=== PATIENT | male | born 1950 | race Caucasian/White ===

== ENCOUNTER 2016-10-23 13:14 | Emergency (ER) | payer MEDICARE, OTHER ==
[~2016-10-23] VITALS: Ht 162.6 cm; Wt 77.1 kg
--- NOTE | 2016-10-23 14:25 | REP ---
Clinical: EtOH abuse. Fall. Findings: Age-related atrophy and microvascular ischemic changes are appreciated. The ventricles and sulci are symmetric. Staton-white differentiation is maintained. There is no evidence for acute intracranial hemorrhage, mass/mass effect, pathology or infarction. No extra-axial fluid collection. Calvarium is intact. Paranasal sinuses and mastoid air cells are clear. Impression: Age related atrophy and microvascular ischemic changes. No acute intracranial hemorrhage, infarction, or mass/mass effect. Signed by Ahsan Weinstein MD 10/23/2016 02:16 P
--- NOTE | 2016-10-23 14:27 | REP ---
Clinical: EtOH abuse. Fall. Technique: Axial noncontrast images from the skull base to the thoracic inlet with coronal and sagittal re-formations. Findings: Moderate to advanced multilevel degenerative disc osteophyte complexes are noted. Alignment is maintained. No acute fracture / compression injury or subluxation. Spinal canal is patent. Posterior elements and spinous processes are intact. Paravertebral soft tissues normal. Impression: Moderate/advanced multilevel degenerative disc osteophyte complexes. No acute fracture / compression injury or subluxation. Signed by Ahsan Weinstein MD 10/23/2016 02:19 P
[2016-10-23 15:30] VITALS: BP 140/78
== END 2016-10-23 15:31 | disposition home or self-care (01) ==
LOC: EDBD 13:14 → EDUNIT# 13:14 → M ED 14:19
DX: F10.129 Alcohol abuse with intoxication, unspecified (principal); W19.XXXA Unspecified fall, initial encounter; Y92.410 Unspecified street and highway as the place of occurrence of the external cause; Y93.9 Activity, unspecified; Y99.9 Unspecified external cause status; M25.78 Osteophyte, vertebrae

== ENCOUNTER 2016-12-07 21:44 | Inpatient (IN) | payer MEDICARE ==
[~2016-12-07] VITALS: Ht 162.6 cm; Wt 73.5 kg
[2016-12-07 04:25] VITALS: BP 150/101
[2016-12-07] MEDS ORDERED: NS 1,000 ML IV ONE (22:00)
[2016-12-07 22:09] LABS: MEAN CORPUSCULAR HEMOGLOBIN 33.7 pg (27.0-33.0); MEAN CORPUSCULAR HGB CONC 34.1 g/dl (32.0-36.5); RED CELL DISTRIBUTION WIDTH 12.7 % (11.5-14.5); WHITE BLOOD COUNT 8.9 K/mm3 (4.0-10.0)
[2016-12-07 22:14] LABS: INR 1.02
[2016-12-07 22:33] LABS: ALBUMIN 3.8 GM/DL (3.2-5.2); ALKALINE PHOSPHATASE 140 U/L (45-117); ALT/SGPT 203 U/L (12-78); ANION GAP 15 MEQ/L (8-16); AST/SGOT 172 U/L (15-37); BILIRUBIN,DIRECT 0.3 MG/DL (0.0-0.2); BILIRUBIN,TOTAL 0.7 MG/DL (0.2-1.0); BLOOD UREA NITROGEN 9 MG/DL (7-18); CALCIUM LEVEL 8.6 MG/DL (8.8-10.2); CARBON DIOXIDE LEVEL 21 MEQ/L (21-32); CHLORIDE LEVEL 97 MEQ/L (98-107); CREATININE FOR GFR 1.08 MG/DL (0.70-1.30); GLOMERULAR FILTRATION RATE > 60.0 (>49); GLUCOSE, FASTING 152 MG/DL (80-110); POTASSIUM SERUM 3.4 MEQ/L (3.5-5.1); SODIUM LEVEL 133 MEQ/L (136-145)
--- NOTE | 2016-12-07 22:50 | REPUSA ---
CT of the head Clinical history: fall. Comparison: 10/23/2016. Protocol: Multiple axial CT images obtained with 5 mm slice thickness were obtained through the head without administration of contrast. Findings: The ventricles and sulci are symmetric but prominent in size bilaterally. There are periven tricular areas of low attenuation throughout the deep white matter. There is no evidence of acute hem orrhage or infarct. There is no midline shift, mass effect, or extra-axial fluid collection. The osse ous structures are unremarkable. The visualized paranasal sinuses and mastoid air cells are clear. Impression: No acute hemorrhage or infarct. Findings are consistent with stable age-related atrophy a nd chronic small vessel ischemic disease.
--- NOTE | 2016-12-07 23:00 | REPUSA ---
CT of the facial bones without contrast Clinical history: Pain, injury. Technique: Multiple axial CT images were obtained through the facial bones and paranasal sinuses util izing 3 mm axial slices without administration of contrast. Coronal and sagittal reconstructions were also obtained. Findings: There is mild chronic mucosal thickening in the posterior inferior left maxillary sinus.Th e other visualized paranasal sinuses are clear. The osteomeatal complexes are patent bilaterally. The nasal septum is midline. The visualized mastoid air cells are clear. The osseous structures do not d emonstrate any acute abnormalities. The superficial soft tissues are within normal limits. Impression: No acute osseous abnormality. Moderate mucosal changes in the left maxillary sinus.
--- NOTE | 2016-12-07 23:00 | REPUSA ---
CT of the cervical spine Clinical history: Pain. Technique: Multiple axial CT images were obtained through the cervical spine without administration o f contrast. Coronal and sagittal 3-D reconstructed images were also obtained. Comparison: None. Findings: The cervical vertebral bodies are in satisfactory positioning and alignment. No fractures or dislocat ions are demonstrated. The odontoid process is intact. Intervertebral disc spaces are moderately narr owed at C5/C6 and C6/C7. Mild bilateral facet arthropathy with overhanging osteophytes are noted. The re is no evidence of facet subluxation. The neural foramen appear grossly patent. The cervical crania l junction is intact. The cervical spinal canal demonstrates normal caliber and contour without evide nce of spinal stenosis. The surrounding soft tissues are within normal limits. Impression: No acute fracture or traumatic injury. Moderate spondylosis as described.
[2016-12-08] MEDS ORDERED: levETIRAcetam INJection 1,000 MG in D5W 100 ML IV ONE (00:15)
[2016-12-08] MEDS ORDERED: LORazepam 2 MG/ML VIAL (J2060) IV STA ×4 (00:23→00:55)
[2016-12-08] MEDS ORDERED: LORazepam 2 MG TAB PO PRN (00:30)
[2016-12-08] MEDS: KCL 20MEQ in NS 1000ML 1,000 ML IV SCH ×2 (00:41→19:33)
[2016-12-08] MEDS ORDERED: LORazepam 2 MG/ML VIAL (J2060) As Ordered ONE (00:56)
--- NOTE | 2016-12-08 01:28 | HPEPDOC ---
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 It was initially unclear what had happened to him, but it appeared that he had fallen and he was very confused. After being in the ER for a little while, he experienced a witnessed generalized tonic -clonic seizure. This lasted approximately 45-60 seconds and then self resolved. He experienced urinary incontinence during seizure. He also appears to have bit his tongue. The patient is unable to participate in the interview, and is extremely combative, constantly trying to get out of bed. We have no history on the patient from the EMR, I spoke to his son, Tobias Monique, who was listed as the next of kin. The son told me about the alcoholism and the prior injury leading to a TBI. The son also tells me, that the patient commonly runs out of alcohol before he receives his next paycheck, and he thinks that the patient has not received a check in a couple weeks. He reports that the patient has experienced alcohol withdrawal before, but he does not recall any history of seizures. Past medical history: alcoholism and prior injury resulting in TBI Past surgical history: Unknown Family history: Unknown Social history: The patient is an alcoholic. The son tells me that he thinks he was living in a hotel, as he does not currently have a place to live. Allergies: No known drug allergies Review of systems: Unable to obtain secondary to the patient's encephalopathy and combativeness as a result of his alcohol withdrawal and postictal stage Home meds: See below Physical exam:Please note that the exam was very limited secondary to the patient's constant combativeness. He had to be restrained by 2 male staff in order for me to examine him. Vital signs: Vital Signs Date Time Temp Pulse Resp B/P (MAP) Pulse Ox O2 Delivery O2 Flow Rate FiO2 12/08/16 00:42 124 20 156/108 (124) Room Air 12/08/16 00:29 98 12/07/16 21:54 98.5 Gen.: awake, combative, trying to get out of bed, Eyes: Extraocular movements intact ENT: There is dried blood on his lips. It appears that he might have a tongue laceration. Cardiovascular: RRR, no murmurs rubs or gallops Lungs: clear to auscultation bilaterally from an anterior position Abdomen: Soft, NT/ND, normal BS Musculoskeletal: normal range of motion Extremities: No peripheral edema Neuro: Awake and speaking; moving all extremities; the patient is unable to tell me his name, but reportedly when he first arrived, he knew his name and date Psych: Combative, requiring multiple male staff to restrain him Labs and radiology: See below Potassium 3.4 AST 172, ALT 203, alkaline phosphatase 140 Ammonia 14 Blood alcohol level undetectable CT of the head, C-spine, and face are unremarkable for acute findings Assessment and plan: 66-year-old male with alcoholism and prior injury resulting in TBI who presented with confusion and apparent fall. While in the emergency department, he experienced a witnessed generalized tonic-clonic seizure. 1. Generalized tonic-clonic seizure: It is suspected that this is secondary to alcohol withdrawal. The patient has received Ativan in the ER, and we will initiate the CIWA protocol in the ICU. He will also be receiving daily MVI, thiamine, and folate. At this time, the patient is too confused to safely take things orally, so he will be nothing by mouth and will have gentle IV fluids. Additionally, the patient was loaded with Keppra in the ED. We will get an EEG, and we'll continue scheduled Keppra until the EEG results are back. 2. Hypokalemia: We will replace this in the IV fluids. 3. Confusion: Most likely, it appears that this is encephalopathy secondary to alcohol withdrawal and postictal state. We now suspect that the fall he appears to have experienced prior to arrival was also likely secondary to a seizure. 4. Transaminitis: Suspect this is secondary to his alcohol use. He has had a history of minor elevations in our EMR, but this is much higher than it usually is. We'll continue to trend. When the patient stabilizes, he may benefit from a right upper quadrant ultrasound. DVT prophylaxis: Lovenox Dispo: the patient will be admitted as an inpatient to the service of Dr. Phipps. Prognosis at this time is guarded, as we have very little history on the patient. We will continue to reassess the clinical situation. MEG is korina Monique [phone]. His daughter is Irma Monique [phone]. CODE STATUS: Full Code Vital Signs Vital Signs Date Time Temp Pulse Resp B/P (MAP) Pulse Ox O2 Delivery O2 Flow Rate FiO2 12/08/16 00:42 124 20 156/108 (124) Room Air 12/08/16 00:29 98 12/07/16 21:54 98.5 Laboratory Data Labs 24H Laboratory Tests 2 12/07/16 21:59: Prothrombin Time 13.5, Prothromb Time International Ratio 1.02, Anion Gap 15, Glomerular Filtration Rate > 60.0, Calcium Level 8.6L, Aspartate Amino Transf ( AST/SGOT) 172H, Alanine Aminotransferase (ALT/SGPT) 203H, Alkaline Phosphatase 140H, Total Bilirubin 0.7, Direct Bilirubin 0.3H, Total Protein 8.0, Albumin 3.8 , Albumin/Globulin Ratio 0.90L, Ethyl Alcohol Level < 0.003 12/07/16 23:04: Ammonia 14 12/08/16 00:53: Urine Appearance CLEAR, Urine Color YELLOW, Urine pH 5.0, Urine Specific [place] 1.010, Urine Protein 1+H, Urine Glucose (UA) 1+H, Urine Ketones 1+H, Urine Urobilinogen 0.2, Urine Bilirubin NEGATIVE, Urine Leukocyte Esterase NEGATIVE, Urine Blood 2+H, Urine Nitrite NEGATIVE, Urine WBC (Auto) 0, Urine RBC (Auto) 1, Urine Hyaline Casts (Auto) 0, Urine Bacteria (Auto) 1+H, Urine Squamous Epithelial Cells 0, Urine Sperm (Auto) CBC/BMP Laboratory Tests 12/07/16 21:59 Red Blood Count 4.72, Mean Corpuscular Volume 99.0 H, Mean Corpuscular Hemoglobin 33.7 H, Mean Corpuscular Hemoglobin Concent 34.1, Red Cell Distribution Width 12.7 Home Medications No Active Prescriptions or Reported Meds Allergies Coded Allergies: No Known Drug Allergy (Verified Allergy, Unknown, 11/05/12) IRMA GALLARDO December 08, 2016 01:28
[2016-12-08 04:00] VITALS: BP 150/101
[2016-12-08 07:47] VITALS: BP 127/84
[2016-12-08 07:57] LABS: BASO % 0.2 % (0.0-1.0); EOS % 0.2 % (0.0-3.0); LARGE UNSTAINED CELL # 0.2 K/mm3 (0.0-0.4); LARGE UNSTAINED CELL % 1.5 % (0.0-4.0); LYMPH # 0.6 K/mm3 (1.5-4.5); MEAN CORPUSCULAR HEMOGLOBIN 33.4 pg (27.0-33.0); MEAN CORPUSCULAR HGB CONC 35.4 g/dl (32.0-36.5); MEAN CORPUSCULAR VOLUME 94.5 fl (80.0-96.0); MONO # 0.6 K/mm3 (0.0-0.8); MONO % 5.9 % (0.0-5.0); NEUTROPHILS # 9.4 K/mm3 (1.8-7.7); NEUTROPHILS % 88.2 % (36.0-66.0); PLATELET COUNT, AUTOMATED 123 k/mm3 (150-450); RED CELL DISTRIBUTION WIDTH 12.6 % (11.5-14.5); WHITE BLOOD COUNT 10.7 K/mm3 (4.0-10.0)
[2016-12-08 08:13] LABS: ALBUMIN 3.5 GM/DL (3.2-5.2); ALBUMIN/GLOBULIN RATIO 1.03 (1.00-1.93); ALKALINE PHOSPHATASE 113 U/L (45-117); ALT/SGPT 155 U/L (12-78); ANION GAP 10 MEQ/L (8-16); AST/SGOT 129 U/L (15-37); BILIRUBIN,TOTAL 1.4 MG/DL (0.2-1.0); BLOOD UREA NITROGEN 6 MG/DL (7-18); CARBON DIOXIDE LEVEL 23 MEQ/L (21-32); CHLORIDE LEVEL 99 MEQ/L (98-107); CREATININE FOR GFR 0.73 MG/DL (0.70-1.30); GLOMERULAR FILTRATION RATE > 60.0 (>49); GLUCOSE, FASTING 96 MG/DL (80-110); POTASSIUM SERUM 3.7 MEQ/L (3.5-5.1); SODIUM LEVEL 132 MEQ/L (136-145); TOTAL PROTEIN 6.9 GM/DL (6.4-8.2)
--- NOTE | 2016-12-08 08:43 | IPNPDOC ---
Subjective Date Seen The patient was seen on 12/08/16. Subjective Chief Complaint/HPI The patient is a 66-year-old male admitted with a reason for visit of Seizure. Events since last encounter pt seen and examined, oriented to self and time but not to place, very sleepy, no overnight events per nursing since he moved to the floor General: Reports: ROS Unobtainable Objective Physical Examination General Exam: Positive: No Acute Distress, Other (lethargic) ENT Exam: Positive: Atraumatic, Mucous membr. moist/pink Chest Exam: Positive: Clear to auscultation, Normal air movement Heart Exam: Positive: Tachycardic Abdomen Exam: Positive: Normal bowel sounds, Soft Extremity Exam: Negative: Cyanosis, Edema, Normal pulses, Tenderness, Swelling , Other Neuro Exam: Positive: Other (oriented X2 unable to follow commands) Assessment /Plan Problems (1) Metabolic encephalopathy Status: Acute Problem Text: * pt lives independently per son, and drinks etoh daily * he had a seizure in ED, received Ativan and keppra * has not had any seizures since * continue keppra bid, ativan prn, serax 10Q8 * continue neuro checks, seizure precautions and sitter (2) Seizure Status: Acute Problem Text: * continue keppra, ativan and serax * seizure precautions * likely secondary to etoh withdrawals (3) Hypokalemia Status: Resolved (4) Hyponatremia Status: Acute Response to Treatment: Stable Problem Text: * likely secondary to etoh abuse (5) Transaminitis Status: Acute (6) Thrombocytopenia Status: Acute (7) Alcohol abuse Status: Chronic Plan/VTE VTE Prophylaxis Ordered?: Yes VS, I&O, 24H, [facility] Vital Signs/I&O Vital Signs Date Time Temp Pulse Resp B/P (MAP) Pulse Ox O2 Delivery O2 Flow Rate FiO2 12/08/16 07:47 106 127/84 12/08/16 07:47 100.2 20 96 Room Air I&O- Last 24 Hours up to 6 AM 12/08/16 06:00 Intake Total 1325 ml Output Total 400 ml Balance 925 ml Laboratory Data 24H LABS Laboratory Tests 2 12/07/16 21:59: Prothrombin Time 13.5, Prothromb Time International Ratio 1.02, Anion Gap 15, Glomerular Filtration Rate > 60.0, Calcium Level 8.6L, Aspartate Amino Transf ( AST/SGOT) 172H, Alanine Aminotransferase (ALT/SGPT) 203H, Alkaline Phosphatase 140H, Total Bilirubin 0.7, Direct Bilirubin 0.3H, Total Protein 8.0, Albumin 3.8 , Albumin/Globulin Ratio 0.90L, Ethyl Alcohol Level < 0.003 12/07/16 23:04: Ammonia 14 12/08/16 00:53: Urine Appearance CLEAR, Urine Color YELLOW, Urine pH 5.0, Urine Specific [place] 1.010, Urine Protein 1+H, Urine Glucose (UA) 1+H, Urine Ketones 1+H, Urine Urobilinogen 0.2, Urine Bilirubin NEGATIVE, Urine Leukocyte Esterase NEGATIVE, Urine Blood 2+H, Urine Nitrite NEGATIVE, Urine WBC (Auto) 0, Urine RBC (Auto) 1, Urine Hyaline Casts (Auto) 0, Urine Bacteria (Auto) 1+H, Urine Squamous Epithelial Cells 0, Urine Sperm (Auto) 12/08/16 07:32: Anion Gap 10, Glomerular Filtration Rate > 60.0, Calcium Level 8.0L, Aspartate Amino Transf (AST/SGOT) 129H, Alanine Aminotransferase (ALT/SGPT) 155H, Alkaline Phosphatase 113, Total Bilirubin 1.4#H, Total Protein 6.9, Albumin 3.5 , Albumin/Globulin Ratio 1.03, White Blood Count 10.7H, Red Blood Count 4.49, Hemoglobin 15.0, Hematocrit 42.4, Mean Corpuscular Volume 94.5, Mean Corpuscular Hemoglobin 33.4H, Mean Corpuscular Hemoglobin Concent 35.4, Red Cell Distribution Width 12.6, Platelet Count 123L, Neutrophils (%) (Auto) 88.2H , Lymphocytes (%) (Auto) 4.0L, Monocytes (%) (Auto) 5.9H, Eosinophils (%) (Auto ) 0.2, Basophils (%) (Auto) 0.2, Neutrophils # (Auto) 9.4H, Lymphocytes # (Auto ) 0.6L, Monocytes # (Auto) 0.6, Eosinophils # (Auto) 0.0, Basophils # (Auto) 0.0 , Large Unclassified Cells % 1.5, Large Unclassified Cells # 0.2, Blood Urea Nitrogen 6L, Creatinine 0.73, Sodium Level 132L, Potassium Level 3.7, Chloride Level 99, Carbon Dioxide Level 23 CBC/BMP Laboratory Tests 12/07/16 21:59 Red Blood Count 4.72, Mean Corpuscular Volume 99.0 H, Mean Corpuscular Hemoglobin 33.7 H, Mean Corpuscular Hemoglobin Concent 34.1, Red Cell Distribution Width 12.7 12/08/16 07:32 Red Blood Count 4.49, Mean Corpuscular Volume 94.5, Mean Corpuscular Hemoglobin 33.4 H, Mean Corpuscular Hemoglobin Concent 35.4, Red Cell Distribution Width 12.6, Neutrophils (%) (Auto) 88.2 H, Lymphocytes (%) (Auto) 4.0 L, Monocytes (% ) (Auto) 5.9 H, Eosinophils (%) (Auto) 0.2, Basophils (%) (Auto) 0.2, Neutrophils # (Auto) 9.4 H, Lymphocytes # (Auto) 0.6 L, Monocytes # (Auto) 0.6, Eosinophils # (Auto) 0.0, Basophils # (Auto) 0.0, Calcium Level 8.0 L, Aspartate Amino Transf (AST/SGOT) 129 H, Alanine Aminotransferase (ALT/SGPT) 155 H, Alkaline Phosphatase 113, Total Bilirubin 1.4 #H, Total Protein 6.9, Albumin 3.5 RADHA TAVARES DO December 08, 2016 08:43
[2016-12-08] MEDS ORDERED: MULTIVITAMIN -ADULT INJECTION 10 ML, THIAMINE INJection 100 MG, FOLIC ACID 1 MG in NS 1... IV ONE (09:00)
[2016-12-08] MEDS ORDERED: MULTIVITAMINS/MINERALS THERAP 1 TAB PO SCH (09:00)
[2016-12-08] MEDS ORDERED: THIAMINE 100 MG TAB PO SCH (09:00)
[2016-12-08] MEDS ORDERED: FOLIC ACID 1 MG TAB PO SCH (09:00)
[2016-12-08] MEDS: OXAZEPAM 10 MG CAP PO SCH ×3 (09:03→21:53)
[2016-12-08] MEDS: ENOXAPARIN 40 MG/0.4 ML SYRINGE (J1650) SC SCH (09:03)
[2016-12-08 11:47] VITALS: BP 133/89
[2016-12-08] MEDS: levETIRAcetam INJection 500 MG in D5W MINI-BAG PLUS 100 ML IV SCH (12:01)
[2016-12-08 15:46] VITALS: BP 133/91
[2016-12-08 20:00] VITALS: BP 147/88
[2016-12-09] VITALS (30 sets, daily range): BP systolic 118–177; BP diastolic 76–110
[2016-12-09] MEDS: levETIRAcetam INJection 500 MG in D5W MINI-BAG PLUS 100 ML IV SCH ×3 (00:20→23:57)
[2016-12-09] MEDS: LORazepam 2 MG/ML VIAL (J2060) IV PRN ×4 (01:49→22:44)
[2016-12-09] MEDS ORDERED: LORazepam 2 MG/ML VIAL (J2060) IV ONE (02:20)
[2016-12-09] MEDS ORDERED: diphenhydrAMINE INJ 50MG/ML VIAL (J1200) As Ordered ONE ×2 (03:03→03:11)
[2016-12-09] MEDS ORDERED: HALOPERIDOL 5 MG/ML VIAL (J1630) As Ordered ONE (03:10)
[2016-12-09] MEDS ORDERED: HALOPERIDOL 5 MG/ML VIAL (J1630) IM STA (03:57)
[2016-12-09] MEDS ORDERED: LORazepam 2 MG/ML VIAL (J2060) IV STA (03:57)
[2016-12-09] MEDS ORDERED: diphenhydrAMINE INJ 50MG/ML VIAL (J1200) IV STA (03:57)
[2016-12-09 05:05] LABS: ALBUMIN 3.3 GM/DL (3.2-5.2); ALBUMIN/GLOBULIN RATIO 0.83 (1.00-1.93); ALKALINE PHOSPHATASE 94 U/L (45-117); ALT/SGPT 118 U/L (12-78); ANION GAP 10 MEQ/L (8-16); AST/SGOT 102 U/L (15-37); BLOOD UREA NITROGEN 6 MG/DL (7-18); CALCIUM LEVEL 8.3 MG/DL (8.8-10.2); CARBON DIOXIDE LEVEL 22 MEQ/L (21-32); CHLORIDE LEVEL 103 MEQ/L (98-107); GLOMERULAR FILTRATION RATE > 60.0 (>49); GLUCOSE, FASTING 96 MG/DL (80-110); POTASSIUM SERUM 3.5 MEQ/L (3.5-5.1); SODIUM LEVEL 135 MEQ/L (136-145); TOTAL PROTEIN 7.3 GM/DL (6.4-8.2)
[2016-12-09 05:11] LABS: BASO % 0.3 % (0.0-1.0); EOS % 0.6 % (0.0-3.0); LARGE UNSTAINED CELL # 0.2 K/mm3 (0.0-0.4); LARGE UNSTAINED CELL % 2.3 % (0.0-4.0); LYMPH # 0.9 K/mm3 (1.5-4.5); LYMPH % 10.8 % (24.0-44.0); MEAN CORPUSCULAR HEMOGLOBIN 32.8 pg (27.0-33.0); MEAN CORPUSCULAR HGB CONC 33.7 g/dl (32.0-36.5); MEAN CORPUSCULAR VOLUME 97.4 fl (80.0-96.0); MONO # 0.5 K/mm3 (0.0-0.8); MONO % 5.9 % (0.0-5.0); NEUTROPHILS % 80.1 % (36.0-66.0); PLATELET COUNT, AUTOMATED 108 k/mm3 (150-450); RED CELL DISTRIBUTION WIDTH 12.3 % (11.5-14.5); WHITE BLOOD COUNT 8.7 K/mm3 (4.0-10.0)
[2016-12-09] MEDS: OXAZEPAM 15 MG CAP PO SCH ×3 (06:00→20:50)
[2016-12-09] MEDS: ENOXAPARIN 40 MG/0.4 ML SYRINGE (J1650) SC SCH (09:45)
[2016-12-09] MEDS: KCL 20MEQ in NS 1000ML 1,000 ML IV SCH ×2 (09:46→22:44)
--- NOTE | 2016-12-09 10:16 | IPNPDOC ---
Subjective Date Seen The patient was seen on 12/09/16. Subjective Chief Complaint/HPI The patient is a 66-year-old male admitted with a reason for visit of Seizure. Events since last encounter pt seen and examined, was sleeping, he was very agitated overnight requiring multiple doses of Ativan and Haldol, now sleeping, General: Reports: ROS Unobtainable Objective Physical Examination General Exam: Positive: No Acute Distress, Other (lethargic) ENT Exam: Positive: Atraumatic, Mucous membr. moist/pink Chest Exam: Positive: Clear to auscultation, Normal air movement Heart Exam: Positive: Tachycardic Abdomen Exam: Positive: Normal bowel sounds, Soft Extremity Exam: Negative: Cyanosis, Edema, Normal pulses, Tenderness, Swelling , Other Neuro Exam: Positive: Other (oriented X2 unable to follow commands) Assessment /Plan Problems (1) Alcohol dependence with withdrawal Status: Acute Problem Text: * s/p seizures in ED on admission, he was started on keppra and he was given multiple doses of ativan * he was sleeping most of day on 12/08 and would wake up but would be very confused with hallucinations * overnight last night again was agitated, requiring a total of 12 mg of ativan and 6mg of haldol * continue Serax which pt will receive when he wakes up * continue to monitor on tele, pt continues to be tachycardic with heart rate in 120's (2) Metabolic encephalopathy Status: Acute Problem Text: * pt lives independently per son, and drinks etoh daily * he had a seizure in ED, received Ativan and keppra * has not had any seizures since * continue keppra bid, ativan prn, serax 15Q8 * continue neuro checks, seizure precautions and sitter (3) Seizure Status: Acute Problem Text: * continue keppra, ativan and serax * seizure precautions * likely secondary to etoh withdrawals (4) Hypokalemia Status: Resolved (5) Hyponatremia Status: Resolved Response to Treatment: Stable Problem Text: * likely secondary to etoh abuse (6) Transaminitis Status: Acute Response to Treatment: Worse Problem Text: * likely secondary to chronic liver disease due to etoh abuse * hepatitis panel negative * bilirubin continues to worsen (7) Thrombocytopenia Status: Acute Response to Treatment: Worse Problem Text: * no obvious signs of bleeding * continue to monitor Plan/VTE VTE Prophylaxis Ordered?: Yes VS, I&O, 24H, [facility] Vital Signs/I&O Vital Signs Date Time Temp Pulse Resp B/P (MAP) Pulse Ox O2 Delivery O2 Flow Rate FiO2 12/09/16 08:00 106 18 146/90 (108) 97 Nasal Cannula 3.0 12/09/16 04:02 98.1 I&O- Last 24 Hours up to 6 AM 12/09/16 05:59 Intake Total 775 ml Output Total 1425 ml Balance -650 ml Laboratory Data 24H LABS Laboratory Tests 2 12/09/16 04:24: White Blood Count 8.7, Red Blood Count 4.64, Hemoglobin 15.3, Hematocrit 45.2, Mean Corpuscular Volume 97.4H, Mean Corpuscular Hemoglobin 32.8, Mean Corpuscular Hemoglobin Concent 33.7, Red Cell Distribution Width 12.3, Platelet Count 108L, Neutrophils (%) (Auto) 80.1H, Lymphocytes (%) (Auto) 10.8L, Monocytes (%) (Auto) 5.9H, Eosinophils (%) (Auto) 0.6, Basophils (%) (Auto) 0.3 , Neutrophils # (Auto) 7.0, Lymphocytes # (Auto) 0.9L, Monocytes # (Auto) 0.5, Eosinophils # (Auto) 0.0, Basophils # (Auto) 0.0, Large Unclassified Cells % 2.3 , Large Unclassified Cells # 0.2, Anion Gap 10, Glomerular Filtration Rate > 60.0, Blood Urea Nitrogen 6L, Creatinine 0.90, Sodium Level 135L, Potassium Level 3.5, Chloride Level 103, Carbon Dioxide Level 22, Calcium Level 8.3L, Aspartate Amino Transf (AST/SGOT) 102H, Alanine Aminotransferase (ALT/SGPT) 118H , Alkaline Phosphatase 94, Total Bilirubin 2.0H, Total Protein 7.3, Albumin 3.3 , Magnesium Level 2.0, Albumin/Globulin Ratio 0.83L CBC/BMP Laboratory Tests 12/09/16 04:24 Red Blood Count 4.64, Mean Corpuscular Volume 97.4 H, Mean Corpuscular Hemoglobin 32.8, Mean Corpuscular Hemoglobin Concent 33.7, Red Cell Distribution Width 12.3, Neutrophils (%) (Auto) 80.1 H, Lymphocytes (%) (Auto) 10.8 L, Monocytes (%) (Auto) 5.9 H, Eosinophils (%) (Auto) 0.6, Basophils (%) ( Auto) 0.3, Neutrophils # (Auto) 7.0, Lymphocytes # (Auto) 0.9 L, Monocytes # ( Auto) 0.5, Eosinophils # (Auto) 0.0, Basophils # (Auto) 0.0, Calcium Level 8.3 L , Aspartate Amino Transf (AST/SGOT) 102 H, Alanine Aminotransferase (ALT/SGPT) 118 H, Alkaline Phosphatase 94, Total Bilirubin 2.0 H, Total Protein 7.3, Albumin 3.3 RADHA TAVARES DO December 09, 2016 10:16
[2016-12-10] VITALS (10 sets, daily range): BP systolic 123–160; BP diastolic 76–108
[2016-12-10] MEDS: LORazepam 2 MG/ML VIAL (J2060) IV PRN ×2 (00:39→01:52)
[2016-12-10] MEDS ORDERED: diphenhydrAMINE INJ 50MG/ML VIAL (J1200) As Ordered ONE (02:21)
[2016-12-10] MEDS ORDERED: diphenhydrAMINE INJ 50MG/ML VIAL (J1200) IV ONE (02:30)
[2016-12-10] MEDS ORDERED: LORazepam 2 MG/ML VIAL (J2060) IV ONE ×2 (02:30→03:15)
[2016-12-10] MEDS ORDERED: HALOPERIDOL 5 MG/ML VIAL (J1630) IM ONE (03:15)
[2016-12-10 04:34] LABS: BASO % 0.3 % (0.0-1.0); EOS # 0.1 K/mm3 (0.0-0.50); EOS % 1.6 % (0.0-3.0); LARGE UNSTAINED CELL # 0.3 K/mm3 (0.0-0.4); LARGE UNSTAINED CELL % 3.3 % (0.0-4.0); LYMPH % 12.4 % (24.0-44.0); MEAN CORPUSCULAR HEMOGLOBIN 34.2 pg (27.0-33.0); MEAN CORPUSCULAR HGB CONC 35.1 g/dl (32.0-36.5); MEAN CORPUSCULAR VOLUME 97.3 fl (80.0-96.0); MONO # 0.5 K/mm3 (0.0-0.8); NEUTROPHILS # 6.1 K/mm3 (1.8-7.7); NEUTROPHILS % 76.4 % (36.0-66.0); PLATELET COUNT, AUTOMATED 102 k/mm3 (150-450); RED CELL DISTRIBUTION WIDTH 12.1 % (11.5-14.5); WHITE BLOOD COUNT 7.9 K/mm3 (4.0-10.0)
[2016-12-10 05:08] LABS: ALBUMIN 3.2 GM/DL (3.2-5.2); ALBUMIN/GLOBULIN RATIO 0.86 (1.00-1.93); ALKALINE PHOSPHATASE 92 U/L (45-117); ALT/SGPT 97 U/L (12-78); ANION GAP 10 MEQ/L (8-16); AST/SGOT 115 U/L (15-37); BILIRUBIN,TOTAL 1.6 MG/DL (0.2-1.0); BLOOD UREA NITROGEN 6 MG/DL (7-18); CARBON DIOXIDE LEVEL 21 MEQ/L (21-32); CHLORIDE LEVEL 104 MEQ/L (98-107); CREATININE FOR GFR 0.65 MG/DL (0.70-1.30); GLOMERULAR FILTRATION RATE > 60.0 (>49); GLUCOSE, FASTING 87 MG/DL (80-110); MAGNESIUM LEVEL 1.9 MG/DL (1.8-2.4); POTASSIUM SERUM 3.6 MEQ/L (3.5-5.1); SODIUM LEVEL 135 MEQ/L (136-145); TOTAL PROTEIN 6.9 GM/DL (6.4-8.2)
--- NOTE | 2016-12-10 05:10 | EEG ---
DATE OF PROCEDURE: 12/08/2016 REFERRING PHYSICIAN: Dr. Vickie Phipps DIAGNOSIS: Seizure. EEG NUMBER: [id number]. HISTORY: Patient is a 66-year-old man who was admitted at [facility] due to alcoholism and a generalized tonic-clonic seizure. This EEG was done to rule out epileptic potential. He is currently on Keppra, thiamine, folic acid, Serax, Ativan, etc. TECHNICAL DESCRIPTION: This digital EEG was recorded by 21 scalp, ear and two EKG electrodes and was reviewed in bipolar and referential montages following reformatting in 10-20 international electrode placement system. INTERPRETATION: Patient was noted to be in awake and drowsy states during this EEG. Resting awake background rhythm consisted of well-formed posterior dominant rhythm with anterior/posterior gradient comprising of 9 Hz alpha activity measuring 15-40 microvolts in amplitude, which was symmetric and reactive to eye opening. Attenuation of posterior dominant rhythm was seen during transition into drowsiness. Stage I and II sleep were reviewed and were symmetric bilaterally. Hyperventilation could not be performed. Photic stimulation at 3-30 Hz elicited symmetric photic driving especially at mid frequencies. EKG revealed normal sinus rhythm. No focal, lateralizing or epileptiform abnormalities were seen. No clinical or electrographic seizures were recorded. CONCLUSION: This EEG in awake, drowsy states, stage I and II sleep is within normal limits.
[2016-12-10] MEDS: OXAZEPAM 15 MG CAP PO SCH ×3 (06:08→22:25)
[2016-12-10] MEDS: ENOXAPARIN 40 MG/0.4 ML SYRINGE (J1650) SC SCH (08:44)
[2016-12-10] MEDS: levETIRAcetam INJection 500 MG in D5W MINI-BAG PLUS 100 ML IV SCH (12:25)
[2016-12-10] MEDS: KCL 20MEQ in NS 1000ML 1,000 ML IV SCH (12:26)
--- NOTE | 2016-12-10 22:08 | IPNPDOC ---
Subjective Date Seen The patient was seen on 12/10/16. Subjective Chief Complaint/HPI The patient is a 66-year-old male admitted with a reason for visit of Seizure. Objective Physical Examination General Exam: Positive: No Acute Distress, Other (lethargic) ENT Exam: Positive: Atraumatic, Mucous membr. moist/pink Chest Exam: Positive: Clear to auscultation, Normal air movement Heart Exam: Positive: Tachycardic Abdomen Exam: Positive: Normal bowel sounds, Soft Extremity Exam: Negative: Cyanosis, Edema, Normal pulses, Tenderness, Swelling , Other Neuro Exam: Positive: Other (oriented X2 unable to follow commands) Assessment /Plan Problems (1) Alcohol dependence with withdrawal Status: Acute Problem Text: * s/p seizures in ED on admission, he was started on keppra and he was given multiple doses of ativan * he was sleeping most of day on 12/08 and would wake up but would be very confused with hallucinations * overnight last night again was agitated, requiring a total of 12 mg of ativan and 6mg of haldol * continue Serax which pt will receive when he wakes up * continue to monitor on tele, pt continues to be tachycardic with heart rate in 120's (2) Metabolic encephalopathy Status: Acute Problem Text: * pt lives independently per son, and drinks etoh daily * he had a seizure in ED, received Ativan and keppra * has not had any seizures since * continue keppra bid, ativan prn, serax 15Q8 * continue neuro checks, seizure precautions and sitter (3) Seizure Status: Acute Problem Text: * continue keppra, ativan and serax * seizure precautions * likely secondary to etoh withdrawals (4) Hypokalemia Status: Resolved (5) Hyponatremia Status: Resolved Response to Treatment: Stable Problem Text: * likely secondary to etoh abuse (6) Transaminitis Status: Acute Response to Treatment: Worse Problem Text: * likely secondary to chronic liver disease due to etoh abuse * hepatitis panel negative * bilirubin continues to worsen (7) Thrombocytopenia Status: Acute Response to Treatment: Worse Problem Text: * no obvious signs of bleeding * continue to monitor Plan/VTE VTE Prophylaxis Ordered?: Yes VS, I&O, 24H, Fishbone Vital Signs/I&O Vital Signs Date Time Temp Pulse Resp B/P (MAP) Pulse Ox O2 Delivery O2 Flow Rate FiO2 12/10/16 20:00 97.9 96 20 155/101 (119) 96 Room Air 12/10/16 08:02 3.0 I&O- Last 24 Hours up to 6 AM 12/10/16 06:00 Intake Total 2850 ml Output Total 1325 ml Balance 1525 ml Laboratory Data 24H LABS Laboratory Tests 2 12/10/16 04:23: White Blood Count 7.9, Red Blood Count 4.57, Hemoglobin 15.6, Hematocrit 44.5, Mean Corpuscular Volume 97.3H, Mean Corpuscular Hemoglobin 34.2H, Mean Corpuscular Hemoglobin Concent 35.1, Red Cell Distribution Width 12.1, Platelet Count 102L, Neutrophils (%) (Auto) 76.4H, Lymphocytes (%) (Auto) 12.4L, Monocytes (%) (Auto) 6.0H, Eosinophils (%) (Auto) 1.6, Basophils (%) (Auto) 0.3 , Neutrophils # (Auto) 6.1, Lymphocytes # (Auto) 1.0L, Monocytes # (Auto) 0.5, Eosinophils # (Auto) 0.1, Basophils # (Auto) 0.0, Large Unclassified Cells % 3.3 , Large Unclassified Cells # 0.3, Anion Gap 10, Glomerular Filtration Rate > 60.0, Blood Urea Nitrogen 6L, Creatinine 0.65L, Sodium Level 135L, Potassium Level 3.6, Chloride Level 104, Carbon Dioxide Level 21, Calcium Level 8.0L, Aspartate Amino Transf (AST/SGOT) 115H, Alanine Aminotransferase (ALT/SGPT) 97H , Alkaline Phosphatase 92, Total Bilirubin 1.6H, Total Protein 6.9, Albumin 3.2 , Magnesium Level 1.9, Albumin/Globulin Ratio 0.86L CBC/BMP Laboratory Tests 12/10/16 04:23 Red Blood Count 4.57, Mean Corpuscular Volume 97.3 H, Mean Corpuscular Hemoglobin 34.2 H, Mean Corpuscular Hemoglobin Concent 35.1, Red Cell Distribution Width 12.1, Neutrophils (%) (Auto) 76.4 H, Lymphocytes (%) (Auto) 12.4 L, Monocytes (%) (Auto) 6.0 H, Eosinophils (%) (Auto) 1.6, Basophils (%) ( Auto) 0.3, Neutrophils # (Auto) 6.1, Lymphocytes # (Auto) 1.0 L, Monocytes # ( Auto) 0.5, Eosinophils # (Auto) 0.1, Basophils # (Auto) 0.0, Calcium Level 8.0 L , Aspartate Amino Transf (AST/SGOT) 115 H, Alanine Aminotransferase (ALT/SGPT) 97 H, Alkaline Phosphatase 92, Total Bilirubin 1.6 H, Total Protein 6.9, Albumin 3.2 RADHA TAVARES DO December 10, 2016 22:08
[2016-12-11] VITALS: BP 131/74
[2016-12-11] MEDS: KCL 20MEQ in NS 1000ML 1,000 ML IV SCH ×2 (00:29→13:26)
[2016-12-11] MEDS: levETIRAcetam INJection 500 MG in D5W MINI-BAG PLUS 100 ML IV SCH (00:29)
[2016-12-11 04:00] VITALS: BP 130/89
[2016-12-11 04:32] LABS: BASO % 0.5 % (0.0-1.0); EOS # 0.2 K/mm3 (0.0-0.50); EOS % 2.9 % (0.0-3.0); LARGE UNSTAINED CELL # 0.3 K/mm3 (0.0-0.4); LARGE UNSTAINED CELL % 4.4 % (0.0-4.0); LYMPH # 1.1 K/mm3 (1.5-4.5); MEAN CORPUSCULAR HEMOGLOBIN 33.9 pg (27.0-33.0); MONO # 0.7 K/mm3 (0.0-0.8); NEUTROPHILS # 4.5 K/mm3 (1.8-7.7); NEUTROPHILS % 66.2 % (36.0-66.0); PLATELET COUNT, AUTOMATED 134 k/mm3 (150-450); RED CELL DISTRIBUTION WIDTH 12.3 % (11.5-14.5); WHITE BLOOD COUNT 6.8 K/mm3 (4.0-10.0)
[2016-12-11 05:06] LABS: ALBUMIN/GLOBULIN RATIO 0.79 (1.00-1.93); ALKALINE PHOSPHATASE 95 U/L (45-117); ALT/SGPT 86 U/L (12-78); ANION GAP 10 MEQ/L (8-16); AST/SGOT 87 U/L (15-37); BILIRUBIN,TOTAL 1.6 MG/DL (0.2-1.0); BLOOD UREA NITROGEN 8 MG/DL (7-18); CARBON DIOXIDE LEVEL 23 MEQ/L (21-32); CHLORIDE LEVEL 103 MEQ/L (98-107); CREATININE FOR GFR 0.73 MG/DL (0.70-1.30); GLOMERULAR FILTRATION RATE > 60.0 (>49); GLUCOSE, FASTING 72 MG/DL (80-110); MAGNESIUM LEVEL 1.9 MG/DL (1.8-2.4); POTASSIUM SERUM 3.9 MEQ/L (3.5-5.1); SODIUM LEVEL 136 MEQ/L (136-145); TOTAL PROTEIN 6.8 GM/DL (6.4-8.2)
[2016-12-11] MEDS: OXAZEPAM 15 MG CAP PO SCH ×3 (07:02→22:03)
--- NOTE | 2016-12-11 07:30 | REP ---
RIGHT UPPER QUADRANT ULTRASOUND: Real-time sonographic evaluation of the right upper quadrant performed. Gallbladder demonstrates no evidence of intraluminal sludge or calculi, wall thickening or pericholecystic fluid. There is no intrahepatic or extrahepatic biliary dilatation, common bile duct measuring 4 mm in diameter. Liver demonstrates diffuse increased echotexture compatible with diffuse fibrofatty infiltration. No gross liver or pancreatic mass is seen. Pancreatic tail could not be seen due to overlying bowel gas. The right kidney demonstrates no hydronephrosis with normal size at 11 cm in length. IMPRESSION: Diffuse fibrofatty infiltration of the liver. Signed by Marty Staton MD 12/11/2016 07:44 P
[2016-12-11 08:10] VITALS: BP 120/75
[2016-12-11] MEDS: ENOXAPARIN 40 MG/0.4 ML SYRINGE (J1650) SC SCH (09:50)
[2016-12-11 22:00] VITALS: BP 144/84
[2016-12-12] MEDS: KCL 20MEQ in NS 1000ML 1,000 ML IV SCH (01:56)
[2016-12-12] MEDS: OXAZEPAM 15 MG CAP PO SCH (05:17)
[2016-12-12 06:00] VITALS: BP 160/80
[2016-12-12 06:25] LABS: BASO % 0.5 % (0.0-1.0); EOS # 0.2 K/mm3 (0.0-0.50); EOS % 3.4 % (0.0-3.0); LARGE UNSTAINED CELL # 0.3 K/mm3 (0.0-0.4); LARGE UNSTAINED CELL % 3.9 % (0.0-4.0); LYMPH # 1.3 K/mm3 (1.5-4.5); LYMPH % 15.6 % (24.0-44.0); MEAN CORPUSCULAR HEMOGLOBIN 33.5 pg (27.0-33.0); MEAN CORPUSCULAR HGB CONC 35.6 g/dl (32.0-36.5); MEAN CORPUSCULAR VOLUME 94.1 fl (80.0-96.0); MONO # 0.6 K/mm3 (0.0-0.8); MONO % 8.9 % (0.0-5.0); NEUTROPHILS # 4.6 K/mm3 (1.8-7.7); NEUTROPHILS % 67.7 % (36.0-66.0); PLATELET COUNT, AUTOMATED 156 k/mm3 (150-450); RED CELL DISTRIBUTION WIDTH 12.7 % (11.5-14.5); WHITE BLOOD COUNT 6.8 K/mm3 (4.0-10.0)
[2016-12-12 06:38] LABS: ALBUMIN 2.8 GM/DL (3.2-5.2); ALBUMIN/GLOBULIN RATIO 0.76 (1.00-1.93); ALKALINE PHOSPHATASE 127 U/L (45-117); ALT/SGPT 68 U/L (12-78); ANION GAP 7 MEQ/L (8-16); AST/SGOT 50 U/L (15-37); BILIRUBIN,TOTAL 0.9 MG/DL (0.2-1.0); BLOOD UREA NITROGEN 5 MG/DL (7-18); CARBON DIOXIDE LEVEL 22 MEQ/L (21-32); CHLORIDE LEVEL 108 MEQ/L (98-107); CREATININE FOR GFR 0.66 MG/DL (0.70-1.30); GLOMERULAR FILTRATION RATE > 60.0 (>49); GLUCOSE, FASTING 110 MG/DL (80-110); MAGNESIUM LEVEL 1.7 MG/DL (1.8-2.4); POTASSIUM SERUM 3.5 MEQ/L (3.5-5.1); SODIUM LEVEL 137 MEQ/L (136-145); TOTAL PROTEIN 6.5 GM/DL (6.4-8.2)
[2016-12-12] MEDS: ENOXAPARIN 40 MG/0.4 ML SYRINGE (J1650) SC SCH (08:57)
--- NOTE | 2016-12-12 09:27 | IPNPDOC ---
Subjective Date Seen The patient was seen on 12/12/16. Subjective Chief Complaint/HPI The patient is a 66-year-old male admitted with a reason for visit of Seizure. Events since last encounter pt seen and examined, doing well, was up in bed, eating breakfast, no overnight events Constitutional: Denies: Chills, Fever, Night Sweats Cardiovascular: Denies: Chest Pain, Palpitations, Orthopnea, Paroxysmal Noc. Dyspnea, Lt Headedness Gastrointestinal: Denies: Nausea, Vomiting, Abdominal Pain, Diarrhea, Constipation Objective Physical Examination General Exam: Positive: Alert, Cooperative, No Acute Distress, Other (lethargic ) ENT Exam: Positive: Atraumatic, Mucous membr. moist/pink Chest Exam: Positive: Clear to auscultation, Normal air movement Heart Exam: Positive: Rate Normal Abdomen Exam: Positive: Normal bowel sounds, Soft Extremity Exam: Negative: Cyanosis, Edema, Normal pulses, Tenderness, Swelling , Other Assessment /Plan Problems (1) Alcohol dependence with withdrawal Status: Acute Response to Treatment: Improving Problem Text: * s/p seizures in ED on admission, he was started on keppra and he was given multiple doses of ativan * currently awake alert oriented * will d/c keppra * will recommend that pt follows up with neurology outpt * he has no known history of seizure disorders,therefore it is thought to be due to his ETOH * will titrate serax dose * continue folic acid, thiamine and mvi * d/c IV fluids (2) Metabolic encephalopathy Status: Acute Response to Treatment: Improving Problem Text: * pt lives independently per son and daughter, pt drinks etoh daily * he had a seizure in ED, received Ativan and keppra * has not had any seizures since * pt currently is oriented to self place and time (3) Seizure Status: Resolved Problem Text: * will d/c keppra and continue serax * will refer pt to see neurology outpt * he has no history of seizures and 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[employer] (4) Hypokalemia Status: Resolved (5) Hyponatremia Status: Resolved Response to Treatment: Stable Problem Text: * likely secondary to etoh abuse (6) Transaminitis Status: Acute Response to Treatment: Stable Problem Text: * likely secondary to chronic liver disease due to etoh abuse * hepatitis panel negative * bilirubin continues to worsen (7) Thrombocytopenia Status: Acute Response to Treatment: Stable Problem Text: * no obvious signs of bleeding * continue to monitor Plan/VTE VTE Prophylaxis Ordered?: Yes VS, I&O, 24H, [facility] Vital Signs/I&O Vital Signs Date Time Temp Pulse Resp B/P (MAP) Pulse Ox O2 Delivery O2 Flow Rate FiO2 12/12/16 06:00 98.1 81 18 160/80 (106) 98 Room Air 12/10/16 08:02 3.0 I&O- Last 24 Hours up to 6 AM 12/12/16 06:00 Intake Total 2100 ml Balance 2100 ml Laboratory Data 24H LABS Laboratory Tests 2 12/12/16 05:50: White Blood Count 6.8, Red Blood Count 4.23L, Hemoglobin 14.2, Hematocrit 39.8L , Mean Corpuscular Volume 94.1, Mean Corpuscular Hemoglobin 33.5H, Mean Corpuscular Hemoglobin Concent 35.6, Red Cell Distribution Width 12.7, Platelet Count 156, Neutrophils (%) (Auto) 67.7H, Lymphocytes (%) (Auto) 15.6L, Monocytes (%) (Auto) 8.9H, Eosinophils (%) (Auto) 3.4H, Basophils (%) (Auto) 0.5 , Neutrophils # (Auto) 4.6, Lymphocytes # (Auto) 1.3L, Monocytes # (Auto) 0.6, Eosinophils # (Auto) 0.2, Basophils # (Auto) 0.0, Large Unclassified Cells % 3.9 , Large Unclassified Cells # 0.3, Anion Gap 7L, Glomerular Filtration Rate > 60.0, Blood Urea Nitrogen 5L, Creatinine 0.66L, Sodium Level 137, Potassium Level 3.5, Chloride Level 108H, Carbon Dioxide Level 22, Calcium Level 8.0L, Aspartate Amino Transf (AST/SGOT) 50H, Alanine Aminotransferase (ALT/SGPT) 68, Alkaline Phosphatase 127H, Total Bilirubin 0.9, Total Protein 6.5, Albumin 2.8L , Magnesium Level 1.7L, Albumin/Globulin Ratio 0.76L CBC/BMP Laboratory Tests 12/12/16 05:50 Red Blood Count 4.23 L, Mean Corpuscular Volume 94.1, Mean Corpuscular Hemoglobin 33.5 H, Mean Corpuscular Hemoglobin Concent 35.6, Red Cell Distribution Width 12.7, Neutrophils (%) (Auto) 67.7 H, Lymphocytes (%) (Auto) 15.6 L, Monocytes (%) (Auto) 8.9 H, Eosinophils (%) (Auto) 3.4 H, Basophils (%) (Auto) 0.5, Neutrophils # (Auto) 4.6, Lymphocytes # (Auto) 1.3 L, Monocytes # ( Auto) 0.6, Eosinophils # (Auto) 0.2, Basophils # (Auto) 0.0, Calcium Level 8.0 L , Aspartate Amino Transf (AST/SGOT) 50 H, Alanine Aminotransferase (ALT/SGPT) 68 , Alkaline Phosphatase 127 H, Total Bilirubin 0.9, Total Protein 6.5, Albumin 2.8 L RADHA TAVARES DO December 12, 2016 09:27
[2016-12-12] MEDS ORDERED: MAG SULF 1GM/100ML (MAG RUN) 1 GM in APPROPRIATE DILUENT 1 EA IV ONE (10:00)
[2016-12-12] MEDS: THIAMINE 100 MG TAB PO SCH (12:40)
[2016-12-12] MEDS: FOLIC ACID 1 MG TAB PO SCH (12:40)
[2016-12-12] MEDS: MULTIVITAMINS/MINERALS THERAP 1 TAB PO SCH (12:40)
[2016-12-12 14:00] VITALS: BP 132/93
[2016-12-12] MEDS: OXAZEPAM 10 MG CAP PO SCH ×2 (16:25→22:07)
[2016-12-12 22:00] VITALS: BP 169/97
[2016-12-13 06:00] VITALS: BP 124/92
[2016-12-13] MEDS: OXAZEPAM 10 MG CAP PO SCH ×3 (06:24→22:22)
[2016-12-13 06:44] LABS: BASO % 0.6 % (0.0-1.0); EOS # 0.3 K/mm3 (0.0-0.50); EOS % 3.7 % (0.0-3.0); LARGE UNSTAINED CELL # 0.3 K/mm3 (0.0-0.4); LARGE UNSTAINED CELL % 3.6 % (0.0-4.0); LYMPH # 1.5 K/mm3 (1.5-4.5); LYMPH % 18.2 % (24.0-44.0); MEAN CORPUSCULAR HEMOGLOBIN 33.2 pg (27.0-33.0); MEAN CORPUSCULAR HGB CONC 34.9 g/dl (32.0-36.5); MEAN CORPUSCULAR VOLUME 95.2 fl (80.0-96.0); MONO # 0.6 K/mm3 (0.0-0.8); MONO % 8.9 % (0.0-5.0); NEUTROPHILS # 4.5 K/mm3 (1.8-7.7); PLATELET COUNT, AUTOMATED 187 k/mm3 (150-450); RED CELL DISTRIBUTION WIDTH 12.6 % (11.5-14.5); WHITE BLOOD COUNT 6.8 K/mm3 (4.0-10.0)
[2016-12-13 07:00] LABS: ALBUMIN 3.1 GM/DL (3.2-5.2); ALBUMIN/GLOBULIN RATIO 0.78 (1.00-1.93); ALKALINE PHOSPHATASE 109 U/L (45-117); ALT/SGPT 76 U/L (12-78); ANION GAP 7 MEQ/L (8-16); AST/SGOT 58 U/L (15-37); BLOOD UREA NITROGEN 4 MG/DL (7-18); CALCIUM LEVEL 8.7 MG/DL (8.8-10.2); CARBON DIOXIDE LEVEL 26 MEQ/L (21-32); CHLORIDE LEVEL 102 MEQ/L (98-107); CREATININE FOR GFR 0.76 MG/DL (0.70-1.30); GLOMERULAR FILTRATION RATE > 60.0 (>49); GLUCOSE, FASTING 96 MG/DL (80-110); POTASSIUM SERUM 3.6 MEQ/L (3.5-5.1); SODIUM LEVEL 135 MEQ/L (136-145); TOTAL PROTEIN 7.1 GM/DL (6.4-8.2)
[2016-12-13] MEDS: FOLIC ACID 1 MG TAB PO SCH (09:26)
[2016-12-13] MEDS: MULTIVITAMINS/MINERALS THERAP 1 TAB PO SCH (09:26)
[2016-12-13] MEDS: THIAMINE 100 MG TAB PO SCH (09:26)
[2016-12-13] MEDS: ENOXAPARIN 40 MG/0.4 ML SYRINGE (J1650) SC SCH (09:26)
[2016-12-13 14:00] VITALS: BP 131/84
[2016-12-13] MEDS ORDERED: OXAZ10CA PO (17:07)
[2016-12-13] MEDS ORDERED: FOLI1TAB2 PO (17:07)
[2016-12-13] MEDS ORDERED: THIA100TA PO (17:07)
[2016-12-13] MEDS ORDERED: VITMTA PO (17:07)
[2016-12-13 22:00] VITALS: BP 112/76
[2016-12-14] MEDS: OXAZEPAM 10 MG CAP PO SCH (05:35)
[2016-12-14 06:00] VITALS: BP 108/76
[2016-12-14 07:30] LABS: BASO # 0.1 K/mm3 (0.0-0.2); BASO % 0.8 % (0.0-1.0); EOS # 0.3 K/mm3 (0.0-0.50); EOS % 3.6 % (0.0-3.0); LARGE UNSTAINED CELL # 0.3 K/mm3 (0.0-0.4); LARGE UNSTAINED CELL % 3.8 % (0.0-4.0); LYMPH # 1.6 K/mm3 (1.5-4.5); LYMPH % 17.3 % (24.0-44.0); MEAN CORPUSCULAR HEMOGLOBIN 33.7 pg (27.0-33.0); MEAN CORPUSCULAR HGB CONC 35.6 g/dl (32.0-36.5); MEAN CORPUSCULAR VOLUME 94.7 fl (80.0-96.0); MONO # 0.6 K/mm3 (0.0-0.8); MONO % 8.6 % (0.0-5.0); PLATELET COUNT, AUTOMATED 227 k/mm3 (150-450); RED CELL DISTRIBUTION WIDTH 12.5 % (11.5-14.5); WHITE BLOOD COUNT 7.5 K/mm3 (4.0-10.0)
--- NOTE | 2016-12-14 07:39 | DSES ---
DATE OF ADMISSION: 12/08/2016 DATE OF DISCHARGE: 12/13/2016 REASON FOR ADMISSION: Altered mental status, status post seizure. FINAL DIAGNOSES: 1. Alcohol withdrawal 2. Seizure secondary to alcohol withdrawals. 3. Metabolic encephalopathy. 4. Hypokalemia. 5. Hyponatremia. 6. Transaminitis. 7. Thrombocytopenia. PRIMARY CARE PROVIDER: None. The patient used to see Dr. Novak, he is supposed to have an appointment with [facility] but he does not know when. HISTORY OF PRESENT ILLNESS: The patient is a 56-year-old male with history of alcohol abuse presented to the emergency room via emergency medical services (EMS) after he had two episodes of seizures at the hotel. The patient was found down by his girlfriend, she called the ambulance. He was very confused in the emergency room. In the emergency room he experienced a witnessed generalized tonic-clonic seizure which lasted about 45-60 seconds and self resolved. He experienced urinary incontinence during the seizure and he appeared to have bitten his tongue. The patient was unable to participate in the interview due to extreme agitation. He was constantly trying to get out of bed. Most of the history is obtained from medical records. Dr. Gaming who did the admission has also spoken to his son Farzad Monique, who is listed as next of kin. He told her that he has history of alcoholism and a prior head injury. The patient denied any history of known seizure, nor was he on any antiepileptic medications. He was admitted under hospitalist service to the intensive care unit (ICU). HOSPITAL COURSE: The patient was admitted to the ICU. He continued to be extremely agitated requiring large doses of Ativan and Haldol to keep the patient sedated in bed. He also required a bedside sitter. His vitals remained stable. He did not require any airway protection; however, he was made nothing by mouth. He was started on any antibiotic with thiamine, folate, multivitamin. He was also started on Serax; however the first day he did not take any since it was an oral medication. The following night the patient did seem the same. He was somnolent and lethargic most of the day and in the evening and at nighttime he was very agitated requiring again large doses of Ativan up to 12 mg and Haldol intramuscularly (IM). By the third day the patient started to wake up. He did not recall any of the events that had transpired. He was started on a diet which he was able to tolerate well. He was continued on his Serax 50 mg three times a day scheduled. He is also started on Keppra intravenous (IV) in the emergency room which was continued until day three when it was discontinued after briefly speaking with Dr. Ryan who recommended that since the patient has no history of epilepsy that he will likely not need to be on Keppra long-term but he recommended an assessment as an outpatient by neurology once the patient was discharged and cleared. The patient was moved out of the ICU. He was seen by physical therapy who saw him initially on Tuesday but due to some residual confusion he was not cleared initially; however by the second visit the patient was cleared by physical therapy. SOCIAL HISTORY: It was revealed that one daughter presented and visited. She stated that the patient has been living in a motel using his disability check to buy alcohol. He does not have enough money for food or medications since most of it he uses on his alcohol. He has not been following up with any primary care provider. He has not been taking any medications. [facility] was consulted and they recommended the patient follow up with [facility]. 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 Once the discharge plan was in place and the patient was given followup appointment and a primary care provider met with the patient again and son and emphasized the need to stop alcohol and that he will be given Serax and he should not combine Serax with his alcohol. The son had some concerns regarding the patient not being able to go to a food bank to get any food today and that he requested that the patient be discharged in the morning. DISCHARGE INSTRUCTIONS: Discharge instructions were put in the computer. Medications were sent to pharmacy. Discharge condition was stable.
[2016-12-14 08:00] LABS: ALBUMIN 3.3 GM/DL (3.2-5.2); ALBUMIN/GLOBULIN RATIO 0.97 (1.00-1.93); ALKALINE PHOSPHATASE 109 U/L (45-117); ALT/SGPT 88 U/L (12-78); ANION GAP 10 MEQ/L (8-16); AST/SGOT 68 U/L (15-37); BLOOD UREA NITROGEN 6 MG/DL (7-18); CALCIUM LEVEL 8.4 MG/DL (8.8-10.2); CARBON DIOXIDE LEVEL 25 MEQ/L (21-32); CHLORIDE LEVEL 100 MEQ/L (98-107); CREATININE FOR GFR 0.77 MG/DL (0.70-1.30); GLOMERULAR FILTRATION RATE > 60.0 (>49); GLUCOSE, FASTING 96 MG/DL (80-110); MAGNESIUM LEVEL 2.1 MG/DL (1.8-2.4); POTASSIUM SERUM 3.7 MEQ/L (3.5-5.1); SODIUM LEVEL 135 MEQ/L (136-145); TOTAL PROTEIN 6.7 GM/DL (6.4-8.2)
[2016-12-14] MEDS: MULTIVITAMINS/MINERALS THERAP 1 TAB PO SCH (09:31)
[2016-12-14] MEDS: ENOXAPARIN 40 MG/0.4 ML SYRINGE (J1650) SC SCH (09:31)
[2016-12-14] MEDS: THIAMINE 100 MG TAB PO SCH (09:31)
[2016-12-14] MEDS: FOLIC ACID 1 MG TAB PO SCH (09:31)
--- NOTE | 2016-12-14 15:27 | IPNPDOC ---
Text Note Date of Service The patient was seen on 12/14/16. NOTE Pt states he is feeling great. Denies any complaints. No signs of alcohol withdrawal. No acute changes overnight. Son states he prefers to have the patient's primary doctor refer him to a neurologist. Pt does not drive or handle heavy machinery. Please see d/c summary dictated by Dr. Phipps on 12/13/16. VS,Fishbone, I+O VS, Fishbone, I+O Laboratory Tests 12/14/16 06:58 Red Blood Count 4.36, Mean Corpuscular Volume 94.7, Mean Corpuscular Hemoglobin 33.7 H, Mean Corpuscular Hemoglobin Concent 35.6, Red Cell Distribution Width 12.5, Neutrophils (%) (Auto) 66.0, Lymphocytes (%) (Auto) 17.3 L, Monocytes (%) (Auto) 8.6 H, Eosinophils (%) (Auto) 3.6 H, Basophils (%) (Auto) 0.8, Neutrophils # (Auto) 5.0, Lymphocytes # (Auto) 1.6, Monocytes # (Auto) 0.6, Eosinophils # (Auto) 0.3, Basophils # (Auto) 0.1, Calcium Level 8.4 L, Aspartate Amino Transf (AST/SGOT) 68 H, Alanine Aminotransferase (ALT/SGPT) 88 H , Alkaline Phosphatase 109, Total Bilirubin 1.0, Total Protein 6.7, Albumin 3.3 Vital Signs Date Time Temp Pulse Resp B/P (MAP) Pulse Ox O2 Delivery O2 Flow Rate FiO2 12/14/16 09:50 98 Room Air 12/14/16 06:00 98.5 77 15 108/76 (87) 12/10/16 08:02 3.0 I&O- Last 24 Hours up to 6 AM 12/14/16 06:00 Intake Total 1260 ml Balance 1260 ml ALBERT OGLESBY MD December 14, 2016 15:27
== END 2016-12-14 11:50 | disposition home or self-care (01) | DRG 896 ==
LOC: EDBD 21:44 → M ED 22:42 → M ED INP 12-08 00:23 → M ICU 12-08 03:17 → M MS5PR 12-11 10:18
PROVIDERS: ADMIT Hospitalist; ATTEND Internal Medicine
DX: F10.239 Alcohol dependence with withdrawal, unspecified (principal); G93.41 Metabolic encephalopathy; E87.1 Hypo-osmolality and hyponatremia; E87.6 Hypokalemia; D69.6 Thrombocytopenia, unspecified; G40.409 Other generalized epilepsy and epileptic syndromes, not intractable, without status epilepticus

== ENCOUNTER 2017-02-05 11:10 | Observation (INO) | payer MEDICARE ==
[~2017-02-05] VITALS: Ht 162.6 cm; Wt 70.4 kg
[~2017-02-05 11:10] MED LIST: FOLI1TAB4 PO; OXAZ10CA3 PO; THIA100TA PO; VITMTA PO
[2017-02-05] MEDS ORDERED: LORazepam 2 MG/ML VIAL (J2060) IV STA (11:23)
[2017-02-05] MEDS ORDERED: NS 500 ML IV ONE (11:30)
[2017-02-05 12:01] LABS: BASO % 0.2 % (0.0-1.0); EOS % 0.3 % (0.0-3.0); LARGE UNSTAINED CELL # 0.1 K/mm3 (0.0-0.4); LARGE UNSTAINED CELL % 1.3 % (0.0-4.0); LYMPH # 0.8 K/mm3 (1.5-4.5); LYMPH % 9.2 % (24.0-44.0); MEAN CORPUSCULAR HEMOGLOBIN 33.8 pg (27.0-33.0); MEAN CORPUSCULAR HGB CONC 35.2 g/dl (32.0-36.5); MEAN CORPUSCULAR VOLUME 96.1 fl (80.0-96.0); MONO # 0.4 K/mm3 (0.0-0.8); MONO % 4.1 % (0.0-5.0); NEUTROPHILS # 7.3 K/mm3 (1.8-7.7); NEUTROPHILS % 84.8 % (36.0-66.0); PLATELET COUNT, AUTOMATED 199 k/mm3 (150-450); RED CELL DISTRIBUTION WIDTH 12.3 % (11.5-14.5); WHITE BLOOD COUNT 8.6 K/mm3 (4.0-10.0)
[2017-02-05 12:20] LABS: ALBUMIN 3.8 GM/DL (3.2-5.2); ALBUMIN/GLOBULIN RATIO 1.03 (1.00-1.93); ALKALINE PHOSPHATASE 99 U/L (45-117); ALT/SGPT 28 U/L (12-78); ANION GAP 16 MEQ/L (8-16); AST/SGOT 31 U/L (15-37); BILIRUBIN,DIRECT 0.2 MG/DL (0.0-0.2); BILIRUBIN,TOTAL 0.8 MG/DL (0.2-1.0); BLOOD UREA NITROGEN 4 MG/DL (7-18); CALCIUM LEVEL 8.7 MG/DL (8.8-10.2); CARBON DIOXIDE LEVEL 18 MEQ/L (21-32); CHLORIDE LEVEL 106 MEQ/L (98-107); CREATININE FOR GFR 0.95 MG/DL (0.70-1.30); GLOMERULAR FILTRATION RATE > 60.0 (>49); GLUCOSE, FASTING 145 MG/DL (80-110); POTASSIUM SERUM 3.6 MEQ/L (3.5-5.1); SODIUM LEVEL 140 MEQ/L (136-145); TOTAL PROTEIN 7.5 GM/DL (6.4-8.2)
[2017-02-05] MEDS: NS 1,000 ML IV SCH ×2 (12:27→20:10)
[2017-02-05] MEDS ORDERED: OXAZEPAM 15 MG CAP PO ONE (12:30)
[2017-02-05] MEDS ORDERED: THIAMINE 100 MG TAB PO ONE ×2 (12:30→15:00)
[2017-02-05] MEDS ORDERED: ADACEL/BOOSTRIX VACCINE (DIPHTH/PERTUSS/ACELL/TETANUS)0.5ML SYR (90715) IM ONE (12:30)
--- NOTE | 2017-02-05 13:05 | REP ---
Clinical: Trauma. Comparison: 12/07/2016. Findings: Age-related atrophy and microvascular ischemic changes are appreciated. The ventricles and sulci are symmetric. Staton-white differentiation is maintained. There is no evidence for acute intracranial hemorrhage, mass/mass effect, pathology or infarction. No extra-axial fluid collection. Calvarium is intact. Paranasal sinuses and mastoid air cells are clear. Impression: Age related atrophy and microvascular ischemic changes. No acute intracranial hemorrhage, infarction, or mass/mass effect. Signed by Ahsan Weinstein MD 02/05/2017 12:56 P
--- NOTE | 2017-02-05 13:09 | REP ---
Clinical: Trauma. Comparison: 10/23/2016 . Technique: Axial noncontrast images from the skull base to the thoracic inlet with coronal and sagittal re-formations Findings: Normal alignment and lordosis is maintained. Cervical vertebral bodies including transverse processes and spinous processes are intact and there is no evidence for acute fracture / compression injury or subluxation. Multilevel advanced degenerative disc osteophyte complexes include marginal and posterior osteophytes, endplate sclerosis, disc space narrowing and uncovertebral hypertrophy. Spinal canal appears patent. Posterior elements and spinous processes appear intact. Paravertebral soft tissues are normal. Impression: Advanced multilevel degenerative changes. No evidence for acute pathology or trauma/injury. Signed by Ahsan Weinstein MD 02/05/2017 01:00 P
--- NOTE | 2017-02-05 13:18 | REP ---
Clinical: Syncope . Comparison: 09/09/2007 Technique: PA and lateral. Findings: The mediastinum and cardiac silhouette are normal. The lung sage demonstrate chronic changes without acute consolidation, effusion, or pneumothorax. The skeletal structures are intact and normal. Impression: 1. No acute cardiopulmonary process. Signed by Ahsan Weinstein MD 02/05/2017 01:09 P
[2017-02-05 14:16] LABS: METHADONE URINE NEGATIVE (NEGATIVE)
[2017-02-05] MEDS ORDERED: LORazepam 2 MG TAB PO PRN (14:30)
[2017-02-05] MEDS ORDERED: ONDANSETRON 4 MG TAB (S0181) PO PRN (14:30)
--- NOTE | 2017-02-05 15:41 | HPEPDOC ---
General Date of Admission 02/05/2017 Other Providers Supposedly he was set up with [facility] after his last admission, but he never went Attending Physician: DAYSI SHAH MD Chief Complaint The patient is a 66-year-old male admitted with a reason for visit of Seizure. Source: Patient Exam Limitations: Clinical conditions History of Present Illness Mr. alexandra is a 66-year-old male who had a seizure at home. This was witnessed by his girlfriend, the EMS services were called and he was transported to the ED by ambulance. By the time he arrived he was back to his baseline status, he was awake, alert, and oriented. He had a similar episode back in November 2016 where he had a seizure from alcohol withdrawal. The patient is a terrible historian, and his girlfriend is no longer in the ED by the time I came to evaluate the patient. The patient tells me that he cannot remember anything about his seizure, or even remember having one. He states that he is feeling perfectly fine at this time, and asks if he can go home. Per the medical record from his last admission, it appears that he may be living in a motel and spending his disability money on alcohol, not even buying food, it is unclear as to whether his home living situation has improved or not. Apparently , he admitted to the nurse that he drank a sixpack of beer a day, he told me that he only drinks this every few days, I suspect that he is underestimating the actual amount of alcohol that he consumes. 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 Per medical record he apparently lives in a motel. Review of Symptoms Constitutional: Denies: Chills, Fever, Night Sweats Eyes: Denies: Pain, Vision change ENT: Denies: Head Aches, Ear Pain, Dysphagia Skin: Denies: Rash, Lesions, Breakdown Pulmonary: Denies: Dyspnea, Cough Cardiovascular: Denies: Chest Pain, Palpitations, Orthopnea, Paroxysmal Noc. Dyspnea, Lt Headedness Gastrointestinal: Denies: Nausea, Vomiting, Abdominal Pain, Diarrhea Genitourinary: Denies: Dysuria, Frequency, Incontinence, Retention Hematologic: Denies: Bruising, Bleeding Excessively Musculoskeletal: Denies: Neck Pain, Back Pain, Joint Pain, Muscle Pain, Spasms Neurological: Reports: Seizures (although he does not remember having a seizure , and he is unsure if he has ever had one in the past), Denies: Weakness, Numbness, Change in speech, Confusion Psych: Reports: Mood Normal, Denies: Depression, Memory Issues Physical Examination General Exam: Positive: Alert, No Acute Distress Eye Exam: Positive: PERRLA, Conjunctiva & lids normal, EOMI, Negative: Sclera icteric ENT Exam: Positive: Atraumatic, Mucous membr. moist/pink, Pharynx Normal Neck Exam: Positive: Supple, Negative: JVD, thyromegaly Chest Exam: Positive: Clear to auscultation, Normal air movement Heart Exam: Positive: Tachycardic, Regular Rhythm, Normal S1, Normal S2, Negative: Murmurs, Rubs Telemetry: Positive: Tachycardia Abdomen Exam: Positive: Normal bowel sounds, Soft, Negative: Tenderness, Hepatospenomegaly Extremity Exam: Positive: Normal pulses, Negative: Clubbing, Cyanosis, Edema Skin Exam: Positive: Nl turgor and temperature, Negative: Breakdown, Lesion Neuro Exam: Positive: Normal Speech, Strength at 5/5 X4 ext, Normal Tone, Cranial Nerves 3-12 NL Vital Signs Vital Signs Date Time Temp Pulse Resp B/P (MAP) Pulse Ox O2 Delivery O2 Flow Rate FiO2 02/05/17 14:10 99.0 92 18 93 02/05/17 13:17 153/99 (117) 02/05/17 11:33 Room Air Laboratory Data Labs 24H Laboratory Tests 2 02/05/17 11:35: White Blood Count 8.6, Red Blood Count 4.60, Hemoglobin 15.5, Hematocrit 44.2, Mean Corpuscular Volume 96.1H, Mean Corpuscular Hemoglobin 33.8H, Mean Corpuscular Hemoglobin Concent 35.2, Red Cell Distribution Width 12.3, Platelet Count 199, Neutrophils (%) (Auto) 84.8H, Lymphocytes (%) (Auto) 9.2L, Monocytes (%) (Auto) 4.1, Eosinophils (%) (Auto) 0.3, Basophils (%) (Auto) 0.2, Neutrophils # (Auto) 7.3, Lymphocytes # (Auto) 0.8L, Monocytes # (Auto) 0.4, Eosinophils # (Auto) 0.0, Basophils # (Auto) 0.0, Large Unclassified Cells % 1.3 , Large Unclassified Cells # 0.1, Anion Gap 16, Glomerular Filtration Rate > 60.0, Calcium Level 8.7L, Aspartate Amino Transf (AST/SGOT) 31, Alanine Aminotransferase (ALT/SGPT) 28, Alkaline Phosphatase 99, Total Bilirubin 0.8, Direct Bilirubin 0.2, Total Protein 7.5, Albumin 3.8, Albumin/Globulin Ratio 1.03, Lipase 100, Ethyl Alcohol Level < 0.003 02/05/17 13:37: Urine Appearance CLEAR, Urine Color STRAW, Urine pH 6.0, Urine Specific [place] 1.011, Urine Protein NEGATIVE, Urine Glucose (UA) NEGATIVE, Urine Ketones 1+H, Urine Urobilinogen 0.2, Urine Bilirubin NEGATIVE, Urine Leukocyte Esterase NEGATIVE, Urine Blood 1+H, Urine Nitrite NEGATIVE, Urine WBC (Auto) 1, Urine RBC (Auto) 1, Urine Hyaline Casts (Auto) 1, Urine Bacteria (Auto) NEGATIVE, Urine Squamous Epithelial Cells 0, Urine Mucus (Auto) SMALL, Urine Sperm (Auto) , Urine Amphetamines Screen NEGATIVE, Urine Benzodiazepines Screen NEGATIVE, Urine Opiates Screen NEGATIVE, Urine Methadone Screen NEGATIVE, Urine Barbiturates Screen NEGATIVE, Urine Phencyclidine Screen NEGATIVE, Urine Cocaine Metabolite Screen NEGATIVE, Urine Cannabinoids Screen NEGATIVE CBC/BMP Laboratory Tests 02/05/17 11:35 Red Blood Count 4.60, Mean Corpuscular Volume 96.1 H, Mean Corpuscular Hemoglobin 33.8 H, Mean Corpuscular Hemoglobin Concent 35.2, Red Cell Distribution Width 12.3, Neutrophils (%) (Auto) 84.8 H, Lymphocytes (%) (Auto) 9.2 L, Monocytes (%) (Auto) 4.1, Eosinophils (%) (Auto) 0.3, Basophils (%) (Auto ) 0.2, Neutrophils # (Auto) 7.3, Lymphocytes # (Auto) 0.8 L, Monocytes # (Auto) 0.4, Eosinophils # (Auto) 0.0, Basophils # (Auto) 0.0 Microbiology Microbiology 02/05/17 Urine Culture, Received Pending Problems (1) Alcohol dependence with withdrawal Status: Acute (2) Seizure Status: Acute (3) Hypertension Status: Chronic (4) Alcohol abuse Status: Chronic Plan / VTE VTE Prophylaxis Ordered?: Yes (Lovenox) Plan Plan An EEG was performed during his last hospitalization which was found to be within normal limits, no focal, lateralizing, or epileptiform abnormalities were seen. Neurology was also consulted during his last hospitalization and it was felt that his seizures were due to EtOH withdrawal, given the patient's history, we have no reason to suspect otherwise at this time either. We will initiate CIWA protocol with as needed lorazepam, we will also put him on scheduled Serax, thiamine, folate, multivitamin, Protonix, and as needed Zofran. We'll continue him with fall risk precautions as well as seizure precautions. Just in case we'll check cardiac enzymes 3, and daily labs. It is anticipated that his hypertension will improve with the administration of benzodiazepines, however if it does not this may warrant treatment if his pressures go any higher. Both physical therapy and PFS have been consulted, their input regarding this gentleman is greatly appreciated. I have seen and examined the patient, and discussed the case with the resident. I agree with the following assessment mentioned above. SALONI MCCOY DO Feb 05, 2017 15:22 DAYSI SHAH MD Feb 06, 2017 12:57
[2017-02-05 16:55] VITALS: BP 175/113
[2017-02-05 16:58] VITALS: BP 185/116
[2017-02-05] MEDS: PANTOPRAZOLE 40MG TAB (PROTONIX) PO SCH (17:06)
[2017-02-05] MEDS: OXAZEPAM 10 MG CAP PO SCH ×2 (17:07→23:37)
[2017-02-05] MEDS: FOLIC ACID 1 MG TAB PO SCH (17:07)
[2017-02-05] MEDS: ENOXAPARIN 40 MG/0.4 ML SYRINGE (J1650) SC SCH (17:07)
[2017-02-05] MEDS: MULTIVITAMINS/MINERALS THERAP 1 TAB PO SCH (17:07)
[2017-02-05 18:40] VITALS: BP 143/102
[2017-02-05 20:00] VITALS: BP 143/102; PULSE 106
[2017-02-05 20:43] VITALS: BP 141/90
[2017-02-05] MEDS ORDERED: THIAMINE 100 MG TAB PO SCH (21:00)
--- NOTE | 2017-02-05 21:26 | ECGEPIP ---
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
[2017-02-05 23:29] VITALS: BP 129/87
[2017-02-06] VITALS (8 sets, daily range): BP systolic 110–144; BP diastolic 70–97; PULSE 71–107
[2017-02-06 05:14] LABS: MEAN CORPUSCULAR HEMOGLOBIN 34.2 pg (27.0-33.0); MEAN CORPUSCULAR HGB CONC 36.5 g/dl (32.0-36.5); MEAN CORPUSCULAR VOLUME 93.7 fl (80.0-96.0); RED CELL DISTRIBUTION WIDTH 12.5 % (11.5-14.5); WHITE BLOOD COUNT 10.8 K/mm3 (4.0-10.0)
[2017-02-06 05:39] LABS: ANION GAP 8 MEQ/L (8-16); BLOOD UREA NITROGEN 4 MG/DL (7-18); CALCIUM LEVEL 8.7 MG/DL (8.8-10.2); CARBON DIOXIDE LEVEL 26 MEQ/L (21-32); CHLORIDE LEVEL 106 MEQ/L (98-107); CREATININE FOR GFR 0.73 MG/DL (0.70-1.30); GLOMERULAR FILTRATION RATE > 60.0 (>49); GLUCOSE, FASTING 93 MG/DL (80-110); POTASSIUM SERUM 3.2 MEQ/L (3.5-5.1); SODIUM LEVEL 140 MEQ/L (136-145)
[2017-02-06] MEDS: OXAZEPAM 10 MG CAP PO SCH ×3 (05:52→20:55)
[2017-02-06] MEDS: FOLIC ACID 1 MG TAB PO SCH (09:28)
[2017-02-06] MEDS: MULTIVITAMINS/MINERALS THERAP 1 TAB PO SCH (09:28)
[2017-02-06] MEDS: PANTOPRAZOLE 40MG TAB (PROTONIX) PO SCH (09:28)
[2017-02-06] MEDS: THIAMINE 100 MG TAB PO SCH (09:29)
[2017-02-06] MEDS: POTASSIUM CHLORIDE 10 MEQ SR TABLET PO SCH (09:29)
[2017-02-06] MEDS: ENOXAPARIN 40 MG/0.4 ML SYRINGE (J1650) SC SCH (09:29)
--- NOTE | 2017-02-06 10:40 | IPNPDOC ---
Subjective Date Seen The patient was seen on 02/06/17. Subjective Chief Complaint/HPI The patient is a 66-year-old male admitted with a reason for visit of Alcohol Abuse,Seizure. Events since last encounter No complaints this morning. Son at bedside. Pateint said his last beer was about 2 weeks ago . He stopped drinking as he was feeling unwell his legs were bothering him , his belly was bothering him however son thinks its because he ran out of his money . He has been living in the [facility] in [place] for the past 3 months. He gets his disability check on the third of every month. denied any fever or chills, denied any chest pain or shortness of breath , denied any nausea or vomiting or diarrhea, denied any abdominal pain . no anziety or tremulousness. Objective Physical Examination General Exam: Positive: Alert, Cooperative, No Acute Distress Eye Exam: Positive: PERRLA, Conjunctiva & lids normal, EOMI, Negative: Sclera icteric ENT Exam: Positive: Atraumatic, Mucous membr. moist/pink, Pharynx Normal Neck Exam: Positive: Supple, Negative: JVD, thyromegaly Chest Exam: Positive: Clear to auscultation, Normal air movement Heart Exam: Positive: Rate Normal, Regular Rhythm, Normal S1, Normal S2, Negative: Murmurs, Rubs Telemetry: Positive: Tachycardia Abdomen Exam: Positive: Normal bowel sounds, Soft, Negative: Tenderness, Hepatospenomegaly Extremity Exam: Positive: Normal pulses, Negative: Clubbing, Cyanosis, Edema Skin Exam: Positive: Nl turgor and temperature, Negative: Breakdown, Lesion Neuro Exam: Positive: Normal Speech, Strength at 5/5 X4 ext, Normal Tone, Cranial Nerves 3-12 NL Assessment /Plan Problems (1) Alcohol dependence with withdrawal Status: Acute Problem Text: continue folate, thiamine, serax. (2) Seizure Status: Acute Problem Text: alcohol withdrawal seizure will continue with serax and ativan as per protocol (3) Hypertension Status: Chronic (4) Alcohol abuse Status: Chronic (5) Thrombocytopenia Status: Chronic (6) Traumatic brain injury Status: Chronic Problem Text: in the remote past after a fall in intoxicated state. Plan/VTE VTE Prophylaxis Ordered?: Yes (Lovenox) VS, I&O, 24H, Fishbone Vital Signs/I&O Vital Signs Date Time Temp Pulse Resp B/P (MAP) Pulse Ox O2 Delivery O2 Flow Rate FiO2 02/06/17 08:00 98.3 86 18 130/84 (99) 98 Room Air I&O- Last 24 Hours up to 6 AM 02/06/17 05:59 Intake Total 1070 ml Output Total 3000 ml Balance -1930 ml Laboratory Data 24H LABS Laboratory Tests 2 02/05/17 11:35: White Blood Count 8.6, Red Blood Count 4.60, Hemoglobin 15.5, Hematocrit 44.2, Mean Corpuscular Volume 96.1H, Mean Corpuscular Hemoglobin 33.8H, Mean Corpuscular Hemoglobin Concent 35.2, Red Cell Distribution Width 12.3, Platelet Count 199, Neutrophils (%) (Auto) 84.8H, Lymphocytes (%) (Auto) 9.2L, Monocytes (%) (Auto) 4.1, Eosinophils (%) (Auto) 0.3, Basophils (%) (Auto) 0.2, Neutrophils # (Auto) 7.3, Lymphocytes # (Auto) 0.8L, Monocytes # (Auto) 0.4, Eosinophils # (Auto) 0.0, Basophils # (Auto) 0.0, Large Unclassified Cells % 1.3 , Large Unclassified Cells # 0.1, Anion Gap 16, Glomerular Filtration Rate > 60.0, Calcium Level 8.7L, Aspartate Amino Transf (AST/SGOT) 31, Alanine Aminotransferase (ALT/SGPT) 28, Alkaline Phosphatase 99, Total Bilirubin 0.8, Direct Bilirubin 0.2, Total Protein 7.5, Albumin 3.8, Albumin/Globulin Ratio 1.03, Lipase 100, Ethyl Alcohol Level < 0.003 02/05/17 13:37: Urine Appearance CLEAR, Urine Color STRAW, Urine pH 6.0, Urine Specific [place] 1.011, Urine Protein NEGATIVE, Urine Glucose (UA) NEGATIVE, Urine Ketones 1+H, Urine Urobilinogen 0.2, Urine Bilirubin NEGATIVE, Urine Leukocyte Esterase NEGATIVE, Urine Blood 1+H, Urine Nitrite NEGATIVE, Urine WBC (Auto) 1, Urine RBC (Auto) 1, Urine Hyaline Casts (Auto) 1, Urine Bacteria (Auto) NEGATIVE, Urine Squamous Epithelial Cells 0, Urine Mucus (Auto) SMALL, Urine Sperm (Auto) , Urine Amphetamines Screen NEGATIVE, Urine Benzodiazepines Screen NEGATIVE, Urine Opiates Screen NEGATIVE, Urine Methadone Screen NEGATIVE, Urine Barbiturates Screen NEGATIVE, Urine Phencyclidine Screen NEGATIVE, Urine Cocaine Metabolite Screen NEGATIVE, Urine Cannabinoids Screen NEGATIVE 02/05/17 20:42: Total Creatine Kinase 337H, Creatine Kinase MB 2.4, Creatine Kinase MB Relative Index 0.71 02/06/17 04:03: Anion Gap 8, Glomerular Filtration Rate > 60.0, Calcium Level 8.7L, Total Creatine Kinase 288, Creatine Kinase MB 1.6, Creatine Kinase MB Relative Index 0.55, Blood Urea Nitrogen 4L, Creatinine 0.73, Sodium Level 140, Potassium Level 3.2L, Chloride Level 106, Carbon Dioxide Level 26 CBC/BMP Laboratory Tests 02/05/17 11:35 Red Blood Count 4.60, Mean Corpuscular Volume 96.1 H, Mean Corpuscular Hemoglobin 33.8 H, Mean Corpuscular Hemoglobin Concent 35.2, Red Cell Distribution Width 12.3, Neutrophils (%) (Auto) 84.8 H, Lymphocytes (%) (Auto) 9.2 L, Monocytes (%) (Auto) 4.1, Eosinophils (%) (Auto) 0.3, Basophils (%) (Auto ) 0.2, Neutrophils # (Auto) 7.3, Lymphocytes # (Auto) 0.8 L, Monocytes # (Auto) 0.4, Eosinophils # (Auto) 0.0, Basophils # (Auto) 0.0 02/06/17 04:03 Red Blood Count 4.46, Mean Corpuscular Volume 93.7, Mean Corpuscular Hemoglobin 34.2 H, Mean Corpuscular Hemoglobin Concent 36.5, Red Cell Distribution Width 12.5, Calcium Level 8.7 L, Total Creatine Kinase 288 Microbiology Microbiology 02/05/17 Urine Culture - Final, Complete RAYNA BREWER MD Feb 06, 2017 10:40
[2017-02-07] MEDS ORDERED: SLF 3 ML SYR IV PRN (02:00)
[2017-02-07 05:12] VITALS: BP 126/81
[2017-02-07 05:15] LABS: MEAN CORPUSCULAR HEMOGLOBIN 33.9 pg (27.0-33.0); MEAN CORPUSCULAR HGB CONC 35.5 g/dl (32.0-36.5); MEAN CORPUSCULAR VOLUME 95.4 fl (80.0-96.0); RED CELL DISTRIBUTION WIDTH 12.6 % (11.5-14.5); WHITE BLOOD COUNT 8.9 K/mm3 (4.0-10.0)
[2017-02-07] MEDS: OXAZEPAM 10 MG CAP PO SCH (05:29)
[2017-02-07 05:32] LABS: ANION GAP 8 MEQ/L (8-16); BLOOD UREA NITROGEN 5 MG/DL (7-18); CALCIUM LEVEL 8.8 MG/DL (8.8-10.2); CARBON DIOXIDE LEVEL 27 MEQ/L (21-32); CHLORIDE LEVEL 106 MEQ/L (98-107); CREATININE FOR GFR 0.81 MG/DL (0.70-1.30); GLOMERULAR FILTRATION RATE > 60.0 (>49); GLUCOSE, FASTING 107 MG/DL (80-110); POTASSIUM SERUM 3.2 MEQ/L (3.5-5.1); SODIUM LEVEL 141 MEQ/L (136-145)
[2017-02-07] MEDS ORDERED: SLF 3 ML SYR IV SCH (06:00)
[2017-02-07] MEDS ORDERED: THIA100TA PO (06:54)
[2017-02-07] MEDS ORDERED: FOLI1TAB4 PO (06:54)
[2017-02-07] MEDS ORDERED: OXAZ10CA3 PO (06:54)
[2017-02-07 07:35] VITALS: BP 147/88
[2017-02-07] MEDS ORDERED: OXAZEPAM 10 MG CAP PO SCH (09:00)
[2017-02-07] MEDS: ENOXAPARIN 40 MG/0.4 ML SYRINGE (J1650) SC SCH (09:00)
[2017-02-07] MEDS: FOLIC ACID 1 MG TAB PO SCH (09:46)
[2017-02-07] MEDS: PANTOPRAZOLE 40MG TAB (PROTONIX) PO SCH (09:46)
[2017-02-07] MEDS: MULTIVITAMINS/MINERALS THERAP 1 TAB PO SCH (09:46)
[2017-02-07] MEDS: POTASSIUM CHLORIDE 10 MEQ SR TABLET PO SCH (09:46)
[2017-02-07] MEDS: THIAMINE 100 MG TAB PO SCH (09:47)
--- NOTE | 2017-02-10 10:22 | DSES ---
DATE OF ADMISSION: 02/05/2017 DATE OF DISCHARGE: 02/07/2017 PRIMARY CARE PROVIDER: Dr. Matthew. DISCHARGE DIAGNOSES: 1. Alcohol withdrawal seizure. 2. Alcohol dependence and withdrawal. 3. Hypertension. 4. Thrombocytopenia. 5. Remote history of traumatic brain injury. DISCHARGE MEDICATIONS: - thiamine 100 mg by mouth daily - folic acid 1 mg by mouth daily - oxazepam tapering course HOSPITAL COURSE: This is a 66-year-old male with a history of traumatic brain injury in the remote past, alcohol abuse who presented with documented with witnessed seizure. The patient had stopped drinking 2 weeks ago because he had run out of money. The patient was brought to the emergency room diagnosed with alcohol withdrawal seizures and was admitted. The patient was observed in the hospital for 48 hours without any further episodes of seizure. He was put on Serax tapering course for alcohol withdrawal. The patient did well in the hospital. There were no other signs of withdrawal. He is a very poor historian and may have some underlying cognition problems from history of traumatic brain injury and chronic alcohol abuse. On the day of discharge, the patient did not have any complaints. His vitals were stable and he was functionally at his baseline. PHYSICAL EXAMINATION: VITAL SIGNS: Temperature 98, pulse 110, respiratory rate 20, blood pressure 147/88, pulse oximetry 98% in room air. GENERAL: Patient awake, alert, oriented times three. He is sitting up in bed in no acute distress. HEENT: Normocephalic, atraumatic. Moist mucous membranes, anicteric eyes. CHEST: Clear to auscultation. CARDIOVASCULAR: S1, S2, regular. No rub, murmur, or gallop. ABDOMEN: Soft, nontender. Bowel sounds present. EXTREMITIES: No edema. LABORATORY DATA: WBC 8.9, hemoglobin 14.2, platelet 178. Sodium 141, potassium 3.2, replaced, chloride 106, bicarbonate 27, BUN 5, creatinine 0.8, glucose 107, calcium 8.8. U-tox was negative. Urine culture was negative. CT head: Age-related atrophy and microvascular ischemic changes. No acute intracranial hemorrhage, infarction or mass. CT of the cervical spine: Advanced multilevel degenerative changes. No evidence of acute pathology or trauma or injury. Chest x-ray did not show any acute cardiopulmonary process. DISPOSITION: The patient is discharged home in stable condition. DISCHARGE INSTRUCTIONS: The patient to follow with primary care provider in 1 week. Regular diet. Activity as tolerated. The patient strongly advised to refrain from alcohol abuse.
== END 2017-02-07 11:31 | disposition home or self-care (01) ==
LOC: EDBD 11:10 → M ED 11:10 → M ED INP 16:10 → M PCU 16:49
PROVIDERS: ADMIT Internal Medicine; ATTEND Internal Medicine Nephrology
DX: G40.89 Other seizures (principal); F10.239 Alcohol dependence with withdrawal, unspecified; I10 Essential (primary) hypertension; D69.6 Thrombocytopenia, unspecified; Z87.820 Personal history of traumatic brain injury; Z79.899 Other long term (current) drug therapy; Z23 Encounter for immunization
CPT/HCPCS: 36415; 70450; 71020; 72125; 80048; 80076; 80307; 81001; 82550; 82553; 83690; 85025; 85027; 87086; 90471; 90715; 93005; 93041; 94760; 96361; 96372; 96374; 97162; 99285; G0378; G0480; J1650; J2060

== ENCOUNTER → 2017-02-10 | Outpatient (REF) | payer MEDICARE ==
[2017-02-10 18:45] LABS: ALBUMIN 3.7 GM/DL (3.2-5.2); ALKALINE PHOSPHATASE 97 U/L (45-117); ALT/SGPT 37 U/L (12-78); ANION GAP 6 MEQ/L (8-16); AST/SGOT 29 U/L (15-37); BILIRUBIN,TOTAL 0.7 MG/DL (0.2-1.0); BLOOD UREA NITROGEN 7 MG/DL (7-18); CALCIUM LEVEL 8.9 MG/DL (8.8-10.2); CARBON DIOXIDE LEVEL 26 MEQ/L (21-32); CHLORIDE LEVEL 103 MEQ/L (98-107); CREATININE FOR GFR 0.66 MG/DL (0.70-1.30); GLOMERULAR FILTRATION RATE > 60.0 (>49); GLUCOSE, FASTING 73 MG/DL (80-110); POTASSIUM SERUM 5.1 MEQ/L (3.5-5.1); SODIUM LEVEL 135 MEQ/L (136-145); TOTAL PROTEIN 7.4 GM/DL (6.4-8.2)
== END ==
LOC: M LAB REF 16:57
PROVIDERS: ATTEND Family Medicine Addiction Medicine
DX: E87.6 Hypokalemia (principal)

== ENCOUNTER 2017-12-27 09:41 | Observation (INO) | payer MEDICARE ==
[2017-12-27] MEDS: LORazepam 2 MG/ML VIAL (J2060) IV ×2 (10:12→14:29)
[2017-12-27] MEDS: NS 1,000 ML IV (10:12)
[2017-12-27 10:20] LABS: BASO # 0.1 10^3/uL (0.0-0.2); BASO % 0.8 % (0.0-1.0); EOS # 0.1 10^3/uL (0.0-0.50); EOS % 1.1 % (0.0-3.0); HEMOGLOBIN 15.1 g/dl (13.5-17.5); LYMPH # 3.1 10^3/uL (1.5-4.5); MEAN CORPUSCULAR HGB CONC 35.1 g/dl (32.0-36.5); MEAN CORPUSCULAR VOLUME 91.1 fl (80.0-96.0); MONO # 0.9 10^3/uL (0.0-0.8); MONO % 7.3 % (0.0-5.0); NEUTROPHILS # 7.4 10^3/uL (1.8-7.7); NEUTROPHILS % 62.8 % (36.0-66.0); PLATELET COUNT, AUTOMATED 299 10^3/uL (150-450); RED BLOOD COUNT 4.72 10^6/uL (4.30-6.10); RED CELL DISTRIBUTION WIDTH 13.7 % (11.5-14.5); WHITE BLOOD COUNT 11.7 10^3/uL (4.0-10.0)
[2017-12-27 10:40] LABS: VENOUS BASE EXCESS -8.2 (-2.0-2.0); VENOUS HCO3 16.5 MEQ/L (23.0-27.0); VENOUS O2 SATURATION 92.8 % (60.0-80.0); VENOUS PARTIAL PRESSURE CO2 32.1 mmHg (38.0-50.0); VENOUS PARTIAL PRESSURE O2 69.8 mmHg (30.0-50.0); VENOUS PH 7.328 UNITS (7.330-7.430); VENOUS STANDARD HCO3 17.9 MEQ/L; VENOUS TOTAL CO2 17.5 MEQ/L (24.0-28.0)
[2017-12-27 10:46] LABS: OSMOLALITY SERUM 292 MOSM/KG (280-301)
[2017-12-27 11:00] LABS: AMMONIA 42 uMOL/L (<32)
[2017-12-27 11:06] LABS: ALBUMIN 3.8 GM/DL (3.2-5.2); ALBUMIN/GLOBULIN RATIO 0.97 (1.00-1.93); ALKALINE PHOSPHATASE 103 U/L (45-117); ALT/SGPT 28 U/L (12-78); ANION GAP 15 MEQ/L (8-16); AST/SGOT 26 U/L (7-37); BILIRUBIN,DIRECT < 0.1 MG/DL (0.0-0.2); BILIRUBIN,TOTAL 0.3 MG/DL (0.2-1.0); BLOOD UREA NITROGEN 7 MG/DL (7-18); CALCIUM LEVEL 8.3 MG/DL (8.8-10.2); CARBON DIOXIDE LEVEL 17 MEQ/L (21-32); CHLORIDE LEVEL 108 MEQ/L (98-107); CPK CREATINE PHOSPHOKINASE 183 U/L (39-308); CREATININE FOR GFR 1.05 MG/DL (0.70-1.30); ETHYL ALCOHOL (ETHANOL) 0.003 % (0.000-0.010); GLOMERULAR FILTRATION RATE > 60.0 (>49); GLUCOSE, FASTING 152 MG/DL (70-100); POTASSIUM SERUM 3.8 MEQ/L (3.5-5.1); SALICYLATE LEVEL 1.8 MG/DL (5.0-30.0); SODIUM LEVEL 140 MEQ/L (136-145); TOTAL PROTEIN 7.7 GM/DL (6.4-8.2); TROPONIN I < 0.02 NG/ML (< 0.10)
[2017-12-27 11:12] LABS: CK-MB VALUE MASS 1.4 NG/ML (<3.6); MB/CK RELATIVE INDEX 0.76 (< OR =4)
[2017-12-27 11:17] LABS: ACETAMINOPHEN LEVEL < 2.0 UG/ML (10.0-30.0)
[2017-12-27] MEDS: THIAMINE HCL 200 MG/2 ML VIAL (J3411) IM (12:22)
[2017-12-27] MEDS ORDERED: LORazepam 2 MG/ML VIAL (J2060) IV (14:15)
[2017-12-27] MEDS ORDERED: ONDANSETRON 4MG/2ML VIAL (J2405) IV (14:15)
[2017-12-27] MEDS: OXAZEPAM 15 MG CAP PO (14:29)
[2017-12-27 14:50] LABS: PROLACTIN 23.7 NG/ML (2.1-17.7)
[2017-12-27] MEDS: MULTIVITAMIN -ADULT INJECTION 10 ML, THIAMINE INJection 100 MG, FOLIC ACID 1 MG in NS 1... IV (16:28)
[2017-12-27 16:48] LABS: AMPHETAMINES LEVEL URINE NEGATIVE (NEGATIVE); BARBITURATES URINE NEGATIVE (NEGATIVE); BENZODIAZEPINES URINE NEGATIVE (NEGATIVE); CANNABINOIDS URINE NEGATIVE (NEGATIVE); COCAINE METABOLITE URINE NEGATIVE (NEGATIVE); METHADONE URINE NEGATIVE (NEGATIVE); OPIATES URINE NEGATIVE (NEGATIVE); PHENCYCLIDINE URINE NEGATIVE (NEGATIVE)
[2017-12-27] MEDS: HEPARIN SOD (PORCINE) 5000 UNITS/ML VIAL SC ×2 (19:42→21:48)
[2017-12-27] MEDS: OXAZEPAM 10 MG CAP PO (20:35)
[2017-12-28] MEDS: OXAZEPAM 10 MG CAP PO ×3 (00:10→11:30)
[2017-12-28] MEDS: MULTIVITAMIN -ADULT INJECTION 10 ML, THIAMINE INJection 100 MG, FOLIC ACID 1 MG in NS 1... IV (00:10)
[2017-12-28] MEDS: HEPARIN SOD (PORCINE) 5000 UNITS/ML VIAL SC (06:07)
[2017-12-28 06:40] LABS: BASO % 0.6 % (0.0-1.0); EOS # 0.1 10^3/uL (0.0-0.50); EOS % 1.4 % (0.0-3.0); HEMATOCRIT 38.4 % (42.0-52.0); HEMOGLOBIN 13.4 g/dl (13.5-17.5); IMMATURE GRANULOCYTE % 0.4 % (0-3.0); LYMPH # 1.3 10^3/uL (1.5-4.5); LYMPH % 18.5 % (24.0-44.0); MEAN CORPUSCULAR HEMOGLOBIN 31.8 pg (27.0-33.0); MEAN CORPUSCULAR HGB CONC 34.9 g/dl (32.0-36.5); MEAN CORPUSCULAR VOLUME 91.2 fl (80.0-96.0); MONO # 0.6 10^3/uL (0.0-0.8); MONO % 7.6 % (0.0-5.0); NEUTROPHILS # 5.2 10^3/uL (1.8-7.7); NEUTROPHILS % 71.5 % (36.0-66.0); PLATELET COUNT, AUTOMATED 209 10^3/uL (150-450); RED BLOOD COUNT 4.21 10^6/uL (4.30-6.10); RED CELL DISTRIBUTION WIDTH 13.5 % (11.5-14.5); WHITE BLOOD COUNT 7.2 10^3/uL (4.0-10.0)
[2017-12-28 06:50] LABS: ANION GAP 6 MEQ/L (8-16); BLOOD UREA NITROGEN 5 MG/DL (7-18); CALCIUM LEVEL 7.8 MG/DL (8.8-10.2); CARBON DIOXIDE LEVEL 24 MEQ/L (21-32); CHLORIDE LEVEL 111 MEQ/L (98-107); CREATININE FOR GFR 0.74 MG/DL (0.70-1.30); GLOMERULAR FILTRATION RATE > 60.0 (>49); GLUCOSE, FASTING 88 MG/DL (70-100); POTASSIUM SERUM 3.3 MEQ/L (3.5-5.1); SODIUM LEVEL 141 MEQ/L (136-145)
[2017-12-28] MEDS: POTASSIUM CHLORIDE 10 MEQ SR TABLET PO (10:09)
== END 2017-12-28 14:22 | disposition left against medical advice (07) ==
LOC: M ED 09:41 → M ED INP 14:09 → M PCU 21:12
DX: G40.89 Other seizures (principal); F10.239 Alcohol dependence with withdrawal, unspecified; R41.82 Altered mental status, unspecified; E87.2 Acidosis; K70.40 Alcoholic hepatic failure without coma; D72.829 Elevated white blood cell count, unspecified; I51.7 Cardiomegaly; I67.82 Cerebral ischemia; G31.89 Other specified degenerative diseases of nervous system; D64.9 Anemia, unspecified
CPT/HCPCS: J2060

== ENCOUNTER 2018-03-04 17:04 | Emergency (ER) | payer MEDICARE ==
[2018-03-04 17:20] LABS: BEDSIDE GLUCOSE 94 MG/DL (80-115)
[2018-03-04] MEDS: NS 1,000 ML IV (17:30)
[2018-03-04] MEDS: METOCLOPRAMIDE INJ 10MG/2ML VIAL (J2765) IV (18:08)
[2018-03-04 18:16] LABS: BASO % 0.5 % (0.0-1.0); EOS # 0.3 10^3/uL (0.0-0.50); HEMATOCRIT 45.1 % (42.0-52.0); HEMOGLOBIN 15.8 g/dl (13.5-17.5); IMMATURE GRANULOCYTE % 0.4 % (0-3.0); LYMPH # 2.9 10^3/uL (1.5-4.5); MEAN CORPUSCULAR HEMOGLOBIN 32.4 pg (27.0-33.0); MEAN CORPUSCULAR VOLUME 92.6 fl (80.0-96.0); MONO # 0.3 10^3/uL (0.0-0.8); NEUTROPHILS # 3.9 10^3/uL (1.8-7.7); NEUTROPHILS % 52.1 % (36.0-66.0); PLATELET COUNT, AUTOMATED 277 10^3/uL (150-450); RED BLOOD COUNT 4.87 10^6/uL (4.30-6.10); RED CELL DISTRIBUTION WIDTH 12.7 % (11.5-14.5); WHITE BLOOD COUNT 7.5 10^3/uL (4.0-10.0)
[2018-03-04 18:21] LABS: AMMONIA 40 uMOL/L (<32)
[2018-03-04 18:22] LABS: LACTIC ACID SEPSIS PROTOCOL 1.5 MMOL/L (0.4-2.0)
[2018-03-04 18:23] LABS: ALBUMIN 3.9 GM/DL (3.2-5.2); ALBUMIN/GLOBULIN RATIO 0.93 (1.00-1.93); ALKALINE PHOSPHATASE 130 U/L (45-117); ALT/SGPT 40 U/L (12-78); ANION GAP 12 MEQ/L (8-16); AST/SGOT 30 U/L (7-37); BILIRUBIN,DIRECT < 0.1 MG/DL (0.0-0.2); BILIRUBIN,TOTAL 0.3 MG/DL (0.2-1.0); BLOOD UREA NITROGEN 5 MG/DL (7-18); CALCIUM LEVEL 8.3 MG/DL (8.8-10.2); CARBON DIOXIDE LEVEL 21 MEQ/L (21-32); CHLORIDE LEVEL 112 MEQ/L (98-107); CK-MB VALUE MASS 1.6 NG/ML (<3.6); CPK CREATINE PHOSPHOKINASE 129 U/L (39-308); CREATININE FOR GFR 0.79 MG/DL (0.70-1.30); GLOMERULAR FILTRATION RATE > 60.0 (>49); GLUCOSE, FASTING 90 MG/DL (70-100); MB/CK RELATIVE INDEX 1.24 (< OR =4); POTASSIUM SERUM 4.2 MEQ/L (3.5-5.1); SALICYLATE LEVEL 2.2 MG/DL (5.0-30.0); SODIUM LEVEL 145 MEQ/L (136-145); TOTAL PROTEIN 8.1 GM/DL (6.4-8.2); TROPONIN I < 0.02 NG/ML (< 0.10)
[2018-03-04 18:27] LABS: ACETAMINOPHEN LEVEL < 2.0 UG/ML (10.0-30.0)
== END 2018-03-04 21:17 | disposition home or self-care (01) ==
LOC: M ED 17:04
DX: F10.129 Alcohol abuse with intoxication, unspecified (principal); Y90.1 Blood alcohol level of 20-39 mg/100 ml; F17.210 Nicotine dependence, cigarettes, uncomplicated

== ENCOUNTER 2018-03-06 14:43 | Inpatient (IN) | payer MEDICARE ==
[2018-03-06 15:57] LABS: BASO # 0.1 10^3/uL (0.0-0.2); BASO % 0.6 % (0.0-1.0); EOS # 0.1 10^3/uL (0.0-0.50); HEMATOCRIT 42.5 % (42.0-52.0); HEMOGLOBIN 15.2 g/dl (13.5-17.5); IMMATURE GRANULOCYTE % 1.6 % (0-3.0); LYMPH # 1.6 10^3/uL (1.5-4.5); LYMPH % 14.9 % (24.0-44.0); MEAN CORPUSCULAR HEMOGLOBIN 32.8 pg (27.0-33.0); MEAN CORPUSCULAR HGB CONC 35.8 g/dl (32.0-36.5); MEAN CORPUSCULAR VOLUME 91.6 fl (80.0-96.0); MONO # 0.7 10^3/uL (0.0-0.8); MONO % 6.3 % (0.0-5.0); NEUTROPHILS # 8.1 10^3/uL (1.8-7.7); NEUTROPHILS % 75.6 % (36.0-66.0); PLATELET COUNT, AUTOMATED 251 10^3/uL (150-450); RED BLOOD COUNT 4.64 10^6/uL (4.30-6.10); RED CELL DISTRIBUTION WIDTH 12.7 % (11.5-14.5); WHITE BLOOD COUNT 10.8 10^3/uL (4.0-10.0)
[2018-03-06 16:06] LABS: ALBUMIN 3.9 GM/DL (3.2-5.2); ALBUMIN/GLOBULIN RATIO 0.98 (1.00-1.93); ALKALINE PHOSPHATASE 149 U/L (45-117); ALT/SGPT 39 U/L (12-78); ANION GAP 17 MEQ/L (8-16); AST/SGOT 36 U/L (7-37); BILIRUBIN,DIRECT 0.1 MG/DL (0.0-0.2); BILIRUBIN,TOTAL 0.4 MG/DL (0.2-1.0); BLOOD UREA NITROGEN 5 MG/DL (7-18); CALCIUM LEVEL 8.7 MG/DL (8.8-10.2); CARBON DIOXIDE LEVEL 18 MEQ/L (21-32); CHLORIDE LEVEL 103 MEQ/L (98-107); CPK CREATINE PHOSPHOKINASE 252 U/L (39-308); CREATININE FOR GFR 1.03 MG/DL (0.70-1.30); ETHYL ALCOHOL (ETHANOL) < 0.003 % (0.000-0.010); GLOMERULAR FILTRATION RATE > 60.0 (>49); GLUCOSE, FASTING 151 MG/DL (70-100); POTASSIUM SERUM 3.7 MEQ/L (3.5-5.1); SALICYLATE LEVEL < 1.7 MG/DL (5.0-30.0); SODIUM LEVEL 138 MEQ/L (136-145); TOTAL PROTEIN 7.9 GM/DL (6.4-8.2); TROPONIN I < 0.02 NG/ML (< 0.10)
[2018-03-06 16:07] LABS: ACETAMINOPHEN LEVEL < 2.0 UG/ML (10.0-30.0); CK-MB VALUE MASS 3.1 NG/ML (<3.6); MB/CK RELATIVE INDEX 1.23 (< OR =4)
[2018-03-06] MEDS: NS 1,000 ML IV ×2 (16:36→18:00)
[2018-03-06 16:53] LABS: AMMONIA 36 uMOL/L (<32)
[2018-03-06 17:02] LABS: LACTIC ACID SEPSIS PROTOCOL 3.6 MMOL/L (0.4-2.0)
[2018-03-06 17:36] LABS: KETONE, URINE AUTO RFX TRACE mg/dL (NEGATIVE); MUCUS, URINE RFX SMALL (NEGATIVE); NITRITE, URINE AUTO RFX NEGATIVE (NEGATIVE); RBC, URINE AUTO RFX 7 /HPF (0-3); SPECIFIC GRAVITY UR AUTO RFX 1.015 (1.002-1.035); SQUAM EPITHELIAL CELL UR AURFX 0 /HPF (0-6); URIC ACID CRYSTALS RFX LARGE; WBC, URINE AUTO RFX 0 /HPF (0-3)
[2018-03-06 17:40] LABS: AMPHETAMINES LEVEL URINE NEGATIVE (NEGATIVE); BARBITURATES URINE NEGATIVE (NEGATIVE); BENZODIAZEPINES URINE NEGATIVE (NEGATIVE); CANNABINOIDS URINE NEGATIVE (NEGATIVE); COCAINE METABOLITE URINE NEGATIVE (NEGATIVE); LEUKOCYTE ESTERASE UR AUTO RFX TRACE (NEGATIVE); METHADONE URINE NEGATIVE (NEGATIVE); OPIATES URINE NEGATIVE (NEGATIVE); PHENCYCLIDINE URINE NEGATIVE (NEGATIVE)
[2018-03-06 17:45] LABS: BEDSIDE GLUCOSE 134 MG/DL (80-115)
[2018-03-06] MEDS ORDERED: LORazepam 2 MG/ML VIAL (J2060) As Ordered (17:52)
[2018-03-06] MEDS: LORazepam 2 MG/ML VIAL (J2060) IV (17:58)
[2018-03-06] MEDS: levETIRAcetam INJection 1,000 MG in D5W 100 ML IV (18:08)
[2018-03-06] MEDS ORDERED: D5W/0.45% SODIUM CHLORIDE 1,000 ML IV (18:48)
[2018-03-06 19:23] LABS: ABG BASE EXCESS -6.2 (-2.0-2.0); ABG HCO3 17.7 MEQ/L (22.0-26.0); ABG O2 SATURATION 93.3 % (95.0-99.0); ABG PARTIAL PRESSURE CO2 30.9 mmHg (35.0-45.0); ABG PARTIAL PRESSURE O2 69.2 mmHg (75.0-100.0); ABG STANDARD HCO3 19.4 MEQ/L (22.0-26.0); ABG TOTAL CO2 18.7 MEQ/L (23.0-31.0); ABG pH (ARTERIAL) 7.376 UNITS (7.350-7.450)
[2018-03-06] MEDS ORDERED: ONDANSETRON 4MG/2ML VIAL (J2405) IV (20:00)
[2018-03-06] MEDS: MULTIVITAMIN -ADULT INJECTION 10 ML, THIAMINE INJection 100 MG, FOLIC ACID 1 MG in NS 1... IV (21:00)
[2018-03-06 21:18] LABS: ANION GAP 11 MEQ/L (8-16); BLOOD UREA NITROGEN 5 MG/DL (7-18); CALCIUM LEVEL 7.9 MG/DL (8.8-10.2); CARBON DIOXIDE LEVEL 22 MEQ/L (21-32); CHLORIDE LEVEL 105 MEQ/L (98-107); CK-MB VALUE MASS 4.8 NG/ML (<3.6); CPK CREATINE PHOSPHOKINASE 596 U/L (39-308); CREATININE FOR GFR 0.98 MG/DL (0.70-1.30); GLOMERULAR FILTRATION RATE > 60.0 (>49); GLUCOSE, FASTING 132 MG/DL (70-100); POTASSIUM SERUM 3.8 MEQ/L (3.5-5.1); SODIUM LEVEL 138 MEQ/L (136-145); TROPONIN I 0.02 NG/ML (< 0.10)
[2018-03-06] MEDS ORDERED: LORazepam 2 MG/ML VIAL (J2060) IV (22:00)
[2018-03-06] MEDS: SENOKOT S TAB PO (23:06)
[2018-03-06] MEDS: HEPARIN SOD (PORCINE) 5000 UNITS/ML VIAL SQ (23:06)
[2018-03-07 05:30] LABS: HEMATOCRIT 39.6 % (42.0-52.0); HEMOGLOBIN 14.2 g/dl (13.5-17.5); MEAN CORPUSCULAR HEMOGLOBIN 32.3 pg (27.0-33.0); MEAN CORPUSCULAR HGB CONC 35.9 g/dl (32.0-36.5); PLATELET COUNT, AUTOMATED 189 10^3/uL (150-450); RED CELL DISTRIBUTION WIDTH 12.3 % (11.5-14.5); WHITE BLOOD COUNT 14.3 10^3/uL (4.0-10.0)
[2018-03-07] MEDS: levETIRAcetam INJection 750 MG in D5W 100 ML IV (05:30)
[2018-03-07] MEDS: KCL 20MEQ IN D5/0.45NS 1000ML 1,000 ML IV (05:30)
[2018-03-07 05:50] LABS: MAGNESIUM LEVEL 2.4 MG/DL (1.8-2.4)
[2018-03-07 05:51] LABS: ANION GAP 9 MEQ/L (8-16); BLOOD UREA NITROGEN 4 MG/DL (7-18); CALCIUM LEVEL 8.3 MG/DL (8.8-10.2); CARBON DIOXIDE LEVEL 22 MEQ/L (21-32); CHLORIDE LEVEL 105 MEQ/L (98-107); CREATININE FOR GFR 0.74 MG/DL (0.70-1.30); GLOMERULAR FILTRATION RATE > 60.0 (>49); GLUCOSE, FASTING 99 MG/DL (70-100); POTASSIUM SERUM 3.3 MEQ/L (3.5-5.1); SODIUM LEVEL 136 MEQ/L (136-145)
[2018-03-07] MEDS: POTASSIUM CHLORIDE 10 MEQ SR TABLET PO (06:52)
[2018-03-07] MEDS: KCL 10MEQ/100ML SWI (KRUN) 10 MEQ in APPROPRIATE DILUENT 1 EA IV (06:53)
[2018-03-07 09:17] LABS: LACTIC ACID SEPSIS PROTOCOL 1.3 MMOL/L (0.4-2.0)
[2018-03-07] MEDS: HEPARIN SOD (PORCINE) 5000 UNITS/ML VIAL SQ ×2 (10:22→20:33)
[2018-03-07] MEDS: THIAMINE 100 MG TAB PO (10:23)
[2018-03-07] MEDS: SENOKOT S TAB PO ×2 (10:23→20:32)
[2018-03-07] MEDS: MULTIVITAMINS/MINERALS THERAP 1 TAB PO (10:23)
[2018-03-07] MEDS: FOLIC ACID 1 MG TAB PO (10:23)
[2018-03-07] MEDS: LORazepam 2 MG/ML VIAL (J2060) IV (10:24)
[2018-03-07] MEDS ORDERED: DOXYCYCLINE HYCLATE 100 MG TAB PO (10:45)
[2018-03-07] MEDS: DOXYCYCLINE HYCLATE 100 MG TAB PO ×2 (12:33→20:33)
[2018-03-07] MEDS ORDERED: LORazepam 1 MG TAB PO (13:45)
[2018-03-07] MEDS ORDERED: LORazepam 2 MG TAB PO (17:30)
[2018-03-07] MEDS: OXAZEPAM 10 MG CAP PO (18:14)
[2018-03-07] MEDS: levETIRAcetam 250MG TABLET (KEPPRA) PO (20:32)
[2018-03-08] MEDS: OXAZEPAM 10 MG CAP PO ×3 (02:45→21:30)
[2018-03-08 06:48] LABS: HEMATOCRIT 45.9 % (42.0-52.0); HEMOGLOBIN 16.3 g/dl (13.5-17.5); MEAN CORPUSCULAR HEMOGLOBIN 32.7 pg (27.0-33.0); MEAN CORPUSCULAR HGB CONC 35.5 g/dl (32.0-36.5); MEAN CORPUSCULAR VOLUME 92.2 fl (80.0-96.0); PLATELET COUNT, AUTOMATED 190 10^3/uL (150-450); RED BLOOD COUNT 4.98 10^6/uL (4.30-6.10); RED CELL DISTRIBUTION WIDTH 12.4 % (11.5-14.5); WHITE BLOOD COUNT 8.4 10^3/uL (4.0-10.0)
[2018-03-08 07:12] LABS: ANION GAP 8 MEQ/L (8-16); BLOOD UREA NITROGEN 4 MG/DL (7-18); CALCIUM LEVEL 9.2 MG/DL (8.8-10.2); CARBON DIOXIDE LEVEL 24 MEQ/L (21-32); CHLORIDE LEVEL 105 MEQ/L (98-107); CREATININE FOR GFR 0.78 MG/DL (0.70-1.30); GLOMERULAR FILTRATION RATE > 60.0 (>49); GLUCOSE, FASTING 90 MG/DL (70-100); MAGNESIUM LEVEL 2.3 MG/DL (1.8-2.4); POTASSIUM SERUM 3.5 MEQ/L (3.5-5.1); SODIUM LEVEL 137 MEQ/L (136-145)
[2018-03-08] MEDS: THIAMINE 100 MG TAB PO (09:26)
[2018-03-08] MEDS: MULTIVITAMINS/MINERALS THERAP 1 TAB PO (09:26)
[2018-03-08] MEDS: SENOKOT S TAB PO ×2 (09:26→21:30)
[2018-03-08] MEDS: FOLIC ACID 1 MG TAB PO (09:27)
[2018-03-08] MEDS: HEPARIN SOD (PORCINE) 5000 UNITS/ML VIAL SQ ×2 (09:27→21:31)
[2018-03-08] MEDS: DOXYCYCLINE HYCLATE 100 MG TAB PO ×2 (09:27→21:31)
[2018-03-08] MEDS: levETIRAcetam 250MG TABLET (KEPPRA) PO ×2 (09:29→21:30)
[2018-03-08] MEDS ORDERED: OXAZEPAM 10 MG CAP PO (16:00)
[2018-03-09] MEDS: OXAZEPAM 10 MG CAP PO (05:58)
[2018-03-09 06:24] LABS: HEMATOCRIT 44.1 % (42.0-52.0); HEMOGLOBIN 15.5 g/dl (13.5-17.5); MEAN CORPUSCULAR HEMOGLOBIN 32.6 pg (27.0-33.0); MEAN CORPUSCULAR HGB CONC 35.1 g/dl (32.0-36.5); MEAN CORPUSCULAR VOLUME 92.6 fl (80.0-96.0); PLATELET COUNT, AUTOMATED 199 10^3/uL (150-450); RED BLOOD COUNT 4.76 10^6/uL (4.30-6.10); RED CELL DISTRIBUTION WIDTH 12.5 % (11.5-14.5); WHITE BLOOD COUNT 8.9 10^3/uL (4.0-10.0)
[2018-03-09 06:41] LABS: ANION GAP 7 MEQ/L (8-16); BLOOD UREA NITROGEN 9 MG/DL (7-18); CARBON DIOXIDE LEVEL 25 MEQ/L (21-32); CHLORIDE LEVEL 105 MEQ/L (98-107); GLOMERULAR FILTRATION RATE > 60.0 (>49); GLUCOSE, FASTING 95 MG/DL (70-100); POTASSIUM SERUM 3.9 MEQ/L (3.5-5.1); SODIUM LEVEL 137 MEQ/L (136-145)
[2018-03-09] MEDS: THIAMINE 100 MG TAB PO (08:50)
[2018-03-09] MEDS: FOLIC ACID 1 MG TAB PO (08:50)
[2018-03-09] MEDS: SENOKOT S TAB PO (08:51)
[2018-03-09] MEDS: HEPARIN SOD (PORCINE) 5000 UNITS/ML VIAL SQ (08:51)
[2018-03-09] MEDS: MULTIVITAMINS/MINERALS THERAP 1 TAB PO (08:51)
[2018-03-09] MEDS: DOXYCYCLINE HYCLATE 100 MG TAB PO (08:51)
[2018-03-09] MEDS: levETIRAcetam 250MG TABLET (KEPPRA) PO (08:51)
== END 2018-03-09 13:04 | disposition home or self-care (01) | DRG 101 ==
LOC: M ED 14:43 → M ED INP 20:18 → M PCU 22:43
DX: G40.409 Other generalized epilepsy and epileptic syndromes, not intractable, without status epilepticus (principal); F10.239 Alcohol dependence with withdrawal, unspecified; Z79.899 Other long term (current) drug therapy; S01.91XA Laceration without foreign body of unspecified part of head, initial encounter; W18.30XA Fall on same level, unspecified, initial encounter; Y92.009 Unspecified place in unspecified non-institutional (private) residence as the place of occurrence of the external cause; E87.6 Hypokalemia; D72.829 Elevated white blood cell count, unspecified

== ENCOUNTER 2018-09-08 09:03 | Emergency (ER) | payer MEDICARE ==
[~2018-09-08] VITALS: Ht 162.6 cm; Wt 63.6 kg
[~2018-09-08 09:03] MED LIST changes: +DOXY100T PO; +FOLI1TAB11 PO; -FOLI1TAB4 PO; +KEPP1TAB2 PO
[2018-09-08] MEDS ORDERED: OXAZEPAM 15 MG CAP PO ONE (09:45)
[2018-09-08] MEDS ORDERED: levETIRAcetam INJection 1,000 MG in D5W 100 ML IV ONE (09:45)
[2018-09-08 10:00] LABS: HEMATOCRIT 46.7 % (42.0-52.0); HEMOGLOBIN 16.8 g/dl (13.5-17.5); MEAN CORPUSCULAR HEMOGLOBIN 32.9 pg (27.0-33.0); MEAN CORPUSCULAR VOLUME 91.6 fl (80.0-96.0); PLATELET COUNT, AUTOMATED 233 10^3/uL (150-450); WHITE BLOOD COUNT 16.4 10^3/uL (4.0-10.0)
[2018-09-08 10:29] LABS: BLOOD UREA NITROGEN 8 MG/DL (7-18); GLUCOSE, FASTING 181 MG/DL (70-100)
[2018-09-08 10:30] LABS: CALCIUM LEVEL 9.1 MG/DL (8.8-10.2); CARBON DIOXIDE LEVEL 23 MEQ/L (21-32); CHLORIDE LEVEL 99 MEQ/L (98-107); CREATININE FOR GFR 1.06 MG/DL (0.70-1.30); GLOMERULAR FILTRATION RATE > 60.0 (>49); POTASSIUM SERUM 4.7 MEQ/L (3.5-5.1); SODIUM LEVEL 132 MEQ/L (136-145)
[2018-09-08] MEDS ORDERED: NS 1,000 ML IV ONE (10:45)
[2018-09-08] MEDS ORDERED: THIAMINE 100 MG TAB PO ONE (10:45)
--- NOTE | 2018-09-08 10:50 | REP ---
CT Head without contrast HISTORY: Trauma COMPARISON: 03/07/2018 Decreased attenuation is present in the anteroinferior right temporal lobe. There is dilatation of the temporal horn of the right lateral ventricle. This represents encephalomalacia. Areas of decreased attenuation are present in the periventricular and subcortical white matter. This represents small-vessel ischemic disease. There is no intraparenchymal hemorrhage, acute infarct, mass or midline shift. The ventricular system and cortical sulci are dilated consistent with mild volume loss. There is no extra cerebral collection. There is no fracture. The visualized sinuses are clear. IMPRESSION: 1. Right temporal lobe encephalomalacia. 2. Small vessel ischemic disease. 3. Mild volume loss. Electronically Signed by Dion Meneses MD 09/08/2018 10:41 A
--- NOTE | 2018-09-08 11:01 | REP ---
MAXILLOFACIAL CT WITHOUT CONTRAST: HISTORY: Trauma. COMPARISON: 03/06/2018. The sinuses are clear. The ostiomeatal units are patent. The middle and inferior nasal turbinates are partially paradoxical. There is minimal deviation of the nasal septum to the left. The cribriform plate, medial merchant of the orbit, and optic canals are intact. There is aeration of the anterior clinoid processes. The carotid canals form a segment of the posterolateral merchant of the sphenoid sinus. The sphenoid sinus septum inserts into the right internal canal wall. There is no fracture. Soft tissue swelling is present over the right orbit. IMPRESSION: There is no acute or chronic sinusitis. Electronically Signed by Dion Meneses MD 09/08/2018 11:04 A
[2018-09-08 11:23] LABS: MAGNESIUM LEVEL 2.5 MG/DL (1.8-2.4)
[2018-09-08] MEDS ORDERED: KEPP1TAB2 PO (12:47)
[2018-09-08 13:20] VITALS: BP 146/97
== END 2018-09-08 13:34 | disposition home or self-care (01) ==
LOC: M ED 09:03 → EDBD 09:03 → M ED 13:34
DX: F10.231 Alcohol dependence with withdrawal delirium (principal); Z72.0 Tobacco use; G93.89 Other specified disorders of brain
CPT/HCPCS: 70450; 70486; 80048; 83735; 84443; 85027; 96374; 99285; G0480; J1953

== ENCOUNTER 2018-11-18 03:51 | Emergency (ER) | payer MEDICARE ==
[~2018-11-18] VITALS: Ht 162.6 cm; Wt 68.2 kg
[2018-11-18] MEDS ORDERED: NS 1,000 ML IV ONE ×3 (05:15→08:00)
[2018-11-18 05:26] LABS: BASO % 0.3 % (0.0-1.0); EOS % 0.3 % (0.0-3.0); HEMATOCRIT 44.6 % (42.0-52.0); HEMOGLOBIN 15.6 g/dl (13.5-17.5); LYMPH # 1.3 10^3/uL (1.5-4.5); LYMPH % 8.7 % (24.0-44.0); MEAN CORPUSCULAR HEMOGLOBIN 33.4 pg (27.0-33.0); MEAN CORPUSCULAR VOLUME 95.5 fl (80.0-96.0); MONO % 6.8 % (0.0-5.0); NEUTROPHILS # 12.5 10^3/uL (1.8-7.7); NEUTROPHILS % 82.9 % (36.0-66.0); PLATELET COUNT, AUTOMATED 281 10^3/uL (150-450); RED BLOOD COUNT 4.67 10^6/uL (4.30-6.10); WHITE BLOOD COUNT 15.1 10^3/uL (4.0-10.0)
[2018-11-18] MEDS ORDERED: levETIRAcetam INJection 1,000 MG in D5W 100 ML IV ONE (05:30)
[2018-11-18 06:03] LABS: ACETAMINOPHEN LEVEL < 2.0 UG/ML (10.0-30.0); ALT/SGPT 32 U/L (12-78); BILIRUBIN,DIRECT < 0.1 MG/DL (0.0-0.2); BILIRUBIN,TOTAL 0.2 MG/DL (0.2-1.0); BLOOD UREA NITROGEN 7 MG/DL (7-18); CALCIUM LEVEL 8.4 MG/DL (8.8-10.2); CARBON DIOXIDE LEVEL 22 MEQ/L (21-32); CHLORIDE LEVEL 107 MEQ/L (98-107); CPK CREATINE PHOSPHOKINASE 266 U/L (39-308); CREATININE FOR GFR 0.72 MG/DL (0.70-1.30); ETHYL ALCOHOL (ETHANOL) 0.182 % (0.000-0.010); GLOMERULAR FILTRATION RATE > 60.0 (>49); GLUCOSE, FASTING 92 MG/DL (70-100); MB/CK RELATIVE INDEX 0.98 (< OR =4); POTASSIUM SERUM 4.2 MEQ/L (3.5-5.1); SALICYLATE LEVEL 2.8 MG/DL (5.0-30.0); SODIUM LEVEL 140 MEQ/L (136-145); TOTAL PROTEIN 7.7 GM/DL (6.4-8.2); TROPONIN I < 0.02 NG/ML (< 0.10)
--- NOTE | 2018-11-18 06:43 | REPVR ---
EXAM: CT Head Without Contrast EXAM DATE/TIME: 11/18/2018 5:09 AM CLINICAL HISTORY: 68 years old, male; Signs and symptoms; Other: Psych problem; Additional info: Altered mental status TECHNIQUE: Imaging protocol: Axial computed tomography images of the head/brain without contrast. Radiation optimization: All CT scans at this facility use at least one of these dose optimization techniques: automated exposure control; mA and/or kV adjustment per patient size (includes targeted exams where dose is matched to clinical indication); or iterative reconstruction. COMPARISON: CT Head without contrast 09/08/2018 10:09 AM FINDINGS: Brain: Expansion of the cerebrospinal fluid space metal cranial fossa anteriorly stable measuring 3.1 CM anteroposterior by 2.8 CM transversely. Overall stable appearance with accentuation of the temporal horn on the right. Ventricles: Normal. No ventriculomegaly. Bones/joints: Unremarkable. No acute fracture. Sinuses: Visualized sinuses are unremarkable. No acute sinusitis. Mastoid air cells: Visualized mastoid air cells are unremarkable. No mastoid effusion. Soft tissues: Unremarkable. Other findings: Motion degradation. Hemispheric volume loss. IMPRESSION: 1. No acute intracranial process. Electronically signed by: Marly Pérez On 11/18/2018 06:43:01 AM
[2018-11-18] MEDS ORDERED: THIAMINE 100 MG TAB PO ONE (08:00)
[2018-11-18] MEDS ORDERED: OXAZEPAM 15 MG CAP PO ONE (08:00)
[2018-11-18 08:52] LABS: AMPHETAMINES LEVEL URINE NEGATIVE (NEGATIVE); BARBITURATES URINE NEGATIVE (NEGATIVE); BENZODIAZEPINES URINE NEGATIVE (NEGATIVE); CANNABINOIDS URINE NEGATIVE (NEGATIVE); COCAINE METABOLITE URINE NEGATIVE (NEGATIVE); METHADONE URINE NEGATIVE (NEGATIVE); OPIATES URINE NEGATIVE (NEGATIVE); PHENCYCLIDINE URINE NEGATIVE (NEGATIVE)
[2018-11-18 11:32] VITALS: BP 128/72
--- NOTE | 2018-11-19 09:09 | REP ---
Portable chest, 05:32 a.m., single AP view, the patient is sitting: Comparison is 03/06/2018. The lung sage are clear. The cardiac size is normal. The ish, mediastinum, and skeletal structures are unremarkable. Impression: Negative portable chest. There is no interval change. Electronically Signed by Marty Islas MD 11/18/2018 08:14 A
--- NOTE | 2018-11-19 20:37 | ECGEPIP ---
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
== END 2018-11-18 12:11 | disposition home or self-care (01) ==
LOC: M ED 03:51
DX: F10.10 Alcohol abuse, uncomplicated (principal); T68.XXXA Hypothermia, initial encounter; X31.XXXA Exposure to excessive natural cold, initial encounter; Y92.9 Unspecified place or not applicable; Y93.9 Activity, unspecified; Z79.899 Other long term (current) drug therapy; Z86.59 Personal history of other mental and behavioral disorders
CPT/HCPCS: 36415; 70450; 71045; 80048; 80076; 80307; 82140; 82550; 82553; 83605; 84443; 84484; 85025; 87040; 93005; 93041; 94760; 99285; G0480; J1953

== ENCOUNTER 2018-12-04 17:27 | Emergency (ER) | payer MEDICARE ==
[~2018-12-04] VITALS: Ht 162.6 cm; Wt 72.7 kg
[2018-12-04 17:52] LABS: BASO # 0.1 10^3/uL (0.0-0.2); BASO % 0.7 % (0.0-1.0); EOS # 0.1 10^3/uL (0.0-0.50); EOS % 1.1 % (0.0-3.0); HEMATOCRIT 43.8 % (42.0-52.0); HEMOGLOBIN 15.6 g/dl (13.5-17.5); LYMPH # 2.1 10^3/uL (1.5-4.5); LYMPH % 23.3 % (24.0-44.0); MEAN CORPUSCULAR HEMOGLOBIN 33.3 pg (27.0-33.0); MEAN CORPUSCULAR HGB CONC 35.6 g/dl (32.0-36.5); MEAN CORPUSCULAR VOLUME 93.6 fl (80.0-96.0); MONO # 0.7 10^3/uL (0.0-0.8); MONO % 7.9 % (0.0-5.0); NEUTROPHILS % 65.9 % (36.0-66.0); PLATELET COUNT, AUTOMATED 282 10^3/uL (150-450); RED BLOOD COUNT 4.68 10^6/uL (4.30-6.10); WHITE BLOOD COUNT 9.1 10^3/uL (4.0-10.0)
[2018-12-04] MEDS ORDERED: NS 1,000 ML IV ONE (18:00)
[2018-12-04] MEDS ORDERED: levETIRAcetam INJection 1,000 MG in D5W 100 ML IV ONE (18:00)
[2018-12-04] MEDS: levETIRAcetam INJection 500 MG in D5W MINI-BAG PLUS 100 ML IV SCH ×2 (18:15→18:33)
[2018-12-04 18:26] LABS: ALBUMIN 3.5 GM/DL (3.2-5.2); ALT/SGPT 44 U/L (12-78); BILIRUBIN,DIRECT 0.1 MG/DL (0.0-0.2); BILIRUBIN,TOTAL 0.4 MG/DL (0.2-1.0); BLOOD UREA NITROGEN 6 MG/DL (7-18); CALCIUM LEVEL 8.3 MG/DL (8.8-10.2); CARBON DIOXIDE LEVEL 23 MEQ/L (21-32); CHLORIDE LEVEL 102 MEQ/L (98-107); CPK CREATINE PHOSPHOKINASE 93 U/L (39-308); ETHYL ALCOHOL (ETHANOL) 0.018 % (0.000-0.010); GLOMERULAR FILTRATION RATE > 60.0 (>49); GLUCOSE, FASTING 102 MG/DL (70-100); MB/CK RELATIVE INDEX 1.18 (< OR =4); POTASSIUM SERUM 4.4 MEQ/L (3.5-5.1); SODIUM LEVEL 135 MEQ/L (136-145); TOTAL PROTEIN 7.7 GM/DL (6.4-8.2); TROPONIN I < 0.02 NG/ML (< 0.10)
[2018-12-04 18:37] LABS: OSMOLALITY SERUM 285 MOSM/KG (280-301)
--- NOTE | 2018-12-04 18:44 | REP ---
REASON: Altered mental status. COMPARISON: 10/2018 The technique utilized in obtaining the radiograph has magnified the cardiac silhouette and accentuated the interstitial markings. The superior mediastinal structures are midline. The cardiac silhouette is unremarkable in size, shape, and position. The diaphragmatic surfaces of the lungs are regular, and the costophrenic angles are clear. The pulmonary sage are clear. The imaged osseous structures are intact. IMPRESSION: There is no acute cardiopulmonary disease. Electronically Signed by Vern Holland DO 12/04/2018 06:50 P
[2018-12-04 18:51] LABS: AMPHETAMINES LEVEL URINE NEGATIVE (NEGATIVE); BARBITURATES URINE NEGATIVE (NEGATIVE); BENZODIAZEPINES URINE NEGATIVE (NEGATIVE); CANNABINOIDS URINE NEGATIVE (NEGATIVE); COCAINE METABOLITE URINE NEGATIVE (NEGATIVE); METHADONE URINE NEGATIVE (NEGATIVE); OPIATES URINE NEGATIVE (NEGATIVE); PHENCYCLIDINE URINE NEGATIVE (NEGATIVE)
--- NOTE | 2018-12-04 19:14 | REPVR ---
EXAM: CT Head Without Contrast EXAM DATE/TIME: 12/04/2018 5:53 PM CLINICAL HISTORY: 68 years old, male; Signs and symptoms; Other: Seizure/fall HX seizures; Additional info: Fall/seizure/ h/o seizure TECHNIQUE: Imaging protocol: Axial computed tomography images of the head/brain without contrast. Radiation optimization: All CT scans at this facility use at least one of these dose optimization techniques: automated exposure control; mA and/or kV adjustment per patient size (includes targeted exams where dose is matched to clinical indication); or iterative reconstruction. COMPARISON: CT Head without contrast 11/18/2018 5:12 AM FINDINGS: Brain: Stable encephalomalacia involving the anterior right temporal lobe. A small calcification is visualized within the anterior aspect of the right middle cranial fossa. There are periventricular foci of hypodensity, likely representing small vessel ischemic disease in a patient this age. The acuity of the white matter disease is indeterminate. The white-bland differentiation is otherwise preserved demonstrating no acute territorial type infarct. No acute intracranial hemorrhage is seen. Midline shift: There is no midline shift. Ventricles: There is mild prominence of the ventricles and sulci, compatible with atrophy. Bones/joints: The calvarium demonstrates no evidence for a depressed fracture. Sinuses: Visualized sinuses are unremarkable. No acute sinusitis. Mastoid air cells: Mild effusions within the left mastoid air cells. Soft tissues: Mild soft tissue swelling or scarring of the posterior scalp. Vasculature: Mild increased density involving the right middle cerebral artery. This is a progression from the prior study. Thrombus cannot be excluded. Intracranial atherosclerosis visualized. IMPRESSION: 1. No acute intracranial hemorrhage. 2. Mild increased density involving the right middle cerebral artery. This is a progression from the prior study. Thrombus cannot be excluded. No definitive acute territorial type infarct is visualized at this time. CTA suggested. 3. Stable encephalomalacia involving the anterior right temporal lobe. 4. There are periventricular foci of hypodensity, likely representing small vessel ischemic disease in a patient this age. 5. Mild atrophy. Electronically signed by: Ion Jones On 12/04/2018 19:13:56 PM
--- NOTE | 2018-12-04 19:25 | REPVR ---
EXAM: CT Cervical Spine Without Contrast EXAM DATE/TIME: 12/04/2018 5:53 PM CLINICAL HISTORY: 68 years old, male; Signs and symptoms; Other: Seizure/fall HX seizures; Additional info: Fall/seizure/ h/o seizure TECHNIQUE: Imaging protocol: Axial computed tomography images of the cervical spine without contrast. Coronal and sagittal reformatted images were created and reviewed. Radiation optimization: All CT scans at this facility use at least one of these dose optimization techniques: automated exposure control; mA and/or kV adjustment per patient size (includes targeted exams where dose is matched to clinical indication); or iterative reconstruction. COMPARISON: CT Spine,cervical w/o contrast 03/06/2018 3:55:25 PM FINDINGS: Vertebrae: No acute cervical spine fracture. The facet alignment is preserved bilaterally. The occipital condyles and C1-C2 articulations appear intact. Mild anterolisthesis of C4 on C5, with mild retrolisthesis of C5 on C6. There is a tiny cortical discontinuity involving the inferior C3 endplate, but this is a chronic finding compared to the prior study. The cervical lordosis is straightened. Hypertrophic degenerative changes are identified at the junction of the anterior C1 arch and dens process. Facet arthropathy is identified at multiple cervical levels. Discs/Spinal canal/Neural foramina: Spondylosis is visualized at multiple cervical levels. A decrease of disc height is identified from C4-5 to C6-7, most significant at C5-6. Mild narrowing of the thecal sac is identified at C5-6 and C6-7, with minimal narrowing of the thecal sac at C7-T1. Varying degrees of neural foraminal narrowing is identified at multiple cervical levels. Soft tissues: The prevertebral soft tissues are unremarkable. Lungs: No pneumothorax, as visualized. Vasculature: There is atherosclerotic calcification of the extracranial carotid arteries. IMPRESSION: 1. No acute cervical spine fracture. 2. Mild anterolisthesis of C4 on C5, with mild retrolisthesis of C5 on C6. 3. There is a tiny cortical discontinuity involving the inferior C3 endplate, but this is a chronic finding compared to the prior study. 4. The cervical lordosis is straightened. 5. Spondylosis is visualized at multiple cervical levels. 6. Mild narrowing of the thecal sac is identified at C5-6 and C6-7, with minimal narrowing of the thecal sac at C7-T1. 7. Additional findings described above. Electronically signed by: Ion Jones On 12/04/2018 19:25:10 PM
[2018-12-04] MEDS ORDERED: ISOVUE-370 76% 100ML VIAL (Q9967) As Ordered ONE (19:27)
[2018-12-04] MEDS ORDERED: OXAZEPAM 10 MG CAP PO ONE (19:30)
--- NOTE | 2018-12-04 20:05 | REPVR ---
EXAM: CT Angiography Head With Contrast EXAM DATE/TIME: 12/04/2018 7:34 PM CLINICAL HISTORY: 68 years old, male; Abnormal findings; Abnormal CT of the head; Additional info: Right mca density TECHNIQUE: Imaging protocol: Axial computed tomographic angiography images of the head with intravenous contrast using CT angiography protocol. Coronal and sagittal reformatted images were created and reviewed. 3D rendering: MIP and 3D reconstructed images were created and reviewed. Radiation optimization: All CT scans at this facility use at least one of these dose optimization techniques: automated exposure control; mA and/or kV adjustment per patient size (includes targeted exams where dose is matched to clinical indication); or iterative reconstruction. Contrast material: ISOVUE 370; Contrast volume: 100 ml; Contrast route: IV; COMPARISON: CT Head without contrast 12/04/2018 5:55 PM FINDINGS: Right internal carotid artery: Intracranial segment is patent with no significant stenosis. No aneurysm. Right anterior cerebral artery: No occlusion or significant stenosis. No aneurysm. Right middle cerebral artery: No occlusion or significant stenosis. No aneurysm. Right posterior cerebral artery: No occlusion or significant stenosis. No aneurysm. Right vertebral artery: The distal right vertebral artery is markedly small in caliber, without occlusion. Left internal carotid artery: Intracranial segment is patent with no significant stenosis. No aneurysm. Left anterior cerebral artery: No occlusion or significant stenosis. No aneurysm. Left middle cerebral artery: No occlusion or significant stenosis. No aneurysm. Left posterior cerebral artery: No occlusion or significant stenosis. No aneurysm. Left vertebral artery: A dominant left vertebral artery is identified. No significant stenosis or occlusion of the left vertebral artery. Basilar artery: Mild increased tortuosity of the basilar artery. No significant stenosis or occlusion of the basilar artery. IMPRESSION: 1. No significant arterial stenosis or occlusion on this CTA head. 2. A dominant left vertebral artery is identified. 3. Additional findings described above. Electronically signed by: Ion Jones On 12/04/2018 20:05:20 PM
--- NOTE | 2018-12-04 20:14 | REPVR ---
EXAM: CT Angiography Neck With Contrast EXAM DATE/TIME: 12/04/2018 7:34 PM CLINICAL HISTORY: 68 years old, male; Abnormal findings; Abnormal CT of the head; Additional info: Right mca density TECHNIQUE: Imaging protocol: Axial computed tomographic angiography images of the neck with intravenous contrast using CT angiography protocol. Coronal and sagittal reformatted images were created and reviewed. 3D rendering: MIP and 3D reconstructed images were created and reviewed. Radiation optimization: All CT scans at this facility use at least one of these dose optimization techniques: automated exposure control; mA and/or kV adjustment per patient size (includes targeted exams where dose is matched to clinical indication); or iterative reconstruction. Contrast material: ISOVUE 370; Contrast volume: 100 ml; Contrast route: IV; COMPARISON: CT Spine,cervical w/o contrast 12/04/2018 5:55 PM FINDINGS: VASCULATURE: Right common carotid artery: No significant stenosis. No dissection or occlusion. Right internal carotid artery: Mild atherosclerosis of the proximal right internal carotid artery, with less than 50% stenosis. Right external carotid artery: No occlusion or significant stenosis. Right vertebral artery: There is a diffuse decrease in caliber of the right vertebral artery, without occlusion. Left common carotid artery: No significant stenosis. No dissection or occlusion. Left internal carotid artery: Minimal atherosclerosis of the proximal left internal carotid artery, without significant stenosis or occlusion. Left external carotid artery: No occlusion or significant stenosis. Left vertebral artery: A dominant left vertebral artery is identified. No significant stenosis or occlusion of the left vertebral artery. NECK: Bones/joints: For discussion of findings involving the cervical spine, refer to the CT cervical spine report from the same day. Soft tissues: No significant soft tissue swelling. IMPRESSION: 1. Mild atherosclerosis of the proximal right internal carotid artery, with less than 50% stenosis. 2. A dominant left vertebral artery is identified. 3. There is a diffuse decrease in caliber of the right vertebral artery, without occlusion. 4. Additional findings described above. COMMENT: Reference per NASCET criteria for degree of stenosis: Mild: less than 50% stenosis. Moderate: 50-69% stenosis. Severe: 70-94% stenosis. Near occlusion: 95-99% stenosis. Electronically signed by: Ion Jones On 12/04/2018 20:14:38 PM
[2018-12-04] MEDS ORDERED: KEPP1TAB2 PO (21:05)
[2018-12-04 21:28] VITALS: BP 141/92
--- NOTE | 2018-12-04 22:17 | ECGEPIP ---
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
--- NOTE | 2018-12-12 06:44 | ED PDOC ---
Post-Departure Follow-Up dr emanuel faxed formal report of cta head for fu Lul Wilson MD December 12, 2018 06:44
--- NOTE | 2018-12-12 07:26 | ED PDOC ---
Post-Departure Follow-Up dr emanuel faxed cta neckfor fu dianag Lul Winslow MD December 12, 2018 07:26
--- NOTE | 2018-12-12 07:28 | ED PDOC ---
Post-Departure Follow-Up dr emanuel faxed formal report of ct head for fu Lul Wilson MD December 12, 2018 07:28
== END 2018-12-04 21:29 | disposition home or self-care (01) ==
LOC: M ED 17:27 → EDBD 17:27 → M ED 21:29
DX: R56.9 Unspecified convulsions (principal); I65.09 Occlusion and stenosis of unspecified vertebral artery; R00.0 Tachycardia, unspecified; Z87.820 Personal history of traumatic brain injury; F10.10 Alcohol abuse, uncomplicated; Z79.899 Other long term (current) drug therapy; Z91.14 Patient's other noncompliance with medication regimen
CPT/HCPCS: 70450; 70496; 70498; 71045; 72125; 80048; 80076; 80180; 80307; 82140; 82550; 82553; 83930; 84443; 84484; 85025; 93005; 93041; 94760; 96365; 99285; G0480; J1953; Q9967

== ENCOUNTER 2019-02-04 10:15 | Inpatient (IN) | payer MEDICAID, MEDICARE ==
[~2019-02-04] VITALS: Ht 162.6 cm; Wt 78.6 kg
[2019-02-04] MEDS ORDERED: NS 1,000 ML IV SCH ×2 (10:30→12:45)
[2019-02-04] MEDS ORDERED: THIAMINE HCL 200 MG/2 ML VIAL (J3411) IM ONE (10:30)
[2019-02-04] MEDS ORDERED: levETIRAcetam INJection 1,000 MG in D5W 100 ML IV ONE (10:45)
[2019-02-04 11:05] LABS: BASO % 0.5 % (0.0-1.0); EOS # 0.1 10^3/uL (0.0-0.50); HEMOGLOBIN 16.1 g/dl (13.5-17.5); LYMPH # 1.2 10^3/uL (1.5-4.5); LYMPH % 13.3 % (24.0-44.0); MEAN CORPUSCULAR HEMOGLOBIN 33.4 pg (27.0-33.0); MEAN CORPUSCULAR VOLUME 95.4 fl (80.0-96.0); MONO # 0.5 10^3/uL (0.0-0.8); NEUTROPHILS # 6.7 10^3/uL (1.8-7.7); NEUTROPHILS % 77.7 % (36.0-66.0); PLATELET COUNT, AUTOMATED 239 10^3/uL (150-450); RED BLOOD COUNT 4.82 10^6/uL (4.30-6.10); WHITE BLOOD COUNT 8.6 10^3/uL (4.0-10.0)
[2019-02-04 11:44] LABS: ACETAMINOPHEN LEVEL < 2.0 UG/ML (10.0-30.0); ALBUMIN 3.8 GM/DL (3.2-5.2); ALT/SGPT 70 U/L (12-78); BILIRUBIN,DIRECT 0.2 MG/DL (0.0-0.2); BILIRUBIN,TOTAL 0.5 MG/DL (0.2-1.0); BLOOD UREA NITROGEN 5 MG/DL (7-18); CALCIUM LEVEL 8.8 MG/DL (8.8-10.2); CARBON DIOXIDE LEVEL 17 MEQ/L (21-32); CHLORIDE LEVEL 107 MEQ/L (98-107); CREATININE FOR GFR 0.98 MG/DL (0.70-1.30); ETHYL ALCOHOL (ETHANOL) < 0.003 % (0.000-0.010); GLOMERULAR FILTRATION RATE > 60.0 (>49); GLUCOSE, FASTING 137 MG/DL (70-100); POTASSIUM SERUM 4.3 MEQ/L (3.5-5.1); SALICYLATE LEVEL < 1.7 MG/DL (5.0-30.0); SODIUM LEVEL 138 MEQ/L (136-145); TOTAL PROTEIN 7.9 GM/DL (6.4-8.2)
[2019-02-04] MEDS ORDERED: LORazepam 2 MG/ML VIAL (J2060) IV STA (12:30)
[2019-02-04 12:41] LABS: MAGNESIUM LEVEL 2.2 MG/DL (1.8-2.4)
[2019-02-04] MEDS ORDERED: LEVE750T5 PO (13:13)
[2019-02-04] MEDS ORDERED: LORazepam 2 MG TAB PO PRN (14:15)
[2019-02-04] MEDS ORDERED: ONDANSETRON 4 MG TAB (S0181) PO PRN (14:30)
[2019-02-04] MEDS ORDERED: KETOROLAC 30 MG/ML VIAL (J1885) IV PRN (14:30)
[2019-02-04 15:19] VITALS: BP 146/98
--- NOTE | 2019-02-04 15:45 | ECGEPIP ---
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
--- NOTE | 2019-02-04 16:07 | HPEPDOC ---
[facility] Medical History & Physical Date of Admission Feb 04, 2019 Date of Service: Feb 04, 2019 History and Physical CHIEF COMPLAINT: found unresponsive on the ground HISTORY OF PRESENT ILLNESS: Pt is 68 y/o M with Hx of ETOH use disorder and seizure disorder with frequent ED visits due to ETOH withdrawal syndrome and breakthrough seizures. Today pt wa s found on the ground unresponsive. EMS brought pt to ED. Upon my encounter pt is awake alert and oriented. Pt does not remember what happened prior to event. Pt is slow to responses. As per ED physician, he has seizure disorder due to ETOH use and is on seizure medications however not compliant with meds. There tongue lacerations as well as scattered multiple bruises on pt face. There is no bowel/bladder incontinence. Pt denies any headache, chest pain, palpitations, N/V or difficulty breathing. ED Course: Pt is hypertensive and tachycardic 120s. No hypoxia. CBC and BMP unremarkable. Head CT completed unremarkable. Received 1000mg IV Keppra. PAST MEDICAL HISTORY: as above PAST SURGICAL HISTORY: no surgical history SOCIAL HISTORY: pt is in disability, excessive ETOH drinking last drink no data available FAMILY HISTORY: not contributory ALLERGIES: Please see below. REVIEW OF SYSTEMS: 10 point negative except above HOME MEDICATIONS: Please see below. PHYSICAL EXAMINATION: GENERAL APPEARANCE: no acute distress AAOx3 slow in responses s/p keppra and ativan HEENT: multiple bruising on head and face no bleeding DRISS EOMI facial plethora no icterus CARDIOVASCULAR: S1 S2 no murmur LUNGS: no wheezing no rales ABDOMEN: soft NT ND EXTREMITIES: no cyanosis no edema no tenderness NEUROLOGICAL: motor sensory intact PSYCHIATRIC: mood affect appropriate LABORATORY DATA: See below. IMAGING: Head CT unremarkable MICROBIOLOGY: Please see below. Vital Signs Date Time Temp Pulse Resp B/P (MAP) Pulse Ox O2 Delivery O2 Flow Rate FiO2 02/04/19 15:15 98.7 103 16 163/103 (123) 96 Nasal Cannula 2.0 02/04/19 15:00 99 161/104 (123) 97 02/04/19 14:45 102 97 02/04/19 14:34 172/104 (126) 02/04/19 14:30 108 96 02/04/19 14:21 155/100 (118) 02/04/19 14:15 119 96 02/04/19 14:00 101 16 148/94 (112) 97 02/04/19 13:45 103 150/96 (114) 96 02/04/19 13:30 108 139/98 (112) 96 02/04/19 13:15 107 140/97 (111) 94 02/04/19 13:00 114 16 160/96 (117) 95 02/04/19 12:45 108 155/105 (122) 94 02/04/19 12:30 118 154/103 (120) 95 02/04/19 12:15 111 144/98 (113) 95 02/04/19 12:00 114 139/96 (110) 94 02/04/19 11:45 115 142/93 (109) 93 02/04/19 11:30 118 154/92 (112) 76 02/04/19 11:15 117 145/90 (108) 90 02/04/19 11:00 114 138/96 (110) 89 02/04/19 10:45 120 143/102 (116) 89 02/04/19 10:43 144/102 (116) 02/04/19 10:30 124 142/93 (109) 91 02/04/19 10:22 97.7 126 20 141/96 (111) 94 02/04/19 10:18 97.7 Laboratory Tests 02/04/19 10:52: Bedside Glucose (Misc Panel) 144H 02/04/19 10:54: White Blood Count 8.6, Red Blood Count 4.82, Hemoglobin 16.1, Hematocrit 46.0, Mean Corpuscular Volume 95.4, Mean Corpuscular Hemoglobin 33.4H, Mean Corpuscular Hemoglobin Concent 35.0, Red Cell Distribution Width 12.1, Platelet Count 239, Neutrophils (%) (Auto) 77.7H, Lymphocytes (%) (Auto) 13.3L, Monocytes (%) (Auto) 6.0H, Eosinophils (%) (Auto) 1.0, Basophils (%) (Auto) 0.5, Neutrophils # (Auto) 6.7, Lymphocytes # (Auto) 1.2L, Monocytes # (Auto) 0.5, Eosinophils # (Auto) 0.1, Basophils # (Auto) 0.0, Immature Granulocyte % (Auto) 1.5, Nucleated Red Blood Cells % (auto) 0.0, Sodium Level 138, Potassium Level 4.3, Chloride Level 107, Carbon Dioxide Level 17L, Anion Gap 14, Blood Urea Nitrogen 5L, Creatinine 0.98, Glomerular Filtration Rate > 60.0, Fasting Glucose 137H, Calcium Level 8.8, Magnesium Level 2.2, Aspartate Amino Transf (AST/SGOT) 86H, Alanine Aminotransferase (ALT/SGPT) 70, Alkaline Phosphatase 105, Total Bilirubin 0.5, Direct Bilirubin 0.2, Total Protein 7.9, Albumin 3.8, Albumin/Globulin Ratio 0.93L, Thyroid Stimulating Hormone (TSH) 1.960, Salicylates Level < 1.7L, Acetaminophen Level < 2.0L, Ethyl Alcohol Level < 0.003 A/P 1-Loss of Consciousness, resolved sec to possible post ictal phase Head CT unremarkable close clinical monitoring 2-Breakthrough Seizure sec to noncompliance with meds pt with hx of seizure disorder due to ETOH Cont Keppra IV 1000mg BID 3-ETOH withdrawal syndrome CIWA protocol Lorazepam prn neurocheck q2hr Telemonitoring 4-ETOH use disorder counseling Folate Thiamine 5-Facial lacerations irrigate with large amount of NS administer antiseptic wash SW/CM PT/OT when clinically optimized DT prophylaxis Heparin sc Vital Signs Vital Signs Date Time Temp Pulse Resp B/P (MAP) Pulse Ox O2 Delivery O2 Flow Rate FiO2 02/04/19 15:15 98.7 103 16 163/103 (123) 96 Nasal Cannula 2.0 Laboratory Data Labs 24H Laboratory Tests 2 02/04/19 10:52: Bedside Glucose (Misc Panel) 144H 02/04/19 10:54: Immature Granulocyte % (Auto) 1.5, White Blood Count 8.6, Red Blood Count 4.82, Hemoglobin 16.1, Hematocrit 46.0, Mean Corpuscular Volume 95.4, Mean Corpuscular Hemoglobin 33.4H, Mean Corpuscular Hemoglobin Concent 35.0, Red Cell Distribution Width 12.1, Platelet Count 239, Neutrophils (%) (Auto) 77.7H, Lymphocytes (%) (Auto) 13.3L, Monocytes (%) (Auto) 6.0H, Eosinophils (%) (Auto) 1.0, Basophils (%) (Auto) 0.5, Neutrophils # (Auto) 6.7, Lymphocytes # (Auto) 1.2L, Monocytes # (Auto) 0.5, Eosinophils # (Auto) 0.1, Basophils # (Auto) 0.0, Nucleated Red Blood Cells % (auto) 0.0, Anion Gap 14, Glomerular Filtration Rate > 60.0, Calcium Level 8.8, Magnesium Level 2.2, Aspartate Amino Transf (AST/SGOT) 86H, Alanine Aminotransferase (ALT/SGPT) 70, Alkaline Phosphatase 105, Total Bilirubin 0.5, Direct Bilirubin 0.2, Total Protein 7.9, Albumin 3.8, Albumin/Globulin Ratio 0.93L, Thyroid Stimulating Hormone (TSH) 1.960, Salicylates Level < 1.7L, Acetaminophen Level < 2.0L, Ethyl Alcohol Level < 0.003 CBC/BMP Laboratory Tests 02/04/19 10:54 Red Blood Count 4.82, Mean Corpuscular Volume 95.4, Mean Corpuscular Hemoglobin 33.4 H, Mean Corpuscular Hemoglobin Concent 35.0, Red Cell Distribution Width 12.1, Neutrophils (%) (Auto) 77.7 H, Lymphocytes (%) (Auto) 13.3 L, Monocytes (%) (Auto) 6.0 H, Eosinophils (%) (Auto) 1.0, Basophils (%) (Auto) 0.5, Neutrophils # (Auto) 6.7, Lymphocytes # (Auto) 1.2 L, Monocytes # (Auto) 0.5, Eosinophils # (Auto) 0.1, Basophils # (Auto) 0.0 Home Medications Scheduled Levetiracetam (Levetiracetam) 750 Mg Tablet, 750 MG PO BID PT RAN OUT A WEEK AGO, NEEDS NEW SCRIPT Allergies Coded Allergies: No Known Drug Allergies (Verified Allergy, Unknown, 11/18/18) A-FIB/CHADSVASC A-FIB History Current/History of A-Fib/PAF?: No JASON ESPINOZA MD Feb 04, 2019 16:06
[2019-02-04] MEDS: MULTIVITAMINS/MINERALS THERAP 1 TAB PO SCH (16:18)
[2019-02-04] MEDS: PANTOPRAZOLE 40MG INJ (PROTONIX) (C9113) IV SCH (16:18)
[2019-02-04] MEDS: NS 1,000 ML IV SCH ×2 (16:18→23:34)
[2019-02-04] MEDS: HEPARIN SOD (PORCINE) 5000 UNITS/ML VIAL SQ SCH ×2 (16:19→20:48)
--- NOTE | 2019-02-04 16:54 | REP ---
Clinical: Rib tenderness. Technique: PA and lateral. Comparison: 12/04/2018. Findings: Mediastinum and cardiac silhouette are stable. Basilar atelectasis suggested. No effusion. No pneumothorax. No obvious rib fracture identified. Old healed right clavicle fracture noted. Impression: Mild bibasilar atelectasis. Electronically Signed by Ahsan Weinstein MD 02/04/2019 04:45 P
[2019-02-04] MEDS: FOLIC ACID 1 MG in NS 50 ML IV SCH (17:17)
[2019-02-04 20:00] VITALS: BP 148/86
[2019-02-04] MEDS: levETIRAcetam INJection 1,000 MG in D5W 100 ML IV SCH (20:48)
[2019-02-04 21:26] VITALS: BP 148/86
[2019-02-04 23:59] VITALS: BP 154/90
[2019-02-05] VITALS (9 sets, daily range): BP systolic 128–163; BP diastolic 79–92
[2019-02-05] MEDS: NS 1,000 ML IV SCH ×4 (03:22→16:25)
[2019-02-05] MEDS: HEPARIN SOD (PORCINE) 5000 UNITS/ML VIAL SQ SCH ×3 (05:44→20:51)
[2019-02-05] MEDS: PANTOPRAZOLE 40MG INJ (PROTONIX) (C9113) IV SCH (08:22)
[2019-02-05] MEDS: levETIRAcetam INJection 1,000 MG in D5W 100 ML IV SCH ×2 (08:22→20:51)
[2019-02-05] MEDS: THIAMINE 100 MG TAB PO SCH (08:22)
[2019-02-05] MEDS: MULTIVITAMINS/MINERALS THERAP 1 TAB PO SCH (08:22)
[2019-02-05] MEDS ORDERED: THIAMINE HCL 200 MG/2 ML VIAL (J3411) IM SCH (09:00)
--- NOTE | 2019-02-05 12:23 | IPNPDOC ---
Text Note Date of Service The patient was seen on 02/05/19. NOTE GENERAL APPEARANCE: no acute distress AAOx3 slow in responses s/p keppra and ativan HEENT: multiple bruising on head and face no bleeding DRISS EOMI facial plethora no icterus CARDIOVASCULAR: S1 S2 no murmur LUNGS: no wheezing no rales ABDOMEN: soft NT ND EXTREMITIES: no cyanosis no edema no tenderness NEUROLOGICAL: motor sensory intact PSYCHIATRIC: mood affect appropriate LABORATORY DATA: See below. IMAGING: Head CT unremarkable MICROBIOLOGY: Please see below. Vital Signs Date Time Temp Pulse Resp B/P (MAP) Pulse Ox O2 Delivery O2 Flow Rate FiO2 02/05/19 08:00 98.4 81 17 139/85 (103) 96 2.0 02/05/19 04:00 83 136/84 02/05/19 04:00 98.5 83 16 136/84 (101) 98 2.0 02/05/19 00:00 87 154/90 02/04/19 23:59 99.8 87 18 154/90 (111) 99 2.0 02/04/19 21:26 97 148/86 02/04/19 20:00 98.6 97 18 148/86 (106) 98 2.0 02/04/19 15:19 103 146/98 02/04/19 15:19 98.4 103 18 146/98 (114) 98 2.0 02/04/19 15:15 98.7 103 16 163/103 (123) 96 Nasal Cannula 2.0 02/04/19 15:00 99 161/104 (123) 97 02/04/19 14:45 102 97 02/04/19 14:34 172/104 (126) 02/04/19 14:30 108 96 02/04/19 14:21 155/100 (118) 02/04/19 14:15 119 96 02/04/19 14:00 101 16 148/94 (112) 97 02/04/19 13:45 103 150/96 (114) 96 02/04/19 13:30 108 139/98 (112) 96 02/04/19 13:15 107 140/97 (111) 94 02/04/19 13:00 114 16 160/96 (117) 95 02/04/19 12:45 108 155/105 (122) 94 02/04/19 12:30 118 154/103 (120) 95 Intake & Output 02/05/19 06:00 Intake Total 1550 ml Output Total 1390 ml Balance 160 ml Current Medications Medications (Trade) Dose Ordered Sig/[place] Route PRN Reason Start Time Stop Time Status Last Admin Dose Admin Folic Acid 1 mg/ Sodium Chloride 50.2 ml @ 100.4 mls/ hr Q24H IV 02/04/19 16:00 02/04/19 17:17 100.4 MLS/HR Heparin Sodium (Porcine) (Heparin) 5,000 units Q8H SQ 02/04/19 14:00 02/05/19 05:44 5,000 UNITS Levetiracetam 1000 mg/Dextrose 110 ml @ 440 mls/hr BID IV 02/04/19 21:00 02/05/19 08:22 440 MLS/HR Multivitamins (Theragram-M) 1 tab DAILY PO 02/04/19 09:00 02/05/19 08:22 1 TAB Pantoprazole Sodium (Protonix) 40 mg DAILY IV 02/04/19 09:00 02/05/19 08:22 40 MG Sodium Chloride 1,000 ml @ 200 mls/hr Q5H IV 02/04/19 14:15 02/05/19 08:22 200 MLS/HR Thiamine HCl (Thiamine HCl) 100 mg DAILY PO 02/05/19 09:00 02/05/19 08:22 100 MG A/P 1-Loss of Consciousness, resolved sec to possible post ictal phase Head CT unremarkable close clinical monitoring 2-Breakthrough Seizure sec to noncompliance with meds pt with hx of seizure disorder due to ETOH Cont Keppra IV 1000mg BID 3-ETOH withdrawal syndrome CIWA protocol Lorazepam prn neurocheck q2hr Telemonitoring 4-ETOH use disorder counseling Folate Thiamine 5-Facial lacerations irrigate with large amount of NS administer antiseptic wash SW/CM PT/OT when clinically optimized DT prophylaxis Heparin sc VS,Fishbone, I+O VS, Fishbone, I+O Vital Signs Date Time Temp Pulse Resp B/P (MAP) Pulse Ox O2 Delivery O2 Flow Rate FiO2 02/05/19 08:00 98.4 81 17 139/85 (103) 96 2.0 02/04/19 15:15 Nasal Cannula I&O- Last 24 Hours up to 6 AM 02/05/19 06:00 Intake Total 1550 ml Output Total 1390 ml Balance 160 ml JASON ESPINOZA MD Feb 05, 2019 12:23
[2019-02-05] MEDS: FOLIC ACID 1 MG in NS 50 ML IV SCH (17:24)
[2019-02-06] VITALS (8 sets, daily range): BP systolic 111–156; BP diastolic 66–94
[2019-02-06] MEDS: HEPARIN SOD (PORCINE) 5000 UNITS/ML VIAL SQ SCH ×3 (06:35→21:19)
[2019-02-06] MEDS: PANTOPRAZOLE 40MG INJ (PROTONIX) (C9113) IV SCH (09:16)
[2019-02-06] MEDS: levETIRAcetam INJection 1,000 MG in D5W 100 ML IV SCH (09:16)
[2019-02-06] MEDS: MULTIVITAMINS/MINERALS THERAP 1 TAB PO SCH (09:16)
[2019-02-06] MEDS: THIAMINE 100 MG TAB PO SCH (09:16)
--- NOTE | 2019-02-06 13:48 | IPNPDOC ---
Date Seen The patient was seen on 02/06/19. Progress Note SUBJECTIVE: 68 Y male, h/o ETOH abuse and seizure admitted for seizure and ETOH withdrawal doing much reviews of systems no fever no chills no MINA no chest pain no abdominal pain no seizure OBJECTIVE PHYSICAL EXAMINATION: VITAL SIGNS: Please see below. GENERAL: AA Ox3 HEENT: Atraumatic CARDIOVASCULAR: S1 S2 regular, no murmur RESPIRATORY: clear, no wheezing no rales ABDOMINAL: soft BS +, no tenderness EXTREMITIES: no edema NEUROLOGICAL: non focal PSYCHOLOGICAL: no agitation, no psychosis LABORATORY DATA, IMAGING STUDIES, MICROBIOLOGY: Please see below. ASSESSMENT AND PLAN: 1. ETOH abuse and withdrawal stable and on Benzo as needed 2. Seizure will change to oral Keppra 3. DISPOSITION: Plans to discharge home tomorrow VS, I&O, 24H, [facility] Vital Signs/I&O Vital Signs Date Time Temp Pulse Resp B/P (MAP) Pulse Ox O2 Delivery O2 Flow Rate FiO2 02/06/19 12:00 97.6 99 18 140/94 (109) 98 02/05/19 20:00 2.0 02/04/19 15:15 Nasal Cannula I&O- Last 24 Hours up to 6 AM 02/06/19 06:00 Intake Total 240 ml Output Total 0 ml Balance 240 ml NICOLAS JACOBS MD Feb 06, 2019 13:48
[2019-02-06] MEDS: FOLIC ACID 1 MG TAB PO SCH (15:26)
[2019-02-06] MEDS ORDERED: SLF 3 ML SYR IV PRN (15:30)
[2019-02-06] MEDS: levETIRAcetam 250MG TABLET (KEPPRA) PO SCH (21:19)
[2019-02-06] MEDS: SLF 3 ML SYR IV SCH (21:20)
[2019-02-07 04:00] VITALS: BP 140/91
[2019-02-07] MEDS: HEPARIN SOD (PORCINE) 5000 UNITS/ML VIAL SQ SCH (05:27)
[2019-02-07] MEDS: SLF 3 ML SYR IV SCH (05:27)
[2019-02-07 08:00] VITALS: BP 133/94
[2019-02-07] MEDS: levETIRAcetam 250MG TABLET (KEPPRA) PO SCH (09:19)
[2019-02-07] MEDS: FOLIC ACID 1 MG TAB PO SCH (09:19)
[2019-02-07] MEDS: THIAMINE 100 MG TAB PO SCH (09:19)
[2019-02-07] MEDS: MULTIVITAMINS/MINERALS THERAP 1 TAB PO SCH (09:19)
[2019-02-07] MEDS ORDERED: ACETAMINOPHEN TAB 650MG DOSE (2X325MG) PO PRN (09:30)
[2019-02-07 12:00] VITALS: BP 133/90
--- NOTE | 2019-02-07 13:24 | REP ---
Clinical: Altered mental status. Comparison: 12/04/2018 . Findings: Age-related atrophy and microvascular ischemic changes are appreciated. The ventricles and sulci are symmetric. Staton-white differentiation is maintained. There is no evidence for acute intracranial hemorrhage, mass/mass effect, pathology or infarction. No extra-axial fluid collection. Calvarium is intact. Paranasal sinuses and mastoid air cells are clear. Impression: Age related atrophy and microvascular ischemic changes. No acute intracranial hemorrhage, infarction, or mass/mass effect. Electronically Signed by Ahsan Weinstein MD 02/04/2019 10:45 A
--- NOTE | 2019-02-07 15:18 | DS.PDOC ---
Discharge Summary General Date of Admission Feb 04, 2019 at 14:15 Date of Discharge 02/07/19 Primary Care Physician: A Attending Physician: NICOLAS JACOBS MD Discharge Summary PROCEDURES PERFORMED DURING STAY: [None]. ADMITTING DIAGNOSES: 1. Altered Mental status 2. Seizure 3. ETOH abuse DISCHARGE DIAGNOSES: 1. Altered mental status 2. Seizure 3. ETOH abuse 4. noncompliant COMPLICATIONS/CHIEF COMPLAINT: AMS. HISTORY OF PRESENT ILLNESS: Pt is 68 y/o M with Hx of ETOH use disorder and seizure disorder with frequent ED visits due to ETOH withdrawal syndrome and breakthrough seizures. Today pt was found on the ground unresponsive. EMS brought pt to ED. Upon my encounter pt is awake alert and oriented. Pt does not remember what happened prior to event. Pt is slow to responses. As per ED physician, he has seizure disorder due to ETOH use and is on seizure medications however not compliant with meds. There tongue lacerations as well as scattered multiple bruises on pt face. There is no bowel/bladder incontinence. Pt denies any headache, chest pain, palpitations, N/V or difficulty breathing. HOSPITAL COURSE: after admission, he was treated supportively including IVF, IV ativan and IV keppra; he states he run out of his keppra; now he is in his baseline and he did well with PT; he will go home today. I prescribed him keppra with 5 refills. he is advised to quit drinking DISCHARGE MEDICATIONS: Please see below. ALLERGIES: Please see below. PHYSICAL EXAMINATION ON DISCHARGE: VITAL SIGNS: Please see below. GENERAL: AA ox3, not in distress HEENT: atraumatic NECK: no JVD CARDIOVASCULAR EXAMINATION: S1S2 regular no murmurs RESPIRATORY EXAMINATION: clear, no wheezing no rales ABDOMINAL EXAMINATION: soft BS + non tender EXTREMITIES: no edema SKIN: no rash NEUROLOGICAL EXAMINATION: non focal PSYCHIATRIC EXAMINATION: no agitation or psychosis LABORATORY DATA: Please see below. PROGNOSIS: fair ACTIVITY: [As tolerated]. DIET: regular DISPOSITION: 01 Home, Self-Care. ITEMS TO FOLLOWUP ON ON OUTPATIENT: PCP in 1-2 weeks DISCHARGE CONDITION: [Stable]. TIME SPENT ON DISCHARGE: Greater than 35 minutes. Vital Signs/I&Os Vital Signs Date Time Temp Pulse Resp B/P (MAP) Pulse Ox O2 Delivery O2 Flow Rate FiO2 02/07/19 12:00 97.6 77 18 133/90 (104) 98 02/05/19 20:00 2.0 02/04/19 15:15 Nasal Cannula I&O- Last 24 Hours up to 6 AM 02/07/19 06:00 Intake Total 1200 ml Output Total 0 ml Balance 1200 ml Discharge Medications Scheduled Levetiracetam (Levetiracetam) 750 Mg Tablet, 750 MG PO BID, (Reported) PT RAN OUT A WEEK AGO, NEEDS NEW SCRIPT Allergies Coded Allergies: No Known Drug Allergies (Verified Allergy, Unknown, 11/18/18) NICOLAS JACOBS MD Feb 07, 2019 15:18
== END 2019-02-07 14:01 | disposition home or self-care (01) | DRG 101 ==
LOC: M ED 11:12 → M ED INP 14:15 → M PCU 15:20
PROVIDERS: ADMIT Hospitalist; ATTEND Hospitalist
DX: G40.509 Epileptic seizures related to external causes, not intractable, without status epilepticus (principal); F10.239 Alcohol dependence with withdrawal, unspecified; Z91.14 Patient's other noncompliance with medication regimen

== ENCOUNTER → 2019-04-10 | Outpatient (REF) | payer MEDICARE ==
[~2019-04-10] MED LIST changes: +LEVE750T5 PO
[2019-04-10 18:31] LABS: ALBUMIN 3.5 GM/DL (3.2-5.2); ALT/SGPT 102 U/L (12-78); BILIRUBIN,TOTAL 0.6 MG/DL (0.2-1.0); BLOOD UREA NITROGEN 5 MG/DL (7-18); CARBON DIOXIDE LEVEL 26 MEQ/L (21-32); CHLORIDE LEVEL 102 MEQ/L (98-107); CHOLESTEROL LEVEL 173 MG/DL (<200); CHOLESTEROL RISK RATIO 2.402 (<5); CREATININE FOR GFR 0.82 MG/DL (0.70-1.30); FREE T4 0.85 NG/DL (0.76-1.46); GLOMERULAR FILTRATION RATE > 60.0 (>49); GLUCOSE, FASTING 82 MG/DL (70-100); HDL CHOLESTEROL 72 MG/DL (>40); LDL CHOLESTEROL 87 MG/DL (<100); NON-HDL-C 101 MG/DL; POTASSIUM SERUM 4.4 MEQ/L (3.5-5.1); SODIUM LEVEL 137 MEQ/L (136-145); TOTAL PROTEIN 7.3 GM/DL (6.4-8.2); TRIGLYCERIDES LEVEL 70 MG/DL (<150)
[2019-04-10 19:29] LABS: HEMOGLOBIN A1c 5.2 %
== END ==
LOC: M LAB REF 16:40
PROVIDERS: ATTEND Nurse Practitioner Family
DX: Z00.01 Encounter for general adult medical examination with abnormal findings (principal); Z79.899 Other long term (current) drug therapy

== ENCOUNTER → 2019-05-09 | Outpatient (CLI) | payer MEDICARE ==
--- NOTE | 2019-05-09 09:25 | REP ---
Abdominal right upper quadrant ultrasound: Comparison is 11/07/2017. The studies performed for abnormal liver function tests. There is a mobile gallbladder calculus. This is unchanged. There is no gallbladder wall thickening or pericholecystic fluid. There is no intrahepatic or extrahepatic biliary duct dilatation. The common biliary duct measures 4.7 mm in diameter. The hepatic parenchyma is heterogeneous and acoustically dense, compatible with hepato steatosis/hepatocellular disease. There are no hepatic masses. The visualized areas of the pancreas are unremarkable. The right kidney measures 11.5 x 5.3 x 4.8 cm and is normal size. There is no hydronephrosis. There are echogenic foci within the kidneys compatible with nonobstructive calculi. Calcified vascular atheroma is another possibility. There is no abdominal aortic aneurysm. There is no right upper quadrant ascites. Impression: Mobile gallbladder calculus, unchanged. Hepato steatosis/hepatocellular disease. Renal calculi versus artifact from vascular calcified atheroma. No hydronephrosis. Electronically Signed by Marty Islas MD 05/09/2019 09:16 A
== END ==
LOC: M RAD 07:05
PROVIDERS: ATTEND Nurse Practitioner Family
DX: R94.5 Abnormal results of liver function studies (principal); K76.0 Fatty (change of) liver, not elsewhere classified; K80.20 Calculus of gallbladder without cholecystitis without obstruction; K76.89 Other specified diseases of liver

== ENCOUNTER 2019-06-09 12:21 | Inpatient (IN) | payer MEDICARE ==
[~2019-06-09] VITALS: Ht 162.6 cm; Wt 73.1 kg
[2019-06-09] MEDS ORDERED: NS 1,000 ML IV SCH (12:31)
[2019-06-09 13:00] LABS: BASO # 0.1 10^3/uL (0.0-0.2); BASO % 0.9 % (0.0-1.0); EOS # 0.4 10^3/uL (0.0-0.5); EOS % 3.4 % (0.0-3.0); HEMATOCRIT 47.3 % (42.0-52.0); HEMOGLOBIN 15.6 g/dl (13.5-17.5); LYMPH # 2.3 10^3/uL (1.5-5.0); MEAN CORPUSCULAR HEMOGLOBIN 32.8 pg (27.0-33.0); MEAN CORPUSCULAR VOLUME 99.4 fl (80.0-96.0); MONO % 8.1 % (0.0-5.0); NEUTROPHILS # 8.8 10^3/uL (1.5-8.5); NEUTROPHILS % 68.4 % (36.0-66.0); PLATELET COUNT, AUTOMATED 242 10^3/uL (150-450); RED BLOOD COUNT 4.76 10^6/uL (4.30-6.10); WHITE BLOOD COUNT 12.9 10^3/uL (4.0-10.0)
--- NOTE | 2019-06-09 13:12 | REP ---
Portable chest, 12th 46 p.m., single AP view: Comparison is 02/04/2019. The lung sage are clear. Cardiac size is enlarged, unchanged. The ish, mediastinum, skeletal structures are unremarkable. Impression: No acute cardiopulmonary findings. Chronic cardiomegaly. Electronically Signed by Marty Islas MD 06/09/2019 01:03 P
[2019-06-09 13:46] LABS: ALBUMIN 3.4 GM/DL (3.2-5.2); ALT/SGPT 71 U/L (12-78); BILIRUBIN,DIRECT 0.2 MG/DL (0.0-0.2); BILIRUBIN,TOTAL 0.3 MG/DL (0.2-1.0); BLOOD UREA NITROGEN 5 MG/DL (7-18); CALCIUM LEVEL 8.5 MG/DL (8.8-10.2); CARBON DIOXIDE LEVEL 13 MEQ/L (21-32); CHLORIDE LEVEL 105 MEQ/L (98-107); CK-MB VALUE MASS 1.9 NG/ML (<3.6); CPK CREATINE PHOSPHOKINASE 118 U/L (39-308); CREATININE FOR GFR 1.13 MG/DL (0.70-1.30); GLOMERULAR FILTRATION RATE > 60.0 (>49); GLUCOSE, FASTING 120 MG/DL (70-100); MB/CK RELATIVE INDEX 1.61 (< OR =4); POTASSIUM SERUM 3.6 MEQ/L (3.5-5.1); SODIUM LEVEL 139 MEQ/L (136-145); TOTAL PROTEIN 7.4 GM/DL (6.4-8.2); TROPONIN I < 0.02 NG/ML (< 0.10)
[2019-06-09 13:47] LABS: ACETAMINOPHEN LEVEL < 2.0 UG/ML (10.0-30.0)
--- NOTE | 2019-06-09 13:54 | REP ---
CT of the brain without IV contrast: Comparison is 02/04/2019. On the initial scan there is significant motion artifact, therefore the scan is repeated. There is no hemorrhage, edema, mass effect or midline shift. 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 The cortical stripe is otherwise unremarkable. The ventricles and sulci are chronically dilated compatible with diffuse volume loss. The visualized paranasal sinuses and mastoid air cells are clear. Impression: There is no hemorrhage, acute infarct or mass. There is chronic diffuse volume loss. 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 Electronically Signed by Marty Islas MD 06/09/2019 01:46 P
[2019-06-09] MEDS ORDERED: NS 1,000 ML IV ONE (14:00)
--- NOTE | 2019-06-09 14:26 | ECGEPIP ---
[facility] - ED Test Date: 2019-06-09 Pat Name: NEFTALI FINCH Department: Room: - Gender: Male Account Information Clerk: CT : 1950 Requested By: KIMMIE THOMAS Order Number: [id number] Reading MD: Elva Mcfarlane Measurements Intervals [place] Rate: 130 P: 27 NV: 157 QRS: -19 QRSD: 89 T: 26 QT: 322 QTc: 474 Interpretive Statements SINUS TACHYCARDIA INFERIOR MYOCARDIAL INFARCTION, PROBABLY OLD NSTTW abnormalities SIMILAR 02/04/19 Electronically Signed on 06-09-2019 14:26:42 EST by Elva Mcfarlane
[2019-06-09] MEDS ORDERED: LORazepam 2 MG/ML VIAL (J2060) As Ordered ONE (15:19)
[2019-06-09] MEDS ORDERED: LORazepam 2 MG/ML VIAL (J2060) IV STA (15:21)
[2019-06-09] MEDS: D5W/0.9% SODIUM CHLORIDE 1,000 ML IV SCH (16:15)
--- NOTE | 2019-06-09 16:40 | HPEPDOC ---
General Date of Admission 06/09/19 Date of Service: Jun 09, 2019 Chief Complaint The patient is a 68-year-old male admitted with a reason for visit of seizure. Source: Patient, EMS notes reviewed, Old records Exam Limitations: Clinical conditions, Intoxication Timing/Duration: 4-6 hours Severity: Moderate, Severe Associated Symptoms: Seizure, Syncope, Mechanical fall History of Present Illness Patient is 68 years old male with past medical history of alcohol abuse, multiple alcohol withdrawal seizures presented to the emergency room after he was found unconsciousness on the street by police. Patient was confused with ecchymosis, hemorrhages on his lips and inside mouth. In the emergency room patient developed tonic-clonic seizure activity with post ictal state. Patient has no recollection of the events and arrived disheveled, malodorous. Patient denies any pain, chills, cough, nausea, vomiting, diarrhea, shortness of breath, palpitations. Patient continues to have confusion on my interview, most of the history I received from previous records. Seizures subsided after IV [address] of the head was unremarkable for acute cerebrovascular accident (CVA). Chest x-ray had no pneumonia. Laboratory workup significant for leukocytosis of 12.9, leukocytosis 8.8, potassium 3.6, ammonia level 53, AST 91, ALT 71 Home Medications Scheduled Levetiracetam (Levetiracetam) 750 Mg Tablet, 750 MG PO BID, (Reported) Allergies Coded Allergies: No Known Drug Allergies (Verified Allergy, Unknown, 11/18/18) Past Medical History Medical History EtOH abuse, seizure EtOH withdrawal Family History Patient was not able to provide any family history due to post ictal confusion Social History * Smoker: former Smoker, current smoker, other Alcohol: heavy Drugs: denies A-FIB/CHADSVASC A-FIB History Current/History of A-Fib/PAF?: No Current PO Anticoag Therapy: No Review of Systems Constitutional: Reports: Weakness; Denies: Chills, Fever Eyes: Denies: Pain, Vision change ENT: Denies: Head Aches Skin: Denies: Rash Pulmonary: Denies: Dyspnea, Cough Cardiovascular: Denies: Chest Pain, Palpitations Gastrointestinal: Denies: Nausea, Vomiting Genitourinary: Denies: Dysuria, Frequency Hematologic: Reports: Bruising; Denies: Bleeding Excessively Endocrine: Denies: Polydipsia, Polyphagia Musculoskeletal: Denies: Neck Pain, Back Pain Neurological: Reports: Seizures Physical Examination General Exam: Positive: Moderate Distress Eye Exam: Positive: PERRLA, EOMI ENT Exam: Positive: Mucous membr. moist/pink (multiple ecchymosis) Neck Exam: Positive: Supple; Negative: JVD Chest Exam: Positive: Clear to auscultation Heart Exam: Positive: Rate Normal Telemetry: Positive: No significant arrhythmia Abdomen Exam: Positive: Normal bowel sounds, BS Hypoactive Extremity Exam: Negative: Clubbing, Cyanosis Skin Exam: Positive: Nl turgor and temperature, Lesion (bruises on the face) Neuro Exam: Positive: Normal Tone, Sensation Intact Psych Exam: Positive: Other (severely confused due to postictal state) Vital Signs Vital Signs Date Time Temp Pulse Resp B/P (MAP) Pulse Ox O2 Delivery O2 Flow Rate FiO2 06/09/19 15:35 128 145/89 (107) 94 Room Air 06/09/19 13:00 24 06/09/19 12:30 97.9 Laboratory Data Labs 24H Laboratory Tests 2 06/09/19 12:50: Immature Granulocyte % (Auto) 1.2, Neutrophils (%) (Auto) 68.4H, Lymphocytes (%) (Auto) 18.0L, Monocytes (%) (Auto) 8.1H, Eosinophils (%) (Auto) 3.4H, Basophils (%) (Auto) 0.9, Neutrophils # (Auto) 8.8H, Lymphocytes # (Auto) 2.3, Monocytes # (Auto) 1.0H, Eosinophils # (Auto) 0.4, Basophils # (Auto) 0.1, Nucleated Red Blood Cells % (auto) 0.0, Anion Gap 21H, Glomerular Filtration Rate > 60.0, Calcium Level 8.5L, Total Bilirubin 0.3, Direct Bilirubin 0.2, Aspartate Amino Transf (AST/SGOT) 91H, Alanine Aminotransferase (ALT/SGPT) 71, Alkaline Phosphatase 138H, Ammonia 53H, Total Creatine Kinase 118, Creatine Kinase MB 1.9, Creatine Kinase MB Relative Index 1.61, Troponin I < 0.02, Total Protein 7.4, Albumin 3.4, Albumin/Globulin Ratio 0.85L, Thyroid Stimulating Hormone (TSH) 3.140, Salicylates Level 2.0L, Acetaminophen Level < 2.0L, Ethyl Alcohol Level 0.010 06/09/19 13:00: Lactic Acid Level 8.8*H 06/09/19 13:03: Bedside Glucose (Misc Panel) 140H 06/09/19 15:29: CBC/BMP Laboratory Tests 06/09/19 12:50 Assessment/Plan Patient is 68 years old male with past medical history of alcohol abuse, multiple alcohol withdrawal seizures presented to the emergency room after he was found unconsciousness on the street by police. Patient was confused with ecchymosis, hemorrhages on his lips and inside mouth. In the emergency room patient developed tonic-clonic seizure activity with post ictal state. Problems (1) Seizure Status: Acute Problem Text: Secondary to alcohol withdrawal Multiple seizures in the past CIWA protocol 2 mg lorazepam every 4 hours standing dose for now Continue Keppra Nothing by mouth Seizure precautions Neurological check every 4 hours (2) Alcohol dependence with withdrawal Status: Chronic Problem Text: red cross worker consult (3) Metabolic acidosis Status: Acute Problem Text: Most likely secondary to seizures Will continue to monitor IV fluid Patient is afebrile, does not look toxic, unlikely patient has acute infectious diseases (4) Leukocytosis Status: Acute Problem Text: Secondary to seizure Continue to monitor Plan / VTE VTE Prophylaxis Ordered?: Yes DIANNA VAUGHAN DO Jun 09, 2019 16:40
[2019-06-09] MEDS ORDERED: levETIRAcetam 250MG TABLET (KEPPRA) PO ONE (16:45)
[2019-06-09] MEDS: LORazepam 2 MG TAB PO SCH ×2 (17:55→20:56)
[2019-06-09 18:15] VITALS: BP 160/92
[2019-06-09 20:00] VITALS: BP 165/105
[2019-06-09] MEDS: THIAMINE 100 MG TAB PO SCH (20:16)
[2019-06-09] MEDS: levETIRAcetam 250MG TABLET (KEPPRA) PO SCH (20:16)
[2019-06-09] MEDS: HEPARIN SOD (PORCINE) 5000 UNITS/ML VIAL SC SCH (20:16)
[2019-06-10] VITALS (7 sets, daily range): BP systolic 117–168; BP diastolic 71–104
[2019-06-10] MEDS: LORazepam 2 MG TAB PO SCH ×4 (01:00→13:10)
[2019-06-10] MEDS: D5W/0.9% SODIUM CHLORIDE 1,000 ML IV SCH ×2 (04:35→13:10)
[2019-06-10 05:46] LABS: HEMATOCRIT 43.1 % (42.0-52.0); HEMOGLOBIN 14.7 g/dl (13.5-17.5); MEAN CORPUSCULAR HGB CONC 34.1 g/dl (32.0-36.5); MEAN CORPUSCULAR VOLUME 96.6 fl (80.0-96.0); PLATELET COUNT, AUTOMATED 179 10^3/uL (150-450); RED BLOOD COUNT 4.46 10^6/uL (4.30-6.10); WHITE BLOOD COUNT 11.5 10^3/uL (4.0-10.0)
[2019-06-10 05:57] LABS: INR 1.22; PROTHROMBIN TIME 15.1 SECONDS (11.8-14.0)
[2019-06-10 06:23] LABS: ALT/SGPT 53 U/L (12-78); BILIRUBIN,TOTAL 0.9 MG/DL (0.2-1.0); BLOOD UREA NITROGEN 3 MG/DL (7-18); CALCIUM LEVEL 8.1 MG/DL (8.8-10.2); CARBON DIOXIDE LEVEL 24 MEQ/L (21-32); CHLORIDE LEVEL 106 MEQ/L (98-107); CREATININE FOR GFR 0.81 MG/DL (0.70-1.30); GLOMERULAR FILTRATION RATE > 60.0 (>49); GLUCOSE, FASTING 104 MG/DL (70-100); MAGNESIUM LEVEL 2.2 MG/DL (1.8-2.4); POTASSIUM SERUM 3.2 MEQ/L (3.5-5.1); SODIUM LEVEL 137 MEQ/L (136-145)
[2019-06-10] MEDS ORDERED: POTASSIUM CHLORIDE 10 MEQ SR TABLET PO ONE (07:15)
[2019-06-10] MEDS: MULTIVITAMINS/MINERALS THERAP 1 TAB PO SCH (08:36)
[2019-06-10] MEDS: METOPROLOL TART 25 MG TABLET PO SCH ×2 (08:37→20:20)
[2019-06-10] MEDS: levETIRAcetam 250MG TABLET (KEPPRA) PO SCH ×2 (08:38→20:19)
[2019-06-10] MEDS: FOLIC ACID 1 MG TAB PO SCH (08:38)
[2019-06-10] MEDS: HEPARIN SOD (PORCINE) 5000 UNITS/ML VIAL SC SCH ×2 (08:39→20:19)
[2019-06-10] MEDS: THIAMINE 100 MG TAB PO SCH ×2 (08:39→20:20)
--- NOTE | 2019-06-10 11:05 | IPNPDOC ---
Text Note Date of Service The patient was seen on 06/10/19. NOTE Subjective: No any acute events overnight, patient did not have seizures. He slept well, has a good appetite. Patient denies fever, chills, nausea, vomiting diarrhea or dysuria. Objective:VITAL SIGNS: Please see below. GENERAL APPEARANCE:not in apparent distress, poor hygiene HEENT: Normocephalic, atraumatic. Mucous members moist and pink CARDIOVASCULAR: Regular rate and rhythm. No murmurs, rubs or gallops. Radial pulses are intact. There is no lower extremity edema LUNGS: Diminished lung sounds, ABDOMEN: Bowel sounds are hypoactive. Abdomen is soft and nontender. MUSCULOSKELETAL: Range of motion is intact in all 4 extremities NEUROLOGICAL: Cranial nerves II-12 are grossly intact. Speech is not dysarthric Patient is 68 years old male with past medical history of alcohol abuse, multiple alcohol withdrawal seizures presented to the emergency room after he was found unconsciousness on the street by police. Patient was confused with ecchymosis, hemorrhages on his lips and inside mouth. In the emergency room patient developed tonic-clonic seizure activity with post ictal state. Placed on CIWA with standing dose of lorazepam. Seizures resolved Seizure Resolved Secondary to alcohol withdrawal Multiple seizures in the past CIWA protocol 2 mg lorazepam every 4 hours standing dose Continue Keppra Seizure precautions Neurological check every 4 hours Alcohol dependence with withdrawal line up worker consult Metabolic acidosis Resolved Most likely secondary to seizures Lactic acid is within normal limit Hypertension Metoprolol 25 twice a day VS,Fishbone, I+O VS, Fishbone, I+O Laboratory Tests 06/09/19 12:50 06/10/19 05:23 Vital Signs Date Time Temp Pulse Resp B/P (MAP) Pulse Ox O2 Delivery O2 Flow Rate FiO2 06/10/19 08:37 110 117/74 06/10/19 08:00 Room Air 06/10/19 08:00 98.9 20 95 I&O- Last 24 Hours up to 6 AM 06/10/19 05:59 Intake Total 3000 ml Output Total 500 ml Balance 2500 ml DIANNA VAUGHAN DO Jun 10, 2019 11:05
[2019-06-10] MEDS ORDERED: LORazepam 2 MG TAB PO PRN (14:00)
[2019-06-10 14:10] LABS: AMPHETAMINES LEVEL URINE NEGATIVE (NEGATIVE); BARBITURATES URINE NEGATIVE (NEGATIVE); BENZODIAZEPINES URINE NEGATIVE (NEGATIVE); CANNABINOIDS URINE NEGATIVE (NEGATIVE); COCAINE METABOLITE URINE NEGATIVE (NEGATIVE); METHADONE URINE NEGATIVE (NEGATIVE); OPIATES URINE NEGATIVE (NEGATIVE); PHENCYCLIDINE URINE NEGATIVE (NEGATIVE)
[2019-06-11] VITALS (7 sets, daily range): BP systolic 124–142; BP diastolic 77–91
[2019-06-11] MEDS: D5W/0.9% SODIUM CHLORIDE 1,000 ML IV SCH (00:08)
[2019-06-11] MEDS ORDERED: LORazepam 2 MG TAB PO STA (00:49)
[2019-06-11 05:48] LABS: HEMATOCRIT 40.9 % (42.0-52.0); MEAN CORPUSCULAR HEMOGLOBIN 32.8 pg (27.0-33.0); MEAN CORPUSCULAR HGB CONC 34.2 g/dl (32.0-36.5); MEAN CORPUSCULAR VOLUME 95.8 fl (80.0-96.0); PLATELET COUNT, AUTOMATED 150 10^3/uL (150-450); RED BLOOD COUNT 4.27 10^6/uL (4.30-6.10); WHITE BLOOD COUNT 7.6 10^3/uL (4.0-10.0)
[2019-06-11 05:58] LABS: INR 1.17; PROTHROMBIN TIME 14.6 SECONDS (11.8-14.0)
[2019-06-11 06:12] LABS: BLOOD UREA NITROGEN 5 MG/DL (7-18); CALCIUM LEVEL 8.5 MG/DL (8.8-10.2); CARBON DIOXIDE LEVEL 23 MEQ/L (21-32); CHLORIDE LEVEL 107 MEQ/L (98-107); CREATININE FOR GFR 0.84 MG/DL (0.70-1.30); GLOMERULAR FILTRATION RATE > 60.0 (>49); GLUCOSE, FASTING 105 MG/DL (70-100); POTASSIUM SERUM 3.6 MEQ/L (3.5-5.1); SODIUM LEVEL 136 MEQ/L (136-145)
[2019-06-11] MEDS ORDERED: FOLI1TAB11 PO (07:45)
[2019-06-11] MEDS ORDERED: VITMTA PO (07:45)
[2019-06-11] MEDS ORDERED: THIA100TA PO (07:45)
[2019-06-11] MEDS ORDERED: METO1TAB87 PO (07:45)
[2019-06-11] MEDS: MULTIVITAMINS/MINERALS THERAP 1 TAB PO SCH (08:18)
[2019-06-11] MEDS: METOPROLOL TART 25 MG TABLET PO SCH ×2 (08:18→21:10)
[2019-06-11] MEDS: levETIRAcetam 250MG TABLET (KEPPRA) PO SCH ×2 (08:18→21:10)
[2019-06-11] MEDS: THIAMINE 100 MG TAB PO SCH ×2 (08:19→21:10)
[2019-06-11] MEDS: HEPARIN SOD (PORCINE) 5000 UNITS/ML VIAL SC SCH ×2 (08:19→21:11)
[2019-06-11] MEDS: FOLIC ACID 1 MG TAB PO SCH (08:19)
[2019-06-11] MEDS ORDERED: SLF 3 ML SYR IV PRN (10:45)
[2019-06-11] MEDS: SLF 3 ML SYR IV SCH ×2 (14:04→21:11)
--- NOTE | 2019-06-11 17:29 | IPN ---
DATE: 06/11/2019 The patient was seen and examined at the bedside. Chart has been reviewed. No issues overnight. The patient has had no seizure activity. He is tolerating his diet well. No nausea or vomiting. Denies any tremors, restlessness, auditory or visual hallucinations. No other signs of withdrawal symptoms. The patient continues to have some gait imbalance and has had some improvement in ambulation with distance; however, he continues to have difficulty with safety awareness and has not passed a home safety evaluation. VITAL SIGNS: Temperature 98.7, pulse 85, respiratory rate 18, blood pressure 132/82, 96% on room air. GENERAL: The patient is awake, alert and oriented to person and place. Answering questions appropriately. Normocephalic, atraumatic. Moist mucous membranes. Appears disheveled. HEART: S1, S2. Sinus rhythm. No murmurs, rubs or gallops. LUNGS: Diminished breath sounds but clear. ABDOMEN: Soft, nontender, nondistended. Positive bowel wounds times four quadrants. No rebound or guarding. EXTREMITIES: No cyanosis, clubbing or any pitting edema. LABORATORY DATA: White count 7.6, hemoglobin 14, hematocrit 40, platelet count 150. Sodium 136, potassium 3.6, chloride 107, bicarbonate 23, BUN 5, creatinine 0.84, glucose of 105, calcium 8.5, magnesium 2. IMAGING STUDIES: 06/09/2019 chest x-ray showed no acute cardiopulmonary findings, cardiomegaly. ASSESSMENT AND PLAN: This is a 68-year-old male with a history of chronic alcoholism, alcohol abuse, withdrawal seizures, who presents after being found unconscious by police. THe patient is admitted for the following issues: 1. Alcohol withdrawal seizures. The patient has had prior episodes of seizures in the past, currently on neuro checks. No recurrent seizure episodes during this admission. He is on Clinical [place] Withdrawal Assessment (CIWA) protocol. Currently much more awake and alert on 2 gram sodium diet. Received four doses of Keppra. He has not passed a home safety evaluation and is not stable for discharge home. No signs of aspiration. 2. Chronic alcoholism and tobacco cessation counseling has been provided. The patient is not interested in alcohol rehabilitation. 3. Electrolyte abnormalities, resolved. Potassium and magnesium have been repleted on 06/10/2019. 4. Lactic acidosis secondary to possible seizures as outpatient, currently resolved on intravenous fluids. IV fluids have been discontinued. 5. Deep vein thrombosis (DVT) prophylaxis with heparin subcutaneously. DISPOSITION: The patient is medically stable for medical/surgical transfer. Awaiting physical therapy (PT) clearance prior to discharge home. May need rehabilitation. Attending Physician Addendum; I have independently interviewed and examined this patient at the bedside, and agree with the documented physical findings and management plan as written above. Pt's questions have been satisfactoriy answered. SHABNAM
--- NOTE | 2019-06-11 17:34 | IPNPDOC ---
Text Note Date of Service The patient was seen on 06/11/19. NOTE Subjective: Patient was examined at bedside. He was sitting in a chair eating breakfast. He denied any acute pain. He had no events overnight. He had no seizure activity and his CIWA protocol has been normal. Objective:VITAL SIGNS: Please see below. GENERAL APPEARANCE: Elderly gentleman sitting is a chair. Orientated to person, not oriented to location, patient believes it is the year 1919 HEENT: Poor dentition, pupils round and reactive to light CARDIOVASCULAR: Regular rate and rhythm. No murmurs, rubs or gallops. Radial pulses are intact. There is no lower extremity edema LUNGS: Clear to auscultate anterior and posterior ABDOMEN: Bowel sounds are hypoactive., No angiomas MUSCULOSKELETAL: Range of motion is intact in all 4 extremities, no edema, no baseline tremors NEUROLOGICAL: No asterixis, no tremor, Patient is 68 years old male with past medical history of alcohol abuse, multiple alcohol withdrawal seizures presented to the emergency room after he was found unconsciousness on the street by police. Patient was confused with ecchymosis, hemorrhages on his lips and inside mouth. In the emergency room patient developed tonic-clonic seizure activity with post ictal state. Placed on CIWA with standing dose of lorazepam. Seizures resolved #Seizure secondary to a cohort withdrawal, patient had a seizure in the ED on presentation, has not had a seizure since then. -Continue Her -CIWA protocol, normal results without any use of Ativan -2 mg lorazepam every 4 hours standing dose -Seizure precautions -Neurological check every 4 hours -EEG ordered -PT, OT. Patient has not currently cleared physical therapy. #Alcohol dependence with withdrawal -aircraft lay out worker consult -Patient will require outpatient rehabilitation services upon discharge #Metabolic acidosis -Resolved -Most likely secondary to seizures -Lactic acid is within normal limit #Hypertension -Well control -Metoprolol 25 twice a day VS,Fishbone, I+O VS, Fishbone, I+O Laboratory Tests 06/11/19 05:12 Vital Signs Date Time Temp Pulse Resp B/P (MAP) Pulse Ox O2 Delivery O2 Flow Rate FiO2 06/11/19 12:00 98.7 85 18 132/82 (99) 96 Room Air I&O- Last 24 Hours up to 6 AM 06/11/19 06:00 Intake Total 2040 ml Output Total 350 ml Balance 1690 ml GME ATTESTATION GME ATTESTATION My faculty preceptor for this patient encounter was physically present during the encounter and was fully available. All aspects of the patient interview, examination, medical decision making process, and medical care plan development were reviewed and approved by the faculty preceptor. The faculty preceptor is aware and concurs with the plan as stated in the body of this note and will attest to such by his/her cosignature. ARCELIA VERA DO Jun 11, 2019 17:34 WEST GALVAN MD Jun 12, 2019 10:56
[2019-06-12] VITALS (8 sets, daily range): BP systolic 102–140; BP diastolic 64–90
[2019-06-12] MEDS: SLF 3 ML SYR IV SCH ×3 (05:36→22:00)
[2019-06-12 05:57] LABS: HEMOGLOBIN 15.2 g/dl (13.5-17.5); MEAN CORPUSCULAR HEMOGLOBIN 32.5 pg (27.0-33.0); MEAN CORPUSCULAR HGB CONC 33.8 g/dl (32.0-36.5); MEAN CORPUSCULAR VOLUME 96.4 fl (80.0-96.0); PLATELET COUNT, AUTOMATED 184 10^3/uL (150-450); RED BLOOD COUNT 4.67 10^6/uL (4.30-6.10); WHITE BLOOD COUNT 8.3 10^3/uL (4.0-10.0)
[2019-06-12 06:10] LABS: INR 1.11
[2019-06-12 06:17] LABS: BLOOD UREA NITROGEN 8 MG/DL (7-18); CALCIUM LEVEL 8.3 MG/DL (8.8-10.2); CARBON DIOXIDE LEVEL 23 MEQ/L (21-32); CHLORIDE LEVEL 101 MEQ/L (98-107); GLOMERULAR FILTRATION RATE > 60.0 (>49); GLUCOSE, FASTING 92 MG/DL (70-100); MAGNESIUM LEVEL 1.9 MG/DL (1.8-2.4); POTASSIUM SERUM 3.9 MEQ/L (3.5-5.1); SODIUM LEVEL 132 MEQ/L (136-145)
[2019-06-12] MEDS: HEPARIN SOD (PORCINE) 5000 UNITS/ML VIAL SC SCH ×2 (09:05→20:20)
[2019-06-12] MEDS: MULTIVITAMINS/MINERALS THERAP 1 TAB PO SCH (09:06)
[2019-06-12] MEDS: levETIRAcetam 250MG TABLET (KEPPRA) PO SCH ×2 (09:06→20:19)
[2019-06-12] MEDS: THIAMINE 100 MG TAB PO SCH (09:06)
[2019-06-12] MEDS: FOLIC ACID 1 MG TAB PO SCH (09:06)
[2019-06-12] MEDS: METOPROLOL TART 25 MG TABLET PO SCH ×2 (10:02→20:19)
--- NOTE | 2019-06-12 11:12 | IPNPDOC ---
Text Note Date of Service The patient was seen on 06/12/19. NOTE Subjective: Patient was examined this Am. He had no complaints. He had no ov ernight activities, he had no seizure activity, continues to be afebrile, no signs of withdrawal. Objective:VITAL SIGNS: Please see below. GENERAL APPEARANCE: Orientated to person, place, and condition. He remembers his activities prior to hospitalization, not oriented to year HEENT: Poor dentition, CARDIOVASCULAR: Regular rate and rhythm. No JVD LUNGS: Clear to auscultate anterior and posterior ABDOMEN: Bowel sounds present, no organomegaly, no splenomegaly MUSCULOSKELETAL: No tremors, no edema NEUROLOGICAL: No asterixis, no tremor, Patient is 68 years old male with past medical history of alcohol abuse, multiple alcohol withdrawal seizures presented to the emergency room after he was found unconsciousness on the street by police. Patient was confused with ecchymosis, hemorrhages on his lips and inside mouth. In the emergency room patient developed tonic-clonic seizure activity with post ictal state. Placed on CIWA with standing dose of lorazepam. Seizures resolved #Seizure secondary to a alcohol withdrawal, patient had a seizure in the ED on presentation, has not had a seizure since then. -CIWA protocol, normal results without any use of Ativan -2 mg lorazepam every 4 hours standing dose -Seizure precautions -Neurological check every 4 hours -EEG pending -His mentation has improved, weighted PT clearance prior discharge. -Consider outpatient rehabilitation, discharge #Alcohol dependence with withdrawal -garbage pick up worker consult -Patient will require outpatient rehabilitation services upon discharge #Metabolic acidosis -Resolved -Most likely secondary to seizures -Lactic acid is within normal limit #Hypertension -Well control -Metoprolol 25 twice a day ATTENDING NOTE I have personally evaluated and examined the patient. Discussed with residents and student regarding plan of care and agree with the above assessment and plan. VS,Fishbone, I+O VS, Fishbone, I+O Laboratory Tests 06/12/19 05:35 Vital Signs Date Time Temp Pulse Resp B/P (MAP) Pulse Ox O2 Delivery O2 Flow Rate FiO2 06/12/19 10:02 102/64 06/12/19 07:47 98.8 93 18 95 Room Air I&O- Last 24 Hours up to 6 AM 06/12/19 06:00 Intake Total 1320 ml Output Total 1000 ml Balance 320 ml GME ATTESTATION GME ATTESTATION My faculty preceptor for this patient encounter was physically present during the encounter and was fully available. All aspects of the patient interview, examination, medical decision making process, and medical care plan development were reviewed and approved by the faculty preceptor. The faculty preceptor is aware and concurs with the plan as stated in the body of this note and will attest to such by his/her cosignature. ARCELIA VERA DO Jun 12, 2019 11:12 BRIDGETT GROVER MD Jun 12, 2019 18:58
[2019-06-13] VITALS: BP 118/72
[2019-06-13 04:00] VITALS: BP 115/66
[2019-06-13] MEDS: SLF 3 ML SYR IV SCH ×2 (05:46→05:47)
[2019-06-13 06:10] LABS: HEMATOCRIT 44.7 % (42.0-52.0); HEMOGLOBIN 15.4 g/dl (13.5-17.5); MEAN CORPUSCULAR HEMOGLOBIN 33.1 pg (27.0-33.0); MEAN CORPUSCULAR HGB CONC 34.5 g/dl (32.0-36.5); MEAN CORPUSCULAR VOLUME 96.1 fl (80.0-96.0); PLATELET COUNT, AUTOMATED 206 10^3/uL (150-450); RED BLOOD COUNT 4.65 10^6/uL (4.30-6.10); WHITE BLOOD COUNT 7.6 10^3/uL (4.0-10.0)
[2019-06-13 06:25] LABS: INR 1.07; PROTHROMBIN TIME 13.6 SECONDS (11.8-14.0)
[2019-06-13 06:31] LABS: BLOOD UREA NITROGEN 9 MG/DL (7-18); CALCIUM LEVEL 8.7 MG/DL (8.8-10.2); CARBON DIOXIDE LEVEL 23 MEQ/L (21-32); CHLORIDE LEVEL 103 MEQ/L (98-107); CREATININE FOR GFR 0.72 MG/DL (0.70-1.30); GLOMERULAR FILTRATION RATE > 60.0 (>49); GLUCOSE, FASTING 91 MG/DL (70-100); MAGNESIUM LEVEL 1.9 MG/DL (1.8-2.4); POTASSIUM SERUM 4.1 MEQ/L (3.5-5.1); SODIUM LEVEL 134 MEQ/L (136-145)
[2019-06-13 08:00] VITALS: BP_SYST 100; BP_DIAS 60; BP_DIAS 64
[2019-06-13 09:00] VITALS: BP 100/70
[2019-06-13] MEDS: METOPROLOL TART 25 MG TABLET PO SCH (09:00)
[2019-06-13] MEDS: MULTIVITAMINS/MINERALS THERAP 1 TAB PO SCH (09:46)
[2019-06-13] MEDS: HEPARIN SOD (PORCINE) 5000 UNITS/ML VIAL SC SCH (09:47)
[2019-06-13] MEDS: levETIRAcetam 250MG TABLET (KEPPRA) PO SCH (09:48)
[2019-06-13] MEDS: FOLIC ACID 1 MG TAB PO SCH (09:48)
--- NOTE | 2019-06-13 11:47 | DS.PDOC ---
Discharge Summary General Date of Admission Jun 09, 2019 at 15:58 Date of Discharge 06/13/19 Attending Physician: BRIDGETT GROVER MD Discharge Summary PROCEDURES PERFORMED DURING STAY: None ADMITTING DIAGNOSES: 1. Alcoholic intoxication 2. Seizures DISCHARGE DIAGNOSES: 1. Alcoholic intoxication 2. Seizures COMPLICATIONS/CHIEF COMPLAINT: Seizure Due To Alcohol Withdrawal. HISTORY OF PRESENT ILLNESS: Patient is 68 years old male with past medical history of alcohol abuse, multiple alcohol withdrawal seizures presented to the emergency room after he was found unconsciousness on the street by police. He was originally confused, with ecchymosis and hemorrhage on his lips. Initial head CT was negative any acute bleeding. He also had a negative chest radiograph. During initial presentation patient underwent a seizure in the ED that was subsided with 1 mg of IV lorazepam. He was admitted for alcohol detoxification, and placed seizure precaution. An EEG was ordered HOSPITAL COURSE: Patient was admitted, placed on C1 protocol. He was placed on seizure precaution and closely monitor. During his stay, his mentation improved, but returned to baseline. He did not have any seizures. His seizure medications were not adjusted. An EEG was done, at time of discharge EEG report is pending. Patient will follow-up with outpatient for EEG results. He was offered rehabilitation service. Patient declined. He was discharged in stable condition and high spirits. Physical exam and neuro exam was benign for any abnormalities. DISCHARGE MEDICATIONS: Please see below. ALLERGIES: Please see below. PHYSICAL EXAMINATION ON DISCHARGE: VITAL SIGNS: Please see below. VITALS: See Below GENERAL APPEARANCE: Alert no acute distress. Orientated to person, place, year, president, orientated to current living situation and behavior habits SKIN: Warm, well perfused. ENT: Palate intact, bland tympanic membrane no bulging, no erythema, Neck supple, no thyromegaly, poor dentition THORAX: Symmetrical. LUNGS: Clear to auscultation bilaterally. HEART: Normal S1, S2. No murmurs, no rubs, no gallops ABDOMEN: Soft. No masses. Bowel sounds are present. TRUNK/SPINE:Straight. EXTREMITIES: Moves all extremities equally. No gross deformities. PULSES: 2+ upper and lower extremity . LABORATORY DATA: Please see below. IMAGING: Head CT contrast: There is no hemorrhage, acute infarct or mass. There is chronic diffuse volume loss. 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 Chronic cardiomegaly. PROGNOSIS: Fair ACTIVITY: As tolerated. DIET:. Regular diet DISCHARGE PLAN:. To home DISPOSITION: Stable DISCHARGE INSTRUCTIONS: 1. Follow up with PCP ITEMS TO FOLLOWUP ON ON OUTPATIENT: 1. EEG 2. Alcoholic rehabilitation, should patient decide DISCHARGE CONDITION: Stable TIME SPENT ON DISCHARGE: Greater than 25 minutes. Vital Signs/I&Os Vital Signs Date Time Temp Pulse Resp B/P (MAP) Pulse Ox O2 Delivery O2 Flow Rate FiO2 06/13/19 09:00 91 100/70 06/13/19 08:00 98.4 17 94 Room Air I&O- Last 24 Hours up to 6 AM 06/13/19 06:00 Intake Total 2220 ml Output Total 1625 ml Balance 595 ml Laboratory Data Labs 24H Laboratory Tests 2 06/12/19 23:55: Methicillin-Resist S.aureus DNA PCR NOT DETECTED 06/13/19 05:39: Nucleated Red Blood Cells % (auto) 0.0, Prothrombin Time 13.6, Prothromb Time International Ratio 1.07, Anion Gap 8, Glomerular Filtration Rate > 60.0, Calcium Level 8.7L, Magnesium Level 1.9, Ammonia 22 CBC/BMP Laboratory Tests 06/13/19 05:39 Discharge Medications Scheduled Folic Acid (Folic Acid) 1 Mg Tablet, 1 MG PO DAILY Levetiracetam (Levetiracetam) 750 Mg Tablet, 750 MG PO BID, (Reported) Metoprolol Tartrate (Metoprolol Tartrate) 25 Mg Tablet, 25 MG PO BID Multivitamins (Thera M Plus Tablet) 1 Each Tablet, 1 TAB PO DAILY Thiamine Hcl (Vitamin B-1) 100 Mg Tablet, 100 MG PO BID Allergies Coded Allergies: No Known Drug Allergies (Verified Allergy, Unknown, 11/18/18) ATTENDING NOTE I have personally evaluated and examined the patient. Discussed with residents and student regarding plan of care and agree with the above assessment and plans of discharge. GME ATTESTATION GME ATTESTATION My faculty preceptor for this patient encounter was physically present during t he encounter and was fully available. All aspects of the patient interview, examination, medical decision making process, and medical care plan development were reviewed and approved by the faculty preceptor. The faculty preceptor is aware and concurs with the plan as stated in the body of this note and will attest to such by his/her cosignature. ARCELIA VERA DO Jun 13, 2019 11:47 BRIDGETT GROVER MD Jun 13, 2019 15:05
--- NOTE | 2019-06-13 21:35 | EEG ---
DATE OF PROCEDURE: 06/02/2019 REFERRING PHYSICIAN: Dr. Tunde Bowling DIAGNOSIS: Altered mental status. History of seizure. EE HISTORY: Patient is a 68-year-old man with history of multiple alcohol withdrawal seizures, alcohol abuse who was found unresponsive and unconscious on street by police. He was confused with hemorrhages on his lip and inside of mouth. In emergency department, had a tonic-clonic seizure. This EEG was done to rule out epileptic potential. He is currently taking Keppra, folic acid, thiamine, etc.. TECHNICAL DESCRIPTION This digital EEG was recorded by 21 scalp, ear and two EKG electrodes and was reviewed in bipolar and referential montages following reformatting in 10-20 international electrode placement system. INTERPRETATION The patient was noted to be in awake and drowsy states during this EEG. Resting awake background rhythm consisted of 9 Hz alpha activity measuring 15 - 40 microvolts in amplitude which was symmetric and reactive to eye opening. Attenuation of posterior dominant rhythm was seen during transition into drowsiness. Stage I and II sleep were reviewed and was symmetric bilaterally. Hyperventilation could not be performed. Photic stimulation at 3 - 30 Hz elicited symmetric photic driving, especially at mid frequencies. EKG revealed normal sinus rhythm. No focal, lateralizing or epileptiform abnormalities were seen. No relevant clinical activity was noted. CONCLUSION This EEG in awake, drowsy states, stage I and II sleep is within normal limits.
== END 2019-06-13 14:10 | disposition home or self-care (01) | DRG 101 ==
LOC: EDBD 12:21 → M ED 12:21 → M ED INP 15:58 → M PCU 18:15
PROVIDERS: ADMIT Internal Medicine; ATTEND Internal Medicine
DX: G40.409 Other generalized epilepsy and epileptic syndromes, not intractable, without status epilepticus (principal); E87.2 Acidosis; F10.229 Alcohol dependence with intoxication, unspecified; I10 Essential (primary) hypertension; Z79.899 Other long term (current) drug therapy; D72.829 Elevated white blood cell count, unspecified; F17.200 Nicotine dependence, unspecified, uncomplicated; E87.6 Hypokalemia; E83.42 Hypomagnesemia

== ENCOUNTER 2019-07-18 11:18 | Emergency (ER) | payer MEDICARE ==
[~2019-07-18 11:18] MED LIST changes: +METO1TAB87 PO
[2019-07-18] MEDS ORDERED: NS 1,000 ML IV SCH (11:50)
--- NOTE | 2019-07-18 12:10 | REP ---
CT brain: 07/18/2019. Indication: Head trauma. Comparison: 06/09/2019. Technique: Unenhanced axial CT images of the brain were performed from skull base to vertex. Findings: There is no acute intracranial hemorrhage, acute cortical infarction, mass effect, hydrocephalus or acute calvarial fracture. Anterior scalp hematoma is noted. Volume loss is present. Bitemporal encephalomalacia and chronic small vessel disease are present. Impression: No acute intracranial process. Anterior superior scalp hematoma. Volume loss. Bitemporal encephalomalacia. Sequelae of chronic microangiopathic ischemic disease. Electronically Signed by Tobi Kaur DO 07/18/2019 12:02 P
[2019-07-18 12:16] LABS: VENOUS BASE EXCESS -11.1 (-2.0-2.0); VENOUS HCO3 13.7 MEQ/L (23.0-27.0); VENOUS O2 SATURATION 80.4 % (60.0-80.0); VENOUS PARTIAL PRESSURE O2 49.8 mmHg (30.0-50.0); VENOUS PH 7.291 UNITS (7.330-7.430); VENOUS STANDARD HCO3 15.6 MEQ/L; VENOUS TOTAL CO2 14.6 MEQ/L (24.0-28.0)
[2019-07-18 12:18] LABS: BASO # 0.1 10^3/uL (0.0-0.2); BASO % 0.4 % (0.0-1.0); EOS % 0.1 % (0.0-3.0); HEMATOCRIT 46.8 % (42.0-52.0); HEMOGLOBIN 15.9 g/dl (13.5-17.5); LYMPH # 0.6 10^3/uL (1.5-5.0); LYMPH % 4.4 % (24.0-44.0); MEAN CORPUSCULAR HEMOGLOBIN 32.9 pg (27.0-33.0); MEAN CORPUSCULAR VOLUME 96.9 fl (80.0-96.0); MONO # 0.9 10^3/uL (0.0-0.8); MONO % 6.6 % (0.0-5.0); NEUTROPHILS # 12.3 10^3/uL (1.5-8.5); NEUTROPHILS % 87.6 % (36.0-66.0); PLATELET COUNT, AUTOMATED 224 10^3/uL (150-450); RED BLOOD COUNT 4.83 10^6/uL (4.30-6.10)
--- NOTE | 2019-07-18 12:24 | REP ---
CT cervical spine: 07/18/2019. Indication: Cervical spine trauma. Comparison: 12/04/2018. Technique: Unenhanced axial CT images of the cervical spine were performed with coronal and sagittal reconstructions provided. Findings: Image quality is degraded by patient motion. There is no evidence of acute fracture, subluxation or dislocation. Vertebral body alignment is within anatomical limits. Multilevel spondylosis is present most pronounced at C5/C6 without severe spinal canal narrowing detected. There is no hemorrhage or additional acute post traumatic sequelae within the spinal canal. The visualized lungs are clear. Impression: No acute osseous injury of the cervical spine. Electronically Signed by Tobi Kaur DO 07/18/2019 12:16 P
[2019-07-18 12:47] LABS: ACETAMINOPHEN LEVEL < 2.0 UG/ML (10.0-30.0); ALBUMIN 3.7 GM/DL (3.2-5.2); ALT/SGPT 63 U/L (12-78); BILIRUBIN,DIRECT 0.2 MG/DL (0.0-0.2); BILIRUBIN,TOTAL 0.4 MG/DL (0.2-1.0); BLOOD UREA NITROGEN 3 MG/DL (7-18); CALCIUM LEVEL 8.8 MG/DL (8.8-10.2); CARBON DIOXIDE LEVEL 15 MEQ/L (21-32); CHLORIDE LEVEL 107 MEQ/L (98-107); CPK CREATINE PHOSPHOKINASE 114 U/L (39-308); CREATININE FOR GFR 1.26 MG/DL (0.70-1.30); ETHYL ALCOHOL (ETHANOL) 0.003 % (0.000-0.010); GLOMERULAR FILTRATION RATE > 60.0 (>49); GLUCOSE, FASTING 157 MG/DL (70-100); POTASSIUM SERUM 3.5 MEQ/L (3.5-5.1); SALICYLATE LEVEL < 1.7 MG/DL (5.0-30.0); SODIUM LEVEL 138 MEQ/L (136-145); TOTAL PROTEIN 7.6 GM/DL (6.4-8.2)
[2019-07-18 15:09] LABS: AMPHETAMINES LEVEL URINE NEGATIVE (NEGATIVE); BARBITURATES URINE NEGATIVE (NEGATIVE); BENZODIAZEPINES URINE NEGATIVE (NEGATIVE); CANNABINOIDS URINE NEGATIVE (NEGATIVE); COCAINE METABOLITE URINE NEGATIVE (NEGATIVE); METHADONE URINE NEGATIVE (NEGATIVE); OPIATES URINE NEGATIVE (NEGATIVE); PHENCYCLIDINE URINE NEGATIVE (NEGATIVE)
[2019-07-18 15:37] LABS: MAGNESIUM LEVEL 2.5 MG/DL (1.8-2.4)
--- NOTE | 2019-07-18 15:39 | ECGEPIP ---
[facility] - ED Test Date: 2019-07-18 Pat Name: NEFTALI FINCH Department: Room: - Gender: Male Site Auditor: : [id number] Requested By: Elva Mcfarlane Order Number: [id number] Reading MD: Elva Mcfarlane Measurements Intervals [place] Rate: 112 P: 46 OH: 193 QRS: -21 QRSD: 88 T: 33 QT: 327 QTc: 448 Interpretive Statements SINUS TACHYCARDIA WITH OCCASIONAL VENTRICULAR PREMATURE COMPLEXES INFERIOR MYOCARDIAL INFARCTION, OF INDETERMINATE AGE LOW VOLTAGE LIMB NSTTW abnormalities DECREASED RATE 06/09/19 Electronically Signed on 07-18-2019 15:38:48 EST by Elva Mcfarlane
[2019-07-18] MEDS ORDERED: levETIRAcetam 250MG TABLET (KEPPRA) PO ONE (15:45)
[2019-07-18] MEDS ORDERED: OXAZEPAM 15 MG CAP PO ONE (16:15)
[2019-07-18 17:59] VITALS: BP 120/77
== END 2019-07-18 18:01 | disposition home or self-care (01) ==
LOC: M ED 11:18 → EDBD 11:18 → M ED 18:01
DX: F10.239 Alcohol dependence with withdrawal, unspecified (principal); R56.9 Unspecified convulsions; F17.210 Nicotine dependence, cigarettes, uncomplicated; R94.31 Abnormal electrocardiogram [ECG] [EKG]; S00.03XA Contusion of scalp, initial encounter; X58.XXXA Exposure to other specified factors, initial encounter; G93.40 Encephalopathy, unspecified; I67.82 Cerebral ischemia; Z79.899 Other long term (current) drug therapy
CPT/HCPCS: 70450; 72125; 80048; 80076; 80307; 82550; 82803; 83735; 84443; 85025; 93005; 93041; 94760; 96361; 96374; 99285; G0480

== ENCOUNTER → 2019-08-02 | Outpatient (CLI) | payer MEDICARE ==
[2019-08-02 12:32] LABS: BASO # 0.1 10^3/uL (0.0-0.2); BASO % 1.1 % (0.0-1.0); EOS # 0.2 10^3/uL (0.0-0.5); EOS % 3.3 % (0.0-3.0); HEMATOCRIT 43.5 % (42.0-52.0); HEMOGLOBIN 15.1 g/dl (13.5-17.5); LYMPH # 1.4 10^3/uL (1.5-5.0); LYMPH % 19.3 % (24.0-44.0); MEAN CORPUSCULAR HEMOGLOBIN 33.2 pg (27.0-33.0); MEAN CORPUSCULAR HGB CONC 34.7 g/dl (32.0-36.5); MEAN CORPUSCULAR VOLUME 95.6 fl (80.0-96.0); MONO # 0.6 10^3/uL (0.0-0.8); MONO % 8.7 % (0.0-5.0); NEUTROPHILS # 4.9 10^3/uL (1.5-8.5); NEUTROPHILS % 67.3 % (36.0-66.0); PLATELET COUNT, AUTOMATED 275 10^3/uL (150-450); RED BLOOD COUNT 4.55 10^6/uL (4.30-6.10); WHITE BLOOD COUNT 7.3 10^3/uL (4.0-10.0)
[2019-08-02 13:03] LABS: ALBUMIN 3.5 GM/DL (3.2-5.2); ALT/SGPT 60 U/L (12-78); BILIRUBIN,TOTAL 0.5 MG/DL (0.2-1.0); BLOOD UREA NITROGEN 5 MG/DL (7-18); CALCIUM LEVEL 8.5 MG/DL (8.8-10.2); CARBON DIOXIDE LEVEL 23 MEQ/L (21-32); CHLORIDE LEVEL 108 MEQ/L (98-107); CREATININE FOR GFR 0.86 MG/DL (0.70-1.30); GLOMERULAR FILTRATION RATE > 60.0 (>49); GLUCOSE, FASTING 85 MG/DL (70-100); SODIUM LEVEL 139 MEQ/L (136-145); TOTAL PROTEIN 7.3 GM/DL (6.4-8.2)
== END ==
LOC: M LAB 11:02
PROVIDERS: ATTEND Nurse Practitioner Family
DX: F10.11 Alcohol abuse, in remission (principal); F41.1 Generalized anxiety disorder; G40.89 Other seizures; I73.89 Other specified peripheral vascular diseases

== ENCOUNTER → 2019-08-13 | Outpatient (CLI) | payer MEDICARE ==
--- NOTE | 2019-08-13 15:43 | REP ---
INDICATION: Altered mental status. Seizures. PROCEDURE: Brain without contrast. COMPARISON STUDIES: MRI brain 12/27/[address] head 03/04/2019 reviewed. FINDINGS: No evidence of restricted diffusion to suggest acute infarction. No gradient-echo susceptibility to suggest hemorrhage. The ventricles and extra-axial CSF spaces are within normal limits for age. No mass effect or midline shift. No abnormal fluid collections. There is chronic encephalomalacia at the anterior temporal lobes bilaterally, greater on the right. This is seen on multiple prior studies. There is also encephalomalacia around the left temporal horn. This may be post traumatic. There appears to be some fluid and left mastoid air cells. CONCLUSION: No acute findings. Tissue loss in the temporal lobes bilaterally, anteriorly and greater on the right with white matter changes around the temporal horn of the lateral ventricular system are a chronic finding, may be post traumatic. Electronically Signed by Livan Dorantes MD 08/13/2019 03:34 P
== END ==
LOC: M RAD 14:33
PROVIDERS: ATTEND Nurse Practitioner Family
DX: G40.89 Other seizures (principal); F10.11 Alcohol abuse, in remission; F41.1 Generalized anxiety disorder; I73.89 Other specified peripheral vascular diseases

== ENCOUNTER 2019-10-02 09:36 | Inpatient (IN) | payer MEDICARE ==
[~2019-10-02] VITALS: Ht 162.6 cm; Wt 73.7 kg
[2019-10-02] VITALS (17 sets, daily range): BP systolic 121–145; BP diastolic 79–98
[2019-10-02] MEDS ORDERED: TETANUS/DIPHTHERIA TOX ADSORB ADULT 0.5ML SYR/VIAL (90714) IM ONE (09:45)
[2019-10-02 10:21] LABS: BASO # 0.1 10^3/uL (0.0-0.2); BASO % 0.7 % (0.0-1.0); EOS # 0.2 10^3/uL (0.0-0.5); HEMATOCRIT 40.3 % (42.0-52.0); HEMOGLOBIN 14.1 g/dl (13.5-17.5); LYMPH # 1.4 10^3/uL (1.5-5.0); LYMPH % 18.3 % (24.0-44.0); MEAN CORPUSCULAR HEMOGLOBIN 32.7 pg (27.0-33.0); MEAN CORPUSCULAR VOLUME 93.5 fl (80.0-96.0); MONO # 0.7 10^3/uL (0.0-0.8); MONO % 9.9 % (0.0-5.0); NEUTROPHILS # 5.1 10^3/uL (1.5-8.5); NEUTROPHILS % 67.6 % (36.0-66.0); PLATELET COUNT, AUTOMATED 227 10^3/uL (150-450); RED BLOOD COUNT 4.31 10^6/uL (4.30-6.10); WHITE BLOOD COUNT 7.5 10^3/uL (4.0-10.0)
--- NOTE | 2019-10-02 10:28 | REPVR ---
PROCEDURE INFORMATION: Exam: CT Head Without Contrast Exam date and time: 10/02/2019 10:13 AM Age: 69 years old Clinical indication: Other: Siezure; Additional info: Altered mental status TECHNIQUE: Imaging protocol: Computed tomography of the head without contrast. Radiation optimization: All CT scans at this facility use at least one of these dose optimization techniques: automated exposure control; mA and/or kV adjustment per patient size (includes targeted exams where dose is matched to clinical indication); or iterative reconstruction. COMPARISON: CT Head without contrast 07/18/2019 11:33 AM FINDINGS: Brain: There is no acute intracranial hemorrhage or mass effect. Mild diffuse volume loss is within the range of normal for patient age. There are small vessel ischemic changes within the periventricular and subcortical white matter, but the normal bland/white matter delineation is maintained. Ventricles: Diffuse prominence of the ventricular system is commensurate with volume loss. Bones/joints: Unremarkable. No acute fracture. Sinuses: Visualized sinuses are unremarkable. No fluid levels. Mastoid air cells: Visualized mastoid air cells are well aerated. Soft tissues: There is left inferior frontal soft tissue injury. IMPRESSION: No acute intracranial hemorrhage. Electronically signed by: Melania Watt On 10/02/2019 10:28:14 AM
--- NOTE | 2019-10-02 10:46 | REP ---
CHEST X-RAY: Sitting AP view. HISTORY: Altered mental status. COMPARISON CHEST X-RAY: June 09, 2019. FINDINGS: Monitoring electrodes are seen. There is an old healed fracture of the right clavicle and multiple old healed rib fractures are noted on the right. There are multiple displaced rib fractures on the left with some adjacent areas of pleural thickening. There is a distal clavicle fracture on the left. These left-sided fractures are in interval change when compared with the June 09, 2019 study and imply recent trauma. There is no evidence of pneumothorax. Mediastinum is not traumatically widened. The aorta is tortuous. Heart is not enlarged. No infiltrate is seen in the lung sage. IMPRESSION: 1. Old right clavicle and multiple old right rib fractures. 2. Multiple recent rib fractures on the left with a recent distal clavicle fracture on the left. There is pleural thickening along the left superior and lateral chest wall implying recent trauma. 3. Otherwise no acute disease. Electronically Signed by Sukhdeep Gonzales MD 10/02/2019 05:56 P
--- NOTE | 2019-10-02 10:52 | REPVR ---
PROCEDURE INFORMATION: Exam: CT Cervical Spine Without Contrast Exam date and time: 10/02/2019 10:13 AM Age: 69 years old Clinical indication: Injury or trauma; Injury history: Siezure; Initial encounter; Blunt trauma; Additional info: Altered mental status TECHNIQUE: Imaging protocol: Computed tomography images of the cervical spine without contrast. Radiation optimization: All CT scans at this facility use at least one of these dose optimization techniques: automated exposure control; mA and/or kV adjustment per patient size (includes targeted exams where dose is matched to clinical indication); or iterative reconstruction. COMPARISON: CT Spine,cervical w/o contrast 07/18/2019 11:33 AM FINDINGS: Vertebrae: There is straightening of the normal cervical lordosis superiorly. There is a mild T3 ventral compression fracture. Discs/Spinal canal/Neural foramina: There is moderate to severe intervertebral disc space loss at C5/6. There is multilevel facet hypertrophy. There is multilevel moderate to severe neural foraminal narrowing. No spinal canal stenosis. Other bones/joints: There is a mildly displaced left 1st posterior rib fracture. Soft tissues: Unremarkable. Lungs: Lung apices are normal. IMPRESSION: 1. Mildly displaced left 1st posterior rib fracture. 2. Mild T3 ventral compression fracture of indeterminate acuity. Electronically signed by: Melania Watt On 10/02/2019 10:52:17 AM
[2019-10-02 10:56] LABS: ACETAMINOPHEN LEVEL < 2.0 UG/ML (10.0-30.0); ALBUMIN 3.4 GM/DL (3.2-5.2); ALT/SGPT 174 U/L (12-78); BILIRUBIN,DIRECT 0.4 MG/DL (0.0-0.2); BILIRUBIN,TOTAL 1.1 MG/DL (0.2-1.0); ETHYL ALCOHOL (ETHANOL) < 0.003 % (0.000-0.010); SALICYLATE LEVEL < 1.7 MG/DL (5.0-30.0)
[2019-10-02] MEDS ORDERED: NS 1,000 ML IV ONE (11:15)
[2019-10-02 11:44] LABS: BLOOD UREA NITROGEN 4 MG/DL (7-18); CARBON DIOXIDE LEVEL 18 MEQ/L (21-32); CHLORIDE LEVEL 102 MEQ/L (98-107); CK-MB VALUE MASS 1.1 NG/ML (<3.6); CPK CREATINE PHOSPHOKINASE 104 U/L (39-308); CREATININE FOR GFR 0.98 MG/DL (0.70-1.30); GLOMERULAR FILTRATION RATE > 60.0 (>49); GLUCOSE, FASTING 143 MG/DL (70-100); MB/CK RELATIVE INDEX 1.06 (< OR =4); POTASSIUM SERUM 3.5 MEQ/L (3.5-5.1); SODIUM LEVEL 132 MEQ/L (136-145); TROPONIN I < 0.02 NG/ML (< 0.10)
[2019-10-02] MEDS ORDERED: LORazepam 2 MG/ML VIAL (J2060) IV STA (11:50)
[2019-10-02] MEDS ORDERED: LIDOCAINE W/EPINEPHRINE 1% 20ML VIAL As Ordered ONE (11:56)
[2019-10-02] MEDS ORDERED: MULTIVITAMIN -ADULT INJECTION 10 ML, THIAMINE INJection 100 MG, FOLIC ACID 1 MG in NS 1... IV ONE (12:00)
[2019-10-02] MEDS ORDERED: levETIRAcetam INJection 1,000 MG in D5W 100 ML IV ONE (12:00)
[2019-10-02] MEDS ORDERED: ISOVUE-370 76% 100ML VIAL (Q9967) As Ordered ONE (12:28)
[2019-10-02] MEDS ORDERED: LEVALBUTEROL 1.25 MG/0.5 ML CONCENTRATE NEB NEB PRN (13:15)
[2019-10-02] MEDS ORDERED: BISACODYL 10 MG SUPP PR PRN (13:15)
[2019-10-02] MEDS ORDERED: PERCOCET 5MG/325MG TAB PO PRN ×2 (13:15)
[2019-10-02] MEDS ORDERED: NORCO, ANEXSIA 5/325MG TABLET (HYDROcodone/ACETAMINOPHEN) PO PRN (13:15)
[2019-10-02] MEDS ORDERED: ACETAMINOPHEN TAB 650MG DOSE (2X325MG) PO PRN (13:15)
[2019-10-02] MEDS ORDERED: ONDANSETRON 4MG/2ML VIAL (J2405) IV PRN (13:15)
[2019-10-02] MEDS ORDERED: flumazeniL 0.5 MG/5 ML VIAL As Ordered ONE (13:33)
[2019-10-02] MEDS ORDERED: MIDAZOLAM INJ 2 MG/2 ML VIAL (J2250) As Ordered ONE (13:33)
[2019-10-02] MEDS ORDERED: LIDOCAINE 1% MDV 20ML VIAL As Ordered ONE (13:34)
--- NOTE | 2019-10-02 13:34 | REP ---
CT chest with IV contrast: History: Seizure. Injury in a fall. CT contrast dose: 100 mL of intravenous Isovue 370. Comparison is made with today's chest x-ray. No comparison chest CT study. CT findings: There is a moderate-sized left-sided pneumothorax. This is not visible on today's radiograph. There is no significant hydrothorax. No mediastinal hematoma is seen. There is no CT evidence of aortic injury. No dissection is seen. Some vascular calcification is noted. The pulmonary arterial tree is unremarkable and homogeneously enhances. There is advanced diffuse fatty infiltration of the liver. An opaque a large gallstone is seen. On bone window settings there are multiple left sided of acute rib fractures including the left posterior 1st, 2nd, 3rd, and 4th ribs and the left lateral 3rd, 4th, 6th, and 7th ribs. Impression: Moderate-sized left-sided pneumothorax. Multiple left-sided rib fractures involving rib numbers one through four and six. Findings were telephoned to the referring provider in the ED at the time of the study. Electronically Signed by Sukhdeep Gonzales MD 10/02/2019 05:58 P
--- NOTE | 2019-10-02 13:37 | REP ---
CT abdomen and pelvis with IV but without oral contrast: History: Seizures. History of a fall. CT contrast dose: 100 mL of intravenous Isovue 370. No comparison CT study. CT findings: There is advanced diffuse fatty infiltration of the liver. There is a large calcified gallstone in the gallbladder. The gallstone measures 2.1 cm in greatest diameter. No focal liver lesion is seen. No splenic abnormality is observed. Normal adrenal glands are seen bilaterally. The kidneys enhance symmetrically and are morphologically intact. No abnormality is noted in the pancreas. No retroperitoneal mass or adenopathy is seen. Prostate is enlarged. Urinary bladder is unremarkable. There is left colonic diverticulosis without CT evidence of diverticulitis. No gastrointestinal obstruction is seen. There are some scattered right colonic diverticula as well. Normal appendix is visible in the right lower quadrant. Impression: 1. Marked diffuse fatty infiltration of the liver. 2. Single large calcified gallstone 2.1 cm in diameter. 3. Left colonic and some right colonic diverticulosis without CT evidence of diverticulitis. 4. Prostate enlargement. No fractures seen. Electronically Signed by Sukhdeep Gonzales MD 10/02/2019 05:59 P
[2019-10-02] MEDS ORDERED: LIDOCAINE 1% MDV 20ML VIAL SC ONE (14:00)
[2019-10-02] MEDS ORDERED: MIDAZOLAM INJ 2 MG/2 ML VIAL (J2250) IV ONE (14:00)
--- NOTE | 2019-10-02 15:10 | REP ---
Portable chest x-ray: Semi-erect AP view. 02:49 p.m. film. History: Pneumothorax. Comparison chest x-ray is from 10:15 a.m. earlier on this date. Findings: A left apical chest tube is noted in place. There is no evidence of significant pneumothorax. There is some extrathoracic soft tissue emphysema along the lateral chest wall. Mild plate-like atelectasis is seen in the left base. Old healed rib fracture noted on the right and recent rib fractures noted on the left along with a recent left clavicle fracture. Electronically Signed by Sukhdeep Gonzales MD 10/02/2019 03:01 P
[2019-10-02] MEDS ORDERED: LORazepam 2 MG/ML VIAL (J2060) IV PRN (15:15)
[2019-10-02] MEDS: LEVALBUTEROL 1.25 MG/0.5 ML CONCENTRATE NEB NEB SCH ×2 (15:23→21:05)
[2019-10-02] MEDS: KETOROLAC 30 MG/ML VIAL (J1885) IV SCH ×2 (15:59→21:28)
[2019-10-02] MEDS: KCL 20MEQ IN D5/NS 1000ML 1,000 ML IV SCH (16:00)
--- NOTE | 2019-10-02 16:38 | HPEPDOC ---
General Date of Admission Oct 02, 2019 at 13:13 Date of Service: Oct 02, 2019 Chief Complaint The patient is a 69-year-old male admitted with a reason for visit of Afebrile Seizure. Source: RN/, Old records Exam Limitations: Clinical conditions Associated Symptoms: Unobtainable History of Present Illness Mr. Monique is a 69-year-old male who was brought to the emergency room following a witnessed seizure. Per the ED doctor, Mr. Monique was observed having a tonic- clonic seizure this morning by someone who is known to him. He fell face down and hit the sidewalk at which time he sustained a laceration over the left eye. He was brought to the [facility] ED, he was reportedly post-ictal, but able to interact with the doctor in the ED. However, 3-5 minutes after his arrival, he again had a tonic-clonic seizure. He was treated with 1000 mg of Keppra per neurology, Ativan and [address], chest x-ray were within normal normal limits. C-spine in the ED showed mildly displaced rib fracture; however, a chest CT showed a moderate pneumothorax and multiple rib fractures. Dr. Gonzalez was consulted by the ED for chest tube placement and management. Patient is seen in the PCU this afternoon. He is very lethargic. He reported he cannot remember what happened this morning prior to his seizure and he cannot remember what happened last night or yesterday. In fact, he is unable or unwilling to answer questions when seen. He was able to tell me that right now he feels "all right." Much of the information gained for this HPI is from medical staff and the records. Home Medications Scheduled Levetiracetam (Levetiracetam) 750 Mg Tablet, 750 MG PO BID, (Reported) Allergies Coded Allergies: No Known Drug Allergies (Verified Allergy, Unknown, 07/18/19) Past Medical History Medical History Seizures. Medical noncompliance. Alcohol abuse Hypertension Surgical History Unobtainable Family History Unobtainable Social History Alcohol: other (history of alcohol abuse per the medical record) Unobtainable A-FIB/CHADSVASC A-FIB History Current/History of A-Fib/PAF?: No Current PO Anticoag Therapy: No Age/Risk Factor Scoring CHADSVASC: CHADSVASC Response (Comments) Value Age Risk Factor Age 65-74 years old 1 Gender Risk Factor Male 0 Hx of CHF No 0 Hx of HTN Yes 1 Hx of Stroke/TIA/or VTE No 0 Hx of Diabetes No 0 Hx of Vascular Disease No 0 Total 2 Treatment Treatment ordered: Heparin IV bridge Therapy Review of Systems Other systems Unobtainable Physical Examination General Exam: Positive: Mild Distress (thin elderly male, appears older than stated age. Currently on venturi mask); Negative: Alert, Cooperative Eye Exam: Positive: Other Eye Symptoms (laceration, bruising and bleeding with sutures in place over the left eye) Neck Exam: Positive: Supple; Negative: thyromegaly, Lymphadenopathy Chest Exam: Positive: Rhonchi (bilateral), Other (left sided chest tube in place) Heart Exam: Positive: Tachycardic, Murmurs (2/6 loudest over the apex ); Negative: Rubs Telemetry: Positive: No significant arrhythmia Abdomen Exam: Positive: BS Hypoactive, Soft; Negative: Tenderness Extremity Exam: Positive: Normal pulses; Negative: Clubbing, Cyanosis, Edema, Tenderness, Swelling Skin Exam: Positive: Nl turgor and temperature Neuro Exam: Positive: Normal Speech Other physical findings Exam is extremely limited due to patient condition Vital Signs Vital Signs Date Time Temp Pulse Resp B/P (MAP) Pulse Ox O2 Delivery O2 Flow Rate FiO2 10/02/19 13:21 111 91 10/02/19 13:00 123/68 (86) 10/02/19 11:58 Venturi Mask 12.0 35 10/02/19 09:47 97.0 16 Laboratory Data Labs 24H Laboratory Tests 2 10/02/19 10:02: Immature Granulocyte % (Auto) 1.5, Neutrophils (%) (Auto) 67.6H, Lymphocytes (%) (Auto) 18.3L, Monocytes (%) (Auto) 9.9H, Eosinophils (%) (Auto) 2.0, Basophils (%) (Auto) 0.7, Neutrophils # (Auto) 5.1, Lymphocytes # (Auto) 1.4L, Monocytes # (Auto) 0.7, Eosinophils # (Auto) 0.2, Basophils # (Auto) 0.1, Nucleated Red Blood Cells % (auto) 0.0, Anion Gap 12, Glomerular Filtration Rate > 60.0, Calcium Level 9.0, Total Bilirubin 1.1H, Direct Bilirubin 0.4H, Aspartate Amino Transf (AST/SGOT) 199H, Alanine Aminotransferase (ALT/SGPT) 174H, Alkaline Phosphatase 134H, Total Creatine Kinase 104, Creatine Kinase MB 1.1, Creatine Kinase MB Relative Index 1.06, Troponin I < 0.02, Total Protein 7.0, Albumin 3.4, Albumin/Globulin Ratio 0.94L, Thyroid Stimulating Hormone (TSH) 2.520, Salicylates Level < 1.7L, Acetaminophen Level < 2.0L, Ethyl Alcohol Level < 0.003 10/02/19 10:06: 10/02/19 10:30: POC Glucose (Misc Panel) 144H, POC Sodium (Misc Panel) 133L, POC Potassium (Misc Panel) 3.4L, POC Chloride (Misc Panel) 102, POC Total CO2 (Misc Panel) 16.0L, POC Blood Urea Nitrogen (Misc Panel < 3L, POC Ionized Calcium (Misc Panel) 4.4L, POC Creatinine (Misc Panel) 0.8, POC Hematocrit (Misc Panel) 43.0 CBC/BMP Laboratory Tests 10/02/19 10:02 Assessment/Plan Mr. Monique is a 69-year-old male who was brought to the emergency room following a witnessed seizure. Per the ED doctor, Mr. Monique was observed having a tonic- clonic seizure this morning by someone who is known to him. He fell face down and hit the sidewalk at which time he sustained a laceration over the left eye. He was brought to the [facility] ED, he was reportedly post-ictal, but able to interact with the doctor in the ED. However, 3-5 minutes after his arrival, he again had a tonic-clonic seizure. He was treated with 1000 mg of Keppra per neurology, Ativan and [address], chest x-ray were within normal normal limits. C-spine in the ED showed mildly displaced rib fracture; however, a chest CT showed a moderate pneumothorax and multiple rib fractures. Dr. Gonzalez was consulted by the ED for chest tube placement and management. Patient is seen in the PCU this afternoon. He is very lethargic. He reported he cannot remember what happened this morning prior to his seizure and he cannot remember what happened last night or yesterday. In fact, he is unable or unwilling to answer questions when seen. He was able to tell me that right now he feels "all right." Much of the information gained for this HPI is from medical staff and the records. He has a past medical history which includes: Seizures, Hypertension, Alcohol abuse, Medical noncompliance. CT Chest with contrast Impression: Moderate-sized left-sided pneumothorax. Multiple left-sided rib fractures involving rib numbers one through four and six. PORTABLE CHEST X-RAY IMPRESSION: 1. Old right clavicle and multiple old right rib fractures. 2. Multiple recent rib fractures on the left with a recent distal clavicle fracture on the left. There is pleural thickening along the left superior and lateral chest wall implying recent trauma. 3. Otherwise no acute disease. Tonic-clonic seizure. Reportedly suffered 2 seizures today Secondary to noncompliance to medication vs. alcohol withdrawal. Possibly a combination of the two. Blood alcohol within normal limits Electrolytes within normal limits, except mild hyponatremia - secondary to Keppra vs poor nutritional intake - Keppra levels pending - Encourage regular diet Placed on seizure precaution protocols, given 1000 mg of Keppra IV in the ED, neurology consult per Dr. Campbell - Resume Keppra by mouth tomorrow Seizure protocols in place Pneumothorax, left-sided with multiple rib fractures Left-sided chest tube placed per Dr. Gonzalez. Confirmatory chest x-ray completed. -Serial chest x-rays, per Dr. Gonzalez -Suspect no further intervention required, patient expected to recover Multiple rib fractures -Expected to recover with rest and supportive measures Distal clavicular Fx No evidence of fracture displacement, comminution, shortening, angulation per imaging. Follow clinically; no acute intervention indicated History of Alcohol abuse CIWA protocol in place Medical noncompliance Complicates outpatient care Malnutrition. Secondary to alcohol misuse, probably other social barriers Recommend nutrition counseling once patient is suitably recovered Discussed outpatient management with PFS Attending Addendum: I examined the patient at bedside and discussed plan with PA in detail. I agree with the plan above, as outlined. Plan / VTE VTE Prophylaxis Ordered?: Yes (heparin) CJ RIGGINS PA-C Oct 02, 2019 16:38 CHAITANYA CAMPBELL MD Oct 03, 2019 07:17
[2019-10-02] MEDS: PANTOPRAZOLE 40MG TAB (PROTONIX) PO SCH (16:49)
[2019-10-02] MEDS: MOM 30ML SUSPENSION UDC PO SCH (16:50)
--- NOTE | 2019-10-02 16:50 | CR ---
DATE OF CONSULTATION: 10/02/2019 CONSULTING PHYSICIAN: Dr. Campbell REASON FOR CONSULTATION: Chest tube placement for pneumothorax. HISTORY OF PRESENT ILLNESS: This is a 69-year-old male with a pertinent past medical history of alcohol abuse, multiple alcohol withdrawal seizures, who presented to the emergency room (ER) for witnessed seizure event. He was brought in by a bystander, a warehouse associate driver who knows the patient really well and witnessed Mr. Monique experiencing a seizure episode. When he arrived to the ER, he was having an appropriate conversation with the emergency department (ED) provider and did not state any discomfort or any pain. He initially had a chest x-ray, which showed multiple rib fractures, then he subsequently went down for a CT of the chest, which showed a moderate pneumothorax with some mediastinal shift, as well as the multiple rib fractures. Dr. Gonzalez was called by the ED provider for chest tube placement for management of the pneumothorax. Subsequently during all of this time between his imaging, the patient did experience seizure activity in the ER that lasted about 4-5 minutes, and he was given a dose of Ativan and Keppra. The patient, at the time of our exam, was not very conversant for he was a little loopy from the Ativan. Hospitalist team was called for admission while we transferred the patient to progressive care unit (PCU) for chest tube placement. History was obtained by reviewing previous admission notes for the patient was unable to provide an adequate history. PAST MEDICAL HISTORY: Alcohol abuse. Multiple alcohol withdrawals in the past. HOME MEDICATIONS: - Keppra 750 mg twice a day ALLERGIES: No known drug allergies. FAMILY HISTORY: Unable to obtain for the patient was not appropriately conversing. SOCIAL HISTORY: Current smoker who smokes cigars. SURGICAL HISTORY: History of prostate, testicular surgery and open reduction internal fixation (ORIF) of left tibia-fibula fracture in 2005. REVIEW OF SYSTEMS: Unable to obtain for the patient was not appropriate after Ativan was given in the ER. PHYSICAL EXAMINATION: Vital Signs: Temperature 97.0, pulse 122, blood pressure 123/68 (86), pulse oximetry 92% on 50 of Venturi mask. General: This is a 69-year-old male who is not in acute distress but not appropriately answering questions, does not exhibit any pain or respiratory distress. No tripoding but does have a Venturi mask in place over mouth and not struggling to breathe. HEENT: Ecchymosis, hematoma behind the left eye with a 2 cm length laceration above the left eyebrow that is sutured closed. Dried blood appreciated on the left side of the face all the way down. Unable to open left eye due to the soft tissue edema. Mucous membranes appear dry, very poor dentition. Foul smelling body habitus. Cardiovascular: Tachycardic rhythm. Difficult to assess any audible murmurs or rubs due to adventitious lung sounds. Respiratory: Diffuse rhonchi, right-sided wheezing. Hyperresonant percussion on the left upper and lower. Unable to assess E to A egophony for the patient cannot follow commands really well. Chest: Tender to palpation on the lateral chest wall on the left and the posterior aspect on the left as well. No obvious skin breakdown noted. Abdomen: Soft, nontender. Extremities: Lower extremities - very poor hygiene. Multiple toe fungi appreciated bilaterally but no obvious skin edema. Neurologic: He is alert and oriented to only person and place but not time, and unsure if it is secondary to postictal state or due to the fact that he just got Ativan as well. Will continue to monitor this. LABORATORY: Hematology: WBC 7.5, hemoglobin 14.1, hematocrit 40.3, platelets 227. Chemistry: Sodium 132, potassium 3.5, chloride 102, carbon dioxide 18, anion gap 12, BUN 4, creatinine 0.98, fasting glucose 143, total bilirubin 1.1, direct bilirubin 0.4, AST 199, ALT 174, alkaline phosphatase 134, total creatinine kinase 104, troponin less than 0.02, TSH 2.520. Toxicology: Ethanol level is less than 0.003. Keppra level is currently pending. Tylenol level is less than 2.0, salicylates less than 1.7. IMAGING: Chest x-ray shows old right clavicular and multiple old right rib fractures to multiple recent rib fractures on the left with recent distal clavicular fracture on the left and pleural thickening along the left superior and lateral chest wall, implying recent trauma. There is no pneumothorax documented on the chest x-ray. CT of the chest shows multiple left-sided acute rib fractures of the 1st, 2nd, 3rd, 4th posteriorly as well as left lateral 3rd, 4th, 6th and 7th. He also had a moderate sized left-sided pneumothorax. CT of the head was read as negative intracranial hemorrhage. ASSESSMENT AND PLAN: This is a 69-year-old male with a pertinent past medical history of alcohol abuse and alcohol withdrawal seizures who presented to the ER status post mechanical fall after seizure activity. 1. Moderate size left-sided pneumothorax with multiple left-sided rib fractures. Family was not at bedside to obtain consent. Because he had some mediastinal shift noted on CT of the chest and the amplitude of how significant his moderate pneumothorax is, consent was implied due to the emergency of the situation, and a chest tube was placed at bedside in the PCU by Dr. Gonzalez and I. Will continue with pain control with our standard [place], Percocet and Tylenol even though his liver enzymes are elevated; will monitor this. There will be a significant amount of pain because of the chest tube. I do know that the elevated AST, ALT could be secondary to his alcohol abuse. We have bowel care on board. We will trend his pneumothorax with daily chest x-rays and monitor the patient. 2. Alcohol abuse. Refer to primary team for management. 3. Alcohol withdrawal seizures. Will refer to primary team for management. Thank you for this consultation. We will follow along with this patient while he is admitted.
[2019-10-02] MEDS ORDERED: LORazepam 2 MG TAB PO PRN (20:00)
[2019-10-02] MEDS: DOCUSATE SODIUM 100 MG CAP PO SCH (21:28)
[2019-10-02] MEDS: THIAMINE 100 MG TAB PO SCH (21:28)
[2019-10-02] MEDS: HEPARIN SOD (PORCINE) 5000 UNITS/ML VIAL (J1644 PER 1000UNITS) SC SCH (21:29)
[2019-10-03] VITALS (30 sets, daily range): BP systolic 70–137; BP diastolic 47–78
[2019-10-03] MEDS: LEVALBUTEROL 1.25 MG/0.5 ML CONCENTRATE NEB NEB SCH ×3 (02:41→13:59)
[2019-10-03] MEDS: KETOROLAC 30 MG/ML VIAL (J1885) IV SCH ×3 (02:47→16:07)
[2019-10-03] MEDS: KCL 20MEQ IN D5/NS 1000ML 1,000 ML IV SCH (02:47)
[2019-10-03 05:48] LABS: BASO % 0.2 % (0.0-1.0); EOS % 0.2 % (0.0-3.0); HEMATOCRIT 31.4 % (42.0-52.0); LYMPH # 0.7 10^3/uL (1.5-5.0); LYMPH % 8.5 % (24.0-44.0); MEAN CORPUSCULAR HEMOGLOBIN 33.4 pg (27.0-33.0); MEAN CORPUSCULAR HGB CONC 35.4 g/dl (32.0-36.5); MEAN CORPUSCULAR VOLUME 94.6 fl (80.0-96.0); MONO # 0.7 10^3/uL (0.0-0.8); MONO % 8.4 % (0.0-5.0); NEUTROPHILS # 6.8 10^3/uL (1.5-8.5); NEUTROPHILS % 82.2 % (36.0-66.0); PLATELET COUNT, AUTOMATED 156 10^3/uL (150-450); RED BLOOD COUNT 3.32 10^6/uL (4.30-6.10); WHITE BLOOD COUNT 8.2 10^3/uL (4.0-10.0)
[2019-10-03 05:52] LABS: HEMOGLOBIN 11.1 g/dl (13.5-17.5)
[2019-10-03] MEDS ORDERED: MIDAZOLAM INJ 2 MG/2 ML VIAL (J2250) IV SCH (06:00)
[2019-10-03] MEDS ORDERED: fentaNYL 100 MCG/2 ML INJECTION (J3010) IV SCH (06:00)
[2019-10-03 06:04] LABS: ABG BASE EXCESS -2.8 (-2.0-2.0); ABG HCO3 19.1 MEQ/L (22.0-26.0); ABG O2 SATURATION 99.2 % (95.0-99.0); ABG PARTIAL PRESSURE CO2 25.7 mmHg (35.0-45.0); ABG PARTIAL PRESSURE O2 186.1 mmHg (75.0-100.0); ABG STANDARD HCO3 22.1 MEQ/L (22.0-26.0); ABG TOTAL CO2 19.9 MEQ/L (23.0-31.0)
[2019-10-03 06:14] LABS: BLOOD UREA NITROGEN 3 MG/DL (7-18); CALCIUM LEVEL 7.7 MG/DL (8.8-10.2); CARBON DIOXIDE LEVEL 23 MEQ/L (21-32); CHLORIDE LEVEL 108 MEQ/L (98-107); CREATININE FOR GFR 0.59 MG/DL (0.70-1.30); GLOMERULAR FILTRATION RATE > 60.0 (>49); GLUCOSE, FASTING 122 MG/DL (70-100); POTASSIUM SERUM 3.2 MEQ/L (3.5-5.1); SODIUM LEVEL 136 MEQ/L (136-145)
[2019-10-03 08:54] LABS: MAGNESIUM LEVEL 2.2 MG/DL (1.8-2.4); PHOSPHORUS LEVEL 2.3 MG/DL (2.5-4.9)
[2019-10-03] MEDS: MOM 30ML SUSPENSION UDC PO SCH (09:01)
[2019-10-03] MEDS: MULTIVITAMINS/MINERALS THERAP 1 TAB PO SCH (09:01)
[2019-10-03] MEDS: PANTOPRAZOLE 40MG TAB (PROTONIX) PO SCH (09:01)
[2019-10-03] MEDS: DOCUSATE SODIUM 100 MG CAP PO SCH (09:01)
[2019-10-03] MEDS: POTASSIUM CHLORIDE 10 MEQ SR TABLET PO SCH ×2 (09:02→13:11)
[2019-10-03] MEDS: levETIRAcetam 250MG TABLET (KEPPRA) PO SCH ×2 (09:02→20:34)
[2019-10-03] MEDS: FOLIC ACID 1 MG TAB PO SCH (09:02)
[2019-10-03] MEDS: THIAMINE 100 MG TAB PO SCH ×2 (09:04→20:34)
[2019-10-03] MEDS: HEPARIN SOD (PORCINE) 5000 UNITS/ML VIAL (J1644 PER 1000UNITS) SC SCH (09:05)
--- NOTE | 2019-10-03 09:49 | REP ---
CHEST, TWO VIEWS: Two views of the chest are performed and compared to prior study of 10/02/2019. Left chest tube is again noted in place. No pneumothorax is seen. There appear to be scattered atelectatic changes in the left lung. Right lung is clear. Heart is upper limits of normal in size. Mediastinal silhouette is unremarkable. There are degenerative changes of the spine. Electronically Signed by Marty Staton MD 10/03/2019 03:55 P
[2019-10-03 10:40] LABS: INR 1.22; PROTHROMBIN TIME 15.1 SECONDS (11.8-14.0)
--- NOTE | 2019-10-03 10:41 | IPN ---
DATE OF SERVICE: 10/03/2019 Mr. Monique was seen and examined this morning during bedside rounds. He was actually going down for his chest x-ray this morning. He states that he is feeling much better. He does complain of left sided chest pain where the chest tube is, but nothing too concerning. He denies having any shortness of breath or trouble breathing. He does admit that he cannot cough though, the pain is significant. The patient is satting appropriately on room air. There is no overnight events reported by nursing. PHYSICAL EXAMINATION: Vitals: Temperature 98.5, heart rate 72, respirations 18, blood pressure 118/78 (91), pulse oximetry 100% on room air. Ins: Intake was 120 mL. Output: 500 mL. Balance: -780 mL. General: This is a 69-year-old male who does not appear in any acute distress, appropriately answering questions. Does not appear in respiratory distress, but unable to take deep breath due to pain. Breathing appropriately on room air. HEENT: Ecchymosis and hematoma behind the left eye, 2 cm laceration above the left eyebrow sutured closed. Dried blood appreciated on the hair. Left eye can be opened. Visually can see, but slightly blurry according to patient. No lacerations on the conjunctiva. Cardiovascular: Regular rate and rhythm. No audible murmurs, rubs or gallops. Respiratory: Upper respiratory rhonchi appreciated due to secretions in the upper airways. Unable to take deep inhalations due to pain. No E to A egophony. No dullness to percussion. Hyperresonance to percussion has improved. Chest: Tender to palpation on the left lateral chest wall. Ecchymosis appreciated over the left shoulder blade posteriorly. No discharge or foul smell appreciated over the chest tube site on the left anterior. Extremities: No lower extremity edema. Neurologic: Alert and oriented times three. LABORATORIES: Hematology: WBC 8.2, hemoglobin 11.1, hematocrit 31.4, platelets 156. Chemistry: Sodium 136, potassium 3.2, chloride 108, carbon dioxide 23, BUN 3, creatinine 0.59. IMAGING: Chest x-ray from 10/03/2019 shows chest tube is placed posteriorly in an adequate position. Pneumothorax has resolved. Minimal subcutaneous emphysema appreciated near the lateral edge near the shoulders. Costophrenic angles appear well, there is not much blunting in appearance. Heart size is adequate. Trachea is midline. No mediastinal widening. Multiple rib fractures can be noted. ASSESSMENT AND PLAN: This is a 69-year-old male with a pertinent past medical history of alcohol abuse and alcohol withdrawal seizures who presented to the ER for post mechanical fall after seizure activity. 1. Moderate size left-sided pneumothorax with multiple left-sided rib fractures. Chest tube is in place and attached to a PleurX chamber on suction. He had very minimal output. The pneumothorax resolved, which can be seen on chest x-ray and clinical exam. The patient does complain of having a significant amount of pain. He is unable to generate a good cough to help clear out his upper respiratory secretions. He does have incentive spirometry and PEP therapy in front of him, which patient is unable to completely do for he states he is in pain and it is not controlled with by mouth narcotics. Recommend getting anesthesia to place in an epidural for pain control. We will need to get coagulation profile prior to getting the epidural placed. Will continue with bowel care as prescribed. Once the epidural is placed, we will hold narcotics and put in a Mei until the epidural is discontinued. 2. Alcohol abuse. Will check phosphorus levels, known alcoholics are known to have low phosphorus levels. Will refer to primary team to replete appropriately. 3. Alcohol withdrawal seizures. He is on CIWA protocol with Samuel and Domo on board. Will continue as per recommendation from primary team. Will continue to follow along with the patient while he is admitted.
[2019-10-03] MEDS ORDERED: fentaNYL 100 MCG/2 ML INJECTION (J3010) As Ordered ONE (12:49)
[2019-10-03] MEDS ORDERED: MIDAZOLAM INJ 2 MG/2 ML VIAL (J2250) As Ordered ONE (12:49)
[2019-10-03] MEDS: K-PHOS NEUTRAL 250MG TABLET (SOD.PHOSPHATE/POT.PHOSPHATE) PO SCH ×3 (13:12→20:34)
[2019-10-03] MEDS ORDERED: LIDOCAINE 1% MDV 20ML VIAL As Ordered ONE (13:24)
[2019-10-03] MEDS ORDERED: FENTANYL 2MCG/ML BUPIVACAINE 0.0625% NACL 250ML IV BAG As Ordered ONE (13:27)
[2019-10-03] MEDS: FENTANYL/BUPIVACAINE/NACL BAG 250 ML EPIDURAL SCH (14:30)
--- NOTE | 2019-10-03 14:31 | RO ---
DATE OF PROCEDURE: 10/02/2019 PREPROCEDURE DIAGNOSES: Left pneumothorax and multiple rib fractures. POSTPROCEDURE DIAGNOSES: Left pneumothorax and multiple rib fractures. PROCEDURE: Insertion of left anterior superior chest tube. SURGEON: Pee Gonzalez MD ETCHER PHOTOENGRAVING: Felicitas Gilliam DO ANESTHESIA: PROCEDURE: Under satisfactory moderate sedation achieved with 2 mg of Versed, the patient was prepped and draped in the usual sterile fashion. The first intercostal space was infiltrated with 1% lidocaine over the second rib. An incision was made and a tunnel was created in the chest. A #20 chest tube was placed and directed towards the apex. Secured to the chest wall with #2 Tevdek suture. Connected to the Pleur-evac. The patient tolerated the procedure well and a chest x-ray is pending.
[2019-10-03] MEDS ORDERED: diphenhydrAMINE INJ 50MG/ML VIAL (J1200) IV PRN (15:00)
[2019-10-03] MEDS ORDERED: EPIDURAL/PCA KEYS XX PRN (15:00)
[2019-10-03] MEDS ORDERED: ONDANSETRON 4MG/2ML VIAL (J2405) IV PRN (15:00)
[2019-10-03] MEDS ORDERED: PHENYLEPHRINE INJ 10MG/ML VIAL (J2370) IV ONE (15:00)
[2019-10-03] MEDS ORDERED: NALOXONE INJ 0.4 MG/1 ML VIAL (J2310) IV PRN (15:00)
[2019-10-03] MEDS ORDERED: WALLBOXKEY XX PRN (15:00)
[2019-10-03] MEDS ORDERED: METOCLOPRAMIDE INJ 10MG/2ML VIAL (J2765) IV PRN (15:00)
[2019-10-03] MEDS ORDERED: SODIUM CHLORIDE 0.9% 1000ML IV ONE (15:15)
--- NOTE | 2019-10-03 15:40 | IPNPDOC ---
Date Seen The patient was seen on 10/03/19. Progress Note SUBJECTIVE: 69-year-old male, past medical history of seizure disorder, alcohol abuse who was admitted for seizure and left-sided pneumothorax. Seizure, likely due to alcohol withdrawal versus medication noncompliance. Patient had multiple acute and chronic rib fractures, displaced, likely the causative agent for pneumothorax, underwent chest tube placement by thoracic surgery. Patient seen in the morning, more alert and awake, without any complaints at this time, reports mild chest discomfort at the chest tube site. Patient having minimal chest tube bloody drainage, no air leak noted. Patient denies any nausea, vomiting, abdominal pain or diarrhea. 10 point review of system is negative except for above PHYSICAL EXAMINATION: VITAL SIGNS: Please see below. GENERAL: No distress HEENT: Normocephalic, atraumatic, moist mucous membranes NECK: Supple CARDIOVASCULAR EXAMINATION: S1, S2, no murmurs RESPIRATORY EXAMINATION: Limited anteriorly, diminished on the left side, poor air movement due to deep inspiration ABDOMINAL EXAMINATION: Soft, nontender, nondistended, positive bowel sounds EXTREMITIES: Range of motion intact SKIN: No rash NEUROLOGICAL EXAMINATION: no focal deficits PSYCHIATRIC EXAMINATION: Calm and cooperative LABORATORY DATA, IMAGING STUDIES, MICROBIOLOGY: Please see below. ASSESSMENT AND PLAN: 69-year-old male with history of alcohol abuse and seizure disorder, was admitted for seizure, rib fractures and pneumothorax. PROBLEMS: 1. Pneumothorax: Likely cause by displaced rib fracture, status post chest tube placement by thoracic surgery, no air leak at this time, minimal chest tube output, morning x-ray without pneumothorax. Further management as per thoracic surgery, plan for epidural later today. 2. Seizure disorder: Reports good compliance, although unreliable, no further seizure episodes since admission, continue Keppra 750 mg twice a day, seizure precautions. 3. alcohol abuse: [Unable to clarify, she drinks at this time, [facility] protocol. DVT prophylaxis: Heparin subcutaneous GI prophylaxis: Not needed VS, I&O, 24H, [place] Vital Signs/I&O Vital Signs Date Time Temp Pulse Resp B/P (MAP) Pulse Ox O2 Delivery O2 Flow Rate FiO2 10/03/19 14:15 66 20 91/59 (70) 99 Nasal Cannula 3 10/03/19 12:00 97.9 10/02/19 14:50 45 I&O- Last 24 Hours up to 6 AM 10/03/19 06:00 Intake Total 1150 ml Output Total 250 ml Balance 900 ml Laboratory Data 24H LABS Laboratory Tests 2 10/03/19 05:29: Immature Granulocyte % (Auto) 0.5, Neutrophils (%) (Auto) 82.2H, Lymphocytes (%) (Auto) 8.5L, Monocytes (%) (Auto) 8.4H, Eosinophils (%) (Auto) 0.2, Basophils (%) (Auto) 0.2, Neutrophils # (Auto) 6.8, Lymphocytes # (Auto) 0.7L, Monocytes # (Auto) 0.7, Eosinophils # (Auto) 0.0, Basophils # (Auto) 0.0, Nucleated Red Blood Cells % (auto) 0.0, Anion Gap 5L, Glomerular Filtration Rate > 60.0, Calcium Level 7.7L, Phosphorus Level 2.3L, Magnesium Level 2.2 10/03/19 05:49: Blood Gas Bicarbonate Standard 22.1, Arterial Blood pH 7.490H, Arterial Blood Partial Pressure CO2 25.7L, Arterial Blood Partial Pressure O2 186.1H, Arterial Blood Total CO2 19.9L, Arterial Blood HCO3 19.1L, Arterial Blood Base Excess - 2.8L, Arterial Blood Oxygen Saturation 99.2H 10/03/19 10:16: Prothrombin Time 15.1H, Prothromb Time International Ratio 1.22 CBC/BMP Laboratory Tests 10/03/19 05:29 CHAITANYA TERRY MD Oct 03, 2019 15:40
[2019-10-03] MEDS ORDERED: NS 500 ML IV ONE (16:45)
[2019-10-03] MEDS ORDERED: PHENYLephrine HCL 500 MCG/5 ML (100MCG/ML) SYRINGE (J2370) ONE (19:14)
[2019-10-04] VITALS (8 sets, daily range): BP systolic 79–148; BP diastolic 60–88
[2019-10-04 06:03] LABS: BASO % 0.4 % (0.0-1.0); EOS # 0.1 10^3/uL (0.0-0.5); EOS % 1.1 % (0.0-3.0); HEMATOCRIT 32.2 % (42.0-52.0); HEMOGLOBIN 11.3 g/dl (13.5-17.5); LYMPH # 0.7 10^3/uL (1.5-5.0); LYMPH % 10.5 % (24.0-44.0); MEAN CORPUSCULAR HEMOGLOBIN 33.4 pg (27.0-33.0); MEAN CORPUSCULAR HGB CONC 35.1 g/dl (32.0-36.5); MEAN CORPUSCULAR VOLUME 95.3 fl (80.0-96.0); MONO # 0.5 10^3/uL (0.0-0.8); MONO % 7.7 % (0.0-5.0); NEUTROPHILS # 5.6 10^3/uL (1.5-8.5); NEUTROPHILS % 79.7 % (36.0-66.0); PLATELET COUNT, AUTOMATED 157 10^3/uL (150-450); RED BLOOD COUNT 3.38 10^6/uL (4.30-6.10)
--- NOTE | 2019-10-04 06:14 | ECGEPIP ---
[facility] - ED Test Date: 2019-10-02 Pat Name: NEFTALI FINCH Department: Room: - Gender: Male [employer]ed [employer] Designer: JAYDA : 1950 Requested By: Lul Winslow Order Number: [id number] Reading MD: Ricardo Luz Measurements Intervals [place] Rate: 116 P: 26 VA: 166 QRS: -26 QRSD: 83 T: 19 QT: 333 QTc: 464 Interpretive Statements SINUS TACHYCARDIA BORDERLINE LEFT AXIS DEVIATION NSTTW ABNORMALITIES SIMILAR TO 07/18/19 Electronically Signed on 10-04-2019 6:13:43 EST by Ricardo Luz
[2019-10-04 06:31] LABS: BLOOD UREA NITROGEN 3 MG/DL (7-18); CALCIUM LEVEL 7.6 MG/DL (8.8-10.2); CARBON DIOXIDE LEVEL 23 MEQ/L (21-32); CHLORIDE LEVEL 105 MEQ/L (98-107); CREATININE FOR GFR 0.61 MG/DL (0.70-1.30); GLOMERULAR FILTRATION RATE > 60.0 (>49); GLUCOSE, FASTING 100 MG/DL (70-100); PHOSPHORUS LEVEL 2.6 MG/DL (2.5-4.9); POTASSIUM SERUM 3.7 MEQ/L (3.5-5.1); SODIUM LEVEL 136 MEQ/L (136-145)
[2019-10-04] MEDS: K-PHOS NEUTRAL 250MG TABLET (SOD.PHOSPHATE/POT.PHOSPHATE) PO SCH ×2 (08:08→17:32)
[2019-10-04] MEDS: MOM 30ML SUSPENSION UDC PO SCH (08:08)
[2019-10-04] MEDS: PANTOPRAZOLE 40MG TAB (PROTONIX) PO SCH (08:09)
[2019-10-04] MEDS: THIAMINE 100 MG TAB PO SCH ×2 (08:09→20:29)
[2019-10-04] MEDS: MULTIVITAMINS/MINERALS THERAP 1 TAB PO SCH (08:09)
[2019-10-04] MEDS: levETIRAcetam 250MG TABLET (KEPPRA) PO SCH ×2 (08:09→20:29)
[2019-10-04] MEDS: FOLIC ACID 1 MG TAB PO SCH (08:09)
[2019-10-04] MEDS: KETOROLAC 30 MG/ML VIAL (J1885) IV SCH ×4 (08:10→22:34)
--- NOTE | 2019-10-04 09:21 | REP ---
Chest x-ray: Two views. History: Pneumothorax. Chest tube. Comparison study: October 03, 2019. Findings: Left chest tube remains in place. There is no visible pneumothorax. A small amount of extrathoracic gas is seen on the left decreased in extent. Several rib fractures are noted on the left as before. There is plate-like atelectasis in the right base today. An epidural catheter is seen in place along with EKG monitoring electrodes. Heart is not enlarged. No new infiltrate. Impression: Somewhat increased atelectasis changes right base. No new infiltrate. Electronically Signed by Sukhdeep Gonzales MD 10/04/2019 08:00 P
--- NOTE | 2019-10-04 09:58 | IPN ---
DATE OF SERVICE: 10/04/2019 Mr. Monique was seen and examined this morning. He states that his pain is actually kind of controlled. He rates his pain a 4 out of 10, but when I asked him to take deep inhalations or cough, he says he can't as there is a significant amount of pain. He then rates the pain as 6 or 7 out of 10. He currently has an epidural in place that is running at 6 mL/hr. Overnight, the patient had to have his epidural replaced where the catheter broke yesterday. No other overnight events were reported by nursing and the patient has no other complaints today. PHYSICAL EXAMINATION: Vitals: Temperature 98.9, pulse 95, respirations 14, blood pressure 137/88 (104), pulse oximetry 94% on 1 liter nasal cannula. Intake total 2810 mL. Output total 885 mL. Balance of +1925 mL. Chest tube drainage in the last 24 hours is 55 mL. Two bowel movements and two voids. General: This is a very pleasant, 69-year-old male who does not appear in acute distress, appropriately answering questions, who does not appear in respiratory distress as well, who is speaking appropriately in complete sentences. HEENT: Ecchymosis and hematoma behind the left eye with a 2 cm laceration above the left eyebrow with sutures in place. Hematoma and ecchymosis is improving. He is able to open the eye a little bit better. Visualization is improved, blurriness has improved as well. No laceration or skin changes found on the conjunctiva on the left. Both eyes are equal, round and reactive to light . Right eye with no skin breakdown or hematoma noted. Cardiovascular: Regular rate and rhythm. No audible murmurs, rubs or gallops. Respiratory: Upper airway respiratory rhonchi appreciated bilaterally due to secretions. Continues unable to take deep inhalations due to pain. Unable to assess aeration in the bases bilaterally. There is no dullness to percussion. Chest: Still continues to complain of tenderness to the lateral chest wall. There is slight ecchymosis appreciated over the left shoulder blade posteriorly. Minimal tenderness appreciated over the ecchymosis as well. No discharge or foul smell appreciated over the chest tube site in the left anterior chest wall. Extremities: No lower extremity edema. Neurologic: Alert and oriented times three. LABORATORIES: WBC 7.0, hemoglobin 11.3, hematocrit 32.2, platelets 157. Chemistry: Sodium 136, potassium 3.7, chloride 105, carbon dioxide 23, anion gap 8, BUN 3, creatinine 0.61, fasting glucose 100, calcium 7.6, phosphorus 2.6. IMAGING: Chest x-ray done early this morning which shows left chest tube in appropriate place between the first intercostal space facing posteriorly, no pneumothorax can be noed. Subcutaneous emphysema has improved. No blunting of the costophrenic angles appreciated. On the lateral view, there is increased consolidation underneath the pleural fissure that is kind of elevated. I don't know if it is between the two fissures, inoculation blood versus pleural fluid. Official read is currently pending. Will discuss with Dr. Gonzalez if we need to get further imaging or if this is a fluid inoculation secondary to his recent trauma from his rib fractures. ASSESSMENT AND PLAN: This is a 69-year-old male with a pertinent past medical history of alcohol abuse and alcohol withdrawal seizures who presented to the ER status post mechanical fall after seizure activity. 1. Moderate size left-sided pneumothorax with multiple left-sided rib fractures status post chest tube placement. 2. Alcohol abuse. 3. Alcohol withdrawal seizures. We will continue with the chest tube in place. A chest x-ray from today versus yesterday does show some changes with some inoculation under the pleural fissure. Unsure if this is fluid versus blood inoculated between the fissures. Possibly will need to have further imaging such as a CT of the chest. At the current time, he is satting appropriately on room air at 98% to 95%. We have increased his epidural to get him better pain control. I have reiterated the importance of using the incentive spirometry and PEP therapy. After discussing with Dr. Gonzalez and possibly further imaging, will see if we will do anything to the chest x-ray changes. At the current time, will just continue with the current plan. Also, will continue with Toradol and epidural for pain control.
[2019-10-04] MEDS ORDERED: POTASSIUM CHLORIDE 10 MEQ SR TABLET PO ONE (10:00)
[2019-10-04] MEDS: FENTANYL/BUPIVACAINE/NACL BAG 250 ML EPIDURAL SCH (16:09)
--- NOTE | 2019-10-04 19:56 | IPNPDOC ---
Date Seen The patient was seen on 10/04/19. Progress Note SUBJECTIVE: 69-year-old male, past medical history of seizure disorder, alcohol abuse who was admitted for seizure and left-sided pneumothorax. Seizure, likely due to alcohol withdrawal versus medication noncompliance. Patient had multiple acute and chronic rib fractures, displaced, likely the causative agent for pneumothorax, underwent chest tube placement by thoracic surgery. Patient seen in the morning, more alert and awake, without any complaints at this time, reports mild chest discomfort at the chest tube site. Patient having minimal chest tube bloody drainage, no air leak noted. Patient denies any nausea, vomiting, abdominal pain or diarrhea. 10/04/19 No acute events overnight, comfortable in bed, pain well controlled, continues to have mild/moderate L sided chest pain, small amount of serosanguinous drainage from chest tube, no air leak noted. 10 point review of system is negative except for above PHYSICAL EXAMINATION: VITAL SIGNS: Please see below. GENERAL: No distress HEENT: Normocephalic, atraumatic, moist mucous membranes NECK: Supple CARDIOVASCULAR EXAMINATION: S1, S2, no murmurs RESPIRATORY EXAMINATION: Limited anteriorly, poor air movement, slightly diminished on the L side ABDOMINAL EXAMINATION: Soft, nontender, nondistended, positive bowel sounds EXTREMITIES: Range of motion intact SKIN: No rash NEUROLOGICAL EXAMINATION: no focal deficits PSYCHIATRIC EXAMINATION: Calm and cooperative LABORATORY DATA, IMAGING STUDIES, MICROBIOLOGY: Please see below. ASSESSMENT AND PLAN: 69-year-old male with history of alcohol abuse and seizure disorder, was admitted for seizure, rib fractures and pneumothorax. PROBLEMS: 1. Pneumothorax: Likely cause by displaced rib fracture, status post chest tube placement by thoracic surgery, no air leak, minimal chest tube output, pain controlled with epidural, low grade temp, started Levaquin. 2. Seizure disorder: continue Keppra 750 mg twice a day, seizure precautions. 3. alcohol abuse: [facility] protocol. DVT prophylaxis: Heparin subcutaneous GI prophylaxis: Protonix VS, I&O, 24H, Fishbone Vital Signs/I&O Vital Signs Date Time Temp Pulse Resp B/P (MAP) Pulse Ox O2 Delivery O2 Flow Rate FiO2 10/04/19 17:39 99.8 10/04/19 11:40 104 16 109/67 (81) 90 Room Air 10/04/19 07:21 1.0 10/02/19 14:50 45 I&O- Last 24 Hours up to 6 AM 10/04/19 05:59 Intake Total 2990 ml Output Total 935 ml Balance 2055 ml Laboratory Data 24H LABS Laboratory Tests 2 10/04/19 05:40: Immature Granulocyte % (Auto) 0.6, Neutrophils (%) (Auto) 79.7H, Lymphocytes (%) (Auto) 10.5L, Monocytes (%) (Auto) 7.7H, Eosinophils (%) (Auto) 1.1, Basophils (%) (Auto) 0.4, Neutrophils # (Auto) 5.6, Lymphocytes # (Auto) 0.7L, Monocytes # (Auto) 0.5, Eosinophils # (Auto) 0.1, Basophils # (Auto) 0.0, Nucleated Red Blood Cells % (auto) 0.0, Anion Gap 8, Glomerular Filtration Rate > 60.0, Calcium Level 7.6L, Phosphorus Level 2.6 CBC/BMP Laboratory Tests 10/04/19 05:40 CHAITANYA TERRY MD Oct 04, 2019 19:56
[2019-10-04] MEDS: HEPARIN SOD (PORCINE) 5000 UNITS/ML VIAL (J1644 PER 1000UNITS) SQ SCH (20:30)
[2019-10-04] MEDS: LevoFLOXacin 750 MG TABLET PO SCH (20:34)
[2019-10-05 04:00] VITALS: BP 108/71
[2019-10-05 05:46] LABS: BASO # 0.1 10^3/uL (0.0-0.2); BASO % 0.6 % (0.0-1.0); EOS # 0.2 10^3/uL (0.0-0.5); EOS % 2.1 % (0.0-3.0); HEMOGLOBIN 11.9 g/dl (13.5-17.5); LYMPH # 1.2 10^3/uL (1.5-5.0); LYMPH % 12.7 % (24.0-44.0); MEAN CORPUSCULAR HEMOGLOBIN 33.1 pg (27.0-33.0); MEAN CORPUSCULAR HGB CONC 33.1 g/dl (32.0-36.5); MEAN CORPUSCULAR VOLUME 100.3 fl (80.0-96.0); MONO # 0.7 10^3/uL (0.0-0.8); MONO % 7.5 % (0.0-5.0); NEUTROPHILS # 6.9 10^3/uL (1.5-8.5); NEUTROPHILS % 76.4 % (36.0-66.0); PLATELET COUNT, AUTOMATED 178 10^3/uL (150-450); RED BLOOD COUNT 3.59 10^6/uL (4.30-6.10); WHITE BLOOD COUNT 9.1 10^3/uL (4.0-10.0)
[2019-10-05] MEDS: KETOROLAC 30 MG/ML VIAL (J1885) IV SCH ×3 (06:01→17:32)
[2019-10-05 06:09] LABS: BLOOD UREA NITROGEN 5 MG/DL (7-18); CALCIUM LEVEL 7.8 MG/DL (8.8-10.2); CARBON DIOXIDE LEVEL 18 MEQ/L (21-32); CHLORIDE LEVEL 105 MEQ/L (98-107); CREATININE FOR GFR 0.81 MG/DL (0.70-1.30); GLOMERULAR FILTRATION RATE > 60.0 (>49); GLUCOSE, FASTING 88 MG/DL (70-100); PHOSPHORUS LEVEL 2.4 MG/DL (2.5-4.9); POTASSIUM SERUM 3.6 MEQ/L (3.5-5.1); SODIUM LEVEL 132 MEQ/L (136-145)
[2019-10-05 07:21] VITALS: BP 112/72
[2019-10-05] MEDS ORDERED: POTASSIUM CHLORIDE 10 MEQ SR TABLET PO ONE (08:15)
--- NOTE | 2019-10-05 08:56 | REP ---
Chest x-ray: Two views. History: Chest tube. Comparison study: October 04, 2019. Findings: The previously noted left apical chest tube is again seen in place. There is no discernible pneumothorax. There is pleural thickening along the left lateral chest wall in this patient with a several rib fractures. The right lung remains essentially clear. Minimal plate-like atelectasis right base appears improved. No new infiltrate. Electronically Signed by Sukhdeep Gonzales MD 10/05/2019 08:47 A
[2019-10-05] MEDS: FOLIC ACID 1 MG TAB PO SCH (10:36)
[2019-10-05] MEDS: K-PHOS NEUTRAL 250MG TABLET (SOD.PHOSPHATE/POT.PHOSPHATE) PO SCH ×3 (10:37→21:56)
[2019-10-05] MEDS: PANTOPRAZOLE 40MG TAB (PROTONIX) PO SCH (10:37)
[2019-10-05] MEDS: THIAMINE 100 MG TAB PO SCH (10:37)
[2019-10-05] MEDS: MULTIVITAMINS/MINERALS THERAP 1 TAB PO SCH (10:37)
[2019-10-05] MEDS: levETIRAcetam 250MG TABLET (KEPPRA) PO SCH ×2 (10:38→21:56)
[2019-10-05] MEDS: MOM 30ML SUSPENSION UDC PO SCH (10:38)
[2019-10-05] MEDS: HEPARIN SOD (PORCINE) 5000 UNITS/ML VIAL (J1644 PER 1000UNITS) SQ SCH ×2 (10:39→21:57)
[2019-10-05] MEDS ORDERED: SLF 3 ML SYR IV PRN (10:45)
[2019-10-05 12:00] VITALS: BP 114/76
[2019-10-05] MEDS: SLF 3 ML SYR IV SCH ×2 (13:28→21:57)
[2019-10-05 15:24] VITALS: BP 116/73
[2019-10-05] MEDS: FENTANYL/BUPIVACAINE/NACL BAG 250 ML EPIDURAL SCH (17:33)
[2019-10-05 20:00] VITALS: BP 116/70
--- NOTE | 2019-10-05 21:22 | IPNPDOC ---
Date Seen The patient was seen on 10/05/19. Progress Note SUBJECTIVE: 69-year-old male, past medical history of seizure disorder, alcohol abuse who was admitted for seizure and left-sided pneumothorax. Seizure, likely due to alcohol withdrawal versus medication noncompliance. Patient had multiple acute and chronic rib fractures, displaced, likely the causative agent for pneumothorax, underwent chest tube placement by thoracic surgery. Patient seen in the morning, more alert and awake, without any complaints at this time, reports mild chest discomfort at the chest tube site. Patient having minimal chest tube bloody drainage, no air leak noted. Patient denies any nausea, vomiting, abdominal pain or diarrhea. 10/04/19 No acute events overnight, comfortable in bed, pain well controlled, continues to have mild/moderate L sided chest pain, small amount of serosanguinous drainage from chest tube, no air leak noted. 10/05/19 No acute events, comfortable in bed, pain is very well controlled, no dyspnea, having mild cough. 10 point review of system is negative except for above PHYSICAL EXAMINATION: VITAL SIGNS: Please see below. GENERAL: No distress HEENT: Normocephalic, atraumatic, moist mucous membranes NECK: Supple CARDIOVASCULAR EXAMINATION: S1, S2, no murmurs RESPIRATORY EXAMINATION: slightly diminished on the L side, no wheezing ABDOMINAL EXAMINATION: Soft, nontender, nondistended, positive bowel sounds EXTREMITIES: Range of motion intact SKIN: No rash NEUROLOGICAL EXAMINATION: no focal deficits PSYCHIATRIC EXAMINATION: Calm and cooperative LABORATORY DATA, IMAGING STUDIES, MICROBIOLOGY: Please see below. ASSESSMENT AND PLAN: 69-year-old male with history of alcohol abuse and seizure disorder, was admitted for seizure, rib fractures and pneumothorax. PROBLEMS: 1. Pneumothorax: Likely cause by displaced rib fracture, status post chest tube placement by thoracic surgery, no air leak, chest tube output remains low, pain controlled with epidural, continue Levaquin. 2. Seizure disorder: continue Keppra 750 mg twice a day, seizure precautions. 3. alcohol abuse: [facility] protocol. DVT prophylaxis: Heparin subcutaneous GI prophylaxis: Protonix VS, I&O, 24H, Fishbone Vital Signs/I&O Vital Signs Date Time Temp Pulse Resp B/P (MAP) Pulse Ox O2 Delivery O2 Flow Rate FiO2 10/05/19 20:00 97.6 108 18 116/70 (85) 100 Room Air 10/04/19 07:21 1.0 10/02/19 14:50 45 I&O- Last 24 Hours up to 6 AM 10/05/19 06:00 Intake Total 2460 ml Output Total 1742 ml Balance 718 ml Laboratory Data 24H LABS Laboratory Tests 2 10/05/19 05:28: Immature Granulocyte % (Auto) 0.7, Neutrophils (%) (Auto) 76.4H, Lymphocytes (%) (Auto) 12.7L, Monocytes (%) (Auto) 7.5H, Eosinophils (%) (Auto) 2.1, Basophils (%) (Auto) 0.6, Neutrophils # (Auto) 6.9, Lymphocytes # (Auto) 1.2L, Monocytes # (Auto) 0.7, Eosinophils # (Auto) 0.2, Basophils # (Auto) 0.1, Nucleated Red Blood Cells % (auto) 0.0, Anion Gap 9, Glomerular Filtration Rate > 60.0, Calcium Level 7.8L, Phosphorus Level 2.4L CBC/BMP Laboratory Tests 10/05/19 05:28 CHAITANYA TERRY MD Oct 05, 2019 21:22
--- NOTE | 2019-10-05 21:53 | IPN ---
DATE: 10/05/2019 Mr. Monique was seen and examined during bedside rounds this evening. He has no complaints today. He has ambulated around the halls with no problems. He noticed his cough and his chest pain has improved significantly since yesterday. He continues to have the epidural in his back and no overnight events were reported by nursing or the patient. PHYSICAL EXAMINATION: Vital signs: Temperature 97.1, pulse 95, respirations 18, blood pressure 116/73 (MAP 87), pulse oximetry 99% on room air. Intake total yesterday was 2160, output total was 2187, balance of negative 27. Chest tube drainage in the last 24 hours was 98 mL with two bowel movements. General: This is a very pleasant 69-year-old male who does not appear in acute distress, appropriately answering questions, not using any accessory muscles, speaking in complete sentences, with the legs over the side of the bed. HEENT: Ecchymosis with hematoma behind the left eye, continues to improve. He still has the 2 cm laceration above the left eyebrow. Able to see eyes equally. Pupils are equal, round and reactive. No skin breakdown or hematoma noted over the right eye. Cardiovascular: Tachycardic rate but regular rhythm on telemetry. No audible murmurs, rubs, or gallops. Respiratory: Clear to auscultation bilaterally, exception of bibasilar crackles at the bases, which is improvement significantly since yesterday. No tenderness on palpation of the chest wall. Chest: There is a significant amount of ecchymosis appreciated over the left shoulder and the anterior chest wall and the posterior chest wall, but no open skin wounds noted with the exception of the chest tube over the anterior chest wall. Extremities: No lower extremity edema. Neurologic: Alert, oriented times three. LABORATORY: WBC 9.1, hemoglobin 11.9, hematocrit 36.0, platelets 178. Chemistry: Sodium 132, potassium 3.6, chloride 105, carbon dioxide 18, anion gap 9, BUN 5, creatinine 0.81, fasting glucose 88, calcium 7.8, phosphorous 2.4. Chest x-ray: Left chest tube seen in the apex. Several rib fractures continue to be noted. No pneumothorax noted. Very minimal atelectasis at the bases but no infiltrates. ASSESSMENT AND PLAN: This is a 69-year-old male with a pertinent past medical history of alcohol abuse and alcohol withdrawal seizures who presented to the emergency room (ER), status post mechanical fall after seizure activity. Impression: 1. Moderate sized left-sided pneumothorax with multiple left-sided rib fractures, status post chest tube placement. 2. Alcohol abuse. 3. Alcohol withdrawal seizures. PLAN: We will remove the chest tube this morning. He has less than 100 mL of output in the last 24 hours. The patient does not have an air leak on the PleurX chamber. We will continue with the epidural for a total of 5 days since the day of placement, which was on 10/03/2019. The epidural was placed because of his rib fractures, so it will not be weaned even though the chest tube is being removed tonight. Will continue with the incentive spirometry and PEP as recommended and while with the epidural, continue the Mei and bowel care as prescribed. Will continue to follow the patient along with you while he is admitted.
[2019-10-05] MEDS: LevoFLOXacin 750 MG TABLET PO SCH (21:56)
[2019-10-06] VITALS (7 sets, daily range): BP systolic 112–165; BP diastolic 74–98
[2019-10-06] MEDS: KETOROLAC 30 MG/ML VIAL (J1885) IV SCH ×4 (00:24→18:15)
[2019-10-06] MEDS: SLF 3 ML SYR IV SCH ×3 (05:55→21:03)
[2019-10-06 06:10] LABS: BASO # 0.1 10^3/uL (0.0-0.2); BASO % 0.8 % (0.0-1.0); EOS # 0.3 10^3/uL (0.0-0.5); EOS % 3.8 % (0.0-3.0); HEMATOCRIT 31.4 % (42.0-52.0); HEMOGLOBIN 10.6 g/dl (13.5-17.5); LYMPH # 0.9 10^3/uL (1.5-5.0); LYMPH % 13.5 % (24.0-44.0); MEAN CORPUSCULAR HEMOGLOBIN 32.9 pg (27.0-33.0); MEAN CORPUSCULAR HGB CONC 33.8 g/dl (32.0-36.5); MEAN CORPUSCULAR VOLUME 97.5 fl (80.0-96.0); MONO # 0.9 10^3/uL (0.0-0.8); MONO % 13.1 % (0.0-5.0); NEUTROPHILS # 4.4 10^3/uL (1.5-8.5); NEUTROPHILS % 67.7 % (36.0-66.0); PLATELET COUNT, AUTOMATED 205 10^3/uL (150-450); RED BLOOD COUNT 3.22 10^6/uL (4.30-6.10); WHITE BLOOD COUNT 6.5 10^3/uL (4.0-10.0)
[2019-10-06 06:34] LABS: BLOOD UREA NITROGEN 4 MG/DL (7-18); CARBON DIOXIDE LEVEL 25 MEQ/L (21-32); CHLORIDE LEVEL 104 MEQ/L (98-107); CREATININE FOR GFR 0.64 MG/DL (0.70-1.30); GLOMERULAR FILTRATION RATE > 60.0 (>49); GLUCOSE, FASTING 98 MG/DL (70-100); MAGNESIUM LEVEL 1.9 MG/DL (1.8-2.4); SODIUM LEVEL 134 MEQ/L (136-145)
[2019-10-06] MEDS: MOM 30ML SUSPENSION UDC PO SCH (08:10)
[2019-10-06] MEDS: FOLIC ACID 1 MG TAB PO SCH (08:10)
[2019-10-06] MEDS: K-PHOS NEUTRAL 250MG TABLET (SOD.PHOSPHATE/POT.PHOSPHATE) PO SCH ×2 (08:10→15:32)
[2019-10-06] MEDS: HEPARIN SOD (PORCINE) 5000 UNITS/ML VIAL (J1644 PER 1000UNITS) SQ SCH ×2 (08:11→21:01)
[2019-10-06] MEDS: PANTOPRAZOLE 40MG TAB (PROTONIX) PO SCH (08:11)
[2019-10-06] MEDS: MULTIVITAMINS/MINERALS THERAP 1 TAB PO SCH (08:11)
[2019-10-06] MEDS: levETIRAcetam 250MG TABLET (KEPPRA) PO SCH ×2 (08:11→21:01)
--- NOTE | 2019-10-06 09:03 | REP ---
Chest x-ray: Two views. History: Chest tube. Comparison chest x-ray: October 05, 2019. Findings: An epidural catheter is noted in place. The left pleural drainage catheter has been withdrawn. There is no evidence of pneumothorax. Volume loss and pleural thickening persists on the left with multiple displaced rib fractures. No new infiltrate noted on the right. Cardiomediastinal silhouette is unchanged. Electronically Signed by Sukhdeep Gonzales MD 10/06/2019 08:54 A
--- NOTE | 2019-10-06 10:33 | IPN ---
DATE OF SERVICE: 10/06/2019 Mr. Monique was seen and examined this morning during bedside rounds. Yesterday, he had his chest tube removed and had no issues overnight. He continues to have the epidural in place running at 6 mg per hour. His pain is relatively controlled. He is able to cough and use his incentive spirometry with no problem. He had one bowel movement yesterday and does not feel constipated. He has been ambulating around the halls and the room with no problem. There was no overnight events reported by nursing or telemetry. PHYSICAL EXAMINATION: Vital Signs: Temperature 97.9, pulse 98, respirations 20, blood pressure 131/95 (107), pulse oximetry 99% on room air. Intake total at 2100 mL, output total 1260 mL, balance positive 839 mL. Two voids and one bowel movement yesterday. General: This is a very pleasant 69-year-old male who does not appear in acute distress, appropriately answering questions, laying comfortably in bed, no respiratory muscle use. HEENT: Ecchymosis with hematoma behind the left eye significantly improving. Healing 2 cm laceration above the left eyebrow with sutures in place. Pupils are equal, round and reactive. No skin breakdown or hematoma noted over the right eye. Extraocular movements intact bilaterally. No pain movement as well. Cardiovascular: Regular rate and rhythm. No audible murmurs, rubs or gallops. Respiratory: Clear to auscultate bilaterally. Continues to have bibasilar crackles at the base and very minimal tenderness with palpation of the chest wall. Chest: Significant amount of ecchymosis over the anterior the shoulder and the posterior on the side. No obvious skin breakdown. Dressing was removed this morning. Chest tube insertion site looks clear. There is small erythematous redness around the insertion site but no tenderness to palpation there. No swelling. No induration. No drainage noted. Extremities: No lower extremity edema. Neurologic: Alert, oriented times three. LABORATORIES: Hematology: WBC 6.5, hemoglobin 10.6, hematocrit 31.4, platelets 205. Chemistry: Sodium 134, potassium 4.0, chloride 104, carbon dioxide 25, BUN 4, creatinine 0.64, fasting glucose 98, calcium 8.0, magnesium 1.9. Chest x-ray from 10/06/2019: No pneumothorax noted. Left pleural drainage catheter has been removed. Continues to have multiple left-sided rib fractures. Some are displaced as well. No new infiltrates at the bases. Costophrenic angles can be visualized bilaterally. ASSESSMENT AND PLAN: This is a 69-year-old male with a pertinent past medical history of alcohol abuse and alcohol withdrawal seizures who presented to the emergency room (ER) status post mechanical fall after seizure activity. IMPRESSION: 1. Moderate sized left-sided pneumothorax with multiple left-sided fractures, status post chest tube placement. 2. Alcohol abuse. 3. Alcohol withdrawal seizures. PLAN: We removed the dressing this morning. He currently has the epidural in place for pain control for his rib fractures, which he will continue for another two more days, possible removal is Tuesday. Continue with incentive spirometry and positive expiratory pressure (PEP) therapy as recommended to help prevent atelectasis. We will continue with the Mei due to the epidural and bowel care as prescribed. From a cardiothoracic point of view, the patient is currently stable status post chest tube removal. We will continue to follow along with you while he is admitted.
--- NOTE | 2019-10-06 12:00 | IPNPDOC ---
Date Seen The patient was seen on 10/06/19. Progress Note SUBJECTIVE: 69-year-old male, past medical history of seizure disorder, alcohol abuse who was admitted for seizure and left-sided pneumothorax. Seizure, likely due to alcohol withdrawal versus medication noncompliance. Patient had multiple acute and chronic rib fractures, displaced, likely the causative agent for pneumothorax, underwent chest tube placement by thoracic surgery. Patient seen in the morning, more alert and awake, without any complaints at this time, reports mild chest discomfort at the chest tube site. Patient having minimal chest tube bloody drainage, no air leak noted. Patient denies any nausea, vomiting, abdominal pain or diarrhea. 10/04/19 No acute events overnight, comfortable in bed, pain well controlled, continues to have mild/moderate L sided chest pain, small amount of serosanguinous drainage from chest tube, no air leak noted. 10/05/19 No acute events, comfortable in bed, pain is very well controlled, no dyspnea, having mild cough. 10/06/19 Patient comfortable in bed, chest tube was removed yesterday, morning x-ray without recurrence of pneumothorax, having mild chest/shoulder discomfort, no other complaints. 10 point review of system is negative except for above PHYSICAL EXAMINATION: VITAL SIGNS: Please see below. GENERAL: No distress HEENT: Normocephalic, atraumatic, moist mucous membranes NECK: Supple CARDIOVASCULAR EXAMINATION: S1, S2, no murmurs RESPIRATORY EXAMINATION: Basilar rhonchi, no wheezing ABDOMINAL EXAMINATION: Soft, nontender, nondistended, positive bowel sounds EXTREMITIES: Range of motion intact SKIN: No rash NEUROLOGICAL EXAMINATION: no focal deficits PSYCHIATRIC EXAMINATION: Calm and cooperative LABORATORY DATA, IMAGING STUDIES, MICROBIOLOGY: Please see below. ASSESSMENT AND PLAN: 69-year-old male with history of alcohol abuse and seizure disorder, was admitted for seizure, rib fractures and pneumothorax. PROBLEMS: 1. Pneumothorax: Likely cause by displaced rib fracture, status post chest tube placement by thoracic surgery, chest tube was removed yesterday, pain controlled with epidural, continue Levaquin. Tentatively planned for discharge on Tuesday after removal of epidural. 2. Seizure disorder: continue Keppra 750 mg twice a day, seizure precautions. 3. alcohol abuse: [facility] protocol. DVT prophylaxis: Heparin subcutaneous GI prophylaxis: Protonix VS, I&O, 24H, Fishbone Vital Signs/I&O Vital Signs Date Time Temp Pulse Resp B/P (MAP) Pulse Ox O2 Delivery O2 Flow Rate FiO2 10/06/19 08:00 97.9 98 20 130/95 (107) 97 Room Air 10/04/19 07:21 1.0 10/02/19 14:50 45 I&O- Last 24 Hours up to 6 AM 10/06/19 06:00 Intake Total 1500 ml Output Total 1356 ml Balance 144 ml Laboratory Data 24H LABS Laboratory Tests 2 10/06/19 05:45: Immature Granulocyte % (Auto) 1.1, Neutrophils (%) (Auto) 67.7H, Lymphocytes (%) (Auto) 13.5L, Monocytes (%) (Auto) 13.1H, Eosinophils (%) (Auto) 3.8H, Basophils (%) (Auto) 0.8, Neutrophils # (Auto) 4.4, Lymphocytes # (Auto) 0.9L, Monocytes # (Auto) 0.9H, Eosinophils # (Auto) 0.3, Basophils # (Auto) 0.1, Nucleated Red Blood Cells % (auto) 0.0, Anion Gap 5L, Glomerular Filtration Rate > 60.0, Calcium Level 8.0L, Magnesium Level 1.9 CBC/BMP Laboratory Tests 10/06/19 05:45 CHAITANYA TERRY MD Oct 06, 2019 12:00
[2019-10-06] MEDS: FENTANYL/BUPIVACAINE/NACL BAG 250 ML EPIDURAL SCH (15:32)
[2019-10-06] MEDS: LevoFLOXacin 750 MG TABLET PO SCH (21:02)
[2019-10-07] MEDS: KETOROLAC 30 MG/ML VIAL (J1885) IV SCH ×5 (00:54→23:11)
[2019-10-07 04:00] VITALS: BP 135/83
[2019-10-07] MEDS: SLF 3 ML SYR IV SCH ×3 (05:21→23:12)
[2019-10-07 05:45] LABS: BASO # 0.1 10^3/uL (0.0-0.2); BASO % 0.7 % (0.0-1.0); EOS # 0.3 10^3/uL (0.0-0.5); EOS % 4.5 % (0.0-3.0); HEMATOCRIT 32.2 % (42.0-52.0); HEMOGLOBIN 10.9 g/dl (13.5-17.5); LYMPH # 1.2 10^3/uL (1.5-5.0); LYMPH % 16.6 % (24.0-44.0); MEAN CORPUSCULAR HEMOGLOBIN 33.5 pg (27.0-33.0); MEAN CORPUSCULAR HGB CONC 33.9 g/dl (32.0-36.5); MEAN CORPUSCULAR VOLUME 99.1 fl (80.0-96.0); MONO % 13.6 % (0.0-5.0); NEUTROPHILS # 4.6 10^3/uL (1.5-8.5); NEUTROPHILS % 63.4 % (36.0-66.0); PLATELET COUNT, AUTOMATED 262 10^3/uL (150-450); RED BLOOD COUNT 3.25 10^6/uL (4.30-6.10); WHITE BLOOD COUNT 7.3 10^3/uL (4.0-10.0)
[2019-10-07 06:26] LABS: BLOOD UREA NITROGEN 3 MG/DL (7-18); CALCIUM LEVEL 8.4 MG/DL (8.8-10.2); CARBON DIOXIDE LEVEL 27 MEQ/L (21-32); CHLORIDE LEVEL 102 MEQ/L (98-107); CREATININE FOR GFR 0.72 MG/DL (0.70-1.30); GLOMERULAR FILTRATION RATE > 60.0 (>49); GLUCOSE, FASTING 96 MG/DL (70-100); PHOSPHORUS LEVEL 3.9 MG/DL (2.5-4.9); POTASSIUM SERUM 4.1 MEQ/L (3.5-5.1); SODIUM LEVEL 134 MEQ/L (136-145)
[2019-10-07 08:00] VITALS: BP 137/90
[2019-10-07] MEDS: HEPARIN SOD (PORCINE) 5000 UNITS/ML VIAL (J1644 PER 1000UNITS) SQ SCH ×2 (08:17→20:47)
[2019-10-07] MEDS: PANTOPRAZOLE 40MG TAB (PROTONIX) PO SCH (08:17)
[2019-10-07] MEDS: levETIRAcetam 250MG TABLET (KEPPRA) PO SCH ×2 (08:17→20:47)
[2019-10-07] MEDS: FOLIC ACID 1 MG TAB PO SCH (08:17)
[2019-10-07] MEDS: MOM 30ML SUSPENSION UDC PO SCH (08:17)
[2019-10-07] MEDS: MULTIVITAMINS/MINERALS THERAP 1 TAB PO SCH (08:17)
--- NOTE | 2019-10-07 08:34 | REP ---
Chest x-ray: Two views. History: Chest tube. Comparison chest x-ray: October 06, 2019. Findings: Epidural catheter and EKG monitoring electrodes are seen. There is blunting of the posterior pleural angle on the left and there is moderate pleural thickening adjacent to displaced left-sided rib fractures. There is some volume loss in the left hemithorax as a result. These findings are unchanged. No visible pneumothorax. No new infiltrate. Electronically Signed by Sukhdeep Gonzales MD 10/07/2019 08:26 A
[2019-10-07 12:00] VITALS: BP 130/74
--- NOTE | 2019-10-07 14:45 | IPN ---
DATE: 10/07/2019 Mr. Monique was seen and examined this morning during bedside rounds. There was no overnight events reported by nursing. The patient has been tolerating his epidural which is currently running at 6 mcg per hour. He is able to cough and use incentive spirometry with no problem. He has had bowel movements and does not feel constipated. He continues to ambulate around the room and the halls with no problems as well. PHYSICAL EXAMINATION: Vitals: Temperature 97.4, heart rate 80, respirations 16, blood pressure 135/83, pulse oximetry 98% on room air. Intake total 1452. Output total 2850. Net balance of negative 1398 with 2 bowel movements. General: This is a very pleasant 69-year-old male who does no appear to be in any acute distress. Appropriately answering questions, laying comfortably in bed. No respiratory muscle use. HEENT: Ecchymosis and hematoma behind the left eye. Significantly improved. Healing laceration above the left eyebrow with multiple sutures in place. Pupils equal, round and reactive. No pain with extraocular movement and it is intact bilaterally. Cardiovascular: Regular rate and rhythm. No audible murmurs, rubs or gallops. Respirations: Clear to auscultate bilaterally. Very minimal bibasilar crackles at the bases. Continues to have very minimal tenderness with palpation of the chest. Chest: Significant ecchymosis appreciated over the anterior of the left shoulder and the posterior side. No obvious skin breakdown. Chest tube site appears well. No discharge noted. Extremities: No lower extremity edema. Neurologic: Alert and oriented times three. LABORATORY: WBC 7.3, hemoglobin 10.9, hematocrit 39.2, platelets 262. Chemistry: Sodium 134, potassium 4.1, chloride 102, carbon dioxide 27, BUN 3, creatinine 0.72. Glucose 96. Chest x-ray: Epidural catheter in place. Continues to have blunting of the posterior pleural angle on the left. Continues to have moderate pleural thickening on the adjacent from the left side of rib fractures. Findings are unchanged. No visible pneumothorax. ASSESSMENT AND PLAN: This is a 69-year-old male with a pertinent past medical history of alcohol abuse with alcohol withdrawal seizures who presented status post mechanical fall after seizure activity resulting in a left-sided pneumothorax and multiple left-sided fractures. IMPRESSION: 1. Moderate sized left-sided pneumothorax with multiple left-sided fractures, status post chest tube placement. 2. Alcohol abuse. 3. Alcohol withdrawal seizures. PLAN: Patient has been tolerating the chest tube removal yesterday. He is saturating appropriately on room air. Will continue with the epidural catheter for his rib fractures until October 07 and then will start the weaning process on Tuesday. Will continue with incentive spirometry and PEP therapy as recommended as well as Mei and bowel care as prescribed. From a cardiothoracic surgery standpoint he is currently stable status post chest tube removal. We will continue to follow along with the patient while he is admitted. My faculty preceptor for this patient encounter was physically present during the encounter and was fully available. All aspects of the patient interview, examination, medical decision making process, and medical care plan development were reviewed and approved by the faculty preceptor. The faculty preceptor is aware and concurs with the plan as stated in the body of this note and will attest to such by his/her co-signature.
[2019-10-07] MEDS: FENTANYL/BUPIVACAINE/NACL BAG 250 ML EPIDURAL SCH (15:49)
[2019-10-07 16:00] VITALS: BP 111/77
--- NOTE | 2019-10-07 19:09 | IPNPDOC ---
Date Seen The patient was seen on 10/07/19. Progress Note SUBJECTIVE: 69-year-old male, past medical history of seizure disorder, alcohol abuse who was admitted for seizure and left-sided pneumothorax. Seizure, likely due to alcohol withdrawal versus medication noncompliance. Patient had multiple acute and chronic rib fractures, displaced, likely the causative agent for pneumothorax, underwent chest tube placement by thoracic surgery. Patient seen in the morning, more alert and awake, without any complaints at this time, reports mild chest discomfort at the chest tube site. Patient having minimal chest tube bloody drainage, no air leak noted. Patient denies any nausea, vomiting, abdominal pain or diarrhea. 10/04/19 No acute events overnight, comfortable in bed, pain well controlled, continues to have mild/moderate L sided chest pain, small amount of serosanguinous drainage from chest tube, no air leak noted. 10/05/19 No acute events, comfortable in bed, pain is very well controlled, no dyspnea, having mild cough. 10/06/19 Patient comfortable in bed, chest tube was removed yesterday, morning x-ray without recurrence of pneumothorax, having mild chest/shoulder discomfort, no other complaints. 10/07/19 Comfortable in bed, no acute events overnight, no complaints at this time, pain is well controlled, homeless, will require placement if possible. 10 point review of system is negative except for above PHYSICAL EXAMINATION: VITAL SIGNS: Please see below. GENERAL: No distress HEENT: Normocephalic, atraumatic, moist mucous membranes NECK: Supple CARDIOVASCULAR EXAMINATION: S1, S2, no murmurs RESPIRATORY EXAMINATION: Basilar rhonchi, no wheezing ABDOMINAL EXAMINATION: Soft, nontender, nondistended, positive bowel sounds EXTREMITIES: Range of motion intact SKIN: No rash NEUROLOGICAL EXAMINATION: no focal deficits PSYCHIATRIC EXAMINATION: Calm and cooperative LABORATORY DATA, IMAGING STUDIES, MICROBIOLOGY: Please see below. ASSESSMENT AND PLAN: 69-year-old male with history of alcohol abuse and seizure disorder, was admitted for seizure, rib fractures and pneumothorax. PROBLEMS: 1. Pneumothorax: Likely caused by displaced rib fracture, status post chest tube placement by thoracic surgery, chest tube has been removed, f/u x-ray without recurrence of pneumothorax, pain controlled with epidural, continue Levaquin. Patient is homeless and will require placement, PFS to discuss/provide options. 2. Seizure disorder: continue Keppra 750 mg twice a day, seizure precautions. DVT prophylaxis: Heparin subcutaneous GI prophylaxis: Protonix VS, I&O, 24H, Fishbone Vital Signs/I&O Vital Signs Date Time Temp Pulse Resp B/P (MAP) Pulse Ox O2 Delivery O2 Flow Rate FiO2 10/07/19 16:00 97.9 99 24 111/77 (88) 98 Room Air 10/04/19 07:21 1.0 10/02/19 14:50 45 I&O- Last 24 Hours up to 6 AM 10/07/19 06:00 Intake Total 1452 ml Output Total 3125 ml Balance -1673 ml Laboratory Data 24H LABS Laboratory Tests 2 10/07/19 05:22: Immature Granulocyte % (Auto) 1.2, Neutrophils (%) (Auto) 63.4, Lymphocytes (%) (Auto) 16.6L, Monocytes (%) (Auto) 13.6H, Eosinophils (%) (Auto) 4.5H, Basophils (%) (Auto) 0.7, Neutrophils # (Auto) 4.6, Lymphocytes # (Auto) 1.2L, Monocytes # (Auto) 1.0H, Eosinophils # (Auto) 0.3, Basophils # (Auto) 0.1, Nucleated Red Blood Cells % (auto) 0.0, Anion Gap 5L, Glomerular Filtration Rate > 60.0, Calcium Level 8.4L, Phosphorus Level 3.9# CBC/BMP Laboratory Tests 10/07/19 05:22 CHAITANYA TERRY MD Oct 07, 2019 19:09
[2019-10-07 20:00] VITALS: BP 110/72
[2019-10-07] MEDS: LevoFLOXacin 750 MG TABLET PO SCH (20:47)
[2019-10-08] VITALS: BP 111/78
[2019-10-08 04:00] VITALS: BP 143/86
[2019-10-08 05:13] LABS: BASO # 0.1 10^3/uL (0.0-0.2); BASO % 0.9 % (0.0-1.0); EOS # 0.3 10^3/uL (0.0-0.5); EOS % 5.2 % (0.0-3.0); HEMATOCRIT 30.3 % (42.0-52.0); HEMOGLOBIN 10.3 g/dl (13.5-17.5); LYMPH # 1.1 10^3/uL (1.5-5.0); LYMPH % 17.9 % (24.0-44.0); MEAN CORPUSCULAR HEMOGLOBIN 33.2 pg (27.0-33.0); MEAN CORPUSCULAR VOLUME 97.7 fl (80.0-96.0); MONO # 0.9 10^3/uL (0.0-0.8); MONO % 14.7 % (0.0-5.0); NEUTROPHILS # 3.8 10^3/uL (1.5-8.5); PLATELET COUNT, AUTOMATED 275 10^3/uL (150-450); WHITE BLOOD COUNT 6.4 10^3/uL (4.0-10.0)
[2019-10-08 05:38] LABS: BLOOD UREA NITROGEN 3 MG/DL (7-18); CARBON DIOXIDE LEVEL 23 MEQ/L (21-32); CHLORIDE LEVEL 104 MEQ/L (98-107); CREATININE FOR GFR 0.74 MG/DL (0.70-1.30); GLOMERULAR FILTRATION RATE > 60.0 (>49); GLUCOSE, FASTING 100 MG/DL (70-100); PHOSPHORUS LEVEL 3.9 MG/DL (2.5-4.9); POTASSIUM SERUM 3.6 MEQ/L (3.5-5.1); SODIUM LEVEL 134 MEQ/L (136-145)
[2019-10-08] MEDS: KETOROLAC 30 MG/ML VIAL (J1885) IV SCH ×3 (05:41→18:59)
[2019-10-08] MEDS: SLF 3 ML SYR IV SCH ×3 (05:41→20:40)
[2019-10-08] MEDS ORDERED: POTASSIUM CHLORIDE 10 MEQ SR TABLET PO ONE (07:30)
[2019-10-08 08:00] VITALS: BP 130/79
--- NOTE | 2019-10-08 08:46 | IPN ---
DATE: 10/08/2019 This is now Mr. Monique's fifth epidural day. His pain is being fairly well controlled although he is complaining of soreness. He is able to get up and around, however. His vital signs show a T-max of 97.8 with a heart rate that ranges between 99 and 87 and is sinus rhythm, respiratory rate of 16 to 24 without the use of accessory muscles, who is 98% saturated on room air, and whose blood pressure is ranging between 143/86 to 110/72. His intake and output the past 24 hours has been recorded as 1775 in and 1975 out for a negativity of 200 mL. Chest tube was removed yesterday. Weight today is 71.8 kilos compared to 71.6 kilos yesterday. On physical examination he has coarse rhonchi and crackles in the right lower hemithorax. Most of these clear with coughing. There is some bronchophony however in the right lower hemithorax with E-to-A egophony. Percussion note is full to the diaphragm. Cardiac exam is without murmurs, clicks, gallops or rubs. I cannot feel his point of maximal impulse (PMI). S1 and S2 are normal. His heart sounds are very distant. Abdomen is tympanitic and slightly distended, but nontender. Bowel sounds are positive. There is no hepatomegaly. No costovertebral angle (CVA) tenderness. Extremities show no pretibial edema. No calf tenderness. No differential swelling of the upper extremities. Skin is warm, dry and perfused without cyanosis or mottling including that of the nail beds and the knees. Neck is supple. There is no jugular venous distention. No subcutaneous emphysema. Trachea is midline. Mouth shows his mucous membranes to be pink and moist. Lips and commissures are without lesions. There is no thrush. Eyes show his pupils to be equal, reactive. Extraocular motors are intact. Sclera nonicteric. Neuro shows II through XII intact, along with gross motor and gross sensation intact. Gait is not tested. Psychiatric shows him to be awake and alert, oriented times three with appropriate mood, affect and conversational. His white count today is 6.4 with hemoglobin and hematocrit of 10.3 and 30.3 respectively, and a platelet count of 235 and stable. Differential shows 16% neutrophils, 17% lymphocytes, 14% monocytes. There are no immature forms, no toxic granulations. His sodium is marginally low at 134 with a potassium of 3.6. BUN and creatinine at 3 and 0.74 with a glucose of 100 and a calcium of 8.0. Phosphorous is 3.9. His chest x-ray is still pending and I will see it later this morning. IMPRESSION: 1. Left pneumothorax with multiple rib fractures, left side. 2. Alcohol abuse. 3. Alcohol withdrawal. 4. Seizures, controlled. PLAN AND DISCUSSION: Yesterday's chest x-ray shows the pneumothorax to be resolved. We will check and x-ray later today. This is now the fifth day of his epidural and that will have to be weaned. We will therefore wean it at 1 mL per hour until off and then eventually give him p.o. pain medications. He may need to be supplemented with a Duragesic patch if the pain is not readily controlled.
--- NOTE | 2019-10-08 09:00 | REP ---
Chest x-ray: Two views. History: Chest tube. Comparison chest x-ray: October 07, 2019. Findings: There is a pleural thickening along the left lateral chest wall and at the left base essentially unchanged. Left pleural angle is blunted. An epidural catheter is seen along with EKG electrodes. Multiple left-sided rib fractures are again noted. No new infiltrate. Right lung remains clear. Electronically Signed by Sukhdeep Gonzales MD 10/08/2019 08:52 A
[2019-10-08] MEDS: levETIRAcetam 250MG TABLET (KEPPRA) PO SCH ×2 (09:34→20:39)
[2019-10-08] MEDS: MOM 30ML SUSPENSION UDC PO SCH (09:34)
[2019-10-08] MEDS: FOLIC ACID 1 MG TAB PO SCH (09:34)
[2019-10-08] MEDS: MULTIVITAMINS/MINERALS THERAP 1 TAB PO SCH (09:34)
[2019-10-08] MEDS: PANTOPRAZOLE 40MG TAB (PROTONIX) PO SCH (09:34)
[2019-10-08] MEDS: HEPARIN SOD (PORCINE) 5000 UNITS/ML VIAL (J1644 PER 1000UNITS) SQ SCH ×2 (09:34→20:39)
[2019-10-08 12:00] VITALS: BP 123/75
[2019-10-08 16:00] VITALS: BP 132/76
[2019-10-08] MEDS: PERCOCET 5MG/325MG TAB PO PRN ×2 (16:16→20:39)
--- NOTE | 2019-10-08 18:36 | IPNPDOC ---
Date Seen The patient was seen on 10/08/19. Progress Note SUBJECTIVE: 69-year-old male, past medical history of seizure disorder, alcohol abuse who was admitted for seizure and left-sided pneumothorax. Seizure, likely due to alcohol withdrawal versus medication noncompliance. Patient had multiple acute and chronic rib fractures, displaced, likely the causative agent for pneumothorax, underwent chest tube placement by thoracic surgery. Patient seen in the morning, more alert and awake, without any complaints at this time, reports mild chest discomfort at the chest tube site. Patient having minimal chest tube bloody drainage, no air leak noted. Patient denies any nausea, vomiting, abdominal pain or diarrhea. 10/04/19 No acute events overnight, comfortable in bed, pain well controlled, continues to have mild/moderate L sided chest pain, small amount of serosanguinous drainage from chest tube, no air leak noted. 10/05/19 No acute events, comfortable in bed, pain is very well controlled, no dyspnea, having mild cough. 10/06/19 Patient comfortable in bed, chest tube was removed yesterday, morning x-ray without recurrence of pneumothorax, having mild chest/shoulder discomfort, no other complaints. 10/07/19 Comfortable in bed, no acute events overnight, no complaints at this time, pain is well controlled, homeless, will require placement if possible. 10/08/19 Patient seen in the morning, comfortable in bed, without any complaints, epidural to be removed today. Patient is homeless, will require placement. 10 point review of system is negative except for above PHYSICAL EXAMINATION: VITAL SIGNS: Please see below. GENERAL: No distress HEENT: Normocephalic, atraumatic, moist mucous membranes NECK: Supple CARDIOVASCULAR EXAMINATION: S1, S2, no murmurs RESPIRATORY EXAMINATION: Left lower lobe rhonchi, no wheezing ABDOMINAL EXAMINATION: Soft, nontender, nondistended, positive bowel sounds EXTREMITIES: Range of motion intact SKIN: No rash NEUROLOGICAL EXAMINATION: no focal deficits PSYCHIATRIC EXAMINATION: Calm and cooperative LABORATORY DATA, IMAGING STUDIES, MICROBIOLOGY: Please see below. ASSESSMENT AND PLAN: 69-year-old male with history of alcohol abuse and seizure disorder, was admitted for seizure, rib fractures and pneumothorax. PROBLEMS: 1. Pneumothorax: Likely caused by displaced rib fracture, status post chest tube placement by thoracic surgery, chest tube has been removed, f/u x-ray without recurrence of pneumothorax, epidural to be removed today followed by oral pain regimen, continue Levaquin. Patient is homeless and will require placement, PFS to arrange. 2. Seizure disorder: continue Keppra 750 mg twice a day, seizure precautions. DVT prophylaxis: Heparin subcutaneous GI prophylaxis: Protonix VS, I&O, 24H, Fishbone Vital Signs/I&O Vital Signs Date Time Temp Pulse Resp B/P (MAP) Pulse Ox O2 Delivery O2 Flow Rate FiO2 10/08/19 16:46 19 97 Room Air 10/08/19 12:00 97.2 105 123/75 (91) 10/08/19 08:00 2.0 10/02/19 14:50 45 I&O- Last 24 Hours up to 6 AM 10/08/19 06:00 Intake Total 2496 ml Output Total 1925 ml Balance 571 ml Laboratory Data 24H LABS Laboratory Tests 2 10/08/19 04:38: Immature Granulocyte % (Auto) 1.3, Neutrophils (%) (Auto) 60.0, Lymphocytes (%) (Auto) 17.9L, Monocytes (%) (Auto) 14.7H, Eosinophils (%) (Auto) 5.2H, Basophils (%) (Auto) 0.9, Neutrophils # (Auto) 3.8, Lymphocytes # (Auto) 1.1L, Monocytes # (Auto) 0.9H, Eosinophils # (Auto) 0.3, Basophils # (Auto) 0.1, Nucleated Red Blood Cells % (auto) 0.0, Anion Gap 7L, Glomerular Filtration Rate > 60.0, Calcium Level 8.0L, Phosphorus Level 3.9 CBC/BMP Laboratory Tests 10/08/19 04:38 CHAITANYA TERRY MD Oct 08, 2019 18:36
[2019-10-08 20:11] VITALS: BP 124/82
[2019-10-08] MEDS: LevoFLOXacin 750 MG TABLET PO SCH (20:38)
[2019-10-09] VITALS: BP 147/91
[2019-10-09] MEDS: KETOROLAC 30 MG/ML VIAL (J1885) IV SCH (01:17)
[2019-10-09 04:00] VITALS: BP 137/89
[2019-10-09] MEDS: SLF 3 ML SYR IV SCH ×3 (05:22→20:45)
[2019-10-09] MEDS: PERCOCET 5MG/325MG TAB PO PRN ×3 (05:24→20:43)
[2019-10-09 08:00] VITALS: BP 130/84
[2019-10-09] MEDS: levETIRAcetam 250MG TABLET (KEPPRA) PO SCH ×2 (09:11→20:42)
[2019-10-09] MEDS: HEPARIN SOD (PORCINE) 5000 UNITS/ML VIAL (J1644 PER 1000UNITS) SQ SCH ×2 (09:11→20:42)
[2019-10-09] MEDS: MULTIVITAMINS/MINERALS THERAP 1 TAB PO SCH (09:11)
[2019-10-09] MEDS: FOLIC ACID 1 MG TAB PO SCH (09:11)
[2019-10-09] MEDS: MOM 30ML SUSPENSION UDC PO SCH (09:11)
[2019-10-09] MEDS: PANTOPRAZOLE 40MG TAB (PROTONIX) PO SCH (09:12)
--- NOTE | 2019-10-09 12:39 | REP ---
PA and lateral chest: Comparison is 10/08/2019. The patient has known multiple fractures. There is pleural thickening along the left lateral chest wall. This is unchanged. There is effacement of the left costophrenic angle. This is unchanged. Left lung is otherwise clear. The right lung remains clear. The cardiac size is upper normal. The ish and mediastinum are unremarkable. The epidural catheter has been removed. Impression: There has been interval removal of the epidural catheter. No other significant interval change. Electronically Signed by Marty Islas MD 10/09/2019 12:31 P
--- NOTE | 2019-10-09 12:40 | IPN ---
DATE: 10/09/2019 Mr. Monique's epidural was weaned yesterday, and he is now on oral analgesics. He is now having more pain than he had with the epidural but it is certainly tolerable and he is able to take deep breaths and cough. His vital signs show a maximum temperature (Tmax) of 97.0 with a heart rate that ranges between 94-85 and is sinus rhythm, respiratory rate that is constant at 18, who is 96% saturated on room air, and whose blood pressure is ranging between 137/89-130/84. His intake and output for the past 24 hours has been 1800 in and 1800 out for equality. Weight today is 96.8 kg compared to 91.8 kg yesterday. My suspicion is that today's weight is spurious. His chest tube was removed the day before. On physical examination, he has equal breath sounds on either side. I hear rhonchi which clear with coughing. Percussion note is full to the diaphragm. Cardiac exam is without murmurs, clicks, gallops or rubs. I cannot feel his point of maximal impulse (PMI). S1 and S2 are normal. Abdomen is soft, nontender. Bowel sounds are positive. There is no hepatomegaly and no costovertebral angle (CVA) tenderness. Extremities show no pretibial edema, no calf tenderness. No differential swelling of the upper extremities. Skin is warm, dry and perfused without cyanosis or mottling including that of the nail beds and the knees. Neck is supple. There is no jugular venous distention. No subcutaneous emphysema. Trachea is midline. Mouth shows his mucous membranes to be pink and moist. Lips and commissures are without lesions. There is no thrush. Eyes show the pupils to be equal and reactive. Extraocular motors are intact. Sclera nonicteric. Neurologic shows II-XII intact, along with gross motor and gross sensation intact. Gait is not tested. Psychiatric shows him to be awake and alert, oriented times three with appropriate mood, affect and conversational. His chest x-ray is still pending today. His white count is 6.4 with hemoglobin and hematocrit of 10.3 and 30.3 respectively, with a platelet count of 275. Differential shows 16% neutrophils, 17% lymphocytes, 14% monocytes. There are no immature forms, no toxic granulations. Electrolytes are essentially normal with a marginally low sodium of 134. BUN and creatinine are 3 and 0.74 with a glucose of 100 and a calcium of 8.0. IMPRESSION: 1. Left pneumothorax with multiple rib fractures, left side. 2. Alcohol abuse. 3. Alcohol withdrawal. 4. Seizures, controlled. PLAN AND DISCUSSION: His epidural has been weaned. I will look at the chest x-ray later today. If there are no major changes, I will withdraw from his case. The essence of his recovery is indeed pain control with regard to his rib fractures. His pneumothorax has resolved.
[2019-10-09 16:00] VITALS: BP 119/78
[2019-10-09 20:00] VITALS: BP 127/72
[2019-10-10] MEDS: PERCOCET 5MG/325MG TAB PO PRN ×3 (05:38→20:14)
[2019-10-10] MEDS: SLF 3 ML SYR IV SCH ×3 (05:39→20:06)
[2019-10-10 08:00] VITALS: BP 132/76
[2019-10-10] MEDS: HEPARIN SOD (PORCINE) 5000 UNITS/ML VIAL (J1644 PER 1000UNITS) SQ SCH ×2 (08:59→20:06)
[2019-10-10] MEDS: MOM 30ML SUSPENSION UDC PO SCH (08:59)
[2019-10-10] MEDS: MULTIVITAMINS/MINERALS THERAP 1 TAB PO SCH (09:01)
[2019-10-10] MEDS: PANTOPRAZOLE 40MG TAB (PROTONIX) PO SCH (09:01)
[2019-10-10] MEDS: FOLIC ACID 1 MG TAB PO SCH (09:01)
[2019-10-10] MEDS: levETIRAcetam 250MG TABLET (KEPPRA) PO SCH ×2 (09:01→20:05)
[2019-10-10] MEDS: NORCO, ANEXSIA 5/325MG TABLET (HYDROcodone/ACETAMINOPHEN) PO PRN (09:02)
--- NOTE | 2019-10-10 09:10 | REP ---
CT of the chest without IV contrast: Comparisons are the chest CT with IV contrast dated 10/02 2019 and plain film PA and lateral chest of 10/09/2019. There is a moderate pleural fluid collection in the left hemithorax as a change from the comparison CT, compatible with the clinical history of hemothorax. There is no pneumothorax on the current study. The previous left pneumothorax has resolved. Multiple left rib fractures involving ribs one through seven are again identified. The ribs 3456 air fracture posteriorly and anteriorly. There is pleural thickening adjacent to the rib fractures. There is minor dependent atelectasis in the lung sage. There is no pulmonary contusion. There is no mediastinal hematoma. The unenhanced thoracic aorta is unremarkable. Cardiac size is normal. There is no pericardial effusion. Impression: There is a moderate left pleural fluid collection compatible with the clinical history of hemothorax. There is no pneumothorax. The previous left pneumothorax has resolved. There are multiple left rib fractures as described. Some of the ribs are fractured posteriorly as well as anteriorly. Pleural thickening is noted adjacent to the rib fractures. There is minor dependent atelectasis in the lung sage. Electronically Signed by Marty Islsa MD 10/10/2019 09:01 A
[2019-10-10 15:28] VITALS: BP 125/8
[2019-10-10 20:00] VITALS: BP 133/88
--- NOTE | 2019-10-10 20:08 | IPN ---
DATE: 10/10/2019 Mr. Monique was scheduled to go to medical/surgical today; however, his chest x-ray has been showing an increasing left pleural effusion. It is now approximately one-quarter way up the chest. I think that needs to be drained and I will arrange for him to have a pigtail catheter done in the morning connected to a Pleur-evac with the requisite studies undertaken. He is lying comfortably in bed, although he states that he has a pain of 5 out of 10 now that he no longer has the epidural. Nonetheless, he is in good spirits. His vital signs show a maximum temperature (t-max) of 98.3 with a heart rate that ranges between 104 and 90 in sinus rhythm, respiratory rate that is constant at 18, who is 98% saturated on room air and his blood pressure is ranging between 132/76 to 125/80. His intake and output over the past 24 hours has been recorded as 2635 in and 2050 out for a positivity of 585 mL. He weighs 73.6 kg compared to 71.8 kg yesterday. PHYSICAL EXAMINATION LUNGS: His lungs show nearly normal vesicular sounds with some rhonchi in the left lower hemithorax. He has decreased breath sounds on the left hemithorax. His percussion note is dull at the left base. CARDIAC EXAM: Without murmurs, clicks, gallops or rubs. I cannot feel his point of maximum impulse (PMI). S1, S2 are normal. ABDOMEN: Soft, nontender. Bowel sounds positive. There is no hepatomegaly. No costovertebral angle tenderness. EXTREMITIES: Show no pretibial edema. No calf tenderness. No differential swelling of the upper extremities. SKIN: Warm, dry and perfused without cyanosis or mottling, including that of the nail beds and knees. NECK: Supple. There is no jugular venous distention. No subcutaneous emphysema. Trachea is midline. MOUTH: Shows his mucous membranes to be pink and moist. Lips and commissures without lesions. There is no thrush. EYES: Show his pupils to be equal and reactive. Extraocular motion intact. Sclerae anicteric. NEUROLOGIC: Shows II through XII intact with gross motor and gross sensation intact. Gait is not tested. PSYCHIATRIC: Shows him to be awake and alert, oriented times three with appropriate mood and affect and conversational. LABORATORY DATA His white count today is 6.4 with a hemoglobin and hematocrit of 10.3 and 30.3, respectively. This was after a 2 unit blood transfusion. There are no electrolytes on him today. His electrolytes yesterday showed a sodium of 134 with a potassium of 6 and a BUN and creatinine of 3 and 0.74. His chest x-ray today is described above. IMPRESSION: 1. Left pneumothorax, multiple rib fractures on the left side. 2. Pleural effusion, getting worse over the last couple of days, probably an osmotic hemothorax. 3. Alcohol abuse. 4. Alcohol withdrawal. 5. Seizures, controlled. PLAN/DISCUSSION: As noted above, I will send him for a pigtail catheter tomorrow under ultrasonic guidance. We will run the requisite studies on him. I feel strongly that this needs to be drained as: 1. It will get bigger. 2. It will eventually entrap his lung.
--- NOTE | 2019-10-10 20:38 | IPNPDOC ---
Date Seen The patient was seen on 10/10/19. Progress Note SUBJECTIVE: 69-year-old male, past medical history of seizure disorder, alcohol abuse who was admitted for seizure and left-sided pneumothorax. Seizure, likely due to alcohol withdrawal versus medication noncompliance. Patient had multiple acute and chronic rib fractures, displaced, likely the causative agent for pneumothorax, underwent chest tube placement by thoracic surgery. Patient seen in the morning, more alert and awake, without any complaints at this time, reports mild chest discomfort at the chest tube site. Patient having minimal chest tube bloody drainage, no air leak noted. Patient denies any nausea, vomiting, abdominal pain or diarrhea. 10/04/19 No acute events overnight, comfortable in bed, pain well controlled, continues to have mild/moderate L sided chest pain, small amount of serosanguinous drainage from chest tube, no air leak noted. 10/05/19 No acute events, comfortable in bed, pain is very well controlled, no dyspnea, having mild cough. 10/06/19 Patient comfortable in bed, chest tube was removed yesterday, morning x-ray without recurrence of pneumothorax, having mild chest/shoulder discomfort, no other complaints. 10/07/19 Comfortable in bed, no acute events overnight, no complaints at this time, pain is well controlled, homeless, will require placement if possible. 10/08/19 Patient seen in the morning, comfortable in bed, without any complaints, epidural to be removed today. Patient is homeless, will require placement. 10/10/19 Patient comfortable in bed, continues to experience L shoulder & pleuritic chest pain, reasonably controlled on current regimen. Patient is now refusing placement and wishes to go home when medically cleared. 10 point review of system is negative except for above PHYSICAL EXAMINATION: VITAL SIGNS: Please see below. GENERAL: No distress HEENT: Normocephalic, atraumatic, moist mucous membranes NECK: Supple CARDIOVASCULAR EXAMINATION: S1, S2, no murmurs RESPIRATORY EXAMINATION: Diminished on the left side, no wheezing ABDOMINAL EXAMINATION: Soft, nontender, nondistended, positive bowel sounds EXTREMITIES: Range of motion intact SKIN: No rash NEUROLOGICAL EXAMINATION: no focal deficits PSYCHIATRIC EXAMINATION: Calm and cooperative LABORATORY DATA, IMAGING STUDIES, MICROBIOLOGY: Please see below. ASSESSMENT AND PLAN: 69-year-old male with history of alcohol abuse and seizure disorder, was admitted for seizure, rib fractures and pneumothorax. PROBLEMS: 1. Pneumothorax: Likely caused by displaced rib fracture, status post chest tube placement by thoracic surgery, chest tube has been removed, CT showing pleural effusion (possible hemothorax), scheduled for pigtail catheter tomorrow by IR. Patient refusing placement, will be going home when cleared. 2. Seizure disorder: continue Keppra 750 mg twice a day, seizure precautions. DVT prophylaxis: Heparin subcutaneous GI prophylaxis: Protonix VS, I&O, 24H, Fishbone Vital Signs/I&O Vital Signs Date Time Temp Pulse Resp B/P (MAP) Pulse Ox O2 Delivery O2 Flow Rate FiO2 10/10/19 20:14 18 Room Air 10/10/19 20:00 97.4 103 133/88 (103) 99 10/08/19 08:00 2.0 I&O- Last 24 Hours up to 6 AM 10/10/19 06:00 Intake Total 2635 ml Output Total 1925 ml Balance 710 ml Laboratory Data 24H LABS Laboratory Tests 2 10/10/19 05:29: Phosphorus Level 3.3 CHAITANYA TERRY MD Oct 10, 2019 20:38
[2019-10-11] VITALS (10 sets, daily range): BP systolic 107–140; BP diastolic 69–91
[2019-10-11] MEDS: SLF 3 ML SYR IV SCH ×3 (05:57→21:47)
[2019-10-11 06:14] LABS: HEMATOCRIT 34.7 % (42.0-52.0); HEMOGLOBIN 11.9 g/dl (13.5-17.5); MEAN CORPUSCULAR HEMOGLOBIN 33.9 pg (27.0-33.0); MEAN CORPUSCULAR HGB CONC 34.3 g/dl (32.0-36.5); MEAN CORPUSCULAR VOLUME 98.9 fl (80.0-96.0); PLATELET COUNT, AUTOMATED 364 10^3/uL (150-450); RED BLOOD COUNT 3.51 10^6/uL (4.30-6.10); WHITE BLOOD COUNT 8.3 10^3/uL (4.0-10.0)
[2019-10-11 06:43] LABS: BLOOD UREA NITROGEN 2 MG/DL (7-18); CALCIUM LEVEL 8.3 MG/DL (8.8-10.2); CARBON DIOXIDE LEVEL 26 MEQ/L (21-32); CHLORIDE LEVEL 100 MEQ/L (98-107); CREATININE FOR GFR 0.78 MG/DL (0.70-1.30); GLOMERULAR FILTRATION RATE > 60.0 (>49); GLUCOSE, FASTING 114 MG/DL (70-100); LDH LACTATE DEHYDROGENASE 193 U/L (87-241); POTASSIUM SERUM 4.1 MEQ/L (3.5-5.1); SODIUM LEVEL 132 MEQ/L (136-145)
[2019-10-11] MEDS: levETIRAcetam 250MG TABLET (KEPPRA) PO SCH ×2 (09:14→21:46)
[2019-10-11] MEDS: MULTIVITAMINS/MINERALS THERAP 1 TAB PO SCH (09:14)
[2019-10-11] MEDS: PANTOPRAZOLE 40MG TAB (PROTONIX) PO SCH (09:14)
[2019-10-11] MEDS: FOLIC ACID 1 MG TAB PO SCH (09:14)
[2019-10-11] MEDS: HEPARIN SOD (PORCINE) 5000 UNITS/ML VIAL (J1644 PER 1000UNITS) SQ SCH ×2 (09:14→21:47)
[2019-10-11] MEDS: MOM 30ML SUSPENSION UDC PO SCH (10:12)
[2019-10-11] MEDS: PERCOCET 5MG/325MG TAB PO PRN (12:46)
[2019-10-11] MEDS ORDERED: SODIUM BICARBONATE 8.4% INJ 50MEQ 50 ML VIAL As Ordered ONE (14:29)
[2019-10-11 15:33] LABS: PH BODY FLUID 7.518 UNITS (NOT ESTABLISHED); SOURCE, BODY FLUID pH PLEURAL
--- NOTE | 2019-10-11 15:43 | REP ---
Chest x-ray: Two views. History: Post thoracentesis catheter placement. Comparison study: October 09, 2019. Findings: A percutaneously placed pigtail catheter is seen in the left posterior pleural angle. There is no evidence of pneumothorax. The left pleural effusion is improved. Impression: Left pleural drainage catheter in place. No complication seen. Improved left effusion. Electronically Signed by Sukhdeep Gonzales MD 10/11/2019 03:34 P
[2019-10-11 15:53] LABS: APPEARANCE, BODY FLUID CLOUDY (CLEAR); PLEURAL FL COLOR RED (COLORLESS); SOURCE, BODY FLUID PLEURAL
[2019-10-11 16:04] LABS: AMYLASE, BODY FLUID 33 U/L (NOT ESTABLISHED); CHOLESTEROL, BODY FLUID 80 MG/DL (NOT ESTABLISHED); LDH, BODY FLUID 298 U/L (NOT ESTABLISHED); SOURCE, BODY FLUID ALBUMIN PLEURAL; SOURCE, BODY FLUID AMYLASE PLEURAL; SOURCE, BODY FLUID CHOL PLEURAL; SOURCE, BODY FLUID GLUCOSE PLEURAL; SOURCE, BODY FLUID LDH PLEURAL; SOURCE, BODY FLUID TOT PROTEIN PLEURAL; SOURCE, BODY FLUID TRIG PLEURAL; TOTAL PROTEIN, BODY FLUID 4.5 G/DL (NOT ESTABLISHED); TRIGLYCERIDE, BODY FLUID 37 MG/DL (NOT ESTABLISHED)
--- NOTE | 2019-10-11 17:36 | REP ---
Ultrasound-guided thoracentesis and a pigtail catheter placement The procedure was performed by ANITA Denson, under the direct supervision of Dr. Gonzales The risks and benefits of the procedure were explained to the patient and informed consent was obtained both verbally and written. Directly prior to the start of the procedure, a formal timeout was completed in the exam room. Pleural fluid on the left lung zone was localized using ultrasound guidance. The skin was prepped and draped in a sterile fashion. 5 ml of buffered lidocaine was used as a local anesthetic. Using ultrasound guidance, an 10-Occitan multi side-hole Resolve pigtail catheter was inserted and advanced into the fluid. 200 ml of red colored fluid was withdrawn and sent to the lab for analysis. The catheter was then hooked up to a Pleur-Evac. The patient tolerated the procedure well and there were no immediate complications. After the appropriate amount of monitored convalescence, the patient was discharged from the department. Reviewed by ANITA Cherry 10/11/2019 03:54 P Electronically Signed by Sukhdeep Gonzales MD 10/11/2019 05:27 P
--- NOTE | 2019-10-11 20:04 | IPNPDOC ---
Date Seen The patient was seen on 10/11/19. Progress Note SUBJECTIVE: 69-year-old male, past medical history of seizure disorder, alcohol abuse who was admitted for seizure and left-sided pneumothorax. Seizure, likely due to alcohol withdrawal versus medication noncompliance. Patient had multiple acute and chronic rib fractures, displaced, likely the causative agent for pneumothorax, underwent chest tube placement by thoracic surgery. Patient seen in the morning, more alert and awake, without any complaints at this time, reports mild chest discomfort at the chest tube site. Patient having minimal chest tube bloody drainage, no air leak noted. Patient denies any nausea, vomiting, abdominal pain or diarrhea. 10/04/19 No acute events overnight, comfortable in bed, pain well controlled, continues to have mild/moderate L sided chest pain, small amount of serosanguinous drainage from chest tube, no air leak noted. 10/05/19 No acute events, comfortable in bed, pain is very well controlled, no dyspnea, having mild cough. 10/06/19 Patient comfortable in bed, chest tube was removed yesterday, morning x-ray without recurrence of pneumothorax, having mild chest/shoulder discomfort, no other complaints. 10/07/19 Comfortable in bed, no acute events overnight, no complaints at this time, pain is well controlled, homeless, will require placement if possible. 10/08/19 Patient seen in the morning, comfortable in bed, without any complaints, epidural to be removed today. Patient is homeless, will require placement. 10/10/19 Patient comfortable in bed, continues to experience L shoulder & pleuritic chest pain, reasonably controlled on current regimen. Patient is now refusing placement and wishes to go home when medically cleared. 10/11/19 Patient is comfortable, continues to have pleuritic pain, unchanged from yesterday, awaiting pigtail catheter placement later today. 10 point review of system is negative except for above PHYSICAL EXAMINATION: VITAL SIGNS: Please see below. GENERAL: No distress HEENT: Normocephalic, atraumatic, moist mucous membranes NECK: Supple CARDIOVASCULAR EXAMINATION: S1, S2, no murmurs RESPIRATORY EXAMINATION: Diminished on the left side, no wheezing ABDOMINAL EXAMINATION: Soft, nontender, nondistended, positive bowel sounds EXTREMITIES: Range of motion intact SKIN: No rash NEUROLOGICAL EXAMINATION: no focal deficits PSYCHIATRIC EXAMINATION: Calm and cooperative LABORATORY DATA, IMAGING STUDIES, MICROBIOLOGY: Please see below. ASSESSMENT AND PLAN: 69-year-old male with history of alcohol abuse and seizure disorder, was admitted for seizure, rib fractures and pneumothorax. PROBLEMS: 1. Pneumothorax: Likely caused by displaced rib fracture, status post chest tube placement by thoracic surgery, chest tube has been removed, CT showing pleural effusion (possible hemothorax), scheduled for pigtail catheter later today by IR. Patient refusing placement, will be going home when cleared. 2. Seizure disorder: continue Keppra 750 mg twice a day, seizure precautions. DVT prophylaxis: Heparin subcutaneous GI prophylaxis: Protonix VS, I&O, 24H, Fishbone Vital Signs/I&O Vital Signs Date Time Temp Pulse Resp B/P (MAP) Pulse Ox O2 Delivery O2 Flow Rate FiO2 10/11/19 19:00 99.1 93 16 121/81 (94) 96 Room Air 10/08/19 08:00 2.0 I&O- Last 24 Hours up to 6 AM 10/11/19 05:59 Intake Total 2580 ml Output Total 1575 ml Balance 1005 ml Laboratory Data 24H LABS Laboratory Tests 2 10/11/19 06:00: Nucleated Red Blood Cells % (auto) 0.0, Anion Gap 6L, Glomerular Filtration Rate > 60.0, Calcium Level 8.3L, Lactate Dehydrogenase 193 10/11/19 15:05: Body Fluid pH 7.518, Body Fluid pH Source PLEURAL, Body Fluid WBC (Auto) 1913H, Body Fluid RBC (Auto) 448, Body Fluid Mononuclear Cells % Auto 77.8H, Fluid Polymorphonuclear Cell % Auto 22.2H, Body Fluid Glucose Source PLEURAL, Body Fluid Glucose 102, Body Fluid Protein Source PLEURAL, Body Fluid Total Protein 4.5, Body Fluid Albumin Source PLEURAL, Body Fluid Albumin 2.4, Body Fluid LDH Source PLEURAL, Body Fluid Lactate Dehydrogenase 298, Body Fluid Amylase Source PLEURAL, Body Fluid Amylase 33, Body Fluid Cholesterol 80, Body Fluid Cholesterol Source PLEURAL, Body Fluid Triglyceride Source PLEURAL, Body Fluid Triglycerides 37, Pleural Fluid Source PLEURAL, Pleural Fluid Color RED, Pleural Fluid Appearance CLOUDY CBC/BMP Laboratory Tests 10/11/19 06:00 Microbiology Microbiology 10/11/19 Gram Stain, Received Pending 10/11/19 Anaerobic Culture, Received Pending 10/11/19 Body Fluid Culture, Received Pending CHAITANYA TERRY MD Oct 11, 2019 20:04
[2019-10-12] VITALS: BP 133/78
[2019-10-12] MEDS: PERCOCET 5MG/325MG TAB PO PRN ×4 (00:04→20:26)
[2019-10-12 04:00] VITALS: BP 154/98
[2019-10-12] MEDS: SLF 3 ML SYR IV SCH ×3 (04:07→20:25)
--- NOTE | 2019-10-12 07:51 | REP ---
PA and lateral chest: Comparison is 10/11/2019. Multiple left rib fractures and pleural thickening along the left lateral chest wall are unchanged. The left pleural drainage catheter is unchanged. There is slightly increased density in the left costophrenic angle as an interval change. The remainder of the left lung is clear. Right lung is clear. Cardiac size is normal for Impression: Slightly increased density in the left costophrenic angle as an interval change. The left pleural drainage catheter is unchanged. Electronically Signed by Marty Islas MD 10/12/2019 07:43 A
[2019-10-12 08:00] VITALS: BP 112/60
[2019-10-12] MEDS: MOM 30ML SUSPENSION UDC PO SCH (09:00)
[2019-10-12] MEDS: FOLIC ACID 1 MG TAB PO SCH (09:32)
[2019-10-12] MEDS: MULTIVITAMINS/MINERALS THERAP 1 TAB PO SCH (09:33)
[2019-10-12] MEDS: levETIRAcetam 250MG TABLET (KEPPRA) PO SCH ×2 (09:33→20:25)
[2019-10-12] MEDS: HEPARIN SOD (PORCINE) 5000 UNITS/ML VIAL (J1644 PER 1000UNITS) SQ SCH ×2 (09:33→20:25)
[2019-10-12] MEDS: PANTOPRAZOLE 40MG TAB (PROTONIX) PO SCH (09:33)
[2019-10-12 12:00] VITALS: BP 120/80
--- NOTE | 2019-10-12 12:09 | IPN ---
DATE: 10/12/2019 Mr. Monique went down for his pigtail catheter yesterday. Chest was initially drained of 200 mL of red fluid. He has drained another 184 mL overnight. His vital signs show a maximum temperature (Tmax) of 99.1 with a heart rate that ranges between 104-117, in a sinus rhythm, respiratory rate of 16-20, without the use of accessory muscles, who is 97% saturated on room air, and his blood pressure is ranging between 154/98-112/60. His intake and output over the past 24 hours has been recorded as 1440 in and 1459 out for near equality. He has put out 184 mL from the chest catheter since insertion. He weighs 70.4 kg today compared to 73 kg yesterday. There is no air leak. On physical examination, he has equal breath sounds on either side. I do hear some coarse rhonchi most of which does clear with coughing on left side. Cardiac exam without murmurs, clicks, gallops or rubs. I cannot feel his point of maximum impulse (PMI). S1 and S2 are normal. Abdomen is soft, nontender. Bowel sounds positive. There is no hepatomegaly. No costovertebral angle tenderness. He is, however slightly distended and tympanitic. He had a bowel movement consisting of loose stool today. His extremities show no pretibial edema, no calf tenderness. No differential swelling of the upper extremities. Skin is warm, dry and perfused without cyanosis or mottling, including that of the nail beds and knees. Neck is supple. There is no jugular venous distention, no subcutaneous emphysema. Trachea is midline. Mouth shows the mucous membranes to be pink and moist. Lips and commissures are without lesions. There is no thrush. Eyes show his pupils to be equal and reactive, extraocular motion intact. Sclerae anicteric. Neuro shows II-XII intact along with gross motor and gross sensation intact. Gait is not tested. Psychiatric shows him to be awake and alert, oriented times three with appropriate mood and affect and conversational. The sutures on his right eyebrow had been removed. White count today is 8.3 with hemoglobin and hematocrit of 11.9 and 34.7, and a platelet count of 364. Chemistries today show a marginally low sodium of 132 with BUN and creatinine of 2 and 0.78, with a glucose of 114 and a calcium of 8.3. Chest x-ray today shows the lung fully expanded to the chest wall. Pigtail catheter is in good place and the pleural effusion is resolved. He does have the pleural thickening from his rib fractures on the left side. I see no posterior infiltrates on the lateral film. IMPRESSION: 1. Left pneumothorax, multiple rib fractures on the left side. 2. Pleural effusion, resolved with a pigtail catheter. 3. Alcohol abuse. 4. Alcohol withdrawal. 5. Seizures, controlled. PLAN AND DISCUSSION: His pleural fluid has come back with a pH 7.5, with a glucose of 102 and LDH of 298, with corresponding serum LDH of 193. White count is 1913 of which 77% are mononuclear and lymphocytes, and 22% are PMNs. This looks to be an osmotic pleural effusion secondary to a hemothorax secondary to his rib fractures. Pathology is still pending, and microbiology shows no organisms on gram-stain. I will probably discontinue the pigtail catheter in the morning. He is being given Percocet for pain control, and I will restart his Toradol so long as creatinine remains less than 1. I think he does have a low pain threshold considering the fact that removing his sutures from his eyebrow caused him considerable pain and consternation.
[2019-10-12] MEDS: KETOROLAC 30 MG/ML VIAL (J1885) IV SCH ×2 (13:29→18:16)
[2019-10-12 16:00] VITALS: BP 120/80
[2019-10-12 20:00] VITALS: BP 110/83
--- NOTE | 2019-10-12 22:02 | IPNPDOC ---
Date Seen The patient was seen on 10/12/19. Progress Note SUBJECTIVE: 69-year-old male, past medical history of seizure disorder, alcohol abuse who was admitted for seizure and left-sided pneumothorax. Seizure, likely due to alcohol withdrawal versus medication noncompliance. Patient had multiple acute and chronic rib fractures, displaced, likely the causative agent for pneumothorax, underwent chest tube placement by thoracic surgery. Patient seen in the morning, more alert and awake, without any complaints at this time, reports mild chest discomfort at the chest tube site. Patient having minimal chest tube bloody drainage, no air leak noted. Patient denies any nausea, vomiting, abdominal pain or diarrhea. 10/04/19 No acute events overnight, comfortable in bed, pain well controlled, continues to have mild/moderate L sided chest pain, small amount of serosanguinous drainage from chest tube, no air leak noted. 10/05/19 No acute events, comfortable in bed, pain is very well controlled, no dyspnea, having mild cough. 10/06/19 Patient comfortable in bed, chest tube was removed yesterday, morning x-ray without recurrence of pneumothorax, having mild chest/shoulder discomfort, no other complaints. 10/07/19 Comfortable in bed, no acute events overnight, no complaints at this time, pain is well controlled, homeless, will require placement if possible. 10/08/19 Patient seen in the morning, comfortable in bed, without any complaints, epidural to be removed today. Patient is homeless, will require placement. 10/10/19 Patient comfortable in bed, continues to experience L shoulder & pleuritic chest pain, reasonably controlled on current regimen. Patient is now refusing placement and wishes to go home when medically cleared. 10/11/19 Patient is comfortable, continues to have pleuritic pain, unchanged from yesterday, awaiting pigtail catheter placement later today. 10/12/19 Patient seen in the morning, pigtail catheter placed yesterday, chest tube with bloody drainage, continues to have left-sided chest/shoulder pain, worse with deep inspiration. 10 point review of system is negative except for above PHYSICAL EXAMINATION: VITAL SIGNS: Please see below. GENERAL: No distress HEENT: Normocephalic, atraumatic, moist mucous membranes NECK: Supple CARDIOVASCULAR EXAMINATION: S1, S2, no murmurs RESPIRATORY EXAMINATION: Diminished on the left side, no wheezing ABDOMINAL EXAMINATION: Soft, nontender, nondistended, positive bowel sounds EXTREMITIES: Range of motion intact SKIN: No rash NEUROLOGICAL EXAMINATION: no focal deficits PSYCHIATRIC EXAMINATION: Calm and cooperative LABORATORY DATA, IMAGING STUDIES, MICROBIOLOGY: Please see below. ASSESSMENT AND PLAN: 69-year-old male with history of alcohol abuse and seizure disorder, was admitted for seizure, rib fractures and pneumothorax. PROBLEMS: 1. Pneumothorax: Likely caused by displaced rib fracture, status post chest tube placement by thoracic surgery, developed a hemothorax after his chest tube was removed, pigtail catheter was placed yesterday by interventional radiology, having bloody drainage, chest x-ray today with significant improvement, plan to remove pigtail catheter in the morning. 2. Seizure disorder: continue Keppra 750 mg twice a day, seizure precautions. DVT prophylaxis: Heparin subcutaneous GI prophylaxis: Protonix VS, I&O, 24H, Fishbone Vital Signs/I&O Vital Signs Date Time Temp Pulse Resp B/P (MAP) Pulse Ox O2 Delivery O2 Flow Rate FiO2 10/12/19 20:26 18 Room Air 10/12/19 20:00 97.3 106 110/83 (92) 96 10/08/19 08:00 2.0 I&O- Last 24 Hours up to 6 AM 10/12/19 06:00 Intake Total 1800 ml Output Total 1714 ml Balance 86 ml Laboratory Data Microbiology Microbiology 10/11/19 Gram Stain - Final, Resulted 10/11/19 Anaerobic Culture, Resulted Pending 10/11/19 Body Fluid Culture, Received Pending CHAITANYA TERRY MD Oct 12, 2019 22:02
[2019-10-13] VITALS: BP 119/77
[2019-10-13] MEDS: KETOROLAC 30 MG/ML VIAL (J1885) IV SCH ×4 (00:04→18:11)
[2019-10-13 04:00] VITALS: BP 143/85
[2019-10-13] MEDS: PERCOCET 5MG/325MG TAB PO PRN ×2 (04:13→18:11)
[2019-10-13 04:57] LABS: ALBUMIN 2.6 GM/DL (3.2-5.2); ALT/SGPT 29 U/L (12-78); BILIRUBIN,TOTAL 0.6 MG/DL (0.2-1.0); BLOOD UREA NITROGEN 7 MG/DL (7-18); CALCIUM LEVEL 8.4 MG/DL (8.8-10.2); CARBON DIOXIDE LEVEL 26 MEQ/L (21-32); CHLORIDE LEVEL 99 MEQ/L (98-107); CREATININE FOR GFR 0.81 MG/DL (0.70-1.30); GLOMERULAR FILTRATION RATE > 60.0 (>49); GLUCOSE, FASTING 97 MG/DL (70-100); POTASSIUM SERUM 3.7 MEQ/L (3.5-5.1); SODIUM LEVEL 131 MEQ/L (136-145); TOTAL PROTEIN 6.6 GM/DL (6.4-8.2)
[2019-10-13] MEDS: SLF 3 ML SYR IV SCH ×3 (05:57→21:02)
[2019-10-13 08:00] VITALS: BP 134/86
[2019-10-13] MEDS: MOM 30ML SUSPENSION UDC PO SCH (09:00)
[2019-10-13] MEDS ORDERED: POTASSIUM CHLORIDE 10 MEQ SR TABLET PO ONE (09:00)
[2019-10-13] MEDS: PANTOPRAZOLE 40MG TAB (PROTONIX) PO SCH (09:14)
[2019-10-13] MEDS: HEPARIN SOD (PORCINE) 5000 UNITS/ML VIAL (J1644 PER 1000UNITS) SQ SCH ×2 (09:14→20:57)
[2019-10-13] MEDS: FOLIC ACID 1 MG TAB PO SCH (09:14)
[2019-10-13] MEDS: levETIRAcetam 250MG TABLET (KEPPRA) PO SCH ×2 (09:14→20:56)
[2019-10-13] MEDS: MULTIVITAMINS/MINERALS THERAP 1 TAB PO SCH (09:14)
[2019-10-13 12:00] VITALS: BP 121/64
--- NOTE | 2019-10-13 12:18 | IPN ---
DATE: 10/13/2019 Mr. Monique is doing well. His pain is being fairly well controlled from his rib fractures with oral analgesics. His vital signs show a maximum temperature (Tmax) of 97.4, with a heart rate that ranges between 91 and 111, in a sinus rhythm, a respiratory rate of 16-18, without the use of accessory muscles, who is 99% saturated on room air, and whose blood pressure is ranging between 119/77 to 143/85. His intake and output over the past 24 hours has been recorded as 1960 in and 1337 out for a positivity of 600 mL. He has put 62 mL out the chest catheter. His weight today is 71.8 kg compared to 70.4 kg yesterday. On physical examination, he has equal breath sounds on either side with normal vesicular sounds. I hear no wheezes, rhonchi or rales. Abdomen is soft and nontender. Bowel sounds are positive. There is no hepatomegaly. No costovertebral angle (CVA) tenderness. Extremities show no pretibial edema, no calf tenderness and no differential swelling of the upper extremities. Skin is warm, dry and perfused without cyanosis or mottling, including that of the nail beds and knees. Neck is supple. There is no jugular venous distention, no subcutaneous emphysema. Trachea is midline. Mouth shows the mucous membranes to be pink and moist. Lips and commissures are without lesions. There is no thrush. Eyes show his pupils to be equal and reactive, extraocular motion intact. Sclerae anicteric. Neurologic shows II-XII intact along with gross motor and gross sensation intact. Gait is not tested. Psychiatric shows him to be awake and alert, oriented times three with appropriate mood and affect and conversational. Cardiac exam is without murmus, clicks, gallops or rubs. His chest x-ray showed some atelectatic changes in the left lower hemithorax. It looks as if he still has a pleural effusion on the lateral film. I therefore did obtain a CT scan of his chest without contrast. He has a very small amount of fluid left in the hemithorax. The pigtail catheter is in good position. There is a sliver of fluid left in the posterior costophrenic angle. He has pleural thickening secondary to the rib fractures. His electrolytes are normal today with a BUN and creatinine of 7 and 0.81 with a glucose of 97 and a calcium of 8.4 with a corresponding albumin of 2.6. He remains on Toradol. IMPRESSION: 1. Left pneumothorax, resolved. 2. Multiple rib fractures left side. 3. Pleural effusion, resolved with a pigtail catheter. 4. Alcohol abuse. 5. Alcohol withdrawal. 6. Seizures, controlled. PLAN AND DISCUSSION: I will remove his chest catheter today. After doing so, I can see no reason why he cannot be discharged in the next 24-48 hours. His pain threshold is very low and he will need narcotic analgesia at home. I am concerned that if we prescribe narcotic analgesia and he continues drinking that it may be a problematic combination. Therefore, I suggested we write him for a limited amount of narcotics. I will see him back in the office in two weeks in post hospitalization followup.
--- NOTE | 2019-10-13 12:49 | REP ---
REASON: Followup pleural effusion. The left-sided thoracotomy tube is unchanged. Bibasilar opacities, left greater than right, status quo. No change in the cardiomediastinal silhouette. No change in the osseous structures. IMPRESSION: No significant change. Unreviewed
--- NOTE | 2019-10-13 14:03 | REP ---
REASON: Followup pleural effusion. All priors have been reviewed, the latest of which is dated 10/10/2019. The lack of intravenous contrast decreases the sensitivity of the exam. There is no change in the appearance of the mediastinum or pulmonary ish. There is no change in the imaged upper abdomen or imaged osseous structures. Once again, there are multiple left-sided rib fractures, status quo. Seen on one image only, there is irregularity of the cortex of the proximal left clavicle. The moderate sized left pleural effusion seen on the 10/10/2019 examination has significantly decreased due to placement of a thoracotomy tube. Evaluation of the lung sage shows scattered chronic curvilinear opacities and an unchanged pleural-based density in the left upper lobe and superior lingula. There are no new abnormal opacities. IMPRESSION: 1. Decrease in the size of the left pleural effusion due to recent placement of a chest tube. 2. Chronic lung field opacities, as described above, likely secondary to fibrotic and/or subsegmental atelectatic changes. 3. Multiple left-sided rib fractures and suspected, although incompletely imaged, proximal left clavicle fracture. 4. Unchanged findings in the imaged upper abdomen with diffuse fatty infiltration of the liver and cholelithiasis. 5. Other findings as described above. Unreviewed
[2019-10-13 16:00] VITALS: BP 148/88
--- NOTE | 2019-10-13 17:52 | IPNPDOC ---
Date Seen The patient was seen on 10/13/19. Progress Note SUBJECTIVE: 69-year-old male, past medical history of seizure disorder, alcohol abuse who was admitted for seizure and left-sided pneumothorax. Seizure, likely due to alcohol withdrawal versus medication noncompliance. Patient had multiple acute and chronic rib fractures, displaced, likely the causative agent for pneumothorax, underwent chest tube placement by thoracic surgery. Patient seen in the morning, more alert and awake, without any complaints at this time, reports mild chest discomfort at the chest tube site. Patient having minimal chest tube bloody drainage, no air leak noted. Patient denies any nausea, vomiting, abdominal pain or diarrhea. 10/13/19 Patient seen in the morning, continues to have significant left-sided pleuritic chest pain, chest tube removed earlier today, tentatively plan for discharge in 24-48 hours. 10 point review of system is negative except for above PHYSICAL EXAMINATION: VITAL SIGNS: Please see below. GENERAL: No distress HEENT: Normocephalic, atraumatic, moist mucous membranes NECK: Supple CARDIOVASCULAR EXAMINATION: S1, S2, no murmurs RESPIRATORY EXAMINATION: Diminished on the left side, no wheezing ABDOMINAL EXAMINATION: Soft, nontender, nondistended, positive bowel sounds EXTREMITIES: Range of motion intact SKIN: No rash NEUROLOGICAL EXAMINATION: no focal deficits PSYCHIATRIC EXAMINATION: Calm and cooperative LABORATORY DATA, IMAGING STUDIES, MICROBIOLOGY: Please see below. ASSESSMENT AND PLAN: 69-year-old male with history of alcohol abuse and seizure disorder, was admitted for seizure, rib fractures and pneumothorax. PROBLEMS: 1. Pneumothorax: Likely caused by displaced rib fracture, status post chest tube placement by thoracic surgery, developed a hemothorax after his chest tube was removed, pigtail catheter was placed for 48 hours, which has been removed earlier today, pain control, tentatively plan for discharge in 24-48 hours. 2. Seizure disorder: continue Keppra 750 mg twice a day, seizure precautions. DVT prophylaxis: Heparin subcutaneous GI prophylaxis: Protonix VS, I&O, 24H, Fishbone Vital Signs/I&O Vital Signs Date Time Temp Pulse Resp B/P (MAP) Pulse Ox O2 Delivery O2 Flow Rate FiO2 10/13/19 16:00 98.7 85 17 148/88 (108) 97 Room Air 10/08/19 08:00 2.0 I&O- Last 24 Hours up to 6 AM 10/13/19 06:00 Intake Total 1840 ml Output Total 1407 ml Balance 433 ml Laboratory Data 24H LABS Laboratory Tests 2 10/13/19 04:17: Anion Gap 6L, Glomerular Filtration Rate > 60.0, Calcium Level 8.4L, Total Bilirubin 0.6, Aspartate Amino Transf (AST/SGOT) 24, Alanine Aminotransferase (ALT/SGPT) 29, Alkaline Phosphatase 181H, Total Protein 6.6, Albumin 2.6L, Albumin/Globulin Ratio 0.65L CBC/BMP Laboratory Tests 10/13/19 04:17 Microbiology Microbiology 10/11/19 Gram Stain - Final, Complete 10/11/19 Anaerobic Culture - Final, Complete 10/11/19 Body Fluid Culture - Final, Complete CHAITANYA TERRY MD Oct 13, 2019 17:52
[2019-10-13 20:00] VITALS: BP 134/84
[2019-10-14] VITALS (7 sets, daily range): BP systolic 118–138; BP diastolic 70–93
[2019-10-14] MEDS: KETOROLAC 30 MG/ML VIAL (J1885) IV SCH ×4 (00:13→17:00)
[2019-10-14] MEDS: PERCOCET 5MG/325MG TAB PO PRN (05:59)
[2019-10-14] MEDS: SLF 3 ML SYR IV SCH ×3 (06:00→21:40)
[2019-10-14 06:28] LABS: HEMATOCRIT 33.6 % (42.0-52.0); HEMOGLOBIN 11.6 g/dl (13.5-17.5); MEAN CORPUSCULAR HEMOGLOBIN 33.6 pg (27.0-33.0); MEAN CORPUSCULAR HGB CONC 34.5 g/dl (32.0-36.5); MEAN CORPUSCULAR VOLUME 97.4 fl (80.0-96.0); PLATELET COUNT, AUTOMATED 425 10^3/uL (150-450); RED BLOOD COUNT 3.45 10^6/uL (4.30-6.10); WHITE BLOOD COUNT 9.1 10^3/uL (4.0-10.0)
[2019-10-14 06:44] LABS: BLOOD UREA NITROGEN 6 MG/DL (7-18); CALCIUM LEVEL 7.8 MG/DL (8.8-10.2); CARBON DIOXIDE LEVEL 24 MEQ/L (21-32); CHLORIDE LEVEL 101 MEQ/L (98-107); CREATININE FOR GFR 0.79 MG/DL (0.70-1.30); GLOMERULAR FILTRATION RATE > 60.0 (>49); GLUCOSE, FASTING 78 MG/DL (70-100); POTASSIUM SERUM 4.3 MEQ/L (3.5-5.1); SODIUM LEVEL 133 MEQ/L (136-145)
[2019-10-14] MEDS: FOLIC ACID 1 MG TAB PO SCH (07:56)
[2019-10-14] MEDS: PANTOPRAZOLE 40MG TAB (PROTONIX) PO SCH (07:56)
[2019-10-14] MEDS: levETIRAcetam 250MG TABLET (KEPPRA) PO SCH ×2 (07:56→21:38)
[2019-10-14] MEDS: MOM 30ML SUSPENSION UDC PO SCH (07:56)
[2019-10-14] MEDS: MULTIVITAMINS/MINERALS THERAP 1 TAB PO SCH (07:56)
[2019-10-14] MEDS: HEPARIN SOD (PORCINE) 5000 UNITS/ML VIAL (J1644 PER 1000UNITS) SQ SCH ×2 (07:56→21:39)
[2019-10-14] MEDS: BENZONATATE 100 MG CAP PO SCH ×2 (15:06→21:39)
[2019-10-14] MEDS: NORCO, ANEXSIA 5/325MG TABLET (HYDROcodone/ACETAMINOPHEN) PO PRN (17:55)
--- NOTE | 2019-10-14 21:03 | IPNPDOC ---
Date Seen The patient was seen on 10/14/19. Progress Note SUBJECTIVE: 69-year-old male, past medical history of seizure disorder, alcohol abuse who was admitted for seizure and left-sided pneumothorax. Seizure, likely due to alcohol withdrawal versus medication noncompliance. Patient had multiple acute and chronic rib fractures, displaced, likely the causative agent for pneumothorax, underwent chest tube placement by thoracic surgery. Patient seen in the morning, more alert and awake, without any complaints at this time, reports mild chest discomfort at the chest tube site. Patient having minimal chest tube bloody drainage, no air leak noted. Patient denies any nausea, vomiting, abdominal pain or diarrhea. 10/13/19 Patient seen in the morning, continues to have significant left-sided pleuritic chest pain, chest tube removed earlier today, tentatively plan for discharge in 24-48 hours. 10/14/19 No acute events in the morning, continues to have moderate pain, doesn't feel well enough to go home today, has refused PFS services for placement previously, plan for d/c home tomorrow. 10 point review of system is negative except for above PHYSICAL EXAMINATION: VITAL SIGNS: Please see below. GENERAL: No distress HEENT: Normocephalic, atraumatic, moist mucous membranes NECK: Supple CARDIOVASCULAR EXAMINATION: S1, S2, no murmurs RESPIRATORY EXAMINATION: basilar rhonchi, no wheezing ABDOMINAL EXAMINATION: Soft, nontender, nondistended, positive bowel sounds EXTREMITIES: Range of motion intact SKIN: No rash NEUROLOGICAL EXAMINATION: no focal deficits PSYCHIATRIC EXAMINATION: Calm and cooperative LABORATORY DATA, IMAGING STUDIES, MICROBIOLOGY: Please see below. ASSESSMENT AND PLAN: 69-year-old male with history of alcohol abuse and seizure disorder, was admitted for seizure, rib fractures and pneumothorax. PROBLEMS: 1. Pneumothorax: Likely caused by displaced rib fracture, status post chest tube placement by thoracic surgery, developed a hemothorax after his chest tube was removed, pigtail catheter was subsequently placed which has been now removed as well, tentatively plan for discharge tomorrow. 2. Seizure disorder: continue Keppra 750 mg twice a day, seizure precautions. DVT prophylaxis: Heparin subcutaneous GI prophylaxis: Protonix VS, I&O, 24H, Fishbone Vital Signs/I&O Vital Signs Date Time Temp Pulse Resp B/P (MAP) Pulse Ox O2 Delivery O2 Flow Rate FiO2 10/14/19 20:00 98.0 84 16 122/70 (87) 95 Room Air 10/08/19 08:00 2.0 I&O- Last 24 Hours up to 6 AM 10/14/19 06:00 Intake Total 960 ml Output Total 1250 ml Balance -290 ml Laboratory Data 24H LABS Laboratory Tests 2 10/14/19 05:54: Nucleated Red Blood Cells % (auto) 0.0, Anion Gap 8, Glomerular Filtration Rate > 60.0, Calcium Level 7.8L, Phosphorus Level 4.0, Magnesium Level 2.0 CBC/BMP Laboratory Tests 10/14/19 05:54 Microbiology Microbiology 10/11/19 Acid Fast Stain, Received Pending 10/11/19 Mycobacterial Culture, Received Pending 10/11/19 Fungal Smear, Received Pending 10/11/19 Fungal Culture, Received Pending 10/11/19 Gram Stain - Final, Complete 10/11/19 Anaerobic Culture - Final, Complete 10/11/19 Body Fluid Culture - Final, Complete CHAITANYA TERRY MD Oct 14, 2019 21:02
[2019-10-15] MEDS: KETOROLAC 30 MG/ML VIAL (J1885) IV SCH ×2 (00:27→06:37)
[2019-10-15 06:00] VITALS: BP 151/98
[2019-10-15] MEDS: SLF 3 ML SYR IV SCH (06:36)
[2019-10-15] MEDS: BENZONATATE 100 MG CAP PO SCH (06:36)
[2019-10-15] MEDS: MOM 30ML SUSPENSION UDC PO SCH (09:00)
[2019-10-15] MEDS: PANTOPRAZOLE 40MG TAB (PROTONIX) PO SCH (09:38)
[2019-10-15] MEDS: HEPARIN SOD (PORCINE) 5000 UNITS/ML VIAL (J1644 PER 1000UNITS) SQ SCH (09:38)
[2019-10-15] MEDS: FOLIC ACID 1 MG TAB PO SCH (09:38)
[2019-10-15] MEDS: MULTIVITAMINS/MINERALS THERAP 1 TAB PO SCH (09:39)
[2019-10-15] MEDS: levETIRAcetam 250MG TABLET (KEPPRA) PO SCH (09:39)
[2019-10-15] MEDS ORDERED: PERCOCET PO (10:37)
--- NOTE | 2019-10-15 12:18 | DS.PDOC ---
Discharge Summary General Date of Admission Oct 02, 2019 at 13:13 Date of Discharge 10/15/19 Attending Physician: CHAITANYA TERRY MD Discharge Summary PROCEDURES PERFORMED DURING STAY: None. ADMITTING DIAGNOSES: 1. Seizure, multiple rib fractures, pneumothorax, hemothorax. DISCHARGE DIAGNOSES: 1. Seizure, multiple rib fractures, pneumothorax, hemothorax. COMPLICATIONS/CHIEF COMPLAINT: Afebrile Seizure. HISTORY OF PRESENT ILLNESS: 69-year-old male with past medical history of seizure disorder, alcohol abuse, who was initially admitted for seizure resulting in a fall and multiple rib fractures on the left side. Patient had another seizure while in the emergency department, which caused pneumothorax from a displaced rib. Patient had a left-sided chest tube placed by thoracic surgery. The chest tube was removed a few days later and subsequently patient developed a left-sided hemothorax, had a pigtail placed by interventional radiology. The second chest tube was removed 48 hours later and patient has remained asymptomatic and clinically at baseline since then. Patient continues to have moderate pleuritic chest pain from multiple rib fractures, well- controlled on pain regimen in the hospital, will be discharged on Percocet with a 4 day supply. Patient did not have any further seizure activity while hospitalized, was restarted on his home Keppra. Patient was evaluated by patient and family services, but refused any help regarding placement and wishes to be discharged home at this time. Patient is clinically and with that was stable for discharge at this time. HOSPITAL COURSE: As above. DISCHARGE MEDICATIONS: Please see below. ALLERGIES: Please see below. PHYSICAL EXAMINATION: VITAL SIGNS: Please see below. GENERAL: No distress HEENT: Normocephalic, atraumatic, moist mucous membranes NECK: Supple CARDIOVASCULAR EXAMINATION: S1, S2, no murmurs RESPIRATORY EXAMINATION: basilar rhonchi, no wheezing ABDOMINAL EXAMINATION: Soft, nontender, nondistended, positive bowel sounds EXTREMITIES: Range of motion intact SKIN: No rash NEUROLOGICAL EXAMINATION: no focal deficits PSYCHIATRIC EXAMINATION: Calm and cooperative LABORATORY DATA: Please see below. IMAGING: CT chest showing multiple left-sided rib fractures, displaced. Imaging consistent with hemothorax/pneumothorax discussed above. PROGNOSIS: Guarded ACTIVITY: As tolerated. DIET: Cardiac DISCHARGE PLAN: Follow with PCP and thoracic surgery in 1-2 weeks DISPOSITION: Home. DISCHARGE INSTRUCTIONS: 1. As above. DISCHARGE CONDITION: Stable. TIME SPENT ON DISCHARGE: Greater than 34 minutes. Vital Signs/I&Os Vital Signs Date Time Temp Pulse Resp B/P (MAP) Pulse Ox O2 Delivery O2 Flow Rate FiO2 10/15/19 06:00 99.1 85 18 151/98 (115) 100 Room Air I&O- Last 24 Hours up to 6 AM 10/15/19 06:00 Intake Total 960 ml Output Total 1050 ml Balance -90 ml Microbiology Microbiology 10/11/19 Acid Fast Stain, Received Pending 10/11/19 Mycobacterial Culture, Received Pending 10/11/19 Fungal Smear, Received Pending 10/11/19 Fungal Culture, Received Pending 10/11/19 Gram Stain - Final, Complete 10/11/19 Anaerobic Culture - Final, Complete 10/11/19 Body Fluid Culture - Final, Complete Discharge Medications Scheduled Levetiracetam (Levetiracetam) 750 Mg Tablet, 750 MG PO BID, (Reported) Scheduled PRN Oxycodone/Acetaminophen (Oxycodone-Acetaminophen 5-325) 1 Each Tablet, 1 TAB PO Q6HP PRN for MODERATE/SEVERE PAIN (PS 5-10) Allergies Coded Allergies: No Known Drug Allergies (Verified Allergy, Unknown, 07/18/19) CHAITANYA TERRY MD Oct 15, 2019 12:18
== END 2019-10-15 12:20 | disposition home or self-care (01) | DRG 200 ==
LOC: M ED 09:36 → EDBD 09:36 → M ED INP 13:13 → M PCU 13:39 → M MSPAV 10-14 15:21
PROVIDERS: ADMIT Thoracic Surgery (Cardiothoracic Vascular Surgery); ATTEND Internal Medicine
PROC: 0W9B30Z Drainage of Left Pleural Cavity with Drainage Device, Percutaneous Approach (ICD-10-PCS; principal; 2019-10-02)
PROC: 0W9B3ZZ Drainage of Left Pleural Cavity, Percutaneous Approach (ICD-10-PCS; 2019-10-11)
DX: S27.0XXA Traumatic pneumothorax, initial encounter (principal); S22.42XA Multiple fractures of ribs, left side, initial encounter for closed fracture; J95.861 Postprocedural hematoma of a respiratory system organ or structure following other procedure; J94.2 Hemothorax; G40.409 Other generalized epilepsy and epileptic syndromes, not intractable, without status epilepticus; S42.035A Nondisplaced fracture of lateral end of left clavicle, initial encounter for closed fracture; F10.10 Alcohol abuse, uncomplicated; W18.30XA Fall on same level, unspecified, initial encounter; Y92.009 Unspecified place in unspecified non-institutional (private) residence as the place of occurrence of the external cause; Z91.19 Patient's noncompliance with other medical treatment and regimen; I10 Essential (primary) hypertension; F17.200 Nicotine dependence, unspecified, uncomplicated

== ENCOUNTER 2019-12-11 10:54 | Observation (INO) | payer MEDICARE ==
[~2019-12-11] VITALS: Ht 162.6 cm; Wt 72.7 kg
[~2019-12-11 10:54] MED LIST changes: +PERCOCET PO
[2019-12-11 11:45] LABS: VENOUS BASE EXCESS -0.7 (-2.0-2.0); VENOUS HCO3 24.3 MEQ/L (23.0-27.0); VENOUS O2 SATURATION 74.7 % (60.0-80.0); VENOUS PARTIAL PRESSURE CO2 41.6 mmHg (38.0-50.0); VENOUS PARTIAL PRESSURE O2 43.1 mmHg (30.0-50.0); VENOUS PH 7.385 UNITS (7.330-7.430); VENOUS STANDARD HCO3 23.3 MEQ/L; VENOUS TOTAL CO2 25.6 MEQ/L (24.0-28.0)
[2019-12-11 11:49] LABS: BASO % 0.5 % (0.0-1.0); EOS # 0.1 10^3/uL (0.0-0.5); EOS % 1.2 % (0.0-3.0); HEMOGLOBIN 15.3 g/dl (13.5-17.5); LYMPH # 0.9 10^3/uL (1.5-5.0); LYMPH % 12.2 % (24.0-44.0); MEAN CORPUSCULAR VOLUME 91.1 fl (80.0-96.0); MONO # 0.6 10^3/uL (0.0-0.8); NEUTROPHILS # 5.8 10^3/uL (1.5-8.5); NEUTROPHILS % 77.7 % (36.0-66.0); PLATELET COUNT, AUTOMATED 174 10^3/uL (150-450); RED BLOOD COUNT 4.94 10^6/uL (4.30-6.10); WHITE BLOOD COUNT 7.5 10^3/uL (4.0-10.0)
[2019-12-11 12:17] LABS: OSMOLALITY SERUM 278 MOSM/KG (280-301)
[2019-12-11 12:25] LABS: ACETAMINOPHEN LEVEL < 2.0 UG/ML (10.0-30.0); ALBUMIN 3.5 GM/DL (3.2-5.2); ALT/SGPT 55 U/L (12-78); BILIRUBIN,DIRECT 0.3 MG/DL (0.0-0.2); BILIRUBIN,TOTAL 0.7 MG/DL (0.2-1.0); BLOOD UREA NITROGEN 7 MG/DL (7-18); CALCIUM LEVEL 8.7 MG/DL (8.8-10.2); CARBON DIOXIDE LEVEL 24 MEQ/L (21-32); CHLORIDE LEVEL 103 MEQ/L (98-107); CK-MB VALUE MASS 1.2 NG/ML (<3.6); CPK CREATINE PHOSPHOKINASE 95 U/L (39-308); CREATININE FOR GFR 0.68 MG/DL (0.70-1.30); ETHYL ALCOHOL (ETHANOL) < 0.003 % (0.000-0.010); GLOMERULAR FILTRATION RATE > 60.0 (>49); GLUCOSE, FASTING 90 MG/DL (70-100); MB/CK RELATIVE INDEX 1.26 (< OR =4); POTASSIUM SERUM 4.6 MEQ/L (3.5-5.1); SALICYLATE LEVEL < 1.7 MG/DL (5.0-30.0); SODIUM LEVEL 135 MEQ/L (136-145); TOTAL PROTEIN 7.1 GM/DL (6.4-8.2); TROPONIN I < 0.02 NG/ML (< 0.10)
[2019-12-11] MEDS ORDERED: MAALOX 30 ML SUSP *UDC PO PRN (13:30)
[2019-12-11] MEDS ORDERED: MOM 30ML SUSPENSION UDC PO PRN (13:30)
[2019-12-11] MEDS ORDERED: LORazepam 2 MG TAB PO PRN (13:30)
[2019-12-11] MEDS ORDERED: ACETAMINOPHEN TAB 650MG DOSE (2X325MG) PO PRN (13:30)
[2019-12-11 14:00] LABS: AMPHETAMINES LEVEL URINE NEGATIVE (NEGATIVE); BARBITURATES URINE NEGATIVE (NEGATIVE); BENZODIAZEPINES URINE NEGATIVE (NEGATIVE); CANNABINOIDS URINE NEGATIVE (NEGATIVE); COCAINE METABOLITE URINE NEGATIVE (NEGATIVE); METHADONE URINE NEGATIVE (NEGATIVE); OPIATES URINE NEGATIVE (NEGATIVE); PHENCYCLIDINE URINE NEGATIVE (NEGATIVE)
--- NOTE | 2019-12-11 14:03 | HPEPDOC ---
[facility] Medical History & Physical Date of Admission December 11, 2019 Date of Service: December 11, 2019 History and Physical CHIEF COMPLAINT: AMS HISTORY OF PRESENT ILLNESS: Patient is a 69-year-old male with PMH of hx of tonic-clonic seizures, EtOH abuse, medical noncompliance, HTN, presenting with altered mental status. He was found on [facility] and noted to be altered by police. Patient admits to consuming one beer daily, and reports that he was going to an appointment with his ex- who is in [place]. In the ED, ex- was contacted today that she was physically in [place] and they were not going to an appointment. He reports last seizure was approximately 6 months ago, he reports medication compliance. His last alcohol consumption was 3-4 days ago, he generally consumes a beer a day. He currently denies any headaches, changes in vision, chest pain, shortness of breath, nausea, vomiting, abdominal pain, pain in the upper lower extremities, no focal or neurological deficits, no issues with voiding or stooling, no rashes. In the ED, CBC grossly within normal limits, MCV 91, VBG also within normal limits, CMP reveals sodium of 135, creatinine 0.68, calcium 8.7, AST 41, PLT 55, alkaline phosphatase 168, ammonia 12, troponin 1 less than 0.02, TSH 2.92, lactic acid 1.1, pending urinalysis, salicylates less than 1.7, acetaminophen less than 2.0, alcohol less than 0.003. CT head reveals no acute processes upon my evaluation, pending official results. ROS: 10 point review systems negative except per above. PMH: See above. PSH: None Family history: Reviewed and noncontributory. Social history: Former smoker, No tobacco, or illicits, currently resides in , on disability due to seizures, is in good terms with his first ex- (patient has 2 ex-'s) Medications: Reviewed Allergies: NKDA PHYSICAL EXAMINATION: VITAL SIGNS: Please see below. GENERAL: Elderly male in no acute distress, eating his lunch, able to speak in full sentences without difficulty HEENT: Normocephalic, atraumatic, moist mucous membranes NECK: Supple CARDIOVASCULAR EXAMINATION: S1, S2, no murmurs RESPIRATORY EXAMINATION: CTAB ABDOMINAL EXAMINATION: Soft, nontender, nondistended, positive bowel sounds EXTREMITIES: no edema SKIN: No rash NEUROLOGICAL EXAMINATION: Alert and oriented 3, no focal deficits, able to grossly move his upper and lower extremities PSYCHIATRIC EXAMINATION: Calm and cooperative, appropriate affect, denies SI or HI Patient is a 69-year-old male with PMH of hx of tonic-clonic seizures, EtOH abuse, medical noncompliance, HTN, presenting with altered mental status. #Encephalopathy, consider EtOH influence. Acute versus chronic, consider influence of history of seizures. Will consult psychiatry to evaluate for capacity. Place patient under [facility] protocol for alcohol withdrawal. Follow-up blood cultures.. Repeat a.m. labs. -d/w Dr. Bueno, psych, will need further social work eval on capacity, will f/u with Dr. Bueno after eval on dispo recs #Hyponatremia, likely secondary to dehydration, currently tachycardic, start IVF #History of seizures: Continue home medications, seizure precautions DVT ppx: enox Code: full Dispo: Observation, DC home 12/12/19 Vital Signs Vital Signs Date Time Temp Pulse Resp B/P (MAP) Pulse Ox O2 Delivery O2 Flow Rate FiO2 12/11/19 11:05 97.2 12/11/19 11:03 109 20 135/86 (102) 97 Laboratory Data Labs 24H Laboratory Tests 2 12/11/19 11:30: POC Glucose (Misc Panel) 90, POC Sodium (Misc Panel) 133L, POC Potassium (Misc Panel) 4.5, POC Chloride (Misc Panel) 103, POC Total CO2 (Misc Panel) 21.0L, POC Blood Urea Nitrogen (Misc Panel 6L, POC Ionized Calcium (Misc Panel) 4.2L, POC Creatinine (Misc Panel) 0.7, POC Hematocrit (Misc Panel) 46.0 12/11/19 11:32: Immature Granulocyte % (Auto) 0.4, Neutrophils (%) (Auto) 77.7H, Lymphocytes (%) (Auto) 12.2L, Monocytes (%) (Auto) 8.0H, Eosinophils (%) (Auto) 1.2, Basophils (%) (Auto) 0.5, Neutrophils # (Auto) 5.8, Lymphocytes # (Auto) 0.9L, Monocytes # (Auto) 0.6, Eosinophils # (Auto) 0.1, Basophils # (Auto) 0.0, Nucleated Red Blood Cells % (auto) 0.0, Blood Gas Bicarbonate Standard 23.3, Venous Blood pH 7.385, Venous Blood Partial Pressure CO2 41.6, Venous Blood Partial Pressure O2 43.1, Venous Blood Total Carbon Dioxide 25.6, Venous Blood HCO3 24.3, Venous Blood Oxygen Saturation 74.7, Venous Blood Base Excess -0.7, Anion Gap 8, Glomerular Filtration Rate > 60.0, Osmolality 278L, Lactic Acid Level 1.1, Calcium Level 8.7L, Total Bilirubin 0.7, Direct Bilirubin 0.3H, Aspartate Amino Transf (AST/SGOT) 41H, Alanine Aminotransferase (ALT/SGPT) 55, Alkaline Phosphatase 168H, Ammonia 12, Total Creatine Kinase 95, Creatine Kinase MB 1.2, Creatine Kinase MB Relative Index 1.26, Troponin I < 0.02, Total Protein 7.1, Albumin 3.5, Albumin/Globulin Ratio 0.97L, Thyroid Stimulating Hormone (TSH) 2.920, Salicylates Level < 1.7L, Acetaminophen Level < 2.0L, Ethyl Alcohol Level < 0.003 CBC/BMP Laboratory Tests 12/11/19 11:32 Microbiology Microbiology 12/11/19 Blood Culture, Received Pending 12/11/19 Blood Culture, Received Pending Home Medications Scheduled Levetiracetam (Levetiracetam) 750 Mg Tablet, 750 MG PO BID Allergies Coded Allergies: No Known Drug Allergies (Verified Allergy, Unknown, 07/18/19) A-FIB/CHADSVASC A-FIB History Current/History of A-Fib/PAF?: No EVAN KYLE MD December 11, 2019 13:19
[2019-12-11] MEDS ORDERED: NS 1,000 ML IV SCH (14:15)
[2019-12-11 14:34] VITALS: BP 140/99
[2019-12-11 14:36] VITALS: BP 140/99
[2019-12-11] MEDS: MULTIVITAMINS/MINERALS THERAP 1 TAB PO SCH (15:31)
[2019-12-11] MEDS: FOLIC ACID 1 MG TAB PO SCH (15:31)
[2019-12-11] MEDS: THIAMINE 100 MG TAB PO SCH ×2 (15:38→20:27)
[2019-12-11 16:07] VITALS: BP 127/95
[2019-12-11] MEDS: NS 1,000 ML IV SCH (20:27)
[2019-12-11] MEDS: levETIRAcetam 250MG TABLET (KEPPRA) PO SCH (20:27)
[2019-12-11 22:00] VITALS: BP 127/92
[2019-12-12 06:00] VITALS: BP 147/81
[2019-12-12 06:14] LABS: HEMATOCRIT 42.6 % (42.0-52.0); HEMOGLOBIN 14.7 g/dl (13.5-17.5); MEAN CORPUSCULAR HEMOGLOBIN 31.4 pg (27.0-33.0); MEAN CORPUSCULAR HGB CONC 34.5 g/dl (32.0-36.5); PLATELET COUNT, AUTOMATED 174 10^3/uL (150-450); RED BLOOD COUNT 4.68 10^6/uL (4.30-6.10); WHITE BLOOD COUNT 6.4 10^3/uL (4.0-10.0)
[2019-12-12 06:34] LABS: BLOOD UREA NITROGEN 6 MG/DL (7-18); CALCIUM LEVEL 8.5 MG/DL (8.8-10.2); CARBON DIOXIDE LEVEL 28 MEQ/L (21-32); CHLORIDE LEVEL 102 MEQ/L (98-107); CREATININE FOR GFR 0.71 MG/DL (0.70-1.30); GLOMERULAR FILTRATION RATE > 60.0 (>49); GLUCOSE, FASTING 103 MG/DL (70-100); POTASSIUM SERUM 3.9 MEQ/L (3.5-5.1); SODIUM LEVEL 136 MEQ/L (136-145)
--- NOTE | 2019-12-12 08:29 | ECGEPIP ---
[facility] - ED Test Date: 2019-12-11 Pat Name: NEFTALI FINCH Department: Room: - Gender: Male Stable Attendant: ladonna : 1950 Requested By: Elva Mcfarlane Order Number: [id number] Reading MD: Ricardo Luz Measurements Intervals [place] Rate: 104 P: 32 WI: 169 QRS: -36 QRSD: 82 T: 20 QT: 343 QTc: 453 Interpretive Statements SINUS TACHYCARDIA POOR R WAVE PROGRESSION BASELINE ARTIFACT AFFECTS INTERPRETATION Electronically Signed on 12-12-2019 8:29:03 EDT by Ricardo Luz
[2019-12-12] MEDS ORDERED: ENOXAPARIN 40MG/0.4ML SYRINGE (J1650 PER 10MG) SC SCH (09:00)
[2019-12-12] MEDS: FOLIC ACID 1 MG TAB PO SCH (09:01)
[2019-12-12] MEDS: THIAMINE 100 MG TAB PO SCH (09:02)
[2019-12-12] MEDS: levETIRAcetam 250MG TABLET (KEPPRA) PO SCH (09:02)
[2019-12-12] MEDS: MULTIVITAMINS/MINERALS THERAP 1 TAB PO SCH (09:02)
[2019-12-12] MEDS: NS 1,000 ML IV SCH (09:20)
--- NOTE | 2019-12-12 10:04 | DS.PDOC ---
Discharge Summary General Date of Admission December 11, 2019 at 13:18 Date of Discharge 12/12/19 Discharge Summary PROCEDURES PERFORMED DURING STAY: None. ADMITTING DIAGNOSES: 1. Metabolic encephalopathy. DISCHARGE DIAGNOSES: 1.. Encephalopathy, likely new baseline, consider influences from history of chronic alcoholism, and history of seizures. COMPLICATIONS/CHIEF COMPLAINT: Metabolic Encephalopathy. HISTORY OF PRESENT ILLNESS/HOSPITAL COURSE: Patient is a 69-year-old male with PMH of hx of tonic-clonic seizures, EtOH abuse and dependence, medical noncompliance, HTN, presenting with altered mental status. He was found on [facility] and noted to be altered by police. Patient admits to consuming one beer daily, and reports that he was going to an appointment with his ex- who is in [place]. In the ED, ex- was contacted today that she was physically in [place] and they were not going to an appointment. He reports last seizure was approximately 6 months ago, he reports medication compliance. His last alcohol consumption was 3-4 days ago, he generally consumes a beer a day. He currently denies any headaches, changes in vision, chest pain, shortness of breath, nausea, vomiting, abdominal pain, pain in the upper lower extremities, no focal or neurological deficits, no issues with voiding or stooling, no rashes. In the ED, CBC grossly within normal limits, MCV 91, VBG also within normal limits, CMP reveals sodium of 135, creatinine 0.68, calcium 8.7, AST 41, PLT 55, alkaline phosphatase 168, ammonia 12, troponin 1 less than 0.02, TSH 2.92, lactic acid 1.1, pending urinalysis, salicylates less than 1.7, acetaminophen less than 2.0, alcohol less than 0.003. CT head reveals no acute processes upon my evaluation, pending official results. He was kept overnight and placed on CIWA protocol, he did not require any additional Ativan, Keppra level was obtained 12/11/19 pending results, he resumed Keppra twice a day. Labs reviewed prior to discharge, pseudohyponatremia, resolved, glucose slightly elevated at 103, creatinine 0.71, CBC grossly within normal limits, UDS negative.Discussed with psychiatry on capacity, unfortunately, he takes time to evaluate for capacity, patient denies any SI or HI. Patient lives independently at [facility], moved in there in August 2019. Support system includes first ex- who lives in [place], eldest daught Irma tirado through his first , first son after eldest daughter through his first , second son through his second ex-, Tobias. Long discussion with sonTobias ([phone]) discharge planning who lives in [place] and works at a food plant. DaughterIrma ([phone]) lives in [place]. Discharge planning, DC home with home health, continue Keppra twice a day, follow-up with Samuel guillaume as an outpatient, follow-up with PCP and neurology in 1 week. All questions were answered. DISCHARGE MEDICATIONS: Please see below. ALLERGIES: Please see below. PHYSICAL EXAMINATION ON DISCHARGE: PHYSICAL EXAMINATION: VITAL SIGNS: Please see below. GENERAL: Elderly male in no acute distress, eating his lunch, able to speak in full sentences without difficulty HEENT: Normocephalic, atraumatic, moist mucous membranes NECK: Supple CARDIOVASCULAR EXAMINATION: S1, S2, no murmurs RESPIRATORY EXAMINATION: CTAB ABDOMINAL EXAMINATION: Soft, nontender, nondistended, positive bowel sounds EXTREMITIES: no edema SKIN: No rash NEUROLOGICAL EXAMINATION: Alert and oriented 3, no focal deficits, able to grossly move his upper and lower extremities PSYCHIATRIC EXAMINATION: Calm and cooperative, appropriate affect, denies SI or HI DISCHARGE CONDITION: Stable. TIME SPENT ON DISCHARGE: 35 minutes. Vital Signs/I&Os Vital Signs Date Time Temp Pulse Resp B/P (MAP) Pulse Ox O2 Delivery O2 Flow Rate FiO2 12/12/19 06:00 98.1 75 18 147/81 (103) 97 12/11/19 14:05 Room Air I&O- Last 24 Hours up to 6 AM 12/12/19 06:00 Intake Total 540 ml Output Total 750 ml Balance -210 ml Laboratory Data Labs 24H Laboratory Tests 2 12/11/19 11:30: POC Glucose (Misc Panel) 90, POC Sodium (Misc Panel) 133L, POC Potassium (Misc Panel) 4.5, POC Chloride (Misc Panel) 103, POC Total CO2 (Misc Panel) 21.0L, POC Blood Urea Nitrogen (Misc Panel 6L, POC Ionized Calcium (Misc Panel) 4.2L, POC Creatinine (Misc Panel) 0.7, POC Hematocrit (Misc Panel) 46.0 12/11/19 11:32: Immature Granulocyte % (Auto) 0.4, Neutrophils (%) (Auto) 77.7H, Lymphocytes (%) (Auto) 12.2L, Monocytes (%) (Auto) 8.0H, Eosinophils (%) (Auto) 1.2, Basophils (%) (Auto) 0.5, Neutrophils # (Auto) 5.8, Lymphocytes # (Auto) 0.9L, Monocytes # (Auto) 0.6, Eosinophils # (Auto) 0.1, Basophils # (Auto) 0.0, Nucleated Red Blo od Cells % (auto) 0.0, Blood Gas Bicarbonate Standard 23.3, Venous Blood pH 7.385, Venous Blood Partial Pressure CO2 41.6, Venous Blood Partial Pressure O2 43.1, Venous Blood Total Carbon Dioxide 25.6, Venous Blood HCO3 24.3, Venous Blood Oxygen Saturation 74.7, Venous Blood Base Excess -0.7, Anion Gap 8, Glomerular Filtration Rate > 60.0, Osmolality 278L, Lactic Acid Level 1.1, Calcium Level 8.7L, Total Bilirubin 0.7, Direct Bilirubin 0.3H, Aspartate Amino Transf (AST/SGOT) 41H, Alanine Aminotransferase (ALT/SGPT) 55, Alkaline Phosphatase 168H, Ammonia 12, Total Creatine Kinase 95, Creatine Kinase MB 1.2, Creatine Kinase MB Relative Index 1.26, Troponin I < 0.02, Total Protein 7.1, Albumin 3.5, Albumin/Globulin Ratio 0.97L, Thyroid Stimulating Hormone (TSH) 2.920, Salicylates Level < 1.7L, Acetaminophen Level < 2.0L, Ethyl Alcohol Level < 0.003 12/11/19 13:20: Urine Color YELLOW, Urine Appearance CLEAR, Urine pH 5.0, Urine Specific [place] 1.014, Urine Protein NEGATIVE, Urine Glucose (UA) NEGATIVE, Urine Ketones TRACEH, Urine Blood NEGATIVE, Urine Nitrite NEGATIVE, Urine Bilirubin NEGATIVE, Urine Urobilinogen 0.2, Urine Leukocyte Esterase NEGATIVE, Urine WBC (Auto) 1, Urine RBC (Auto) 1, Urine Hyaline Casts (Auto) 0, Urine Bacteria (Auto) NEGATIVE, Urine Squamous Epithelial Cells 0, Urine Mucus (Auto) SMALL, Urine Sperm (Auto) , Urine Opiates Screen NEGATIVE, Urine Methadone Screen NEGATIVE, Urine Barbiturates Screen NEGATIVE, Urine Phencyclidine Screen NEGATIVE, Urine Amphetamines Screen NEGATIVE, Urine Benzodiazepines Screen NEGATIVE, Urine Cocaine Metabolite Screen NEGATIVE, Urine Cannabinoids Screen NEGATIVE 12/11/19 18:27: 12/12/19 05:48: Nucleated Red Blood Cells % (auto) 0.0, Anion Gap 6L, Glomerular Filtration Rate > 60.0, Calcium Level 8.5L CBC/BMP Laboratory Tests 12/11/19 11:32 12/12/19 05:48 Microbiology Microbiology 12/11/19 Blood Culture, Received Pending 12/11/19 Blood Culture, Received Pending Discharge Medications Scheduled Levetiracetam (Levetiracetam) 750 Mg Tablet, 750 MG PO BID, (Reported) Allergies Coded Allergies: No Known Drug Allergies (Verified Allergy, Unknown, 07/18/19) EVAN KYLE MD December 12, 2019 10:01
--- NOTE | 2019-12-13 12:06 | REP ---
REPEAT DICTATION CT BRAIN WITHOUT CONTRAST: HISTORY: Altered mental status. Preliminary report is provided at the time of the exam. The study is presented for repeat dictation on December 19, 2019. Comparison is made with prior CT study from October 02, 2019. Comparison is made with prior MRI images from August 13, 2019. FINDINGS: Preliminary digital bleacher pulp radiograph is unremarkable. Bone window settings show no bony destructive lesion. Visualized paranasal sinuses are clear. On soft tissue window settings, there is generalized volume loss. There are old areas of encephalomalacia bilaterally in the temporal lobes unchanged from comparison CT and MRI images. No acute infarction is appreciated. No extra-axial fluid collection is seen. No mass or midline shift is observed. There is no evidence of intracranial hemorrhage. IMPRESSION: Old encephalomalacia areas seen bilaterally in the temporal lobes. No acute intracranial abnormality. Electronically Signed by Sukhdeep oGnzales MD 12/13/2019 01:15 P
--- NOTE | 2019-12-15 18:12 | WAPSY-ES ---
DATE: 12/12/2019 I was asked to see this patient by the hospitalist, concerns regarding his mental state. There were some concerns regarding capacity as well. I have informed the hospitalist that further information would be required, particularly collateral information, and I suggested that patient and family services be involved in obtaining it, particularly regarding the patient's home situation, and more specific questions regarding capacity. I reviewed the chart today, and I understand that the patient has been seen by the hospitalist, today as well, and patient and family services had contacted the family, and the family has been contacted, and the patient is being discharged today. Therefore, I will not be seeing the patient. I called the bowser, spoke with the nurse, and confirmed that he is being discharged.
== END 2019-12-12 11:40 | disposition home health service (06) ==
LOC: EDBD 10:54 → M ED 10:54 → M ED INP 13:18 → M MS5PR 14:25
PROVIDERS: ADMIT Family Medicine; ATTEND Family Medicine
DX: G93.41 Metabolic encephalopathy (principal); G40.909 Epilepsy, unspecified, not intractable, without status epilepticus; I10 Essential (primary) hypertension; F10.10 Alcohol abuse, uncomplicated; Z87.891 Personal history of nicotine dependence; Z79.899 Other long term (current) drug therapy; Z91.14 Patient's other noncompliance with medication regimen
CPT/HCPCS: 36415; 70450; 80047; 80048; 80076; 80180; 80307; 81001; 82140; 82550; 82553; 82803; 83605; 83930; 84443; 84484; 85025; 85027; 87040; 87077; 93005; 93041; 96372; 96374; 99285; G0378; G0480; J1650

== ENCOUNTER 2020-01-08 16:44 | Emergency (ER) | payer MEDICARE ==
[~2020-01-08] VITALS: Ht 167.6 cm; Wt 70.5 kg
[2020-01-08] MEDS ORDERED: MULTIVITAMIN -ADULT INJECTION 10 ML, THIAMINE INJection 100 MG, FOLIC ACID 1 MG in NS 1... IV ONE (17:30)
--- NOTE | 2020-01-08 17:45 | REPVR ---
PROCEDURE INFORMATION: Exam: CT Head Without Contrast Exam date and time: 01/08/2020 5:28 PM Age: 69 years old Clinical indication: Altered mental status/memory loss; Confusion or disorientation TECHNIQUE: Imaging protocol: Computed tomography of the head without contrast. Radiation optimization: All CT scans at this facility use at least one of these dose optimization techniques: automated exposure control; mA and/or kV adjustment per patient size (includes targeted exams where dose is matched to clinical indication); or iterative reconstruction. COMPARISON: CT Head without contrast 12/11/2019 11:47 AM FINDINGS: Brain: Chronic encephalomalacia changes in the anterior inferior right temporal lobe. Nonspecific hypodensities of the periventricular and deep subcortical white matter, most likely secondary to chronic small vessel ischemic change. No intracranial hemorrhage or extra-axial fluid collection. No evidence of mass effect or midline shift. Staton-white matter differentiation is normal. Ventricles: Prominence of the ventricles and sulci, most likely attributed to parenchymal volume loss. Bones/joints: No acute osseus lesion or fracture. Sinuses: Unremarkable as visualized. Mastoid air cells: Unremarkable. Soft tissues: Unremarkable. IMPRESSION: 1. No acute intracranial pathology. 2. Other chronic findings, as above. Electronically signed by: Rolo Burt On 01/08/2020 17:44:58 PM
[2020-01-08 18:10] LABS: BASO # 0.1 10^3/uL (0.0-0.2); BASO % 1.1 % (0.0-1.0); EOS # 0.3 10^3/uL (0.0-0.5); EOS % 4.3 % (0.0-3.0); HEMATOCRIT 41.3 % (42.0-52.0); HEMOGLOBIN 14.1 g/dl (13.5-17.5); LYMPH # 2.2 10^3/uL (1.5-5.0); LYMPH % 31.1 % (24.0-44.0); MEAN CORPUSCULAR HEMOGLOBIN 30.7 pg (27.0-33.0); MEAN CORPUSCULAR HGB CONC 34.1 g/dl (32.0-36.5); MONO # 0.6 10^3/uL (0.0-0.8); MONO % 8.1 % (0.0-5.0); NEUTROPHILS # 3.9 10^3/uL (1.5-8.5); NEUTROPHILS % 55.1 % (36.0-66.0); PLATELET COUNT, AUTOMATED 198 10^3/uL (150-450); RED BLOOD COUNT 4.59 10^6/uL (4.30-6.10)
--- NOTE | 2020-01-08 18:34 | REP ---
Single view chest: 01/08/2020. Indication: Altered mental status. Comparison: October 13, 2019. Findings: Tiny residual left-sided pleural effusion is present. There is no pneumothorax. Plate-like atelectasis within the lung bases is present. No air space consolidations otherwise noted. Impression: Improved left-sided pleural effusion. No acute cardiopulmonary process detected. Electronically Signed by Tobi Kaur DO 01/08/2020 06:26 P
[2020-01-08 18:46] LABS: ALBUMIN 3.4 GM/DL (3.2-5.2); BILIRUBIN,DIRECT 0.1 MG/DL (0.0-0.2); BILIRUBIN,TOTAL 0.3 MG/DL (0.2-1.0); ETHYL ALCOHOL (ETHANOL) 0.315 % (0.000-0.010); THYROID STIMULATING HORMONE 0.857 uIU/ML (0.358-3.740); TOTAL PROTEIN 7.1 GM/DL (6.4-8.2)
[2020-01-08] MEDS ORDERED: PAXI10TA12 PO (18:50)
[2020-01-08] MEDS ORDERED: LORazepam 2 MG/ML VIAL IV PRN (19:00)
[2020-01-08] MEDS ORDERED: NS 1,000 ML IV SCH (19:00)
--- NOTE | 2020-01-08 20:20 | ECGEPIP ---
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
[2020-01-09 03:34] VITALS: BP 109/78
[2020-01-09] MEDS ORDERED: FOLIC ACID 1 MG in NS 50 ML IV SCH (09:00)
[2020-01-09] MEDS ORDERED: ENOXAPARIN 40MG/0.4ML SYRINGE (J1650 PER 10MG) SC SCH (09:00)
[2020-01-09] MEDS ORDERED: THIAMINE 200MG/2ML VIAL (J3411 PER 100MG) IM SCH (09:00)
--- NOTE | 2020-01-10 13:42 | ED PDOC ---
Post-Departure Follow-Up dr sood faxed formal report of cxr for fu Lul Wilson MD Jan 10, 2020 13:42
== END 2020-01-09 04:03 | disposition home or self-care (01) ==
LOC: M ED 16:44 → EDBD 16:44 → UNDOADMIN 18:48 → M ED INP 18:48 → CANBEDREQ 18:50 → ENRESERV 19:40 → M ED 01-09 04:03
DX: G40.509 Epileptic seizures related to external causes, not intractable, without status epilepticus (principal); F10.288 Alcohol dependence with other alcohol-induced disorder
CPT/HCPCS: 36415; 36600; 70450; 71045; 80047; 80076; 82140; 82803; 83605; 84443; 84484; 85025; 93005; 93041; 96360; 96361; 99285; J3411

== ENCOUNTER 2020-03-04 13:00 | Emergency (ER) | payer MEDICARE ==
[~2020-03-04 13:00] MED LIST changes: +PAXI10TA12 PO
--- NOTE | 2020-04-17 16:44 | ECGEPIP ---
SINUS TACHYCARDIA SEE SCANNED DOWNTIME REPORT MTDD
[2020-04-20 07:28] LABS: INR 1.01; PARTIAL THROMBOPLASTIN TIME 26.9 SECONDS (24.2-38.5); PROTHROMBIN TIME 13.5 SECONDS (12.5-14.3)
[2020-04-20 08:33] LABS: APPEARANCE, URINE CLEAR (CLEAR); BACTERIA, URINE AUTO NEGATIVE (NEGATIVE); BILIRUBIN, URINE AUTO NEGATIVE (NEGATIVE); BLOOD, URINE BLOOD NEGATIVE (NEGATIVE); COLOR, URINE YELLOW (YELLOW); GLUCOSE, URINE (UA) AUTO NEGATIVE (NEGATIVE); KETONE, URINE AUTO NEGATIVE (NEGATIVE); LEUKOCYTE ESTERASE, URINE AUTO NEGATIVE (NEGATIVE); MUCUS, URINE SMALL (NEGATIVE); NITRITE, URINE AUTO NEGATIVE (NEGATIVE); PROTEIN, URINE AUTO NEGATIVE (NEGATIVE); RBC, URINE AUTO 3 /HPF (0-3); SPECIFIC GRAVITY URINE AUTO 1.014 (1.002-1.035); SQUAMOUS EPITHELIAL CELL UR AU 0 /HPF (0-6); UROBILINOGEN, URINE AUTO 0.2 mg/dL (0.0-2.0); WBC, URINE AUTO 1 /HPF (0-3)
[2020-04-20 09:29] LABS: BASO % 0.6 % (0.0-1.0); EOS # 0.1 10^3/uL (0.0-0.5); HEMATOCRIT 45.6 % (42.0-52.0); HEMOGLOBIN 15.5 g/dl (13.5-17.5); LYMPH # 1.2 10^3/uL (1.5-5.0); MEAN CORPUSCULAR HEMOGLOBIN 31.7 pg (27.0-33.0); MEAN CORPUSCULAR VOLUME 93.3 fl (80.0-96.0); MONO # 0.6 10^3/uL (0.0-0.8); MONO % 8.3 % (0.0-5.0); NEUTROPHILS # 4.7 10^3/uL (1.5-8.5); NEUTROPHILS % 70.5 % (36.0-66.0); PLATELET COUNT, AUTOMATED 244 10^3/uL (150-450); RED BLOOD COUNT 4.89 10^6/uL (4.30-6.10); WHITE BLOOD COUNT 6.6 10^3/uL (4.0-10.0)
[2020-05-18 13:05] LABS: BLOOD UREA NITROGEN 5 MG/DL (7-18); CALCIUM LEVEL 8.7 MG/DL (8.8-10.2); CARBON DIOXIDE LEVEL 26 MEQ/L (21-32); CHLORIDE LEVEL 105 MEQ/L (98-107); CK-MB VALUE MASS 1.1 NG/ML (<3.6); CPK CREATINE PHOSPHOKINASE 91 U/L (39-308); CREATININE FOR GFR 0.68 MG/DL (0.70-1.30); ETHYL ALCOHOL (ETHANOL) 0.003 % (0.000-0.010); GLOMERULAR FILTRATION RATE > 60.0 (>49); GLUCOSE, FASTING 99 MG/DL (70-100); MB/CK RELATIVE INDEX 1.21 (< OR =4); POTASSIUM SERUM 4.1 MEQ/L (3.5-5.1); SODIUM LEVEL 137 MEQ/L (136-145); TROPONIN I < 0.02 NG/ML (< 0.10)
[2020-05-18 13:05] LABS: AMPHETAMINES LEVEL URINE NEGATIVE (NEGATIVE); BARBITURATES URINE NEGATIVE (NEGATIVE); BENZODIAZEPINES URINE NEGATIVE (NEGATIVE); CANNABINOIDS URINE NEGATIVE (NEGATIVE); COCAINE METABOLITE URINE NEGATIVE (NEGATIVE); METHADONE URINE NEGATIVE (NEGATIVE); OPIATES URINE NEGATIVE (NEGATIVE); PHENCYCLIDINE URINE NEGATIVE (NEGATIVE)
== END 2020-03-04 16:45 | disposition home or self-care (01) ==
LOC: M ED 13:00
DX: R41.82 Altered mental status, unspecified (principal); G93.89 Other specified disorders of brain; G40.509 Epileptic seizures related to external causes, not intractable, without status epilepticus; Z88.8 Allergy status to other drugs, medicaments and biological substances; Z79.899 Other long term (current) drug therapy; R94.31 Abnormal electrocardiogram [ECG] [EKG]; Z87.820 Personal history of traumatic brain injury; F10.288 Alcohol dependence with other alcohol-induced disorder; R42 Dizziness and giddiness
CPT/HCPCS: 36415; 70450; 70544; 70551; 71046; 80048; 80180; 80307; 81001; 82140; 82550; 82553; 84439; 84443; 84484; 85025; 85610; 85730; 87086; 93005; 99284; G0480

== ENCOUNTER → 2020-03-07 | Outpatient (CLI) | payer MEDICARE, MEDICAID ==
--- NOTE | 2020-04-23 07:30 | REP ---
LEFT RIB SERIES HISTORY: Chest wall mass. TECHNIQUE: Four views of the left ribs are performed. FINDINGS: There are again noted multiple healing left rib fractures. Specifically, the left 2nd through 8th ribs are fractured in two places, posteriorly and anterolaterally. There is healing callous formation. There is some associated left pleural thickening. IMPRESSION: Multiple healing left rib fractures, specifically the left 2nd through 8th ribs, which are all fractured in two places as discussed above. MTDD
--- NOTE | 2020-04-23 07:31 | REP ---
CHEST X-RAY: 2-VIEWS HISTORY: Chest wall mass. COMPARISON: Chest from 03/04/20 and 10/13/19. FINDINGS: 2-views of the chest are performed. There are multiple old rib fracture bilaterally. The lungs are clear without evidence of acute infiltrate. The heart is not enlarged. The mediastinal silhouette is unremarkable and unchanged. There are mild degenerative changes of the spine. IMPRESSION: No active pulmonary disease. Multiple old bilateral rib fractures. MTDD
== END ==
LOC: M RAD 09:15
PROVIDERS: ATTEND Family Medicine Addiction Medicine
DX: R22.2 Localized swelling, mass and lump, trunk (principal); Z87.81 Personal history of (healed) traumatic fracture

== ENCOUNTER 2020-04-09 08:17 | Emergency (ER) | payer MEDICAID, MEDICARE ==
[~2020-04-09] VITALS: Ht 162.6 cm; Wt 69.4 kg
--- NOTE | 2020-04-09 09:07 | REPVR ---
PROCEDURE INFORMATION: Exam: XR Left Wrist Exam date and time: 04/09/2020 8:47 AM Age: 69 years old Clinical indication: Injury or trauma; Fall; Initial encounter; Swelling (edema); Wrist; Left TECHNIQUE: Imaging protocol: XR Left wrist. Views: 3 or more views. COMPARISON: No relevant prior studies available. FINDINGS: Bones/joints: There is a comminuted intra-articular distal radius fracture with mild diastasis but no significant displacement of the fracture components. Minimal dorsal angulation. The bones are otherwise intact. No dislocation. Soft tissues: Soft tissue swelling. Vascular calcification. IMPRESSION: Comminuted intra-articular distal radius fracture. Electronically signed by: Ahsan Blakely On 04/09/2020 09:07:41 AM
[2020-04-09 09:55] VITALS: BP 132/88
== END 2020-04-09 10:06 | disposition home or self-care (01) ==
LOC: M ED 08:17
DX: S52.572A Other intraarticular fracture of lower end of left radius, initial encounter for closed fracture (principal); W01.0XXA Fall on same level from slipping, tripping and stumbling without subsequent striking against object, initial encounter; Y92.59 Other trade areas as the place of occurrence of the external cause; F17.290 Nicotine dependence, other tobacco product, uncomplicated; F10.10 Alcohol abuse, uncomplicated; N40.0 Benign prostatic hyperplasia without lower urinary tract symptoms; Z79.899 Other long term (current) drug therapy

== ENCOUNTER 2020-09-08 17:56 | Emergency (ER) | payer MEDICARE ==
[~2020-09-08] VITALS: Ht 160 cm; Wt 77.0 kg
[2020-09-08 18:40] LABS: BASO # 0.1 10^3/uL (0.0-0.2); BASO % 1.1 % (0.0-1.0); EOS # 0.3 10^3/uL (0.0-0.5); EOS % 3.8 % (0.0-3.0); HEMATOCRIT 44.6 % (42.0-52.0); HEMOGLOBIN 15.3 g/dl (13.5-17.5); LYMPH # 2.7 10^3/uL (1.5-5.0); LYMPH % 40.8 % (24.0-44.0); MEAN CORPUSCULAR HEMOGLOBIN 30.5 pg (27.0-33.0); MEAN CORPUSCULAR HGB CONC 34.3 g/dl (32.0-36.5); MONO # 0.5 10^3/uL (0.0-0.8); MONO % 6.9 % (0.0-5.0); NEUTROPHILS # 3.1 10^3/uL (1.5-8.5); NEUTROPHILS % 47.1 % (36.0-66.0); PLATELET COUNT, AUTOMATED 303 10^3/uL (150-450); RED BLOOD COUNT 5.01 10^6/uL (4.30-6.10); WHITE BLOOD COUNT 6.7 10^3/uL (4.0-10.0)
[2020-09-08 19:04] LABS: ALBUMIN 3.6 GM/DL (3.2-5.2); ALT/SGPT 29 U/L (12-78); BILIRUBIN,DIRECT < 0.1 MG/DL (0.0-0.2); BILIRUBIN,TOTAL 0.2 MG/DL (0.2-1.0); BLOOD UREA NITROGEN 5 MG/DL (7-18); CALCIUM LEVEL 8.9 MG/DL (8.8-10.2); CARBON DIOXIDE LEVEL 23 MEQ/L (21-32); CHLORIDE LEVEL 108 MEQ/L (98-107); CK-MB VALUE MASS 1.8 NG/ML (<3.6); CPK CREATINE PHOSPHOKINASE 153 U/L (39-308); CREATININE FOR GFR 0.73 MG/DL (0.70-1.30); GLOMERULAR FILTRATION RATE > 60.0 (>49); GLUCOSE, FASTING 99 MG/DL (70-100); MB/CK RELATIVE INDEX 1.18 (< OR =4); POTASSIUM SERUM 4.1 MEQ/L (3.5-5.1); SODIUM LEVEL 142 MEQ/L (136-145); TOTAL PROTEIN 7.3 GM/DL (6.4-8.2); TROPONIN I < 0.02 NG/ML (< 0.10)
--- NOTE | 2020-09-08 19:28 | REPVR ---
PROCEDURE INFORMATION: Exam: CT Head Without Contrast Exam date and time: 09/08/2020 6:53 PM Age: 69 years old Clinical indication: Altered mental status/memory loss TECHNIQUE: Imaging protocol: Computed tomography of the head without contrast. Radiation optimization: All CT scans at this facility use at least one of these dose optimization techniques: automated exposure control; mA and/or kV adjustment per patient size (includes targeted exams where dose is matched to clinical indication); or iterative reconstruction. COMPARISON: CT Head without contrast 03/04/2020 10:43 AM FINDINGS: Brain: Encephalomalacia in bilateral temporal lobes. There are moderate periventricular and subcortical lucencies consistent with chronic microvascular ischemic changes. The bland-white differentiation is maintained. No hemorrhage. No edema. Cerebral ventricles: No ventriculomegaly. Bones/joints: Unremarkable. No acute fracture. Paranasal sinuses: Visualized sinuses are unremarkable. No fluid levels. Mastoid air cells: Visualized mastoid air cells are well aerated. Soft tissues: Unremarkable. IMPRESSION: No acute intracranial abnormality. Chronic microvascular ischemic changes. Electronically signed by: Keshav Greenwood On 09/08/2020 19:28:22 PM
[2020-09-08 20:00] VITALS: BP 109/72
--- NOTE | 2020-09-09 08:56 | ECGEPIP ---
[facility] - ED Test Date: 2020-09-08 Pat Name: NEFTALI FINCH Department: Room: - Gender: Male Line Fixer: ty : 1950 Requested By: BABS Alexander Order Number: [id number] Reading MD: Elva Mcfarlane Measurements Intervals [place] Rate: 81 P: 33 LA: 199 QRS: -26 QRSD: 92 T: 41 QT: 384 QTc: 446 Interpretive Statements SINUS RHYTHM BORDERLINE LEFT AXIS DEVIATION SIMILAR 01/08/20 Electronically Signed on 09-09-2020 8:56:02 EST by Elva Mcfarlane
== END 2020-09-08 20:14 | disposition home or self-care (01) ==
LOC: M ED 17:56
DX: F10.229 Alcohol dependence with intoxication, unspecified (principal); Y90.1 Blood alcohol level of 20-39 mg/100 ml; G93.41 Metabolic encephalopathy; Z79.899 Other long term (current) drug therapy; F17.210 Nicotine dependence, cigarettes, uncomplicated

== ENCOUNTER 2021-01-09 12:59 | Emergency (ER) | payer MEDICARE ==
[~2021-01-09] VITALS: Ht 160 cm; Wt 90.9 kg
[~2021-01-09 12:59] MED LIST changes: -ELIQ5TAB PO; -LISI20TA33 PO
[2021-01-09 14:33] LABS: HEMATOCRIT 49.3 % (42.0-52.0); HEMOGLOBIN 17.1 g/dl (13.5-17.5); MEAN CORPUSCULAR HEMOGLOBIN 32.2 pg (27.0-33.0); MEAN CORPUSCULAR HGB CONC 34.7 g/dl (32.0-36.5); MEAN CORPUSCULAR VOLUME 92.8 fl (80.0-96.0); PLATELET COUNT, AUTOMATED 266 10^3/uL (150-450); RED BLOOD COUNT 5.31 10^6/uL (4.30-6.10); WHITE BLOOD COUNT 8.4 10^3/uL (4.0-10.0)
[2021-01-09 14:45] LABS: INR 0.97; PARTIAL THROMBOPLASTIN TIME 26.8 SECONDS (24.2-38.5); PROTHROMBIN TIME 13.1 SECONDS (12.5-14.3)
[2021-01-09 14:58] LABS: BLOOD UREA NITROGEN 5 MG/DL (7-18); CALCIUM LEVEL 9.3 MG/DL (8.8-10.2); CARBON DIOXIDE LEVEL 26 MEQ/L (21-32); CHLORIDE LEVEL 103 MEQ/L (98-107); CREATININE FOR GFR 0.71 MG/DL (0.70-1.30); GLOMERULAR FILTRATION RATE > 60.0 (>49); GLUCOSE, FASTING 93 MG/DL (70-100); POTASSIUM SERUM 4.4 MEQ/L (3.5-5.1); SODIUM LEVEL 135 MEQ/L (136-145)
[2021-01-09 19:15] VITALS: BP 169/106
[2021-01-09] MEDS ORDERED: LISI20TA33 PO (21:00)
[2021-01-09] MEDS ORDERED: APIXABAN 5 MG TAB (ELIQUIS) PO ONE (21:00)
[2021-01-09] MEDS ORDERED: ELIQ5TAB PO (21:00)
[2021-01-09 22:00] VITALS: BP 125/86
== END 2021-01-09 22:14 | disposition home or self-care (01) ==
LOC: M ED 12:59
DX: I82.412 Acute embolism and thrombosis of left femoral vein (principal); I10 Essential (primary) hypertension; R41.82 Altered mental status, unspecified; G40.909 Epilepsy, unspecified, not intractable, without status epilepticus; F10.10 Alcohol abuse, uncomplicated; Z87.891 Personal history of nicotine dependence; Z79.01 Long term (current) use of anticoagulants; Z79.899 Other long term (current) drug therapy

== ENCOUNTER → 2021-01-09 | Outpatient (CLI) | payer MEDICARE ==
[~2021-01-09] MED LIST changes: +ELIQ5TAB PO; +LISI20TA33 PO
--- NOTE | 2021-01-09 11:33 | REP ---
INDICATION: LEG EDEMA COMPARISON: None. TECHNIQUE: Real time compression and duplex Doppler interrogation of the left lower extremity deep venous system is performed, including the right common femoral vein.Compression of the left peroneal and posterior tibial veins is performed. FINDINGS: The left common femoral vein is compressible with transducer pressure and demonstrates normal spontaneous and phasic flow, without evidence of deep venous thrombosis. There is nonocclusive thrombus in the mid femoral vein extending peripherally throughout the popliteal vein. The right common femoral vein demonstrates no thrombus.The visualized left peroneal and posterior tibial veins demonstrate no thrombus. Incidental note is made of what appears to be 2 communicating vessels between the mid aspect of the femoral vein and adjacent femoral artery with arterial waveforms noted in this portion of the mid femoral vein. IMPRESSION: Nonocclusive thrombus left femoral vein mid aspect extending peripherally throughout the popliteal vein. Incidental note is made of what appears to be 2 communicating vessels between the mid aspect of the femoral vein and adjacent femoral artery with arterial waveforms noted in this portion of the mid femoral vein. 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 <Electronically signed by Marty Staton > 01/09/21 [id number]
== END ==
LOC: M RAD 09:39
PROVIDERS: ATTEND Family Medicine Addiction Medicine
DX: I82.412 Acute embolism and thrombosis of left femoral vein (principal)

== ENCOUNTER 2021-01-15 11:04 | Emergency (ER) | payer MEDICARE ==
[~2021-01-15] VITALS: Ht 162.6 cm; Wt 85.4 kg
[~2021-01-15 11:04] MED LIST changes: +ELIQ5TAB PO; +LISI20TA33 PO
--- NOTE | 2021-01-15 12:38 | REP ---
INDICATION: DVT/ noncompliant medication COMPARISON: 01/09/2021. TECHNIQUE: Real time compression and duplex Doppler interrogation of the left lower extremity deep venous system is performed, including the right common femoral vein.Compression of the left peroneal and posterior tibial veins is performed. FINDINGS: There is no change in the nonocclusive thrombus in the mid left femoral vein extending peripherally to the popliteal vein. Both common femoral veins demonstrate no thrombus and are fully compressible with transducer pressure. At the level of the mid aspect of the left femoral artery and vein and arterial and venous channel are again visualized. This may represent neovascularization in this region. No gross thrombus is seen in the left peroneal or posterior tibial veins, with limited evaluation due to soft tissue edema. IMPRESSION: Stable nonocclusive thrombus extending from mid left femoral vein peripherally to the popliteal vein. Thrombus in the visualized left peroneal and posterior tibial veins. <Electronically signed by aMrty Staton > 01/15/21 0119
[2021-01-15 12:48] LABS: INR 1.32; PROTHROMBIN TIME 16.7 SECONDS (12.5-14.3)
[2021-01-15 12:49] LABS: BASO % 0.6 % (0.0-1.0); EOS # 0.2 10^3/uL (0.0-0.5); EOS % 2.8 % (0.0-3.0); HEMOGLOBIN 15.8 g/dl (13.5-17.5); LYMPH # 1.4 10^3/uL (1.5-5.0); LYMPH % 19.2 % (24.0-44.0); MEAN CORPUSCULAR HEMOGLOBIN 31.9 pg (27.0-33.0); MEAN CORPUSCULAR HGB CONC 34.3 g/dl (32.0-36.5); MEAN CORPUSCULAR VOLUME 92.9 fl (80.0-96.0); MONO # 0.7 10^3/uL (0.0-0.8); MONO % 9.8 % (2.0-8.0); NEUTROPHILS # 4.9 10^3/uL (1.5-8.5); NEUTROPHILS % 67.3 % (36.0-66.0); PARTIAL THROMBOPLASTIN TIME 30.3 SECONDS (24.2-38.5); PLATELET COUNT, AUTOMATED 226 10^3/uL (150-450); RED BLOOD COUNT 4.95 10^6/uL (4.30-6.10); WHITE BLOOD COUNT 7.3 10^3/uL (4.0-10.0)
[2021-01-15 13:10] LABS: ERYTHROCYTE SEDIMENTATION RATE 4 mm/hr (0-20)
[2021-01-15 13:45] VITALS: BP 132/70
== END 2021-01-15 13:47 | disposition home or self-care (01) ==
LOC: M ED 11:04
DX: I82.412 Acute embolism and thrombosis of left femoral vein (principal); M79.662 Pain in left lower leg; I10 Essential (primary) hypertension; E78.5 Hyperlipidemia, unspecified; R41.82 Altered mental status, unspecified; G40.909 Epilepsy, unspecified, not intractable, without status epilepticus; F10.10 Alcohol abuse, uncomplicated; F33.9 Major depressive disorder, recurrent, unspecified; F41.9 Anxiety disorder, unspecified; F17.200 Nicotine dependence, unspecified, uncomplicated; Z79.01 Long term (current) use of anticoagulants; Z79.899 Other long term (current) drug therapy

== ENCOUNTER 2021-06-03 15:28 | Emergency (ER) | payer MEDICARE ==
[~2021-06-03] VITALS: Ht 162.6 cm; Wt 84.5 kg
--- OUTSIDE RECORDS SUMMARY | 2021-06-03 15:37 | CCD ---
Author Organization Unknown Address [address] [place] [address] Phone [phone] Care Team Providers Care Craft Demonstrator Name Role Phone Feng Matthew Unavailable Unavailable Allergies Code Code System Name Reaction Severity Status Onset NKDA Medications Name Status Start Date Stop Date Eliquis 5 mg tablet TAKE ONE TABLET BY MOUTH TWICE A DAY Active No t available levetiracetam 750 mg tablet TAKE ONE TABLET BY MOUTH TWICE A DAY Active No t available lisinopril 20 mg tablet TAKE ONE TABLET BY MOUTH EVERY DAY Active Not available oxycodone-acetaminophen 5 mg-325 mg tablet Completed 12/18/2020 paroxetine 10 mg tablet Active Not avai lable Problems Name Status Onset Date Source Self-injurious Behavior Active 11/04/2016 History Procedure by Method Active 11/04/2016 History Memory Finding Active 11/04/2016 History Hypokalemia Active 02/10/2017 History Elevated Blood-pressure [place] without Diagnosis of Hyperte nsion Active 06/01/2017 History Pain in Left Knee Active 08/23/2017 History Alcohol Intoxication Delirium Active 12/19/2018 Hi story Electrocardiogram Abnormal Active 12/19/2018 Histo ry Refractory Idiopathic Generalized Epilepsy Active 12/19 History Screening Procedure Active 12/19/2018 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 Histor y Fitting Procedure Active 02/14/2019 History Liver Function Tests Abnormal Active 04/29/[address] Concept Active 05/08/2019 History Mixed Anxiety and Depressive Disorder Active 03/06/2020 History Localized Swelling, Mass and Lump, Trunk Active 020 History Fracture of Shaft of Radius Active 05/08/2020 Hist ory Tobacco User Active 12/18/2020 Edema of Lower Extremity Active 12/18/2020 Dyspnea on Exertion Active 12/18/2020 Deep Venous Thrombosis Active 02/10/2021 Procedures Date Name Performed by 12/18/2020 Electrocardiogram Main [facility] [address] [place] [id number] (Work Place) 12/18/2020 US, Doppler, Venous [facility] [address], [place] [id number] (Work Place) 12/18/2020 Electrocardiogram, Routine ECG, 12 Leads Min [facility] [address] [place] [id number] (Work Place) 12/18/2020 XR, Chest, 2 View [facility] [address] [place] [address] [phone] (Work Place) 01/09/2021 US, Doppler, Venous [facility] [address] [place] [id number] (Work Place) Notes: left leg surgery, Results Lab Results Date Name Specimen Result Interpretation Description Value Range Status Address 01/15/2021 Istat Chem8+ Panel Normal Istat HCT 49.0 % 38. 0-51.0 % [facility]: [address] [place] [address] High Istat Glucose 111 mg/dL 70-105 mg/dL [facility]: [address] [place] [address] Normal Istat Sodium 139 mEq/L 136-145 mEq/L [facility]: [address] [place] [address] Normal Istat Potassium 4.6 mEq/L 3.5-5.1 mE q/L [facility]: [address] [place] [address] Normal Istat Ca++ 4.8 mg/dL 4.5-5.3 mg/dL [facility]: [address] [place] [address] Normal Istat Chloride 99 mEq/L 98-109 mEq/L [facility]: [address] [place] [address] Normal Istat CO2 23.0 mm/L 23.0-27.0 mm/L [facility]: [address] [place] [address] Low Istat BUN 3 mg/dL 8-26 mg/dL [facility]: [address] [place] [address] Normal Istat Creatinine 0.7 mg/dL 0.6-1.3 m g/dL [facility]: [address] [facility] 01/15/2021 PT/PTT, Plasma High Prothrombin Time 16. 7 seconds 12.5-14.3 seconds [facility]: 83 0 [facility] Normal Inr 1.32 [facility]: [address] [facility] Normal Partial Thromboplastin Time 30 .3 seconds 24.2-38.5 seconds [facility]: [address] [facility] 01/15/2021 C Reactive Protein, QN, Serum or Plasma Normal C Reactive Protein Quantitativ < 0.30 mg/dL 0.00-0.30 mg/dL [facility]: [address] [facility] 01/15/2021 CBC W/ Auto Diff Normal White Blood Count 7.3 10 4.0-10.0 10 [facility]: 0 [facility] Normal Red Blood Count 4.95 10 4.30-6.10 10 [facility]: [address] [facility] Normal Hemoglobin 15.8 g/dL 13.5-17.5 g/dL [facility]: 0 [facility] Normal Hematocrit 46.0 % 42.0-52.0 % [facility]: 0 [facility] Normal Mean Corpuscular Volume 92.9 fL 80.0 -96.0 fL [facility]: 0 [facility] Normal Mean Corpuscular Hemoglobin 31.9 pg 27.0-33.0 pg [facility]: [address] [facility] Normal Mean Corpuscular HGB Conc 34.3 g/dL 32.0-36.5 g/dL [facility]: 0 [facility] Normal Red Cell Distribution Width 14.0 % 1 1.5-14.5 % [facility]: 0 [facility] Normal Platelet Count, Automated 226 10 150 -450 10 [facility]: 0 [facility] High Neutrophils % 67.3 % 36.0-66.0 % [facility]: [address] [facility] Low Lymph % 19.2 % 24.0-44.0 % [facility]: [address] [facility] High Beadle % 9.8 % 2.0-8.0 % [facility]: [address] [facility] Normal Eos % 2.8 % 0.0-3.0 % [facility]: [address] [facility] Normal Baso % 0.6 % 0.0-1.0 % [facility]: [address] [facility] Normal Immature Granulocyte % 0.3 % 0-3.0 % [facility]: [address] [place] [address] Normal Nucleated Red Blood Cell % 0.0 % 0- 0 % [facility]: [address] [facility] Normal Neutrophils # 4.9 10 1.5-8.5 10 [facility]: [address] [facility] Low Lymph # 1.4 10 1.5-5.0 10 [facility]: [address] [facility] Normal Beadle # 0.7 10 0.0-0.8 10 [facility]: 0 [facility] Normal Eos # 0.2 10 0.0-0.5 10 [facility]: [address] [facility] Normal Baso # 0.0 10 0.0-0.2 10 [facility]: [address] [facility] 01/15/2021 ESR (Erythrocyte Sedimentation Rate), Blood Nor mal Erythrocyte Sedimentation Rate 4 mm/HR 0-20 mm/HR [facility]: 0 [facility] 01/09/2021 Cbc Normal White Blood Count 8.4 10 4.0-10. 0 10 [facility]: [address] [facility] Normal Red Blood Count 5.31 10 4.30-6.10 10 [facility]: 0 [facility] Normal Hemoglobin 17.1 g/dL 13.5-17.5 g/dL [facility]: [address] [facility] Normal Hematocrit 49.3 % 42.0-52.0 % [facility]: 0 [facility] Normal Mean Corpuscular Volume 92.8 fL 80.0 -96.0 fL [facility]: 0 [facility] Normal Mean Corpuscular Hemoglobin 32.2 pg 27.0-33.0 pg [facility]: [address] [place] [address] Normal Mean Corpuscular HGB Conc 34.7 g/dL 32.0-36.5 g/dL [facility]: [address] [place] [address] Normal Red Cell Distribution Width 13.8 % 1 1.5-14.5 % [facility]: [address] [place] [address] Normal Platelet Count, Automated 266 10 150 -450 10 [facility]: 0 [facility] Normal Nucleated Red Blood Cell % 0.0 % 0- 0 % [facility]: 0 [facility] 01/09/2021 PT/PTT, Plasma Normal Prothrombin Time 13. 1 seconds 12.5-14.3 seconds [facility]: 83 0 [facility] Normal Inr 0.97 [facility]: [address] [place] [address] Normal Partial Thromboplastin Time 26 .8 seconds 24.2-38.5 seconds [facility]: 0 [facility] 01/09/2021 BMP, Serum or Plasma Normal Glucose, Fastin g 93 mg/dL 70-100 mg/dL [facility]: 83 0 [facility] Low Blood Urea Nitrogen 5 mg/dL 7-18 mg/ dL [facility]: 0 [facility] Normal Creatinine for GFR 0.71 mg/dL 0.70-1 .30 mg/dL [facility]: 0 [facility] Normal Glomerular Filtration Rate > 60.0 >4 9 [facility]: 0 [facility] Low Sodium Level 135 mEq/L 136-145 mEq/L [facility]: [address] [facility] Normal Potassium Serum 4.4 mEq/L 3.5-5.1 mE q/L Final [facility]: [address] [facility] Normal Chloride Level 103 mEq/L 98-107 mEq/ L Final [facility]: [address] [facility] Normal Carbon Dioxide Level 26 mEq/L 21-32 mEq/L Final [facility]: [address] [facility] Low Anion Gap 6 mEq/L 8-16 mEq/L Final [facility]: [address] [facility] Normal Calcium Level 9.3 mg/dL 8.8-10.2 mg/ dL Final [facility]: [address] [facility] 01/09/2021 Levetiracetam, Serum Normal Levetiracetam ( Keppra) 10.6 ug/mL 10.0-40.0 ug/mL Final [facility]: [address] 0 [facility] 12/11/2020 TSH, Serum or Plasma Blood venous Normal T3 Uptake 33 % 22-35 % Final [facility] [address] [facility] Blood venous Low T4 (Thyroxine), Total 4. 7 mcg/dL 4.9-10.5 mcg/dL Final [facility]: [address] [facility] Blood venous Normal Free T4 Index (T7) 1.6 1.4 -3.8 Final [facility]: [address] [facility] Blood venous Normal Tsh 1.60 mIU/L 0.40-4.50 mIU /L Final [facility]: [address] [facility] 12/11/2020 Lipid Panel, Serum Blood venous Cholesterol , Total 155 mg/dL <200 mg/dL [facility] [address] [facility] Blood venous Low HDL Cholesterol 36 mg/dL > or = 40 mg/dL Final [facility]: [address] [facility] Blood venous High Triglycerides 154 mg/dL <150 mg/dL Final [facility]: [address] [facility] Blood venous LDL-cholesterol 93 mg/dL (niraj c) <100 mg/dL (calc) Final [facility]: [address] [facility] Blood venous Chol/hdlc Ratio 4.3 calc <5.0 calc Final [facility]: [address] [facility] Blood venous Non HDL Cholesterol 119 mg/dL (calc) <130 mg/dL (calc) Final [facility]: [address] Elena zamorano [facility] Blood venous High LDL Particle Number 1257 nmol /L <1138 nmol/L Final [facility]: [address] [facility] Blood venous High LDL Small 361 nmol/L <142 nmo l/L Final [facility]: [address] [facility] Blood venous High LDL Medium 247 nmol/L <215 nm ol/L Final [facility]: [address] [facility] Blood venous Low HDL Large 3456 nmol/L >6729 n mol/L Final [facility]: [address] [facility] Blood venous ABNORMAL LDL Pattern B pattern A pat tern Final [facility]: [address] [facility] Blood venous Low LDL Peak Size 208.6 angstrom >222.9 angstrom Final [facility]: [address] [facility] Blood venous High Apolipoprotein B 93 mg/dL [facility]: [address] [facility] Blood venous Lipoprotein (a) <10 nmol/L <7 5 nmol/L Final [facility]: [address] [facility] 12/11/2020 CMP, Serum or Plasma Blood venous High Glucose 100 mg/dL 65-99 mg/dL Final [facility]: [address] [facility] Blood venous Low Urea Nitrogen (BUN) 4 mg/dL 7 -25 mg/dL Final [facility]: [address] [facility] Blood venous Normal Creatinine 0.78 mg/dL 0.70-1. 25 mg/dL Final [facility]: [address] [facility] Blood venous Normal eGFR Non-afr. Haitian 9 3 mL/min/1.73m2 > or = 60 mL/min/1.73m2 Final [facility]: [address] [facility] Blood venous Normal eGFR 10 7 mL/min/1.73m2 > or = 60 mL/min/1.73m2 Final [facility] gh: [address] [facility] Blood venous Low BUN/creatinine Ratio 5 (calc) 6-22 (calc) Final [facility]: [address] [facility] Blood venous High Sodium 147 mmol/L 135-146 mmo l/L [facility]: [address] [facility] Blood venous Normal Potassium 4.4 mmol/L 3.5-5.3 mmol/L [facility]: [address] [facility] Blood venous High Chloride 116 mmol/L 98-110 mm ol/L Final [facility]: [address] [facility] Blood venous Normal Carbon Dioxide 20 mmol/L 20-3 2 mmol/L [facility]: [address] [facility] Blood venous Low Calcium 8.2 mg/dL 8.6-10.3 mg /dL [facility]: [address] [facility] Blood venous Normal Protein, Total 6.5 g/dL 6.1-8 .1 g/dL [facility]: [address] [facility] Blood venous Low Albumin 3.5 g/dL 3.6-5.1 g/dL [facility]: [address] [facility] Blood venous Normal Globulin 3.0 g/dL (calc) 1.9- 3.7 g/dL (calc) [facility]: [address] [facility] Blood venous Normal Albumin/globulin Ratio 1 .2 (calc) 1.0-2.5 (calc) [facility]: [address] [facility] venous Normal Bilirubin, Total 0.2 mg/dL 0. 2-1.2 mg/dL Final [facility]: [address] [facility] Blood venous Normal Alkaline Phosphatase 121 U/L 35-144 U/L Final [facility]: [address] [facility] Blood venous Normal Ast 30 U/L 10-35 U/L Final [facility]: [address] [facility] Blood venous Normal Alt 23 U/L 9-46 U/L Final [facility]: [address] [facility] 12/11/2020 Levetiracetam, Serum Blood venous Low Levetirac etam 1.6 mcg/mL 12.0-46.0 mcg/mL Final [facility] [facility] CBC W/ Auto Diff Blood venous Normal White B lood Cell Count 7.6 thousand/uL 3.8-10.8 thousand/uL [facility]: [address] [facility] Blood venous Normal Red Blood Cell Count 4.4 3 million/uL 4.20-5.80 million/uL Final [facility]: [address] [facility] Blood venous Normal Hemoglobin 14.6 g/dL 13.2-17. 1 g/dL [facility]: [address] [facility] Blood venous Normal Hematocrit 42.4 % 38.5-50.0 % [facility]: [address] [facility] Blood venous Normal Mcv 95.7 fL 80.0-100.0 fL Fi nal [facility]: [address] [facility] Blood venous Normal Mch 33.0 pg 27.0-33.0 pg Fin al [facility]: [address] [facility] Blood venous Normal Mchc 34.4 g/dL 32.0-36.0 g/dL [facility]: [address] [facility] Blood venous Normal Rdw 14.5 % 11.0-15.0 % [facility]: [address] [facility] Blood venous Normal Platelet Count 260 thous and/uL 140-400 thousand/uL [facility]: [address] Elena zamorano [facility] Blood venous Normal Mpv 10.2 fL 7.5-12.5 fL Emily l [facility]: [address] [facility] Blood venous Normal Absolute Neutrophils 413 4 cells/uL 5057-0068 cells/uL [facility]: [address] [facility] Blood venous Normal Absolute Lymphocytes 219 6 cells/uL 850-3900 cells/uL [facility]: [address] [facility] Blood venous Normal Absolute Monocytes 889 c ells/uL 200-950 cells/uL [facility]: [address] Elena zamorano [facility] Blood venous Normal Absolute Eosinophils 312 cells/uL 15-500 cells/uL [facility]: [address] Elena zamor[address] [facility] Blood venous Normal Absolute Basophils 68 ce lls/uL 0-200 cells/uL Final [facility]: [address], [place] Blood venous Normal Neutrophils 54.4 % 38-80 % Fi nal [facility]: [address], [place] Blood venous Normal Lymphocytes 28.9 % 15-49 % Fi nal [facility]: [address], [place] Blood venous Normal Monocytes 11.7 % 0-13 % Final [facility]: [address], [place] Blood venous Normal Eosinophils 4.1 % 0-8 % Fin al [facility]: [address], [place] Blood venous Normal Basophils 0.9 % 0-2 % Final [facility]: [address], [place] Past Encounters 03/26/2021 Tobacco User; Deep Venous Thrombosis Feng Matthew MD: [address] [place] [address], Ph. 01/15/2021 Deep Venous Thrombosis of Lower Extremity Feng Matthew MD: [address] [place] [address], Ph. 12/30/2020 SARS-CoV-2 Vaccination Feng Matthew MD: [address] [place] [address], Ph. 12/18/2020 Refractory Idiopathic Generalized Epilepsy; Tobacco User; Edema of Lower Extremity; Alcohol Intoxication Delirium Feng Matthew MD: [address] [place] [address], Ph. 12/11/2020 Feng Matthew MD: [address] [place] [address], Ph. 09/17/2020 Refractory Idiopathic Generalized Epilepsy; Mixed Anxiety and Depressive Disorder; Elevated Blood-pressure Reading without Diagnosis of Hypertension Feng Matthew MD: [address] [facility], [facility] [address], [place] [address], Ph. Social History Tobacco Smoking Status Smoker, Current Status Unknown Notes: Cigar smoker 1 a month Vaccine List Vaccine Type COVID-19 vaccine, vector-nr, [id number], PF , 0.5 mL .5 mL Plan of Care Reminders Provider Appointments None recorded. Lab None recorded. Referral None recorded. Procedures None recorded. Surgeries None recorded. Imaging None recorded. Vitals 03/26/2021 09:00AM TELEHEALTH 20 Height 60 in 01/15/2021 10:00AM ED FOLLOW-UP Height Weight BMI Blood Pressure 60 in 188 lbs 36.7 kg/m2 120/86 mm[Hg] 12/18/2020 09:40AM ESTABLISHED [id number] Height Weight BMI Blood Pressure 60 in 169 lbs 6 oz 33.1 kg/m2 131/83 mm[Hg] 12/11/2020 09:40AM NURSE LAB COLLECTION Height 60 in 09/17/2020 08:40AM TELEHEALTH 20 Height 60 in 05/08/2020 Height Weight BMI Blood Pressure 60 in 156 lbs 6.4 oz 30.66 kg/m2 122/86 mm[Hg ] 03/06/2020 Height Weight BMI Blood Pressure 60 in 154 lbs 30.18 kg/m2 117/82 mm[Hg] 12/20/2019 Height Weight BMI Blood Pressure 60 in 153 lbs 29.99 kg/m2 122/83 mm[Hg] 09/25/2019 Height Weight BMI Blood Pressure 60 in 162 lbs 31.75 kg/m2 111/77 mm[Hg] 06/20/2019 Height Weight BMI Blood Pressure 60 in 161 lbs 31.56 kg/m2 118/83 mm[Hg] 05/08/2019 Height Weight BMI Blood Pressure 60 in 166 lbs 6.08 oz 32.61 kg/m2 104/69 mm[H g] 02/14/2019 Height Weight BMI Blood Pressure 60 in 171 lbs 33.52 kg/m2 132/89 mm[Hg] 12/19/2018 Height Weight BMI Blood Pressure 60 in 167 lbs 4 oz 32.78 kg/m2 132/93 mm[Hg]
--- OUTSIDE RECORDS SUMMARY | 2021-06-03 15:37 | CCD | Continuity of Care Document ---
Author Author Sylvain DICK DPM Organization Unknown Address [address] [place] [address], [facility] [address] [place] [address] Phone [phone] Care Team Providers Care Motor Block Mechanic Name Role Phone MD Feng Matthew AUTM [phone] Problems Description No Information Available Social History Type Date Description Comments Sex Unknown ETOH Use Currently consumes alcohol Tobacco Use Start: Unknown End: Unknown Patient is a former smoker cigar a month Allergies, Adverse Reactions, Alerts Description No Known Drug Allergies Medications Active Medications SIG Qnty Indications Ordering Provide r Date Ammonium Lactate 12% Cream apply to feet daily 140gm George Dick DPM 03/26/2021 Levetiracetam 750mg Tablets Take One Tablet By Mouth Twice A Day Unknown Paroxetine HCL 10mg Tablets MD Feng Matthew Eliquis 5mg Tablets Take One Tablet By Mouth Twice A Day Unknown Lisinopril 20mg Tablets Take One Tablet By Mouth Every Day Unknown Immunizations Description No Information Available Vital Signs Date Vital Result Comment 03/26/2021 10:58am Height 63 inches 5'3" Weight 200.00 lb BP Systolic 142 mmHg BP Diastolic 90 mmHg Heart Rate 88 /min BMI (Body Mass Index) 35.4 kg/m2 Results Description No Information Available Procedures Date Code Description Status 03/26/2021 70795 Office/Outpatient New Low MDM 30 -44 Minutes Completed 03/26/2021 96407 Debridement 6-10 Nails Electric Completed Medical Devices Description No Information Available Encounters Type Date Location Provider Dx Diagnosis Office Visit 03/26/2021 10:45a [place] [facility] George Dick DPM M79.676 Pain in unspecified toe(s) B35.1 Tinea unguium L60.0 Ingrowing nail Assessments Date Code Description Provider 03/26/2021 M79.676 Pain in unspecified toe(s) Yeyo Dick DPM 03/26/2021 B35.1 Tinea unguium George Dick, FARTUN 03/26/2021 L60.0 Ingrowing nail George Dick DPM Plan of Treatment Future Appointment(s):* 06/04/2021 10:45 am - George Dick DPM at [facility] Functional Status Description No Information Available Mental Status Description No Information Available Referrals Description No Information Available
--- OUTSIDE RECORDS SUMMARY | 2021-06-03 15:38 | CCD ---
Author Author [facility] Organization [facility] Address Unknown Phone Unavailable Care Team Providers Care [facility] General Name Role Phone Daphne Matthew MD Unavailable Unavailable Daphne Matthew MD Unavailable Unavailable Daphne Matthew MD Unavailable Unavailable Daphne Matthew MD Unavailable Unavailable Daphne Matthew MD Unavailable Unavailable Daphne Matthew MD Unavailable Unavailable Daphne Matthew MD Unavailable Unavailable Daphne Matthew MD Unavailable Unavailable Daphne Matthew MD Unavailable Unavailable Daphne Matthew MD Unavailable Unavailable Daphne Matthew MD Unavailable Unavailable Daphne Matthew MD Unavailable Unavailable Daphne Matthew MD Unavailable Unavailable Daphne Matthew MD Unavailable Unavailable Daphne Matthew MD Unavailable Unavailable Daphne Matthew MD Unavailable Unavailable Daphne Matthew MD Unavailable Unavailable aDphne Matthew MD Unavailable Unavailable Daphne Matthew MD Unavailable Unavailable Daphne Matthew MD Unavailable Unavailable Daphne Matthew MD Unavailable Unavailable Daphne Matthew MD Unavailable Unavailable Daphne Matthew MD Unavailable Unavailable Daphne Matthew MD Unavailable Unavailable Daphne Matthew MD Unavailable Unavailable Daphne Matthew MD Unavailable Unavailable Daphne Matthew MD Unavailable Unavailable Daphne Matthew MD Unavailable Unavailable Daphne Matthew MD Unavailable Unavailable Daphne Matthew MD Unavailable Unavailable Daphne Matthew MD Unavailable Unavailable Daphne Matthew MD Unavailable Unavailable Daphne Matthew MD Unavailable Unavailable Daphne Matthew MD Unavailable Unavailable Daphne Matthew MD Unavailable Unavailable Daphne Matthew MD Unavailable Unavailable Daphne Matthew MD Unavailable Unavailable Daphne Matthew MD Unavailable Unavailable Daphne Matthew MD Unavailable Unavailable Daphne Matthew MD Unavailable Unavailable Daphne Matthew MD Unavailable Unavailable Daphne Matthew MD Unavailable Unavailable Daphne Matthew MD Unavailable Unavailable Daphne Matthew MD Unavailable Unavailable Daphne Matthew MD Unavailable Unavailable Daphne Matthew MD Unavailable Unavailable Daphne Matthew MD Unavailable Unavailable Daphne Matthew MD Unavailable Unavailable Daphne Matthew MD Unavailable Unavailable Daphne Matthew MD Unavailable Unavailable Daphne Matthew MD Unavailable Unavailable Daphne Matthew MD Unavailable Unavailable Daphne Matthew MD Unavailable Unavailable Daphne Matthew MD Unavailable Unavailable Daphne Matthew MD Unavailable Unavailable Daphne Matthew MD Unavailable Unavailable Daphne Matthew MD Unavailable Unavailable Daphne Matthew MD Unavailable Unavailable Daphne Matthew MD Unavailable Unavailable Daphne Matthwe MD Unavailable Unavailable Daphne Matthew MD Unavailable Unavailable Daphne Matthew MD Unavailable Unavailable Daphne Matthew MD Unavailable Unavailable Daphne Matthew MD Unavailable Unavailable Daphne Matthew MD Unavailable Unavailable Daphne Matthew MD Unavailable Unavailable Daphne Matthew MD Unavailable Unavailable Daphne Matthew MD Unavailable Unavailable Daphne Matthew MD Unavailable Unavailable Daphne Matthew MD Unavailable Unavailable Daphne Matthew MD Unavailable Unavailable Daphne Matthew MD Unavailable Unavailable Daphne Matthew MD Unavailable Unavailable Daphne Matthew MD Unavailable Unavailable Daphne Matthew MD Unavailable Unavailable Daphne Matthew MD Unavailable Unavailable Daphne Matthew MD Unavailable Unavailable Daphne Matthew MD Unavailable Unavailable Daphne Matthew MD Unavailable Unavailable Daphne Matthew MD Unavailable Unavailable Daphne Matthew MD Unavailable Unavailable Daphne Matthew MD Unavailable Unavailable Daphne Matthew MD Unavailable Unavailable Daphne Matthew MD Unavailable Unavailable Daphne Matthew MD Unavailable Unavailable Daphne Matthew MD Unavailable Unavailable Daphne Matthew MD Unavailable Unavailable Daphne Matthew MD Unavailable Unavailable Daphne Matthew MD Unavailable Unavailable Daphne Matthew MD Unavailable Unavailable Daphne Matthew MD Unavailable Unavailable Daphne Matthew MD Unavailable Unavailable Daphne Matthew MD Unavailable Unavailable Elidia Segura MD Unavailable Unavailable Elidia Segura MD Unavailable Unavailable Elidia Segura MD Unavailable Unavailable Elidia Segura MD Unavailable Unavailable Elidia Segura MD Unavailable Unavailable Elidia Segura MD Unavailable Unavailable Elidia Segura MD Unavailable Unavailable Elidia Segura MD Unavailable Unavailable Elidia Segura MD Unavailable Unavailable Elidia Segura MD Unavailable Unavailable Elidia Segura MD Unavailable Unavailable Elidia Segura MD Unavailable Unavailable Elidia Segura MD Unavailable Unavailable Elidia Segura MD Unavailable Unavailable Elidia Segura MD Unavailable Unavailable Elidia Segura MD Unavailable Unavailable Elidia Segura MD Unavailable Unavailable Fish, Elidia Montalvo MD Unavailable Unavailable Fish, Elidia Montalvo MD Unavailable Unavailable Fish, Elidia Montalvo MD Unavailable Unavailable Fish, Elidia Montalvo MD Unavailable Unavailable Fish, Elidia Montalvo MD Unavailable Unavailable Fish, Elidia Montalvo MD Unavailable Unavailable Fish, Elidia Montalvo MD Unavailable Unavailable Fish, Elidia Montalvo MD Unavailable Unavailable Fish, Elidia Montalvo MD Unavailable Unavailable Fish, Elidia Montalvo MD Unavailable Unavailable Fish, B Selvin ANTUNEZ Unavailable Unavailable Fish, B Selvin ANTUNEZ Unavailable Unavailable Fish, B Selvin ANTUNEZ Unavailable Unavailable Fish, B Selvin ANTUNEZ Unavailable Unavailable Fish, B Selvin ANTUNEZ Unavailable Unavailable Fish, Elidia Montalvo MD Unavailable Unavailable Fish, Elidia Montalvo MD Unavailable Unavailable Fish, B Selvin ANTUNEZ Unavailable Unavailable Fish, B Selvin ANTUNEZ Unavailable Unavailable Fish, B Selvin ANTUNEZ Unavailable Unavailable Fish, B Selvin ANTUNEZ Unavailable Unavailable Fish, B Selvin ANTUNEZ Unavailable Unavailable Fish, B Selvin ANTUNEZ Unavailable Unavailable Fish, B Selvin ANTUNEZ Unavailable Unavailable Fish, B Selvin ANTUNEZ Unavailable Unavailable Fish, B Selvin ANTUNEZ Unavailable Unavailable Fish, B Selvin ANTUNEZ Unavailable Unavailable Fish, B Selvin ANTUNEZ Unavailable Unavailable Fish, B Selvin ANTUNEZ Unavailable Unavailable Fish, B Selvin ANTUNEZ Unavailable Unavailable Fish, Elidia Montalvo MD Unavailable Unavailable Fish, Elidia Montalvo MD Unavailable Unavailable Fish, Elidia Montalvo MD Unavailable Unavailable Fish, Elidia Montalvo MD Unavailable Unavailable Fish, Elidia Montalvo MD Unavailable Unavailable Fish, Elidia Montalvo MD Unavailable Unavailable Fish, Elidia Montalvo MD Unavailable Unavailable Fish, Elidia Montalvo MD Unavailable Unavailable Fish, Elidia Montalvo MD Unavailable Unavailable MAJAK, R LOW DPM Unavailable Unavailable MAJAK, R LOW DPM Unavailable Unavailable MAJAK, R LOW DPM Unavailable Unavailable MAJAK, R LOW DPM Unavailable Unavailable MAJAK, R LOW DPM Unavailable Unavailable MAJAK, R LOW DPM Unavailable Unavailable MAJAK, R LOW DPM Unavailable Unavailable MAJAK, R LOW DPM Unavailable Unavailable MAJAK, R LOW DPM Unavailable Unavailable MAJAK, R LOW DPM Unavailable Unavailable MAJAK, R LOW DPM Unavailable Unavailable MAJAK, R LOW DPM Unavailable Unavailable MAJAK, R LOW DPM Unavailable Unavailable MAJAK, R LOW DPM Unavailable Unavailable MAJAK, R LOW DPM Unavailable Unavailable MAJAK, R LOW DPM Unavailable Unavailable MAJAK, R LWO DPM Unavailable Unavailable MAJAK, R LOW DPM Unavailable Unavailable MAJAK, R LOW DPM Unavailable Unavailable MAJAK, R LOW DPM Unavailable Unavailable MAJAK, R LOW DPM Unavailable Unavailable MAJAK, R LOW DPM Unavailable Unavailable MAJAK, R LOW DPM Unavailable Unavailable MAJAK, R LOW DPM Unavailable Unavailable MAJAK, R LOW DPM Unavailable Unavailable MAJAK, R LOW DPM Unavailable Unavailable MAJAK, R LOW DPM Unavailable Unavailable MAJAK, R LOW DPM Unavailable Unavailable MAJAK, R LOW DPM Unavailable Unavailable MAJAK, R LOW DPM Unavailable Unavailable MAJAK, R LOW DPM Unavailable Unavailable DRAZEK, I RAZA PA Unavailable Unavailable DRAZEK, I RAZA PA Unavailable Unavailable DRAZEK, I RAZA PA Unavailable Unavailable DRAZEK, I RAZA PA Unavailable Unavailable DRAZEK, I RAZA PA Unavailable Unavailable DRAZEK, I RAZA PA Unavailable Unavailable DRAZEK, I RAZA PA Unavailable Unavailable DRAZEK, I RAZA PA Unavailable Unavailable DRAZEK, I RAZA PA Unavailable Unavailable DRAZEK, I RAZA PA Unavailable Unavailable DRAZEK, I RAZA PA Unavailable Unavailable DRAZEK, I RAZA PA Unavailable Unavailable DRAZEK, I RAZA PA Unavailable Unavailable DRAZEK, I RAZA PA Unavailable Unavailable DRAZEK, I RAZA PA Unavailable Unavailable DRAZEK, I RAZA PA Unavailable Unavailable DRAZEK, I RAZA PA Unavailable Unavailable DRAZEK, I RAZA PA Unavailable Unavailable DRAZEK, I RAZA PA Unavailable Unavailable DRAZEK, I RAZA PA Unavailable Unavailable DRAZEK, I RAZA PA Unavailable Unavailable DRAZEK, I RAZA PA Unavailable Unavailable DRAZEK, I RAZA PA Unavailable Unavailable DRAZEK, I RAZA PA Unavailable Unavailable DRAZEK, I RAZA PA Unavailable Unavailable DRAZEK, I RAZA PA Unavailable Unavailable DRAZEK, I RAZA PA Unavailable Unavailable DRAZEK, I RAZA PA Unavailable Unavailable DRAZEK, I RAZA PA Unavailable Unavailable DRAZEK, I RAZA PA Unavailable Unavailable Daphne Matthew MD Unavailable Unavailable Daphne Matthew MD Unavailable Unavailable Daphne Matthew MD Unavailable Unavailable Daphne Matthew MD Unavailable Unavailable Daphne Matthew MD Unavailable Unavailable Daphne Matthew MD Unavailable Unavailable Daphne Matthew MD Unavailable Unavailable Daphne Matthew MD Unavailable Unavailable Daphne Matthew MD Unavailable Unavailable Daphne Matthew MD Unavailable Unavailable Daphne Matthew MD Unavailable Unavailable Daphne Matthew MD Unavailable Unavailable Daphne Matthew MD Unavailable Unavailable Daphne Matthew MD Unavailable Unavailable Daphne Matthew MD Unavailable Unavailable Daphne Matthew MD Unavailable Unavailable Daphne Matthew MD Unavailable Unavailable Daphne Matthew MD Unavailable Unavailable Daphne Matthew MD Unavailable Unavailable Daphne Matthew MD Unavailable Unavailable Daphne Matthew MD Unavailable Unavailable Daphne Matthew MD Unavailable Unavailable Daphne Matthew MD Unavailable Unavailable Daphne Matthew MD Unavailable Unavailable Daphne Matthew MD Unavailable Unavailable Daphne Matthew MD Unavailable Unavailable Daphne Matthew MD Unavailable Unavailable Daphne Matthew MD Unavailable Unavailable Daphne Matthew MD Unavailable Unavailable Daphne Matthew MD Unavailable Unavailable Daphne Matthew MD Unavailable Unavailable Daphne Matthew MD Unavailable Unavailable Daphne Matthew MD Unavailable Unavailable Daphne Matthew MD Unavailable Unavailable Daphne Matthew MD Unavailable Unavailable Daphen Matthew MD Unavailable Unavailable Daphne Matthew MD Unavailable Unavailable Daphne Matthew MD Unavailable Unavailable Daphne Matthew MD Unavailable Unavailable Daphne Matthew MD Unavailable Unavailable Daphne Matthew MD Unavailable Unavailable Daphne Matthew MD Unavailable Unavailable Daphne Matthew MD Unavailable Unavailable Daphne Matthew MD Unavailable Unavailable Daphne Matthew MD Unavailable Unavailable Daphne Matthew MD Unavailable Unavailable Daphne Matthew MD Unavailable Unavailable Daphne Matthew MD Unavailable Unavailable Daphne Matthew MD Unavailable Unavailable Daphne Matthew MD Unavailable Unavailable Daphne Matthew MD Unavailable Unavailable Daphne Matthew MD Unavailable Unavailable Daphne Matthew MD Unavailable Unavailable Daphne Matthew MD Unavailable Unavailable Daphne Matthew MD Unavailable Unavailable Daphne Matthew MD Unavailable Unavailable Daphne Matthew MD Unavailable Unavailable Daphne Matthew MD Unavailable Unavailable Daphne Matthew MD Unavailable Unavailable Daphne Matthew MD Unavailable Unavailable Daphne Matthew MD Unavailable Unavailable Daphne Matthew MD Unavailable Unavailable Daphne Matthew MD Unavailable Unavailable Daphne Matthew MD Unavailable Unavailable Daphne Matthew MD Unavailable Unavailable Daphne Matthew MD Unavailable Unavailable Daphne Matthew MD Unavailable Unavailable Daphne Matthew MD Unavailable Unavailable Daphne Matthew MD Unavailable Unavailable Daphne Matthew MD Unavailable Unavailable Daphne Matthew MD Unavailable Unavailable Daphne Matthew MD Unavailable Unavailable Daphne Matthew MD Unavailable Unavailable Daphne Matthew MD Unavailable Unavailable Daphne Matthew MD Unavailable Unavailable Daphne Matthew MD Unavailable Unavailable Daphne Matthew MD Unavailable Unavailable Daphne Matthew MD Unavailable Unavailable Daphne Matthew MD Unavailable Unavailable Daphne Matthwe MD Unavailable Unavailable Daphne Matthew MD Unavailable Unavailable Daphne Matthew MD Unavailable Unavailable Daphne Matthew MD Unavailable Unavailable Daphne Matthew MD Unavailable Unavailable Daphne Matthew MD Unavailable Unavailable Daphne Matthew MD Unavailable Unavailable Daphne Matthew MD Unavailable Unavailable Daphne Matthew MD Unavailable Unavailable Daphne Matthew MD Unavailable Unavailable Daphne Matthew MD Unavailable Unavailable Daphne Matthew MD Unavailable Unavailable Daphne Matthew MD Unavailable Unavailable Daphne Matthew MD Unavailable Unavailable Re-disclosure Warning The records that you are about to access may contain information from federally-assisted alcohol or drug abuse programs. If such information is present, then the following federally mandated warning applies: This information has been disclosed to you from records protected by federal confidentiality rules (42 CFR part 2). The federal rules prohibit you from making any further disclosure of this information unless further disclosure is expressly permitted by the written consent of the person to whom it pertains or as otherwise permitted by 42 CFR part 2. A general authorization for the release of medical or other information is NOT sufficient for this purpose. The Federal rules restrict any use of the information to criminally investigate or prosecute any alcohol or drug abuse patient.The records that you are about to access may contain highly sensitive health information, the redisclosure of which is protected by Article 27-F of the [facility] Public Health law. If you continue you may have access to information: Regarding HIV / AIDS; Provided by facilities licensed or operated by the [facility] Office of Mental Health; or Provided by the [facility] Office for People With Developmental Disabilities. If such information is present, then the following [facility] mandated warning applies: This information has been disclosed to you from confidential records which are protected by state law. State law prohibits you from making any further disclosure of this information without the specific written consent of the person to whom it pertains, or as otherwise permitted by law. Any unauthorized further disclosure in violation of state law may result in a fine or mcfp sentence or both. A general authorization for the release of medical or other information is NOT sufficient authorization for further disc losure. Family History Family Member Name Family Member Gender Family Member Status Date o f Status Description Data Source(s) Unknown Male Problem [facility] ([facility]) Encounters Encounter Providers Location Date Indications Data Source(s ) Outpatient Attender: LOW REICH [facility] Office 03/02 10:45:00 AM EDT [facility] ([facility] Feng Matthew MD: [address] [place] [address], Ph. Attender: Feng Matthew MD [facility] Medical 03/26/2021 12:00:00 AM EDT [facility] ([facility]) Feng Matthew MD: [address] [place] [address], Ph. Attender: Feng Matthew MD [facility] Medical 01/15/2021 12:00:00 AM EDT [facility] ([facility]) Feng Matthew MD: [address] [place] [address], Ph. Attender: Feng Matthew MD [facility] Medical 01/15/2021 12:00:00 AM EDT [facility] ([facility]) Feng Matthew MD: [address] [place] [address], Ph. Attender: Feng Matthew MD [facility] Medical 12/30/2020 12:00:00 AM EDT [facility] ([facility]) Feng Matthew MD: [address] [place] [address], Ph. Attender: Feng Matthew MD [facility] Medical 12/30/2020 12:00:00 AM EDT [facility] ([facility]) Feng Matthew MD: [address] [place] [address], Ph. Attender: Feng Matthew MD [facility] Medical 12/30/2020 12:00:00 AM EDT [facility] ([facility]) Feng Matthew MD: [address] [place] [address], Ph. Attender: Feng Matthew MD [facility] Medical 12/18/2020 12:00:00 AM EDT [facility] ([facility]) Feng Matthew MD: [address] [place] [address], Ph. Attender: Feng Matthew MD [facility] Medical 12/18/2020 12:00:00 AM EDT [facility] ([facility]) Feng Matthew MD: [address] [place] [address], Ph. Attender: Feng Matthew MD [facility] Medical 12/18/2020 12:00:00 AM EDT [facility] ([facility]) Feng Matthew MD: [address] [place] [address], Ph. Attender: Feng Matthew MD [facility] Medical 12/18/2020 12:00:00 AM EDT [facility] ([facility]) Feng Matthew MD: [address] [place] [address], Ph. Attender: Feng Matthew MD [facility] Medical 12/11/2020 12:00:00 AM EDT [facility] ([facility]) Feng Matthew MD: [address] [place] [address], Ph. Attender: Feng Matthew MD [facility] Medical 12/11/2020 12:00:00 AM EDT [facility] ([facility]) Feng Matthew MD: [address] [place] [address], Ph. Attender: Feng Matthew MD [facility] Medical 12/11/2020 12:00:00 AM EDT [facility] ([facility]) Feng Matthew MD: [address] [place] [address], Ph. Attender: Feng Matthew MD [facility] Medical 12/11/2020 12:00:00 AM EDT [facility] ([facility]) Feng Matthew MD: [address] , [place] [address], Ph. Attender: Feng Matthew MD [facility] Medical 12/11/2020 12:00:00 AM EDT [facility] ([facility]) Feng Matthew MD: [address], [place] [address], Ph. Attender: Feng Matthew MD [facility] Medical 09/17/2020 12:00:00 AM EST [facility] ([facility]) Feng Matthew MD: [address], [place] [address], Ph. Attender: Feng Matthew MD [facility] Medical 09/17/2020 12:00:00 AM EST [facility] ([facility]) Feng Matthew MD: [address], [place] [address], Ph. Attender: Feng Matthew MD [facility] Medical 09/17/2020 12:00:00 AM EST [facility] ([facility]) Feng Matthew MD: [address], [place] [address], Ph. Attender: Feng Matthew MD [facility] Medical 09/17/2020 12:00:00 AM EST [facility] ([facility]) Feng Matthew MD: [address], [place] [address], Ph. Attender: Feng Matthew MD [facility] Medical 09/17/2020 12:00:00 AM EST [facility] ([facility]) Feng Matthew MD: [address], [facility] [address], [place] [address], Ph. Attender: Feng Matthew MD [facility] Medical 09/17/2020 12:00:00 AM EST [facility] ([facility]) Outpatient Attender: Selvin Segura MD Physical Therapy 05/19/2020 0 9:00:00 AM EDT [facility] ([facility]) Outpatient Attender: Feng Matthew MD 05/08/2020 10:40:01 AM EDT [facility] Outpatient Attender: Feng Matthew MD 05/08/2020 10:36:02 AM EDT [facility] Outpatient Attender: Feng Matthew MD 05/08/2020 10:36:02 AM EDT [facility] Outpatient Attender: Feng Matthew MD 05/08/2020 09:30:01 AM EDT [facility] OFFICE OUTPATIENT NEW 30 MINUTES Attender: RAZA MEDRANO Physic al Therapy 04/09/2020 10:45:00 AM EDT [facility] ([facility]) Immunizations Vaccine Date Status Description Data Source(s) COVID-19 vaccine, vector-nr, rS-Ad26, PF, 0.5 mL 12/30/2020 01:57:01 PM EDT completed .5 mL [place] ([facility]) COVID-19 vaccine, vector-nr, rS-Ad26, PF, 0.5 mL 12/30/2020 01:57:01 PM EDT completed .5 mL [facility] ([facility]) COVID-19 vaccine, vector-nr, rS-Ad26, PF, 0.5 mL 12/30/2020 01:57:01 PM EDT completed .5 mL [place] ([facility]) COVID-19 VACCINE [place] 12/30/2020 12:00:00 AM EDT [facility]: YESThis Data wa s Submitted to [facility] Via [email or web address]. Medications Medication Brand Name Start Date Product Form Dose Route Admi nistrative Instructions Pharmacy Instructions Status Indications Reaction Description Data Source(s) ammonium lactate 120 MG/ML Topical Cream Ammonium Lactate 03/26/2021 12:00:00 AM EDT active [facility] ([facility] Paroxetine Hydrochloride 10 MG Oral Tablet PAROXETINE HCL 12/22/2020 12:00:00 AM EDT tablet 90 TAKE ONE TABLET BY MOUTH LAURA RY DAY TAKE ONE TABLET BY MOUTH EVERY DAY SOLD: 12/23/2020 [facility] Paroxetine Hydrochloride 10 MG Oral Tablet PAROXETINE HCL 08/28/2020 12:00:00 AM EST tablet 30 TAKE ONE TABLET BY MOUTH LAURA RY DAY TAKE ONE TABLET BY MOUTH EVERY DAY SOLD: 08/31/2020 [facility] 750 mg 08/28/2020 12:00:00 AM EST tablet 60 TAKE ONE TABLET BY MOUTH TWICE A DAY TAKE ONE TABLET BY MOUTH TWICE A DAY SOLD: 08/31/2020 [facility] Acetaminophen 325 MG / Oxycodone Hydroch loride 5 MG Oral Tablet oxycodone- acetaminophen 5 mg-325 mg tablet oxycodone-acetaminophen 5 mg-325 mg tablet completed acetaminop hen 325 MG / oxycodone hydrochloride 5 MG Oral Tablet [facility] ([facility]) Acetaminophen 325 MG / Oxycodone Hydroch loride 5 MG Oral Tablet oxycodone- acetaminophen 5 mg-325 mg tablet oxycodone-acetaminophen 5 mg-325 mg tablet completed acetaminop hen 325 MG / oxycodone hydrochloride 5 MG Oral Tablet [facility] ([facility]) Acetaminophen 325 MG / Oxycodone Hydroch loride 5 MG Oral Tablet oxycodone- acetaminophen 5 mg-325 mg tablet oxycodone-acetaminophen 5 mg-325 mg tablet completed acetaminop hen 325 MG / oxycodone hydrochloride 5 MG Oral Tablet [facility] ([facility]) Acetaminophen 325 MG / Oxycodone Hydroch loride 5 MG Oral Tablet oxycodone- acetaminophen 5 mg-325 mg tablet oxycodone-acetaminophen 5 mg-325 mg tablet completed acetaminop hen 325 MG / oxycodone hydrochloride 5 MG Oral Tablet [facility] ([facility]) Insurance Providers Payer name Policy type / Coverage type Policy ID Covered constitution party ID Covered constitution party's relationship to lloyd Policy Lloyd Plan Information MEDICARE A [id number] Self [id number] A MEDICARE [id number] SP [id number] A MEDICAID M [id number] Self [id number] MEDICARE A [id number] Self [id number] A Medicare Wrap S [id number] S [id number] [employer] P [id number] S [id number] [employer] P [id number] S [id number] [employer] P [id number] S [id number] [employer] P [id number] S [id number] Medicare Wrap S [id number] S [id number] [employer] P [id number] S [id number] [employer] P [id number] S [id number] Medicare Wrap S [id number] S [id number] MEDICARE COMPLETE [id number] SP [id number] [employer] PLAN [facility] [id number] SP [id number] MEDICARE COMPLETE-UHC O [id number] S [id number] FORMERLY [facility] COMMUN[facility] PLAN [facility] [id number] SP [id number] MEDICARE C [id number] S [id number] A MEDICARE COMPLETE [id number] SP [id number] A MEDICARE COMPLETE-UHC O [id number] S [id number] [place] [id number] SP [id number] MEDICAID M [id number] S [id number] MEDICARE [id number] SP [id number] MEDICAID [id number] SP [id number] MEDICARE [id number] SP [id number] A Medicaid Medigap Part B [id number] Self [id number] [facility] Commercial [id number] Self [id number] Medicaid Medigap Part B [id number] Self [id number] [facility] [employer] Commercial [id number] Self [id number] MEDICARE [id number] SP [id number] A MEDICARE COMPLETE [id number] SP [id number] Problems, Conditions, and Diagnoses Code Display Name Description Problem Type Effective Dates Data Source(s) 512506557 Deep venous thrombosis Deep Venous Thrombosis Problem 02/10/2021 12:00:00 AM EDT [place] ([facility]) [id number] Dyspnea on exertion Dyspnea on Exertion Problem 0 12/18/2020 12:00:00 AM EDT [place] ([facility]) [id number] Edema of lower extremity Edema of Lower Extremity Prob [place] 12/18/2020 12:00:00 AM EDT [place] ([facility]) [id number] Tobacco user Tobacco User Problem 12/18/2020 12:00:00 A M EDT [place] ([facility]) [id number] Dyspnea on exertion Dyspnea on Exertion Problem 0 12/18/2020 12:00:00 AM EDT [place] ([facility]) [id number] Edema of lower extremity Edema of Lower Extremity Prob [place] 12/18/2020 12:00:00 AM EDT [place] ([facility]) [id number] Tobacco user Tobacco User Problem 12/18/2020 12:00:00 A M EDT [place] ([facility]) [id number] Dyspnea on exertion Dyspnea on Exertion Problem 0 12/18/2020 12:00:00 AM EDT [place] ([facility]) [id number] Edema of lower extremity Edema of Lower Extremity Prob [place] 12/18/2020 12:00:00 AM EDT [place] ([facility]) [id number] Tobacco user Tobacco User Problem 12/18/2020 12:00:00 A M EDT [place] ([facility]) 53281318 Dyspnea on exertion Dyspnea on Exertion Problem 0 12/18/2020 12:00:00 AM EDT [place] ([facility]) [id number] Edema of lower extremity Edema of Lower Extremity Prob [place] 12/18/2020 12:00:00 AM EDT [place] ([facility]) [id number] Tobacco user Tobacco User Problem 12/18/2020 12:00:00 A M EDT [place] ([facility]) S52.302A Unspecified fracture of shaf t of left radius, initial encounter for closed fracture Unspecified fracture of shaft of left ra dius, initial encounter for closed fracture 05/08/2020 10:35:25 AM EDT [facility] [id number] Fracture of shaft of radius Fracture of Shaft of Radiu s Problem 05/08/2020 12:00:00 AM EDT [place] ([facility]) [id number] Fracture of shaft of radius Fracture of Shaft of Radiu s Problem 05/08/2020 12:00:00 AM EDT [place] ([facility]) [id number] Fracture of shaft of radius Fracture of Shaft of Radiu s Problem 05/08/2020 12:00:00 AM EDT [place] ([facility]) [id number] Fracture of shaft of radius Fracture of Shaft of Radiu s Problem 05/08/2020 12:00:00 AM EDT [place] ([facility]) [id number] Fracture of shaft of radius Fracture of Shaft of Radiu s Problem 05/08/2020 12:00:00 AM EDT [place] ([facility]) [id number] Fracture of shaft of radius Fracture of Shaft of Radiu s Problem 05/08/2020 12:00:00 AM EDT [place] ([facility]) Surgeries/Procedures Procedure Description Date Indications Data Source(s) DEBRIDEMENT NAIL ANY METHOD 6/> 03/26/2021 12:00:00 AM EDT [place] ([facility] OFFICE OUTPATIENT NEW 30 MINUTES 03/26/2021 12:00:00 A M EDT [place] ([facility] CLTX DSTL RADIAL FX/EPIPHYSL SEP W/O MANJ 05/19/2020 1 2:00:00 AM EDT [place] ([facility] ) RADEX WRIST 2 VIEWS 05/19/2020 12:00:00 AM EDT [facility] ([facility]) Apply Cast Long Arm 04/09/2020 12:00:00 AM EDT [facility] ([facility]) CLTX DSTL RADIAL FX/EPIPHYSL SEP W/O MANJ 04/09/2020 1 2:00:00 AM EDT [facility] ([facility]) Results ID Date Data Source [id number] 01/15/2021 12:26:00 PM EDT [place] ([facility]) Name Value Range Interpretation Code Description Data Cata rce(s) Supporting Document(s) istat HCT 49.0 % 38.0-51.0 Istat HCT [place] ([facility]) istat glucose 111 mg/dL 70-105 Above high normal [facility] istat sodium 139 mEq/L 136-145 Istat Sodium [place] ([facility]) istat potassium 4.6 mEq/L 3.5-5.1 Istat Potassium ATHE NA ([facility]) istat Ca++ 4.8 mg/dL 4.5-5.3 Istat Ca++ [place] ([facility]) istat chloride 99 mEq/L 98-109 Istat Chloride [place] ([facility]) istat CO2 23.0 mm/L 23.0-27.0 Istat CO2 [place] ([facility]) istat creatinine 0.7 mg/dL 0.6-1.3 Istat Creatinine AT [facility] ([facility]) istat BUN 3 mg/dL 8-26 Below low normal Istat BUN [place] ( [facility]) ID Date Data Source [id number] 01/15/2021 12:25:00 PM EDT [place] ([facility]) Name Value Range Interpretation Code Description Data Cata rce(s) Supporting Document(s) erythrocyte sedimentation rate 4 mm/HR 0-20 Eryth rocyte Sedimentation Rate [place] ([facility]) ID Date Data Source [id number] 01/15/2021 12:25:00 PM EDT [place] ([facility]) Name Value Range Interpretation Code Description Data Cata rce(s) Supporting Document(s) white blood count 7.3 10 4.0-10.0 White Blood Count [place] ([facility]) hemoglobin 15.8 g/dL 13.5-17.5 Hemoglobin [place] ([facility]) red blood count 4.95 10 4.30-6.10 Red Blood Count AT[facility] NA ([facility]) mean corpuscular volume 92.9 fL 80.0-96.0 Mean Corpusc ular Volume [place] ([facility]) hematocrit 46.0 % 42.0-52.0 Hematocrit [place] ([facility]) red cell distribution width 14.0 % 11.5-14.5 Red Cell Distribution Width [place] ([facility]) mean corpuscular HGB conc 34.3 g/dL 32.0-36.5 Mean Corpu scular HGB Conc [place] ([facility]) mean corpuscular hemoglobin 31.9 pg 27.0-33.0 Mean Cor puscular Hemoglobin [place] ([facility]) platelet count, automated 226 10 150-450 Platelet C ount, Automated [place] ([facility]) lymph % 19.2 % 24.0-44.0 Below low normal Lymph % [place] ( [facility]) neutrophils % 67.3 % 36.0-66.0 Above high normal Neutrophils % A [place] ([facility]) mono % 9.8 % 2.0-8.0 Above high normal Gates % [place] ([facility]) eos % 2.8 % 0.0-3.0 Eos % [place] ([facility]) baso % 0.6 % 0.0-1.0 Baso % [place] ([facility]) nucleated red blood cell % 0.0 % 0-0 Nucleated Red Blood Cell % [place] ([facility]) immature granulocyte % 0.3 % 0-3.0 Immature Gran ulocyte % [place] ([facility]) lymph # 1.4 10 1.5-5.0 Below low normal Lymph # [place] ( [facility]) neutrophils # 4.9 10 1.5-8.5 Neutrophils # [place] ( [facility]) baso # 0.0 10 0.0-0.2 Baso # [facility] ([facility]) mono # 0.7 10 0.0-0.8 Gates # [place] ([facility]) eos # 0.2 10 0.0-0.5 Eos # [place] ([facility]) ID Date Data Source [id number] 01/15/2021 12:25:00 PM EDT [place] ([facility]) Name Value Range Interpretation Code Description Data Cata rce(s) Supporting Document(s) C reactive protein quantitativ < 0.30 0.00-0.30 C Reactive Protein Quantitativ [place] ([facility]) ID Date Data Source [id number] 01/15/2021 12:25:00 PM EDT [place] ([facility]) Name Value Range Interpretation Code Description Data Cata rce(s) Supporting Document(s) prothrombin time 16.7 seconds 12.5-14.3 Above high normal Prothrombi n Time [place] ([facility]) INR Inr [place] ([facility]) partial thromboplastin time 30.3 seconds 24.2-38.5 Partial Thromboplastin Time [place] ([facility]) ID Date Data Source [id number] 01/09/2021 07:14:00 PM EDT [place] ([facility]) Name Value Range Interpretation Code Description Data Cata rce(s) Supporting Document(s) levetiracetam (keppra) 10.6 ug/mL 10.0-40.0 Levetiracetam (Keppra) [place] ([facility]) ID Date Data Source [id number] 01/09/2021 02:17:00 PM EDT [place] ([facility]) Name Value Range Interpretation Code Description Data Cata rce(s) Supporting Document(s) glucose, fasting 93 mg/dL 70-100 Glucose, Fasting AT [facility]) blood urea nitrogen 5 mg/dL 7-18 Below low normal Blood Urea Nitrogen [place] ([facility]) creatinine for GFR 0.71 mg/dL 0.70-1.30 Creatinine for GF R [place] ([facility]) glomerular filtration rate > 60.0 >49 Glomerula r Filtration Rate [place] ([facility]) potassium serum 4.4 mEq/L 3.5-5.1 Potassium Serum A[facility] NA ([facility]) sodium level 135 mEq/L 136-145 Below low normal Sodium Level A[facility] NA ([facility]) carbon dioxide level 26 mEq/L 21-32 Carbon Dioxide Level [place] ([facility]) chloride level 103 mEq/L 98-107 Chloride Level [place] ([facility]) anion gap 6 mEq/L 8-16 Below low normal Anion Gap [place] ( [facility]) calcium level 9.3 mg/dL 8.8-10.2 Calcium Level [place] ( [facility]) ID Date Data Source [id number] 01/09/2021 02:17:00 PM EDT [place] ([facility]) Name Value Range Interpretation Code Description Data Cata rce(s) Supporting Document(s) prothrombin time 13.1 seconds 12.5-14.3 Prothrombin Time [place] ([facility]) INR Inr [place] ([facility]) partial thromboplastin time 26.8 seconds 24.2-38.5 Partial Thromboplastin Time [place] ([facility]) ID Date Data Source [id number] 01/09/2021 02:17:00 PM EDT [place] ([facility]) Name Value Range Interpretation Code Description Data Cata rce(s) Supporting Document(s) white blood count 8.4 10 4.0-10.0 White Blood Count [place] ([facility]) red blood count 5.31 10 4.30-6.10 Red Blood Count [facility] ([facility]) hemoglobin 17.1 g/dL 13.5-17.5 Hemoglobin [place] ([facility]) hematocrit 49.3 % 42.0-52.0 Hematocrit [place] ([facility]) mean corpuscular volume 92.8 fL 80.0-96.0 Mean Corpusc ular Volume [place] ([facility]) red cell distribution width 13.8 % 11.5-14.5 Red Cell Distribution Width [place] ([facility]) mean corpuscular HGB conc 34.7 g/dL 32.0-36.5 Mean Corpu scular HGB Conc [place] ([facility]) mean corpuscular hemoglobin 32.2 pg 27.0-33.0 Mean Cor puscular Hemoglobin [place] ([facility]) platelet count, automated 266 10 150-450 Platelet C ount, Automated [place] ([facility]) nucleated red blood cell % 0.0 % 0-0 Nucleated Red Blood Cell % [place] ([facility]) ID Date Data Source [id number] 01/09/2021 02:17:00 PM EDT [place] ([facility]) Name Value Range Interpretation Code Description Data Cata rce(s) Supporting Document(s) glucose, fasting 93 mg/dL 70-100 Glucose, Fasting AT [facility] ([facility]) glomerular filtration rate > 60.0 >49 Glomerula r Filtration Rate [place] ([facility]) creatinine for GFR 0.71 mg/dL 0.70-1.30 Creatinine for GF R [place] ([facility]) blood urea nitrogen 5 mg/dL 7-18 Below low normal Blood Urea Nitrogen [place] ([facility]) sodium level 135 mEq/L 136-145 Below low normal Sodium Level [facility] ([facility]) potassium serum 4.4 mEq/L 3.5-5.1 [facility] chloride level 103 mEq/L 98-107 Chloride Level [place] ([facility]) carbon dioxide level 26 mEq/L 21-32 Carbon Dioxide Level [place] ([facility]) calcium level 9.3 mg/dL 8.8-10.2 Calcium Level [place] ( [facility]) anion gap 6 mEq/L 8-16 Below low normal Anion Gap [place] ( [facility]) ID Date Data Source [id number] 01/09/2021 02:17:00 PM EDT [place] ([facility]) Name Value Range Interpretation Code Description Data Cata rce(s) Supporting Document(s) prothrombin time 13.1 seconds 12.5-14.3 Prothrombin Time [place] ([facility]) INR Inr [place] ([facility]) partial thromboplastin time 26.8 seconds 24.2-38.5 Partial Thromboplastin Time [place] ([facility]) ID Date Data Source [id number] 01/09/2021 02:17:00 PM EDT [place] ([facility]) Name Value Range Interpretation Code Description Data Cata rce(s) Supporting Document(s) white blood count 8.4 10 4.0-10.0 White Blood Count [place] ([facility]) red blood count 5.31 10 4.30-6.10 Red Blood Count [facility] ([facility]) hematocrit 49.3 % 42.0-52.0 Hematocrit [place] ([facility]) hemoglobin 17.1 g/dL 13.5-17.5 Hemoglobin [place] ([facility]) mean corpuscular hemoglobin 32.2 pg 27.0-33.0 Mean Cor puscular Hemoglobin [place] ([facility]) mean corpuscular volume 92.8 fL 80.0-96.0 Mean Corpusc ular Volume [place] ([facility]) mean corpuscular HGB conc 34.7 g/dL 32.0-36.5 Mean Corpu scular HGB Conc [place] ([facility]) red cell distribution width 13.8 % 11.5-14.5 Red Cell Distribution Width [place] ([facility]) platelet count, automated 266 10 150-450 Platelet C ount, Automated [place] ([facility]) nucleated red blood cell % 0.0 % 0-0 Nucleated Red Blood Cell % [place] ([facility]) ID Date Data Source [id number] 12/11/2020 12:00:00 AM EDT [place] ([facility]) Name Value Range Interpretation Code Description Data Cata rce(s) Supporting Document(s) Hematocrit [Volume Fraction] of Blood by Automated count 42.4 % 38.5-50.0 Hematocrit [facility] ([facility]) Erythrocytes [#/volume] in Blood by Automated count 4.43 million/uL 4.20-5.80 Red Blood Cell Count [place] ([facility]) Hemoglobin [Mass/volume] in Blood 14.6 g/dL 13.2-17.1 He moglobin [facility] ([facility]) Leukocytes [#/volume] in Blood by Automated count 7.6 thousand/uL 3 .8-10.8 White Blood Cell Count [place] ([facility]) Erythrocyte mean corpuscular hemoglobin [Entitic mass] by Automated count 33.0 pg 27.0-33.0 Mch [place] ([facility]) Erythrocyte mean corpuscular volume [Entitic volume] by Auto mated count 95.7 fL 80.0-100.0 Mcv [facility] ([facility]) Erythrocyte distribution width [Ratio] by Automated count 14.5 % 11.0-15.0 Rdw [place] ([facility]) Erythrocyte mean corpuscular hemoglobin concentration [Mass/volume] by Automated count 34.4 g/dL 32.0-36.0 Mchc [facility] ([facility]) Monocytes [#/volume] in Blood by Automated count 889 cells/uL 200-9 50 Absolute Monocytes [place] ([facility]) Lymphocytes [#/volume] in Blood by Automated count 2196 cells/uL 85 0-3900 Absolute Lymphocytes [place] ([facility]) Platelets [#/volume] in Blood by Automated count 260 thousand/uL 14 0-400 Platelet Count [place] ([facility]) Neutrophils [#/volume] in Blood by Automated count 4134 cells/uL 15 00-7800 Absolute Neutrophils [place] ([facility]) Platelet mean volume [Entitic volume] in Blood by Shreyas 10.2 f L 7.5-12.5 Mpv [place] ([facility]) Eosinophils [#/volume] in Blood by Automated count 312 cells/uL 15- 500 Absolute Eosinophils [place] ([facility]) Basophils [#/volume] in Blood by Automated count 68 cells/uL 0-200 Absolute Basophils [place] ([facility]) Neutrophils/100 leukocytes in Blood by Automated count 54.4 % 38-80 Neutrophils [place] ([facility]) Lymphocytes/100 leukocytes in Blood by Automated count 28.9 % 15-49 Lymphocytes [place] ([facility]) Eosinophils/100 leukocytes in Blood by Automated count 4.1 % 0-8 Eosinophils [place] ([facility]) Basophils/100 leukocytes in Blood by Automated count 0.9 % 0-2 Basophils [place] ([facility]) Monocytes/100 leukocytes in Blood by Automated count 11.7 % 0-13 Monocytes [place] ([facility]) ID Date Data Source [id number] 12/11/2020 12:00:00 AM EDT [place] ([facility]) Name Value Range Interpretation Code Description Data Cata rce(s) Supporting Document(s) Levetiracetam [Mass/volume] in Serum or Plasma 1.6 mcg/mL 1 2.0-46.0 Below low normal Levetiracetam [facility] ([facility]) ID Date Data Source [id number] 12/11/2020 12:00:00 AM EDT [place] ([facility]) Name Value Range Interpretation Code Description Data Cata rce(s) Supporting Document(s) Glucose [Mass/volume] in Serum or Plasma 100 mg/dL 65-99 Above high normal Glucose [facility] ([facility]) Creatinine [Mass/volume] in Serum or Plasma 0.78 mg/dL 0.70-1.25 Creatinine [facility] ([facility]) Urea nitrogen [Mass/volume] in Serum or Plasma 4 mg/dL 7-25 Below low normal Urea Nitrogen (BUN) [facility] ([facility]) Glomerular filtration rate/1.73 sq M.pre dicted among non-blacks [Volume Rate/Area] in Serum, Plasma or Blood by Creatinine-based formula (CKD-EPI) 93 mL/min/1.73m2 > or = 60 eGFR Non-afr. [place] ([facility]) Urea nitrogen/Creatinine [Mass Ratio] in Serum or Plasma 5 (calc ) 6-22 Below low normal BUN/creatinine Ratio [facility] ([facility] ter) Glomerular filtration rate/1.73 sq M.pre dicted among blacks [Volume Rate/Area] in Serum, Plasma or Blood by Creatinine-based formula (CKD-EPI) 107 mL/min/1.73m2 > or = 60 eGFR [facility] ([facility]) Sodium [Moles/volume] in Serum or Plasma 147 mmol/L 135-146 Above high normal Sodium [place] ([facility]) Potassium [Moles/volume] in Serum or Plasma 4.4 mmol/L 3.5-5.3 Potassium [place] ([facility]) Chloride [Moles/volume] in Serum or Plasma 116 mmol/L 98-110 Above high normal Chloride [facility] ([facility]) Carbon dioxide, total [Moles/volume] in Serum or Plasma 20 mmol/L 20-32 Carbon Dioxide [facility] ([facility]) Globulin [Mass/volume] in Serum by calculation 3.0 g/dL_(calc) 1.9- 3.7 Globulin [facility] ([facility]) Albumin [Mass/volume] in Serum or Plasma 3.5 g/dL 3.6-5.1 Below low normal Albumin [facility] ([facility]) Protein [Mass/volume] in Serum or Plasma 6.5 g/dL 6.1-8.1 [facility], [facility] Calcium [Mass/volume] in Serum or Plasma 8.2 mg/dL 8.6-10.3 Below low normal [facility] Albumin/Globulin [Mass Ratio] in Serum or Plasma 1.2 (calc) 1.0-2 .5 Albumin/globulin Ratio [facility] ([facility]) Alanine aminotransferase [Enzymatic activity/volume] in Seru m or Plasma 23 U/L 9-46 Alt [facility] ([facility]) Alkaline phosphatase [Enzymatic activity/volume] in Serum or Plasma 121 U/L 35-144 Alkaline Phosphatase [facility] ([facility]) Aspartate aminotransferase [Enzymatic activity/volume] in Serum or Plasma 30 U/L 10-35 Ast [facility] ([facility]) Bilirubin.total [Mass/volume] in Serum or Plasma 0.2 mg/dL 0.2-1 .2 Bilirubin, Total [facility] ([facility]) ID Date Data Source [id number] 12/11/2020 12:00:00 AM EDT [place] ([facility]) Name Value Range Interpretation Code Description Data Cata rce(s) Supporting Document(s) Cholesterol [Mass/volume] in Serum or Plasma 155 mg/dL <200 Cholesterol, Total [facility] ([facility]) Cholesterol in HDL [Mass/volume] in Serum or Plasma 36 mg/dL > or = 40 Below low normal HDL Cholesterol [facility] ([facility]) Triglyceride [Mass/volume] in Serum or Plasma 154 mg/dL <150 Above high normal Triglycerides [facility] ([facility] [facility]) Cholesterol in LDL [Mass/volume] in Serum or Plasma by calculation 93 mg/dL_(calc) <100 LDL-cholesterol [facility] ([facility]) Cholesterol.total/Cholesterol in HDL [Mass Ratio] in Serum o r Plasma 4.3 calc <5.0 Chol/hdlc Ratio [facility] ([facility]) Cholesterol non HDL [Mass/volume] in Serum or Plasma 119 mg/dL_(niraj c) <130 Non HDL Cholesterol [facility] ([facility]) Lipoprotein.beta.subparticle [Moles/volume] in Serum or Plas ma 1257 nmol/L <1138 Above high normal LDL Particle Number [facility] ([facility]) Lipoprotein.beta.subparticle.small [Moles/volume] in Serum o r Plasma 361 nmol/L <142 Above high normal LDL Small [facility] ([facility]) Lipoprotein.alpha.subparticle.large [Moles/volume] in Serum or Plasma 3456 nmol/L >6729 Below low normal HDL Large [facility] ([facility]) Cholesterol in LDL real size pattern [Identifier] in Serum or Pl asma B A Abnormal (applies to non-numeric results) LDL Pattern [facility] ([facility]) Lipoprotein.alpha 3 [Moles/volume] in Serum 247 nmol/L <215 Above high normal LDL Medium [facility] ([facility]) Lipoprotein.beta.subparticle [Entitic length] in Serum or Pl asma 208.6 angstrom >222.9 Below low normal LDL Peak Size [facility] ([facility]) Apolipoprotein B [Mass/volume] in Serum or Plasma 93 mg/dL Above high normal Apolipoprotein B [facility] ([facility]) Lipoprotein a [Moles/volume] in Serum or Plasma <10 <75 Lipoprotein (a) [facility] ([facility]) ID Date Data Source [id number] 12/11/2020 12:00:00 AM EDT [facility]) Name Value Range Interpretation Code Description Data Cata rce(s) Supporting Document(s) Thyroxine (T4) [Mass/volume] in Serum or Plasma 4.7 mcg/dL 4.9-10.5 Below low normal T4 (Thyroxine), Total [facility] ([facility]) Triiodothyronine resin uptake (T3RU) in Serum or Plasma 33 % 22 -35 T3 Uptake [place] ([facility]) Thyroxine (T4) free index in Serum or Plasma by calculation 1.4-3.8 Free T4 Index (T7) [facility] ([facility]) Thyrotropin [Units/volume] in Serum or Plasma 1.60 mIU/L 0.40-4.50 Tsh [facility]) ID Date Data Source [id number] 12/11/2020 12:00:00 AM EDT [facility]) Name Value Range Interpretation Code Description Data Cata rce(s) Supporting Document(s) Leukocytes [#/volume] in Blood by Automated count 7.6 thousand/uL 3 .8-10.8 White Blood Cell Count [facility] ([facility]) Erythrocytes [#/volume] in Blood by Automated count 4.43 million/uL 4.20-5.80 Red Blood Cell Count [facility] ([facility]) Hemoglobin [Mass/volume] in Blood 14.6 g/dL 13.2-17.1 He moglobin [facility] ([facility]) Hematocrit [Volume Fraction] of Blood by Automated count 42.4 % 38.5-50.0 Hematocrit [facility] ([facility]) Erythrocyte mean corpuscular volume [Entitic volume] by Auto mated count 95.7 fL 80.0-100.0 Mcv [facility] ([facility]) Erythrocyte distribution width [Ratio] by Automated count 14.5 % 11.0-15.0 Rdw [facility] ([facility]) Erythrocyte mean corpuscular hemoglobin concentration [Mass/volume] by Automated count 34.4 g/dL 32.0-36.0 Mchc [facility] ([facility]) Erythrocyte mean corpuscular hemoglobin [Entitic mass] by Automated count 33.0 pg 27.0-33.0 Mch [facility] ([facility]) Platelets [#/volume] in Blood by Automated count 260 thousand/uL 14 0-400 Platelet Count [facility] ([facility]) Monocytes [#/volume] in Blood by Automated count 889 cells/uL 200-9 50 Absolute Monocytes [facility] ([facility]) Platelet mean volume [Entitic volume] in Blood by Shreyas 10.2 f L 7.5-12.5 Mpv [facility] ([facility]) Lymphocytes [#/volume] in Blood by Automated count 2196 cells/uL 85 0-3900 Absolute Lymphocytes [facility] ([facility]) Neutrophils [#/volume] in Blood by Automated count 4134 cells/uL 15 00-7800 Absolute Neutrophils [facility] ([facility]) Lymphocytes/100 leukocytes in Blood by Automated count 28.9 % 15-49 Lymphocytes [facility] ([facility]) Eosinophils [#/volume] in Blood by Automated count 312 cells/uL 15- 500 Absolute Eosinophils [facility] ([facility]) Basophils [#/volume] in Blood by Automated count 68 cells/uL 0-200 Absolute Basophils [facility] ([facility]) Neutrophils/100 leukocytes in Blood by Automated count 54.4 % 38-80 Neutrophils [facility] ([facility]) Eosinophils/100 leukocytes in Blood by Automated count 4.1 % 0-8 Eosinophils [facility] ([facility]) Monocytes/100 leukocytes in Blood by Automated count 11.7 % 0-13 Monocytes [facility] ([facility]) Basophils/100 leukocytes in Blood by Automated count 0.9 % 0-2 Basophils [facility] ([facility]) ID Date Data Source [id number] 12/11/2020 12:00:00 AM EDT [facility]) Name Value Range Interpretation Code Description Data Cata rce(s) Supporting Document(s) Levetiracetam [Mass/volume] in Serum or Plasma 1.6 mcg/mL 1 2.0-46.0 Below low normal Levetiracetam [facility] ([facility]) ID Date Data Source [id number] 12/11/2020 12:00:00 AM EDT [facility]) Name Value Range Interpretation Code Description Data Cata rce(s) Supporting Document(s) Urea nitrogen [Mass/volume] in Serum or Plasma 4 mg/dL 7-25 Below low normal Urea Nitrogen (BUN) [facility] ([facility]) Glucose [Mass/volume] in Serum or Plasma 100 mg/dL 65-99 Above high normal Glucose [facility] ([facility]) Creatinine [Mass/volume] in Serum or Plasma 0.78 mg/dL 0.70-1.25 Creatinine [facility] ([facility]) Urea nitrogen/Creatinine [Mass Ratio] in Serum or Plasma 5 (calc ) 6-22 Below low normal BUN/creatinine Ratio [facility] ([facility]) Sodium [Moles/volume] in Serum or Plasma 147 mmol/L 135-146 Above high normal Sodium [facility] ([facility]) Glomerular filtration rate/1.73 sq M.pre dicted among non-blacks [Volume Rate/Area] in Serum, Plasma or Blood by Creatinine-based formula (CKD-EPI) 93 mL/min/1.73m2 > or = 60 eGFR Non-afr. [place] [facility] ([facility]) Glomerular filtration rate/1.73 sq M.pre dicted among blacks [Volume Rate/Area] in Serum, Plasma or Blood by Creatinine-based formula (CKD-EPI) 107 mL/min/1.73m2 > or = 60 eGFR [facility] ([facility]) Carbon dioxide, total [Moles/volume] in Serum or Plasma 20 mmol/L 20-32 Carbon Dioxide [place] ([facility]) Chloride [Moles/volume] in Serum or Plasma 116 mmol/L 98-110 Above high normal Chloride [place] ([facility]) Potassium [Moles/volume] in Serum or Plasma 4.4 mmol/L 3.5-5.3 Potassium [facility]) Protein [Mass/volume] in Serum or Plasma 6.5 g/dL 6.1-8.1 Protein, Total [facility]) Calcium [Mass/volume] in Serum or Plasma 8.2 mg/dL 8.6-10.3 Below low normal Calcium [place] ([facility]) Albumin [Mass/volume] in Serum or Plasma 3.5 g/dL 3.6-5.1 Below low normal Albumin [facility]) Bilirubin.total [Mass/volume] in Serum or Plasma 0.2 mg/dL 0.2-1 .2 Bilirubin, Total [place] ([facility]) Albumin/Globulin [Mass Ratio] in Serum or Plasma 1.2 (calc) 1.0-2 .5 Albumin/globulin Ratio [place] ([facility]) Globulin [Mass/volume] in Serum by calculation 3.0 g/dL_(calc) 1.9- 3.7 Globulin [place] ([facility]) Aspartate aminotransferase [Enzymatic activity/volume] in Serum or Plasma 30 U/L 10-35 Ast [facility] ([facility]) Alkaline phosphatase [Enzymatic activity/volume] in Serum or Plasma 121 U/L 35-144 Alkaline Phosphatase [place] ([facility]) Alanine aminotransferase [Enzymatic activity/volume] in Seru m or Plasma 23 U/L 9-46 Alt [facility] ([facility]) ID Date Data Source [id number] 12/11/2020 12:00:00 AM EDT [facility] ([facility]) Name Value Range Interpretation Code Description Data Cata rce(s) Supporting Document(s) Cholesterol [Mass/volume] in Serum or Plasma 155 mg/dL <200 Cholesterol, Total [facility] ([facility]) Cholesterol in HDL [Mass/volume] in Serum or Plasma 36 mg/dL > or = 40 Below low normal HDL Cholesterol [facility] ([facility]) Cholesterol in LDL [Mass/volume] in Serum or Plasma by calculation 93 mg/dL_(calc) <100 LDL-cholesterol [facility] ([facility]) Triglyceride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 comminuted intraarticulardistal radial fracture.Low dose 64 slice helical scanning through the left wrist was obtainedusing 2 mm increments and reconstructed in both coronal and sagittalplanes. 3D reconstructions were also obtained. Post processing wasperformed at the physician's workstation.There is a comminuted intraarticular distal radial fracture. Radial carpalalignment is maintained, however, there is radial lunate narrowing. Icannot confirm the integrity of the scapholunate or lunatotriquetralligaments. There is no abnormal widening of the distal radioulnar joint.There are no additional fractures.IMPRESSION:Distal radial fracture as described above.Accredited by the [place] [employer] in [place].LUIS Lui/Aida you for referring NEFTALI FINCH to our office. Electronically Signed - LILIANA CURIEL DO 04/23/20 8:56 Name Value Range Interpretation Code Description Data Cata rce(s) Supporting Document(s) Procedure Social History No Information Vital Signs ID Date Data Source UNK Name Value Range Interpretation Code Description Data Source(s) Body height 63 [in_i] 63 [in_i] MEDENT ([facility] 5'3" Body weight 200.00 [lb_av] 200.00 [lb_av] MEDEN T ([facility] Systolic blood pressure 142 mm[Hg] 142 mm[Hg] M EDENT ([facility] Diastolic blood pressure 90 mm[Hg] 90 mm[Hg] MEDENT ([facility] Heart rate 88 /min 88 /min MEDENT ([facility] Body mass index (BMI) [Ratio] 35.4 kg/m2 35.4 k g/m2 MEDMÓNICA ([facility] Body height 60 [in_i] 60 [in_i] CHANEL ([facility]) Diastolic blood pressure 86 mm[Hg] 86 mm[Hg] CHANEL ([facility]) Body height 60 [in_i] 60 [in_i] CHANEL ([facility]) Body mass index (BMI) [Ratio] 36.7 kg/m2 36.7 k g/m2 CH[facility]EL ([facility]) Systolic blood pressure 120 mm[Hg] 120 mm[Hg] A [facility] ([facility]) Body weight 3008 [oz_av] 3008 [oz_av] CHANEL ([facility]) Diastolic blood pressure 86 mm[Hg] 86 mm[Hg] CHANEL ([facility]) Body height 60 [in_i] 60 [in_i] CHANEL ([facility]) Body mass index (BMI) [Ratio] 36.7 kg/m2 36.7 k g/m2 CH[facility]EL ([facility]) Systolic blood pressure 120 mm[Hg] 120 mm[Hg] [facility] Body weight 3008 [oz_av] 3008 [oz_av] CHANEL ([facility]) Body weight 2710 [oz_av] 2710 [oz_av] CHANEL ([facility]) Diastolic blood pressure 83 mm[Hg] 83 mm[Hg] CHANEL ([facility]) Body height 60 [in_i] 60 [in_i] CH[facility]EL ([facility]) Systolic blood pressure 131 mm[Hg] 131 mm[Hg] [facility] Body mass index (BMI) [Ratio] 33.1 kg/m2 33.1 k g/m2 CH[facility]EL ([facility]) Body mass index (BMI) [Ratio] 33.1 kg/m2 33.1 k g/m2 CH[facility]EL ([facility]) Diastolic blood pressure 83 mm[Hg] 83 mm[Hg] CH[facility]EL ([facility]) Body height 60 [in_i] 60 [in_i] CH[facility]EL ([facility]) Systolic blood pressure 131 mm[Hg] 131 mm[Hg] A [place] ([facility]) Body weight 2710 [oz_av] 2710 [oz_av] CHANEL ([facility]) Diastolic blood pressure 83 mm[Hg] 83 mm[Hg] CHANEL ([facility]) Body height 60 [in_i] 60 [in_i] CHANEL ([facility]) Body mass index (BMI) [Ratio] 33.1 kg/m2 33.1 k g/m2 CHANEL ([facility]) Systolic blood pressure 131 mm[Hg] 131 mm[Hg] A [place] ([facility]) Body weight 2710 [oz_av] 2710 [oz_av] CHANEL ([facility]) Diastolic blood pressure 83 mm[Hg] 83 mm[Hg] CHANEL ([facility]) Body height 60 [in_i] 60 [in_i] CHANEL ([facility]) Body mass index (BMI) [Ratio] 33.1 kg/m2 33.1 k g/m2 CHANEL ([facility]) Systolic blood pressure 131 mm[Hg] 131 mm[Hg] A [place]AVE[place] ([facility]) Body weight 2710 [oz_av] 2710 [oz_av] CHANEL ([facility]) Body height 60 [in_i] 60 [in_i] CHANEL ([facility]) Body height 60 [in_i] 60 [in_i] CHANEL ([facility]) Body height 60 [in_i] 60 [in_i] CHANEL ([facility]) Body height 60 [in_i] 60 [in_i] CHANEL ([facility]) Body height 60 [in_i] 60 [in_i] CHANEL ([facility]) Body height 60 [in_i] 60 [in_i] CHANEL ([facility]) Body height 60 [in_i] 60 [in_i] CHANEL ([facility]) Body height 60 [in_i] 60 [in_i] CHANEL ([facility]) Body height 60 [in_i] 60 [in_i] CHANEL ([facility]) Body height 60 [in_i] 60 [in_i] CHANEL ([facility]) Body height 60 [in_i] 60 [in_i] CHANEL ([facility]) Diastolic blood pressure 86 mm[Hg] 86 mm[Hg] CHANEL ([facility]) Body height 60 [in_i] 60 [in_i] CHANEL ([facility]) Body mass index (BMI) [Ratio] 30.66 kg/m2 30.66 kg/m2 CHANEL ([facility]) Systolic blood pressure 122 mm[Hg] 122 mm[Hg] A [facility] ([facility]) Body weight 2502.4 [oz_av] 2502.4 [oz_av] ATHEN A ([facility]) Diastolic blood pressure 86 mm[Hg] 86 mm[Hg] CHANEL ([facility]) Body height 60 [in_i] 60 [in_i] CHANEL ([facility]) Body mass index (BMI) [Ratio] 30.66 kg/m2 30.66 kg/m2 CHANEL ([facility]) Systolic blood pressure 122 mm[Hg] 122 mm[Hg] A [place] ([facility]) Body weight 2502.4 [oz_av] 2502.4 [oz_av] ATHEN A ([facility]) Diastolic blood pressure 86 mm[Hg] 86 mm[Hg] CHANEL ([facility]) Body height 60 [in_i] 60 [in_i] CHANEL ([facility]) Body mass index (BMI) [Ratio] 30.66 kg/m2 30.66 kg/m2 CHANEL ([facility]) Systolic blood pressure 122 mm[Hg] 122 mm[Hg] A THENA ([facility]) Body weight 2502.4 [oz_av] 2502.4 [oz_av] ATHEN A ([facility]) Diastolic blood pressure 86 mm[Hg] 86 mm[Hg] CHANEL ([facility]) Body height 60 [in_i] 60 [in_i] CHANEL ([facility]) Body mass index (BMI) [Ratio] 30.66 kg/m2 30.66 kg/m2 CHANEL ([facility]) Systolic blood pressure 122 mm[Hg] 122 mm[Hg] A PAT[place]IC[place] ([facility]) Body weight 2502.4 [oz_av] 2502.4 [oz_av] ATHEN A ([facility]) Diastolic blood pressure 86 mm[Hg] 86 mm[Hg] CHANEL ([facility]) Body height 60 [in_i] 60 [in_i] CHANEL ([facility]) Body mass index (BMI) [Ratio] 30.66 kg/m2 30.66 kg/m2 CHANEL ([facility]) Systolic blood pressure 122 mm[Hg] 122 mm[Hg] A [place] ([facility]) Body weight 2502.4 [oz_av] 2502.4 [oz_av] ATHEN A ([facility]) Diastolic blood pressure 86 mm[Hg] 86 mm[Hg] CHANEL ([facility]) Body height 60 [in_i] 60 [in_i] CHANEL ([facility]) Body mass index (BMI) [Ratio] 30.66 kg/m2 30.66 kg/m2 CHANEL ([facility]) Systolic blood pressure 122 mm[Hg] 122 mm[Hg] A [place] ([facility]) Body weight 2502.4 [oz_av] 2502.4 [oz_av] ATHEN A ([facility]) Body temperature 98.8 [degF] 98.8 [degF] MEDENT ([facility] ) Body height 64 [in_i] 64 [in_i] MEDENT ([facility] ) 5'4" Body weight 150.00 [lb_av] 150.00 [lb_av] MEDEN T ([facility] ) Body mass index (BMI) [Ratio] 25.7 kg/m2 25.7 k g/m2 MEDENT ([facility] ) Patient Treatment Plan of Care Planned Activity Planned Date Details Description Data Source (s) Acetaminophen 325 MG / Oxycodone Hydrochloride 5 MG Oral Tablet CHANEL ([facility]) Acetaminophen 325 MG / Oxycodone Hydrochloride 5 MG Oral Tablet CHANEL ([facility]) Acetaminophen 325 MG / Oxycodone Hydrochloride 5 MG Oral Tablet CHANEL ([facility]) Acetaminophen 325 MG / Oxycodone Hydrochloride 5 MG Oral Tablet CHANEL ([facility])
[2021-06-03] MEDS ORDERED: NS 1,000 ML IV ONE (17:30)
--- NOTE | 2021-06-03 18:00 | REP ---
INDICATION: LE pain, known L DVT pain changed, knees red, warm. COMPARISON: 01/15/2021 which showed nonocclusive thrombus extending from the mid left femoral vein peripherally to the popliteal vein. This was seen to be stable when compared to even older exams. TECHNIQUE: Multiple ultrasonographic images of the deep venous structures of the bilateral lower extremity were obtained from the inguinal ligament to the ankle. Venous compression techniques, color doppler imaging, and augmentation techniques were also obtained where appropriate. As per the ACR guidelines the anterior tibial vein can not be effectively evaluated. Only compression techniques in the calf on the peroneal and posterior tibial veins was attempted/performed. FINDINGS: There is no new abnormal echogenic material seen within any of the visualized deep venous structures that would suggest new acute thrombosis. Coaptation is unremarkable throughout the deep veins not affected by the known clot. Doppler interrogation shows an expected response to respiratory variability and augmentation throughout the thigh in the deep veins unaffected by the known clot. Compression techniques in the calf showed no abnormality. The color flow images show what appears to be a normal vascular pattern throughout the thigh. IMPRESSION: There is no ultrasonographic evidence of a new deep venous thrombosis involving any of the visualized deep venous structures of the bilateral lower extremity as described above. The known nonocclusive clot seen on the left is unchanged. <Electronically signed by Vern Holland > 06/03/21 3091
--- OUTSIDE RECORDS SUMMARY | 2021-06-03 18:11 | CCD ---
Author Author [facility] Organization [facility] Address Unknown Phone Unavailable Care Team Providers Care Lab Animal Technologist Name Role Phone Daphne Matthew MD Unavailable [...] Unavailable Unavailable Daphne Matthew MD Unavailable Unavailable Dapnhe Matthew MD Unavailable Unavailable Daphne Matthew MD [...] is protected by Article 27-F of the [facility] Public Health law. If you continue you may have access to information: Regarding HIV / AIDS; Provided by facilities licensed or operated by the [facility] Office of Mental Health; or Provided by the [facility] Office for People With Developmental Disabilities. If such information is present, then the following [facility] mandated warning applies: This information has been [...] law may result in a fine or assisted sentence or both. A general authorization for the release of medical or other information is NOT sufficient authorization for further disc losure. Family History Family Member Name Family Member Gender Family Member Status Date o f Status Description Data Source(s) Unknown Male Problem [facility] ([facility]) Encounters Encounter Providers Location Date Indications Data Source(s ) Feng Matthew MD: [address] [place] [address], Ph. Attender: Feng Matthew MD [facility] Medical 06/03/2021 12:00:00 AM EDT [facility] ([facility]) Outpatient Attender: LOW REICH [facility] 03/02 10:45:00 AM EDT [facility] ([facility] Feng Matthew MD: [address] [place] [address], Ph. Attender: Feng Matthew MD [facility] Medical 03/26/2021 12:00:00 AM EDT [facility] ([facility]) Feng Matthew MD: [address] [place] [address], Ph. Attender: Feng Matthew MD [facility] Medical 03/26/2021 12:00:00 AM EDT [facility] ([facility]) Feng Matthew MD: [address] [place] [address], Ph. Attender: Feng Matthew MD [facility] Medical 01/15/2021 12:00:00 AM EDT [facility] ([facility]) Feng Matthew MD: [address] [place] [address], Ph. Attender: Feng Matthew MD [facility] Medical 01/15/2021 12:00:00 AM EDT [facility] ([facility]) Feng Matthew MD: [address] [place] [address], Ph. Attender: Feng Matthew MD [facility] Medical 01/15/2021 12:00:00 AM EDT [facility] ([facility]) Feng Matthew MD: [address] [place] [address], Ph. Attender: Feng Matthew MD [facility] Medical 12/30/2020 12:00:00 AM EDT [facility] ([facility]) Feng Matthew MD: [address] [place] [address], Ph. Attender: Feng Matthew MD [facility] Medical 12/30/2020 12:00:00 AM EDT [facility] ([facility]) Feng Matthew MD: [address] [place] [address], Ph. Attender: Feng Matthew MD [facility] Medical 12/30/2020 12:00:00 AM EDT [facility] ([facility]) Feng Matthew MD: [address] [place] [address], Ph. Attender: Feng Matthew MD [facility] Medical 12/30/2020 12:00:00 AM EDT [facility] ([facility]) Feng Matthew MD: [address] [place] [address], Ph. Attender: Feng Matthew MD [facility] Medical 12/18/2020 12:00:00 AM EDT [facility] ([facility]) Feng Matthew MD: [address] [place] [address], Ph. Attender: Feng Matthew MD [facility] Medical 12/18/2020 12:00:00 AM EDT [facility] ([facility]) Feng Matthew MD: [address] [place] [address], Ph. Attender: Feng Matthew MD [facility] Medical 12/18/2020 12:00:00 AM EDT [facility] ([facility]) Feng Matthew MD: [address] [place] [address], Ph. Attender: Feng Matthew MD [facility] Medical 12/18/2020 12:00:00 AM EDT [facility] ([facility]) Feng Matthew MD: [address] [place] [address], Ph. Attender: Feng Matthew MD [facility] Medical 12/18/2020 12:00:00 AM EDT [facility] ([facility]) Feng Matthew MD: [address] [place] [address], Ph. Attender: Feng Matthew MD [facility] Medical 12/11/2020 12:00:00 AM EDT [facility] ([facility]) Feng Matthew MD: [address] [place] [address], Ph. Attender: Feng Matthew MD [facility] Medical 12/11/2020 12:00:00 AM EDT [facility] ([facility]) Feng Matthew MD: [address] [place] [address], Ph. Attender: Feng Matthew MD [facility] Medical 12/11/2020 12:00:00 AM EDT [facility] ([facility]) Feng Matthew MD: [address] [place] [address], Ph. Attender: Feng Matthew MD [facility] Medical 12/11/2020 12:00:00 AM EDT [facility] ([facility]) Feng Matthew MD: [address] [place] [address], Ph. Attender: Feng Matthew MD [facility] Medical 12/11/2020 12:00:00 AM EDT [facility] ([facility]) Feng Matthew MD: [address] [place] [address], Ph. Attender: Feng Matthew MD [facility] Medical 12/11/2020 12:00:00 AM EDT [facility] ([facility]) Feng Matthew MD: [address], [place] [address], Ph. Attender: Feng Matthew MD [facility] Medical 09/17/2020 12:00:00 AM EST [facility] ([facility]) Feng Matthew MD: [address], [place] [address], Ph. Attender: Feng Matthew MD [facility] Medical 09/17/2020 12:00:00 AM EST [facility] ([facility]) Feng Matthew MD: [address], [place] [address], Ph. Attender: Feng Matthew MD [facility] Medical 09/17/2020 12:00:00 AM EST [facility] ([facility]) Feng Matthew MD: [address], [place] [address], Ph. Attender: Feng Matthew MD [facility] Medical 09/17/2020 12:00:00 AM EST [facility] ([facility]) Feng Matthew MD: [address], [place] [address], Ph. Attender: Feng Matthew MD [facility] Medical 09/17/2020 12:00:00 AM EST [facility] ([facility]) Feng Matthew MD: [address], [place] [address], Ph. Attender: Feng Matthew MD [facility] Medical 09/17/2020 12:00:00 AM EST [facility] ([facility]) Feng aMtthew MD: [address] [facility], [facility] [address], [place] [address], Ph. Attender: Feng Matthew MD [place] - [facility] Medical 09/17/2020 12:00:00 AM EST [facility] ([facility]) Outpatient Attender: Selvin Segura MD Physical Therapy 05/19/2020 0 9:00:00 AM EDT [facility] ([facility]) Outpatient Attender: Feng Matthew [...] al Therapy 04/09/2020 10:45:00 AM EDT [facility] ([facility]) Immunizations Vaccine Date Status Description Data Source(s) COVID-19 vaccine, vector-nr, rS-Ad26, PF, 0.5 mL 12/30/2020 01:57:01 PM EDT completed .5 mL [facility]) COVID-19 vaccine, vector-nr, rS-Ad26, PF, 0.5 mL 12/30/2020 01:57:01 PM EDT completed .5 mL [facility]) COVID-19 vaccine, vector-nr, rS-Ad26, PF, 0.5 mL 12/30/2020 01:57:01 PM EDT completed .5 mL [facility]) COVID-19 vaccine, vector-nr, rS-Ad26, PF, 0.5 mL 12/30/2020 01:57:01 PM EDT completed .5 mL [facility]) COVID-19 VACCINE [place] 12/30/2020 12:00:00 AM EDT completed [facility] Vaccine Series Complete: YESThis Data wa s Submitted to [facility] Via Works[facility]. Medications Medication Brand Name Start Date Product Form Dose Route Admi nistrative Instructions Pharmacy Instructions Status Indications Reaction Description Data Source(s) ammonium lactate 120 MG/ML Topical Cream Ammonium Lactate 03/26/2021 12:00:00 AM EDT active [facility] ([facility] Paroxetine Hydrochloride 10 MG Oral Tablet [...] oxycodone hydrochloride 5 MG Oral Tablet [facility]EL ([facility]) Acetaminophen 325 MG / Oxycodone Hydroch loride 5 MG Oral Tablet oxycodone- acetaminophen 5 mg-325 mg tablet oxycodone-acetaminophen 5 mg-325 mg tablet completed acetaminop hen 325 MG / oxycodone hydrochloride 5 MG Oral Tablet [facility] ([facility]) Acetaminophen 325 MG / Oxycodone Hydroch loride 5 MG Oral Tablet oxycodone- acetaminophen 5 mg-325 mg tablet oxycodone-acetaminophen 5 mg-325 mg tablet completed acetaminop hen 325 MG / oxycodone hydrochloride 5 MG Oral Tablet [facility] ([facility]) Acetaminophen 325 MG / Oxycodone Hydroch loride 5 MG Oral Tablet oxycodone- acetaminophen 5 mg-325 mg tablet oxycodone-acetaminophen 5 mg-325 mg tablet completed acetaminop hen 325 MG / oxycodone hydrochloride 5 MG Oral Tablet [facility] ([facility]) Acetaminophen 325 MG / Oxycodone Hydroch loride 5 MG Oral Tablet oxycodone- acetaminophen 5 mg-325 mg tablet oxycodone-acetaminophen 5 mg-325 mg tablet completed acetaminop hen 325 MG / oxycodone hydrochloride 5 MG Oral Tablet [facility] ([facility]) Insurance Providers Payer name Policy type / Coverage type Policy ID Covered green party ID Covered green party's relationship to lloyd Policy Lloyd Plan Information MEDICARE A [id number] Self [id number] A MEDICARE [id number] SP [id number] A MEDICAID M [id number] Self [id number] MEDICARE A [id number] Self [id number] A Medicare Wrap S [id number] S [id number] United[employer] Secure [employer]iz[employer] P [id number] S [id number] Unitedhealthcare [employer]iz[employer] P [id number] S [id number] Unitedhealthcare [employer]iz[employer] P [id number] S [id number] Unitedhealth[employer]iz[employer] P [id number] S [id number] Medicare Wrap S [id number] S [id number] [employer] P [id number] S [id number] United[employer] P [id number] S [id number] Medicare Wrap S [id number] S [id number] MEDICARE COMPLETE [id number] SP [id number] [facility] [id number] SP [id number] MEDICARE COMPLETE-UHC O [id number] S [id number] [facility] [id number] SP [id number] MEDICARE C [id number] S [id number] A MEDICARE COMPLETE [id number] SP [id number] A MEDICARE COMPLETE-UHC O [id number] S [id number] [place] [id number] SP [id number] MEDICAID M [id number] S [id number] MEDICARE [id number] SP [id number] MEDICAID [id number] SP [id number] MEDICARE [id number] SP [id number] A Medicaid Medigap Part B [id number] Self [id number] [facility] [employer] [id number] Self [id number] Medicaid Medigap Part B [id number] Self [id number] [facility] [id number] Self [id number] MEDICARE [id number] SP [id number] A MEDICARE COMPLETE [id number] Problems, Conditions, and Diagnoses Code Display Name Description Problem Type Effective Dates Data Source(s) 187407800 Deep venous thrombosis Deep Venous Thrombosis Problem 02/10/2021 12:00:00 AM EDT [facility] ([facility]) [id number] Deep venous thrombosis Deep Venous Thrombosis Problem 02/10/2021 12:00:00 AM EDT [facility] ([facility]) 25562398 Dyspnea on exertion Dyspnea on Exertion Problem 0 12/18/2020 12:00:00 AM EDT [facility] ([facility]) 471194639 Edema of lower extremity Edema of Lower Extremity Prob [place] 12/18/2020 12:00:00 AM EDT [facility] ([facility]) [id number] Tobacco user Tobacco User Problem 12/18/2020 12:00:00 A M EDT [facility] ([facility]) 77517280 Dyspnea on exertion Dyspnea on Exertion Problem 0 12/18/2020 12:00:00 AM EDT [facility] ([facility]) [id number] Edema of lower extremity Edema of Lower Extremity Prob [place] 12/18/2020 12:00:00 AM EDT [facility] ([facility]) [id number] Tobacco user Tobacco User Problem 12/18/2020 12:00:00 A M EDT [facility]EL ([facility]) 93906017 Dyspnea on exertion Dyspnea on Exertion Problem 0 12/18/2020 12:00:00 AM EDT [facility] ([facility]) 162123762 Edema of lower extremity Edema of Lower Extremity Prob [place] 12/18/2020 12:00:00 AM EDT [facility] ([facility]) 348455939 Tobacco user Tobacco User Problem 12/18/2020 12:00:00 A M EDT [facility] ([facility]) 88395558 Dyspnea on exertion Dyspnea on Exertion Problem 0 12/18/2020 12:00:00 AM EDT [facility] ([facility]) 462249371 Edema of lower extremity Edema of Lower Extremity Prob [place] 12/18/2020 12:00:00 AM EDT [facility] ([facility]) 807556340 Tobacco user Tobacco User Problem 12/18/2020 12:00:00 A M EDT [facility] ([facility]) 46125012 Dyspnea on exertion Dyspnea on Exertion Problem 0 12/18/2020 12:00:00 AM EDT [facility] ([facility]) 351489158 Edema of lower extremity Edema of Lower Extremity Prob [place] 12/18/2020 12:00:00 AM EDT CHAEN[facility] ([facility]) [id number] Tobacco user Tobacco User Problem 12/18/2020 12:00:00 A M EDT [place] ([facility]) S52.302A Unspecified fracture of shaf t of left radius, initial encounter for closed fracture Unspecified fracture of shaft of left ra dius, initial encounter for closed fracture 05/08/2020 10:35:25 AM EDT [facility] 083393230 Fracture of shaft of radius Fracture of Shaft of Radiu s Problem 05/08/2020 12:00:00 AM EDT [facility]EL ([facility]) 465879203 Fracture of shaft of radius Fracture of Shaft of Radiu s Problem 05/08/2020 12:00:00 AM EDT [facility] ([facility]) 850228011 Fracture of shaft of radius Fracture of Shaft of Radiu s Problem 05/08/2020 12:00:00 AM EDT [facility] ([facility]) 287859415 Fracture of shaft of radius Fracture of Shaft of Radiu s Problem 05/08/2020 12:00:00 AM EDT [facility] ([facility]) 494331310 Fracture of shaft of radius Fracture of Shaft of Radiu s Problem 05/08/2020 12:00:00 AM EDT [facility] ([facility]) 086723756 Fracture of shaft of radius Fracture of Shaft of Radiu s Problem 05/08/2020 12:00:00 AM EDT [facility] ([facility]) 272622610 Fracture of shaft of radius Fracture of Shaft of Radiu s Problem 05/08/2020 12:00:00 AM EDT [place] ([facility]) Surgeries/Procedures Procedure Description Date Indications Data Source(s) DEBRIDEMENT NAIL ANY METHOD 6/> 03/26/2021 12:00:00 AM EDT [facility] ([facility] OFFICE OUTPATIENT NEW 30 MINUTES 03/26/2021 12:00:00 A M EDT [facility] ([facility] CLTX DSTL RADIAL FX/EPIPHYSL SEP W/O MANJ 05/19/2020 1 2:00:00 AM EDT [facility] ([facility] ) RADEX WRIST 2 VIEWS 05/19/2020 12:00:00 AM EDT [facility] ([facility] ) Apply Cast Long Arm 04/09/2020 12:00:00 AM EDT [facility] ([facility] ) CLTX DSTL RADIAL FX/EPIPHYSL SEP W/O MANJ 04/09/2020 1 2:00:00 AM EDT [facility] ([facility] ) Results ID Date Data Source [id number] 01/15/2021 12:26:00 PM EDT [place] ([facility]) Name Value Range Interpretation Code Description Data Cata rce(s) Supporting Document(s) istat HCT 49.0 % 38.0-51.0 Istat HCT [place] ([facility]) istat glucose 111 mg/dL 70-105 Above high normal [facility] istat sodium 139 mEq/L 136-145 Istat Sodium [facility] ([facility]) istat potassium 4.6 mEq/L 3.5-5.1 Istat Potassium ATHE NA ([facility]) istat Ca++ 4.8 mg/dL 4.5-5.3 Istat Ca++ [facility] ([facility]) istat chloride 99 mEq/L 98-109 Istat Chloride [facility] ([facility]) istat CO2 23.0 mm/L 23.0-27.0 Istat CO2 [facility] ([facility]) istat BUN 3 mg/dL 8-26 Below low normal Istat BUN [place] ( [facility]) istat creatinine 0.7 mg/dL 0.6-1.3 Istat Creatinine AT [facility] ([facility]) ID Date Data Source [id number] 01/15/2021 12:26:00 PM EDT [place] ([facility]) Name Value Range Interpretation Code Description Data Cata rce(s) Supporting Document(s) istat HCT 49.0 % 38.0-51.0 Istat HCT [facility] ([facility]) istat glucose 111 mg/dL 70-105 Above high normal [facility] istat sodium 139 mEq/L 136-145 Istat Sodium [facility] ([facility]) istat potassium 4.6 mEq/L 3.5-5.1 Istat Potassium ATHE NA ([facility]) istat Ca++ 4.8 mg/dL 4.5-5.3 Istat Ca++ [facility] ([facility]) istat chloride 99 mEq/L 98-109 Istat Chloride [facility] ([facility]) istat CO2 23.0 mm/L 23.0-27.0 Istat CO2 [facility] ([facility]) istat creatinine 0.7 mg/dL 0.6-1.3 Istat Creatinine AT [facility] ([facility]) istat BUN 3 mg/dL 8-26 Below low normal Istat BUN [facility] ( [facility]) ID Date Data Source [id number] 01/15/2021 12:25:00 PM EDT [facility] ([facility]) Name Value Range Interpretation Code Description Data Cata rce(s) Supporting Document(s) erythrocyte sedimentation rate 4 mm/HR 0-20 Eryth rocyte Sedimentation Rate [facility] ([facility]) ID Date Data Source [id number] 01/15/2021 12:25:00 PM EDT [place] ([facility]) Name Value Range Interpretation Code Description Data Cata rce(s) Supporting Document(s) white blood count 7.3 10 4.0-10.0 White Blood Count [facility] ([facility]) hemoglobin 15.8 g/dL 13.5-17.5 Hemoglobin [facility] ([facility]) red blood count 4.95 10 4.30-6.10 Red Blood Count AT[facility] ([facility]) hematocrit 46.0 % 42.0-52.0 Hematocrit [place] ([facility]) mean corpuscular volume 92.9 fL 80.0-96.0 Mean Corpusc ular Volume [facility] ([facility]) mean corpuscular HGB conc 34.3 g/dL 32.0-36.5 Mean Corpu scular HGB Conc [facility] ([facility]) mean corpuscular hemoglobin 31.9 pg 27.0-33.0 Mean Cor puscular Hemoglobin [facility] ([facility]) red cell distribution width 14.0 % 11.5-14.5 Red Cell Distribution Width [facility] ([facility]) neutrophils % 67.3 % 36.0-66.0 Above high normal Neutrophils % A THENA ([facility]) platelet count, automated 226 10 150-450 Platelet C ount, Automated [facility] ([facility]) lymph % 19.2 % 24.0-44.0 Below low normal Lymph % [facility] ( [facility]) mono % 9.8 % 2.0-8.0 Above high normal Carbon % [facility] ([facility]) eos % 2.8 % 0.0-3.0 Eos % [facility] ([facility]) baso % 0.6 % 0.0-1.0 Baso % [facility] ([facility]) nucleated red blood cell % 0.0 % 0-0 Nucleated Red Blood Cell % [facility] ([facility]) immature granulocyte % 0.3 % 0-3.0 Immature Gran ulocyte % [facility] ([facility]) neutrophils # 4.9 10 1.5-8.5 Neutrophils # [facility] ( [facility]) lymph # 1.4 10 1.5-5.0 Below low normal Lymph # [facility] ( [facility]) mono # 0.7 10 0.0-0.8 Carbon # [facility] ([facility]) eos # 0.2 10 0.0-0.5 Eos # [facility] ([facility]) baso # 0.0 10 0.0-0.2 Baso # [facility] ([facility]) ID Date Data Source [id number] 01/15/2021 12:25:00 PM EDT [facility] ([facility]) Name Value Range Interpretation Code Description Data Cata rce(s) Supporting Document(s) C reactive protein quantitativ < 0.30 0.00-0.30 C Reactive Protein Quantitativ [place] ([facility]) ID Date Data Source [id number] 01/15/2021 12:25:00 PM EDT [place] ([facility]) Name Value Range Interpretation Code Description Data Cata rce(s) Supporting Document(s) prothrombin time 16.7 seconds 12.5-14.3 Above high normal Prothrombi n Time [facility] ([facility]) INR Inr [place] ([facility]) partial thromboplastin time 30.3 seconds 24.2-38.5 Partial Thromboplastin Time [facility] ([facility]) ID Date Data Source [id number] 01/15/2021 12:25:00 PM EDT [facility] ([facility]) Name Value Range Interpretation Code Description Data Cata rce(s) Supporting Document(s) erythrocyte sedimentation rate 4 mm/HR 0-20 Eryth rocyte Sedimentation Rate [facility] ([facility]) ID Date Data Source [id number] 01/15/2021 12:25:00 PM EDT [facility] ([facility]) Name Value Range Interpretation Code Description Data Cata rce(s) Supporting Document(s) white blood count 7.3 10 4.0-10.0 White Blood Count [facility] ([facility]) hemoglobin 15.8 g/dL 13.5-17.5 Hemoglobin [facility] ([facility]) red blood count 4.95 10 4.30-6.10 Red Blood Count AT[facility] ([facility]) mean corpuscular volume 92.9 fL 80.0-96.0 Mean Corpusc ular Volume [facility] ([facility]) hematocrit 46.0 % 42.0-52.0 Hematocrit [facility] ([facility]) red cell distribution width 14.0 % 11.5-14.5 Red Cell Distribution Width [facility] ([facility]) mean corpuscular HGB conc 34.3 g/dL 32.0-36.5 Mean Corpu scular HGB Conc [facility] ([facility]) mean corpuscular hemoglobin 31.9 pg 27.0-33.0 Mean Cor puscular Hemoglobin [facility] ([facility]) platelet count, automated 226 10 150-450 Platelet C ount, Automated [facility] ([facility]) lymph % 19.2 % 24.0-44.0 Below low normal Lymph % [facility] ( [facility]) neutrophils % 67.3 % 36.0-66.0 Above high normal Neutrophils % A [facility] ([facility]) mono % 9.8 % 2.0-8.0 Above high normal Carbon % [facility] ([facility]) eos % 2.8 % 0.0-3.0 Eos % [facility] ([facility]) baso % 0.6 % 0.0-1.0 Baso % [facility] ([facility]) nucleated red blood cell % 0.0 % 0-0 Nucleated Red Blood Cell % [facility] ([facility]) immature granulocyte % 0.3 % 0-3.0 Immature Gran ulocyte % [facility] ([facility]) lymph # 1.4 10 1.5-5.0 Below low normal Lymph # [facility] ( [facility]) neutrophils # 4.9 10 1.5-8.5 Neutrophils # [facility] ( [facility]) baso # 0.0 10 0.0-0.2 Baso # [facility] ([facility]) mono # 0.7 10 0.0-0.8 Carbon # [facility] ([facility]) eos # 0.2 10 0.0-0.5 Eos # [facility] ([facility]) ID Date Data Source [id number] 01/15/2021 12:25:00 PM EDT [place] ([facility]) Name Value Range Interpretation Code Description Data Cata rce(s) Supporting Document(s) C reactive protein quantitativ < 0.30 0.00-0.30 C Reactive Protein Quantitativ [place] ([facility]) ID Date Data Source [id number] 01/15/2021 12:25:00 PM EDT [facility] ([facility]) Name Value Range Interpretation Code Description Data Cata rce(s) Supporting Document(s) prothrombin time 16.7 seconds 12.5-14.3 Above high normal Prothrombi n Time [facility] ([facility]) INR Inr [place] ([facility]) partial thromboplastin time 30.3 seconds 24.2-38.5 Partial Thromboplastin Time [place] ([facility]) ID Date Data Source [id number] 01/09/2021 07:14:00 PM EDT [facility]) Name Value Range Interpretation Code Description Data Cata rce(s) Supporting Document(s) levetiracetam (keppra) 10.6 ug/mL 10.0-40.0 Levetiracetam (Keppra) [facility]) ID Date Data Source [id number] 01/09/2021 07:14:00 PM EDT [facility]) Name Value Range Interpretation Code Description Data Cata rce(s) Supporting Document(s) levetiracetam (keppra) 10.6 ug/mL 10.0-40.0 Levetiracetam (Keppra) [facility]) ID Date Data Source [id number] 01/09/2021 02:17:00 PM EDT [facility]) Name Value Range Interpretation Code Description Data Cata rce(s) Supporting Document(s) creatinine for GFR 0.71 mg/dL 0.70-1.30 Creatinine for GF R [facility]) blood urea nitrogen 5 mg/dL 7-18 Below low normal Blood Urea Nitrogen [place] ([facility]) glucose, fasting 93 mg/dL 70-100 Glucose, Fasting AT [facility]) glomerular filtration rate > 60.0 >49 Glomerula r Filtration Rate CHANEL ([facility]) potassium serum 4.4 mEq/L 3.5-5.1 Potassium Serum ATH NA ([facility]) sodium level 135 mEq/L 136-145 Below low normal [facility] chloride level 103 mEq/L 98-107 Chloride Level [place] ([facility]) carbon dioxide level 26 mEq/L 21-32 Carbon Dioxide Level [facility]) anion gap 6 mEq/L 8-16 Below low normal Anion Gap CHANEL ( [facility]) calcium level 9.3 mg/dL 8.8-10.2 Calcium Level [facility]) ID Date Data Source [id number] 01/09/2021 02:17:00 PM EDT CHANEL ([facility]) Name Value Range Interpretation Code Description Data Cata rce(s) Supporting Document(s) prothrombin time 13.1 seconds 12.5-14.3 Prothrombin Time [facility]ANEL ([facility]) INR Inr [facility] ([facility]) partial thromboplastin time 26.8 seconds 24.2-38.5 Partial Thromboplastin Time CHANEL ([facility]) ID Date Data Source [id number] 01/09/2021 02:17:00 PM EDT CHANEL ([facility]) Name Value Range Interpretation Code Description Data Cata rce(s) Supporting Document(s) white blood count 8.4 10 4.0-10.0 White Blood Count CHANEL ([facility]) red blood count 5.31 10 4.30-6.10 Red Blood Count ATHE ([facility]) hemoglobin 17.1 g/dL 13.5-17.5 Hemoglobin CHANEL ([facility]) hematocrit 49.3 % 42.0-52.0 Hematocrit CHANEL ([facility]) mean corpuscular volume 92.8 fL 80.0-96.0 Mean Corpusc ular Volume CHANEL ([facility]) mean corpuscular hemoglobin 32.2 pg 27.0-33.0 Mean Cor puscular Hemoglobin CHANEL ([facility]) red cell distribution width 13.8 % 11.5-14.5 Red Cell Distribution Width CHANEL ([facility]) mean corpuscular HGB conc 34.7 g/dL 32.0-36.5 Mean Corpu scular HGB Conc CHANEL ([facility]) platelet count, automated 266 10 150-450 Platelet C ount, Automated CHANEL ([facility]) nucleated red blood cell % 0.0 % 0-0 Nucleated Red Blood Cell % CHANEL ([facility]) ID Date Data Source [id number] 01/09/2021 02:17:00 PM EDT CHANEL ([facility]) Name Value Range Interpretation Code Description Data Cata rce(s) Supporting Document(s) glucose, fasting 93 mg/dL 70-100 Glucose, Fasting AT [facility]) blood urea nitrogen 5 mg/dL 7-18 Below low normal Blood Urea Nitrogen CHANEL ([facility]) creatinine for GFR 0.71 mg/dL 0.70-1.30 Creatinine for GF R [place] ([facility]) glomerular filtration rate > 60.0 >49 Glomerula r Filtration Rate CHANEL ([facility]) potassium serum 4.4 mEq/L 3.5-5.1 Potassium Serum ATH NA ([facility]) sodium level 135 mEq/L 136-145 Below low normal Sodium Level ATHE NA ([facility]) carbon dioxide level 26 mEq/L 21-32 Carbon Dioxide Level [place] ([facility]) chloride level 103 mEq/L 98-107 Chloride Level [place] ([facility]) anion gap 6 mEq/L 8-16 Below low normal Anion Gap CHANEL ( [facility]) calcium level 9.3 mg/dL 8.8-10.2 Calcium Level [place] ( [facility]) ID Date Data Source [id number] 01/09/2021 02:17:00 PM EDT CHANEL ([facility]) Name Value Range Interpretation Code Description Data Cata rce(s) Supporting Document(s) prothrombin time 13.1 seconds 12.5-14.3 Prothrombin Time [place] ([facility]) INR Inr [place] ([facility]) partial thromboplastin time 26.8 seconds 24.2-38.5 Partial Thromboplastin Time [facility]ANEL ([facility]) ID Date Data Source [id number] 01/09/2021 02:17:00 PM EDT [facility]ANEL ([facility]) Name Value Range Interpretation Code Description Data Cata rce(s) Supporting Document(s) white blood count 8.4 10 4.0-10.0 White Blood Count [facility]EL ([facility]) red blood count 5.31 10 4.30-6.10 Red Blood Count ATHE ([facility]) hemoglobin 17.1 g/dL 13.5-17.5 Hemoglobin [place]EL ([facility]) hematocrit 49.3 % 42.0-52.0 Hematocrit [facility]EL ([facility]) mean corpuscular volume 92.8 fL 80.0-96.0 Mean Corpusc ular Volume [facility]ANEL ([facility]) red cell distribution width 13.8 % 11.5-14.5 Red Cell Distribution Width [facility]EL ([facility]) mean corpuscular HGB conc 34.7 g/dL 32.0-36.5 Mean Corpu scular HGB Conc [place] ([facility]) mean corpuscular hemoglobin 32.2 pg 27.0-33.0 Mean Cor puscular Hemoglobin [place] ([facility]) platelet count, automated 266 10 150-450 Platelet C ount, Automated [place] ([facility]) nucleated red blood cell % 0.0 % 0-0 Nucleated Red Blood Cell % [place] ([facility]) ID Date Data Source [id number] 01/09/2021 02:17:00 PM EDT [place] ([facility]) Name Value Range Interpretation Code Description Data Cata rce(s) Supporting Document(s) glucose, fasting 93 mg/dL 70-100 Glucose, Fasting AT [facility] ([facility]) glomerular filtration rate > 60.0 >49 Glomerula r Filtration Rate [place] ([facility]) creatinine for GFR 0.71 mg/dL 0.70-1.30 Creatinine for GF R [place] ([facility]) blood urea nitrogen 5 mg/dL 7-18 Below low normal Blood Urea Nitrogen [place]EL ([facility]) sodium level 135 mEq/L 136-145 Below low normal Sodium Level [place] ([facility]) potassium serum 4.4 mEq/L 3.5-5.1 Potassium Serum [facility]) chloride level 103 mEq/L 98-107 Chloride Level [place] ([facility]) carbon dioxide level 26 mEq/L 21-32 Carbon Dioxide Level [place] ([facility]) calcium level 9.3 mg/dL 8.8-10.2 Calcium Level [place] ( [facility]) anion gap 6 mEq/L 8-16 Below low normal Anion Gap [place] ( [facility]) ID Date Data Source [id number] 01/09/2021 02:17:00 PM EDT [place]EL ([facility]) Name Value Range Interpretation Code Description Data Cata rce(s) Supporting Document(s) prothrombin time 13.1 seconds 12.5-14.3 Prothrombin Time [facility] ([facility]) INR Inr [place] ([facility]) partial thromboplastin time 26.8 seconds 24.2-38.5 Partial Thromboplastin Time [place] ([facility]) ID Date Data Source [id number] 01/09/2021 02:17:00 PM EDT [facility]ANEL ([facility]) Name Value Range Interpretation Code Description Data Cata rce(s) Supporting Document(s) white blood count 8.4 10 4.0-10.0 White Blood Count [place] ([facility]) red blood count 5.31 10 4.30-6.10 Red Blood Count ATHE ([facility]) hematocrit 49.3 % 42.0-52.0 Hematocrit [place]EL ([facility]) hemoglobin 17.1 g/dL 13.5-17.5 Hemoglobin [place] ([facility]) mean corpuscular hemoglobin 32.2 pg 27.0-33.0 Mean Cor puscular Hemoglobin [facility]EL ([facility]) mean corpuscular volume 92.8 fL 80.0-96.0 Mean Corpusc ular Volume [facility]EL ([facility]) mean corpuscular HGB conc 34.7 g/dL 32.0-36.5 Mean Corpu scular HGB Conc [facility]EL ([facility]) red cell distribution width 13.8 % 11.5-14.5 Red Cell Distribution Width [facility]EL ([facility]) platelet count, automated 266 10 150-450 Platelet C ount, Automated [place] ([facility]) nucleated red blood cell % 0.0 % 0-0 Nucleated Red Blood Cell % [place] ([facility]) ID Date Data Source [id number] 12/11/2020 12:00:00 AM EDT [place]EL ([facility]) Name Value Range Interpretation Code Description Data Cata rce(s) Supporting Document(s) Leukocytes [#/volume] in Blood by Automated count 7.6 thousand/uL 3 .8-10.8 White Blood Cell Count [facility]EL ([facility]) Hematocrit [Volume Fraction] of Blood by Automated count 42.4 % 38.5-50.0 Hematocrit [place] ([facility]) Hemoglobin [Mass/volume] in Blood 14.6 g/dL 13.2-17.1 He moglobin [facility]ANEL ([facility]) Erythrocytes [#/volume] in Blood by Automated count 4.43 million/uL 4.20-5.80 Red Blood Cell Count [facility] ([facility]) Erythrocyte mean corpuscular hemoglobin [Entitic mass] by Automated count 33.0 pg 27.0-33.0 Mch [facility] ([facility]) Platelets [#/volume] in Blood by Automated count 260 thousand/uL 14 0-400 Platelet Count [place] ([facility]) Erythrocyte mean corpuscular volume [Entitic volume] by Auto mated count 95.7 fL 80.0-100.0 Mcv [facility] ([facility]) Erythrocyte mean corpuscular hemoglobin concentration [Mass/volume] by Automated count 34.4 g/dL 32.0-36.0 Mchc [facility] ([facility]) Erythrocyte distribution width [Ratio] by Automated count 14.5 % 11.0-15.0 Rdw [facility] ([facility]) Neutrophils [#/volume] in Blood by Automated count 4134 cells/uL 15 00-7800 Absolute Neutrophils [place] ([facility]) Monocytes [#/volume] in Blood by Automated count 889 cells/uL 200-9 50 Absolute Monocytes [facility] ([facility]) Eosinophils [#/volume] in Blood by Automated count 312 cells/uL 15- 500 Absolute Eosinophils [place] ([facility]) Platelet mean volume [Entitic volume] in Blood by Shreyas 10.2 f L 7.5-12.5 Mpv [place]EL ([facility]) Lymphocytes [#/volume] in Blood by Automated count 2196 cells/uL 85 0-3900 Absolute Lymphocytes [facility] ([facility]) Neutrophils/100 leukocytes in Blood by Automated count 54.4 % 38-80 Neutrophils [place] ([facility]) Basophils [#/volume] in Blood by Automated count 68 cells/uL 0-200 Absolute Basophils [place] ([facility]) Monocytes/100 leukocytes in Blood by Automated count 11.7 % 0-13 Monocytes [place] ([facility]) Lymphocytes/100 leukocytes in Blood by Automated count 28.9 % 15-49 Lymphocytes [facility] ([facility]) Eosinophils/100 leukocytes in Blood by Automated count 4.1 % 0-8 Eosinophils [place] ([facility]) Basophils/100 leukocytes in Blood by Automated count 0.9 % 0-2 Basophils [facility] ([facility]) ID Date Data Source [id number] 12/11/2020 12:00:00 AM EDT [facility]) Name Value Range Interpretation Code Description Data Cata rce(s) Supporting Document(s) Levetiracetam [Mass/volume] in Serum or Plasma 1.6 mcg/mL 1 2.0-46.0 Below low normal Levetiracetam CHANEL ([facility]) ID Date Data Source [id number] 12/11/2020 12:00:00 AM EDT [facility]) Name Value Range Interpretation Code Description Data Cata rce(s) Supporting Document(s) Urea nitrogen [Mass/volume] in Serum or Plasma 4 mg/dL 7-25 Below low normal Urea Nitrogen (BUN) [facility]ANEL ([facility]) Glucose [Mass/volume] in Serum or Plasma 100 mg/dL 65-99 Above high normal Glucose [facility] ([facility]) Creatinine [Mass/volume] in Serum or Plasma 0.78 mg/dL 0.70-1.25 Creatinine [facility] ([facility]) Glomerular filtration rate/1.73 sq M.pre dicted among blacks [Volume Rate/Area] in Serum, Plasma or Blood by Creatinine-based formula (CKD-EPI) 107 mL/min/1.73m2 > or = 60 eGFR CHANEL ([facility]) Glomerular filtration rate/1.73 sq M.pre dicted among non-blacks [Volume Rate/Area] in Serum, Plasma or Blood by Creatinine-based formula (CKD-EPI) 93 mL/min/1.73m2 > or = 60 eGFR Non-afr. Polish CHANEL ([facility]) Urea nitrogen/Creatinine [Mass Ratio] in Serum or Plasma 5 (calc ) 6-22 Below low normal BUN/creatinine Ratio [facility] ([facility]) Sodium [Moles/volume] in Serum or Plasma 147 mmol/L 135-146 Above high normal Sodium [facility] ([facility]) Carbon dioxide, total [Moles/volume] in Serum or Plasma 20 mmol/L 20-32 Carbon Dioxide CH[facility] ([facility]) Chloride [Moles/volume] in Serum or Plasma 116 mmol/L 98-110 Above high normal Chloride CH[facility] ([facility]) Potassium [Moles/volume] in Serum or Plasma 4.4 mmol/L 3.5-5.3 Potassium [facility] ([facility]) Calcium [Mass/volume] in Serum or Plasma 8.2 mg/dL 8.6-10.3 Below low normal Calcium [facility] ([facility]) Protein [Mass/volume] in Serum or Plasma 6.5 g/dL 6.1-8.1 [facility], [facility] Globulin [Mass/volume] in Serum by calculation 3.0 g/dL_(calc) 1.9- 3.7 Globulin [place] ([facility]) Albumin [Mass/volume] in Serum or Plasma 3.5 g/dL 3.6-5.1 Below low normal Albumin CH[facility]EL ([facility]) Albumin/Globulin [Mass Ratio] in Serum or Plasma 1.2 (calc) 1.0-2 .5 Albumin/globulin Ratio CH[facility]EL ([facility]) Bilirubin.total [Mass/volume] in Serum or Plasma 0.2 mg/dL 0.2-1 .2 Bilirubin, Total [facility]EL ([facility]) Alkaline phosphatase [Enzymatic activity/volume] in Serum or Plasma 121 U/L 35-144 Alkaline Phosphatase [facility] ([facility]) Alanine aminotransferase [Enzymatic activity/volume] in Seru m or Plasma 23 U/L 9-46 Alt CH[facility]EL ([facility]) Aspartate aminotransferase [Enzymatic activity/volume] in Serum or Plasma 30 U/L 10-35 Ast CHANEL ([facility]) ID Date Data Source [id number] 12/11/2020 12:00:00 AM EDT [place] ([facility]) Name Value Range Interpretation Code Description Data Cata rce(s) Supporting Document(s) Cholesterol [Mass/volume] in Serum or Plasma 155 mg/dL <200 Cholesterol, Total [facility]EL ([facility]) Cholesterol in HDL [Mass/volume] in Serum or Plasma 36 mg/dL > or = 40 Below low normal HDL Cholesterol [facility] ([facility]) Triglyceride [Mass/volume] in Serum or Plasma 154 mg/dL <150 Above high normal Triglycerides [facility] ([facility]) Cholesterol in LDL [Mass/volume] in Serum or Plasma by calculation 93 mg/dL_(calc) <100 LDL-cholesterol [facility] ([facility]) Cholesterol non HDL [Mass/volume] in Serum or Plasma 119 mg/dL_(niraj c) <130 Non HDL Cholesterol CH[facility]EL ([facility]) Lipoprotein.beta.subparticle [Moles/volume] in Serum or Plas ma 1257 nmol/L <1138 Above high normal LDL Particle Number [facility] ([facility]) Cholesterol.total/Cholesterol in HDL [Mass Ratio] in Serum o r Plasma 4.3 calc <5.0 Chol/hdlc Ratio [place] ([facility]) Lipoprotein.beta.subparticle.small [Moles/volume] in Serum o r Plasma 361 nmol/L <142 Above high normal LDL Small CHANEL ([facility]) Lipoprotein.alpha.subparticle.large [Moles/volume] in Serum or Plasma 3456 nmol/L >6729 Below low normal HDL Large CH[facility]EL ([facility]) Cholesterol in LDL real size pattern [Identifier] in Serum or Pl asma B A Abnormal (applies to non-numeric results) LDL Pattern [facility]ANEL ([facility]) Lipoprotein.alpha 3 [Moles/volume] in Serum 247 nmol/L <215 Above high normal LDL Medium [facility] ([facility]) Lipoprotein a [Moles/volume] in Serum or Plasma <10 <75 Lipoprotein (a) [facility] ([facility]) Apolipoprotein B [Mass/volume] in Serum or Plasma 93 mg/dL Above high normal Apolipoprotein B [facility] ([facility]) Lipoprotein.beta.subparticle [Entitic length] in Serum or Pl asma 208.6 angstrom >222.9 Below low normal LDL Peak Size [facility] ([facility]) ID Date Data Source [id number] 12/11/2020 12:00:00 AM EDT [facility]) Name Value Range Interpretation Code Description Data Cata rce(s) Supporting Document(s) Triiodothyronine resin uptake (T3RU) in Serum or Plasma 33 % 22 -35 T3 Uptake [place] ([facility]) Thyroxine (T4) free index in Serum or Plasma by calculation 1.4-3.8 Free T4 Index (T7) [facility] ([facility]) Thyroxine (T4) [Mass/volume] in Serum or Plasma 4.7 mcg/dL 4.9-10.5 Below low normal T4 (Thyroxine), Total [facility] ([facility]) Thyrotropin [Units/volume] in Serum or Plasma 1.60 mIU/L 0.40-4.50 Tsh [facility]) ID Date Data Source [id number] 12/11/2020 12:00:00 AM EDT [facility]) Name Value Range Interpretation Code Description Data Cata rce(s) Supporting Document(s) Hematocrit [Volume Fraction] of Blood by Automated count 42.4 % 38.5-50.0 Hematocrit [facility] ([facility]) Erythrocytes [#/volume] in Blood by Automated count 4.43 million/uL 4.20-5.80 Red Blood Cell Count [facility] ([facility]) Hemoglobin [Mass/volume] in Blood 14.6 g/dL 13.2-17.1 He moglobin [facility] ([facility]) Leukocytes [#/volume] in Blood by Automated count 7.6 thousand/uL 3 .8-10.8 White Blood Cell Count [facility] ([facility]) Erythrocyte mean corpuscular hemoglobin [Entitic mass] by Automated count 33.0 pg 27.0-33.0 Mch [facility] ([facility]) Erythrocyte mean corpuscular volume [Entitic volume] by Auto mated count 95.7 fL 80.0-100.0 Mcv [facility] ([facility]) Erythrocyte distribution width [Ratio] by Automated count 14.5 % 11.0-15.0 Rdw [facility] ([facility]) Erythrocyte mean corpuscular hemoglobin concentration [Mass/volume] by Automated count 34.4 g/dL 32.0-36.0 Mchc [facility] ([facility]) Monocytes [#/volume] in Blood by Automated count 889 cells/uL 200-9 50 Absolute Monocytes [facility] ([facility]) Lymphocytes [#/volume] in Blood by Automated count 2196 cells/uL 85 0-3900 Absolute Lymphocytes [facility] ([facility]) Platelets [#/volume] in Blood by Automated count 260 thousand/uL 14 0-400 Platelet Count [facility] ([facility]) Neutrophils [#/volume] in Blood by Automated count 4134 cells/uL 15 00-7800 Absolute Neutrophils [facility] ([facility]) Platelet mean volume [Entitic volume] in Blood by Shreyas 10.2 f L 7.5-12.5 Mpv [facility] ([facility]) Eosinophils [#/volume] in Blood by Automated count 312 cells/uL 15- 500 Absolute Eosinophils [facility] ([facility]) Basophils [#/volume] in Blood by Automated count 68 cells/uL 0-200 Absolute Basophils [facility] ([facility]) Neutrophils/100 leukocytes in Blood by Automated count 54.4 % 38-80 Neutrophils [facility]) Lymphocytes/100 leukocytes in Blood by Automated count 28.9 % 15-49 Lymphocytes [facility]) Eosinophils/100 leukocytes in Blood by Automated count 4.1 % 0-8 Eosinophils [facility] ([facility]) Basophils/100 leukocytes in Blood by Automated count 0.9 % 0-2 Basophils [facility] ([facility]) Monocytes/100 leukocytes in Blood by Automated count 11.7 % 0-13 Monocytes [facility]) ID Date Data Source [id number] 12/11/2020 12:00:00 AM EDT [facility]) Name Value Range Interpretation Code Description Data Cata rce(s) Supporting Document(s) Levetiracetam [Mass/volume] in Serum or Plasma 1.6 mcg/mL 1 2.0-46.0 Below low normal Levetiracetam [facility]) ID Date Data Source [id number] 12/11/2020 12:00:00 AM EDT [facility]) Name Value Range Interpretation Code Description Data Cata rce(s) Supporting Document(s) Glucose [Mass/volume] in Serum or Plasma 100 mg/dL 65-99 Above high normal [facility] Creatinine [Mass/volume] in Serum or Plasma 0.78 mg/dL 0.70-1.25 Creatinine [facility]) Urea nitrogen [Mass/volume] in Serum or Plasma 4 mg/dL 7-25 Below low normal U[facility] Nitrogen (BUN) [facility] Glomerular filtration rate/1.73 sq M.pre dicted among non-blacks [Volume Rate/Area] in Serum, Plasma or Blood by Creatinine-based formula (CKD-EPI) 93 mL/min/1.73m2 > or = 60 eGFR Non-afr. Polish CHANEL ([facility]) Urea nitrogen/Creatinine [Mass Ratio] in Serum or Plasma 5 (calc ) 6-22 Below low normal BUN/creatinine Ratio CHANEL ([facility]) Glomerular filtration rate/1.73 sq M.pre dicted among blacks [Volume Rate/Area] in Serum, Plasma or Blood by Creatinine-based formula (CKD-EPI) 107 mL/min/1.73m2 > or = 60 eGFR CH[facility] ([facility]) Sodium [Moles/volume] in Serum or Plasma 147 mmol/L 135-146 Above high normal Sodium [facility] ([facility]) Potassium [Moles/volume] in Serum or Plasma 4.4 mmol/L 3.5-5.3 Potassium [facility] ([facility]) Chloride [Moles/volume] in Serum or Plasma 116 mmol/L 98-110 Above high normal Chloride CH[facility] ([facility]) Carbon dioxide, total [Moles/volume] in Serum or Plasma 20 mmol/L 20-32 Carbon Dioxide CH[facility] ([facility]) Globulin [Mass/volume] in Serum by calculation 3.0 g/dL_(calc) 1.9- 3.7 Globulin [facility] ([facility]) Albumin [Mass/volume] in Serum or Plasma 3.5 g/dL 3.6-5.1 Below low normal Albumin [facility] ([facility]) Protein [Mass/volume] in Serum or Plasma 6.5 g/dL 6.1-8.1 Protein, Total [facility] ([facility]) Calcium [Mass/volume] in Serum or Plasma 8.2 mg/dL 8.6-10.3 Below low normal Calcium [facility] ([facility]) Albumin/Globulin [Mass Ratio] in Serum or Plasma 1.2 (calc) 1.0-2 .5 Albumin/globulin Ratio CH[facility] ([facility]) Alanine aminotransferase [Enzymatic activity/volume] in Seru m or Plasma 23 U/L 9-46 Alt CHANEL ([facility]) Alkaline phosphatase [Enzymatic activity/volume] in Serum or Plasma 121 U/L 35-144 Alkaline Phosphatase [facility] ([facility]) Aspartate aminotransferase [Enzymatic activity/volume] in Serum or Plasma 30 U/L 10-35 Ast CH[facility] ([facility]) Bilirubin.total [Mass/volume] in Serum or Plasma 0.2 mg/dL 0.2-1 .2 Bilirubin, Total [facility] ([facility]) ID Date Data Source [id number] 12/11/2020 12:00:00 AM EDT [place] ([facility]) Name Value Range Interpretation Code Description Data Cata rce(s) Supporting Document(s) Cholesterol [Mass/volume] in Serum or Plasma 155 mg/dL <200 Cholesterol, Total [facility] ([facility]) Cholesterol in HDL [Mass/volume] in Serum or Plasma 36 mg/dL > or = 40 Below low normal HDL Cholesterol [facility] ([facility]) Triglyceride [Mass/volume] in Serum or Plasma 154 mg/dL <150 Above high normal Triglycerides CH[facility] ([facility]) Cholesterol in LDL [Mass/volume] in Serum or Plasma by calculation 93 mg/dL_(calc) <100 LDL-cholesterol [facility] ([facility]) Cholesterol.total/Cholesterol in HDL [Mass Ratio] in Serum o r Plasma 4.3 calc <5.0 Chol/hdlc Ratio [facility] ([facility]) Cholesterol non HDL [Mass/volume] in Serum or Plasma 119 mg/dL_(niraj c) <130 Non HDL Cholesterol [facility] ([facility]) Lipoprotein.beta.subparticle [Moles/volume] in Serum or Plas ma 1257 nmol/L <1138 Above high normal LDL Particle Number [facility] ([facility]) Lipoprotein.beta.subparticle.small [Moles/volume] in Serum o r Plasma 361 nmol/L <142 Above high normal LDL Small CHANEL ([facility]) Lipoprotein.alpha.subparticle.large [Moles/volume] in Serum or Plasma 3456 nmol/L >6729 Below low normal HDL Large CHANEL ([facility]) Cholesterol in LDL real size pattern [Identifier] in Serum or Pl asma B A Abnormal (applies to non-numeric results) LDL Pattern CHANEL ([facility]) Lipoprotein.alpha 3 [Moles/volume] in Serum 247 nmol/L <215 Above high normal LDL Medium CHANEL ([facility]) Lipoprotein.beta.subparticle [Entitic length] in Serum or Pl asma 208.6 angstrom >222.9 Below low normal LDL Peak Size [facility] ([facility]) Apolipoprotein B [Mass/volume] in Serum or Plasma 93 mg/dL Above high normal Apolipoprotein B [facility] ([facility]) Lipoprotein a [Moles/volume] in Serum or Plasma <10 <75 Lipoprotein (a) [facility]ANEL ([facility]) ID Date Data Source [id number] 12/11/2020 12:00:00 AM EDT [facility]) Name Value Range Interpretation Code Description Data Cata rce(s) Supporting Document(s) Thyroxine (T4) [Mass/volume] in Serum or Plasma 4.7 mcg/dL 4.9-10.5 Below low normal T4 (Thyroxine), Total [facility]ANEL ([facility]) Triiodothyronine resin uptake (T3RU) in Serum or Plasma 33 % 22 -35 T3 Uptake [place] ([facility]) Thyroxine (T4) free index in Serum or Plasma by calculation 1.4-3.8 Free T4 Index (T7) [place] ([facility]) Thyrotropin [Units/volume] in Serum or Plasma 1.60 mIU/L 0.40-4.50 Tsh [facility]) ID Date Data Source [id number] 12/11/2020 12:00:00 AM EDT [facility]) Name Value Range Interpretation Code Description Data Cata rce(s) Supporting Document(s) Leukocytes [#/volume] in Blood by Automated count 7.6 thousand/uL 3 .8-10.8 White Blood Cell Count [place] ([facility]) Erythrocytes [#/volume] in Blood by Automated count 4.43 million/uL 4.20-5.80 Red Blood Cell Count CHANEL ([facility]) Hemoglobin [Mass/volume] in Blood 14.6 g/dL 13.2-17.1 He moglobin CHANEL ([facility]) Hematocrit [Volume Fraction] of Blood by Automated count 42.4 % 38.5-50.0 Hematocrit [facility] ([facility]) Erythrocyte mean corpuscular volume [Entitic volume] by Auto mated count 95.7 fL 80.0-100.0 Mcv [facility]ANEL ([facility]) Erythrocyte distribution width [Ratio] by Automated count 14.5 % 11.0-15.0 Rdw CHANEL ([facility]) Erythrocyte mean corpuscular hemoglobin concentration [Mass/volume] by Automated count 34.4 g/dL 32.0-36.0 Mchc [facility]ANEL ([facility]) Erythrocyte mean corpuscular hemoglobin [Entitic mass] by Automated count 33.0 pg 27.0-33.0 Mch [facility] ([facility]) Platelets [#/volume] in Blood by Automated count 260 thousand/uL 14 0-400 Platelet Count [facility] ([facility]) Monocytes [#/volume] in Blood by Automated count 889 cells/uL 200-9 50 Absolute Monocytes [facility] ([facility]) Platelet mean volume [Entitic volume] in Blood by Shreyas 10.2 f L 7.5-12.5 Mpv [facility]EL ([facility]) Lymphocytes [#/volume] in Blood by Automated count 2196 cells/uL 85 0-3900 Absolute Lymphocytes [facility] ([facility]) Neutrophils [#/volume] in Blood by Automated count 4134 cells/uL 15 00-7800 Absolute Neutrophils [facility] ([facility]) Lymphocytes/100 leukocytes in Blood by Automated count 28.9 % 15-49 Lymphocytes [facility] ([facility]) Eosinophils [#/volume] in Blood by Automated count 312 cells/uL 15- 500 Absolute Eosinophils [facility] ([facility]) Basophils [#/volume] in Blood by Automated count 68 cells/uL 0-200 Absolute Basophils [facility] ([facility]) Neutrophils/100 leukocytes in Blood by Automated count 54.4 % 38-80 Neutrophils [place] ([facility]) Eosinophils/100 leukocytes in Blood by Automated count 4.1 % 0-8 Eosinophils [facility] ([facility]) Monocytes/100 leukocytes in Blood by Automated count 11.7 % 0-13 Monocytes CHANEL [facility]) Basophils/100 leukocytes in Blood by Automated count 0.9 % 0-2 Basophils [facility]) ID Date Data Source [id number] 12/11/2020 12:00:00 AM EDT [facility]) Name Value Range Interpretation Code Description Data Cata rce(s) Supporting Document(s) Levetiracetam [Mass/volume] in Serum or Plasma 1.6 mcg/mL 1 2.0-46.0 Below low normal Levetiracetam [place] ([facility]) ID Date Data Source [id number] 12/11/2020 12:00:00 AM EDT [facility]) Name Value Range Interpretation Code Description Data Cata rce(s) Supporting Document(s) Urea nitrogen [Mass/volume] in Serum or Plasma 4 mg/dL 7-25 Below low normal Urea Nitrogen (BUN) [facility]) Glucose [Mass/volume] in Serum or Plasma 100 mg/dL 65-99 Above high normal Glucose [place]EL ([facility]) Creatinine [Mass/volume] in Serum or Plasma 0.78 mg/dL 0.70-1.25 Creatinine [place] ([facility]) Urea nitrogen/Creatinine [Mass Ratio] in Serum or Plasma 5 (calc ) 6-22 Below low normal BUN/creatinine Ratio [facility] ([facility]) Sodium [Moles/volume] in Serum or Plasma 147 mmol/L 135-146 Above high normal Sodium [place] ([facility]) Glomerular filtration rate/1.73 sq M.pre dicted among non-blacks [Volume Rate/Area] in Serum, Plasma or Blood by Creatinine-based formula (CKD-EPI) 93 mL/min/1.73m2 > or = 60 eGFR Non-afr. Polish [place]ANEL ([facility]) Glomerular filtration rate/1.73 sq M.pre dicted among blacks [Volume Rate/Area] in Serum, Plasma or Blood by Creatinine-based formula (CKD-EPI) 107 mL/min/1.73m2 > or = 60 eGFR [facility] ([facility]) Carbon dioxide, total [Moles/volume] in Serum or Plasma 20 mmol/L 20-32 Carbon Dioxide CH[facility] ([facility]) Chloride [Moles/volume] in Serum or Plasma 116 mmol/L 98-110 Above high normal Chloride [place] ([facility]) Potassium [Moles/volume] in Serum or Plasma 4.4 mmol/L 3.5-5.3 Potassium [place] ([facility]) Protein [Mass/volume] in Serum or Plasma 6.5 g/dL 6.1-8.1 Protein, Total [facility] ([facility]) Calcium [Mass/volume] in Serum or Plasma 8.2 mg/dL 8.6-10.3 Below low normal Calcium [place] ([facility]) Albumin [Mass/volume] in Serum or Plasma 3.5 g/dL 3.6-5.1 Below low normal Albumin [facility]) Bilirubin.total [Mass/volume] in Serum or Plasma 0.2 mg/dL 0.2-1 .2 Bilirubin, Total [facility]ANEL ([facility]) Albumin/Globulin [Mass Ratio] in Serum or Plasma 1.2 (calc) 1.0-2 .5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 60 [in_i] CHANEL ([facility]) Body mass index (BMI) [Ratio] 33.1 kg/m2 33.1 k g/m2 CHANEL ([facility]) Systolic blood pressure 131 mm[Hg] 131 mm[Hg] [facility] Body weight 2710 [oz_av] 2710 [oz_av] CHANEL ([facility]) Diastolic blood pressure 83 mm[Hg] 83 mm[Hg] CHANEL ([facility]) Body height 60 [in_i] 60 [in_i] CHANEL ([facility]) Body mass index (BMI) [Ratio] 33.1 kg/m2 33.1 k g/m2 CHANEL ([facility]) Systolic blood pressure 131 mm[Hg] 131 mm[Hg] A THENA ([facility]) Body weight 2710 [oz_av] 2710 [oz_av] CHANEL ([facility]) Body height 60 [in_i] 60 [in_i] CHANEL ([facility]) Body height 60 [in_i] 60 [in_i] CHANEL ([facility]) Body height 60 [in_i] 60 [in_i] CHANEL ([facility]) Body height 60 [in_i] 60 [in_i] CHANEL ([facility]) Body height 60 [in_i] 60 [in_i] CHANEL ([facility]) Body height 60 [in_i] 60 [in_i] CHANEL ([facility]) Body height 60 [in_i] 60 [in_i] CHANEL ([facility]) Body height 60 [in_i] 60 [in_i] CHANEL ([facility]) Body height 60 [in_i] 60 [in_i] CHANEL ([facility]) Body height 60 [in_i] 60 [in_i] CHANEL ([facility]) Body height 60 [in_i] 60 [in_i] CHANEL ([facility]) Body height 60 [in_i] 60 [in_i] CHANEL ([facility]) Body height 60 [in_i] 60 [in_i] CHANEL ([facility]) Diastolic blood pressure 86 mm[Hg] 86 mm[Hg] CHANEL ([facility]) Body height 60 [in_i] 60 [in_i] CHANEL ([facility]) Body mass index (BMI) [Ratio] 30.66 kg/m2 30.66 kg/m2 CHANEL ([facility]) Systolic blood pressure 122 mm[Hg] 122 mm[Hg] A THENA ([facility]) Body weight 2502.4 [oz_av] 2502.4 [oz_av] ATHEN A ([facility]) Diastolic blood pressure 86 mm[Hg] 86 mm[Hg] CHANEL ([facility]) Body height 60 [in_i] 60 [in_i] CHANEL ([facility]) Body mass index (BMI) [Ratio] 30.66 kg/m2 30.66 kg/m2 CHANEL ([facility]) Systolic blood pressure 122 mm[Hg] 122 mm[Hg] A THENA ([facility]) Body weight 2502.4 [oz_av] 2502.4 [oz_av] ATHEN A ([facility]) Diastolic blood pressure 86 mm[Hg] 86 mm[Hg] CHANEL ([facility]) Body height 60 [in_i] 60 [in_i] CHANEL ([facility]) Body mass index (BMI) [Ratio] 30.66 kg/m2 30.66 kg/m2 CHANEL ([facility]) Systolic blood pressure 122 mm[Hg] 122 mm[Hg] A THENA ([facility]) Body weight 2502.4 [oz_av] 2502.4 [oz_av] ATHEN A ([facility]) Diastolic blood pressure 86 mm[Hg] 86 mm[Hg] CHANEL ([facility]) Body height 60 [in_i] 60 [in_i] CHANEL ([facility]) Body mass index (BMI) [Ratio] 30.66 kg/m2 30.66 kg/m2 CHANEL ([facility]) Systolic blood pressure 122 mm[Hg] 122 mm[Hg] A THENA ([facility]) Body weight 2502.4 [oz_av] 2502.4 [oz_av] ATHEN A ([facility]) Diastolic blood pressure 86 mm[Hg] 86 mm[Hg] CHANEL ([facility]) Body height 60 [in_i] 60 [in_i] CHANEL ([facility]) Body mass index (BMI) [Ratio] 30.66 kg/m2 30.66 kg/m2 CHANEL ([facility]) Systolic blood pressure 122 mm[Hg] 122 mm[Hg] A THENA ([facility]) Body weight 2502.4 [oz_av] 2502.4 [oz_av] ATHEN A ([facility]) Diastolic blood pressure 86 mm[Hg] 86 mm[Hg] CHANEL ([facility]) Body height 60 [in_i] 60 [in_i] CHANEL ([facility]) Body mass index (BMI) [Ratio] 30.66 kg/m2 30.66 kg/m2 CHANEL ([facility]) Systolic blood pressure 122 mm[Hg] 122 mm[Hg] A RAVENA ([facility]) Body weight 2502.4 [oz_av] 2502.4 [oz_av] ATHEN A ([facility]) Diastolic blood pressure 86 mm[Hg] 86 mm[Hg] CHANEL ([facility]) Body height 60 [in_i] 60 [in_i] CHANEL ([facility]) Body mass index (BMI) [Ratio] 30.66 kg/m2 30.66 kg/m2 CHANEL ([facility]) Systolic blood pressure 122 mm[Hg] 122 mm[Hg] A RAVENA ([facility]) Body weight 2502.4 [oz_av] 2502.4 [oz_av] ATHEN A ([facility]) Body temperature 98.8 [degF] 98.8 [degF] MEDENT ([facility] ) Body height 64 [in_i] 64 [in_i] MEDENT ([facility]) 5'4" Body weight 150.00 [lb_av] 150.00 [lb_av] MEDEN T ([facility] ) Body mass index (BMI) [Ratio] 25.7 kg/m2 25.7 k g/m2 MEDENT ([facility] ) Patient Treatment Plan of Care Planned Activity Planned Date Details Description Data Source (s) Acetaminophen 325 MG / Oxycodone Hydrochloride 5 MG Oral Tablet CHANEL ([facility]) Acetaminophen 325 MG / Oxycodone Hydrochloride 5 MG Oral Tablet CHANEL ([facility]) Acetaminophen 325 MG / Oxycodone Hydrochloride 5 MG Oral Tablet CHANEL ([facility]) Acetaminophen 325 MG / Oxycodone Hydrochloride 5 MG Oral Tablet CHANEL ([facility]) Acetaminophen 325 MG / Oxycodone Hydrochloride 5 MG Oral Tablet CHANEL ([facility])
[2021-06-03 18:46] LABS: BASO # 0.1 10^3/uL (0.0-0.2); BASO % 0.9 % (0.0-1.0); EOS # 0.3 10^3/uL (0.0-0.5); EOS % 4.4 % (0.0-3.0); HEMATOCRIT 47.4 % (42.0-52.0); HEMOGLOBIN 16.1 g/dl (13.5-17.5); LYMPH # 2.1 10^3/uL (1.5-5.0); LYMPH % 27.3 % (24.0-44.0); MEAN CORPUSCULAR HEMOGLOBIN 32.6 pg (27.0-33.0); MONO # 0.6 10^3/uL (0.0-0.8); MONO % 8.3 % (2.0-8.0); NEUTROPHILS # 4.5 10^3/uL (1.5-8.5); NEUTROPHILS % 58.7 % (36.0-66.0); PLATELET COUNT, AUTOMATED 229 10^3/uL (150-450); RED BLOOD COUNT 4.94 10^6/uL (4.30-6.10); WHITE BLOOD COUNT 7.7 10^3/uL (4.0-10.0)
--- NOTE | 2021-06-03 18:53 | REP ---
INDICATION: chest pain, hx PTX. COMPARISON: 03/07/2020 TECHNIQUE: Portable FINDINGS: The technique utilized in obtaining the radiograph has magnified the cardiac silhouette and accentuated the interstitial markings. The cardiomediastinal silhouette and lung sage are unchanged. No acute patchy parenchymal opacities or pleural effusions have developed. There is no significant change in appearance of the osseous structures. IMPRESSION: There is no acute cardiopulmonary disease. <Electronically signed by Vern Holland > 06/03/21 [id number]
[2021-06-03 19:11] LABS: ERYTHROCYTE SEDIMENTATION RATE 3 mm/hr (0-20)
[2021-06-03 19:13] LABS: C REACTIVE PROTEIN QUANTITATIV < 0.30 MG/DL (0.00-0.30); CK-MB VALUE MASS 2.2 NG/ML (<3.6); CPK CREATINE PHOSPHOKINASE 129 U/L (39-308); MB/CK RELATIVE INDEX 1.71 (< OR =4); TROPONIN I < 0.02 NG/ML (< 0.10)
[2021-06-03] MEDS ORDERED: ISOVUE-370 76% 100ML VIAL As Ordered ONE (19:31)
--- NOTE | 2021-06-03 20:43 | REPVR ---
PROCEDURE INFORMATION: Exam: CTA Chest With Contrast Exam date and time: 06/03/2021 8:07 PM Age: 70 years old Clinical indication: Pain; Angina pectoris; Additional info: Chest pain, known dvt lle TECHNIQUE: Imaging protocol: Computed tomographic angiography of the chest with contrast. 3D rendering (Not supervised by radiologist): MIP and/or 3D reconstructed images were created by the technologist. Radiation optimization: All CT scans at this facility use at least one of these dose optimization techniques: automated exposure control; mA and/or kV adjustment per patient size (includes targeted exams where dose is matched to clinical indication); or iterative reconstruction. Contrast material: ISOVUE 370; Contrast volume: 75 ml; Contrast route: INTRAVENOUS (IV); COMPARISON: CT Chest without contrast 10/13/2019 10:28 AM FINDINGS: Pulmonary arteries: There are no abnormal filling defects within the pulmonary arterial system. The examination is negative for pulmonary thromboembolism. Aorta: The thoracic aorta is tortuous. No thoracic aortic aneurysm. Lungs: Linear atelectasis or parenchymal scarring in the inferior left lingula. Pleural spaces: No pleural effusion. No pneumothorax. Heart: Cardiomegaly. No pericardial effusion. Mediastinal space: The appearance of the distal esophagus suggests a small hiatal hernia. Lymph nodes: Mediastinal and hilar lymph nodes remain within upper limits of normal. Liver: There is a diffuse decrease in hepatic parenchymal density, consistent with fatty infiltration. Gallbladder and bile ducts: Cholelithiasis noted. Bones/joints: Old healed rib fractures bilaterally. Old healed fracture of the right clavicle. Spinal degenerative changes. IMPRESSION: 1. No pulmonary embolism identified. 2. Cardiomegaly. 3. Linear atelectasis or parenchymal scarring in the inferior left lingula. 4. Multiple old healed fractures. 5. Hepatic steatosis. 6. Cholelithiasis. Electronically signed by: Tri Downs On 06/03/2021 20:43:23 PM
[2021-06-03 21:49] VITALS: BP 168/89
--- NOTE | 2021-06-04 09:46 | ECGEPIP ---
[facility] - ED Test Date: 2021-06-03 Pat Name: NEFTALI FINCH Department: Room: - Gender: Male Disability Insurance Claim Examiner: SHANA : 1950 Requested By: JOLIE Martinez PA-C Order Number: [id number] Reading MD: Elva Mcfarlane Measurements Intervals [place] Rate: 86 P: 33 DC: 184 QRS: -29 QRSD: 86 T: 27 QT: 386 QTc: 461 Interpretive Statements Normal sinus rhythm Inferior infarct , age undetermined NSTTW abnormalities similar 09/08/20 Electronically Signed on 06-04-2021 9:46:13 EDT by Evla Mcfarlane
== END 2021-06-03 21:54 | disposition home or self-care (01) ==
LOC: M ED 15:28
DX: I82.403 Acute embolism and thrombosis of unspecified deep veins of lower extremity, bilateral (principal); I74.3 Embolism and thrombosis of arteries of the lower extremities; K80.20 Calculus of gallbladder without cholecystitis without obstruction; I11.9 Hypertensive heart disease without heart failure; F17.210 Nicotine dependence, cigarettes, uncomplicated; F10.10 Alcohol abuse, uncomplicated; Z79.01 Long term (current) use of anticoagulants
CPT/HCPCS: 71045; 71275; 80047; 82550; 82553; 83605; 84484; 85025; 85652; 86140; 93005; 93970; 96360; 96361; 99284; Q9967

== ENCOUNTER → 2021-09-11 | Outpatient (REF) | payer MEDICARE | LOC: M LAB REF 18:15 | PROVIDERS: ATTEND Family Medicine Addiction Medicine | DX: N39.0 Urinary tract infection, site not specified (principal) ==

== ENCOUNTER 2021-10-07 08:02 | Emergency (ER) | payer MEDICARE, MEDICAID ==
[~2021-10-07] VITALS: Ht 162.6 cm; Wt 84.9 kg
[~2021-10-07 08:02] MED LIST changes: +CIPR250T3 PO; +FLOM0.4C39 PO
[2021-10-07] MEDS ORDERED: TAMS1CAP17 (08:18)
[2021-10-07] MEDS ORDERED: CIPR-249 PO (10:41)
[2021-10-07 10:56] VITALS: BP 147/85
== END 2021-10-07 11:04 | disposition home or self-care (01) ==
LOC: M ED 08:02
DX: N39.0 Urinary tract infection, site not specified (principal); I10 Essential (primary) hypertension; F17.290 Nicotine dependence, other tobacco product, uncomplicated; F41.8 Other specified anxiety disorders; F32.A Depression, unspecified; Z79.01 Long term (current) use of anticoagulants; Z79.899 Other long term (current) drug therapy

== ENCOUNTER 2021-12-08 20:09 | Observation (INO) | payer MEDICAID, MEDICARE ==
[~2021-12-08] VITALS: Ht 162.6 cm; Wt 79.8 kg
[~2021-12-08 20:09] MED LIST changes: +CIPR-249 PO; +TAMS1CAP17
[2021-12-08] MEDS ORDERED: NS 1,000 ML IV ONE (20:40)
[2021-12-08 21:01] LABS: ABG BASE EXCESS -4.4 (-2.0-2.0); ABG HCO3 18.7 MEQ/L (22.0-26.0); ABG O2 SATURATION 97.4 % (95.0-99.0); ABG PARTIAL PRESSURE CO2 29.7 mmHg (35.0-45.0); ABG PARTIAL PRESSURE O2 92.6 mmHg (75.0-100.0); ABG STANDARD HCO3 20.9 MEQ/L (22.0-26.0); ABG TOTAL CO2 19.6 MEQ/L (23.0-31.0); ABG pH (ARTERIAL) 7.417 UNITS (7.350-7.450)
[2021-12-08 21:07] LABS: BASO # 0.1 10^3/uL (0.0-0.2); BASO % 0.8 % (0.0-1.0); EOS # 0.2 10^3/uL (0.0-0.5); EOS % 2.7 % (0.0-3.0); HEMATOCRIT 42.5 % (42.0-52.0); HEMOGLOBIN 15.1 g/dl (13.5-17.5); LYMPH % 11.8 % (24.0-44.0); MEAN CORPUSCULAR HEMOGLOBIN 33.7 pg (27.0-33.0); MEAN CORPUSCULAR HGB CONC 35.5 g/dl (32.0-36.5); MEAN CORPUSCULAR VOLUME 94.9 fl (80.0-96.0); MONO # 0.6 10^3/uL (0.0-0.8); MONO % 7.1 % (2.0-8.0); NEUTROPHILS # 6.6 10^3/uL (1.5-8.5); NEUTROPHILS % 76.6 % (36.0-66.0); PLATELET COUNT, AUTOMATED 209 10^3/uL (150-450); RED BLOOD COUNT 4.48 10^6/uL (4.30-6.10); WHITE BLOOD COUNT 8.6 10^3/uL (4.0-10.0)
[2021-12-08 21:35] LABS: CK-MB VALUE MASS 2.6 NG/ML (<3.6); MB/CK RELATIVE INDEX 1.9 (< OR =4)
[2021-12-08 21:39] LABS: ACETAMINOPHEN LEVEL < 2.0 UG/ML (10.0-30.0); ALBUMIN 3.5 GM/DL (3.2-5.2); ALT/SGPT 31 U/L (12-78); BILIRUBIN,DIRECT 0.3 MG/DL (0.0-0.2); BILIRUBIN,TOTAL 0.4 MG/DL (0.2-1.0); BLOOD UREA NITROGEN 7 MG/DL (7-18); CALCIUM LEVEL 9.4 MG/DL (8.8-10.2); CARBON DIOXIDE LEVEL 22 MEQ/L (21-32); CHLORIDE LEVEL 104 MEQ/L (98-107); CREATININE FOR GFR 1.04 MG/DL (0.70-1.30); ETHYL ALCOHOL (ETHANOL) 0.006 % (0.000-0.010); GLOMERULAR FILTRATION RATE > 60.0 (>49); GLUCOSE, FASTING 109 MG/DL (70-100); POTASSIUM SERUM 4.4 MEQ/L (3.5-5.1); SALICYLATE LEVEL < 1.7 MG/DL (5.0-30.0); SODIUM LEVEL 135 MEQ/L (136-145); TOTAL PROTEIN 7.8 GM/DL (6.4-8.2)
[2021-12-08] MEDS ORDERED: OXAZEPAM 15MG CAP PO ONE (21:50)
[2021-12-08 22:53] LABS: CK-MB VALUE MASS 2.8 NG/ML (<3.6); MB/CK RELATIVE INDEX 1.99 (< OR =4)
[2021-12-09 00:34] LABS: AMPHETAMINES LEVEL URINE NEGATIVE (NEGATIVE); BARBITURATES URINE NEGATIVE (NEGATIVE); BENZODIAZEPINES URINE NEGATIVE (NEGATIVE); CANNABINOIDS URINE NEGATIVE (NEGATIVE); COCAINE METABOLITE URINE NEGATIVE (NEGATIVE); METHADONE URINE NEGATIVE (NEGATIVE); OPIATES URINE NEGATIVE (NEGATIVE); PHENCYCLIDINE URINE NEGATIVE (NEGATIVE)
[2021-12-09] MEDS ORDERED: levETIRAcetam INJection 750 MG in D5W 100 ML IV ONE (01:00)
[2021-12-09] MEDS ORDERED: NS 1,000 ML IV SCH (02:10)
[2021-12-09] MEDS ORDERED: NS 500 ML IV ONE (02:10)
[2021-12-09 02:16] LABS: RSV AMPLIFICATION NEGATIVE (NEGATIVE)
[2021-12-09] MEDS ORDERED: LORazepam 2 MG TAB PO PRN (02:40)
[2021-12-09] MEDS ORDERED: FLOM0.4C39 PO (04:22)
[2021-12-09] MEDS ORDERED: C 50TAB PO (04:22)
[2021-12-09] MEDS ORDERED: LISI20TA33 PO (04:22)
[2021-12-09] MEDS ORDERED: HOME MED LIST COMPLETE! XX SCH (04:25)
[2021-12-09 05:27] VITALS: BP 148/94
[2021-12-09 05:37] VITALS: BP 148/94
[2021-12-09 08:27] LABS: BLOOD UREA NITROGEN 6 MG/DL (7-18); CALCIUM LEVEL 8.3 MG/DL (8.8-10.2); CARBON DIOXIDE LEVEL 22 MEQ/L (21-32); CHLORIDE LEVEL 106 MEQ/L (98-107); CREATININE FOR GFR 0.84 MG/DL (0.70-1.30); GLOMERULAR FILTRATION RATE > 60.0 (>49); GLUCOSE, FASTING 99 MG/DL (70-100); MAGNESIUM LEVEL 1.9 MG/DL (1.8-2.4); POTASSIUM SERUM 3.8 MEQ/L (3.5-5.1); SODIUM LEVEL 135 MEQ/L (136-145)
[2021-12-09] MEDS ORDERED: MULTIVITAMINS/MINERALS THERAP 1 TAB PO SCH (09:00)
[2021-12-09] MEDS ORDERED: THIAMINE 100 MG TAB PO SCH (09:00)
[2021-12-09] MEDS ORDERED: FOLIC ACID 1 MG TAB PO SCH (09:00)
[2021-12-09] MEDS ORDERED: levETIRAcetam 250MG TABLET (KEPPRA) PO SCH (09:00)
[2021-12-09 10:00] VITALS: BP 127/72
[2021-12-09] MEDS ORDERED: FOLI1TAB11 PO (10:15)
[2021-12-09] MEDS ORDERED: VITMTA PO (10:15)
[2021-12-09] MEDS ORDERED: THIA100TA PO (10:15)
[2021-12-09] MEDS ORDERED: OXAZEPAM 15MG CAP PO ONE (10:45)
[2021-12-09 11:13] VITALS: BP 127/72
== END 2021-12-09 12:22 | disposition home or self-care (01) ==
LOC: M ED 20:09 → M ED INP 20:10 → M MS5PR 12-09 05:25
PROVIDERS: ADMIT Internal Medicine; ATTEND Internal Medicine
DX: F10.232 Alcohol dependence with withdrawal with perceptual disturbance (principal); G40.89 Other seizures; Z91.14 Patient's other noncompliance with medication regimen; E87.2 Acidosis; G93.41 Metabolic encephalopathy; I10 Essential (primary) hypertension; F32.9 Major depressive disorder, single episode, unspecified; N40.0 Benign prostatic hyperplasia without lower urinary tract symptoms; Z79.01 Long term (current) use of anticoagulants; Z79.899 Other long term (current) drug therapy; G40.909 Epilepsy, unspecified, not intractable, without status epilepticus
CPT/HCPCS: 36415; 36600; 70450; 71045; 80047; 80048; 80076; 80143; 80307; 82077; 82140; 82550; 82553; 82803; 83605; 83735; 84443; 84484; 85025; 87631; 93005; 93041; 94760; 96361; 96365; 96366; 96375; 96376; 97161; 97530; 99285; G0378; J1953

== ENCOUNTER 2022-03-07 08:38 | Emergency (ER) | payer MEDICAID, MEDICARE ==
[~2022-03-07 08:38] MED LIST changes: +C 50TAB PO
[2022-03-07 09:50] LABS: BASO # 0.1 10^3/uL (0.0-0.2); EOS # 0.7 10^3/uL (0.0-0.5); EOS % 9.8 % (0.0-3.0); HEMOGLOBIN 15.3 g/dl (13.5-17.5); LYMPH # 1.1 10^3/uL (1.5-5.0); LYMPH % 15.6 % (24.0-44.0); MEAN CORPUSCULAR HEMOGLOBIN 33.5 pg (27.0-33.0); MEAN CORPUSCULAR VOLUME 98.5 fl (80.0-96.0); MONO # 0.6 10^3/uL (0.0-0.8); NEUTROPHILS # 4.8 10^3/uL (1.5-8.5); NEUTROPHILS % 65.3 % (36.0-66.0); PLATELET COUNT, AUTOMATED 273 10^3/uL (150-450); RED BLOOD COUNT 4.57 10^6/uL (4.30-6.10); WHITE BLOOD COUNT 7.3 10^3/uL (4.0-10.0)
[2022-03-07 10:01] LABS: INR 1.28; PROTHROMBIN TIME 16.4 SECONDS (12.7-14.5)
[2022-03-07 10:37] LABS: ERYTHROCYTE SEDIMENTATION RATE 7 mm/hr (0-20)
[2022-03-07 11:03] LABS: BLOOD UREA NITROGEN 4 MG/DL (7-18); C REACTIVE PROTEIN QUANTITATIV 0.55 MG/DL (0.00-0.30); CALCIUM LEVEL 8.8 MG/DL (8.8-10.2); CARBON DIOXIDE LEVEL 25 MEQ/L (21-32); CHLORIDE LEVEL 104 MEQ/L (98-107); CREATININE FOR GFR 0.88 MG/DL (0.70-1.30); GLOMERULAR FILTRATION RATE > 60.0 (>49); GLUCOSE, FASTING 89 MG/DL (70-100); NT-PRO BNP 63 PG/ML (<125); POTASSIUM SERUM 4.3 MEQ/L (3.5-5.1); SODIUM LEVEL 136 MEQ/L (136-145)
[2022-03-07] MEDS ORDERED: cefTRIAXone SOD 1 GM in D5W MINI-BAG PLUS 50 ML IV ONE (12:05)
[2022-03-07 12:44] VITALS: BP 162/97
[2022-03-07 12:44] LABS: RSV AMPLIFICATION NEGATIVE (NEGATIVE)
[2022-03-07] MEDS ORDERED: DOXY-443 PO (12:58)
[2022-03-07] MEDS ORDERED: HOME MED LIST COMPLETE! XX SCH (13:15)
[2022-03-07] MEDS ORDERED: DOXYCYCLINE HYCLATE 100MG TABLET PO ONE (13:25)
== END 2022-03-07 13:48 | disposition home or self-care (01) ==
LOC: M ED 08:38 → EDBD 08:38 → M ED 13:48
DX: I87.2 Venous insufficiency (chronic) (peripheral) (principal); L03.116 Cellulitis of left lower limb; R21 Rash and other nonspecific skin eruption; I10 Essential (primary) hypertension; E78.5 Hyperlipidemia, unspecified; F17.200 Nicotine dependence, unspecified, uncomplicated; F10.10 Alcohol abuse, uncomplicated; Z79.811 Long term (current) use of aromatase inhibitors; Z79.899 Other long term (current) drug therapy
CPT/HCPCS: 71045; 73630; 80048; 83880; 85025; 85610; 85652; 86140; 87631; 93971; 96365; 99284; J0696

== ENCOUNTER 2022-04-23 14:11 | Emergency (ER) | payer MEDICARE ==
[~2022-04-23] VITALS: Ht 160 cm; Wt 86.1 kg
[~2022-04-23 14:11] MED LIST changes: +DOXY-443 PO
[2022-04-23] MEDS ORDERED: NS 500 ML IV ONE (18:10)
[2022-04-23 19:24] LABS: BASO # 0.1 10^3/uL (0.0-0.2); BASO % 0.9 % (0.0-1.0); EOS # 0.6 10^3/uL (0.0-0.5); EOS % 7.7 % (0.0-3.0); HEMATOCRIT 41.7 % (42.0-52.0); HEMOGLOBIN 14.3 g/dl (13.5-17.5); LYMPH # 1.8 10^3/uL (1.5-5.0); LYMPH % 22.7 % (24.0-44.0); MEAN CORPUSCULAR HEMOGLOBIN 33.9 pg (27.0-33.0); MEAN CORPUSCULAR HGB CONC 34.3 g/dl (32.0-36.5); MEAN CORPUSCULAR VOLUME 98.8 fl (80.0-96.0); MONO # 0.6 10^3/uL (0.0-0.8); NEUTROPHILS % 61.2 % (36.0-66.0); PLATELET COUNT, AUTOMATED 306 10^3/uL (150-450); RED BLOOD COUNT 4.22 10^6/uL (4.30-6.10); WHITE BLOOD COUNT 8.1 10^3/uL (4.0-10.0)
[2022-04-23 19:39] LABS: INR 1.08; PROTHROMBIN TIME 14.4 SECONDS (12.7-14.5)
[2022-04-23 19:40] LABS: PARTIAL THROMBOPLASTIN TIME 31.7 SECONDS (25.9-37.0)
[2022-04-23 19:42] LABS: D-DIMER QUANT 884.73 ng/ml (<500)
[2022-04-23 19:49] LABS: ERYTHROCYTE SEDIMENTATION RATE 15 mm/hr (0-20)
[2022-04-23 20:15] LABS: ALBUMIN 3.6 GM/DL (3.2-5.2); BILIRUBIN,DIRECT 0.2 MG/DL (0.0-0.2); BILIRUBIN,TOTAL 0.5 MG/DL (0.2-1.0); C REACTIVE PROTEIN QUANTITATIV 0.66 MG/DL (0.00-0.30); TOTAL PROTEIN 7.9 GM/DL (6.4-8.2)
[2022-04-23 20:20] LABS: HEMOGLOBIN A1c 5.1 %
[2022-04-23] MEDS ORDERED: DOXYCYCLINE HYCLATE 100MG TABLET PO ONE (21:15)
[2022-04-23] MEDS ORDERED: DOXY-443 PO (21:16)
[2022-04-23 21:33] VITALS: BP 140/82
== END 2022-04-23 21:58 | disposition home or self-care (01) ==
LOC: M ED 14:11 → EDBD 14:11 → M ED 21:58
DX: R22.43 Localized swelling, mass and lump, lower limb, bilateral (principal); I10 Essential (primary) hypertension; E78.5 Hyperlipidemia, unspecified; F41.9 Anxiety disorder, unspecified; F32.A Depression, unspecified; G40.89 Other seizures; F17.200 Nicotine dependence, unspecified, uncomplicated; F10.10 Alcohol abuse, uncomplicated; Z86.718 Personal history of other venous thrombosis and embolism; Z79.01 Long term (current) use of anticoagulants; Z79.811 Long term (current) use of aromatase inhibitors; Z79.899 Other long term (current) drug therapy

== ENCOUNTER → 2022-07-13 | Outpatient (CLI) | payer MEDICARE ==
[~2022-07-13] MED LIST changes: -PAXI10TA12 PO; +PAXI10TA13 PO
== END ==
LOC: M LAB 10:07
PROVIDERS: ATTEND Physician Assistant
DX: R97.20 Elevated prostate specific antigen [PSA] (principal)

== ENCOUNTER 2022-08-10 21:58 | Inpatient (IN) | payer MEDICARE, MEDICAID ==
[~2022-08-10] VITALS: Ht 160 cm; Wt 77.0 kg
[2022-08-10] MEDS ORDERED: FOLI1TAB11 (22:48)
[2022-08-10 22:52] LABS: ABG BASE EXCESS -16.3 (-2.0-2.0); ABG HCO3 7.7 MEQ/L (22.0-26.0); ABG O2 SATURATION 98.3 % (95.0-99.0); ABG PARTIAL PRESSURE CO2 17.4 mmHg (35.0-45.0); ABG STANDARD HCO3 12.7 MEQ/L (22.0-26.0); ABG TOTAL CO2 8.3 MEQ/L (23.0-31.0); ABG pH (ARTERIAL) 7.266 UNITS (7.350-7.450)
[2022-08-10 23:49] LABS: BASO % 0.2 % (0.0-1.0); EOS % 0.2 % (0.0-3.0); HEMATOCRIT 45.7 % (42.0-52.0); LYMPH # 1.3 10^3/uL (1.5-5.0); LYMPH % 10.1 % (24.0-44.0); MEAN CORPUSCULAR HEMOGLOBIN 32.1 pg (27.0-33.0); MEAN CORPUSCULAR VOLUME 91.6 fl (80.0-96.0); MONO % 13.4 % (2.0-8.0); NEUTROPHILS # 9.8 10^3/uL (1.5-8.5); NEUTROPHILS % 75.4 % (36.0-66.0); PLATELET COUNT, AUTOMATED 269 10^3/uL (150-450); RED BLOOD COUNT 4.99 10^6/uL (4.30-6.10)
[2022-08-11 00:08] LABS: CK-MB VALUE MASS 1.5 NG/ML (<3.6)
[2022-08-11 00:09] LABS: ETHYL ALCOHOL (ETHANOL) 0.003 % (0.000-0.010)
[2022-08-11 00:10] LABS: CPK CREATINE PHOSPHOKINASE 94 U/L (46-171); MB/CK RELATIVE INDEX 1.59 (< OR =4)
[2022-08-11 00:11] LABS: ACETAMINOPHEN LEVEL < 2.0 UG/ML (10.0-20.0); BILIRUBIN,DIRECT 0.3 MG/DL (<0.4); SALICYLATE LEVEL < 3.0 MG/DL (<30)
[2022-08-11 00:12] LABS: THYROID STIMULATING HORMONE 0.686 uIU/ML (0.55-4.78)
[2022-08-11 00:23] LABS: ALBUMIN 3.3 G/DL (3.2-5.2); ALKALINE PHOSPHATASE 100 U/L (46-116); ALT/SGPT 36 U/L (7.0-40); AST/SGOT 27 U/L (<34); BILIRUBIN,TOTAL 0.5 MG/DL (0.3-1.2); BLOOD UREA NITROGEN 139 MG/DL (9-23); CALCIUM LEVEL 8.4 MG/DL (8.3-10.6); CARBON DIOXIDE LEVEL 12 MMOL/L (20-31); CHLORIDE LEVEL 85 MMOL/L (98-107); CREATININE FOR GFR 15.71 MG/DL (0.70-1.30); GLOMERULAR FILTRATION RATE 3.3 (>49); GLUCOSE, FASTING 90 MG/DL (74-106); POTASSIUM SERUM 4.5 MMOL/L (3.5-5.1); SODIUM LEVEL 127 MMOL/L (136-145); TOTAL PROTEIN 7.5 G/DL (5.7-8.2)
[2022-08-11] MEDS ORDERED: SODIUM BICARBONATE 8.4% INJ 50ML SYRINGE IV ONE (00:25)
[2022-08-11 00:43] LABS: MONO # 1.7 10^3/uL (0.0-0.8)
[2022-08-11] MEDS ORDERED: LIDOCAINE 2% 5ML JELLY UROJET TOP ONE (00:50)
[2022-08-11 00:52] LABS: RSV AMPLIFICATION NEGATIVE (NEGATIVE)
[2022-08-11] MEDS ORDERED: SODIUM BICARBONATE 150 MEQ in D5W 1,000 ML IV SCH ×2 (01:00→12:30)
[2022-08-11 02:43] LABS: AMPHETAMINES LEVEL URINE NEGATIVE (NEGATIVE); BARBITURATES URINE NEGATIVE (NEGATIVE); BENZODIAZEPINES URINE NEGATIVE (NEGATIVE); COCAINE METABOLITE URINE NEGATIVE (NEGATIVE); METHADONE URINE NEGATIVE (NEGATIVE); OPIATES URINE NEGATIVE (NEGATIVE)
[2022-08-11 02:44] LABS: CANNABINOIDS URINE NEGATIVE (NEGATIVE); PHENCYCLIDINE URINE NEGATIVE (NEGATIVE)
[2022-08-11] MEDS ORDERED: MOM 30ML SUSPENSION UDC PO PRN (03:30)
[2022-08-11] MEDS ORDERED: LORazepam 2 MG TAB PO PRN (03:40)
[2022-08-11] MEDS: THIAMINE 100 MG TAB PO SCH ×2 (04:00→21:00)
[2022-08-11] MEDS: cefTRIAXone SOD 1 GM in D5W MINI-BAG PLUS 50 ML IV SCH (04:17)
[2022-08-11] MEDS ORDERED: THIAMINE 200MG 2ML VIAL IV ONE (07:40)
[2022-08-11 08:14] LABS: HEMATOCRIT 42.9 % (42.0-52.0); HEMOGLOBIN 15.9 g/dl (13.5-17.5); MEAN CORPUSCULAR HEMOGLOBIN 32.6 pg (27.0-33.0); MEAN CORPUSCULAR VOLUME 88.1 fl (80.0-96.0); PLATELET COUNT, AUTOMATED 225 10^3/uL (150-450); RED BLOOD COUNT 4.87 10^6/uL (4.30-6.10); WHITE BLOOD COUNT 10.3 10^3/uL (4.0-10.0)
[2022-08-11 08:21] LABS: MEAN CORPUSCULAR HGB CONC 37.1 g/dl (32.0-36.5)
[2022-08-11 08:23] LABS: MAGNESIUM LEVEL 2.1 MG/DL (1.8-2.4)
[2022-08-11 08:29] LABS: BILIRUBIN,TOTAL 0.7 MG/DL (0.3-1.2); CALCIUM LEVEL 8.1 MG/DL (8.3-10.6); CREATININE FOR GFR 11.92 MG/DL (0.70-1.30); GLOMERULAR FILTRATION RATE 4.5 (>49); POTASSIUM SERUM 3.5 MMOL/L (3.5-5.1); TOTAL PROTEIN 6.8 G/DL (5.7-8.2)
[2022-08-11] MEDS: MULTIVITAMINS/MINERALS THERAP 1 TAB PO SCH (08:29)
[2022-08-11] MEDS: FOLIC ACID 1MG TAB PO SCH (08:29)
[2022-08-11] MEDS: DOCUSATE SODIUM 100MG CAPSULE PO SCH ×2 (08:29→21:00)
[2022-08-11] MEDS ORDERED: lisinopriL 40MG TAB PO SCH (09:00)
[2022-08-11] MEDS ORDERED: levETIRAcetam 250MG TABLET (KEPPRA) PO SCH (09:00)
[2022-08-11] MEDS ORDERED: LISI40TA4 PO (09:01)
[2022-08-11] MEDS ORDERED: HOME MED LIST COMPLETE! XX SCH (09:05)
[2022-08-11] MEDS ORDERED: **hydrALAZINE HCL** 25 MG TAB PO PRN (11:30)
[2022-08-11] MEDS: TAMSULOSIN 0.4 MG CAP PO SCH (11:59)
[2022-08-11] MEDS ORDERED: OXAZEPAM 15MG CAP PO ONE (12:00)
[2022-08-11] MEDS: OSELTAMIVIR PHOSPHATE 30MG CAPSULE PO SCH (12:56)
[2022-08-11] MEDS: PARoxetine 10MG TABLET PO SCH (12:56)
[2022-08-11] MEDS ORDERED: NS 250 ML IV ONE (13:40)
[2022-08-11 14:45] LABS: CALCIUM LEVEL 8.3 MG/DL (8.3-10.6); CREATININE FOR GFR 9.26 MG/DL (0.70-1.30); POTASSIUM SERUM 2.8 MMOL/L (3.5-5.1)
[2022-08-11] MEDS ORDERED: SODIUM CHLORIDE 0.9% 1000ML IV ONE (15:05)
[2022-08-11 15:48] LABS: HEMATOCRIT 45.4 % (42.0-52.0); HEMOGLOBIN 16.4 g/dl (13.5-17.5)
[2022-08-11] MEDS: SODIUM BICARBONATE 150 MEQ in D5W 1,000 ML IV SCH (16:40)
[2022-08-11] MEDS: KCL 10MEQ/100ML SWI (KRUN) 10 MEQ in IV 1 EA IV SCH ×4 (16:55→21:00)
[2022-08-11 20:16] VITALS: BP 90/60
[2022-08-11 20:44] LABS: CREATININE FOR GFR 6.44 MG/DL (0.70-1.30); GLOMERULAR FILTRATION RATE 9.2 (>49); POTASSIUM SERUM 3.5 MMOL/L (3.5-5.1)
[2022-08-11] MEDS: OXAZEPAM 15MG CAP PO SCH (21:00)
[2022-08-11 22:00] VITALS: BP 90/60
[2022-08-11 22:50] VITALS: BP 98/58
[2022-08-11 23:25] LABS: CREATININE,RANDOM URINE 125.3 MG/DL
[2022-08-11] MEDS ORDERED: KCL 10MEQ/100ML SWI (KRUN) 10 MEQ in IV 1 EA IV SCH (23:30)
[2022-08-11 23:59] VITALS: BP 84/54
[2022-08-12] VITALS (10 sets, daily range): BP systolic 87–106; BP diastolic 56–65
[2022-08-12] MEDS ORDERED: NS 500 ML IV ONE (00:50)
[2022-08-12 02:36] LABS: CALCIUM LEVEL 7.5 MG/DL (8.3-10.6); CREATININE FOR GFR 3.73 MG/DL (0.70-1.30); GLOMERULAR FILTRATION RATE 17.3 (>49); POTASSIUM SERUM 2.8 MMOL/L (3.5-5.1)
[2022-08-12] MEDS: KCL 10MEQ/100ML SWI (KRUN) 10 MEQ in IV 1 EA IV SCH ×4 (03:00→08:33)
[2022-08-12] MEDS: SODIUM BICARBONATE 150 MEQ in D5W 1,000 ML IV SCH (03:00)
[2022-08-12] MEDS: cefTRIAXone SOD 1 GM in D5W MINI-BAG PLUS 50 ML IV SCH (04:05)
[2022-08-12] MEDS: OXAZEPAM 15MG CAP PO SCH (05:58)
[2022-08-12] MEDS: DOCUSATE SODIUM 100MG CAPSULE PO SCH ×2 (07:37→20:50)
[2022-08-12] MEDS: TAMSULOSIN 0.4 MG CAP PO SCH (08:13)
[2022-08-12] MEDS: THIAMINE 100 MG TAB PO SCH ×2 (08:34→20:58)
[2022-08-12] MEDS: PARoxetine 10MG TABLET PO SCH (08:34)
[2022-08-12] MEDS: MULTIVITAMINS/MINERALS THERAP 1 TAB PO SCH (08:34)
[2022-08-12] MEDS: FOLIC ACID 1MG TAB PO SCH (08:35)
[2022-08-12] MEDS: levETIRAcetam 250MG TABLET (KEPPRA) PO SCH (08:35)
[2022-08-12 09:19] LABS: MAGNESIUM LEVEL 1.9 MG/DL (1.8-2.4)
[2022-08-12 09:21] LABS: ALBUMIN 2.5 G/DL (3.2-5.2); BILIRUBIN,TOTAL 0.9 MG/DL (0.3-1.2); CALCIUM LEVEL 7.9 MG/DL (8.3-10.6); CREATININE FOR GFR 2.44 MG/DL (0.70-1.30); GLOMERULAR FILTRATION RATE 28.2 (>49); POTASSIUM SERUM 3.5 MMOL/L (3.5-5.1); TOTAL PROTEIN 5.9 G/DL (5.7-8.2)
[2022-08-12 09:26] LABS: BASO % 0.3 % (0.0-1.0); EOS # 0.1 10^3/uL (0.0-0.5); EOS % 1.7 % (0.0-3.0); HEMATOCRIT 39.8 % (42.0-52.0); LYMPH % 17.6 % (24.0-44.0); MEAN CORPUSCULAR HEMOGLOBIN 31.9 pg (27.0-33.0); MEAN CORPUSCULAR HGB CONC 35.7 g/dl (32.0-36.5); MEAN CORPUSCULAR VOLUME 89.4 fl (80.0-96.0); MONO # 0.9 10^3/uL (0.0-0.8); NEUTROPHILS # 3.7 10^3/uL (1.5-8.5); NEUTROPHILS % 64.5 % (36.0-66.0); PLATELET COUNT, AUTOMATED 210 10^3/uL (150-450); RED BLOOD COUNT 4.45 10^6/uL (4.30-6.10); WHITE BLOOD COUNT 5.8 10^3/uL (4.0-10.0)
[2022-08-12 09:30] LABS: HEMOGLOBIN 14.2 g/dl (13.5-17.5)
[2022-08-12] MEDS: KCL 20MEQ in NS 1000ML 1,000 ML IV SCH ×2 (10:36→20:59)
[2022-08-12 14:54] LABS: CALCIUM LEVEL 8.4 MG/DL (8.3-10.6); CREATININE FOR GFR 1.89 MG/DL (0.70-1.30); GLOMERULAR FILTRATION RATE 37.8 (>49); POTASSIUM SERUM 3.6 MMOL/L (3.5-5.1)
[2022-08-12] MEDS: MIDODRINE 2.5 MG TAB PO SCH (16:00)
[2022-08-12 20:52] LABS: CALCIUM LEVEL 8.1 MG/DL (8.3-10.6); CREATININE FOR GFR 1.41 MG/DL (0.70-1.30); GLOMERULAR FILTRATION RATE 53.1 (>49); POTASSIUM SERUM 3.8 MMOL/L (3.5-5.1)
[2022-08-12] MEDS ORDERED: OXAZEPAM 15MG CAP PO SCH (21:00)
[2022-08-13] VITALS (8 sets, daily range): BP systolic 94–123; BP diastolic 64–79
[2022-08-13 02:22] LABS: BLOOD UREA NITROGEN 50 MG/DL (9-23); CARBON DIOXIDE LEVEL 25 MMOL/L (20-31); CHLORIDE LEVEL 105 MMOL/L (98-107); CREATININE FOR GFR 1.04 MG/DL (0.70-1.30); GLOMERULAR FILTRATION RATE > 60.0 (>49); GLUCOSE, FASTING 104 MG/DL (74-106); POTASSIUM SERUM 3.7 MMOL/L (3.5-5.1); SODIUM LEVEL 137 MMOL/L (136-145)
[2022-08-13] MEDS: cefTRIAXone SOD 1 GM in D5W MINI-BAG PLUS 50 ML IV SCH (05:09)
[2022-08-13] MEDS: KCL 20MEQ in NS 1000ML 1,000 ML IV SCH (05:10)
[2022-08-13] MEDS: DOCUSATE SODIUM 100MG CAPSULE PO SCH ×2 (08:06→20:58)
[2022-08-13 08:07] LABS: BASO % 0.6 % (0.0-1.0); EOS # 0.2 10^3/uL (0.0-0.5); EOS % 3.1 % (0.0-3.0); HEMATOCRIT 41.7 % (42.0-52.0); HEMOGLOBIN 14.3 g/dl (13.5-17.5); LYMPH # 1.3 10^3/uL (1.5-5.0); LYMPH % 27.3 % (24.0-44.0); MEAN CORPUSCULAR HGB CONC 34.3 g/dl (32.0-36.5); MEAN CORPUSCULAR VOLUME 93.3 fl (80.0-96.0); MONO # 0.6 10^3/uL (0.0-0.8); MONO % 11.7 % (2.0-8.0); NEUTROPHILS # 2.7 10^3/uL (1.5-8.5); NEUTROPHILS % 55.7 % (36.0-66.0); PLATELET COUNT, AUTOMATED 205 10^3/uL (150-450); RED BLOOD COUNT 4.47 10^6/uL (4.30-6.10); WHITE BLOOD COUNT 4.9 10^3/uL (4.0-10.0)
[2022-08-13] MEDS: THIAMINE 100 MG TAB PO SCH ×2 (08:07→20:59)
[2022-08-13] MEDS: PARoxetine 10MG TABLET PO SCH (08:07)
[2022-08-13] MEDS: levETIRAcetam 250MG TABLET (KEPPRA) PO SCH (08:07)
[2022-08-13] MEDS: FOLIC ACID 1MG TAB PO SCH (08:07)
[2022-08-13] MEDS: OSELTAMIVIR PHOSPHATE 30MG CAPSULE PO SCH (08:07)
[2022-08-13] MEDS: TAMSULOSIN 0.4 MG CAP PO SCH (08:07)
[2022-08-13] MEDS: MIDODRINE 2.5 MG TAB PO SCH ×2 (08:08→16:00)
[2022-08-13] MEDS: MULTIVITAMINS/MINERALS THERAP 1 TAB PO SCH (08:08)
[2022-08-13 08:31] LABS: MAGNESIUM LEVEL 1.5 MG/DL (1.8-2.4)
[2022-08-13 08:38] LABS: ALBUMIN 2.5 G/DL (3.2-5.2); ALKALINE PHOSPHATASE 92 U/L (46-116); ALT/SGPT 51 U/L (7.0-40); AST/SGOT 56 U/L (<34); BILIRUBIN,TOTAL 0.6 MG/DL (0.3-1.2); BLOOD UREA NITROGEN 47 MG/DL (9-23); CALCIUM LEVEL 8.3 MG/DL (8.3-10.6); CARBON DIOXIDE LEVEL 25 MMOL/L (20-31); CHLORIDE LEVEL 106 MMOL/L (98-107); CREATININE FOR GFR 0.94 MG/DL (0.70-1.30); GLOMERULAR FILTRATION RATE > 60.0 (>49); GLUCOSE, FASTING 126 MG/DL (74-106); POTASSIUM SERUM 4.1 MMOL/L (3.5-5.1); SODIUM LEVEL 139 MMOL/L (136-145); TOTAL PROTEIN 6.3 G/DL (5.7-8.2)
[2022-08-13] MEDS ORDERED: MAGNESIUM OXIDE 400MG TAB (MAG-OX) PO ONE (10:30)
[2022-08-13] MEDS: OSELTAMIVIR PHOSPHATE 75 MG CAP (TAMIFLU) PO SCH (20:58)
[2022-08-14] VITALS: BP 126/82
[2022-08-14 04:00] VITALS: BP 128/86
[2022-08-14 06:48] LABS: BASO % 0.8 % (0.0-1.0); EOS # 0.2 10^3/uL (0.0-0.5); EOS % 4.4 % (0.0-3.0); HEMATOCRIT 40.6 % (42.0-52.0); HEMOGLOBIN 13.8 g/dl (13.5-17.5); LYMPH # 1.5 10^3/uL (1.5-5.0); LYMPH % 29.2 % (24.0-44.0); MEAN CORPUSCULAR HEMOGLOBIN 32.1 pg (27.0-33.0); MEAN CORPUSCULAR VOLUME 94.4 fl (80.0-96.0); MONO # 0.7 10^3/uL (0.0-0.8); MONO % 12.7 % (2.0-8.0); NEUTROPHILS # 2.7 10^3/uL (1.5-8.5); NEUTROPHILS % 51.6 % (36.0-66.0); PLATELET COUNT, AUTOMATED 215 10^3/uL (150-450); WHITE BLOOD COUNT 5.3 10^3/uL (4.0-10.0)
[2022-08-14 07:08] LABS: MAGNESIUM LEVEL 1.2 MG/DL (1.8-2.4)
[2022-08-14 07:11] LABS: ALBUMIN 2.6 G/DL (3.2-5.2); ALKALINE PHOSPHATASE 88 U/L (46-116); ALT/SGPT 53 U/L (7.0-40); AST/SGOT 56 U/L (<34); BILIRUBIN,TOTAL 0.7 MG/DL (0.3-1.2); BLOOD UREA NITROGEN 22 MG/DL (9-23); CARBON DIOXIDE LEVEL 23 MMOL/L (20-31); CHLORIDE LEVEL 104 MMOL/L (98-107); CREATININE FOR GFR 0.79 MG/DL (0.70-1.30); GLOMERULAR FILTRATION RATE > 60.0 (>49); GLUCOSE, FASTING 96 MG/DL (74-106); POTASSIUM SERUM 4.2 MMOL/L (3.5-5.1); SODIUM LEVEL 136 MMOL/L (136-145)
[2022-08-14] MEDS ORDERED: MAGNESIUM OXIDE 400MG TAB (MAG-OX) PO ONE (07:35)
[2022-08-14 07:39] VITALS: BP 124/70
[2022-08-14] MEDS ORDERED: DOCUSATE SODIUM 100MG CAPSULE PO PRN (07:40)
[2022-08-14] MEDS: MIDODRINE 2.5 MG TAB PO SCH (08:00)
[2022-08-14] MEDS: FOLIC ACID 1MG TAB PO SCH (08:44)
[2022-08-14] MEDS: OSELTAMIVIR PHOSPHATE 75 MG CAP (TAMIFLU) PO SCH ×2 (08:44→21:49)
[2022-08-14] MEDS: PARoxetine 10MG TABLET PO SCH (08:45)
[2022-08-14] MEDS: levETIRAcetam 250MG TABLET (KEPPRA) PO SCH (08:45)
[2022-08-14] MEDS: MULTIVITAMINS/MINERALS THERAP 1 TAB PO SCH (08:46)
[2022-08-14] MEDS: TAMSULOSIN 0.4 MG CAP PO SCH (08:46)
[2022-08-14 12:50] VITALS: BP 112/74
[2022-08-14] MEDS: HEPARIN SOD (PORCINE) 5000UNITS/ML 1ML VIAL/SYRINGE SQ SCH ×2 (14:28→21:49)
[2022-08-14 20:00] VITALS: BP 140/82
[2022-08-14] MEDS: LOPERAMIDE 2 MG CAPLET PO PRN (21:49)
[2022-08-14 23:58] VITALS: BP 129/86
[2022-08-15 03:59] VITALS: BP 108/67
[2022-08-15 06:21] LABS: BASO % 0.6 % (0.0-1.0); EOS # 0.3 10^3/uL (0.0-0.5); EOS % 4.2 % (0.0-3.0); HEMATOCRIT 41.6 % (42.0-52.0); HEMOGLOBIN 14.4 g/dl (13.5-17.5); LYMPH # 2.1 10^3/uL (1.5-5.0); LYMPH % 32.3 % (24.0-44.0); MEAN CORPUSCULAR HEMOGLOBIN 32.4 pg (27.0-33.0); MEAN CORPUSCULAR HGB CONC 34.6 g/dl (32.0-36.5); MEAN CORPUSCULAR VOLUME 93.7 fl (80.0-96.0); MONO # 0.6 10^3/uL (0.0-0.8); MONO % 9.7 % (2.0-8.0); NEUTROPHILS # 3.3 10^3/uL (1.5-8.5); NEUTROPHILS % 51.6 % (36.0-66.0); PLATELET COUNT, AUTOMATED 237 10^3/uL (150-450); RED BLOOD COUNT 4.44 10^6/uL (4.30-6.10); WHITE BLOOD COUNT 6.4 10^3/uL (4.0-10.0)
[2022-08-15] MEDS: HEPARIN SOD (PORCINE) 5000UNITS/ML 1ML VIAL/SYRINGE SQ SCH ×3 (06:36→20:56)
[2022-08-15 06:53] LABS: MAGNESIUM LEVEL 1.1 MG/DL (1.8-2.4)
[2022-08-15 06:55] LABS: ALBUMIN 2.9 G/DL (3.2-5.2); ALKALINE PHOSPHATASE 98 U/L (46-116); ALT/SGPT 58 U/L (7.0-40); AST/SGOT 57 U/L (<34); BILIRUBIN,TOTAL 0.7 MG/DL (0.3-1.2); BLOOD UREA NITROGEN 13 MG/DL (9-23); CARBON DIOXIDE LEVEL 22 MMOL/L (20-31); CHLORIDE LEVEL 101 MMOL/L (98-107); CREATININE FOR GFR 0.81 MG/DL (0.70-1.30); GLOMERULAR FILTRATION RATE > 60.0 (>49); GLUCOSE, FASTING 88 MG/DL (74-106); POTASSIUM SERUM 4.4 MMOL/L (3.5-5.1); SODIUM LEVEL 134 MMOL/L (136-145); TOTAL PROTEIN 6.3 G/DL (5.7-8.2)
[2022-08-15] MEDS ORDERED: MAG SULF 1GM/100ML (MAG RUN) 1 GM in IV 1 EA IV ONE (08:00)
[2022-08-15 08:12] VITALS: BP 112/68
[2022-08-15] MEDS: TAMSULOSIN 0.4 MG CAP PO SCH (09:23)
[2022-08-15] MEDS: PARoxetine 10MG TABLET PO SCH (09:23)
[2022-08-15] MEDS: FOLIC ACID 1MG TAB PO SCH (09:23)
[2022-08-15] MEDS: LOPERAMIDE 2 MG CAPLET PO PRN (09:23)
[2022-08-15] MEDS: levETIRAcetam 250MG TABLET (KEPPRA) PO SCH (09:24)
[2022-08-15] MEDS: MAGNESIUM OXIDE 400MG TAB (MAG-OX) PO SCH (09:24)
[2022-08-15] MEDS: MULTIVITAMINS/MINERALS THERAP 1 TAB PO SCH (09:24)
[2022-08-15] MEDS: OSELTAMIVIR PHOSPHATE 75 MG CAP (TAMIFLU) PO SCH (09:24)
[2022-08-15 12:52] VITALS: BP 102/78
[2022-08-15 19:55] VITALS: BP 108/72
[2022-08-16 05:06] LABS: BASO % 0.6 % (0.0-1.0); EOS # 0.3 10^3/uL (0.0-0.5); EOS % 3.8 % (0.0-3.0); HEMATOCRIT 41.4 % (42.0-52.0); HEMOGLOBIN 14.1 g/dl (13.5-17.5); LYMPH % 27.8 % (24.0-44.0); MEAN CORPUSCULAR HGB CONC 34.1 g/dl (32.0-36.5); MEAN CORPUSCULAR VOLUME 93.9 fl (80.0-96.0); MONO # 0.6 10^3/uL (0.0-0.8); NEUTROPHILS # 4.1 10^3/uL (1.5-8.5); NEUTROPHILS % 57.7 % (36.0-66.0); PLATELET COUNT, AUTOMATED 234 10^3/uL (150-450); RED BLOOD COUNT 4.41 10^6/uL (4.30-6.10); WHITE BLOOD COUNT 7.1 10^3/uL (4.0-10.0)
[2022-08-16 05:36] LABS: MAGNESIUM LEVEL 1.2 MG/DL (1.8-2.4)
[2022-08-16 05:38] LABS: ALBUMIN 2.9 G/DL (3.2-5.2); ALKALINE PHOSPHATASE 106 U/L (46-116); ALT/SGPT 60 U/L (7.0-40); AST/SGOT 56 U/L (<34); BILIRUBIN,TOTAL 0.7 MG/DL (0.3-1.2); BLOOD UREA NITROGEN 12 MG/DL (9-23); CALCIUM LEVEL 8.1 MG/DL (8.3-10.6); CARBON DIOXIDE LEVEL 23 MMOL/L (20-31); CHLORIDE LEVEL 101 MMOL/L (98-107); CREATININE FOR GFR 0.78 MG/DL (0.70-1.30); GLOMERULAR FILTRATION RATE > 60.0 (>49); GLUCOSE, FASTING 89 MG/DL (74-106); POTASSIUM SERUM 4.7 MMOL/L (3.5-5.1); SODIUM LEVEL 132 MMOL/L (136-145); TOTAL PROTEIN 6.5 G/DL (5.7-8.2)
[2022-08-16] MEDS: HEPARIN SOD (PORCINE) 5000UNITS/ML 1ML VIAL/SYRINGE SQ SCH ×2 (06:17→14:00)
[2022-08-16] MEDS ORDERED: MAG SULF 1GM/100ML (MAG RUN) 1 GM in IV 1 EA IV SCH (07:00)
[2022-08-16 07:53] VITALS: BP 102/67
[2022-08-16 08:00] VITALS: BP 102/67
[2022-08-16] MEDS ORDERED: MAGNESIUM OXIDE 400MG TAB (MAG-OX) PO ONE (08:00)
[2022-08-16] MEDS: MULTIVITAMINS/MINERALS THERAP 1 TAB PO SCH (10:15)
[2022-08-16] MEDS: levETIRAcetam 250MG TABLET (KEPPRA) PO SCH (10:16)
[2022-08-16] MEDS: PARoxetine 10MG TABLET PO SCH (10:16)
[2022-08-16] MEDS: TAMSULOSIN 0.4 MG CAP PO SCH (10:16)
[2022-08-16] MEDS: FOLIC ACID 1MG TAB PO SCH (10:16)
[2022-08-16] MEDS: MAGNESIUM OXIDE 400MG TAB (MAG-OX) PO SCH (10:16)
[2022-08-16] MEDS ORDERED: MAGN400T2 PO (15:00)
[2022-08-17] MEDS ORDERED: MAGNESIUM OXIDE 400MG TAB (MAG-OX) PO SCH (09:00)
== END 2022-08-16 15:43 | disposition home or self-care (01) | DRG 682 ==
LOC: EDBD 21:58 → M ED 21:58 → M ED INP 08-11 03:28 → ENRESERV 08-11 15:51 → M PCU 08-11 17:59
PROVIDERS: ADMIT Family Medicine; ATTEND Family Medicine
DX: N17.9 Acute kidney failure, unspecified (principal); G93.41 Metabolic encephalopathy; E87.20 Acidosis, unspecified; N39.0 Urinary tract infection, site not specified; E87.1 Hypo-osmolality and hyponatremia; E87.21 Acute metabolic acidosis; G40.909 Epilepsy, unspecified, not intractable, without status epilepticus; J10.1 Influenza due to other identified influenza virus with other respiratory manifestations; R31.0 Gross hematuria; F10.20 Alcohol dependence, uncomplicated; N40.0 Benign prostatic hyperplasia without lower urinary tract symptoms; E87.6 Hypokalemia; I10 Essential (primary) hypertension; R19.7 Diarrhea, unspecified; F03.90 Unspecified dementia, unspecified severity, without behavioral disturbance, psychotic disturbance, mood disturbance, and anxiety; Z79.899 Other long term (current) drug therapy; E83.51 Hypocalcemia

== ENCOUNTER → 2022-08-27 | Outpatient (REF) | payer MEDICARE, MEDICAID ==
[~2022-08-27] MED LIST changes: +FOLI1TAB11; +LISI40TA4 PO; +MAGN400T2 PO
[2022-08-27 14:22] LABS: APPEARANCE, URINE MANUAL CLEAR (CLEAR); BILIRUBIN, URINE MANUAL NEGATIVE (NEGATIVE); BLOOD URINE MANUAL NEGATIVE (NEGATIVE); COLOR, URINE MANUAL YELLOW (YELLOW); GLUCOSE, URINE (UA) MANUAL NEGATIVE (NEGATIVE); KETONE, URINE MANUAL NEGATIVE (NEGATIVE); LEUKOCYTE ESTERASE, URINE MAN NEGATIVE (NEGATIVE); NITRITE, URINE MANUAL NEGATIVE (NEGATIVE); PROTEIN, URINE MANUAL NEGATIVE (NEGATIVE); UROBILINOGEN, URINE MANUAL NORMAL (NORMAL)
== END ==
LOC: M SMT 13:03
PROVIDERS: ATTEND Urology
DX: R82.89 Other abnormal findings on cytological and histological examination of urine (principal); R97.20 Elevated prostate specific antigen [PSA]
CPT/HCPCS: 81002; 87086; 88108; G0416

== ENCOUNTER 2022-10-25 20:30 | Emergency (ER) | payer MEDICAID, MEDICARE ==
[~2022-10-25] VITALS: Ht 162.6 cm; Wt 77.0 kg
[2022-10-25] MEDS ORDERED: THIAMINE 100 MG TAB PO SCH (21:00)
[2022-10-25 21:01] LABS: VENOUS BASE EXCESS -8.5 (-2.0-2.0); VENOUS HCO3 15.7 MEQ/L (23.0-27.0); VENOUS O2 SATURATION 98.6 % (60.0-80.0); VENOUS PARTIAL PRESSURE CO2 29.8 mmHg (38.0-50.0); VENOUS PARTIAL PRESSURE O2 134.2 mmHg (30.0-50.0); VENOUS STANDARD HCO3 17.8 MEQ/L; VENOUS TOTAL CO2 16.6 MEQ/L (24.0-28.0)
[2022-10-25 21:03] LABS: BASO # 0.1 10^3/uL (0.0-0.2); EOS # 0.3 10^3/uL (0.0-0.5); EOS % 3.8 % (0.0-3.0); HEMATOCRIT 43.8 % (42.0-52.0); HEMOGLOBIN 14.9 g/dl (13.5-17.5); LYMPH # 2.1 10^3/uL (1.5-5.0); LYMPH % 26.9 % (24.0-44.0); MEAN CORPUSCULAR HEMOGLOBIN 33.7 pg (27.0-33.0); MEAN CORPUSCULAR VOLUME 99.1 fl (80.0-96.0); MONO # 0.5 10^3/uL (0.0-0.8); MONO % 6.1 % (2.0-8.0); NEUTROPHILS # 4.6 10^3/uL (1.5-8.5); NEUTROPHILS % 60.1 % (36.0-66.0); PLATELET COUNT, AUTOMATED 255 10^3/uL (150-450); RED BLOOD COUNT 4.42 10^6/uL (4.30-6.10); WHITE BLOOD COUNT 7.7 10^3/uL (4.0-10.0)
[2022-10-25] MEDS ORDERED: levETIRAcetam INJection 1,500 MG in D5W 100 ML IV ONE (21:10)
[2022-10-25] MEDS ORDERED: LORazepam 2 MG TAB PO PRN (21:10)
[2022-10-25] MEDS ORDERED: LORazepam 2 MG/ML 1ML VIAL IV PRN (21:10)
[2022-10-25 21:12] LABS: APPEARANCE, URINE CLEAR (CLEAR); BACTERIA, URINE AUTO NEGATIVE (NEGATIVE); BILIRUBIN, URINE AUTO NEGATIVE (NEGATIVE); BLOOD, URINE BLOOD 1+ (NEGATIVE); COLOR, URINE YELLOW (YELLOW); GLUCOSE, URINE (UA) AUTO NEGATIVE (NEGATIVE); KETONE, URINE AUTO TRACE mg/dL (NEGATIVE); LEUKOCYTE ESTERASE, URINE AUTO NEGATIVE (NEGATIVE); MUCUS, URINE SMALL (NEGATIVE); NITRITE, URINE AUTO NEGATIVE (NEGATIVE); PROTEIN, URINE AUTO 1+ mg/dL (NEGATIVE); RBC, URINE AUTO 0 /HPF (0-3); SPECIFIC GRAVITY URINE AUTO 1.013 (1.002-1.035); SQUAMOUS EPITHELIAL CELL UR AU 0 /HPF (0-6); UROBILINOGEN, URINE AUTO 0.2 mg/dL (0.0-2.0); WBC, URINE AUTO 1 /HPF (0-3)
[2022-10-25 21:31] LABS: ETHYL ALCOHOL (ETHANOL) 0.013 % (0.000-0.010)
[2022-10-25 21:34] LABS: AMPHETAMINES LEVEL URINE NEGATIVE (NEGATIVE); BARBITURATES URINE NEGATIVE (NEGATIVE); BENZODIAZEPINES URINE NEGATIVE (NEGATIVE); CANNABINOIDS URINE NEGATIVE (NEGATIVE); COCAINE METABOLITE URINE NEGATIVE (NEGATIVE); METHADONE URINE NEGATIVE (NEGATIVE); OPIATES URINE NEGATIVE (NEGATIVE); PHENCYCLIDINE URINE NEGATIVE (NEGATIVE)
[2022-10-25] MEDS ORDERED: NS 2,310 ML in IV 1 EA IV ONE (21:35)
[2022-10-25 21:43] LABS: ALBUMIN 3.5 G/DL (3.2-5.2); ALKALINE PHOSPHATASE 127 U/L (46-116); ALT/SGPT 45 U/L (7.0-40); AST/SGOT 57 U/L (<34); BILIRUBIN,DIRECT 0.1 MG/DL (<0.4); BILIRUBIN,TOTAL 0.3 MG/DL (0.3-1.2); BLOOD UREA NITROGEN 6 MG/DL (9-23); CALCIUM LEVEL 8.7 MG/DL (8.3-10.6); CARBON DIOXIDE LEVEL 14 MMOL/L (20-31); CHLORIDE LEVEL 107 MMOL/L (98-107); CREATININE FOR GFR 0.76 MG/DL (0.70-1.30); GLOMERULAR FILTRATION RATE > 60.0 (>42); GLUCOSE, FASTING 105 MG/DL (74-106); MAGNESIUM LEVEL 1.7 MG/DL (1.8-2.4); PHOSPHORUS LEVEL 3.4 MG/DL (2.4-5.1); POTASSIUM SERUM 3.9 MMOL/L (3.5-5.1); SODIUM LEVEL 139 MMOL/L (136-145); TOTAL PROTEIN 7.1 G/DL (5.7-8.2)
[2022-10-25 21:49] LABS: RSV AMPLIFICATION NEGATIVE (NEGATIVE)
[2022-10-25] MEDS ORDERED: ACETAMINOPHEN TAB 650MG DOSE (2X325MG) PO ONE (23:05)
[2022-10-25 23:06] LABS: VENOUS BASE EXCESS -2.9 (-2.0-2.0); VENOUS HCO3 22.1 MEQ/L (23.0-27.0); VENOUS O2 SATURATION 66.6 % (60.0-80.0); VENOUS PARTIAL PRESSURE CO2 39.5 mmHg (38.0-50.0); VENOUS PARTIAL PRESSURE O2 35.8 mmHg (30.0-50.0); VENOUS PH 7.366 UNITS (7.330-7.430); VENOUS STANDARD HCO3 21.3 MEQ/L; VENOUS TOTAL CO2 23.3 MEQ/L (24.0-28.0)
[2022-10-25 23:32] LABS: BLOOD UREA NITROGEN 6 MG/DL (9-23); CALCIUM LEVEL 8.1 MG/DL (8.3-10.6); CARBON DIOXIDE LEVEL 24 MMOL/L (20-31); CHLORIDE LEVEL 107 MMOL/L (98-107); GLOMERULAR FILTRATION RATE > 60.0 (>42); GLUCOSE, FASTING 102 MG/DL (74-106); POTASSIUM SERUM 4.1 MMOL/L (3.5-5.1); SODIUM LEVEL 138 MMOL/L (136-145)
[2022-10-26 00:05] VITALS: BP 177/100
[2022-10-26] MEDS ORDERED: MULTIVITAMINS/MINERALS THERAP 1 TAB PO SCH (09:00)
[2022-10-26] MEDS ORDERED: FOLIC ACID 1MG TAB PO SCH (09:00)
== END 2022-10-26 00:33 | disposition home or self-care (01) ==
LOC: EDBD 20:30 → M ED 20:30 → EDSEX 20:30 → M ED 10-26 00:33
DX: F10.231 Alcohol dependence with withdrawal delirium (principal); I10 Essential (primary) hypertension; E78.5 Hyperlipidemia, unspecified; F17.200 Nicotine dependence, unspecified, uncomplicated; Z79.01 Long term (current) use of anticoagulants; Z79.02 Long term (current) use of antithrombotics/antiplatelets; Z79.899 Other long term (current) drug therapy
CPT/HCPCS: 70450; 72125; 80048; 80076; 80180; 80307; 81001; 82077; 82140; 82330; 82803; 83605; 83735; 84100; 85025; 87631; 93041; 94760; 99285; J1953

== ENCOUNTER 2023-01-17 10:20 | Inpatient (IN) | payer MEDICARE ==
[~2023-01-17] VITALS: Ht 162.6 cm; Wt 86.5 kg
[2023-01-17] MEDS ORDERED: MIDAZOLAM INJ 2MG/2ML VIAL IV STA (10:34)
[2023-01-17] MEDS ORDERED: levETIRAcetam INJection 1,000 MG in D5W 100 ML IV ONE (10:45)
[2023-01-17] MEDS ORDERED: NS 1,000 ML IV ONE (11:05)
[2023-01-17 11:10] LABS: BASO # 0.1 10^3/uL (0.0-0.2); EOS # 0.3 10^3/uL (0.0-0.5); EOS % 3.1 % (0.0-3.0); HEMATOCRIT 50.8 % (42.0-52.0); HEMOGLOBIN 17.3 g/dl (13.5-17.5); LYMPH # 2.6 10^3/uL (1.5-5.0); LYMPH % 25.3 % (24.0-44.0); MEAN CORPUSCULAR HEMOGLOBIN 31.8 pg (27.0-33.0); MEAN CORPUSCULAR HGB CONC 34.1 g/dl (32.0-36.5); MEAN CORPUSCULAR VOLUME 93.4 fl (80.0-96.0); MONO # 0.9 10^3/uL (0.0-0.8); MONO % 8.4 % (2.0-8.0); NEUTROPHILS # 6.4 10^3/uL (1.5-8.5); NEUTROPHILS % 61.4 % (36.0-66.0); PLATELET COUNT, AUTOMATED 282 10^3/uL (150-450); RED BLOOD COUNT 5.44 10^6/uL (4.30-6.10); WHITE BLOOD COUNT 10.4 10^3/uL (4.0-10.0)
[2023-01-17 11:24] LABS: CK-MB VALUE MASS 4.2 NG/ML (<3.6); ETHYL ALCOHOL (ETHANOL) < 0.003 % (0.000-0.010)
[2023-01-17 11:26] LABS: ACETAMINOPHEN LEVEL < 2.0 UG/ML (10.0-20.0); ALBUMIN 4.4 G/DL (3.2-5.2); ALKALINE PHOSPHATASE 114 U/L (46-116); ALT/SGPT 63 U/L (7.0-40); AST/SGOT 65 U/L (<34); BILIRUBIN,DIRECT 0.4 MG/DL (<0.4); BILIRUBIN,TOTAL 0.9 MG/DL (0.3-1.2); BLOOD UREA NITROGEN 9 MG/DL (9-23); CALCIUM LEVEL 9.3 MG/DL (8.3-10.6); CARBON DIOXIDE LEVEL 14 MMOL/L (20-31); CHLORIDE LEVEL 93 MMOL/L (98-107); CREATININE FOR GFR 1.02 MG/DL (0.70-1.30); GLOMERULAR FILTRATION RATE > 60.0 (>42); GLUCOSE, FASTING 120 MG/DL (74-106); POTASSIUM SERUM 4.5 MMOL/L (3.5-5.1); SALICYLATE LEVEL < 3.0 MG/DL (<30); SODIUM LEVEL 126 MMOL/L (136-145); TOTAL PROTEIN 8.5 G/DL (5.7-8.2)
[2023-01-17 11:29] LABS: THYROID STIMULATING HORMONE 3.278 uIU/ML (0.55-4.78)
[2023-01-17 11:39] LABS: MAGNESIUM LEVEL 2.3 MG/DL (1.8-2.4)
[2023-01-17] MEDS ORDERED: PARO5TAB PO (11:39)
[2023-01-17] MEDS ORDERED: LISI40TA4 PO ×2 (11:39→23:35)
[2023-01-17 11:55] LABS: CPK CREATINE PHOSPHOKINASE 165 U/L (46-171); MB/CK RELATIVE INDEX 2.54 (< OR =4)
[2023-01-17] MEDS ORDERED: MED REC IN PROGRESS XX SCH (12:50)
[2023-01-17] MEDS ORDERED: LORazepam 2 MG TAB PO PRN (12:50)
[2023-01-17] MEDS ORDERED: ENOXAPARIN 40MG/0.4ML SYRINGE (J1650 PER 10MG) SC SCH (13:35)
[2023-01-17 13:52] LABS: INR 1.1; PROTHROMBIN TIME 14.4 SECONDS (12.5-14.5)
[2023-01-17 13:53] LABS: PARTIAL THROMBOPLASTIN TIME 26.1 SECONDS (24.8-34.2)
[2023-01-17] MEDS ORDERED: LACTULOSE 20GM/30ML SYRUP UDC PO SCH (14:00)
[2023-01-17] MEDS: FOLIC ACID 1MG TAB PO SCH (14:01)
[2023-01-17] MEDS: NS 1,000 ML IV SCH ×2 (14:01→21:21)
[2023-01-17] MEDS: MULTIVITAMINS/MINERALS THERAP 1 TAB PO SCH (14:01)
[2023-01-17] MEDS: THIAMINE 100 MG TAB PO SCH ×2 (14:01→21:21)
[2023-01-17 14:40] VITALS: BP 140/101; TEMP 97; O2SAT 98
[2023-01-17 15:43] VITALS: BP 140/86; TEMP 97.2; O2SAT 96
[2023-01-17 17:15] LABS: VENOUS BASE EXCESS -5.9 (-2.0-2.0); VENOUS HCO3 19.4 MMOL/L (23.0-27.0); VENOUS O2 SATURATION 88.1 % (60.0-80.0); VENOUS PARTIAL PRESSURE CO2 38.2 mmHg (38.0-50.0); VENOUS PARTIAL PRESSURE O2 58.5 mmHg (30.0-50.0); VENOUS PH 7.324 UNITS (7.330-7.430); VENOUS STANDARD HCO3 19.5 MMOL/L; VENOUS TOTAL CO2 20.6 MMOL/L (24.0-28.0)
[2023-01-17 20:50] VITALS: BP 120/65; TEMP 98.5; O2SAT 96
[2023-01-17] MEDS ORDERED: PARO10TA3 PO (23:35)
[2023-01-17] MEDS ORDERED: HOME MED LIST COMPLETE! XX SCH (23:40)
[2023-01-17] MEDS: levETIRAcetam INJection 750 MG in D5W 100 ML IV SCH (23:52)
[2023-01-18 00:45] VITALS: BP 105/69; TEMP 98; O2SAT 96
[2023-01-18 04:50] VITALS: BP 106/69; TEMP 97.6; O2SAT 96
[2023-01-18] MEDS: NS 1,000 ML IV SCH (05:04)
[2023-01-18 06:30] LABS: HEMATOCRIT 41.5 % (42.0-52.0); MEAN CORPUSCULAR HEMOGLOBIN 32.4 pg (27.0-33.0); MEAN CORPUSCULAR HGB CONC 35.7 g/dl (32.0-36.5); MEAN CORPUSCULAR VOLUME 90.8 fl (80.0-96.0); PLATELET COUNT, AUTOMATED 214 10^3/uL (150-450); RED BLOOD COUNT 4.57 10^6/uL (4.30-6.10); WHITE BLOOD COUNT 14.3 10^3/uL (4.0-10.0)
[2023-01-18 06:41] LABS: HEMOGLOBIN 14.8 g/dl (13.5-17.5)
[2023-01-18 07:03] LABS: ALBUMIN 3.3 G/DL (3.2-5.2); ALKALINE PHOSPHATASE 82 U/L (46-116); ALT/SGPT 34 U/L (7.0-40); AST/SGOT 31 U/L (<34); BILIRUBIN,TOTAL 1.1 MG/DL (0.3-1.2); BLOOD UREA NITROGEN 7 MG/DL (9-23); CALCIUM LEVEL 8.1 MG/DL (8.3-10.6); CARBON DIOXIDE LEVEL 19 MMOL/L (20-31); CHLORIDE LEVEL 100 MMOL/L (98-107); CREATININE FOR GFR 0.82 MG/DL (0.70-1.30); GLOMERULAR FILTRATION RATE > 60.0 (>42); GLUCOSE, FASTING 90 MG/DL (74-106); POTASSIUM SERUM 3.8 MMOL/L (3.5-5.1); SODIUM LEVEL 130 MMOL/L (136-145); TOTAL PROTEIN 6.3 G/DL (5.7-8.2)
[2023-01-18 08:00] VITALS: BP 125/68; TEMP 97.4; O2SAT 98
[2023-01-18] MEDS ORDERED: LACTULOSE 20GM/30ML SYRUP UDC PO SCH (09:00)
[2023-01-18] MEDS: FOLIC ACID 1MG TAB PO SCH (09:55)
[2023-01-18] MEDS: MULTIVITAMINS/MINERALS THERAP 1 TAB PO SCH (09:55)
[2023-01-18] MEDS: THIAMINE 100 MG TAB PO SCH (09:55)
[2023-01-18] MEDS: levETIRAcetam INJection 750 MG in D5W 100 ML IV SCH (10:39)
[2023-01-18 11:37] VITALS: BP 114/75; TEMP 97.4; O2SAT 97
[2023-01-18] MEDS ORDERED: FOLI1TAB11 PO (12:02)
[2023-01-18] MEDS ORDERED: VITMTA PO (12:02)
[2023-01-18] MEDS ORDERED: LISI40TA4 PO (12:02)
[2023-01-18] MEDS ORDERED: ELIQ5TAB PO (12:02)
[2023-01-18] MEDS ORDERED: THIA100TA PO (12:02)
[2023-01-18] MEDS ORDERED: LEVE750T5 PO (12:02)
== END 2023-01-18 15:15 | disposition home or self-care (01) | DRG 101 ==
LOC: M ED 10:20 → EDBD 10:20 → M ED INP 12:20 → ENRESERV 13:40 → M PCU 14:16
PROVIDERS: ADMIT Internal Medicine; ATTEND Family Medicine
DX: R56.9 Unspecified convulsions (principal); E87.20 Acidosis, unspecified; E72.20 Disorder of urea cycle metabolism, unspecified; E87.1 Hypo-osmolality and hyponatremia; I10 Essential (primary) hypertension; Z91.128 Patient's intentional underdosing of medication regimen for other reason; F10.10 Alcohol abuse, uncomplicated; Z86.718 Personal history of other venous thrombosis and embolism; Z79.899 Other long term (current) drug therapy; K76.0 Fatty (change of) liver, not elsewhere classified; K57.30 Diverticulosis of large intestine without perforation or abscess without bleeding; K80.20 Calculus of gallbladder without cholecystitis without obstruction; F03.90 Unspecified dementia, unspecified severity, without behavioral disturbance, psychotic disturbance, mood disturbance, and anxiety; N40.0 Benign prostatic hyperplasia without lower urinary tract symptoms; F10.96 Alcohol use, unspecified with alcohol-induced persisting amnestic disorder

== ENCOUNTER 2023-04-10 07:08 | Inpatient (IN) | payer MEDICARE ==
[~2023-04-10] VITALS: Ht 162.6 cm; Wt 84.9 kg
[~2023-04-10 07:08] MED LIST changes: +PARO10TA3 PO; +PARO5TAB PO
[2023-04-10] MEDS ORDERED: ELIQ5TAB PO (07:35)
[2023-04-10 07:42] LABS: BASO # 0.1 10^3/uL (0.0-0.2); BASO % 0.7 % (0.0-1.0); EOS # 0.5 10^3/uL (0.0-0.5); EOS % 3.7 % (0.0-3.0); HEMATOCRIT 49.1 % (42.0-52.0); HEMOGLOBIN 16.5 g/dl (13.5-17.5); IONIZED CALCIUM 4.7 MG/DL (4.5-5.3); LYMPH # 4.7 10^3/uL (1.5-5.0); LYMPH % 38.3 % (24.0-44.0); MEAN CORPUSCULAR HEMOGLOBIN 32.3 pg (27.0-33.0); MEAN CORPUSCULAR HGB CONC 33.6 g/dl (32.0-36.5); MEAN CORPUSCULAR VOLUME 96.1 fl (80.0-96.0); MONO # 0.8 10^3/uL (0.0-0.8); MONO % 6.3 % (2.0-8.0); NEUTROPHILS % 49.2 % (36.0-66.0); PLATELET COUNT, AUTOMATED 327 10^3/uL (150-450); RED BLOOD COUNT 5.11 10^6/uL (4.30-6.10); WHITE BLOOD COUNT 12.2 10^3/uL (4.0-10.0)
[2023-04-10 07:46] LABS: APPEARANCE, URINE CLEAR (CLEAR); BACTERIA, URINE AUTO 1+ (NEGATIVE); BILIRUBIN, URINE AUTO NEGATIVE (NEGATIVE); BLOOD, URINE BLOOD 1+ (NEGATIVE); COLOR, URINE STRAW (YELLOW); GLUCOSE, URINE (UA) AUTO NEGATIVE (NEGATIVE); KETONE, URINE AUTO TRACE mg/dL (NEGATIVE); LEUKOCYTE ESTERASE, URINE AUTO NEGATIVE (NEGATIVE); MUCUS, URINE SMALL (NEGATIVE); NITRITE, URINE AUTO NEGATIVE (NEGATIVE); PROTEIN, URINE AUTO 1+ mg/dL (NEGATIVE); RBC, URINE AUTO 1 /HPF (0-3); SQUAMOUS EPITHELIAL CELL UR AU 0 /HPF (0-6); UROBILINOGEN, URINE AUTO 0.2 mg/dL (0.0-2.0); WBC, URINE AUTO 3 /HPF (0-3)
[2023-04-10] MEDS ORDERED: NS 1,000 ML IV ONE (08:10)
[2023-04-10] MEDS ORDERED: levETIRAcetam INJection 1,500 MG in D5W 100 ML IV ONE (08:10)
[2023-04-10 08:15] LABS: ETHYL ALCOHOL (ETHANOL) 0.026 % (0.000-0.010)
[2023-04-10 08:17] LABS: ALBUMIN 3.7 G/DL (3.2-5.2); ALKALINE PHOSPHATASE 183 U/L (46-116); ALT/SGPT 30 U/L (7.0-40); AST/SGOT 28 U/L (<34); BILIRUBIN,DIRECT 0.1 MG/DL (<0.4); BILIRUBIN,TOTAL 0.3 MG/DL (0.3-1.2); BLOOD UREA NITROGEN 7 MG/DL (9-23); CALCIUM LEVEL 8.9 MG/DL (8.3-10.6); CARBON DIOXIDE LEVEL < 10.0 MMOL/L (20-31); CHLORIDE LEVEL 102 MMOL/L (98-107); CREATININE FOR GFR 0.83 MG/DL (0.70-1.30); GLOMERULAR FILTRATION RATE > 60.0 (>42); GLUCOSE, FASTING 136 MG/DL (74-106); MAGNESIUM LEVEL 1.9 MG/DL (1.8-2.4); PHOSPHORUS LEVEL 4.6 MG/DL (2.4-5.1); POTASSIUM SERUM 3.8 MMOL/L (3.5-5.1); SODIUM LEVEL 135 MMOL/L (136-145); TOTAL PROTEIN 7.8 G/DL (5.7-8.2)
[2023-04-10] MEDS ORDERED: NS 1,580 ML in IV 1 EA IV ONE (08:20)
[2023-04-10 08:27] LABS: RSV AMPLIFICATION NEGATIVE (NEGATIVE)
[2023-04-10] MEDS ORDERED: FOLIC ACID 1MG TAB PO SCH (09:00)
[2023-04-10] MEDS ORDERED: MULTIVITAMINS/MINERALS THERAP 1 TAB PO SCH (09:00)
[2023-04-10] MEDS ORDERED: MED REC IN PROGRESS XX SCH (09:15)
[2023-04-10] MEDS ORDERED: MED REC CURRENTLY UNOBTAINABLE XX SCH (09:25)
[2023-04-10 09:34] LABS: ABG BASE EXCESS -5.5 (-2.0-2.0); ABG HCO3 18.7 MMOL/L (22.0-26.0); ABG O2 SATURATION 95.7 % (95.0-99.0); ABG PARTIAL PRESSURE CO2 32.8 mmHg (35.0-45.0); ABG PARTIAL PRESSURE O2 82.7 mmHg (75.0-100.0); ABG STANDARD HCO3 19.9 MMOL/L. (22.0-26.0); ABG TOTAL CO2 19.7 MMOL/L (23.0-31.0); ABG pH (ARTERIAL) 7.373 UNITS (7.350-7.450)
[2023-04-10] MEDS ORDERED: LORazepam 2 MG TAB PO ONE (09:45)
[2023-04-10] MEDS ORDERED: LORazepam 2 MG TAB PO PRN (09:45)
[2023-04-10] MEDS ORDERED: MAGN400T35 PO (10:12)
[2023-04-10] MEDS ORDERED: FOLI1TAB11 PO (10:12)
[2023-04-10] MEDS: THIAMINE 100 MG TAB PO SCH ×2 (10:16→21:36)
[2023-04-10] MEDS ORDERED: HOME MED LIST COMPLETE! XX SCH (10:20)
[2023-04-10] MEDS ORDERED: LACTULOSE 20GM/30ML SYRUP UDC PO ONE (11:10)
[2023-04-10 11:21] LABS: BLOOD UREA NITROGEN 6 MG/DL (9-23); CALCIUM LEVEL 7.5 MG/DL (8.3-10.6); CARBON DIOXIDE LEVEL 20 MMOL/L (20-31); CHLORIDE LEVEL 107 MMOL/L (98-107); CREATININE FOR GFR 0.69 MG/DL (0.70-1.30); GLOMERULAR FILTRATION RATE > 60.0 (>42); GLUCOSE, FASTING 101 MG/DL (74-106); POTASSIUM SERUM 4.2 MMOL/L (3.5-5.1); SODIUM LEVEL 136 MMOL/L (136-145)
[2023-04-10 15:05] VITALS: BP 140/76; TEMP 99; O2SAT 93
[2023-04-10 16:00] VITALS: BP 134/72; TEMP 98.6; O2SAT 95
[2023-04-10] MEDS: chlordiazePOXIDE 25 MG CAP PO SCH ×2 (16:36→21:36)
[2023-04-10 20:00] VITALS: BP 135/82; TEMP 98.7; O2SAT 96
[2023-04-10] MEDS: levETIRAcetam 250MG TABLET (KEPPRA) PO SCH (21:36)
[2023-04-10] MEDS: APIXABAN 5 MG TAB (ELIQUIS) PO SCH (21:36)
[2023-04-11] VITALS (8 sets, daily range): BP systolic 118–153; BP diastolic 79–97; TEMP 97.4–98.3; O2SAT 95–97
[2023-04-11 05:08] LABS: HEMATOCRIT 41.1 % (42.0-52.0); MEAN CORPUSCULAR HEMOGLOBIN 31.9 pg (27.0-33.0); MEAN CORPUSCULAR HGB CONC 34.5 g/dl (32.0-36.5); MEAN CORPUSCULAR VOLUME 92.4 fl (80.0-96.0); PLATELET COUNT, AUTOMATED 240 10^3/uL (150-450); RED BLOOD COUNT 4.45 10^6/uL (4.30-6.10); WHITE BLOOD COUNT 11.7 10^3/uL (4.0-10.0)
[2023-04-11 05:17] LABS: HEMOGLOBIN 14.2 g/dl (13.5-17.5)
[2023-04-11 05:31] LABS: ALBUMIN 2.8 G/DL (3.2-5.2); ALKALINE PHOSPHATASE 96 U/L (46-116); ALT/SGPT 20 U/L (7.0-40); AST/SGOT 16 U/L (<34); BILIRUBIN,TOTAL 0.8 MG/DL (0.3-1.2); BLOOD UREA NITROGEN 8 MG/DL (9-23); CALCIUM LEVEL 8.6 MG/DL (8.3-10.6); CARBON DIOXIDE LEVEL 22 MMOL/L (20-31); CHLORIDE LEVEL 105 MMOL/L (98-107); CREATININE FOR GFR 0.81 MG/DL (0.70-1.30); GLOMERULAR FILTRATION RATE > 60.0 (>42); GLUCOSE, FASTING 100 MG/DL (74-106); MAGNESIUM LEVEL 1.5 MG/DL (1.8-2.4); SODIUM LEVEL 135 MMOL/L (136-145)
[2023-04-11 08:05] LABS: VITAMIN B12 LEVEL 194 PG/ML (211-911)
[2023-04-11] MEDS ORDERED: ENOXAPARIN 40MG/0.4ML SYRINGE (J1650 PER 10MG) SC SCH (09:00)
[2023-04-11] MEDS: levETIRAcetam 250MG TABLET (KEPPRA) PO SCH ×2 (10:04→20:19)
[2023-04-11] MEDS: APIXABAN 5 MG TAB (ELIQUIS) PO SCH ×2 (10:04→20:20)
[2023-04-11] MEDS: PARoxetine 10MG TABLET PO SCH (10:04)
[2023-04-11] MEDS: MAGNESIUM OXIDE 400MG TAB (MAG-OX) PO SCH (10:05)
[2023-04-11] MEDS: lisinopriL 40MG TAB PO SCH (10:05)
[2023-04-11] MEDS: PANTOPRAZOLE 40MG TAB (PROTONIX) PO SCH (10:05)
[2023-04-11] MEDS: MAG SULF 1GM/100ML (MAG RUN) 1 GM in IV 1 EA IV SCH ×2 (10:09→11:53)
[2023-04-11] MEDS: chlordiazePOXIDE 25 MG CAP PO SCH ×3 (10:09→20:20)
[2023-04-11] MEDS: MULTIVITAMINS/MINERALS THERAP 1 TAB PO SCH (10:57)
[2023-04-11] MEDS: FOLIC ACID 1MG TAB PO SCH (10:57)
[2023-04-11] MEDS: THIAMINE 100 MG TAB PO SCH ×2 (10:57→20:20)
[2023-04-11] MEDS: CYANOCOBALAMIN 500 MCG TAB PO SCH (10:59)
[2023-04-12 00:29] VITALS: BP 143/89; TEMP 98.1; O2SAT 96
[2023-04-12 04:18] VITALS: BP 164/94; TEMP 98; O2SAT 97
[2023-04-12 05:18] VITALS: BP 132/84
[2023-04-12 06:40] LABS: HEMATOCRIT 41.8 % (42.0-52.0); HEMOGLOBIN 14.5 g/dl (13.5-17.5); MEAN CORPUSCULAR HEMOGLOBIN 32.2 pg (27.0-33.0); MEAN CORPUSCULAR HGB CONC 34.7 g/dl (32.0-36.5); MEAN CORPUSCULAR VOLUME 92.7 fl (80.0-96.0); PLATELET COUNT, AUTOMATED 218 10^3/uL (150-450); RED BLOOD COUNT 4.51 10^6/uL (4.30-6.10); WHITE BLOOD COUNT 9.2 10^3/uL (4.0-10.0)
[2023-04-12 07:05] LABS: BLOOD UREA NITROGEN 7 MG/DL (9-23); CALCIUM LEVEL 8.4 MG/DL (8.3-10.6); CARBON DIOXIDE LEVEL 22 MMOL/L (20-31); CHLORIDE LEVEL 104 MMOL/L (98-107); CREATININE FOR GFR 0.82 MG/DL (0.70-1.30); GLOMERULAR FILTRATION RATE > 60.0 (>42); GLUCOSE, FASTING 101 MG/DL (74-106); MAGNESIUM LEVEL 1.6 MG/DL (1.8-2.4); POTASSIUM SERUM 4.1 MMOL/L (3.5-5.1); SODIUM LEVEL 137 MMOL/L (136-145)
[2023-04-12 07:49] VITALS: BP 122/77; TEMP 97.8; O2SAT 94
[2023-04-12] MEDS: lisinopriL 40MG TAB PO SCH (08:33)
[2023-04-12] MEDS: MAGNESIUM OXIDE 400MG TAB (MAG-OX) PO SCH (08:33)
[2023-04-12] MEDS: MAG SULF 1GM/100ML (MAG RUN) 1 GM in IV 1 EA IV SCH ×2 (08:33→10:10)
[2023-04-12] MEDS: THIAMINE 100 MG TAB PO SCH (08:34)
[2023-04-12] MEDS: CYANOCOBALAMIN 500 MCG TAB PO SCH (08:34)
[2023-04-12] MEDS: levETIRAcetam 250MG TABLET (KEPPRA) PO SCH (08:34)
[2023-04-12] MEDS: FOLIC ACID 1MG TAB PO SCH (08:34)
[2023-04-12] MEDS: MULTIVITAMINS/MINERALS THERAP 1 TAB PO SCH (08:34)
[2023-04-12] MEDS: PANTOPRAZOLE 40MG TAB (PROTONIX) PO SCH (08:35)
[2023-04-12] MEDS: PARoxetine 10MG TABLET PO SCH (08:35)
[2023-04-12] MEDS: APIXABAN 5 MG TAB (ELIQUIS) PO SCH (08:35)
[2023-04-12] MEDS: chlordiazePOXIDE 25 MG CAP PO SCH (08:41)
[2023-04-12] MEDS ORDERED: THIA100TA PO (09:46)
[2023-04-12] MEDS ORDERED: MAGN500T12 PO (09:46)
[2023-04-12] MEDS ORDERED: VITA500T40 PO (09:46)
[2023-04-12] MEDS ORDERED: PANT40TA29 PO (09:46)
[2023-04-12] MEDS ORDERED: LEVE750T5 PO (10:18)
[2023-04-12 12:16] VITALS: BP 113/78; TEMP 97.4; O2SAT 96
== END 2023-04-12 15:03 | disposition home or self-care (01) | DRG 100 ==
LOC: M ED 07:08 → EDBD 07:08 → M ED INP 10:01 → ENRESERV 13:07 → M PCU 15:02
PROVIDERS: ADMIT Internal Medicine; ATTEND Internal Medicine
DX: G40.909 Epilepsy, unspecified, not intractable, without status epilepticus (principal); G93.41 Metabolic encephalopathy; E87.20 Acidosis, unspecified; E72.20 Disorder of urea cycle metabolism, unspecified; F10.288 Alcohol dependence with other alcohol-induced disorder; F39 Unspecified mood [affective] disorder; I10 Essential (primary) hypertension; E56.9 Vitamin deficiency, unspecified; F03.90 Unspecified dementia, unspecified severity, without behavioral disturbance, psychotic disturbance, mood disturbance, and anxiety; Z79.01 Long term (current) use of anticoagulants; Z79.899 Other long term (current) drug therapy; Z91.128 Patient's intentional underdosing of medication regimen for other reason

== ENCOUNTER → 2023-04-15 | Outpatient (REF) | payer MEDICARE ==
[~2023-04-15] MED LIST changes: +MAGN400T35 PO; +MAGN500T12 PO; +PANT40TA29 PO; +VITA500T40 PO
== END ==
LOC: M WUC 11:37
PROVIDERS: ATTEND Internal Medicine
DX: E83.42 Hypomagnesemia (principal)

== ENCOUNTER → 2023-04-18 | Outpatient (REF) | payer MEDICARE | LOC: M LAB REF 17:47 | PROVIDERS: ATTEND Family Medicine Addiction Medicine | DX: E83.42 Hypomagnesemia (principal) ==

== ENCOUNTER → 2023-05-27 | Outpatient (CLI) | payer MEDICARE, MEDICAID ==
[2023-05-27 13:08] LABS: BASO # 0.1 10^3/uL (0.0-0.2); BASO % 0.8 % (0.0-1.0); EOS # 0.4 10^3/uL (0.0-0.5); EOS % 3.4 % (0.0-3.0); HEMOGLOBIN 16.3 g/dl (13.5-17.5); LYMPH # 3.2 10^3/uL (1.5-5.0); LYMPH % 30.2 % (24.0-44.0); MEAN CORPUSCULAR HEMOGLOBIN 32.5 pg (27.0-33.0); MEAN CORPUSCULAR HGB CONC 34.7 g/dl (32.0-36.5); MEAN CORPUSCULAR VOLUME 93.6 fl (80.0-96.0); MONO % 9.5 % (2.0-8.0); NEUTROPHILS # 5.9 10^3/uL (1.5-8.5); NEUTROPHILS % 55.6 % (36.0-66.0); PLATELET COUNT, AUTOMATED 284 10^3/uL (150-450); RED BLOOD COUNT 5.02 10^6/uL (4.30-6.10); WHITE BLOOD COUNT 10.6 10^3/uL (4.0-10.0)
[2023-05-27 13:25] LABS: ALBUMIN 3.6 G/DL (3.2-5.2); ALKALINE PHOSPHATASE 150 U/L (46-116); ALT/SGPT 23 U/L (7.0-40); AST/SGOT 18 U/L (<34); BILIRUBIN,TOTAL 0.4 MG/DL (0.3-1.2); BLOOD UREA NITROGEN 10 MG/DL (9-23); CALCIUM LEVEL 9.1 MG/DL (8.3-10.6); CARBON DIOXIDE LEVEL 29 MMOL/L (20-31); CHLORIDE LEVEL 100 MMOL/L (98-107); CREATININE FOR GFR 0.95 MG/DL (0.70-1.30); GLOMERULAR FILTRATION RATE > 60.0 (>42); GLUCOSE, FASTING 93 MG/DL (74-106); POTASSIUM SERUM 3.9 MMOL/L (3.5-5.1); SODIUM LEVEL 135 MMOL/L (136-145); TOTAL PROTEIN 7.1 G/DL (5.7-8.2)
== END ==
LOC: M WUC 10:06
PROVIDERS: ATTEND Psychiatry & Neurology Neurology
DX: R56.9 Unspecified convulsions (principal)

== ENCOUNTER → 2023-06-01 | Outpatient (REF) | payer MEDICARE, MEDICAID | LOC: M LAB REF 12:29 | PROVIDERS: ATTEND Family Medicine Addiction Medicine | DX: E83.42 Hypomagnesemia (principal); G40.909 Epilepsy, unspecified, not intractable, without status epilepticus ==

== ENCOUNTER 2023-10-05 20:07 | Inpatient (IN) | payer MEDICARE, MEDICAID ==
[~2023-10-05] VITALS: Ht 177.8 cm; Wt 84.1 kg
[2023-10-05 20:37] LABS: VENOUS BASE EXCESS -1.5 (-2.0-2.0); VENOUS HCO3 21.9 MMOL/L (23.0-27.0); VENOUS O2 SATURATION 54.9 % (60.0-80.0); VENOUS PARTIAL PRESSURE CO2 33.8 mmHg (38.0-50.0); VENOUS PARTIAL PRESSURE O2 27.1 mmHg (30.0-50.0); VENOUS STANDARD HCO3 22.1 MMOL/L
[2023-10-05 20:45] LABS: BASO # 0.1 10^3/uL (0.0-0.2); BASO % 0.5 % (0.0-1.0); EOS # 0.1 10^3/uL (0.0-0.5); HEMATOCRIT 44.4 % (42.0-52.0); HEMOGLOBIN 15.8 g/dl (13.5-17.5); LYMPH # 2.2 10^3/uL (1.5-5.0); LYMPH % 19.6 % (24.0-44.0); MEAN CORPUSCULAR HEMOGLOBIN 31.3 pg (27.0-33.0); MEAN CORPUSCULAR HGB CONC 35.6 g/dl (32.0-36.5); MEAN CORPUSCULAR VOLUME 88.1 fl (80.0-96.0); MONO # 0.8 10^3/uL (0.0-0.8); MONO % 7.3 % (2.0-8.0); NEUTROPHILS # 7.9 10^3/uL (1.5-8.5); NEUTROPHILS % 70.9 % (36.0-66.0); PLATELET COUNT, AUTOMATED 404 10^3/uL (150-450); RED BLOOD COUNT 5.04 10^6/uL (4.30-6.10); WHITE BLOOD COUNT 11.2 10^3/uL (4.0-10.0)
[2023-10-05] MEDS: NS 1,000 ML IV ONE (21:00)
[2023-10-05 21:06] LABS: AMPHETAMINES LEVEL URINE NEGATIVE (NEGATIVE)
[2023-10-05 21:07] LABS: BARBITURATES URINE NEGATIVE (NEGATIVE); BENZODIAZEPINES URINE NEGATIVE (NEGATIVE); CANNABINOIDS URINE NEGATIVE (NEGATIVE); COCAINE METABOLITE URINE NEGATIVE (NEGATIVE); METHADONE URINE NEGATIVE (NEGATIVE); OPIATES URINE NEGATIVE (NEGATIVE); PHENCYCLIDINE URINE NEGATIVE (NEGATIVE)
[2023-10-05 21:09] LABS: ETHYL ALCOHOL (ETHANOL) < 0.003 % (0.000-0.010)
[2023-10-05 21:10] LABS: CPK CREATINE PHOSPHOKINASE 700 U/L (46-171); MB/CK RELATIVE INDEX 0.42 (< OR =4)
[2023-10-05 21:11] LABS: ALBUMIN 3.9 G/DL (3.2-5.2); ALKALINE PHOSPHATASE 181 U/L (46-116); ALT/SGPT 42 U/L (7.0-40); AST/SGOT 51 U/L (<34); BILIRUBIN,DIRECT 0.2 MG/DL (<0.4); BILIRUBIN,TOTAL 0.5 MG/DL (0.3-1.2); BLOOD UREA NITROGEN 9 MG/DL (9-23); CARBON DIOXIDE LEVEL 26 MMOL/L (20-31); CHLORIDE LEVEL 98 MMOL/L (98-107); CREATININE FOR GFR 0.67 MG/DL (0.70-1.30); GLOMERULAR FILTRATION RATE > 60.0 (>42); GLUCOSE, FASTING 100 MG/DL (74-106); POTASSIUM SERUM 3.7 MMOL/L (3.5-5.1); SALICYLATE LEVEL < 3.0 MG/DL (<30); SODIUM LEVEL 133 MMOL/L (136-145); TOTAL PROTEIN 7.7 G/DL (5.7-8.2)
[2023-10-05 21:12] LABS: THYROID STIMULATING HORMONE 2.239 uIU/ML (0.55-4.78)
[2023-10-05] MEDS: cefTRIAXone SOD 1 GM in D5W MINI-BAG PLUS 50 ML IV ONE (23:26)
[2023-10-05] MEDS ORDERED: ACETAMINOPHEN TAB 650MG DOSE (2X325MG) PO PRN (23:40)
[2023-10-05] MEDS ORDERED: MOM 30ML SUSPENSION UDC PO PRN (23:40)
[2023-10-05 23:54] LABS: RSV AMPLIFICATION NEGATIVE (NEGATIVE)
[2023-10-06] MEDS: NS 1,000 ML IV SCH (00:30)
[2023-10-06 06:04] LABS: BASO # 0.1 10^3/uL (0.0-0.2); BASO % 0.5 % (0.0-1.0); EOS # 0.2 10^3/uL (0.0-0.5); EOS % 1.6 % (0.0-3.0); HEMATOCRIT 41.1 % (42.0-52.0); HEMOGLOBIN 14.7 g/dl (13.5-17.5); LYMPH # 2.1 10^3/uL (1.5-5.0); LYMPH % 18.9 % (24.0-44.0); MEAN CORPUSCULAR HEMOGLOBIN 31.4 pg (27.0-33.0); MEAN CORPUSCULAR HGB CONC 35.8 g/dl (32.0-36.5); MEAN CORPUSCULAR VOLUME 87.8 fl (80.0-96.0); MONO % 8.6 % (2.0-8.0); NEUTROPHILS # 7.7 10^3/uL (1.5-8.5); NEUTROPHILS % 69.9 % (36.0-66.0); PLATELET COUNT, AUTOMATED 373 10^3/uL (150-450); RED BLOOD COUNT 4.68 10^6/uL (4.30-6.10)
[2023-10-06 06:21] LABS: BLOOD UREA NITROGEN 6 MG/DL (9-23); CALCIUM LEVEL 8.2 MG/DL (8.3-10.6); CARBON DIOXIDE LEVEL 27 MMOL/L (20-31); CHLORIDE LEVEL 102 MMOL/L (98-107); CREATININE FOR GFR 0.74 MG/DL (0.70-1.30); GLOMERULAR FILTRATION RATE > 60.0 (>42); GLUCOSE, FASTING 104 MG/DL (74-106); POTASSIUM SERUM 3.7 MMOL/L (3.5-5.1); SODIUM LEVEL 136 MMOL/L (136-145)
[2023-10-06] MEDS ORDERED: MED REC CURRENTLY UNOBTAINABLE XX SCH (06:35)
[2023-10-06 08:10] VITALS: BP 140/100; TEMP 97.7; O2SAT 98
[2023-10-06 09:54] VITALS: BP 150/97; TEMP 97.9; O2SAT 98
[2023-10-06] MEDS ORDERED: VITA500T40 PO (10:00)
[2023-10-06] MEDS ORDERED: PANT40TA29 PO (10:00)
[2023-10-06] MEDS ORDERED: MAGN500C2 PO (10:00)
[2023-10-06] MEDS ORDERED: VITA100T28 PO (10:00)
[2023-10-06] MEDS ORDERED: HOME MED LIST COMPLETE! XX SCH (10:05)
[2023-10-06] MEDS: APIXABAN 5 MG TAB (ELIQUIS) PO SCH (10:31)
[2023-10-06] MEDS: CYANOCOBALAMIN 500 MCG TAB PO SCH (10:31)
[2023-10-06] MEDS: THIAMINE 100 MG TAB PO SCH (10:32)
[2023-10-06] MEDS: MAGNESIUM OXIDE 400MG TAB (MAG-OX) PO SCH (10:32)
[2023-10-06] MEDS: levETIRAcetam 250MG TABLET (KEPPRA) PO SCH (10:32)
[2023-10-06] MEDS: PARoxetine 10MG TABLET PO SCH (10:33)
[2023-10-06] MEDS: PANTOPRAZOLE 40MG TAB (PROTONIX) PO SCH (10:33)
[2023-10-06] MEDS: FOLIC ACID 1MG TAB PO SCH (10:33)
[2023-10-06] MEDS: MAG SULF 1GM/100ML (MAG RUN) 1 GM in IV 1 EA IV SCH (12:11)
[2023-10-06 14:00] VITALS: BP 147/98; TEMP 97.5; O2SAT 96
[2023-10-06] MEDS ORDERED: cefTRIAXone SOD 1 GM in D5W MINI-BAG PLUS 50 ML IV SCH (23:00)
[2023-10-06] MEDS: cefTRIAXone SOD 1 GM in D5W MINI-BAG PLUS 50 ML IV SCH (23:08)
[2023-10-07] VITALS: BP 149/94; TEMP 97.7; O2SAT 93
[2023-10-07 04:44] VITALS: BP 124/85; TEMP 97.7; O2SAT 94
[2023-10-07] MEDS: MAG SULF 1GM/100ML (MAG RUN) 1 GM in IV 1 EA IV SCH (08:03)
[2023-10-07] MEDS: CIPROFLOXACIN 500MG TABLET PO SCH (08:05)
[2023-10-07 08:34] LABS: BASO % 0.4 % (0.0-1.0); EOS # 0.3 10^3/uL (0.0-0.5); EOS % 2.3 % (0.0-3.0); HEMATOCRIT 42.5 % (42.0-52.0); HEMOGLOBIN 14.8 g/dl (13.5-17.5); LYMPH % 18.9 % (24.0-44.0); MEAN CORPUSCULAR HEMOGLOBIN 31.3 pg (27.0-33.0); MEAN CORPUSCULAR HGB CONC 34.8 g/dl (32.0-36.5); MEAN CORPUSCULAR VOLUME 89.9 fl (80.0-96.0); MONO # 0.6 10^3/uL (0.0-0.8); MONO % 5.7 % (2.0-8.0); NEUTROPHILS # 7.7 10^3/uL (1.5-8.5); NEUTROPHILS % 72.2 % (36.0-66.0); PLATELET COUNT, AUTOMATED 345 10^3/uL (150-450); RED BLOOD COUNT 4.73 10^6/uL (4.30-6.10); WHITE BLOOD COUNT 10.7 10^3/uL (4.0-10.0)
[2023-10-07 09:02] LABS: BLOOD UREA NITROGEN 7 MG/DL (9-23); CALCIUM LEVEL 8.7 MG/DL (8.3-10.6); CARBON DIOXIDE LEVEL 26 MMOL/L (20-31); CHLORIDE LEVEL 105 MMOL/L (98-107); CREATININE FOR GFR 0.78 MG/DL (0.70-1.30); GLOMERULAR FILTRATION RATE > 60.0 (>42); GLUCOSE, FASTING 108 MG/DL (74-106); POTASSIUM SERUM 4.1 MMOL/L (3.5-5.1); SODIUM LEVEL 137 MMOL/L (136-145)
[2023-10-07 14:00] VITALS: BP 125/79; TEMP 97.7; O2SAT 99
[2023-10-07 22:00] VITALS: BP 139/86; TEMP 97.1; O2SAT 98
[2023-10-08] MEDS: TAMSULOSIN 0.4 MG CAP PO SCH (02:30)
[2023-10-08 05:16] VITALS: BP 110/75; TEMP 97.5; O2SAT 98
[2023-10-09 06:00] VITALS: BP 121/77; TEMP 97.5; O2SAT 97
[2023-10-10 06:00] VITALS: BP 115/81; TEMP 97.5; O2SAT 98
[2023-10-11 06:23] VITALS: BP 120/80; TEMP 97.5; O2SAT 96
[2023-10-11] MEDS ORDERED: CIPR500T39 PO (09:22)
== END 2023-10-11 12:00 | disposition home health service (06) | DRG 689 ==
LOC: M ED 20:07 → M ED INP 23:38 → EEVIPCON 23:38 → M MS5PR 10-06 07:50
PROVIDERS: ADMIT Internal Medicine; ATTEND General Practice
DX: N39.0 Urinary tract infection, site not specified (principal); G93.41 Metabolic encephalopathy; F17.290 Nicotine dependence, other tobacco product, uncomplicated; E03.9 Hypothyroidism, unspecified; G93.89 Other specified disorders of brain; G31.84 Mild cognitive impairment of uncertain or unknown etiology; F41.9 Anxiety disorder, unspecified; F32.A Depression, unspecified; B96.29 Other Escherichia coli [E. coli] as the cause of diseases classified elsewhere; N40.0 Benign prostatic hyperplasia without lower urinary tract symptoms; Z79.899 Other long term (current) drug therapy

== ENCOUNTER 2023-10-31 12:35 | Inpatient (IN) | payer MEDICARE, MEDICAID ==
[~2023-10-31] VITALS: Ht 162.6 cm; Wt 82.7 kg
[~2023-10-31 12:35] MED LIST changes: +CIPR500T39 PO; +MAGN500C2 PO; +VITA100T28 PO
[2023-10-31] MEDS ORDERED: LORazepam 2 MG/ML 1ML VIAL As Ordered ONE (13:09)
[2023-10-31] MEDS: LORazepam 2 MG/ML 1ML VIAL IM STA (13:15)
[2023-10-31] MEDS: levETIRAcetam INJection 1,000 MG in D5W 100 ML IV ONE (13:29)
[2023-10-31 13:30] VITALS: O2SAT 92
[2023-10-31 13:35] LABS: BASO # 0.1 10^3/uL (0.0-0.2); BASO % 0.5 % (0.0-1.0); EOS # 0.1 10^3/uL (0.0-0.5); EOS % 0.3 % (0.0-3.0); LYMPH % 13.3 % (24.0-44.0); MEAN CORPUSCULAR HEMOGLOBIN 31.5 pg (27.0-33.0); MEAN CORPUSCULAR HGB CONC 33.3 g/dl (32.0-36.5); MEAN CORPUSCULAR VOLUME 94.5 fl (80.0-96.0); MONO # 1.2 10^3/uL (0.0-0.8); MONO % 8.2 % (2.0-8.0); NEUTROPHILS # 11.4 10^3/uL (1.5-8.5); NEUTROPHILS % 77.2 % (36.0-66.0); PLATELET COUNT, AUTOMATED 353 10^3/uL (150-450); RED BLOOD COUNT 5.08 10^6/uL (4.30-6.10); WHITE BLOOD COUNT 14.8 10^3/uL (4.0-10.0)
[2023-10-31 13:38] LABS: ABG BASE EXCESS -21.4 (-2.0-2.0); ABG HCO3 7.6 MMOL/L (22.0-26.0); ABG O2 SATURATION 98.5 % (95.0-99.0); ABG PARTIAL PRESSURE CO2 27.4 mmHg (35.0-45.0); ABG PARTIAL PRESSURE O2 171.5 mmHg (75.0-100.0); ABG STANDARD HCO3 9.8 MMOL/L. (22.0-26.0); ABG TOTAL CO2 8.4 MMOL/L (23.0-31.0)
[2023-10-31 13:42] LABS: ABG pH (ARTERIAL) 7.061 UNITS (7.350-7.450)
[2023-10-31 13:59] LABS: AMPHETAMINES LEVEL URINE NEGATIVE (NEGATIVE); BARBITURATES URINE NEGATIVE (NEGATIVE); BENZODIAZEPINES URINE NEGATIVE (NEGATIVE); CANNABINOIDS URINE NEGATIVE (NEGATIVE); COCAINE METABOLITE URINE NEGATIVE (NEGATIVE); METHADONE URINE NEGATIVE (NEGATIVE); OPIATES URINE NEGATIVE (NEGATIVE); PHENCYCLIDINE URINE NEGATIVE (NEGATIVE)
[2023-10-31 13:59] LABS: ETHYL ALCOHOL (ETHANOL) 0.013 % (0.000-0.010)
[2023-10-31 14:01] LABS: ALKALINE PHOSPHATASE 137 U/L (46-116); ALT/SGPT 20 U/L (7.0-40); AST/SGOT 28 U/L (<34); BILIRUBIN,DIRECT 0.2 MG/DL (<0.4); BILIRUBIN,TOTAL 0.4 MG/DL (0.3-1.2); BLOOD UREA NITROGEN 6 MG/DL (9-23); CALCIUM LEVEL 10.9 MG/DL (8.3-10.6); CARBON DIOXIDE LEVEL 18 MMOL/L (20-31); CHLORIDE LEVEL 100 MMOL/L (98-107); CREATININE FOR GFR 0.77 MG/DL (0.70-1.30); GLOMERULAR FILTRATION RATE > 60.0 (>42); GLUCOSE, FASTING 136 MG/DL (74-106); POTASSIUM SERUM 4.7 MMOL/L (3.5-5.1); SODIUM LEVEL 139 MMOL/L (136-145); TOTAL PROTEIN 7.8 G/DL (5.7-8.2)
[2023-10-31 14:03] LABS: FREE T4 0.91 NG/DL (0.89-1.76); THYROID STIMULATING HORMONE 2.989 uIU/ML (0.55-4.78)
[2023-10-31 14:38] LABS: ABG BASE EXCESS -7.6 (-2.0-2.0); ABG HCO3 15.4 MMOL/L (22.0-26.0); ABG O2 SATURATION 93.1 % (95.0-99.0); ABG PARTIAL PRESSURE CO2 26.2 mmHg (35.0-45.0); ABG PARTIAL PRESSURE O2 70.3 mmHg (75.0-100.0); ABG STANDARD HCO3 18.3 MMOL/L. (22.0-26.0); ABG TOTAL CO2 16.2 MMOL/L (23.0-31.0); ABG pH (ARTERIAL) 7.387 UNITS (7.350-7.450)
[2023-10-31 15:22] LABS: RSV AMPLIFICATION NEGATIVE (NEGATIVE)
[2023-10-31] MEDS: MULTIVITAMIN -ADULT INJECTION 10 ML, THIAMINE INJection 100 MG, FOLIC ACID 1 MG in NS 1... IV ONE (15:31)
[2023-10-31] MEDS ORDERED: HOME MED LIST COMPLETE! XX SCH (17:15)
[2023-10-31] MEDS ORDERED: MOM 30ML SUSPENSION UDC PO PRN (17:35)
[2023-10-31] MEDS ORDERED: MAALOX 30 ML SUSP *UDC PO PRN (17:35)
[2023-10-31] MEDS ORDERED: ACETAMINOPHEN TAB 650MG DOSE (2X325MG) PO PRN (17:35)
[2023-10-31] MEDS ORDERED: LORazepam 2 MG TAB PO PRN (17:40)
[2023-10-31] MEDS: THIAMINE 100 MG TAB PO SCH (18:17)
[2023-10-31 18:38] LABS: INR 1.07; PROTHROMBIN TIME 13.6 SECONDS (12.5-14.5)
[2023-10-31] MEDS: levETIRAcetam 250MG TABLET (KEPPRA) PO SCH (21:38)
[2023-10-31] MEDS: LACTULOSE 20GM/30ML SYRUP UDC PO SCH (22:00)
[2023-11-01] VITALS (11 sets, daily range): BP systolic 116–155; BP diastolic 68–97; TEMP 97.4–98.7; O2SAT 95–100
[2023-11-01] MEDS: NS 1,000 ML IV SCH (01:47)
[2023-11-01] MEDS: TAMSULOSIN 0.4 MG CAP PO ONE (02:50)
[2023-11-01 05:38] LABS: BASO % 0.3 % (0.0-1.0); EOS # 0.1 10^3/uL (0.0-0.5); EOS % 1.1 % (0.0-3.0); HEMATOCRIT 41.5 % (42.0-52.0); HEMOGLOBIN 14.5 g/dl (13.5-17.5); LYMPH # 1.4 10^3/uL (1.5-5.0); MEAN CORPUSCULAR HEMOGLOBIN 31.5 pg (27.0-33.0); MEAN CORPUSCULAR HGB CONC 34.9 g/dl (32.0-36.5); MEAN CORPUSCULAR VOLUME 90.2 fl (80.0-96.0); MONO # 1.1 10^3/uL (0.0-0.8); MONO % 9.9 % (2.0-8.0); NEUTROPHILS # 8.8 10^3/uL (1.5-8.5); NEUTROPHILS % 76.5 % (36.0-66.0); PLATELET COUNT, AUTOMATED 276 10^3/uL (150-450); WHITE BLOOD COUNT 11.5 10^3/uL (4.0-10.0)
[2023-11-01 06:48] LABS: BLOOD UREA NITROGEN < 5 MG/DL (9-23); CALCIUM LEVEL 8.8 MG/DL (8.3-10.6); CARBON DIOXIDE LEVEL 28 MMOL/L (20-31); CHLORIDE LEVEL 103 MMOL/L (98-107); CREATININE FOR GFR 0.82 MG/DL (0.70-1.30); GLOMERULAR FILTRATION RATE > 60.0 (>42); GLUCOSE, FASTING 93 MG/DL (74-106); MAGNESIUM LEVEL 2.2 MG/DL (1.8-2.4); POTASSIUM SERUM 3.8 MMOL/L (3.5-5.1); SODIUM LEVEL 138 MMOL/L (136-145)
[2023-11-01] MEDS: ENOXAPARIN 40MG/0.4ML SYRINGE (J1650 PER 10MG) SC SCH (09:35)
[2023-11-01] MEDS: PARoxetine 10MG TABLET PO SCH (09:35)
[2023-11-01] MEDS: MULTIVITAMINS/MINERALS THERAP 1 TAB PO SCH (09:35)
[2023-11-01] MEDS: FOLIC ACID 1MG TAB PO SCH (09:36)
[2023-11-01] MEDS: PANTOPRAZOLE 40MG TAB (PROTONIX) PO SCH (09:36)
[2023-11-02] VITALS: BP 144/85
[2023-11-02 04:00] VITALS: BP 140/87; TEMP 98.6; O2SAT 96
[2023-11-02] MEDS: TAMSULOSIN 0.4 MG CAP PO SCH (05:29)
[2023-11-02 06:23] LABS: HEMATOCRIT 38.3 % (42.0-52.0); HEMOGLOBIN 13.7 g/dl (13.5-17.5); MEAN CORPUSCULAR HEMOGLOBIN 32.5 pg (27.0-33.0); MEAN CORPUSCULAR HGB CONC 35.8 g/dl (32.0-36.5); MEAN CORPUSCULAR VOLUME 90.8 fl (80.0-96.0); PLATELET COUNT, AUTOMATED 238 10^3/uL (150-450); RED BLOOD COUNT 4.22 10^6/uL (4.30-6.10)
[2023-11-02 06:55] LABS: ALKALINE PHOSPHATASE 107 U/L (46-116); ALT/SGPT 13 U/L (7.0-40); AST/SGOT 21 U/L (<34); BLOOD UREA NITROGEN 7 MG/DL (9-23); CALCIUM LEVEL 8.4 MG/DL (8.3-10.6); CARBON DIOXIDE LEVEL 25 MMOL/L (20-31); CHLORIDE LEVEL 104 MMOL/L (98-107); CREATININE FOR GFR 0.75 MG/DL (0.70-1.30); GLOMERULAR FILTRATION RATE > 60.0 (>42); GLUCOSE, FASTING 118 MG/DL (74-106); POTASSIUM SERUM 3.2 MMOL/L (3.5-5.1); SODIUM LEVEL 138 MMOL/L (136-145)
[2023-11-02 07:45] VITALS: BP 148/86; TEMP 98.7; O2SAT 100
[2023-11-02 08:00] VITALS: BP 148/86
[2023-11-02] MEDS: LACTULOSE 20GM/30ML SYRUP UDC PO SCH (08:39)
[2023-11-02] MEDS: POTASSIUM CHLORIDE 10MEQ SR TABLET PO ONE (08:40)
[2023-11-02 11:52] VITALS: BP 116/62; TEMP 98.2; O2SAT 97
[2023-11-02 12:00] VITALS: BP 116/62
[2023-11-02] MEDS ORDERED: LACT20EL PO (13:27)
[2023-11-02] MEDS ORDERED: FLOM0.4C39 PO (13:27)
== END 2023-11-02 14:45 | disposition home health service (06) | DRG 100 ==
LOC: M ED 13:32 → M ED INP 13:33 → ENRESERV 23:04 → M PCU 11-01 00:10 → OBSVTOIN 11-01 15:32
PROVIDERS: ADMIT Student in an Organized Health Care Education/Training Program; ATTEND Internal Medicine
DX: G40.909 Epilepsy, unspecified, not intractable, without status epilepticus (principal); G93.41 Metabolic encephalopathy; E72.20 Disorder of urea cycle metabolism, unspecified; E87.20 Acidosis, unspecified; I10 Essential (primary) hypertension; R33.9 Retention of urine, unspecified; F32.A Depression, unspecified; F10.229 Alcohol dependence with intoxication, unspecified; Z91.148 Patient's other noncompliance with medication regimen for other reason; Z79.899 Other long term (current) drug therapy

== ENCOUNTER 2023-11-22 09:45 | Emergency (ER) | payer MEDICARE, MEDICAID ==
[~2023-11-22] VITALS: Ht 162.6 cm; Wt 79.2 kg
[~2023-11-22 09:45] MED LIST changes: +LACT20EL PO
[2023-11-22] MEDS ORDERED: ISOVUE-370 76% 100ML VIAL As Ordered ONE (12:06)
[2023-11-22 12:16] LABS: BASO # 0.1 10^3/uL (0.0-0.2); BASO % 0.4 % (0.0-1.0); EOS # 0.2 10^3/uL (0.0-0.5); EOS % 1.6 % (0.0-3.0); HEMATOCRIT 36.8 % (42.0-52.0); HEMOGLOBIN 12.7 g/dl (13.5-17.5); LYMPH # 1.7 10^3/uL (1.5-5.0); LYMPH % 15.3 % (24.0-44.0); MEAN CORPUSCULAR HEMOGLOBIN 31.9 pg (27.0-33.0); MEAN CORPUSCULAR HGB CONC 34.5 g/dl (32.0-36.5); MEAN CORPUSCULAR VOLUME 92.5 fl (80.0-96.0); MONO # 0.8 10^3/uL (0.0-0.8); MONO % 7.1 % (2.0-8.0); NEUTROPHILS # 8.4 10^3/uL (1.5-8.5); NEUTROPHILS % 75.2 % (36.0-66.0); PLATELET COUNT, AUTOMATED 389 10^3/uL (150-450); RED BLOOD COUNT 3.98 10^6/uL (4.30-6.10); WHITE BLOOD COUNT 11.2 10^3/uL (4.0-10.0)
[2023-11-22 12:26] LABS: ERYTHROCYTE SEDIMENTATION RATE 54 mm/hr (0-20)
[2023-11-22 13:56] VITALS: BP 116/69; TEMP 98.4; O2SAT 100
[2023-11-22] MEDS ORDERED: BACT800T5 PO (15:36)
[2023-11-22] MEDS: BACTRIM 160MG/800MG DS TAB PO ONE (16:09)
[2023-11-23] MEDS ORDERED: BACTDSTA PO (18:20)
[2023-11-23] MEDS ORDERED: LACT20EL PO (18:20)
== END 2023-11-22 16:45 | disposition home or self-care (01) ==
LOC: M ED 09:45
DX: L03.116 Cellulitis of left lower limb (principal); N39.0 Urinary tract infection, site not specified; I10 Essential (primary) hypertension; E78.5 Hyperlipidemia, unspecified; E05.90 Thyrotoxicosis, unspecified without thyrotoxic crisis or storm; F17.290 Nicotine dependence, other tobacco product, uncomplicated; F10.10 Alcohol abuse, uncomplicated; Z79.899 Other long term (current) drug therapy
CPT/HCPCS: 36415; 73590; 73701; 80047; 81001; 83605; 85025; 85652; 86140; 87040; 87077; 87088; 87186; 93971; 99284; Q9967

== ENCOUNTER 2023-11-23 14:38 | Inpatient (IN) | payer MEDICARE, MEDICAID ==
[~2023-11-23] VITALS: Ht 162.6 cm; Wt 75.5 kg
[~2023-11-23 14:38] MED LIST changes: +BACT800T5 PO; +DOXY-323 PO; -DOXY-443 PO
[2023-11-23 15:24] LABS: BASO # 0.1 10^3/uL (0.0-0.2); BASO % 0.4 % (0.0-1.0); EOS # 0.1 10^3/uL (0.0-0.5); EOS % 0.7 % (0.0-3.0); HEMATOCRIT 36.2 % (42.0-52.0); HEMOGLOBIN 12.6 g/dl (13.5-17.5); LYMPH # 1.9 10^3/uL (1.5-5.0); LYMPH % 11.9 % (24.0-44.0); MEAN CORPUSCULAR HEMOGLOBIN 31.7 pg (27.0-33.0); MEAN CORPUSCULAR HGB CONC 34.8 g/dl (32.0-36.5); MONO # 1.1 10^3/uL (0.0-0.8); MONO % 6.7 % (2.0-8.0); NEUTROPHILS # 12.5 10^3/uL (1.5-8.5); NEUTROPHILS % 79.9 % (36.0-66.0); PLATELET COUNT, AUTOMATED 349 10^3/uL (150-450); RED BLOOD COUNT 3.98 10^6/uL (4.30-6.10); WHITE BLOOD COUNT 15.6 10^3/uL (4.0-10.0)
[2023-11-23 15:33] LABS: ERYTHROCYTE SEDIMENTATION RATE 60 mm/hr (0-20)
[2023-11-23 15:46] LABS: ETHYL ALCOHOL (ETHANOL) 0.137 % (0.000-0.010)
[2023-11-23 15:48] LABS: ALKALINE PHOSPHATASE 140 U/L (46-116); ALT/SGPT 14 U/L (7.0-40); AST/SGOT 20 U/L (<34); BILIRUBIN,DIRECT 0.3 MG/DL (<0.4); BILIRUBIN,TOTAL 0.6 MG/DL (0.3-1.2); BLOOD UREA NITROGEN 9 MG/DL (9-23); CALCIUM LEVEL 8.2 MG/DL (8.3-10.6); CARBON DIOXIDE LEVEL 22 MMOL/L (20-31); CHLORIDE LEVEL 95 MMOL/L (98-107); CREATININE FOR GFR 1.01 MG/DL (0.70-1.30); GLOMERULAR FILTRATION RATE > 60.0 (>42); GLUCOSE, FASTING 83 MG/DL (74-106); POTASSIUM SERUM 3.5 MMOL/L (3.5-5.1); SODIUM LEVEL 128 MMOL/L (136-145); TOTAL PROTEIN 6.9 G/DL (5.7-8.2)
[2023-11-23 16:26] LABS: PROCALCITONIN 0.15 ng/ml
[2023-11-23] MEDS ORDERED: BACTDSTA PO (18:20)
[2023-11-23] MEDS ORDERED: LACT20EL PO (18:20)
[2023-11-23] MEDS ORDERED: HOME MED LIST COMPLETE! XX SCH (18:25)
[2023-11-23] MEDS: cefTRIAXone SOD 1 GM in D5W MINI-BAG PLUS 50 ML IV SCH (18:30)
[2023-11-23] MEDS ORDERED: LACTULOSE 20GM/30ML SYRUP UDC PO PRN (18:35)
[2023-11-23] MEDS: THIAMINE 100 MG TAB PO SCH (19:35)
[2023-11-23] MEDS: MULTIVITAMINS/MINERALS THERAP 1 TAB PO SCH (19:35)
[2023-11-23] MEDS: FOLIC ACID 1MG TAB PO SCH (19:35)
[2023-11-23] MEDS: LORazepam 2 MG TAB PO PRN (19:41)
[2023-11-23] MEDS ORDERED: VANCOMYCIN HCL 1,000 MG, VIAL MATE ADAPTER 1 EACH in D5W 250 ML IV ONE (20:00)
[2023-11-23 20:37] LABS: OSMOLALITY URINE 146 MOSM/KG (50-1400)
[2023-11-23 20:45] LABS: SODIUM,RANDOM URINE 26 MMOL/L
[2023-11-23] MEDS: levETIRAcetam 250MG TABLET (KEPPRA) PO SCH (21:38)
[2023-11-23 23:10] VITALS: BP 148/93; TEMP 99.2; O2SAT 93
[2023-11-23] MEDS: OXAZEPAM 15MG CAP PO ONE (23:25)
[2023-11-23 23:30] VITALS: BP 148/93
[2023-11-24] VITALS (8 sets, daily range): BP systolic 114–141; BP diastolic 72–81; TEMP 97.8–100.8; O2SAT 93–99
[2023-11-24] MEDS: OXAZEPAM 15MG CAP PO ONE (01:32)
[2023-11-24] MEDS: OXAZEPAM 15MG CAP PO SCH (05:36)
[2023-11-24 06:26] LABS: HEMATOCRIT 35.3 % (42.0-52.0); HEMOGLOBIN 12.5 g/dl (13.5-17.5); MEAN CORPUSCULAR HEMOGLOBIN 31.9 pg (27.0-33.0); MEAN CORPUSCULAR HGB CONC 35.4 g/dl (32.0-36.5); MEAN CORPUSCULAR VOLUME 90.1 fl (80.0-96.0); PLATELET COUNT, AUTOMATED 347 10^3/uL (150-450); RED BLOOD COUNT 3.92 10^6/uL (4.30-6.10); WHITE BLOOD COUNT 10.5 10^3/uL (4.0-10.0)
[2023-11-24 06:43] LABS: BLOOD UREA NITROGEN 12 MG/DL (9-23); CALCIUM LEVEL 8.3 MG/DL (8.3-10.6); CARBON DIOXIDE LEVEL 25 MMOL/L (20-31); CHLORIDE LEVEL 105 MMOL/L (98-107); CREATININE FOR GFR 1.26 MG/DL (0.70-1.30); GLOMERULAR FILTRATION RATE > 60.0 (>42); GLUCOSE, FASTING 101 MG/DL (74-106); MAGNESIUM LEVEL 1.6 MG/DL (1.8-2.4); POTASSIUM SERUM 3.7 MMOL/L (3.5-5.1); SODIUM LEVEL 138 MMOL/L (136-145)
[2023-11-24] MEDS ORDERED: VANCOMYCIN HCL 750 MG, VIAL MATE ADAPTER 1 EACH in D5W 250 ML IV SCH (09:00)
[2023-11-24] MEDS: TAMSULOSIN 0.4 MG CAP PO SCH (10:03)
[2023-11-24] MEDS: RIVAROXABAN 10MG TAB (XARELTO) PO SCH (10:03)
[2023-11-24] MEDS: PANTOPRAZOLE 40MG TAB (PROTONIX) PO SCH (10:03)
[2023-11-24] MEDS ORDERED: FOSFOMYCIN TROMETHAMINE 3 GM POWDER PACKET (MONUROL) PO ONE (10:55)
[2023-11-24] MEDS: MAG SULF 1GM/100ML (MAG RUN) 1 GM in IV 1 EA IV SCH (11:01)
[2023-11-24] MEDS: CEFDINIR 300 MG CAP (OMNICEF) PO SCH (20:09)
[2023-11-25 01:59] VITALS: BP 132/80
[2023-11-25] MEDS: CEFEPIME HCL 1 GM in D5W MINI-BAG PLUS 50 ML IV SCH (02:18)
[2023-11-25 05:41] VITALS: BP 121/76; TEMP 97.2; O2SAT 96
[2023-11-25 05:42] VITALS: BP 121/76
[2023-11-25] MEDS ORDERED: OXAZEPAM 15MG CAP PO SCH (06:00)
[2023-11-25 06:04] LABS: HEMATOCRIT 36.5 % (42.0-52.0); MEAN CORPUSCULAR HEMOGLOBIN 31.3 pg (27.0-33.0); MEAN CORPUSCULAR HGB CONC 35.6 g/dl (32.0-36.5); MEAN CORPUSCULAR VOLUME 87.7 fl (80.0-96.0); PLATELET COUNT, AUTOMATED 383 10^3/uL (150-450); RED BLOOD COUNT 4.16 10^6/uL (4.30-6.10)
[2023-11-25 06:27] LABS: BLOOD UREA NITROGEN 9 MG/DL (9-23); CALCIUM LEVEL 8.5 MG/DL (8.3-10.6); CARBON DIOXIDE LEVEL 20 MMOL/L (20-31); CHLORIDE LEVEL 102 MMOL/L (98-107); GLOMERULAR FILTRATION RATE > 60.0 (>42); GLUCOSE, FASTING 111 MG/DL (74-106); MAGNESIUM LEVEL 1.8 MG/DL (1.8-2.4); POTASSIUM SERUM 3.5 MMOL/L (3.5-5.1); SODIUM LEVEL 133 MMOL/L (136-145)
[2023-11-25] MEDS ORDERED: Multivitamins PO (09:11)
[2023-11-25] MEDS ORDERED: FOLI1TAB11 PO (09:11)
[2023-11-25] MEDS ORDERED: CEFD300CAP PO (09:11)
[2023-11-25] MEDS ORDERED: THIA100TA PO (09:11)
[2023-11-25] MEDS: CEFDINIR 300 MG CAP (OMNICEF) PO SCH (10:03)
[2023-11-25] MEDS ORDERED: MULT1TAB8 PO (10:41)
[2023-11-25] MEDS: ERTAPENEM SODIUM 1 GM in NS MINI-BAG PLUS 50 ML IV SCH (12:43)
[2023-11-25] MEDS ORDERED: ISOVUE-370 76% 100ML VIAL As Ordered ONE (13:03)
[2023-11-25 20:00] VITALS: BP 162/102; TEMP 98.1; O2SAT 100
[2023-11-25 20:33] VITALS: BP 140/92
[2023-11-25] MEDS: PHENAZOPYRIDINE 100 MG TAB PO ONE (23:16)
[2023-11-25] MEDS: NYSTATIN 100,000 UNITS/GM TOPICAL PWD 15GM TOP SCH (23:17)
[2023-11-26 05:22] VITALS: BP 120/82; TEMP 97.1; O2SAT 98
[2023-11-26 06:30] LABS: HEMATOCRIT 38.4 % (42.0-52.0); HEMOGLOBIN 13.9 g/dl (13.5-17.5); MEAN CORPUSCULAR HEMOGLOBIN 31.5 pg (27.0-33.0); MEAN CORPUSCULAR HGB CONC 36.2 g/dl (32.0-36.5); MEAN CORPUSCULAR VOLUME 87.1 fl (80.0-96.0); PLATELET COUNT, AUTOMATED 441 10^3/uL (150-450); RED BLOOD COUNT 4.41 10^6/uL (4.30-6.10)
[2023-11-26 06:36] LABS: ERYTHROCYTE SEDIMENTATION RATE 86 mm/hr (0-20)
[2023-11-26 06:56] LABS: BLOOD UREA NITROGEN 7 MG/DL (9-23); CALCIUM LEVEL 8.3 MG/DL (8.3-10.6); CARBON DIOXIDE LEVEL 19 MMOL/L (20-31); CHLORIDE LEVEL 104 MMOL/L (98-107); CREATININE FOR GFR 0.93 MG/DL (0.70-1.30); GLOMERULAR FILTRATION RATE > 60.0 (>42); GLUCOSE, FASTING 105 MG/DL (74-106); POTASSIUM SERUM 3.1 MMOL/L (3.5-5.1); SODIUM LEVEL 135 MMOL/L (136-145)
[2023-11-26] MEDS: POTASSIUM CHLORIDE 10MEQ SR TABLET PO ONE (08:19)
[2023-11-26 12:14] LABS: ALBUMIN 2.6 G/DL (3.2-5.2); ALKALINE PHOSPHATASE 148 U/L (46-116); ALT/SGPT 26 U/L (7.0-40); AST/SGOT 31 U/L (<34); BILIRUBIN,DIRECT 0.3 MG/DL (<0.4); BILIRUBIN,TOTAL 0.7 MG/DL (0.3-1.2); TOTAL PROTEIN 6.4 G/DL (5.7-8.2)
[2023-11-26] MEDS: ACETAMINOPHEN TAB 650MG DOSE (2X325MG) PO PRN (12:15)
[2023-11-26] MEDS: LACTOBACILLUS ACIDOPHILUS CAP (BACID) PO SCH (14:26)
[2023-11-26 14:54] VITALS: BP 113/77; TEMP 97.7; O2SAT 99
[2023-11-26 19:35] VITALS: BP 118/81; TEMP 97.7; O2SAT 100
[2023-11-27 05:46] VITALS: BP 113/78; TEMP 98.1; O2SAT 98
[2023-11-27 06:33] LABS: HEMOGLOBIN 13.4 g/dl (13.5-17.5); MEAN CORPUSCULAR HEMOGLOBIN 30.7 pg (27.0-33.0); MEAN CORPUSCULAR HGB CONC 35.3 g/dl (32.0-36.5); MEAN CORPUSCULAR VOLUME 87.2 fl (80.0-96.0); PLATELET COUNT, AUTOMATED 445 10^3/uL (150-450); RED BLOOD COUNT 4.36 10^6/uL (4.30-6.10); WHITE BLOOD COUNT 12.9 10^3/uL (4.0-10.0)
[2023-11-27 06:53] LABS: BLOOD UREA NITROGEN 7 MG/DL (9-23); CALCIUM LEVEL 8.2 MG/DL (8.3-10.6); CARBON DIOXIDE LEVEL 21 MMOL/L (20-31); CHLORIDE LEVEL 102 MMOL/L (98-107); CREATININE FOR GFR 0.85 MG/DL (0.70-1.30); GLOMERULAR FILTRATION RATE > 60.0 (>42); GLUCOSE, FASTING 98 MG/DL (74-106); POTASSIUM SERUM 3.5 MMOL/L (3.5-5.1); SODIUM LEVEL 133 MMOL/L (136-145)
[2023-11-27 14:00] VITALS: BP 113/78; TEMP 97.9; O2SAT 95
[2023-11-27 22:00] VITALS: BP 112/76; TEMP 98.2; O2SAT 97
[2023-11-28 06:00] VITALS: BP 110/74; TEMP 98.8; O2SAT 96
[2023-11-28 07:12] LABS: HEMATOCRIT 39.5 % (42.0-52.0); HEMOGLOBIN 13.6 g/dl (13.5-17.5); MEAN CORPUSCULAR HEMOGLOBIN 30.8 pg (27.0-33.0); MEAN CORPUSCULAR HGB CONC 34.4 g/dl (32.0-36.5); MEAN CORPUSCULAR VOLUME 89.4 fl (80.0-96.0); PLATELET COUNT, AUTOMATED 516 10^3/uL (150-450); RED BLOOD COUNT 4.42 10^6/uL (4.30-6.10); WHITE BLOOD COUNT 13.7 10^3/uL (4.0-10.0)
[2023-11-28 07:33] LABS: BLOOD UREA NITROGEN 9 MG/DL (9-23); CARBON DIOXIDE LEVEL 20 MMOL/L (20-31); CHLORIDE LEVEL 101 MMOL/L (98-107); CREATININE FOR GFR 0.93 MG/DL (0.70-1.30); GLOMERULAR FILTRATION RATE > 60.0 (>42); GLUCOSE, FASTING 111 MG/DL (74-106); POTASSIUM SERUM 3.4 MMOL/L (3.5-5.1); SODIUM LEVEL 133 MMOL/L (136-145)
[2023-11-28 09:02] LABS: PROCALCITONIN 0.12 ng/ml
[2023-11-28] MEDS: POTASSIUM CHLORIDE 10MEQ SR TABLET PO ONE (09:17)
[2023-11-28] MEDS ORDERED: FUROSEMIDE 20MG/2ML VIAL As Ordered ONE (13:59)
[2023-11-28 15:30] VITALS: BP 111/73; TEMP 97.7; O2SAT 98
[2023-11-28 22:00] VITALS: BP 132/57; TEMP 98.1; O2SAT 92
[2023-11-29 06:27] VITALS: BP 116/64; TEMP 98.8; O2SAT 99
[2023-11-29 06:59] LABS: HEMATOCRIT 35.9 % (42.0-52.0); HEMOGLOBIN 12.5 g/dl (13.5-17.5); MEAN CORPUSCULAR HEMOGLOBIN 31.1 pg (27.0-33.0); MEAN CORPUSCULAR HGB CONC 34.8 g/dl (32.0-36.5); MEAN CORPUSCULAR VOLUME 89.3 fl (80.0-96.0); PLATELET COUNT, AUTOMATED 493 10^3/uL (150-450); RED BLOOD COUNT 4.02 10^6/uL (4.30-6.10)
[2023-11-29 07:30] LABS: BLOOD UREA NITROGEN 11 MG/DL (9-23); CARBON DIOXIDE LEVEL 23 MMOL/L (20-31); CHLORIDE LEVEL 104 MMOL/L (98-107); CREATININE FOR GFR 0.88 MG/DL (0.70-1.30); GLOMERULAR FILTRATION RATE > 60.0 (>42); GLUCOSE, FASTING 95 MG/DL (74-106); POTASSIUM SERUM 3.5 MMOL/L (3.5-5.1); SODIUM LEVEL 137 MMOL/L (136-145)
[2023-11-29] MEDS ORDERED: PHENAZOPYRIDINE 100 MG TAB PO PRN (07:35)
[2023-11-29 14:27] VITALS: BP 127/81; TEMP 97.9; O2SAT 98
[2023-11-29 22:00] VITALS: BP 126/79; TEMP 98.1; O2SAT 99
[2023-11-29 23:10] LABS: PSA TOTAL 23.4 ng/mL (0.0-4.0)
[2023-11-30 06:41] VITALS: BP 104/65; TEMP 97.7; O2SAT 98
[2023-11-30 07:52] LABS: HEMATOCRIT 38.6 % (42.0-52.0); HEMOGLOBIN 13.4 g/dl (13.5-17.5); MEAN CORPUSCULAR HEMOGLOBIN 31.3 pg (27.0-33.0); MEAN CORPUSCULAR HGB CONC 34.7 g/dl (32.0-36.5); MEAN CORPUSCULAR VOLUME 90.2 fl (80.0-96.0); PLATELET COUNT, AUTOMATED 511 10^3/uL (150-450); RED BLOOD COUNT 4.28 10^6/uL (4.30-6.10)
[2023-11-30 08:00] LABS: ERYTHROCYTE SEDIMENTATION RATE 81 mm/hr (0-20)
[2023-11-30 08:20] LABS: BLOOD UREA NITROGEN 9 MG/DL (9-23); CALCIUM LEVEL 8.2 MG/DL (8.3-10.6); CARBON DIOXIDE LEVEL 23 MMOL/L (20-31); CHLORIDE LEVEL 104 MMOL/L (98-107); CREATININE FOR GFR 0.78 MG/DL (0.70-1.30); GLOMERULAR FILTRATION RATE > 60.0 (>42); GLUCOSE, FASTING 118 MG/DL (74-106); POTASSIUM SERUM 3.3 MMOL/L (3.5-5.1); SODIUM LEVEL 137 MMOL/L (136-145)
[2023-11-30 08:31] LABS: PROCALCITONIN 0.11 ng/ml
[2023-11-30] MEDS: POTASSIUM CHLORIDE 10MEQ SR TABLET PO ONE (11:41)
[2023-11-30 14:00] VITALS: BP 100/68; TEMP 97.7; O2SAT 100
[2023-11-30] MEDS: LR 1,000 ML IV SCH (18:19)
[2023-11-30 20:05] VITALS: BP 120/97; TEMP 97.7; O2SAT 99
[2023-12-01 05:32] VITALS: BP 106/64; TEMP 98.2; O2SAT 99
[2023-12-01 07:36] LABS: HEMATOCRIT 36.3 % (42.0-52.0); HEMOGLOBIN 12.5 g/dl (13.5-17.5); MEAN CORPUSCULAR HGB CONC 34.4 g/dl (32.0-36.5); MEAN CORPUSCULAR VOLUME 90.1 fl (80.0-96.0); PLATELET COUNT, AUTOMATED 497 10^3/uL (150-450); RED BLOOD COUNT 4.03 10^6/uL (4.30-6.10); WHITE BLOOD COUNT 12.7 10^3/uL (4.0-10.0)
[2023-12-01 08:06] LABS: BLOOD UREA NITROGEN 6 MG/DL (9-23); CALCIUM LEVEL 8.5 MG/DL (8.3-10.6); CARBON DIOXIDE LEVEL 24 MMOL/L (20-31); CHLORIDE LEVEL 106 MMOL/L (98-107); CREATININE FOR GFR 0.78 MG/DL (0.70-1.30); GLOMERULAR FILTRATION RATE > 60.0 (>42); GLUCOSE, FASTING 90 MG/DL (74-106); POTASSIUM SERUM 3.3 MMOL/L (3.5-5.1); SODIUM LEVEL 138 MMOL/L (136-145)
[2023-12-01] MEDS: POTASSIUM CHLORIDE 10MEQ SR TABLET PO ONE (09:46)
[2023-12-01] MEDS ORDERED: RISATAB3 PO (10:35)
[2023-12-01] MEDS ORDERED: PEPT262C2 PO (10:35)
== END 2023-12-01 15:27 | disposition home or self-care (01) | DRG 872 ==
LOC: M ED 14:38 → M ED INP 14:39 → ENRESERV 22:27 → M MSPAV 23:12 → OBSVTOIN 11-25 15:28
PROVIDERS: ADMIT Student in an Organized Health Care Education/Training Program; ATTEND Student in an Organized Health Care Education/Training Program
DX: R78.81 Bacteremia (principal); N13.30 Unspecified hydronephrosis; E87.1 Hypo-osmolality and hyponatremia; N13.4 Hydroureter; L03.116 Cellulitis of left lower limb; N39.0 Urinary tract infection, site not specified; N40.1 Benign prostatic hyperplasia with lower urinary tract symptoms; R33.9 Retention of urine, unspecified; G40.909 Epilepsy, unspecified, not intractable, without status epilepticus; F10.20 Alcohol dependence, uncomplicated; K59.00 Constipation, unspecified; K21.9 Gastro-esophageal reflux disease without esophagitis; G31.84 Mild cognitive impairment of uncertain or unknown etiology; B96.1 Klebsiella pneumoniae [K. pneumoniae] as the cause of diseases classified elsewhere; Z79.899 Other long term (current) drug therapy; F41.9 Anxiety disorder, unspecified; F32.A Depression, unspecified; F17.290 Nicotine dependence, other tobacco product, uncomplicated

== ENCOUNTER 2023-12-30 21:17 | Emergency (ER) | payer MEDICARE, MEDICAID ==
[~2023-12-30] VITALS: Ht 167.6 cm; Wt 73.5 kg
[~2023-12-30 21:17] MED LIST changes: +BACTDSTA PO; +CEFD300CAP PO; +MULT1TAB8 PO; +Multivitamins PO; +PEPT262C2 PO; +RISATAB3 PO
[2023-12-30 22:12] LABS: BASO % 0.3 % (0.0-1.0); EOS # 0.3 10^3/uL (0.0-0.5); EOS % 2.1 % (0.0-3.0); HEMATOCRIT 33.3 % (42.0-52.0); HEMOGLOBIN 11.5 g/dl (13.5-17.5); LYMPH # 2.7 10^3/uL (1.5-5.0); LYMPH % 22.7 % (24.0-44.0); MEAN CORPUSCULAR HEMOGLOBIN 30.6 pg (27.0-33.0); MEAN CORPUSCULAR HGB CONC 34.5 g/dl (32.0-36.5); MEAN CORPUSCULAR VOLUME 88.6 fl (80.0-96.0); MONO % 8.2 % (2.0-8.0); NEUTROPHILS # 7.9 10^3/uL (1.5-8.5); NEUTROPHILS % 65.9 % (36.0-66.0); PLATELET COUNT, AUTOMATED 357 10^3/uL (150-450); RED BLOOD COUNT 3.76 10^6/uL (4.30-6.10)
[2023-12-30] MEDS: NS 1,000 ML IV ONE (22:15)
[2023-12-30 22:18] LABS: ETHYL ALCOHOL (ETHANOL) 0.187 % (0.000-0.010)
[2023-12-30] MEDS: LIDOCAINE 2% MDV 20ML VIAL SC ONE (22:20)
[2023-12-30 22:33] LABS: BLOOD UREA NITROGEN < 5 MG/DL (9-23); CALCIUM LEVEL 7.7 MG/DL (8.3-10.6); CARBON DIOXIDE LEVEL 20 MMOL/L (20-31); CHLORIDE LEVEL 104 MMOL/L (98-107); CREATININE FOR GFR 0.77 MG/DL (0.70-1.30); GLOMERULAR FILTRATION RATE > 60.0 (>42); GLUCOSE, FASTING 98 MG/DL (74-106); POTASSIUM SERUM 2.8 MMOL/L (3.5-5.1); SODIUM LEVEL 136 MMOL/L (136-145)
[2023-12-30 23:03] LABS: MAGNESIUM LEVEL 1.6 MG/DL (1.8-2.4)
[2023-12-31] MEDS: MAG SULF 1GM/100ML (MAG RUN) 1 GM in IV 1 EA IV ONE (00:05)
[2023-12-31] MEDS: POTASSIUM CHLORIDE 10% LIQ 20MEQ/15ML UDC PO ONE ×2 (00:05)
[2023-12-31 00:53] VITALS: BP 130/84; TEMP 98; O2SAT 96
[2023-12-31] MEDS: BOOSTRIX VACCINE (TETANUS/DIPHTH/ACEL. PERTUSSIS) 0.5ML SYR IM.IMMUN ONE (01:02)
[2023-12-31] MEDS: BACITRACIN OINTMENT 30GM TUBE TOP PRN (01:19)
== END 2023-12-31 01:30 | disposition home or self-care (01) ==
LOC: M ED 21:17 → EDBD 21:17 → M ED 12-31 01:30
DX: F10.129 Alcohol abuse with intoxication, unspecified (principal); S01.01XA Laceration without foreign body of scalp, initial encounter; W10.8XXA Fall (on) (from) other stairs and steps, initial encounter; Y92.410 Unspecified street and highway as the place of occurrence of the external cause; Y93.89 Activity, other specified; Y99.9 Unspecified external cause status; Z79.83 Long term (current) use of bisphosphonates; Z79.899 Other long term (current) drug therapy; Z23 Encounter for immunization
CPT/HCPCS: 70450; 70486; 72125; 80048; 82077; 83735; 85025; 90471; 90715; 96361; 96365; 99284; J3475

== ENCOUNTER → 2024-01-11 | Outpatient (REF) | payer MEDICARE, MEDICAID ==
[2024-01-11 13:43] LABS: BLOOD UREA NITROGEN 10 MG/DL (9-23); CALCIUM LEVEL 7.8 MG/DL (8.3-10.6); CARBON DIOXIDE LEVEL 26 MMOL/L (20-31); CHLORIDE LEVEL 103 MMOL/L (98-107); GLOMERULAR FILTRATION RATE > 60.0 (>42); GLUCOSE, FASTING 112 MG/DL (74-106); MAGNESIUM LEVEL 1.3 MG/DL (1.8-2.4); SODIUM LEVEL 138 MMOL/L (136-145)
== END ==
LOC: M LAB REF 12:15
PROVIDERS: ATTEND Family Medicine Addiction Medicine
DX: E78.6 Lipoprotein deficiency (principal); E83.42 Hypomagnesemia

== ENCOUNTER 2024-01-12 12:55 | Emergency (ER) | payer MEDICARE, MEDICAID ==
[~2024-01-12] VITALS: Ht 177.8 cm; Wt 78.1 kg
[2024-01-12 13:51] LABS: HEMATOCRIT 34.1 % (42.0-52.0); HEMOGLOBIN 11.7 g/dl (13.5-17.5); MEAN CORPUSCULAR HEMOGLOBIN 30.9 pg (27.0-33.0); MEAN CORPUSCULAR HGB CONC 34.3 g/dl (32.0-36.5); PLATELET COUNT, AUTOMATED 337 10^3/uL (150-450); RED BLOOD COUNT 3.79 10^6/uL (4.30-6.10); WHITE BLOOD COUNT 14.6 10^3/uL (4.0-10.0)
[2024-01-12 14:02] LABS: ETHYL ALCOHOL (ETHANOL) < 0.003 % (0.000-0.010)
[2024-01-12] MEDS ORDERED: LORazepam 2 MG TAB PO PRN (14:05)
[2024-01-12 14:09] LABS: ALBUMIN 2.9 G/DL (3.2-5.2); ALKALINE PHOSPHATASE 191 U/L (46-116); ALT/SGPT 14 U/L (7.0-40); AST/SGOT 21 U/L (<34); BILIRUBIN,TOTAL 0.6 MG/DL (0.3-1.2); BLOOD UREA NITROGEN 5 MG/DL (9-23); CALCIUM LEVEL 8.1 MG/DL (8.3-10.6); CARBON DIOXIDE LEVEL 22 MMOL/L (20-31); CHLORIDE LEVEL 102 MMOL/L (98-107); CREATININE FOR GFR 0.87 MG/DL (0.70-1.30); GLOMERULAR FILTRATION RATE > 60.0 (>42); GLUCOSE, FASTING 114 MG/DL (74-106); MAGNESIUM LEVEL 1.5 MG/DL (1.8-2.4); POTASSIUM SERUM 2.8 MMOL/L (3.5-5.1); SODIUM LEVEL 137 MMOL/L (136-145); TOTAL PROTEIN 7.1 G/DL (5.7-8.2)
[2024-01-12] MEDS: MULTIVITAMINS/MINERALS THERAP 1 TAB PO SCH (14:57)
[2024-01-12] MEDS: NS 1,000 ML IV ONE (14:57)
[2024-01-12] MEDS: POTASSIUM CHLORIDE 10MEQ SR TABLET PO ONE (14:57)
[2024-01-12] MEDS: KCL 10MEQ/100ML SWI (KRUN) 10 MEQ in IV 1 EA IV ONE (14:57)
[2024-01-12] MEDS: THIAMINE 100 MG TAB PO SCH (14:57)
[2024-01-12] MEDS: FOLIC ACID 1MG TAB PO SCH (14:57)
[2024-01-12] MEDS: levETIRAcetam INJection 750 MG in D5W 100 ML IV ONE (16:08)
[2024-01-12] MEDS: MAG SULF 1GM/100ML (MAG RUN) 1 GM in IV 1 EA IV ONE (16:41)
[2024-01-12 18:00] VITALS: BP 137/83
[2024-01-12 18:15] VITALS: TEMP 99.1; O2SAT 96
== END 2024-01-12 18:20 | disposition home or self-care (01) ==
LOC: EDBD 12:55 → M ED 12:55
DX: G40.909 Epilepsy, unspecified, not intractable, without status epilepticus (principal); E83.42 Hypomagnesemia; E87.6 Hypokalemia; R00.0 Tachycardia, unspecified; M48.02 Spinal stenosis, cervical region; M50.221 Other cervical disc displacement at C4-C5 level; M50.222 Other cervical disc displacement at C5-C6 level; M50.223 Other cervical disc displacement at C6-C7 level; E78.5 Hyperlipidemia, unspecified; F10.10 Alcohol abuse, uncomplicated; F17.200 Nicotine dependence, unspecified, uncomplicated; Z91.148 Patient's other noncompliance with medication regimen for other reason; Z79.899 Other long term (current) drug therapy
CPT/HCPCS: 70450; 72125; 80053; 80177; 82077; 83735; 85027; 93005; 96365; 96366; 99285; J1953; J3475

== ENCOUNTER 2024-01-30 13:40 | Inpatient (IN) | payer MEDICARE, MEDICAID ==
[~2024-01-30] VITALS: Ht 162.6 cm; Wt 75.2 kg
[2024-01-30] MEDS ORDERED: LORazepam 2 MG TAB PO PRN (14:00)
[2024-01-30 14:06] LABS: VENOUS BASE EXCESS -3.8 (-2.0-2.0); VENOUS HCO3 20.8 MMOL/L (23.0-27.0); VENOUS O2 SATURATION 45.1 % (60.0-80.0); VENOUS PARTIAL PRESSURE CO2 36.3 mmHg (38.0-50.0); VENOUS PARTIAL PRESSURE O2 27.5 mmHg (30.0-50.0); VENOUS PH 7.377 UNITS (7.330-7.430); VENOUS STANDARD HCO3 20.3 MMOL/L
[2024-01-30 14:09] LABS: IONIZED CALCIUM 4.5 MG/DL (4.5-5.3)
[2024-01-30 14:15] LABS: BASO # 0.1 10^3/uL (0.0-0.2); BASO % 0.6 % (0.0-1.0); EOS # 0.2 10^3/uL (0.0-0.5); EOS % 1.8 % (0.0-3.0); HEMATOCRIT 32.4 % (42.0-52.0); LYMPH # 1.9 10^3/uL (1.5-5.0); LYMPH % 21.2 % (24.0-44.0); MEAN CORPUSCULAR HEMOGLOBIN 30.9 pg (27.0-33.0); MONO # 0.7 10^3/uL (0.0-0.8); MONO % 7.5 % (2.0-8.0); NEUTROPHILS % 67.8 % (36.0-66.0); PLATELET COUNT, AUTOMATED 337 10^3/uL (150-450); RED BLOOD COUNT 3.56 10^6/uL (4.30-6.10); WHITE BLOOD COUNT 8.8 10^3/uL (4.0-10.0)
[2024-01-30] MEDS: NS 500 ML IV ONE (14:39)
[2024-01-30] MEDS: BOOSTRIX VACCINE (TETANUS/DIPHTH/ACEL. PERTUSSIS) 0.5ML SYR IM.IMMUN ONE (14:40)
[2024-01-30] MEDS: FOLIC ACID 1MG TAB PO SCH (14:40)
[2024-01-30] MEDS: MULTIVITAMINS/MINERALS THERAP 1 TAB PO SCH (14:40)
[2024-01-30 14:41] LABS: ETHYL ALCOHOL (ETHANOL) < 0.003 % (0.000-0.010)
[2024-01-30 14:43] LABS: ALBUMIN 2.4 G/DL (3.2-5.2); ALKALINE PHOSPHATASE 219 U/L (46-116); ALT/SGPT 30 U/L (7.0-40); AST/SGOT 63 U/L (<34); BILIRUBIN,DIRECT 0.2 MG/DL (<0.4); BILIRUBIN,TOTAL 0.4 MG/DL (0.3-1.2); BLOOD UREA NITROGEN 6 MG/DL (9-23); CALCIUM LEVEL 8.1 MG/DL (8.3-10.6); CARBON DIOXIDE LEVEL 22 MMOL/L (20-31); CHLORIDE LEVEL 103 MMOL/L (98-107); CREATININE FOR GFR 0.78 MG/DL (0.70-1.30); GLOMERULAR FILTRATION RATE > 60.0 (>42); GLUCOSE, FASTING 107 MG/DL (74-106); MAGNESIUM LEVEL 1.7 MG/DL (1.8-2.4); POTASSIUM SERUM 3.2 MMOL/L (3.5-5.1); SODIUM LEVEL 136 MMOL/L (136-145); TOTAL PROTEIN 6.4 G/DL (5.7-8.2)
[2024-01-30] MEDS: POTASSIUM CHLORIDE 10MEQ SR TABLET PO ONE (16:54)
[2024-01-30] MEDS: NS 1,000 ML IV ONE (16:54)
[2024-01-30] MEDS ORDERED: RISATAB3 PO (17:37)
[2024-01-30] MEDS ORDERED: PEPT262C2 PO (17:37)
[2024-01-30] MEDS ORDERED: POTA-298 PO (17:37)
[2024-01-30] MEDS ORDERED: MULT-90 PO (17:37)
[2024-01-30] MEDS ORDERED: HOME MED LIST COMPLETE! XX SCH (17:40)
[2024-01-30] MEDS ORDERED: LORazepam 2 MG/ML 1ML VIAL IV PRN (17:40)
[2024-01-30 17:45] LABS: C REACTIVE PROTEIN QUANTITATIV 9.3 MG/DL (<1.0); CK-MB VALUE MASS 2.1 NG/ML (<3.6); MAGNESIUM LEVEL 1.6 MG/DL (1.8-2.4)
[2024-01-30 17:46] LABS: MB/CK RELATIVE INDEX 2.83 (< OR =4)
[2024-01-30 17:59] LABS: PROCALCITONIN 0.15 ng/ml
[2024-01-30 18:21] LABS: AMPHETAMINES LEVEL URINE NEGATIVE (NEGATIVE); BARBITURATES URINE NEGATIVE (NEGATIVE); BENZODIAZEPINES URINE NEGATIVE (NEGATIVE); CANNABINOIDS URINE NEGATIVE (NEGATIVE); COCAINE METABOLITE URINE NEGATIVE (NEGATIVE); METHADONE URINE NEGATIVE (NEGATIVE); OPIATES URINE NEGATIVE (NEGATIVE); PHENCYCLIDINE URINE NEGATIVE (NEGATIVE)
[2024-01-30 20:20] VITALS: BP 141/85; TEMP 98.2; O2SAT 99
[2024-01-30] MEDS ORDERED: THIAMINE 100 MG TAB PO SCH (21:00)
[2024-01-30] MEDS ORDERED: levETIRAcetam INJection 750 MG in D5W 100 ML IV SCH (21:00)
[2024-01-30] MEDS: levETIRAcetam INJection 750 MG in D5W 100 ML IV SCH (21:25)
[2024-01-31] VITALS (8 sets, daily range): BP systolic 116–150; BP diastolic 67–89; TEMP 97.1–97.8; O2SAT 97–99
[2024-01-31 08:30] LABS: BLOOD UREA NITROGEN 5 MG/DL (9-23); CALCIUM LEVEL 7.6 MG/DL (8.3-10.6); CARBON DIOXIDE LEVEL 24 MMOL/L (20-31); CHLORIDE LEVEL 108 MMOL/L (98-107); CREATININE FOR GFR 0.77 MG/DL (0.70-1.30); GLOMERULAR FILTRATION RATE > 60.0 (>42); GLUCOSE, FASTING 83 MG/DL (74-106); MAGNESIUM LEVEL 1.6 MG/DL (1.8-2.4); POTASSIUM SERUM 3.1 MMOL/L (3.5-5.1); SODIUM LEVEL 139 MMOL/L (136-145)
[2024-01-31] MEDS: PANTOPRAZOLE 40MG TAB (PROTONIX) PO SCH (10:34)
[2024-01-31] MEDS: TAMSULOSIN 0.4 MG CAP PO SCH (10:35)
[2024-01-31] MEDS: FOLIC ACID 1MG TAB PO SCH (10:35)
[2024-01-31] MEDS: THIAMINE 100 MG TAB PO SCH (10:36)
[2024-01-31] MEDS: MULTIVITAMINS/MINERALS THERAP 1 TAB PO SCH (10:36)
[2024-01-31] MEDS: MAG SULF 1GM/100ML (MAG RUN) 1 GM in IV 1 EA IV SCH (12:17)
[2024-01-31] MEDS: POTASSIUM CHLORIDE 10MEQ SR TABLET PO ONE (12:27)
[2024-01-31] MEDS: KCL 10MEQ/100ML SWI (KRUN) 10 MEQ in IV 1 EA IV SCH (14:40)
[2024-01-31 18:29] LABS: BLOOD UREA NITROGEN 5 MG/DL (9-23); CALCIUM LEVEL 7.7 MG/DL (8.3-10.6); CARBON DIOXIDE LEVEL 24 MMOL/L (20-31); CHLORIDE LEVEL 108 MMOL/L (98-107); CREATININE FOR GFR 0.68 MG/DL (0.70-1.30); GLOMERULAR FILTRATION RATE > 60.0 (>42); GLUCOSE, FASTING 116 MG/DL (74-106); POTASSIUM SERUM 3.5 MMOL/L (3.5-5.1); SODIUM LEVEL 138 MMOL/L (136-145)
[2024-01-31] MEDS: CEFDINIR 300 MG CAP (OMNICEF) PO SCH (20:39)
[2024-02-01] VITALS (7 sets, daily range): BP systolic 117–145; BP diastolic 71–96; TEMP 97.1–98.8; O2SAT 94–100
[2024-02-01 05:58] LABS: BLOOD UREA NITROGEN 5 MG/DL (9-23); CALCIUM LEVEL 7.7 MG/DL (8.3-10.6); CARBON DIOXIDE LEVEL 22 MMOL/L (20-31); CHLORIDE LEVEL 109 MMOL/L (98-107); CREATININE FOR GFR 0.79 MG/DL (0.70-1.30); GLOMERULAR FILTRATION RATE > 60.0 (>42); GLUCOSE, FASTING 123 MG/DL (74-106); MAGNESIUM LEVEL 1.6 MG/DL (1.8-2.4); POTASSIUM SERUM 3.4 MMOL/L (3.5-5.1); SODIUM LEVEL 140 MMOL/L (136-145)
[2024-02-01] MEDS: MAG SULF 1GM/100ML (MAG RUN) 1 GM in IV 1 EA IV SCH (07:23)
[2024-02-01] MEDS: POTASSIUM CHLORIDE 10MEQ SR TABLET PO SCH (10:36)
[2024-02-01] MEDS: MAGNESIUM OXIDE 400MG TAB (MAG-OX) PO SCH (10:37)
[2024-02-01] MEDS: KCL 10MEQ/100ML SWI (KRUN) 10 MEQ in IV 1 EA IV SCH (10:52)
[2024-02-01] MEDS ORDERED: MEROPENEM INJ 2 GM in NS 100 ML IV SCH (19:30)
[2024-02-01] MEDS: MEROPENEM INJ 1 GM in IV 1 EA IV SCH ×2 (21:00→21:35)
[2024-02-01] MEDS ORDERED: ERTAPENEM SODIUM 1 GM in NS MINI-BAG PLUS 50 ML IV SCH (21:00)
[2024-02-01] MEDS: levETIRAcetam 250MG TABLET (KEPPRA) PO SCH (21:00)
[2024-02-02 03:43] VITALS: BP 119/71; TEMP 98.2; O2SAT 97
[2024-02-02 05:31] LABS: BLOOD UREA NITROGEN 6 MG/DL (9-23); CALCIUM LEVEL 7.7 MG/DL (8.3-10.6); CARBON DIOXIDE LEVEL 22 MMOL/L (20-31); CHLORIDE LEVEL 109 MMOL/L (98-107); CREATININE FOR GFR 0.79 MG/DL (0.70-1.30); GLOMERULAR FILTRATION RATE > 60.0 (>42); GLUCOSE, FASTING 170 MG/DL (74-106); MAGNESIUM LEVEL 1.6 MG/DL (1.8-2.4); POTASSIUM SERUM 3.2 MMOL/L (3.5-5.1); SODIUM LEVEL 140 MMOL/L (136-145)
[2024-02-02] MEDS: KCL 10MEQ/100ML SWI (KRUN) 10 MEQ in IV 1 EA IV SCH ×2 (06:23→10:04)
[2024-02-02] MEDS: MAGNESIUM OXIDE 400MG TAB (MAG-OX) PO ONE (06:23)
[2024-02-02] MEDS: POTASSIUM CHLORIDE 10% LIQ 20MEQ/15ML UDC PO ONE (06:23)
[2024-02-02 07:47] VITALS: BP 116/67; TEMP 97.7; O2SAT 98
[2024-02-02 12:56] VITALS: BP 110/76; TEMP 97; O2SAT 100
[2024-02-02 15:50] LABS: BLOOD UREA NITROGEN < 5 MG/DL (9-23); CARBON DIOXIDE LEVEL 22 MMOL/L (20-31); CHLORIDE LEVEL 106 MMOL/L (98-107); CREATININE FOR GFR 0.74 MG/DL (0.70-1.30); GLOMERULAR FILTRATION RATE > 60.0 (>42); GLUCOSE, FASTING 85 MG/DL (74-106); POTASSIUM SERUM 4.1 MMOL/L (3.5-5.1); SODIUM LEVEL 135 MMOL/L (136-145)
[2024-02-02] MEDS: MAG SULF 1GM/100ML (MAG RUN) 1 GM in IV 1 EA IV SCH (15:52)
[2024-02-02 16:00] VITALS: BP 133/89; TEMP 98; O2SAT 100
[2024-02-02 19:00] VITALS: BP 120/76; TEMP 97.9; O2SAT 99
[2024-02-02 23:10] VITALS: BP 107/65; TEMP 97.8; O2SAT 99
[2024-02-03 04:00] VITALS: BP 112/79; TEMP 97.8; O2SAT 99
[2024-02-03 05:56] LABS: BLOOD UREA NITROGEN < 5 MG/DL (9-23); CALCIUM LEVEL 8.1 MG/DL (8.3-10.6); CARBON DIOXIDE LEVEL 23 MMOL/L (20-31); CHLORIDE LEVEL 107 MMOL/L (98-107); CREATININE FOR GFR 0.71 MG/DL (0.70-1.30); GLOMERULAR FILTRATION RATE > 60.0 (>42); GLUCOSE, FASTING 121 MG/DL (74-106); MAGNESIUM LEVEL 1.8 MG/DL (1.8-2.4); POTASSIUM SERUM 3.6 MMOL/L (3.5-5.1); SODIUM LEVEL 137 MMOL/L (136-145)
[2024-02-03] MEDS ORDERED: MAGN400T2 PO (06:51)
[2024-02-03] MEDS ORDERED: POTA-136 PO (06:51)
[2024-02-03] MEDS ORDERED: KEPP250T5 PO (06:51)
[2024-02-03 10:33] VITALS: BP 117/75; TEMP 97.5; O2SAT 95
== END 2024-02-03 14:03 | disposition home or self-care (01) | DRG 101 ==
LOC: M ED 13:40 → M ED INP 16:42 → M PCU 20:37
PROVIDERS: ADMIT General Practice; ATTEND Student in an Organized Health Care Education/Training Program
DX: G40.909 Epilepsy, unspecified, not intractable, without status epilepticus (principal); N39.0 Urinary tract infection, site not specified; E87.20 Acidosis, unspecified; S00.81XA Abrasion of other part of head, initial encounter; D64.9 Anemia, unspecified; E87.6 Hypokalemia; S80.02XA Contusion of left knee, initial encounter; E83.42 Hypomagnesemia; W19.XXXA Unspecified fall, initial encounter; F10.10 Alcohol abuse, uncomplicated; Z91.148 Patient's other noncompliance with medication regimen for other reason; F32.A Depression, unspecified; Z79.899 Other long term (current) drug therapy; N40.0 Benign prostatic hyperplasia without lower urinary tract symptoms; F41.9 Anxiety disorder, unspecified; Y92.009 Unspecified place in unspecified non-institutional (private) residence as the place of occurrence of the external cause; F17.200 Nicotine dependence, unspecified, uncomplicated; B96.1 Klebsiella pneumoniae [K. pneumoniae] as the cause of diseases classified elsewhere

== ENCOUNTER → 2024-02-16 | Outpatient (REF) | payer MEDICARE, MEDICAID ==
[~2024-02-16] MED LIST changes: +KEPP250T5 PO; +MULT-90 PO; +POTA-136 PO; +POTA-298 PO
[2024-02-16 17:53] LABS: ALBUMIN 2.7 G/DL (3.2-5.2); ALKALINE PHOSPHATASE 193 U/L (46-116); ALT/SGPT 14 U/L (7.0-40); AST/SGOT 28 U/L (<34); BILIRUBIN,TOTAL 0.7 MG/DL (0.3-1.2); BLOOD UREA NITROGEN 6 MG/DL (9-23); CALCIUM LEVEL 8.6 MG/DL (8.3-10.6); CARBON DIOXIDE LEVEL 24 MMOL/L (20-31); CHLORIDE LEVEL 101 MMOL/L (98-107); CREATININE FOR GFR 0.77 MG/DL (0.70-1.30); GLOMERULAR FILTRATION RATE > 60.0 (>42); GLUCOSE, FASTING 91 MG/DL (74-106); POTASSIUM SERUM 3.5 MMOL/L (3.5-5.1); SODIUM LEVEL 134 MMOL/L (136-145); TOTAL PROTEIN 6.9 G/DL (5.7-8.2)
== END ==
LOC: M LAB REF 16:39
PROVIDERS: ATTEND Family Medicine Addiction Medicine
DX: E87.6 Hypokalemia (principal)

== ENCOUNTER 2024-03-14 14:15 | Inpatient (IN) | payer MEDICARE, MEDICAID ==
[~2024-03-14] VITALS: Ht 162.6 cm; Wt 72.0 kg
[2024-03-14] MEDS: NS 1,000 ML IV ONE (15:54)
[2024-03-14] MEDS: levETIRAcetam INJection 1,000 MG in D5W 100 ML IV ONE (15:54)
[2024-03-14 16:01] LABS: BASO # 0.1 10^3/uL (0.0-0.2); BASO % 0.7 % (0.0-1.0); EOS # 0.3 10^3/uL (0.0-0.5); EOS % 2.7 % (0.0-3.0); HEMATOCRIT 39.6 % (42.0-52.0); LYMPH # 2.2 10^3/uL (1.5-5.0); LYMPH % 18.4 % (24.0-44.0); MEAN CORPUSCULAR HEMOGLOBIN 30.4 pg (27.0-33.0); MEAN CORPUSCULAR HGB CONC 35.4 g/dl (32.0-36.5); MEAN CORPUSCULAR VOLUME 86.1 fl (80.0-96.0); MONO # 0.9 10^3/uL (0.0-0.8); MONO % 7.7 % (2.0-8.0); NEUTROPHILS # 8.4 10^3/uL (1.5-8.5); NEUTROPHILS % 69.8 % (36.0-66.0); PLATELET COUNT, AUTOMATED 312 10^3/uL (150-450)
[2024-03-14 16:30] LABS: CK-MB VALUE MASS 1.1 NG/ML (<3.6); ETHYL ALCOHOL (ETHANOL) 0.004 % (0.000-0.010)
[2024-03-14 16:32] LABS: CPK CREATINE PHOSPHOKINASE 60 U/L (46-171); MB/CK RELATIVE INDEX 1.83 (< OR =4); SALICYLATE LEVEL < 3.0 MG/DL (<30)
[2024-03-14 16:36] LABS: ALBUMIN 2.8 G/DL (3.2-5.2); ALKALINE PHOSPHATASE 268 U/L (46-116); ALT/SGPT 32 U/L (7.0-40); AST/SGOT 61 U/L (<34); BILIRUBIN,DIRECT 0.4 MG/DL (<0.4); BILIRUBIN,TOTAL 0.7 MG/DL (0.3-1.2); BLOOD UREA NITROGEN 7 MG/DL (9-23); CALCIUM LEVEL 7.7 MG/DL (8.3-10.6); CARBON DIOXIDE LEVEL 26 MMOL/L (20-31); CHLORIDE LEVEL 95 MMOL/L (98-107); GLOMERULAR FILTRATION RATE > 60.0 (>42); GLUCOSE, FASTING 80 MG/DL (74-106); MAGNESIUM LEVEL 1.1 MG/DL (1.8-2.4); POTASSIUM SERUM 2.5 MMOL/L (3.5-5.1); SODIUM LEVEL 132 MMOL/L (136-145); THYROID STIMULATING HORMONE 1.334 uIU/ML (0.55-4.78); TOTAL PROTEIN 7.6 G/DL (5.7-8.2)
[2024-03-14] MEDS ORDERED: LEVE250T5 PO (16:46)
[2024-03-14] MEDS ORDERED: HOME MED LIST COMPLETE! XX SCH (16:50)
[2024-03-14] MEDS: POTASSIUM CHLORIDE 10MEQ SR TABLET PO ONE (17:16)
[2024-03-14] MEDS: KCL 10MEQ/100ML SWI (KRUN) 10 MEQ in IV 1 EA IV ONE ×2 (17:17→19:27)
[2024-03-14 17:34] LABS: CK-MB VALUE MASS < 1.0 NG/ML (<3.6)
[2024-03-14 17:37] LABS: CPK CREATINE PHOSPHOKINASE 41 U/L (46-171); MB/CK RELATIVE INDEX 2.43 (< OR =4)
[2024-03-14 17:43] LABS: AMPHETAMINES LEVEL URINE NEGATIVE (NEGATIVE)
[2024-03-14 17:44] LABS: BARBITURATES URINE NEGATIVE (NEGATIVE); BENZODIAZEPINES URINE NEGATIVE (NEGATIVE); CANNABINOIDS URINE NEGATIVE (NEGATIVE); COCAINE METABOLITE URINE NEGATIVE (NEGATIVE); METHADONE URINE NEGATIVE (NEGATIVE); OPIATES URINE NEGATIVE (NEGATIVE); PHENCYCLIDINE URINE NEGATIVE (NEGATIVE)
[2024-03-14] MEDS: MEROPENEM INJ 1 GM in IV 1 EA IV ONE (18:29)
[2024-03-14] MEDS: MAG SULF 1GM/100ML (MAG RUN) 1 GM in IV 1 EA IV ONE ×2 (18:29→19:26)
[2024-03-14] MEDS ORDERED: LORazepam 2 MG TAB PO PRN (18:30)
[2024-03-14] MEDS: NS 1,000 ML IV SCH (19:27)
[2024-03-14] MEDS: THIAMINE 100 MG TAB PO SCH (19:28)
[2024-03-14] MEDS ORDERED: cefTRIAXone SOD 2 GM in D5W MINI-BAG PLUS 50 ML IV SCH (20:00)
[2024-03-14] MEDS: TAMSULOSIN 0.4 MG CAP PO SCH (21:26)
[2024-03-14 21:32] LABS: BLOOD UREA NITROGEN 7 MG/DL (9-23); CARBON DIOXIDE LEVEL 24 MMOL/L (20-31); CHLORIDE LEVEL 100 MMOL/L (98-107); CREATININE FOR GFR 0.87 MG/DL (0.70-1.30); GLOMERULAR FILTRATION RATE > 60.0 (>42); GLUCOSE, FASTING 100 MG/DL (74-106); POTASSIUM SERUM 2.6 MMOL/L (3.5-5.1); SODIUM LEVEL 133 MMOL/L (136-145)
[2024-03-14] MEDS: KCL 40MEQ in NS 1000ML 1,000 ML IV SCH (21:57)
[2024-03-14 22:08] LABS: MAGNESIUM LEVEL 1.6 MG/DL (1.8-2.4)
[2024-03-14 22:18] VITALS: BP 96/69; TEMP 97; O2SAT 98
[2024-03-14 23:54] VITALS: BP 97/70; TEMP 96.7; O2SAT 99
[2024-03-15] VITALS (8 sets, daily range): BP systolic 92–108; BP diastolic 53–70; TEMP 96.8–98.2; O2SAT 97–100
[2024-03-15] MEDS: MEROPENEM INJ 1 GM in IV 1 EA IV SCH (02:57)
[2024-03-15] MEDS ORDERED: levETIRAcetam INJection 1,000 MG in D5W 100 ML IV SCH (04:00)
[2024-03-15 06:01] LABS: BLOOD UREA NITROGEN 8 MG/DL (9-23); CALCIUM LEVEL 7.4 MG/DL (8.3-10.6); CARBON DIOXIDE LEVEL 25 MMOL/L (20-31); CHLORIDE LEVEL 105 MMOL/L (98-107); CREATININE FOR GFR 0.81 MG/DL (0.70-1.30); GLOMERULAR FILTRATION RATE > 60.0 (>42); GLUCOSE, FASTING 88 MG/DL (74-106); MAGNESIUM LEVEL 1.6 MG/DL (1.8-2.4); SODIUM LEVEL 138 MMOL/L (136-145)
[2024-03-15] MEDS: levETIRAcetam 250MG TABLET (KEPPRA) PO SCH (06:42)
[2024-03-15] MEDS: ENOXAPARIN 40MG/0.4ML SYRINGE (J1650 PER 10MG) SC SCH (09:00)
[2024-03-15] MEDS: PANTOPRAZOLE 40MG TAB (PROTONIX) PO SCH (09:00)
[2024-03-15] MEDS: FOLIC ACID 1MG TAB PO SCH (09:00)
[2024-03-15] MEDS: POTASSIUM CHLORIDE 10MEQ SR TABLET PO SCH ×2 (09:00→21:12)
[2024-03-15] MEDS: MULTIVITAMINS/MINERALS THERAP 1 TAB PO SCH (09:00)
[2024-03-15] MEDS: MAG SULF 1GM/100ML (MAG RUN) 1 GM in IV 1 EA IV SCH ×2 (09:30→14:55)
[2024-03-15] MEDS: KCL 10MEQ/100ML SWI (KRUN) 10 MEQ in IV 1 EA IV SCH (14:07)
[2024-03-15 14:31] LABS: PROCALCITONIN 0.12 ng/ml
[2024-03-15 14:35] LABS: BLOOD UREA NITROGEN 7 MG/DL (9-23); CALCIUM LEVEL 7.2 MG/DL (8.3-10.6); CARBON DIOXIDE LEVEL 26 MMOL/L (20-31); CHLORIDE LEVEL 105 MMOL/L (98-107); CREATININE FOR GFR 0.73 MG/DL (0.70-1.30); GLOMERULAR FILTRATION RATE > 60.0 (>42); GLUCOSE, FASTING 91 MG/DL (74-106); POTASSIUM SERUM 2.9 MMOL/L (3.5-5.1); SODIUM LEVEL 135 MMOL/L (136-145)
[2024-03-16 03:34] VITALS: BP 106/63; TEMP 98.2; O2SAT 97
[2024-03-16 05:54] LABS: BLOOD UREA NITROGEN 6 MG/DL (9-23); CALCIUM LEVEL 6.8 MG/DL (8.3-10.6); CARBON DIOXIDE LEVEL 24 MMOL/L (20-31); CHLORIDE LEVEL 108 MMOL/L (98-107); GLOMERULAR FILTRATION RATE > 60.0 (>42); GLUCOSE, FASTING 86 MG/DL (74-106); MAGNESIUM LEVEL 1.8 MG/DL (1.8-2.4); POTASSIUM SERUM 3.4 MMOL/L (3.5-5.1); SODIUM LEVEL 136 MMOL/L (136-145)
[2024-03-16 08:00] VITALS: BP 105/65; TEMP 97.1; O2SAT 100
[2024-03-16] MEDS: KCL 10MEQ/100ML SWI (KRUN) 10 MEQ in IV 1 EA IV SCH (08:21)
[2024-03-16 12:00] VITALS: BP 98/58; TEMP 97.6; O2SAT 98
[2024-03-16 14:00] VITALS: BP 95/61; TEMP 97; O2SAT 99
[2024-03-16] MEDS: CEFEPIME HCL 2 GM in D5W MINI-BAG PLUS 50 ML IV SCH (18:36)
[2024-03-16 19:59] VITALS: BP 96/64; TEMP 98.5; O2SAT 98
[2024-03-17 03:36] VITALS: BP 94/60; TEMP 98; O2SAT 98
[2024-03-17 06:02] LABS: BLOOD UREA NITROGEN 5 MG/DL (9-23); CALCIUM LEVEL 7.3 MG/DL (8.3-10.6); CARBON DIOXIDE LEVEL 22 MMOL/L (20-31); CHLORIDE LEVEL 107 MMOL/L (98-107); CREATININE FOR GFR 0.72 MG/DL (0.70-1.30); GLOMERULAR FILTRATION RATE > 60.0 (>42); GLUCOSE, FASTING 90 MG/DL (74-106); MAGNESIUM LEVEL 1.4 MG/DL (1.8-2.4); POTASSIUM SERUM 3.5 MMOL/L (3.5-5.1); SODIUM LEVEL 135 MMOL/L (136-145)
[2024-03-17 08:18] VITALS: BP 90/63; TEMP 97.2; O2SAT 99
[2024-03-17] MEDS: NS 1,000 ML IV ONE (08:59)
[2024-03-17] MEDS: MAGNESIUM OXIDE 400MG TAB (MAG-OX) PO SCH (09:00)
[2024-03-17] MEDS ORDERED: PILL CUTTER 1 EACH XX ONE (09:08)
[2024-03-17] MEDS: MAG SULF 1GM/100ML (MAG RUN) 1 GM in IV 1 EA IV SCH ×2 (10:35→13:00)
[2024-03-17] MEDS: MAG SULF 1GM/100ML (MAG RUN) 1 GM in IV 1 EA IV ONE (14:34)
[2024-03-17 16:13] VITALS: BP 107/69; TEMP 98; O2SAT 100
[2024-03-17] MEDS: LACTOBACILLUS ACIDOPHILUS CAP (BACID) PO SCH (17:58)
[2024-03-17 19:23] VITALS: BP 95/61; TEMP 97.7; O2SAT 99
[2024-03-17 22:28] VITALS: BP 104/69; TEMP 98.8; O2SAT 96
[2024-03-18] VITALS (8 sets, daily range): BP systolic 95–137; BP diastolic 61–85; TEMP 97.3–99; O2SAT 91–98
[2024-03-18 06:31] LABS: BASO # 0.1 10^3/uL (0.0-0.2); EOS # 0.4 10^3/uL (0.0-0.5); EOS % 4.3 % (0.0-3.0); HEMATOCRIT 31.2 % (42.0-52.0); HEMOGLOBIN 10.4 g/dl (13.5-17.5); LYMPH # 1.9 10^3/uL (1.5-5.0); LYMPH % 21.3 % (24.0-44.0); MEAN CORPUSCULAR HEMOGLOBIN 30.1 pg (27.0-33.0); MEAN CORPUSCULAR HGB CONC 33.3 g/dl (32.0-36.5); MEAN CORPUSCULAR VOLUME 90.4 fl (80.0-96.0); MONO # 0.7 10^3/uL (0.0-0.8); MONO % 7.4 % (2.0-8.0); NEUTROPHILS # 5.8 10^3/uL (1.5-8.5); NEUTROPHILS % 64.9 % (36.0-66.0); PLATELET COUNT, AUTOMATED 300 10^3/uL (150-450); RED BLOOD COUNT 3.45 10^6/uL (4.30-6.10)
[2024-03-18 06:47] LABS: BLOOD UREA NITROGEN 6 MG/DL (9-23); CALCIUM LEVEL 7.4 MG/DL (8.3-10.6); CARBON DIOXIDE LEVEL 22 MMOL/L (20-31); CHLORIDE LEVEL 107 MMOL/L (98-107); CREATININE FOR GFR 0.68 MG/DL (0.70-1.30); GLOMERULAR FILTRATION RATE > 60.0 (>42); GLUCOSE, FASTING 89 MG/DL (74-106); MAGNESIUM LEVEL 1.7 MG/DL (1.8-2.4); POTASSIUM SERUM 4.2 MMOL/L (3.5-5.1); SODIUM LEVEL 134 MMOL/L (136-145)
[2024-03-18] MEDS: MAG SULF 1GM/100ML (MAG RUN) 1 GM in IV 1 EA IV SCH (09:06)
[2024-03-19] VITALS (9 sets, daily range): BP systolic 96–115; BP diastolic 53–78; TEMP 97.9–98.6; O2SAT 95–99
[2024-03-19 06:33] LABS: BLOOD UREA NITROGEN 8 MG/DL (9-23); CALCIUM LEVEL 8.1 MG/DL (8.3-10.6); CARBON DIOXIDE LEVEL 24 MMOL/L (20-31); CHLORIDE LEVEL 107 MMOL/L (98-107); CREATININE FOR GFR 0.67 MG/DL (0.70-1.30); GLOMERULAR FILTRATION RATE > 60.0 (>42); GLUCOSE, FASTING 82 MG/DL (74-106); MAGNESIUM LEVEL 1.7 MG/DL (1.8-2.4); SODIUM LEVEL 133 MMOL/L (136-145)
[2024-03-19] MEDS: MAG SULF 1GM/100ML (MAG RUN) 1 GM in IV 1 EA IV SCH (09:39)
[2024-03-19] MEDS ORDERED: METOCLOPRAMIDE INJ 10MG/2ML VIAL IV PRN (17:55)
[2024-03-20 03:10] VITALS: BP 96/75; TEMP 97.9; O2SAT 97
[2024-03-20 07:21] LABS: BLOOD UREA NITROGEN 8 MG/DL (9-23); CALCIUM LEVEL 8.1 MG/DL (8.3-10.6); CARBON DIOXIDE LEVEL 25 MMOL/L (20-31); CHLORIDE LEVEL 104 MMOL/L (98-107); CREATININE FOR GFR 0.63 MG/DL (0.70-1.30); GLOMERULAR FILTRATION RATE > 60.0 (>42); GLUCOSE, FASTING 81 MG/DL (74-106); MAGNESIUM LEVEL 1.8 MG/DL (1.8-2.4); POTASSIUM SERUM 5.5 MMOL/L (3.5-5.1); SODIUM LEVEL 133 MMOL/L (136-145)
[2024-03-20 08:00] VITALS: BP 97/73; TEMP 98.2; O2SAT 94
[2024-03-20] MEDS: MAG SULF 1GM/100ML (MAG RUN) 1 GM in IV 1 EA IV SCH (09:40)
[2024-03-20] MEDS ORDERED: PATIROMER SORBITEX CALCIUM 8.4 GM POWDER PACKET (VELTASSA) PO ONE (09:55)
[2024-03-20] MEDS: PATIROMER SORBITEX CALCIUM 8.4 GM POWDER PACKET (VELTASSA) PO ONE (10:51)
[2024-03-20 12:00] VITALS: BP 96/69; TEMP 97; O2SAT 97
[2024-03-20] MEDS: CEFEPIME HCL 2 GM in D5W MINI-BAG PLUS 50 ML IV SCH (13:11)
[2024-03-20] MEDS ORDERED: MAGN400T2 PO (13:28)
[2024-03-20 14:52] LABS: BLOOD UREA NITROGEN 9 MG/DL (9-23); CALCIUM LEVEL 8.2 MG/DL (8.3-10.6); CARBON DIOXIDE LEVEL 26 MMOL/L (20-31); CHLORIDE LEVEL 101 MMOL/L (98-107); CREATININE FOR GFR 0.77 MG/DL (0.70-1.30); GLOMERULAR FILTRATION RATE > 60.0 (>42); GLUCOSE, FASTING 90 MG/DL (74-106); POTASSIUM SERUM 5.2 MMOL/L (3.5-5.1); SODIUM LEVEL 131 MMOL/L (136-145)
[2024-03-20 16:00] VITALS: BP 100/68; TEMP 97.7; O2SAT 96
[2024-03-20 17:55] LABS: BLOOD UREA NITROGEN 9 MG/DL (9-23); CALCIUM LEVEL 8.6 MG/DL (8.3-10.6); CARBON DIOXIDE LEVEL 26 MMOL/L (20-31); CHLORIDE LEVEL 100 MMOL/L (98-107); CREATININE FOR GFR 0.74 MG/DL (0.70-1.30); GLOMERULAR FILTRATION RATE > 60.0 (>42); GLUCOSE, FASTING 95 MG/DL (74-106); POTASSIUM SERUM 5.1 MMOL/L (3.5-5.1); SODIUM LEVEL 129 MMOL/L (136-145)
[2024-03-20 20:00] VITALS: BP 148/80; TEMP 97.7; O2SAT 97
[2024-03-21] VITALS: BP 105/70; TEMP 98.4; O2SAT 95
[2024-03-21 04:30] VITALS: BP 100/78; TEMP 97.5; O2SAT 95
[2024-03-21 07:01] LABS: BLOOD UREA NITROGEN 9 MG/DL (9-23); CALCIUM LEVEL 8.6 MG/DL (8.3-10.6); CARBON DIOXIDE LEVEL 25 MMOL/L (20-31); CHLORIDE LEVEL 102 MMOL/L (98-107); CREATININE FOR GFR 0.74 MG/DL (0.70-1.30); GLOMERULAR FILTRATION RATE > 60.0 (>42); GLUCOSE, FASTING 116 MG/DL (74-106); POTASSIUM SERUM 4.1 MMOL/L (3.5-5.1); SODIUM LEVEL 133 MMOL/L (136-145)
[2024-03-21 08:07] VITALS: BP 88/60; TEMP 97.5; O2SAT 96
== END 2024-03-21 12:41 | disposition home or self-care (01) | DRG 100 ==
LOC: EDBD 14:15 → M ED 14:15 → M ED INP 18:08 → M PCU 22:11 → M MSPAV 03-17 22:27
PROVIDERS: ADMIT Student in an Organized Health Care Education/Training Program; ATTEND Hospitalist
DX: G40.909 Epilepsy, unspecified, not intractable, without status epilepticus (principal); G93.41 Metabolic encephalopathy; N39.0 Urinary tract infection, site not specified; E87.1 Hypo-osmolality and hyponatremia; E87.20 Acidosis, unspecified; E83.42 Hypomagnesemia; F32.A Depression, unspecified; F10.229 Alcohol dependence with intoxication, unspecified; E87.6 Hypokalemia; I10 Essential (primary) hypertension; B96.1 Klebsiella pneumoniae [K. pneumoniae] as the cause of diseases classified elsewhere; Z91.148 Patient's other noncompliance with medication regimen for other reason

== ENCOUNTER 2024-11-05 16:14 | Emergency (ER) | payer MEDICARE, MEDICAID ==
[~2024-11-05 16:14] MED LIST changes: -DOXY-323 PO; +DOXY-441 PO; +LEVE250T5 PO
[2024-11-05] MEDS: LIDOCAINE W/EPINEPHRINE 1% 20ML VIAL SC ONE (17:00)
[2024-11-05] MEDS ORDERED: LORazepam 2 MG/ML 1ML VIAL IV PRN (17:00)
[2024-11-05 17:54] LABS: BASO # 0.1 10^3/uL (0.0-0.2); BASO % 0.8 % (0.0-1.0); EOS # 0.5 10^3/uL (0.0-0.5); EOS % 5.4 % (0.0-3.0); HEMATOCRIT 45.9 % (42.0-52.0); HEMOGLOBIN 15.2 g/dl (13.5-17.5); LYMPH # 2.2 10^3/uL (1.5-5.0); MEAN CORPUSCULAR HEMOGLOBIN 31.5 pg (27.0-33.0); MEAN CORPUSCULAR HGB CONC 33.1 g/dl (32.0-36.5); MONO # 0.7 10^3/uL (0.0-0.8); MONO % 7.8 % (2.0-8.0); NEUTROPHILS % 59.9 % (36.0-66.0); PLATELET COUNT, AUTOMATED 298 10^3/uL (150-450); RED BLOOD COUNT 4.83 10^6/uL (4.30-6.10); WHITE BLOOD COUNT 8.4 10^3/uL (4.0-10.0)
[2024-11-05] MEDS: levETIRAcetam INJection 1,000 MG in IV 1 EA IV ONE (18:02)
[2024-11-05 18:12] LABS: ETHYL ALCOHOL (ETHANOL) 0.273 % (0.000-0.010)
[2024-11-05 18:15] LABS: ALBUMIN 3.7 G/DL (3.2-5.2); ALKALINE PHOSPHATASE 131 U/L (40-129); ALT/SGPT 28 U/L (7.0-40); AST/SGOT 39 U/L (<34); BILIRUBIN,DIRECT 0.1 MG/DL (<0.4); BILIRUBIN,TOTAL 0.2 MG/DL (0.3-1.2); BLOOD UREA NITROGEN < 5 MG/DL (9-23); CALCIUM LEVEL 9.1 MG/DL (8.3-10.6); CARBON DIOXIDE LEVEL 24 MMOL/L (20-31); CHLORIDE LEVEL 109 MMOL/L (98-107); CREATININE FOR GFR 0.77 MG/DL (0.70-1.30); GLOMERULAR FILTRATION RATE > 60.0 (>42); GLUCOSE, FASTING 75 MG/DL (74-106); MAGNESIUM LEVEL 2.1 MG/DL (1.8-2.4); POTASSIUM SERUM 4.4 MMOL/L (3.5-5.1); SODIUM LEVEL 141 MMOL/L (136-145); TOTAL PROTEIN 7.9 G/DL (5.7-8.2)
[2024-11-05 18:45] LABS: AMPHETAMINES LEVEL URINE NEGATIVE (NEGATIVE)
[2024-11-05 18:46] LABS: BARBITURATES URINE NEGATIVE (NEGATIVE); BENZODIAZEPINES URINE NEGATIVE (NEGATIVE); CANNABINOIDS URINE NEGATIVE (NEGATIVE); COCAINE METABOLITE URINE NEGATIVE (NEGATIVE); METHADONE URINE NEGATIVE (NEGATIVE); OPIATES URINE NEGATIVE (NEGATIVE); PHENCYCLIDINE URINE NEGATIVE (NEGATIVE)
[2024-11-05] MEDS ORDERED: LEVE10003 PO (20:29)
[2024-11-05 21:12] VITALS: BP 126/66; TEMP 98; O2SAT 96
== END 2024-11-05 21:11 | disposition home or self-care (01) ==
LOC: M ED 16:14
DX: S01.81XA Laceration without foreign body of other part of head, initial encounter (principal); G40.909 Epilepsy, unspecified, not intractable, without status epilepticus; F10.129 Alcohol abuse with intoxication, unspecified; I10 Essential (primary) hypertension; E78.5 Hyperlipidemia, unspecified; F41.9 Anxiety disorder, unspecified; F32.9 Major depressive disorder, single episode, unspecified; Z79.899 Other long term (current) drug therapy; Y92.009 Unspecified place in unspecified non-institutional (private) residence as the place of occurrence of the external cause; Y93.89 Activity, other specified; Y99.9 Unspecified external cause status
CPT/HCPCS: 12011; 70450; 70486; 72125; 73130; 80048; 80076; 80177; 80307; 82077; 83605; 83735; 85025; 93041; 94760; 96374; 99285; J1953

== ENCOUNTER 2024-11-27 19:28 | Emergency (ER) | payer MEDICARE, MEDICAID ==
[~2024-11-27] VITALS: Ht 175.3 cm; Wt 79.9 kg
[~2024-11-27 19:28] MED LIST changes: -FLOM0.4C39 PO; +LEVE10003 PO; +TAMS-18 PO
[2024-11-27 19:56] VITALS: TEMP 96.8
[2024-11-27 20:52] LABS: BASO % 0.6 % (0.0-1.0); EOS # 0.3 10^3/uL (0.0-0.5); EOS % 4.9 % (0.0-3.0); HEMATOCRIT 37.6 % (42.0-52.0); HEMOGLOBIN 13.5 g/dl (13.5-17.5); LYMPH # 2.7 10^3/uL (1.5-5.0); LYMPH % 42.3 % (24.0-44.0); MEAN CORPUSCULAR HEMOGLOBIN 32.7 pg (27.0-33.0); MEAN CORPUSCULAR HGB CONC 35.9 g/dl (32.0-36.5); MONO # 0.5 10^3/uL (0.0-0.8); MONO % 7.4 % (2.0-8.0); NEUTROPHILS # 2.8 10^3/uL (1.5-8.5); NEUTROPHILS % 44.5 % (36.0-66.0); PLATELET COUNT, AUTOMATED 269 10^3/uL (150-450); RED BLOOD COUNT 4.13 10^6/uL (4.30-6.10); WHITE BLOOD COUNT 6.3 10^3/uL (4.0-10.0)
[2024-11-27 21:06] LABS: INR 1.09; PROTHROMBIN TIME 14.4 SECONDS (12.5-14.5)
[2024-11-27 21:20] LABS: ALBUMIN 3.3 G/DL (3.2-5.2); ALKALINE PHOSPHATASE 118 U/L (40-129); ALT/SGPT 30 U/L (7.0-40); AST/SGOT 42 U/L (<34); BILIRUBIN,TOTAL 0.7 MG/DL (0.3-1.2); BLOOD UREA NITROGEN 5 MG/DL (9-23); CALCIUM LEVEL 8.4 MG/DL (8.3-10.6); CARBON DIOXIDE LEVEL 22 MMOL/L (20-31); CHLORIDE LEVEL 97 MMOL/L (98-107); CREATININE FOR GFR 0.86 MG/DL (0.70-1.30); GLOMERULAR FILTRATION RATE > 90.0 (>42); GLUCOSE, FASTING 102 MG/DL (74-106); POTASSIUM SERUM 3.9 MMOL/L (3.5-5.1); SODIUM LEVEL 128 MMOL/L (136-145); TOTAL PROTEIN 7.1 G/DL (5.7-8.2)
[2024-11-27 22:51] LABS: KETONE, URINE AUTO RFX NEGATIVE (NEGATIVE); LEUKOCYTE ESTERASE UR AUTO RFX 3+ (NEGATIVE); NITRITE, URINE AUTO RFX NEGATIVE (NEGATIVE); RBC, URINE AUTO RFX 9 /HPF (0-3); SQUAM EPITHELIAL CELL UR AURFX 0 /HPF (0-6); WBC, URINE AUTO RFX 9 /HPF (0-3)
[2024-11-27 23:17] LABS: AMPHETAMINES LEVEL URINE NEGATIVE (NEGATIVE); BARBITURATES URINE NEGATIVE (NEGATIVE)
[2024-11-27 23:18] LABS: BENZODIAZEPINES URINE NEGATIVE (NEGATIVE); CANNABINOIDS URINE NEGATIVE (NEGATIVE); COCAINE METABOLITE URINE NEGATIVE (NEGATIVE); METHADONE URINE NEGATIVE (NEGATIVE); OPIATES URINE NEGATIVE (NEGATIVE); PHENCYCLIDINE URINE NEGATIVE (NEGATIVE)
[2024-11-28 03:45] VITALS: BP 114/71; O2SAT 95
== END 2024-11-28 04:24 | disposition home or self-care (01) ==
LOC: EDBD 19:28 → M ED 19:28
DX: F10.129 Alcohol abuse with intoxication, unspecified (principal); W19.XXXA Unspecified fall, initial encounter; M43.12 Spondylolisthesis, cervical region; Z79.899 Other long term (current) drug therapy; Y99.9 Unspecified external cause status; G40.909 Epilepsy, unspecified, not intractable, without status epilepticus; I10 Essential (primary) hypertension; E78.5 Hyperlipidemia, unspecified; N40.0 Benign prostatic hyperplasia without lower urinary tract symptoms; F41.9 Anxiety disorder, unspecified; F32.A Depression, unspecified; Z86.72 Personal history of thrombophlebitis; Z87.820 Personal history of traumatic brain injury

== ENCOUNTER 2024-12-02 14:26 | Emergency (ER) | payer MEDICARE, MEDICAID ==
[~2024-12-02] VITALS: Ht 175.3 cm; Wt 79.9 kg
[2024-12-02 14:40] VITALS: TEMP 96.8
[2024-12-02] MEDS ORDERED: NS (Normal Saline) 0.9% 1,000 ML IV SCH (15:20)
[2024-12-02 15:28] LABS: BASO # 0.1 10^3/uL (0.0-0.2); BASO % 0.9 % (0.0-1.0); EOS # 0.4 10^3/uL (0.0-0.5); EOS % 4.7 % (0.0-3.0); HEMATOCRIT 44.8 % (42.0-52.0); HEMOGLOBIN 14.9 g/dl (13.5-17.5); LYMPH # 3.1 10^3/uL (1.5-5.0); LYMPH % 42.5 % (24.0-44.0); MEAN CORPUSCULAR HEMOGLOBIN 31.6 pg (27.0-33.0); MEAN CORPUSCULAR HGB CONC 33.3 g/dl (32.0-36.5); MEAN CORPUSCULAR VOLUME 94.9 fl (80.0-96.0); MONO # 0.4 10^3/uL (0.0-0.8); MONO % 5.7 % (2.0-8.0); NEUTROPHILS # 3.4 10^3/uL (1.5-8.5); NEUTROPHILS % 45.8 % (36.0-66.0); PLATELET COUNT, AUTOMATED 329 10^3/uL (150-450); RED BLOOD COUNT 4.72 10^6/uL (4.30-6.10); WHITE BLOOD COUNT 7.4 10^3/uL (4.0-10.0)
[2024-12-02 15:45] LABS: BLOOD UREA NITROGEN < 5 MG/DL (9-23); CARBON DIOXIDE LEVEL 24 MMOL/L (20-31); CHLORIDE LEVEL 106 MMOL/L (98-107); CREATININE FOR GFR 0.75 MG/DL (0.70-1.30); ETHYL ALCOHOL (ETHANOL) 0.338 % (0.000-0.010); GLOMERULAR FILTRATION RATE > 90.0 (>42); GLUCOSE, FASTING 95 MG/DL (74-106); POTASSIUM SERUM 4.3 MMOL/L (3.5-5.1); SODIUM LEVEL 142 MMOL/L (136-145)
[2024-12-02 17:00] VITALS: BP 128/82
[2024-12-02 17:45] VITALS: O2SAT 96
== END 2024-12-02 17:50 | disposition left against medical advice (07) ==
LOC: M ED 14:26 → EDBD 14:26 → M ED 17:50
DX: S09.90XA Unspecified injury of head, initial encounter (principal); Y92.019 Unspecified place in single-family (private) house as the place of occurrence of the external cause; Y93.9 Activity, unspecified; Y99.9 Unspecified external cause status; W07.XXXA Fall from chair, initial encounter; G40.909 Epilepsy, unspecified, not intractable, without status epilepticus; F10.10 Alcohol abuse, uncomplicated; Z86.718 Personal history of other venous thrombosis and embolism; Z79.899 Other long term (current) drug therapy; Z53.9 Procedure and treatment not carried out, unspecified reason

== ENCOUNTER 2024-12-09 08:42 | Inpatient (IN) | payer MEDICARE, MEDICAID ==
[~2024-12-09] VITALS: Ht 162.6 cm; Wt 79.8 kg
[2024-12-09] MEDS ORDERED: ASPIRIN 325 MG TAB PO SCH (09:00)
[2024-12-09 09:23] LABS: VENOUS BASE EXCESS -1.6 (-2.0-2.0); VENOUS O2 SATURATION 58.2 % (60.0-80.0); VENOUS PARTIAL PRESSURE CO2 43.7 mmHg (38.0-50.0); VENOUS PARTIAL PRESSURE O2 32.4 mmHg (30.0-50.0); VENOUS PH 7.357 UNITS (7.330-7.430); VENOUS STANDARD HCO3 22.1 MMOL/L; VENOUS TOTAL CO2 25.3 MMOL/L (24.0-28.0)
[2024-12-09] MEDS: NS (Normal Saline) 0.9% 1,000 ML IV ONE (09:25)
[2024-12-09 09:27] LABS: BASO # 0.1 10^3/uL (0.0-0.2); BASO % 0.4 % (0.0-1.0); EOS # 0.1 10^3/uL (0.0-0.5); EOS % 0.9 % (0.0-3.0); HEMATOCRIT 41.1 % (42.0-52.0); HEMOGLOBIN 13.9 g/dl (13.5-17.5); LYMPH # 0.9 10^3/uL (1.5-5.0); MEAN CORPUSCULAR HEMOGLOBIN 31.9 pg (27.0-33.0); MEAN CORPUSCULAR HGB CONC 33.8 g/dl (32.0-36.5); MEAN CORPUSCULAR VOLUME 94.3 fl (80.0-96.0); MONO # 0.8 10^3/uL (0.0-0.8); MONO % 6.5 % (2.0-8.0); NEUTROPHILS # 10.8 10^3/uL (1.5-8.5); NEUTROPHILS % 84.6 % (36.0-66.0); PLATELET COUNT, AUTOMATED 189 10^3/uL (150-450); RED BLOOD COUNT 4.36 10^6/uL (4.30-6.10); WHITE BLOOD COUNT 12.8 10^3/uL (4.0-10.0)
[2024-12-09 09:52] LABS: ETHYL ALCOHOL (ETHANOL) < 0.003 % (0.000-0.010)
[2024-12-09 09:54] LABS: ALBUMIN 3.2 G/DL (3.2-5.2); ALKALINE PHOSPHATASE 159 U/L (40-129); ALT/SGPT 33 U/L (7.0-40); AST/SGOT 56 U/L (<34); BILIRUBIN,DIRECT 0.2 MG/DL (<0.4); BILIRUBIN,TOTAL 0.6 MG/DL (0.3-1.2); BLOOD UREA NITROGEN 9 MG/DL (9-23); CALCIUM LEVEL 8.4 MG/DL (8.3-10.6); CARBON DIOXIDE LEVEL 26 MMOL/L (20-31); CHLORIDE LEVEL 103 MMOL/L (98-107); CREATININE FOR GFR 0.82 MG/DL (0.70-1.30); GLOMERULAR FILTRATION RATE > 90.0 (>42); GLUCOSE, FASTING 121 MG/DL (74-106); POTASSIUM SERUM 5.1 MMOL/L (3.5-5.1); SODIUM LEVEL 137 MMOL/L (136-145); TOTAL PROTEIN 7.2 G/DL (5.7-8.2)
[2024-12-09 09:56] LABS: THYROID STIMULATING HORMONE 2.044 uIU/ML (0.55-4.78)
[2024-12-09 09:59] LABS: OSMOLALITY SERUM 299 MOSM/KG (280-301)
[2024-12-09 10:25] LABS: MAGNESIUM LEVEL 1.8 MG/DL (1.8-2.4)
[2024-12-09 10:34] LABS: CPK CREATINE PHOSPHOKINASE 124 U/L (46-171)
[2024-12-09] MEDS ORDERED: MED REC IN PROGRESS XX SCH (10:50)
[2024-12-09] MEDS ORDERED: KEPP10002 PO (11:09)
[2024-12-09] MEDS ORDERED: HOME MED LIST COMPLETE! XX SCH (11:10)
[2024-12-09 11:14] LABS: KETONE, URINE AUTO RFX NEGATIVE (NEGATIVE); NITRITE, URINE AUTO RFX NEGATIVE (NEGATIVE); RBC, URINE AUTO RFX 7 /HPF (0-3); SQUAM EPITHELIAL CELL UR AURFX 0 /HPF (0-6)
[2024-12-09 11:15] LABS: LEUKOCYTE ESTERASE UR AUTO RFX 2+ (NEGATIVE); WBC, URINE AUTO RFX 121 /HPF (0-3)
[2024-12-09] MEDS ORDERED: LORazepam 2 MG TAB PO PRN (11:20)
[2024-12-09 11:36] LABS: AMPHETAMINES LEVEL URINE NEGATIVE (NEGATIVE); BARBITURATES URINE NEGATIVE (NEGATIVE); BENZODIAZEPINES URINE NEGATIVE (NEGATIVE); CANNABINOIDS URINE NEGATIVE (NEGATIVE); COCAINE METABOLITE URINE NEGATIVE (NEGATIVE); METHADONE URINE NEGATIVE (NEGATIVE); OPIATES URINE NEGATIVE (NEGATIVE); PHENCYCLIDINE URINE NEGATIVE (NEGATIVE)
[2024-12-09] MEDS: levETIRAcetam INJection 1,000 MG in D5W 100 ML IV ONE (12:06)
[2024-12-09] MEDS: ENOXAPARIN 40MG/0.4ML SYRINGE (J1650 PER 10MG) SC SCH (12:08)
[2024-12-09] MEDS: THIAMINE 200MG 2ML VIAL IM ONE (12:08)
[2024-12-09] MEDS: MULTIVITAMINS/MINERALS THERAP 1 TAB PO SCH (12:09)
[2024-12-09] MEDS: TAMSULOSIN 0.4 MG CAP PO SCH (12:09)
[2024-12-09] MEDS: LOSARTAN 25 MG TAB PO SCH (12:09)
[2024-12-09] MEDS: FOLIC ACID 1MG TAB PO SCH (12:09)
[2024-12-09] MEDS: BOOSTRIX VACCINE (TETANUS/DIPHTH/ACEL. PERTUSSIS) 0.5ML SYR IM ONE (12:10)
[2024-12-09] MEDS: ASPIRIN 81MG ENTERIC TABLET PO SCH (12:42)
[2024-12-09 13:06] VITALS: BP 143/87; TEMP 99.1; O2SAT 96
[2024-12-09 14:00] VITALS: BP 135/80
[2024-12-09] MEDS: ERTAPENEM SODIUM 1 GM in NS MINI-BAG PLUS 50 ML IV SCH (14:13)
[2024-12-09] MEDS ORDERED: THIAMINE 200MG 2ML VIAL IV SCH (16:00)
[2024-12-09 16:05] VITALS: BP 154/89; TEMP 98.5; O2SAT 98
[2024-12-09 19:11] VITALS: BP 122/74; TEMP 98.6; O2SAT 97
[2024-12-09 20:00] VITALS: BP 122/74
[2024-12-09] MEDS: levETIRAcetam 250MG TABLET (KEPPRA) PO SCH (20:22)
[2024-12-09] MEDS: THIAMINE INJection 500 MG in NS 100 ML IV SCH (20:22)
[2024-12-09] MEDS: ATORVASTATIN 20 MG TAB PO SCH (20:23)
[2024-12-10] VITALS (7 sets, daily range): BP systolic 103–158; BP diastolic 65–82; TEMP 98.3–99; O2SAT 96–100
[2024-12-10 05:28] LABS: HEMATOCRIT 38.4 % (42.0-52.0); MEAN CORPUSCULAR HEMOGLOBIN 31.6 pg (27.0-33.0); MEAN CORPUSCULAR HGB CONC 33.9 g/dl (32.0-36.5); MEAN CORPUSCULAR VOLUME 93.2 fl (80.0-96.0); PLATELET COUNT, AUTOMATED 171 10^3/uL (150-450); RED BLOOD COUNT 4.12 10^6/uL (4.30-6.10); WHITE BLOOD COUNT 12.4 10^3/uL (4.0-10.0)
[2024-12-10 06:00] LABS: BLOOD UREA NITROGEN 10 MG/DL (9-23); CALCIUM LEVEL 8.4 MG/DL (8.3-10.6); CARBON DIOXIDE LEVEL 25 MMOL/L (20-31); CHLORIDE LEVEL 104 MMOL/L (98-107); CHOLESTEROL LEVEL 135 MG/DL (<200); CHOLESTEROL RISK RATIO 2.52 (<5); CREATININE FOR GFR 0.88 MG/DL (0.70-1.30); GLOMERULAR FILTRATION RATE > 90.0 (>42); GLUCOSE, FASTING 113 MG/DL (74-106); HDL CHOLESTEROL 53.5 MG/DL (>40); LDL CHOLESTEROL 66.5 MG/DL (<100); NON-HDL-C 81.5 MG/DL; POTASSIUM SERUM 3.8 MMOL/L (3.5-5.1); SODIUM LEVEL 138 MMOL/L (136-145); TRIGLYCERIDES LEVEL 75 MG/DL (<150)
[2024-12-10] MEDS: POTASSIUM CHLORIDE 10MEQ SR TABLET PO ONE (08:47)
[2024-12-11] MEDS ORDERED: LORazepam 2 MG TAB PO PRN (02:00)
[2024-12-11 03:00] VITALS: BP 126/76; TEMP 98.2; O2SAT 95
[2024-12-11 03:45] VITALS: BP 126/76
[2024-12-11 05:57] LABS: BASO # 0.1 10^3/uL (0.0-0.2); BASO % 0.7 % (0.0-1.0); EOS # 0.3 10^3/uL (0.0-0.5); EOS % 3.5 % (0.0-3.0); HEMATOCRIT 37.3 % (42.0-52.0); HEMOGLOBIN 12.9 g/dl (13.5-17.5); MEAN CORPUSCULAR HEMOGLOBIN 32.8 pg (27.0-33.0); MEAN CORPUSCULAR HGB CONC 34.6 g/dl (32.0-36.5); MEAN CORPUSCULAR VOLUME 94.9 fl (80.0-96.0); MONO # 0.9 10^3/uL (0.0-0.8); MONO % 10.1 % (2.0-8.0); NEUTROPHILS # 5.4 10^3/uL (1.5-8.5); NEUTROPHILS % 62.2 % (36.0-66.0); PLATELET COUNT, AUTOMATED 161 10^3/uL (150-450); RED BLOOD COUNT 3.93 10^6/uL (4.30-6.10); WHITE BLOOD COUNT 8.7 10^3/uL (4.0-10.0)
[2024-12-11 06:00] VITALS: BP 126/76
[2024-12-11 06:25] LABS: ALBUMIN 2.7 G/DL (3.2-5.2); ALKALINE PHOSPHATASE 149 U/L (40-129); ALT/SGPT 36 U/L (7.0-40); AST/SGOT 53 U/L (<34); BILIRUBIN,TOTAL 0.7 MG/DL (0.3-1.2); BLOOD UREA NITROGEN 9 MG/DL (9-23); CALCIUM LEVEL 8.1 MG/DL (8.3-10.6); CARBON DIOXIDE LEVEL 24 MMOL/L (20-31); CHLORIDE LEVEL 104 MMOL/L (98-107); CREATININE FOR GFR 0.82 MG/DL (0.70-1.30); GLOMERULAR FILTRATION RATE > 90.0 (>42); GLUCOSE, FASTING 114 MG/DL (74-106); MAGNESIUM LEVEL 1.5 MG/DL (1.8-2.4); POTASSIUM SERUM 4.1 MMOL/L (3.5-5.1); SODIUM LEVEL 136 MMOL/L (136-145); TOTAL PROTEIN 6.2 G/DL (5.7-8.2)
[2024-12-11 08:26] VITALS: BP 142/93
[2024-12-11] MEDS: MAG SULF 1GM/100ML (MAG RUN) 1 GM in IV 1 EA IV ONE (08:56)
[2024-12-11] MEDS ORDERED: LOSA-527 PO (10:59)
[2024-12-11] MEDS ORDERED: ATOR1TAB21 PO (10:59)
[2024-12-11] MEDS ORDERED: ASPI81TAEC PO (10:59)
[2024-12-11 11:59] VITALS: BP 122/79; TEMP 97.9; O2SAT 100
[2024-12-11] MEDS: FOSFOMYCIN TROMETHAMINE 3 GM POWDER PACKET (MONUROL) PO ONE (13:08)
== END 2024-12-11 13:26 | disposition home or self-care (01) | DRG 690 ==
LOC: EDBD 08:42 → M ED 08:42 → M ED INP 11:18 → M PCU 13:02 → M MSPAV 12-10 16:25
PROVIDERS: ADMIT Internal Medicine; ATTEND Student in an Organized Health Care Education/Training Program
DX: N39.0 Urinary tract infection, site not specified (principal); G40.909 Epilepsy, unspecified, not intractable, without status epilepticus; F10.20 Alcohol dependence, uncomplicated; I10 Essential (primary) hypertension; W19.XXXA Unspecified fall, initial encounter; N40.0 Benign prostatic hyperplasia without lower urinary tract symptoms; Z86.73 Personal history of transient ischemic attack (TIA), and cerebral infarction without residual deficits; Z91.148 Patient's other noncompliance with medication regimen for other reason; S01.81XA Laceration without foreign body of other part of head, initial encounter; Y92.009 Unspecified place in unspecified non-institutional (private) residence as the place of occurrence of the external cause; Z79.899 Other long term (current) drug therapy

== ENCOUNTER 2024-12-17 12:31 | Emergency (ER) | payer MEDICARE, MEDICAID ==
[~2024-12-17] VITALS: Ht 165.1 cm; Wt 79.2 kg
[~2024-12-17 12:31] MED LIST changes: +ASPI81TAEC PO; +ATOR1TAB21 PO; +KEPP10002 PO; +LOSA-527 PO
[2024-12-17 13:00] VITALS: BP 164/96; TEMP 97.4; O2SAT 98
== END 2024-12-17 14:47 | disposition home or self-care (01) ==
LOC: M ED 12:31
DX: Z48.02 Encounter for removal of sutures (principal); I10 Essential (primary) hypertension; F10.10 Alcohol abuse, uncomplicated; Z79.82 Long term (current) use of aspirin; Z79.02 Long term (current) use of antithrombotics/antiplatelets; Z79.899 Other long term (current) drug therapy

== ENCOUNTER 2025-02-06 20:20 | Emergency (ER) | payer MEDICARE, MEDICAID ==
[~2025-02-06] VITALS: Ht 162.6 cm; Wt 79.0 kg
[~2025-02-06 20:20] MED LIST changes: +ASPI81TA26 PO; +ATOR40TA75 PO; +LISI40TA10 PO; -LISI40TA4 PO; +LOSA50TA28 PO
[2025-02-07 07:22] VITALS: BP 168/95; TEMP 98.2; O2SAT 97
== END 2025-02-07 07:47 | disposition home or self-care (01) ==
LOC: M ED 20:20
DX: F10.129 Alcohol abuse with intoxication, unspecified (principal); S00.83XA Contusion of other part of head, initial encounter; W01.198A Fall on same level from slipping, tripping and stumbling with subsequent striking against other object, initial encounter; I10 Essential (primary) hypertension; E78.5 Hyperlipidemia, unspecified; G40.909 Epilepsy, unspecified, not intractable, without status epilepticus; Y92.009 Unspecified place in unspecified non-institutional (private) residence as the place of occurrence of the external cause; Y93.89 Activity, other specified; Y99.9 Unspecified external cause status; Z79.82 Long term (current) use of aspirin; Z79.02 Long term (current) use of antithrombotics/antiplatelets; Z79.899 Other long term (current) drug therapy

== ENCOUNTER 2025-02-10 21:43 | Emergency (ER) | payer MEDICARE, MEDICAID ==
[~2025-02-10] VITALS: Ht 160 cm; Wt 84.4 kg
[2025-02-10 22:36] LABS: BASO # 0.1 10^3/uL (0.0-0.2); BASO % 0.8 % (0.0-1.0); EOS # 0.4 10^3/uL (0.0-0.5); EOS % 4.3 % (0.0-3.0); LYMPH # 3.2 10^3/uL (1.5-5.0); LYMPH % 35.8 % (24.0-44.0); MONO # 0.8 10^3/uL (0.0-0.8); MONO % 8.4 % (2.0-8.0); NEUTROPHILS # 4.5 10^3/uL (1.5-8.5); NEUTROPHILS % 50.4 % (36.0-66.0); PLATELET COUNT, AUTOMATED 264 10^3/uL (150-450)
[2025-02-10 22:53] LABS: KETONE, URINE AUTO RFX NEGATIVE (NEGATIVE); LEUKOCYTE ESTERASE UR AUTO RFX 3+ (NEGATIVE); NITRITE, URINE AUTO RFX NEGATIVE (NEGATIVE); RBC, URINE AUTO RFX 0 /HPF (0-3); SQUAM EPITHELIAL CELL UR AURFX 0 /HPF (0-6); WBC, URINE AUTO RFX TNTC /HPF (0-3)
[2025-02-10 23:05] LABS: AMPHETAMINES LEVEL URINE NEGATIVE (NEGATIVE); BARBITURATES URINE NEGATIVE (NEGATIVE); BENZODIAZEPINES URINE NEGATIVE (NEGATIVE); CANNABINOIDS URINE NEGATIVE (NEGATIVE); COCAINE METABOLITE URINE NEGATIVE (NEGATIVE); METHADONE URINE NEGATIVE (NEGATIVE); OPIATES URINE NEGATIVE (NEGATIVE); PHENCYCLIDINE URINE NEGATIVE (NEGATIVE)
[2025-02-10 23:10] LABS: ALT/SGPT 29 U/L (7.0-40); AST/SGOT 45 U/L (<34); CALCIUM LEVEL 8.4 MG/DL (8.3-10.6); CARBON DIOXIDE LEVEL 22 MMOL/L (20-31); CHLORIDE LEVEL 105 MMOL/L (98-107); CK-MB VALUE MASS 4.8 NG/ML (<3.6); CREATININE FOR GFR 0.90 MG/DL (0.70-1.30); GLOMERULAR FILTRATION RATE > 90.0 (>42); POTASSIUM SERUM 4.4 MMOL/L (3.5-5.1); SALICYLATE LEVEL < 3.0 MG/DL (<30); SODIUM LEVEL 140 MMOL/L (136-145)
[2025-02-10 23:27] LABS: CPK CREATINE PHOSPHOKINASE 180 U/L (46-171); ETHYL ALCOHOL (ETHANOL) 0.336 % (0.000-0.010); MB/CK RELATIVE INDEX 2.66 (< OR =4)
[2025-02-11 00:15] LABS: CK-MB VALUE MASS 5.4 NG/ML (<3.6)
[2025-02-11 00:17] LABS: CPK CREATINE PHOSPHOKINASE 172 U/L (46-171); MB/CK RELATIVE INDEX 3.13 (< OR =4)
[2025-02-11] MEDS: cefTRIAXone SOD 2 GM in DEXTROSE 5% (D5W) ADV/MINI-BAG 50 ML IV ONE (01:41)
[2025-02-11 01:55] VITALS: O2SAT 96
[2025-02-11] MEDS ORDERED: CEFD300C PO (03:53)
[2025-02-11 04:00] VITALS: BP 123/81; TEMP 98.9
[2025-02-11 04:15] VITALS: O2SAT 96
[2025-02-11] MEDS ORDERED: CEFD1CAP9 PO (17:11)
[2025-02-12] MEDS ORDERED: THIA100T7 PO (10:33)
[2025-02-12] MEDS ORDERED: FOLI400T13 PO (10:33)
== END 2025-02-11 04:29 | disposition home or self-care (01) ==
LOC: EDBD 21:43 → EDSEX 21:43 → M ED 21:43
DX: F10.129 Alcohol abuse with intoxication, unspecified (principal); N39.0 Urinary tract infection, site not specified; I10 Essential (primary) hypertension; Z86.79 Personal history of other diseases of the circulatory system; Z79.82 Long term (current) use of aspirin; Z79.02 Long term (current) use of antithrombotics/antiplatelets; Z79.2 Long term (current) use of antibiotics; Z79.899 Other long term (current) drug therapy
CPT/HCPCS: 70450; 71045; 80048; 80076; 80143; 80307; 81001; 82077; 82140; 82550; 82553; 83605; 84443; 84484; 85025; 87088; 87186; 93005; 93041; 94760; 96365; 99285; J0696

== ENCOUNTER 2025-02-11 13:32 | Observation (INO) | payer MEDICARE, MEDICAID ==
[~2025-02-11] VITALS: Ht 162.6 cm; Wt 89.2 kg
[2025-02-11] MEDS: MULTIVITAMINS/MINERALS THERAP 1 TAB PO SCH (09:00)
[~2025-02-11 13:32] MED LIST changes: +CEFD300C PO
[2025-02-11 14:21] LABS: PLATELET COUNT, AUTOMATED 238 10^3/uL (150-450)
[2025-02-11 14:34] LABS: INR 1.07
[2025-02-11 14:49] LABS: ETHYL ALCOHOL (ETHANOL) < 0.003 % (0.000-0.010)
[2025-02-11 14:50] LABS: CALCIUM LEVEL 8.5 MG/DL (8.3-10.6); CARBON DIOXIDE LEVEL 20 MMOL/L (20-31); CHLORIDE LEVEL 103 MMOL/L (98-107); CREATININE FOR GFR 0.94 MG/DL (0.70-1.30); GLOMERULAR FILTRATION RATE 86.1 (>42); POTASSIUM SERUM 4.2 MMOL/L (3.5-5.1); SODIUM LEVEL 138 MMOL/L (136-145)
[2025-02-11] MEDS: levETIRAcetam INJection 1,500 MG in IV 1 EA IV ONE (15:22)
[2025-02-11 16:56] VITALS: BP 141/92
[2025-02-11] MEDS ORDERED: UNRESOLVED CLARIFICATION ENTRY XX STA (16:56)
[2025-02-11] MEDS: LOSARTAN 50 MG TABLET PO ONE (16:56)
[2025-02-11] MEDS: UNRESOLVED CLARIFICATION ENTRY XX STA (16:57)
[2025-02-11] MEDS ORDERED: CEFD1CAP9 PO (17:11)
[2025-02-11] MEDS ORDERED: HOME MED LIST COMPLETE! XX SCH (17:15)
[2025-02-11] MEDS: FOLIC ACID 1 MG TAB PO SCH (17:31)
[2025-02-11] MEDS: THIAMINE 100 MG TAB PO SCH (17:31)
[2025-02-11] MEDS ORDERED: THIAMINE 100 MG TAB PO SCH (21:00)
[2025-02-12] MEDS: levETIRAcetam INJection 1,000 MG in IV 1 EA IV SCH (00:42)
[2025-02-12 06:25] LABS: PLATELET COUNT, AUTOMATED 210 10^3/uL (150-450)
[2025-02-12 07:05] LABS: ALT/SGPT 22 U/L (7.0-40); AST/SGOT 34 U/L (<34); CALCIUM LEVEL 8.7 MG/DL (8.3-10.6); CARBON DIOXIDE LEVEL 25 MMOL/L (20-31); CHLORIDE LEVEL 101 MMOL/L (98-107); CREATININE FOR GFR 0.86 MG/DL (0.70-1.30); GLOMERULAR FILTRATION RATE > 90.0 (>42); POTASSIUM SERUM 4.0 MMOL/L (3.5-5.1); SODIUM LEVEL 138 MMOL/L (136-145)
[2025-02-12] MEDS: ENOXAPARIN 40 MG/0.4 ML SYRINGE (J1650 PER 10MG) SC SCH (08:58)
[2025-02-12] MEDS ORDERED: FOLIC ACID 1 MG TAB PO SCH (09:00)
[2025-02-12] MEDS ORDERED: MULTIVITAMINS/MINERALS THERAP 1 TAB PO SCH (09:00)
[2025-02-12] MEDS ORDERED: THIA100T7 PO (10:33)
[2025-02-12] MEDS ORDERED: FOLI400T13 PO (10:33)
[2025-02-12 15:00] VITALS: BP 129/82; TEMP 97.6; O2SAT 97
== END 2025-02-12 15:00 | disposition home or self-care (01) ==
LOC: M ED 13:32 → EDBD 13:32 → M ED INP 13:33
PROVIDERS: ADMIT Internal Medicine; ATTEND Internal Medicine
DX: G93.41 Metabolic encephalopathy (principal); I10 Essential (primary) hypertension; E78.5 Hyperlipidemia, unspecified; F10.20 Alcohol dependence, uncomplicated; R26.81 Unsteadiness on feet; Z79.82 Long term (current) use of aspirin; Z79.899 Other long term (current) drug therapy; S01.01XA Laceration without foreign body of scalp, initial encounter
CPT/HCPCS: 12015; 36415; 70450; 72125; 80048; 80053; 80177; 82077; 82140; 84145; 84443; 85027; 85610; 85730; 86850; 86900; 86901; 93005; 96365; 96366; 96372; 96375; 97161; 99285; G0378; J1650; J1953; J2060

== ENCOUNTER 2025-05-15 18:51 | Inpatient (IN) | payer MEDICARE, MEDICAID ==
[~2025-05-15] VITALS: Ht 162.6 cm; Wt 78.9 kg
[~2025-05-15 18:51] MED LIST changes: +CEFD1CAP9 PO; +FOLI400T13 PO; +THIA100T7 PO
[2025-05-15 22:45] LABS: BASO # 0.1 10^3/uL (0.0-0.2); BASO % 0.4 % (0.0-1.0); EOS # 0.2 10^3/uL (0.0-0.5); EOS % 1.6 % (0.0-3.0); LYMPH # 2.2 10^3/uL (1.5-5.0); LYMPH % 16.5 % (24.0-44.0); MONO # 0.9 10^3/uL (0.0-0.8); MONO % 6.4 % (2.0-8.0); NEUTROPHILS # 10.0 10^3/uL (1.5-8.5); NEUTROPHILS % 74.7 % (36.0-66.0); PLATELET COUNT, AUTOMATED 279 10^3/uL (150-450)
[2025-05-15 22:57] LABS: INR 1.0
[2025-05-15 23:09] LABS: CK-MB VALUE MASS 4.8 NG/ML (<3.6); ETHYL ALCOHOL (ETHANOL) 0.074 % (0.000-0.010)
[2025-05-15 23:10] LABS: CPK CREATINE PHOSPHOKINASE 205 U/L (46-171); MB/CK RELATIVE INDEX 2.34 (< OR =4)
[2025-05-15 23:15] LABS: ALT/SGPT 41 U/L (7.0-40); AST/SGOT 49 U/L (<34); CALCIUM LEVEL 8.6 MG/DL (8.3-10.6); CARBON DIOXIDE LEVEL 23 MMOL/L (20-31); CHLORIDE LEVEL 100 MMOL/L (98-107); CREATININE FOR GFR 0.91 MG/DL (0.70-1.30); GLOMERULAR FILTRATION RATE 89.6 (>42); MAGNESIUM LEVEL 1.9 MG/DL (1.8-2.4); POTASSIUM SERUM 4.1 MMOL/L (3.5-5.1); SODIUM LEVEL 135 MMOL/L (136-145)
[2025-05-15] MEDS: THIAMINE 100 MG TAB PO ONE (23:32)
[2025-05-15] MEDS: FOLIC ACID 1 MG TAB PO ONE (23:32)
[2025-05-15] MEDS: TETANUS/DIPHTH/ACEL. PERTUSSIS 0.5 ML SYR IM ONE (23:38)
[2025-05-16] VITALS (7 sets, daily range): BP systolic 92–149; BP diastolic 67–94; TEMP 97.4–97.9; O2SAT 93–99
[2025-05-16 02:32] LABS: KETONE, URINE AUTO RFX NEGATIVE (NEGATIVE); RBC, URINE AUTO RFX 35 /HPF (0-3); SQUAM EPITHELIAL CELL UR AURFX 0 /HPF (0-6)
[2025-05-16 02:40] LABS: LEUKOCYTE ESTERASE UR AUTO RFX 3+ (NEGATIVE); NITRITE, URINE AUTO RFX POSITIVE (NEGATIVE); WBC, URINE AUTO RFX TNTC /HPF (0-3)
[2025-05-16 02:53] LABS: AMPHETAMINES LEVEL URINE NEGATIVE (NEGATIVE); BARBITURATES URINE NEGATIVE (NEGATIVE); BENZODIAZEPINES URINE NEGATIVE (NEGATIVE); COCAINE METABOLITE URINE NEGATIVE (NEGATIVE); METHADONE URINE NEGATIVE (NEGATIVE); OPIATES URINE NEGATIVE (NEGATIVE); PHENCYCLIDINE URINE NEGATIVE (NEGATIVE)
[2025-05-16] MEDS: D5W/0.9% SODIUM CHLORIDE 1,000 ML IV ONE (03:13)
[2025-05-16] MEDS: cefTRIAXone SOD 1 GM in DEXTROSE 5% (D5W) ADV/MINI-BAG 50 ML IV ONE (03:13)
[2025-05-16] MEDS ORDERED: MOM 30 ML SUSPENSION UDC PO PRN (03:30)
[2025-05-16] MEDS ORDERED: MAALOX 30 ML SUSP *UDC PO PRN (03:30)
[2025-05-16] MEDS: LIDOCAINE W/EPINEPHrine 1% 20 ML VIAL SC ONE (03:55)
[2025-05-16] MEDS: DERMABOND TOPICAL SKIN ADHESIVE TOP ONE (04:51)
[2025-05-16 04:55] LABS: CANNABINOIDS URINE NEGATIVE (NEGATIVE)
[2025-05-16] MEDS: PIPERACILLIN/TAZOBACTAM SOD 4.5 GM in DEXTROSE 5% (D5W) ADV/MINI-BAG 50 ML IV SCH (06:13)
[2025-05-16] MEDS ORDERED: HOME MED LIST COMPLETE! XX SCH (08:45)
[2025-05-16] MEDS: PANTOPRAZOLE 40MG VIAL IV SCH (08:57)
[2025-05-16] MEDS: LOSARTAN 50 MG TABLET PO SCH (08:59)
[2025-05-16] MEDS: MULTIVITAMINS/MINERALS THERAP 1 TAB PO SCH (11:10)
[2025-05-16] MEDS: FOLIC ACID 1 MG TAB PO SCH (11:10)
[2025-05-16] MEDS: THIAMINE 100 MG TAB PO SCH (11:10)
[2025-05-16] MEDS: MEROPENEM 1 GM in IV 1 EA IV SCH (20:35)
[2025-05-16] MEDS: ATORVASTATIN 20 MG TAB PO SCH (20:35)
[2025-05-16] MEDS: ACETAMINOPHEN 325 MG TAB PO PRN (20:36)
[2025-05-16] MEDS ORDERED: ENOXAPARIN 40 MG/0.4 ML SYRINGE (J1650 PER 10MG) SC ONE (21:00)
[2025-05-17 00:42] VITALS: BP 102/68; TEMP 97.5; O2SAT 96
[2025-05-17 04:09] VITALS: BP 123/82; TEMP 97.3; O2SAT 98
[2025-05-17 06:36] LABS: PLATELET COUNT, AUTOMATED 269 10^3/uL (150-450)
[2025-05-17 07:34] LABS: ALT/SGPT 31.0 U/L (7.0-40); AST/SGOT 34.0 U/L (<34); CALCIUM LEVEL 8.7 MG/DL (8.3-10.6); CARBON DIOXIDE LEVEL 25.0 MMOL/L (20-31); CHLORIDE LEVEL 100.0 MMOL/L (98-107); CREATININE FOR GFR 1.04 MG/DL (0.70-1.30); GLOMERULAR FILTRATION RATE 76.3 (>42); MAGNESIUM LEVEL 1.7 MG/DL (1.8-2.4); POTASSIUM SERUM 3.8 MMOL/L (3.5-5.1); SODIUM LEVEL 135.0 MMOL/L (136-145)
[2025-05-17 07:50] VITALS: BP 119/81; TEMP 97.3; O2SAT 100
[2025-05-17 09:00] VITALS: BP 116/80
[2025-05-17 09:10] VITALS: BP 116/80
== END 2025-05-17 11:58 | disposition short-term general hospital (02) | DRG 125 ==
LOC: EDBD 18:51 → M ED 18:51 → M ED INP 05-16 03:29 → M MSPAV 05-16 05:47
PROVIDERS: ADMIT Student in an Organized Health Care Education/Training Program; ATTEND Student in an Organized Health Care Education/Training Program
DX: S02.32XA Fracture of orbital floor, left side, initial encounter for closed fracture (principal); N39.0 Urinary tract infection, site not specified; G93.40 Encephalopathy, unspecified; I10 Essential (primary) hypertension; S05.12XA Contusion of eyeball and orbital tissues, left eye, initial encounter; F10.20 Alcohol dependence, uncomplicated; G40.909 Epilepsy, unspecified, not intractable, without status epilepticus; Z86.73 Personal history of transient ischemic attack (TIA), and cerebral infarction without residual deficits; E78.5 Hyperlipidemia, unspecified; F32.A Depression, unspecified; Z79.82 Long term (current) use of aspirin; Z79.899 Other long term (current) drug therapy; W18.30XA Fall on same level, unspecified, initial encounter; Y92.009 Unspecified place in unspecified non-institutional (private) residence as the place of occurrence of the external cause

== ENCOUNTER → 2025-06-26 | Outpatient (CLI) | payer MEDICARE, MEDICAID ==
[~2025-06-26] MED LIST changes: -BACTDSTA PO; +SULF-8 PO
[2025-06-28 12:27] LABS: PSA % FREE 24.0 % (calc) (>25); PSA FREE 1.9 ng/mL; PSA TOTAL 8.0 ng/mL (< OR = 4.0)
== END ==
LOC: M PLALAB 08:12
PROVIDERS: ATTEND Urology
DX: Z87.898 Personal history of other specified conditions (principal)

== ENCOUNTER → 2025-07-22 | Outpatient (CLI) | payer MEDICARE, MEDICAID | LOC: M PLAIMG 09:56 | PROVIDERS: ATTEND Family Medicine Addiction Medicine | DX: S69.92XA Unspecified injury of left wrist, hand and finger(s), initial encounter (principal); Y93.9 Activity, unspecified; Y92.9 Unspecified place or not applicable ==